=== PATIENT | female | born 1960 | race Caucasian/White ===

== ENCOUNTER 2023-01-29 18:32 | Inpatient (IN) ==
--- NOTE | 2023-01-29 18:50 | Emergency Department Note ---
Impression & Plan Diabetes mellitus type 1 with complications, Elevated troponin, Nausea & vomiting ED Provider Note Provider: Zeferino Gonsalez MD DATE OF SERVICE: 01/29/2023 CHIEF COMPLAINT: Elevated blood sugar, nausea and vomiting HISTORY OF PRESENT ILLNESS: Patient is a 62-year-old history of diabetes by her report type I as well as hypothyroidism presenting here reporting elevated blood sugars and episodes of nausea and vomiting earlier. States her Dexcom has been functioning high for at least the last day. Blood sugars in the 400s at home and utilize extra insulin. Has been following with the diabetes clinic care and testing was concerning for type I component. Did have some changes of her medi cations the last several months. Denies significant illness. Denies nausea now. Denies abdominal pain now or earlier. Does report some thirst but denies any diarrhea or sick contacts. No trauma reported. PAST MEDICAL HISTORY: As noted above MEDICATIONS: Reviewed home medication list including insulin she did take extra units of insulin today. SOCIAL HISTORY: Lives with sister PHYSICAL EXAM: GENERAL: alert and oriented in no acute distress on stretcher Head: normocephalic and atraumatic EYES: No injection, discharge or icterus. NECK: Trachea midline. Supple. ENT: Mucous membranes pink and moist. LUNGS: Airway patent. No retractions. Breath sounds clear with good air entry bilaterally. HEART: Regular rate and rhythm. No chest wall tenderness ABDOMEN: Soft and non-tender, without guarding or rebound. SKIN: Acyanotic, warm, dry, without rashes EXTREMITIES: Without swelling, tenderness or deformity NEUROLOGICAL: No focal deficits. No aphasia. No facial droop or slurred speech. Ambulatory. EK bpm normal sinus rhythm. No PVC or PAC. No acute ST segment elevation or depression with a QTc of 457. CONTINUOUS CARDIAC MONITORING: was ordered and showed a heart rate of 80s-90s bpm in normal sinus rhythm Patient's laboratory studies and imaging reviewed. Differential includes Gastroenteritis, food borne illness, infections, appendicitis, diverticulitis, inflammatory bowel disease, obstruction, GI bleed, biliary pathology, volvulus, DKA/HHS as well as other pathologies. IMPRESSION/MEDICAL DECISION MAKING: Patient with history of diabetes from the reviewed records from the diabetes visits appears to be a type I. Blood sugar significantly elevated. Evidently has been almost running out of her insulin at home. [id number] testing completed with some anion gap. Formal labs sent. VBG however reassuring without significant acidosis and thus doubt true DKA at this time. Given some IV fluid here. Does have a leukocytosis of 16 of unclear etiology. Could represent a viral gastroenteritis but symptoms have improved now and she is has a benign abdomen. Doubt acute intra-abdominal pathology such as perforation, obstruction, cholecystitis, appendicitis, or diverticulitis given her well exam of the abdomen. Negative COVID testing. Formal CMP with some slight pseudohyponatremia. Bicarb of 20 with an anion gap of 15. Creatinine 1.22. Normal blood sugar 424. No signs of hepatitis or pancreatitis. Question if she may be teetering on the edge of transitioning to more of a ketotic state or DKA. In addition IV fluid and given some insulin. Discussed with her staying for further blood sugar optimization and care given her GI symptoms and these findings. Troponin does return elevated 108. Unclear of baseline. No severe renal dysfunction. EKG without acute STEMI findings. Will need trended. Given a dose of aspirin with some Zofran here to prevent vomiting this. Discussed further observation. She was in agreement the hospitalist contacted. DIAGNOSIS: Hyperglycemia due to type 1 diabetes, elevated troponin, nausea and vomiting DISPOSITION: Hospitalist will evaluate Patient was agreeable with this plan. Past Med/Surg History Social History Smoking Status: Never smoker Second Hand Exposure: No; Do You Dip or Chew Tobacco: No; Tobacco Cessation Education Requested by Patient: No Hx Alcohol Use: No Hx Substance Use: No Communication Ability: Effective Beliefs That Will Affect Care: None Current Living Situation: Family Other Information That Helps Us Care for You: No Feels Safe at Home: Yes Safety Concerns: Feels Safe At This Time Assistive Devices: None Allergies Allergies Allergy/AdvReac Type Severity Reaction Status Date / Time tetanus toxoid, adsorbed AdvReac Intermediate SWELLING Verified 01/29/23 19:26 AT [facility] Home Meds Home Medications Medication Instructions Recorded Confirmed aspirin 81 mg tablet,delayed 81 mg PO DAILY 09/04/22 01/29/23 release (Adult Low Dose Aspirin) blood sugar diagnostic (OneTouch 09/04/22 11/14/22 Ultra Test strips) blood-glucose meter (OneTouch 09/04/22 11/14/22 Ultra2 Meter) blood-glucose meter,continuous 09/04/22 11/14/22 (Dexcom G6 Braiding Operator) blood-glucose sensor (Dexcom G6 09/04/22 11/14/22 Sensor device) blood-glucose transmitter (Dexcom 09/04/22 11/14/22 G6 Transmitter device) cholecalciferol (vitamin D3) 25 25 mcg PO DAILY 09/04/22 01/29/23 mcg (1,000 unit) chewable tablet furosemide 40 mg tablet 40 mg PO DAILY 09/04/22 01/29/23 liver detox 1 dose PO DAILY 09/04/22 01/29/23 insulin detemir U-100 100 unit/mL 11 unit subcut TID 01/29/23 01/29/23 (3 mL) subcutaneous pen (Levemir FlexPen) Previous Rx's Medication Instructions Recorded rosuvastatin 10 mg tablet (Crestor) 10 mg PO DAILY #30 tabs 09/05/22 levothyroxine 112 mcg tablet 112 mcg PO DAILY #30 tabs 09/06/22 insulin aspart U-100 100 unit/mL 8 unit (0.08 mL) subcut TID #7.2 mL 12/26/22 subcutaneous solution (Novolog U-100 Insulin aspart) Results & Data (ED) Vital Signs Vital Signs - 24 hr 01/29/23 18:35 01/29/23 18:51 01/29/23 18:51 Temperature 36.7 C 36.7 C Temperature Source Oral Oral Pulse Rate 98 H 94 H Pulse Rate [Right Finger] 93 H Pulse Rate from SpO2 Sensor Pulse Rhythm Regular Regular Pulse Rhythm [Right Finger] Regular Pulse Strength Normal Pulse Strength [Right Finger] Normal Respiratory Rate 22 23 13 Respiratory Effort / Characteristics Non-Labored Spontaneous Non-Labored Spontaneous Respiratory Depth Normal Normal Respiratory Pattern Regular Regular Blood Pressure 106/58 L Blood Pressure [Right Arm] 106/58 L Blood Pressure Mean 74 Blood Pressure Mean [Right Arm] 74 Blood Pressure Position Sitting Blood Pressure Position [Right Arm] Lying Pulse Oximetry 100 99 99 Oxygen Delivery Method Room Air Room Air Sepsis Recent Fever Within 48 Hours No Sepsis New/Unexplained Change in Mental Status No Sepsis Action Taken by Nursing No Action Required 01/29/23 18:50 01/29/23 18:48 01/29/23 18:50 Temperature Temperature Source Pulse Rate 94 H 94 H 94 H Pulse Rate [Right Finger] Pulse Rate from SpO2 Sensor 94 H 93 H Pulse Rhythm Pulse Rhythm [Right Finger] Pulse Strength Pulse Strength [Right Finger] Respiratory Rate 22 31 H Respiratory Effort / Characteristics Respiratory Depth Respiratory Pattern Blood Pressure Blood Pressure [Right Arm] Blood Pressure Mean Blood Pressure Mean [Right Arm] Blood Pressure Position Blood Pressure Position [Right Arm] Pulse Oximetry 99 99 Oxygen Delivery Method Sepsis Recent Fever Within 48 Hours Sepsis New/Unexplained Change in Mental Status Sepsis Action Taken by Nursing 01/29/23 19:00 01/29/23 19:00 01/29/23 19:10 Temperature Temperature Source Pulse Rate 93 H 93 H Pulse Rate [Right Finger] Pulse Rate from SpO2 Sensor 93 H 93 H Pulse Rhythm Pulse Rhythm [Right Finger] Pulse Strength Pulse Strength [Right Finger] Respiratory Rate 34 H 27 H Respiratory Effort / Characteristics Respiratory Depth Respiratory Pattern Blood Pressure 112/53 L Blood Pressure [Right Arm] Blood Pressure Mean 77 Blood Pressure Mean [Right Arm] Blood Pressure Position Blood Pressure Position [Right Arm] Pulse Oximetry 99 100 Oxygen Delivery Method Sepsis Recent Fever Within 48 Hours Sepsis New/Unexplained Change in Mental Status Sepsis Action Taken by Nursing 01/29/23 19:20 01/29/23 19:30 01/29/23 19:30 Temperature Temperature Source Pulse Rate 93 H 94 H Pulse Rate [Right Finger] Pulse Rate from SpO2 Sensor 93 H 94 H Pulse Rhythm Pulse Rhythm [Right Finger] Pulse Strength Pulse Strength [Right Finger] Respiratory Rate 20 0 L Respiratory Effort / Characteristics Respiratory Depth Respiratory Pattern Blood Pressure 116/60 Blood Pressure [Right Arm] Blood Pressure Mean 90 Blood Pressure Mean [Right Arm] Blood Pressure Position Blood Pressure Position [Right Arm] Pulse Oximetry 99 98 Oxygen Delivery Method Sepsis Recent Fever Within 48 Hours Sepsis New/Unexplained Change in Mental Status Sepsis Action Taken by Nursing 01/29/23 19:40 01/29/23 19:50 01/29/23 20:00 Temperature Temperature Source Pulse Rate 95 H 98 H Pulse Rate [Right Finger] Pulse Rate from SpO2 Sensor 95 H 98 H Pulse Rhythm Pulse Rhythm [Right Finger] Pulse Strength Pulse Strength [Right Finger] Respiratory Rate 21 15 Respiratory Effort / Characteristics Respiratory Depth Respiratory Pattern Blood Pressure 111/58 L Blood Pressure [Right Arm] Blood Pressure Mean 62 Blood Pressure Mean [Right Arm] Blood Pressure Position Blood Pressure Position [Right Arm] Pulse Oximetry 98 99 Oxygen Delivery Method Sepsis Recent Fever Within 48 Hours Sepsis New/Unexplained Change in Mental Status Sepsis Action Taken by Nursing 01/29/23 20:00 01/29/23 20:10 01/29/23 20:20 Temperature Temperature Source Pulse Rate 94 H 93 H 93 H Pulse Rate [Right Finger] Pulse Rate from SpO2 Sensor 94 H 93 H 93 H Pulse Rhythm Pulse Rhythm [Right Finger] Pulse Strength Pulse Strength [Right Finger] Respiratory Rate 6 L 22 17 Respiratory Effort / Characteristics Respiratory Depth Respiratory Pattern Blood Pressure Blood Pressure [Right Arm] Blood Pressure Mean Blood Pressure Mean [Right Arm] Blood Pressure Position Blood Pressure Position [Right Arm] Pulse Oximetry 98 98 98 Oxygen Delivery Method Sepsis Recent Fever Within 48 Hours Sepsis New/Unexplained Change in Mental Status Sepsis Action Taken by Nursing 01/29/23 20:30 01/29/23 20:30 01/29/23 20:40 Temperature Temperature Source Pulse Rate 94 H 94 H Pulse Rate [Right Finger] Pulse Rate from SpO2 Sensor 94 H 94 H Pulse Rhythm Pulse Rhythm [Right Finger] Pulse Strength Pulse Strength [Right Finger] Respiratory Rate 15 24 Respiratory Effort / Characteristics Respiratory Depth Respiratory Pattern Blood Pressure 114/59 L Blood Pressure [Right Arm] Blood Pressure Mean 87 Blood Pressure Mean [Right Arm] Blood Pressure Position Blood Pressure Position [Right Arm] Pulse Oximetry 98 97 Oxygen Delivery Method Sepsis Recent Fever Within 48 Hours Sepsis New/Unexplained Change in Mental Status Sepsis Action Taken by Nursing 01/29/23 20:50 01/29/23 21:00 01/29/23 21:01 Temperature Temperature Source Pulse Rate 95 H 95 H 94 H Pulse Rate [Right Finger] Pulse Rate from SpO2 Sensor 97 H 95 H 94 H Pulse Rhythm Pulse Rhythm [Right Finger] Pulse Strength Pulse Strength [Right Finger] Respiratory Rate 22 16 19 Respiratory Effort / Characteristics Respiratory Depth Respiratory Pattern Blood Pressure Blood Pressure [Right Arm] Blood Pressure Mean Blood Pressure Mean [Right Arm] Blood Pressure Position Blood Pressure Position [Right Arm] Pulse Oximetry 88 L 97 97 Oxygen Delivery Method Sepsis Recent Fever Within 48 Hours Sepsis New/Unexplained Change in Mental Status Sepsis Action Taken by Nursing 01/29/23 21:01 01/29/23 21:10 01/29/23 21:20 Temperature Temperature Source Pulse Rate 94 H 93 H Pulse Rate [Right Finger] Pulse Rate from SpO2 Sensor 94 H 94 H Pulse Rhythm Pulse Rhythm [Right Finger] Pulse Strength Pulse Strength [Right Finger] Respiratory Rate 22 19 Respiratory Effort / Characteristics Respiratory Depth Respiratory Pattern Blood Pressure 98/51 L Blood Pressure [Right Arm] Blood Pressure Mean 67 Blood Pressure Mean [Right Arm] Blood Pressure Position Blood Pressure Position [Right Arm] Pulse Oximetry 98 98 Oxygen Delivery Method Sepsis Recent Fever Within 48 Hours Sepsis New/Unexplained Change in Mental Status Sepsis Action Taken by Nursing Laboratory Data 01/29/23 18:52 01/29/23 18:52 Lab Results 01/29/23 01/29/23 01/29/23 Range/Units 18:48 18:52 18:52 WBC 16.40 H (4.8-10.8) K/ul RBC 4.41 (4.20-5.40) M/uL Hgb 13.9 (12.0-16.0) g/dl POC Hgb 12.9 (12.0-16.0) g/dl Hct 38.2 (37.0-47.0) % POC Hct 38 (37-47) % MCV 86.6 (80.0-100.0) fL MCH 31.5 (25.0-34.0) pg MCHC 36.4 H (32.0-36.0) g/dL RDW Std Deviation 39.6 (36.4-46.3) fL RDW Coeff of Tressa 12.5 (11.5-14.5) % Plt Count 230 (130-400) K/uL MPV 9.7 (9.4-12.4) fL Immature Gran % (Auto) 0.5 % Neut % (Auto) 77.0 % Lymph % (Auto) 11.1 % Wright % (Auto) 11.1 % Eos % (Auto) 0.0 % Baso % (Auto) 0.3 % Neut # (Auto) 12.62 H (1.40-6.50) K/uL Lymph # (Auto) 1.82 (1.2-3.4) K/uL Wright # (Auto) 1.82 H (0.11-0.59) K/uL Eos # (Auto) 0.00 (0-0.50) K/uL Baso # (Auto) 0.05 (0-0.2) K/uL Immature Gran # (Auto) 0.09 (0.01-0.20) K/uL VBG pH (7.36-7.41) VBG pCO2 (38-50) mmHg VBG pO2 mmHg VBG HCO3 mmol/L VBG O2 Saturation % VBG Base Excess mEq/L POC Sodium 136 (135-144) mmol/L Sodium 134 L (136-145) mmol/L POC Potassium 3.8 (3.3-5.0) mmol/L Potassium 3.8 (3.5-5.1) mmol/L POC Chloride 100 L (101-112) mmol/L Chloride 99 (98-107) mmol/L Carbon Dioxide 20 L (21-32) mmol/L POC Total CO2 19 L (24-31) mmol/L Anion Gap 15 H (3-11) POC Anion Gap 22.0 (16-25) mmol/L POC BUN 38 H (7-18) mg/dl BUN 42 H (6-23) mg/dl Creatinine 1.22 H (0.6-1.2) mg/dl POC Creatinine 1.1 (0.6-1.3) mg/dl Est Cr Clr Drug Dosing 47.6 ml/min Est GFR ( Amer) 55.0 ml/min Est GFR (Non-Af Amer) 47.4 ml/min BUN/Creatinine Ratio 34.4 H (10-20) Glucose 424 H* (70-99(Fasting)) mg/dl POC Glucose (other) 419 H* (70-99) mg/dl Calcium 9.5 (8.6-10.3) mg/dl POC Ioniz Calcium Aliya 1.18 (1.12-1.32) mmol/l Magnesium 1.9 (1.7-2.4) mg/dl Total Bilirubin 0.9 (0.2-1.0) mg/dl AST 14 (13-39) U/L ALT 7 (7-52) U/L Alkaline Phosphatase 72 (34-104) U/L Troponin I High Sens 108.6 H* (0-14) pg/ml Total Protein 7.0 (6.0-8.3) gm/dl Albumin 4.0 (3.4-5.0) gm/dl Globulin 3.0 (2.5-4.0) gm/dl Albumin/Globulin Ratio 1.3 (0.9-2) Lipase 8 L (11-82) U/L SARS-CoV-2, RNA, NAAT (NEGATIVE) 01/29/23 01/29/23 Range/Units 18:55 18:55 WBC (4.8-10.8) K/ul RBC (4.20-5.40) M/uL Hgb (12.0-16.0) g/dl POC Hgb (12.0-16.0) g/dl Hct (37.0-47.0) % POC Hct (37-47) % MCV (80.0-100.0) fL MCH (25.0-34.0) pg MCHC (32.0-36.0) g/dL RDW Std Deviation (36.4-46.3) fL RDW Coeff of Tressa (11.5-14.5) % Plt Count (130-400) K/uL MPV (9.4-12.4) fL Immature Gran % (Auto) % Neut % (Auto) % Lymph % (Auto) % Wright % (Auto) % Eos % (Auto) % Baso % (Auto) % Neut # (Auto) (1.40-6.50) K/uL Lymph # (Auto) (1.2-3.4) K/uL Wright # (Auto) (0.11-0.59) K/uL Eos # (Auto) (0-0.50) K/uL Baso # (Auto) (0-0.2) K/uL Immature Gran # (Auto) (0.01-0.20) K/uL VBG pH 7.37 (7.36-7.41) VBG pCO2 35 L (38-50) mmHg VBG pO2 34 mmHg VBG HCO3 20 mmol/L VBG O2 Saturation 65.4 % VBG Base Excess -4.4 mEq/L POC Sodium (135-144) mmol/L Sodium (136-145) mmol/L POC Potassium (3.3-5.0) mmol/L Potassium (3.5-5.1) mmol/L POC Chloride (101-112) mmol/L Chloride (98-107) mmol/L Carbon Dioxide (21-32) mmol/L POC Total CO2 (24-31) mmol/L Anion Gap (3-11) POC Anion Gap (16-25) mmol/L POC BUN (7-18) mg/dl BUN (6-23) mg/dl Creatinine (0.6-1.2) mg/dl POC Creatinine (0.6-1.3) mg/dl Est Cr Clr Drug Dosing ml/min Est GFR ( Amer) ml/min Est GFR (Non-Af Amer) ml/min BUN/Creatinine Ratio (10-20) Glucose (70-99(Fasting)) mg/dl POC Glucose (other) (70-99) mg/dl Calcium (8.6-10.3) mg/dl POC Ioniz Calcium Aliya (1.12-1.32) mmol/l Magnesium (1.7-2.4) mg/dl Total Bilirubin (0.2-1.0) mg/dl AST (13-39) U/L ALT (7-52) U/L Alkaline Phosphatase (34-104) U/L Troponin I High Sens (0-14) pg/ml Total Protein (6.0-8.3) gm/dl Albumin (3.4-5.0) gm/dl Globulin (2.5-4.0) gm/dl Albumin/Globulin Ratio (0.9-2) Lipase (11-82) U/L SARS-CoV-2, RNA, NAAT NEGATIVE (NEGATIVE) Administered Medications Discontinued Medications Aspirin (Aspirin 81 Mg Chew) 324 mg PO NOW STA Stop: 01/29/23 19:41 Last Admin: 01/29/23 20:13 Dose: 324 mg Documented By: HUMBERTO Sodium Chloride (Nss) 500 mls @ 999 mls/hr IV .Q31M KELLY Stop: 01/29/23 19:30 Last Infusion: 01/29/23 19:39 Dose: 0 mls/hr Documented By: Admin: 01/29/23 19:08 Dose: 999 mls/hr Documented By: GM Insulin Aspart (Insulin Aspart Per Unit Charge) 10 units SC NOW STA Stop: 01/29/23 23:30 Last Admin: 01/29/23 23:39 Dose: 10 units Documented By: BECKI Co-signed By: MYLENE Insulin Glargine (Lantus Per Unit Charge) 10 units SQ ONCE ONE Stop: 01/29/23 23:31 Last Admin: 01/29/23 23:39 Dose: 10 units Documented By: BECKI Co-signed By: MYLENE Insulin Human Regular (Novolin-R Insulin Per Unit Charge) 7 units IV NOW STA Stop: 01/29/23 19:41 Last Admin: 01/29/23 20:13 Dose: 7 units Documented By: HUMBERTO Co-signed By: GROUP PRESIDENT Ondansetron HCl (Ondansetron Inj 2 Mg/Ml 2 Ml Vial) 4 mg IV NOW STA Stop: 01/29/23 19:41 Last Admin: 01/29/23 20:13 Dose: 4 mg Documented By: ML Discharge Plan Visit Data Chief Complaint: Hyperglycemia Stated Complaint: HYPERGLYCEMIA ED Provider: Zeferino Gonsalez Discharge Problem: Diabetes mellitus type 1 with complications, Elevated troponin, Nausea & vomiting Patient Disposition: Admitted As Inpatient Discharge Instructions Interventions: ED Discharge Assessment Last Done: 01/29/23 21:52
[2023-01-29 19:00] LABS: iSTAT Creatinine 1.1 mg/dl (0.6-1.3); iSTAT Hemoglobin 12.9 g/dl (12.0-16.0); iSTAT Ionized Calcium 1.18 mmol/l (1.12-1.32); iSTAT Potassium 3.8 mmol/L (3.3-5.0)
[2023-01-29] MEDS ORDERED: SODIUM CHLORIDE 0.9% 500 ML IV SCH (19:00)
[2023-01-29 19:02] LABS: Base Excess VBG -4.4 mEq/L; HCO3 VBG 20 mmol/L; Oxygen Saturation VBG 65.4 %; PCO2 VBG 35 mmHg (38-50); PO2 VBG 34 mmHg; pH VBG 7.37 (7.36-7.41)
[2023-01-29 19:02] LABS: Basophils # (auto) 0.05 K/uL (0-0.2); Basophils % (auto) 0.3 %; Hematocrit (blood only) 38.2 % (37.0-47.0); Hemoglobin 13.9 g/dl (12.0-16.0); Immature Granulocytes # (auto) 0.09 K/uL (0.01-0.20); Immature Granulocytes % (auto) 0.5 %; Lymphocytes # (auto) 1.82 K/uL (1.2-3.4); Lymphocytes % (auto) 11.1 %; Mean Corpuscular Hemoglobin 31.5 pg (25.0-34.0); Mean Corpuscular Hgb Conc 36.4 g/dL (32.0-36.0); Mean Corpuscular Volume 86.6 fL (80.0-100.0); Mean Platelet Volume 9.7 fL (9.4-12.4); Monocytes # (auto) 1.82 K/uL (0.11-0.59); Monocytes % (auto) 11.1 %; Neutrophils # (auto) 12.62 K/uL (1.40-6.50); Platelet Count 230 K/uL (130-400); RDW Coefficient of Variation 12.5 % (11.5-14.5); RDW Standard Deviation 39.6 fL (36.4-46.3); Red Blood Count 4.41 M/uL (4.20-5.40)
[2023-01-29 19:27] LABS: Albumin Globulin Ratio 1.3 (0.9-2); BUN Creatinine Ratio 34.4 (10-20); Bilirubin,Total 0.9 mg/dl (0.2-1.0); Calcium 9.5 mg/dl (8.6-10.3); Creatinine Clr Calc Pharmacy 47.6 ml/min; Est GFR (Non-African American) 47.4 ml/min; Magnesium 1.9 mg/dl (1.7-2.4); Potassium 3.8 mmol/L (3.5-5.1)
[2023-01-29 19:39] LABS: Troponin I High Sensitivity 108.6 pg/ml (0-14)
[2023-01-29] MEDS ORDERED: NovoLIN-R INSULIN PER UNIT CHARGE IV STA (19:40)
[2023-01-29] MEDS ORDERED: ONDANSETRON INJ 2 MG/ML 2 ML VIAL IV STA (19:40)
[2023-01-29] MEDS ORDERED: ASPIRIN 81 MG CHEW PO STA (19:40)
--- NOTE | 2023-01-29 21:21 | History & Physical Report ---
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 Glucose was 424 in the ED, received 7 units of regular insulin IV from the ED, with improvement in glucose to 332. Patient reports that she usually takes Levemir 11 units 3 times daily and NovoLog 8 units 3 times daily together. However, patient does report recent change in October from Levemir 25 units in the morning to 11 units subcu twice daily. Patient will get formulary interchange to glargine 10 units subcu this evening, along with 10 units NovoLog, will continue with coverage overnight, and dosing will need to be verified in the morning with her commercial reporter. No signs of infection. Patient had received normal saline 500 mL from the ED We will place on NSS + KCl 20 mEq at 125 MLS per hour, and follow serial BMP and magnesium levels Elevated troponin/hypertension/history lower extremity edema- The patient will be admitted to telemetry for serial cardiac enzymes, serial EKG's, cardiac rhythm monitoring and a 2-D echocardiogram with Dopplers. Troponin 108.6 on admission, likely supply demand mismatch She was given aspirin 324 mg from the ED Continue aspirin 81 mg daily Hold furosemide Hypothyroidism- Continue levothyroxine at 112 mcg daily Hyperlipidemia- Continue rosuvastatin 10 mg daily History of Present Illness Chief Complaint: The patient is referred to the emergency department by her commercial reporter due to elevated blood sugars Primary Care Provider: Rito Berrios PA-C The patient is a 62-year-old female with a past medical history including diabetes mellitus type 1, diabetic peripheral neuropathy, dyslipidemia and hypothyroidism. She ran out of her NovoLog after her last dose yesterday morning, and missed 3 successive doses since that time. She developed nausea and vomiting this morning, tried to take a dose early this afternoon, along with her Levemir, blood sugars continue to remain in the 400s, so patient was advised to come to the ED by her commercial reporter. Blood sugar was 424 in the ED, and improved to 300 7:20 units of regular insulin IV from the ED Patient was also found to have elevated troponin to 108.6, but had no symptoms of chest pain, shortness of breath or any other cardiac symptoms. Allergies Allergy/AdvReac Type Severity Reaction Status Date / Time tetanus toxoid, adsorbed AdvReac Intermediate SWELLING Verified 01/29/23 19:26 AT SITE AND REDNESS Home Medications Medication Instructions Recorded Confirmed Type aspirin 81 mg tablet,delayed 81 mg PO DAILY 09/04/22 01/29/23 History release (Adult Low Dose Aspirin) blood sugar diagnostic (OneTouch 09/04/22 11/14/22 History Ultra Test strips) blood-glucose meter (OneTouch 09/04/22 11/14/22 History Ultra2 Meter) blood-glucose meter,continuous 09/04/22 11/14/22 History (Dexcom G6 Anatomy Professor) blood-glucose sensor (Dexcom G6 09/04/22 11/14/22 History Sensor device) blood-glucose transmitter (Dexcom 09/04/22 11/14/22 History G6 Transmitter device) cholecalciferol (vitamin D3) 25 25 mcg PO DAILY 09/04/22 01/29/23 History mcg (1,000 unit) chewable tablet furosemide 40 mg tablet 40 mg PO DAILY 09/04/22 01/29/23 History liver detox 1 dose PO DAILY 09/04/22 01/29/23 History rosuvastatin 10 mg tablet (Crestor) 10 mg PO DAILY #30 tabs 09/05/22 01/29/23 Rx levothyroxine 112 mcg tablet 112 mcg PO DAILY #30 tabs 09/06/22 01/29/23 Rx insulin aspart U-100 100 unit/mL 8 unit (0.08 mL) subcut TID #7.2 mL 12/26/22 01/29/23 Rx subcutaneous solution (Novolog U-100 Insulin aspart) insulin detemir U-100 100 unit/mL 11 unit subcut TID 01/29/23 01/29/23 History (3 mL) subcutaneous pen (Levemir FlexPen) Past Med/Surg History Social History Smoking Status: Never smoker Second Hand Exposure: No; Do You Dip or Chew Tobacco: No; Tobacco Cessation Education Requested by Patient: No Hx Alcohol Use: No Hx Substance Use: No Communication Ability: Effective Beliefs That Will Affect Care: None Current Living Situation: Family Other Information That Helps Us Care for You: No Feels Safe at Home: Yes Safety Concerns: Feels Safe At This Time Assistive Devices: None Review of Systems Review of Systems: The patient denies chest pain, palpitations, shortness of breath, dyspnea on exertion, cough, lower extremity swelling, sore throat, fevers, chills, sweats, weight change, fatigue, diarrhea , constipation, abdominal pain, pelvic pain, blood in urine or stool, dysuria, urinary frequency or urgency, lightheadedness, dizziness, headache, memory loss, loss of consciousness, rash, abnormal bruising or bleeding, imbalance, focal or generalized weakness, numbness or tingling in arms or legs, generalized arthralgias or myalgias, back or neck pain, or night sweats. The review of systems is otherwise negative other than for that already noted above, and at least 10 systems have been reviewed. Physical Exam Physical Exam: The patient is awake, alert and oriented 3, well developed and well nourished, normocephalic and atraumatic, lying in bed and in no acute distress. HEENT--PERRL, EOMI, mucous membranes and oropharynx mildly dry. Neck--supple. No JVD. No bruits. Thyroid normal, trachea midline, no adenopathy. Heart--normal S1 and S2. No murmurs, rubs or gallops. Lungs--clear bilaterally, no respiratory distress, no accessory muscle use. Abdomen--normal bowel sounds and soft. Nontender. Nondistended, no hernias or masses, no organomegaly. Extremities--no cyanosis or clubbing. No edema. Dermatologic--normal skin turgor, normal color, no abnormal lymph nodes, no rash. Neurologic--cranial nerves II through XII grossly intact. Rheumatologic--normal range of motion. Psychiatric--normal affect. Results & Data Results & Data Vital Signs (Past 12 Hours) Vital Signs Temp Pulse Pulse Resp BP BP Pulse Ox 01/29/23 18:50 94 H 31 H 99 01/29/23 18:48 94 H 22 99 01/29/23 18:50 94 H 01/29/23 18:51 36.7 C 93 H 13 106/58 L 99 01/29/23 18:51 94 H 23 99 01/29/23 18:35 36.7 C 98 H 22 106/58 L 100 O2 Del Method 01/29/23 18:50 01/29/23 18:48 01/29/23 18:50 01/29/23 18:51 Room Air 01/29/23 18:51 01/29/23 18:35 Room Air Laboratory Results Laboratory Results WBC 16.40 K/ul (4.8-10.8) H 01/29/23 18:52 RBC 4.41 M/uL (4.20-5.40) 01/29/23 18:52 Hgb 13.9 g/dl (12.0-16.0) 01/29/23 18:52 POC Hgb 12.9 g/dl (12.0-16.0) 01/29/23 18:48 Hct 38.2 % (37.0-47.0) 01/29/23 18:52 POC Hct 38 % (37-47) 01/29/23 18:48 MCV 86.6 fL (80.0-100.0) 01/29/23 18:52 MCH 31.5 pg (25.0-34.0) 01/29/23 18:52 MCHC 36.4 g/dL (32.0-36.0) H 01/29/23 18:52 RDW Std Deviation 39.6 fL (36.4-46.3) 01/29/23 18:52 RDW Coeff of Tressa 12.5 % (11.5-14.5) 01/29/23 18:52 Plt Count 230 K/uL (130-400) 01/29/23 18:52 MPV 9.7 fL (9.4-12.4) 01/29/23 18:52 Immature Gran % (Auto) 0.5 % 01/29/23 18:52 Neut % (Auto) 77.0 % 01/29/23 18:52 Lymph % (Auto) 11.1 % 01/29/23 18:52 Barren % (Auto) 11.1 % 01/29/23 18:52 Eos % (Auto) 0.0 % 01/29/23 18:52 Baso % (Auto) 0.3 % 01/29/23 18:52 Neut # (Auto) 12.62 K/uL (1.40-6.50) H 01/29/23 18:52 Lymph # (Auto) 1.82 K/uL (1.2-3.4) 01/29/23 18:52 Barren # (Auto) 1.82 K/uL (0.11-0.59) H 01/29/23 18:52 Eos # (Auto) 0.00 K/uL (0-0.50) 01/29/23 18:52 Baso # (Auto) 0.05 K/uL (0-0.2) 01/29/23 18:52 Immature Gran # (Auto) 0.09 K/uL (0.01-0.20) 01/29/23 18:52 VBG pH 7.37 (7.36-7.41) 01/29/23 18:55 VBG pCO2 35 mmHg (38-50) L 01/29/23 18:55 VBG pO2 34 mmHg 01/29/23 18:55 VBG HCO3 20 mmol/L 01/29/23 18:55 VBG O2 Saturation 65.4 % 01/29/23 18:55 VBG Base Excess -4.4 mEq/L 01/29/23 18:55 POC Sodium 136 mmol/L (135-144) 01/29/23 18:48 Sodium 134 mmol/L (136-145) L 01/29/23 18:52 POC Potassium 3.8 mmol/L (3.3-5.0) 01/29/23 18:48 Potassium 3.8 mmol/L (3.5-5.1) 01/29/23 18:52 POC Chloride 100 mmol/L (101-112) L 01/29/23 18:48 Chloride 99 mmol/L (98-107) 01/29/23 18:52 Carbon Dioxide 20 mmol/L (21-32) L 01/29/23 18:52 POC Total CO2 19 mmol/L (24-31) L 01/29/23 18:48 Anion Gap 15 (3-11) H 01/29/23 18:52 POC Anion Gap 22.0 mmol/L (16-25) 01/29/23 18:48 POC BUN 38 mg/dl (7-18) H 01/29/23 18:48 BUN 42 mg/dl (6-23) H 01/29/23 18:52 Creatinine 1.22 mg/dl (0.6-1.2) H 01/29/23 18:52 POC Creatinine 1.1 mg/dl (0.6-1.3) 01/29/23 18:48 Est Cr Clr Drug Dosing 47.6 ml/min 01/29/23 18:52 Est GFR ( Amer) 55.0 ml/min 01/29/23 18:52 Est GFR (Non-Af Amer) 47.4 ml/min 01/29/23 18:52 BUN/Creatinine Ratio 34.4 (10-20) H 01/29/23 18:52 Glucose 424 mg/dl (70-99(Fasting)) H* 01/29/23 18:52 POC Glucose 332 mg/dl (70-99) H* 01/29/23 22:51 POC Glucose (other) 419 mg/dl (70-99) H* 01/29/23 18:48 Calcium 9.5 mg/dl (8.6-10.3) 01/29/23 18:52 POC Ioniz Calcium Aliya 1.18 mmol/l (1.12-1.32) 01/29/23 18:48 Magnesium 1.9 mg/dl (1.7-2.4) 01/29/23 18:52 Total Bilirubin 0.9 mg/dl (0.2-1.0) 01/29/23 18:52 AST 14 U/L (13-39) 01/29/23 18:52 ALT 7 U/L (7-52) 01/29/23 18:52 Alkaline Phosphatase 72 U/L (34-104) 01/29/23 18:52 Troponin I High Sens 144.9 pg/ml (0-14) H* D 01/29/23 22:54 Total Protein 7.0 gm/dl (6.0-8.3) 01/29/23 18:52 Albumin 4.0 gm/dl (3.4-5.0) 01/29/23 18:52 Globulin 3.0 gm/dl (2.5-4.0) 01/29/23 18:52 Albumin/Globulin Ratio 1.3 (0.9-2) 01/29/23 18:52 Lipase 8 U/L (11-82) L 01/29/23 18:52 SARS-CoV-2, RNA, NAAT NEGATIVE (NEGATIVE) 01/29/23 18:55 Code Status & VTE Plan Code Status Full code VTE Prophylaxis Plan VTE Prophylaxis will be ordered: Yes PG Care Time/CCT Total # of Minutes Spent Total Time Spent with Patient: Total time spent is greater than 50% in coordination of care (as documented) at patient's floor/unit and/or counseling patient: Coding Level of Care Code 67786 INT INP/OBS CARE 3/75MIN Diagnoses Elevated troponin R77.8 Nausea & vomiting R11.2 Dyslipidemia E78.5 Hyperglycemia due to type 1 diabetes mellitus E10.65 Hypothyroidism E03.9 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
[2023-01-29] MEDS ORDERED: CARBOHYDRATES FOR HYPOGLYCEMIA PO PRN (22:54)
[2023-01-29] MEDS ORDERED: ACETAMINOPHEN 325 MG TAB PO PRN (22:54)
[2023-01-29] MEDS ORDERED: GLUCOSE 10 TAB/TUBE PO PRN (22:54)
[2023-01-29] MEDS ORDERED: DEXTROSE 50% 50 ML SYRINGE IV PRN (22:54)
[2023-01-29] MEDS ORDERED: GLUCAGON FOR INJ 1 MG VIAL SQ PRN (22:54)
[2023-01-29] MEDS ORDERED: GLUCOSE 40% GEL 15 GM TUBE PO PRN (22:54)
[2023-01-29] MEDS ORDERED: NSS + 20MEQ KCL 20 MEQ/1,000 ML BAG IV SCH (22:54)
[2023-01-29] MEDS ORDERED: ONDANSETRON INJ 2 MG/ML 2 ML VIAL IV PRN (22:54)
[2023-01-29] MEDS ORDERED: INSULIN ASPART PER UNIT CHARGE SC STA (23:29)
[2023-01-29] MEDS ORDERED: LANTUS PER UNIT CHARGE SQ ONE (23:30)
[2023-01-29] MEDS: NSS + 20MEQ KCL 20 MEQ/1,000 ML BAG IV SCH (23:57)
[2023-01-30] MEDS: LEVOTHYROXINE SODIUM 112 MCG TABLET PO SCH (06:00)
[2023-01-30 06:36] LABS: Albumin Globulin Ratio 1.4 (0.9-2); Albumin Level 3.8 gm/dl (3.4-5.0); BUN Creatinine Ratio 34.3 (10-20); Calcium 9.6 mg/dl (8.6-10.3); Creatinine Clr Calc Pharmacy 59.2 ml/min; Est GFR (African American) 70.8 ml/min; Est GFR (Non-African American) 61.1 ml/min; Globulin 2.7 gm/dl (2.5-4.0); Magnesium 1.9 mg/dl (1.7-2.4); Total Protein 6.5 gm/dl (6.0-8.3)
[2023-01-30 06:37] LABS: Basophils # (auto) 0.05 K/uL (0-0.2); Basophils % (auto) 0.3 %; Eosinophils # (auto) 0.03 K/uL (0-0.50); Eosinophils % (auto) 0.2 %; Hematocrit (blood only) 38.1 % (37.0-47.0); Hemoglobin 13.5 g/dl (12.0-16.0); Immature Granulocytes # (auto) 0.07 K/uL (0.01-0.20); Immature Granulocytes % (auto) 0.5 %; Lymphocytes # (auto) 3.38 K/uL (1.2-3.4); Lymphocytes % (auto) 23.1 %; Mean Corpuscular Hemoglobin 30.8 pg (25.0-34.0); Mean Corpuscular Hgb Conc 35.4 g/dL (32.0-36.0); Mean Platelet Volume 9.6 fL (9.4-12.4); Monocytes # (auto) 1.56 K/uL (0.11-0.59); Monocytes % (auto) 10.7 %; Neutrophils # (auto) 9.54 K/uL (1.40-6.50); Neutrophils % (auto) 65.2 %; Platelet Count 231 K/uL (130-400); RDW Coefficient of Variation 12.6 % (11.5-14.5); RDW Standard Deviation 40.3 fL (36.4-46.3); Red Blood Count 4.38 M/uL (4.20-5.40); White Blood Count 14.63 K/ul (4.8-10.8)
[2023-01-30] MEDS: INSULIN ASPART PER UNIT CHARGE SC SCH ×4 (08:32→20:13)
[2023-01-30] MEDS: CHOLECALCIFEROL 1,000 UNITS 25 MCG TAB PO SCH (08:33)
[2023-01-30] MEDS: ROSUVASTATIN CALCIUM 10 MG TAB PO SCH (08:33)
[2023-01-30] MEDS: HEPARIN SOD 5,000 UNIT/0.5 ML VIAL SQ SCH ×2 (08:33→20:11)
[2023-01-30] MEDS: ASPIRIN 81 MG ECTAB PO SCH (08:33)
[2023-01-30] MEDS: NSS + 20MEQ KCL 20 MEQ/1,000 ML BAG IV SCH ×2 (08:36→17:04)
[2023-01-30 09:01] LABS: Estimated Average Glucose 140 mg/dl; Hemoglobin A1C 6.5 % (4.5-5.6)
[2023-01-30] MEDS ORDERED: PHARMACY GLYCEMIC MGMT CONSULT PRN (11:17)
[2023-01-30] MEDS ORDERED: LANTUS PER UNIT CHARGE SC ONE (11:30)
--- NOTE | 2023-01-30 11:35 | Pharmacy Report ---
Pharmacy Glycemic Short Note 2 - Date of Service January 30, 2023 - Glycemic Short BSG Results (Last 24 hours): 01/29/23 01/29/23 01/29/23 18:48 18:52 21:26 Glucose 424 H* POC Glucose 344 H* POC Glucose (other) 419 H* 01/29/23 01/30/23 01/30/23 22:51 06:03 07:15 Glucose 126 H POC Glucose 332 H* 113 H POC Glucose (other) 01/30/23 11:03 Glucose POC Glucose 182 H POC Glucose (other) OUTPATIENT ANTIDIABETIC REGIMEN: * Levemir 11 units SQ BID * Novolog 8 units TIDM HbA1C: 6.5% ASSESSMENT: * Patient is a 62 year old female with a history of DM1 admitted with hy perglycemia after running out of Novolog. Pharmacy consulted to assist with glycemic management inpatient. * Received 10 units of Lantus last night, 7 unit IV bolus, and 10 units of SQ Novolog. BSG 344 upon presentation, 113mg/dL fasting BSG this AM. * Will begin Lantus 8 units BID (~70% of home basal) based upon total daily outpatient insulin dose (outpatient dosing obtained from October endocrine o ffice note). Novolog moderate stress scale for now- may need to loosen pending BSG trend. PLAN FOR INPATIENT GLYCEMIC CONTROL: * Hold outpatient oral diabetes medications * Basal insulin * Lantus 8 units SQ BID * Bolus insulin * NovoLog per scale ACHS or Q6hrs while NPO * Goal Range: Low 110 mg/dL - High 140 mg/dL * Correction Factor: 30 mg/dL/unit * Nutritional / Prandial insulin per carb ratio of 1 unit per 10 grams CHO consumed
[2023-01-30 12:23] LABS: Appearance Urine Clear (Clear); Bacteria Urine Automated Negative (Negative); Bilirubin Urine Negative (Negative); Blood Urine Negative (Negative); Cast Urine Automated 0 /lpf (0-5); Color Urine Yellow; Glucose Urine UA 3+ (Negative); Ketones Urine 1+ (Negative); Leukocyte Esterase Urine 1+ (Negative); Nitrite Urine Negative (Negative); Protein Urine Negative (Negative); RBC Urine Automated 0-4 /hpf (0-4); Specific Gravity Urine 1.019 (1.000-1.030); Urobilinogen Urine Negative (Negative); pH Urine 5.5 (4.5-7.5)
--- NOTE | 2023-01-30 16:55 | XCELERA ---
[id number] \\[id number]
[2023-01-30 18:15] LABS: C Reactive Protein 0.75 mg/dl (0-0.5)
[2023-01-30 18:23] LABS: Troponin I High Sensitivity 59.5 pg/ml (0-14)
[2023-01-30 18:32] LABS: Thyroid Stimulating Hormone 0.525 uIu/ml (0.300-4.500)
[2023-01-30 18:34] LABS: T4 Free Thyroxine 1.09 ng/dl (0.61-1.60)
[2023-01-30] MEDS ORDERED: LANTUS PER UNIT CHARGE SC SCH (21:00)
--- NOTE | 2023-01-30 22:13 | Hospitalist Progress Note ---
Date of Service January 30, 2023 Assessment & Plan (1) Hyperglycemia due to type 1 diabetes mellitus: Plan: Type 1 diabetes mellituswith HHS 62-year-old female with a known history of type 1 diabetes who presents with hyperglycemia, nausea, and vomiting after missing doses of Humalog As above. Sodium 134, anion gap 15, BUN 42, creatinine 1.22, [id number] presenting serum glucose 119, high-sensitivity troponins 108.6, 144.9, Risk Factor(s): Age, type 1 diabetes, missed doses of Humalog Treatment: IV NS bolus, then primary 20 of K, IV push insulin, Lantus, sliding scale insulin coverage Hyperglycemia due to diabetes mellitus type 1- Patient ran out of her Humalog yesterday morning, missed 3 successive doses, developed nausea and vomiting, with glucose in the 400s, and was referred to the ED by endocrinology. Glucose was 424 in the ED, received 7 units of regular insulin IV from the ED, with improvement in glucose to 332. Patient reports that she usually takes Levemir 11 units 3 times daily and NovoLog 8 units 3 times daily together. However, patient does report recent change in October from Levemir 25 units in the morning to 11 units subcu twice daily. Patient will get formulary interchange to glargine 10 units subcu this evening, along with 10 units NovoLog, will continue with coverage overnight, and dosing will need to be verified in the morning with her web press operator. No signs of infection. Patient had received normal saline 500 mL from the ED We will place on NSS + KCl 20 mEq at 125 MLS per hour, and follow serial BMP and magnesium levels Blood sugars appear better controlled until now. Elevated troponin/hypertension/history lower extremity edema- The patient will be admitted to telemetry for serial cardiac enzymes, serial EKG's, cardiac rhythm monitoring and a 2-D echocardiogram with Dopplers. 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 Review of Systems Review of Systems: All systems reviewed & are unremarkable except as noted in HPI & below Physical Exam Physical Exam: The patient is awake, alert and oriented 3, well developed and well nourished, normocephalic and atraumatic, lying in bed and in no acute distress. HEENT--PERRL, EOMI, mucous membranes and oropharynx mildly dry. Neck--supple. No JVD. No bruits. Thyroid normal, trachea midline, no adenopathy. Heart--normal S1 and S2. No murmurs, rubs or gallops. Lungs--clear bilaterally, no respiratory distress, no accessory muscle use. Abdomen--normal bowel sounds and soft. Nontender. Nondistended, no hernias or masses, no organomegaly. Extremities--no cyanosis or clubbing. No edema. Dermatologic--normal skin turgor, normal color, no abnormal lymph nodes, no laura h. Neurologic--cranial nerves II through XII grossly intact. Rheumatologic--normal range of motion. Psychiatric--normal affect. Results & Data Results & Data Vital Signs (Past 12 Hours) Vital Signs Temp Pulse Pulse Resp BP Pulse Ox O2 Del Method 01/30/23 19:14 36.8 C 82 19 95/71 L 99 Room Air 01/30/23 15:53 36.4 C L 75 18 97/61 L 97 Room Air 01/30/23 15:24 78 01/30/23 11:06 36.7 C 82 18 91/55 L 97 Room Air PG Care Time/CCT Total # of Minutes Spent Total Time Spent with Patient: Total time spent is greater than 50% in coordination of care (as documented) at patient's floor/unit and/or counseling patient: Coding Level of Care Code 09962 SUB INP/OBS CARE 2/35MIN Diagnoses Hyperglycemia due to type 1 diabetes mellitus E10.65 Elevated troponin R77.8 Nausea & vomiting R11.2 Dyslipidemia E78.5 Hypothyroidism E03.9 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
[2023-01-31] MEDS: NSS + 20MEQ KCL 20 MEQ/1,000 ML BAG IV SCH ×2 (00:37→08:19)
--- NOTE | 2023-01-31 06:08 | Electrocardiogram Report ---
Test Reason : Blood Pressure : / mmHG Vent. Rate : 093 BPM Atrial Rate : 093 BPM P-R Int : 168 ms QRS Dur : 094 ms QT Int : 368 ms P-R-T Axes : 049 -04 066 degrees QTc Int : 457 ms Normal sinus rhythm Normal ECG When compared with ECG of 14-SEP-2004 16:21, No significant change was found Confirmed by Calos Stephen ([id number]) on 01/31/2023 6:08:31 AM Referred By: REFERRED SELF Confirmed By:Calos Stephen
[2023-01-31] MEDS: LEVOTHYROXINE SODIUM 112 MCG TABLET PO SCH (06:22)
[2023-01-31 06:54] LABS: Albumin Globulin Ratio 1.4 (0.9-2); Albumin Level 3.1 gm/dl (3.4-5.0); BUN Creatinine Ratio 25.7 (10-20); Bilirubin,Total 0.5 mg/dl (0.2-1.0); Calcium 8.5 mg/dl (8.6-10.3); Creatinine Clr Calc Pharmacy 85.9 ml/min; Est GFR (African American) 107.6 ml/min; Est GFR (Non-African American) 92.9 ml/min; Globulin 2.2 gm/dl (2.5-4.0); Magnesium 1.8 mg/dl (1.7-2.4); Potassium 4.1 mmol/L (3.5-5.1); Total Protein 5.3 gm/dl (6.0-8.3)
[2023-01-31 07:33] LABS: Basophils # (auto) 0.05 K/uL (0-0.2); Basophils % (auto) 0.7 %; Eosinophils # (auto) 0.05 K/uL (0-0.50); Eosinophils % (auto) 0.7 %; Hematocrit (blood only) 32.7 % (37.0-47.0); Hemoglobin 11.7 g/dl (12.0-16.0); Immature Granulocytes # (auto) 0.02 K/uL (0.01-0.20); Immature Granulocytes % (auto) 0.3 %; Lymphocytes # (auto) 2.72 K/uL (1.2-3.4); Lymphocytes % (auto) 38.7 %; Mean Corpuscular Hemoglobin 31.6 pg (25.0-34.0); Mean Corpuscular Hgb Conc 35.8 g/dL (32.0-36.0); Mean Corpuscular Volume 88.4 fL (80.0-100.0); Mean Platelet Volume 9.8 fL (9.4-12.4); Monocytes # (auto) 0.67 K/uL (0.11-0.59); Monocytes % (auto) 9.5 %; Neutrophils # (auto) 3.52 K/uL (1.40-6.50); Neutrophils % (auto) 50.1 %; Platelet Count 162 K/uL (130-400); RDW Coefficient of Variation 13.1 % (11.5-14.5); RDW Standard Deviation 42.6 fL (36.4-46.3); White Blood Count 7.03 K/ul (4.8-10.8)
[2023-01-31] MEDS: ASPIRIN 81 MG ECTAB PO SCH (08:16)
[2023-01-31] MEDS: ROSUVASTATIN CALCIUM 10 MG TAB PO SCH (08:17)
[2023-01-31] MEDS: HEPARIN SOD 5,000 UNIT/0.5 ML VIAL SQ SCH (08:17)
[2023-01-31] MEDS: CHOLECALCIFEROL 1,000 UNITS 25 MCG TAB PO SCH (08:17)
[2023-01-31] MEDS: INSULIN ASPART PER UNIT CHARGE SC SCH ×3 (08:26→16:35)
[2023-01-31] MEDS ORDERED: LANTUS PER UNIT CHARGE SC SCH (09:00)
--- NOTE | 2023-01-31 11:55 | Pharmacy Report ---
Pharmacy Glycemic Short Note 2 - Date of Service January 31, 2023 - Glycemic Short BSG Results (Last 24 hours): 01/30/23 01/30/23 01/31/23 16:13 19:56 05:50 Glucose 179 H POC Glucose 172 H 181 H 01/31/23 01/31/23 07:28 11:32 Glucose POC Glucose 197 H 210 H OUTPATIENT ANTIDIABETIC REGIMEN: * Levemir 11 units SQ BID * Novolog 8 units TIDM HbA1C: 6.5% ASSESSMENT: 02/01: * BSGs above goal- [phone]/dL the last 24h. Pt received 16 units of basal and 20 units of bolus insulin yesterday. * Other stressors stable * Basal increased by ~ 15% today given elevated fasting. Novolog parameters tightened to 25/8 at lunch given elevated prandial BSGs. 01/31: * Patient is a 62 year old female with a history of DM1 admitted with hyperglycemia after running out of Novolog. Pharmacy consulted to assist with glycemic management inpatient. * Received 10 units of Lantus last night, 7 unit IV bolus, and 10 units of SQ Novolog. BSG 344 upon presentation, 113mg/dL fasting BSG this AM. * Will begin Lantus 8 units BID (~70% of home basal) based upon total daily outpatient insulin dose (outpatient dosing obtained from October endocrine office note). Novolog moderate stress scale for now- may need to loosen pending BSG trend. PLAN FOR INPATIENT GLYCEMIC CONTROL: * Hold outpatient oral diabetes medications * Basal insulin * Lantus 10 units SQ BID * Bolus insulin * NovoLog per scale ACHS or Q6hrs while NPO * Goal Range: Low 110 mg/dL - High 140 mg/dL * Correction Factor: 25 mg/dL/unit * Nutritional / Prandial insulin per carb ratio of 1 unit per 8 grams CHO consumed
--- NOTE | 2023-01-31 23:09 | Electrocardiogram Report ---
Test Reason : Blood Pressure : / mmHG Vent. Rate : 083 BPM Atrial Rate : 083 BPM P-R Int : 168 ms QRS Dur : 098 ms QT Int : 406 ms P-R-T Axes : 054 -14 041 degrees QTc Int : 477 ms Normal sinus rhythm Normal ECG When compared with ECG of 29-JAN-2023 18:59, No significant change was found Confirmed by Calos Stephen ([id number]) on 01/31/2023 11:09:12 PM Referred By: REFERRED SELF Confirmed By:Calos Stephen
--- NOTE | 2023-02-02 05:25 | Electrocardiogram Report ---
Test Reason : Blood Pressure : / mmHG Vent. Rate : 075 BPM Atrial Rate : 075 BPM P-R Int : 174 ms QRS Dur : 090 ms QT Int : 404 ms P-R-T Axes : 063 -32 057 degrees QTc Int : 451 ms Normal sinus rhythm Left axis deviation Abnormal ECG When compared with ECG of 30-JAN-2023 06:47, No significant change was found Confirmed by Calos Stephen ([id number]) on 02/02/2023 5:25:33 AM Referred By: REFERRED SELF Confirmed By:Calos Stephen
--- NOTE | 2023-02-06 14:36 | Discharge Summary ---
Date of Service January 31, 2023 Admission HPI Per Admitting Provider The patient is a 62-year-old female with a past medical history including diabetes mellitus type 1, diabetic peripheral neuropathy, dyslipidemia and hypothyroidism. She ran out of her NovoLog after her last dose yesterday morning, and missed 3 successive doses since that time. She developed nausea and vomiting this morning, tried to take a dose early this afternoon, along with her Levemir, blood sugars continue to remain in the 400s, so patient was advised to come to the ED by her conveyor feeder. Blood sugar was 424 in the ED, and improved to 300 7:20 units of regular insulin IV from the ED Patient was also found to have elevated troponin to 108.6, but had no symptoms of chest pain, shortness of breath or any other cardiac symptoms. Principal Diagnosis Type 1 DM due to hyperglycemia Discharge Exam The patient is awake, alert and oriented 3, well developed and well nourished, normocephalic and atraumatic, lying in bed and in no acute distress. HEENT--PERRL, EOMI, mucous membranes and oropharynx mildly dry. Neck--supple. No JVD. No bruits. Thyroid normal, trachea midline, no adenopathy. Heart--normal S1 and S2. No murmurs, rubs or gallops. Lungs--clear bilaterally, no respiratory distress, no accessory muscle use. Abdomen--normal bowel sounds and soft. Nontender. Nondistended, no hernias or ma sses, no organomegaly. Extremities--no cyanosis or clubbing. No edema. Dermatologic--normal skin turgor, normal color, no abnormal lymph nodes, no rash. Neurologic--cranial nerves II through XII grossly intact. Rheumatologic--normal range of motion. Psychiatric--normal affect. Discharge Data Allergies Allergy/AdvReac Type Severity Reaction Status Date / Time tetanus toxoid, adsorbed AdvReac Intermediate SWELLING Verified 02/02/23 16:18 AT SITE AND REDNESS Consultations 01/29/23 20:04 ED Decision to Admit Stat Hospital Course (1) Hyperglycemia due to type 1 diabetes mellitus: Type 1 diabetes mellituswith [facility] 62-year-old female with a known history of type 1 diabetes who presents with hyperglycemia, nausea, and vomiting after missing doses of Humalog As above. Sodium 134, anion gap 15, BUN 42, creatinine 1.22, djtaf-ko-ople presenting serum glucose 119, high-sensitivity troponins 108.6, 144.9, Risk Factor(s): Age, type 1 diabetes, missed doses of Humalog Treatment: IV NS bolus, then primary 20 of K, IV push insulin, Lantus, sliding scale insulin coverage Hyperglycemia due to diabetes mellitus type 1- Patient ran out of her Humalog yesterday morning, missed 3 successive doses, developed nausea and vomiting, with glucose in the 400s, and was referred to the ED by endocrinology. Glucose was 424 in the ED, received 7 units of regular insulin IV from the ED, with improvement in glucose to 332. Patient reports that she usually takes Levemir 11 units 3 times daily and NovoLog 8 units 3 times daily together. However, patient does report recent change in October from Levemir 25 units in the morning to 11 units subcu twice daily. Patient will get formulary interchange to glargine 10 units subcu this evening, along with 10 units NovoLog, will continue with coverage overnight No signs of infection. Blood sugars appear better controlled. Endocrinilogy recommends to resume home dose. Elevated troponin/hypertension/history lower extremity edema- The patient will be admitted to telemetry for serial cardiac enzymes, serial EKG's, cardiac rhythm monitoring and a 2-D echocardiogram with Dopplers. 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 WIll recommend holding your lasix for now given your dehydration. WIll defer resuming to your PCP. Will also recommend followup with Cardiology. May benefit from lisinopril. Pending Studies at Discharge: No Stand-Alone Forms: My [facility], Smoking Cessation Medications and DC Order Prescriptions: Continued levothyroxine 112 mcg tablet 112 mcg PO DAILY Qty: 30 5RF insulin aspart U-100 [Novolog U-100 Insulin aspart] 100 unit/mL solution 8 unit subcut TID Qty: 7.2 3RF rosuvastatin [Crestor] 10 mg tablet 10 mg PO DAILY Qty: 30 3RF Rx Instructions: Take one tablet by mouth once daily. (DME) blood-glucose meter [OneTouch Ultra2 Meter] Misc See Rx Instructions .Route Rx Instructions: As directed (DME) OneTouch Ultra Test Strip See Rx Instructions .Route Rx Instructions: As directed (DME) Dexcom G6 [place] Chopper Misc See Rx Instructions .Route Rx Instructions: As directed (DME) Dexcom G6 Transmitter Device See Rx Instructions .Route Rx Instructions: As directed (DME) Dexcom G6 Sensor Device See Rx Instructions .Route Rx Instructions: As directed aspirin [Adult Low Dose Aspirin] 81 mg tablet,delayed release (DR/EC) 81 mg PO DAILY Rx Instructions: PER PT "NOT ON A REGULAR BASIS" liver detox 1 dose PO DAILY Rx Instructions: PER PT "NOT ON A REGULAR BASIS" cholecalciferol (vitamin D3) 25 mcg (1,000 unit) tablet,chewable 25 mcg PO DAILY Rx Instructions: PER PT "NOT ON A REGULAR BASIS" Levemir FlexPen 100 unit/mL (3 mL) insulin pen 11 unit SUBCUT BID Discontinued furosemide 40 mg tablet 40 mg PO DAILY Discharge Orders: Discharge Order (Routine); Ordered 01/31/23 Ordered By: Albert Rob Admission Data Admit Date/Time: 01/29/23 21:21 Attending Provider: Albert Rob Admit Provider: Huber Gayle Primary Care Provider: Rito Berrios Other Providers: Huber Gayle Other Interventions: Discharge Summary Assessment (RN) Last Done: 01/31/23 16:57 Coding Level of Care Code 80865 INP/OBS DISCH >30 MIN Diagnoses Hyperglycemia due to type 1 diabetes mellitus E10.65 Elevated troponin R77.8 Nausea & vomiting R11.2 Dyslipidemia E78.5 Hypothyroidism E03.9 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
== END 2023-01-31 18:00 | disposition home or self-care (01) | DRG 638 ==
LOC: ED 18:32 → SUATTDRO 21:21 → 2E 21:21

== ENCOUNTER 2023-04-25 14:24 | Inpatient (IN) ==
[2023-04-25 16:11] LABS: Basophils # (auto) 0.07 K/uL (0.00-0.20); Basophils % (auto) 0.6 %; Eosinophils # (auto) 0.13 K/uL (0.00-0.50); Eosinophils % (auto) 1.2 %; Hematocrit (blood only) 37.6 % (37.0-47.0); Hemoglobin 12.9 g/dl (12.0-16.0); Immature Granulocytes # (auto) 0.04 K/uL (0.01-0.20); Immature Granulocytes % (auto) 0.4 %; Lymphocytes # (auto) 1.96 K/uL (1.20-3.40); Lymphocytes % (auto) 17.4 %; Mean Corpuscular Hgb Conc 34.3 g/dL (32.0-36.0); Mean Corpuscular Volume 90.4 fL (80.0-100.0); Mean Platelet Volume 9.7 fL (9.4-12.4); Monocytes # (auto) 1.14 K/uL (0.11-0.59); Monocytes % (auto) 10.1 %; Neutrophils # (auto) 7.92 K/uL (1.40-6.50); Neutrophils % (auto) 70.3 %; Platelet Count 220 K/uL (130-400); RDW Coefficient of Variation 11.9 % (11.5-14.5); RDW Standard Deviation 39.2 fL (36.4-46.3); Red Blood Count 4.16 M/uL (4.20-5.40); White Blood Count 11.26 K/ul (4.8-10.8)
[2023-04-25 16:32] LABS: Alanine Aminotransferase 6 U/L (7-52); Albumin Globulin Ratio 1.2 (0.9-2); Alkaline Phosphatase 69 U/L (34-104); Anion Gap 7 (3-11); BUN Creatinine Ratio 17.6 (10-20); Bilirubin,Total 0.5 mg/dl (0.2-1.0); Blood Urea Nitrogen 15 mg/dl (6-23); Calcium 9.6 mg/dl (8.6-10.3); Carbon Dioxide 30 mmol/L (21-32); Chloride 99 mmol/L (98-107); Creatinine Clr Calc Pharmacy 68.9 ml/min; Est GFR (African American) 85.1 ml/min; Est GFR (Non-African American) 73.4 ml/min; Globulin 3.4 gm/dl (2.5-4.0); Glucose 268 mg/dl (70-99(Fasting)); Sodium 136 mmol/L (136-145); Total Protein 7.4 gm/dl (6.0-8.3)
--- NOTE | 2023-04-25 16:33 | Ultrasound Report ---
ULTRASOUND RIGHT LOWER EXTREMITY VENOUS CLINICAL HISTORY: Right calf pain. COMPARISON STUDY: No priors. TECHNIQUE: Real-time, grayscale, and color Doppler sonography of the deep veins of the right lower ex tremity was performed from the inguinal crease to the calf. Compression and augmentation were utilize d. FINDINGS: There is no sonographic evidence of deep venous thrombosis identified in the right lower ex tremity. The common femoral, superficial femoral, and popliteal veins are patent and normally fabiana sible. The greater saphenous vein and the profunda femoris vein at the junction with the common femor al vein are clear. The visualized calf veins are patent. Prominent right inguinal lymph nodes are not ed. IMPRESSION: 1. There is no sonographic evidence of deep venous thrombosis identified in the right lower extremity . 2. Prominent right inguinal lymph nodes are likely reactive. Correlate clinically. ACT 112: Negative or not required by law. Electronically signed by: Andrey Loaiza M.D. 04/25/2023 4:31 PM
[2023-04-25] MEDS ORDERED: VANCOMYCIN CONSULT ACTIVE PRN ×2 (18:53→23:23)
[2023-04-25] MEDS ORDERED: VANCOMYCIN HCL 1,500 MG in SODIUM CHLORIDE 0.9% 500 ML IV ONE (18:53)
[2023-04-25] MEDS ORDERED: PIPERACILLIN/TAZOBACTAM 4.5 GM/120 ML BAG IV ONE (18:53)
--- NOTE | 2023-04-25 18:56 | Emergency Department Note ---
History of Present Illness General Chief complaint: Leg Injury/Pain Stated complaint: R LEG SWOLLEN Time Seen by Provider: 04/25/23 18:45 History of Present Illness 62-year-old female with a history of diabetes presents with a 2-week history of right leg swelling specifically in the right great toe and now into the right calf with tenderness with a prior history of DVTs. Patient states that she was trying to clip her toenail and may have cut herself and now it the right great toe has increased in size with area of discharge present and redness. Patient was concerned due to history of DVTs and history of infection. Patient denies fever chills rigors denies cough cold congestion. There are no other mitigating or alleviating factors Home Medications Medication Instructions Recorded Confirmed Type [facility] 04[facility]/23 History Ultra Test strips) [facility] 04/25/23 History Ultra2 Meter) blood-glucose transmitter ([employer] 09/04/22 04/25/23 History G6 Transmitter device) blood-glucose meter,continuous #1 ea 02/26/23 04/25/23 Rx (Dexcom G7 Station Supervisor) insulin detemir U-100 100 unit/mL 11 unit (0.11 mL) subcut BID #30 mL 02/26/23 04/25/23 Rx (3 mL) subcutaneous pen (Levemir FlexPen) pen needle, diabetic 32 gauge x #100 ea 02/26/23 04/25/23 Rx 5/16" (Comfort EZ Pen [place]) blood-glucose sensor (Dexcom G7 #9 ea 02/28/23 04/25/23 Rx Sensor device) levothyroxine 112 mcg tablet 112 mcg PO DAILY #30 tabs 03/19/23 04/25/23 Rx rosuvastatin 10 mg tablet (Crestor) 10 mg PO DAILY #30 tabs 04/17/23 04/25/23 Rx furosemide 40 mg tablet (Lasix) 40 mg PO DAILY #60 tabs 04/19/23 04/25/23 Rx potassium chloride 10 mEq 10 meq PO DAILY #30 tabs 04/19/23 04/25/23 Rx tablet,extended release insulin aspart U-100 100 unit/mL 8 unit subcut TIDM 04/25/23 04/25/23 History subcutaneous solution (Novolog U-100 Insulin aspart) Allergies Allergy/AdvReac Type Severity Reaction Status Date / Time tetanus toxoid, adsorbed AdvReac Intermediate SWELLING Verified 02/26/23 15:42 AT SITE AND REDNESS Past Med/Surg History Medical History Diabetes Uterine cancer Surgical History H/O: hysterectomy Family History Mother Myocardial infarction Denies family history of Ovarian cancer Prostate cancer Breast cancer Colorectal cancer Social History Smoking Status: Never smoker Second Hand Exposure: No; Do You Dip or Chew Tobacco: No; Hx Alcohol Use: Yes Alcohol type: beer Alcohol Intake Frequency: Monthly or Less Hx Substance Use: No Preferred Language: Luxembourgish Communication Ability: Effective Visual Impairment: No Limitations Hearing Ability: Normal 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 Required: No Beliefs That Will Affect Care: None marital status: Single Current Living Situation: Family current occupational status: retired Feels Safe at Home: Yes Childhood Exposure to Second-Hand Smoke: Yes Diet: low carbohydrate caffeine: Yes during the past year weight has: remained stable Dental Care, Regularly: No Physical Activity Frequency: Daily Seatbelt Use: always Sunscreen Use: No Assistive Devices: Glasses Review of Systems A total of 10 systems reviewed and were otherwise negative Constitutional: no fever and no body aches Integumentary: + non-healing lesions and + skin ulcer Physical Exam Vital Signs Vital Signs - 24 hr 04/25/23 14:24 04/25/23 19:00 Temperature 36.6 C Temperature Source Temporal Artery Scan Pulse Rate 94 H Pulse Rate [Apical] 86 Respiratory Rate 16 16 Respiratory Effort / Characteristics Non-Labored Respiratory Depth Normal Respiratory Pattern Regular Blood Pressure 130/81 Blood Pressure [Left Arm] 99/62 L Blood Pressure Mean 97 Blood Pressure Mean [Left Arm] 74 Pulse Oximetry 95 99 Sepsis Recent Fever Within 48 Hours No Sepsis New/Unexplained Change in Mental Status No Sepsis Action Taken by Nursing No Action Required GENERAL: Patient is awake alert in no acute distress patient is resting comfo rtably and showing no signs of anxiety EYES: The conjunctivae are clear. The pupils are round and reactive. EARS, NOSE, MOUTH AND THROAT: The nose is without any evidence of any deformity. Mucous membranes are moist. Tongue is midline. NECK: The neck is nontender and supple. RESPIRATORY: Normal respiratory effort is noted there is no evidence of wheezing rhonchi or rales CARDIOVASCULAR: Regular rate and rhythm noted there no murmurs rubs or gallops normal S1 normal S2. GASTROINTESTINAL: The abdomen is soft. Abdomen is nontender. BACK: No midline tenderness or or step-off noted range of motion in flexion extension as well as rotation no signs of muscle spasm noted MUSCULOSKELETAL/EXTREMITIES: There is no evidence of gross deformity full range of motion is noted in the hips and shoulders. SKIN: Right lower extremity with erythema and edema as well as an obvious ulcerative lesion that is purulent to the right great toe with redness surrounding it there is no crepitance NEUROLOGIC: Patient is awake alert and oriented x3 strength is symmetric Course Reevaluation(s) Reevaluation #1: Patient was started on IV Zosyn and vancomycin. Patient will be admitted to the hospital for further evaluation and treatment Time: 19:39 Consultations Consultation #1: Case was discussed with the [facility] hospitalist for admission Time: 19:39 Administered Medications Discontinued Medications Piperacillin Sod/Tazobactam Sod (Zosyn) 4.5 gm in 120 mls @ 240 mls/hr IV NOW ONE Stop: 04/25/23 19:22 Last Admin: 04/25/23 19:21 Dose: 240 mls/hr Documented By: CLIFFORD Medical Decision Making Medical Records Attestation: I reviewed the patient's medical records. Home Medications Current Medication List: was personally reviewed by me Laboratory Data Attestation: I reviewed the patient's lab results. Lab work interpreted by me mild elevation in white blood cell count, mild hyperglycemia 04/25/23 15:50 04/25/23 15:50 Lab Results 04/25/23 04/25/23 04/25/23 Range/Units 15:50 15:50 19:13 WBC 11.26 H (4.8-10.8) K/ul RBC 4.16 L (4.20-5.40) M/uL Hgb 12.9 (12.0-16.0) g/dl Hct 37.6 (37.0-47.0) % MCV 90.4 (80.0-100.0) fL MCH 31.0 (25.0-34.0) pg MCHC 34.3 (32.0-36.0) g/dL RDW Std Deviation 39.2 (36.4-46.3) fL RDW Coeff of Tressa 11.9 (11.5-14.5) % Plt Count 220 (130-400) K/uL MPV 9.7 (9.4-12.4) fL Immature Gran % (Auto) 0.4 % Neut % (Auto) 70.3 % Lymph % (Auto) 17.4 % [place] % (Auto) 10.1 % Eos % (Auto) 1.2 % Baso % (Auto) 0.6 % Neut # (Auto) 7.92 H (1.40-6.50) K/uL Lymph # (Auto) 1.96 (1.20-3.40) K/uL [place] # (Auto) 1.14 H (0.11-0.59) K/uL Eos # (Auto) 0.13 (0.00-0.50) K/uL Baso # (Auto) 0.07 (0.00-0.20) K/uL Immature Gran # (Auto) 0.04 (0.01-0.20) K/uL Sodium 136 (136-145) mmol/L Potassium TNP Chloride 99 (98-107) mmol/L Carbon Dioxide 30 (21-32) mmol/L Anion Gap 7 (3-11) BUN 15 (6-23) mg/dl Creatinine 0.85 (0.6-1.2) mg/dl Est Cr Clr Drug Dosing 68.9 ml/min Est GFR ( Amer) 85.1 ml/min Est GFR (Non-Af Amer) 73.4 ml/min BUN/Creatinine Ratio 17.6 (10-20) Glucose 268 H (70-99(Fasting)) mg/dl Lactate 1.0 (0.4-2.0) mmol/L Calcium 9.6 (8.6-10.3) mg/dl Total Bilirubin 0.5 (0.2-1.0) mg/dl AST TNP ALT 6 L (7-52) U/L Alkaline Phosphatase 69 (34-104) U/L Total Protein 7.4 (6.0-8.3) gm/dl Albumin 4.0 (3.4-5.0) gm/dl Globulin 3.4 (2.5-4.0) gm/dl Albumin/Globulin Ratio 1.2 (0.9-2) Imaging Data Attestation: I personally reviewed and interpreted this imaging study as follows: My Impression: X-ray of the right foot the distal tuft area is irregular there is no significant soft tissue swelling questionable osteo changes as interpreted by me Radiologist's Impression: Venous Doppler Study 04/25/23 14:33 ULTRASOUND RIGHT LOWER EXTREMITY VENOUS CLINICAL HISTORY: Right calf pain. COMPARISON STUDY: No priors. TECHNIQUE: Real-time, grayscale, and color Doppler sonography of the deep veins of the right lower extremity was performed from the inguinal crease to the calf. Compression and augmentation were utilized. FINDINGS: There is no sonographic evidence of deep venous thrombosis identified in the right lower extremity. The common femoral, superficial femoral, and popliteal veins are patent and normally compressible. The greater saphenous vein and the profunda femoris vein at the junction with the common femoral vein are clear. The visualized calf veins are patent. Prominent right inguinal lymph nodes are noted. IMPRESSION: 1. There is no sonographic evidence of deep venous thrombosis identified in the right lower extremity. 2. Prominent right inguinal lymph nodes are likely reactive. Correlate clinically. ACT 112: Negative or not required by law. Electronically signed by: Andrey Loaiza M.D. 04/25/2023 4:31 PM Foot X-Ray 04/25/23 18:52 XR foot RT min 3V routine CLINICAL HISTORY: Right first toe wound and swelling. COMPARISON: None FINDINGS: Alignment of the right foot is anatomic. Tarsometatarsal joints are intact. Note is made of right first toe soft tissue swelling. Irregularity of the distal right first toe suggests a wound. Note is made of osteolysis of the lateral aspect of the distal tuft of the distal phalanx of the right first toe. No additional sites of bony erosion are identified within the right foot. Flattening of the right second metatarsal head is chronic. Plantar calcaneal spur is noted. IMPRESSION: Findings highly suggestive of acute osteomyelitis of the distal tuft of the distal phalanx of the right first toe. ACT 112: Negative or not required by law. Electronically signed by: Navjot Live M.D. 04/25/2023 7:16 PM MDM Narrative Medical decision making differential diagnosis includes diabetic foot ulcer, cellulitis, foot infection, osteomyelitis, DVT, hyperglycemia Plan is to check labs, ultrasound which was ordered in the provider in triage process and I have added foot x-ray as well as blood cultures and lactic acid. Patient was also ordered IV Zosyn and vancomycin at 1900 hrs. Prior medical records were reviewed by me Patient will be admitted for further treatment of a diabetic foot infection Impression & Plan Diabetic infection of right foot Discharge Plan Visit Data Chief Complaint: Leg Injury/Pain Stated Complaint: R LEG SWOLLEN ED Provider: Shade Alcaraz Discharge Problem: Diabetic infection of right foot Patient Disposition: Admitted As Inpatient Forms Stand Alone Forms: My [facility] Prescriptions Prescriptions: No Action (DME) pen needle, diabetic [Comfort EZ Pen [place]] 32 gauge x 5/16" needle See Rx Instructions .Route Qty: 100 5RF Rx Instructions: Use 2 per day (DME) Dexcom G7 Sensor Device See Rx Instructions .ROUTE .MEDSUPPLY Qty: 9 3RF Rx Instructions: change every 10 days levothyroxine 112 mcg tablet 112 mcg PO DAILY Qty: 30 5RF rosuvastatin [Crestor] 10 mg tablet 10 mg PO DAILY Qty: 30 3RF Rx Instructions: Take one tablet by mouth once daily. potassium chloride 10 mEq tablet extended release 10 meq PO DAILY Qty: 30 2RF furosemide [Lasix] 40 mg tablet 40 mg PO DAILY Qty: 60 5RF Rx Instructions: Take one tablet by mouth once daily may take an additional 40mg if edema persists after 8-12 hours. (DME) blood-glucose meter [OneTouch Ultra2 Meter] Misc See Rx Instructions .Route Rx Instructions: As directed (DME) OneTouch Ultra Test Strip See Rx Instructions .Route Rx Instructions: As directed (DME) Dexcom G6 Transmitter Device See Rx Instructions .Route Rx Instructions: As directed Levemir FlexPen 100 unit/mL (3 mL) insulin pen 11 unit SUBCUT BID Qty: 30 3RF Rx Instructions: Inject 11 units into the abdomen twice daily. (DME) Dexcom G7 Station Supervisor Misc See Rx Instructions .ROUTE .MEDSUPPLY Qty: 1 5RF Rx Instructions: As directed insulin aspart U-100 [Novolog U-100 Insulin aspart] 100 unit/mL solution 8 unit subcut TIDM Rx Instructions: Use 8 units with meals. Referrals Referrals: Radha Briseno CRNP [Primary Care Provider] -
--- NOTE | 2023-04-25 19:17 | XRay Report ---
XR foot RT min 3V routine CLINICAL HISTORY: Right first toe wound and swelling. COMPARISON: None FINDINGS: Alignment of the right foot is anatomic. Tarsometatarsal joints are intact. Note is made o f right first toe soft tissue swelling. Irregularity of the distal right first toe suggests a wound. Note is made of osteolysis of the lateral aspect of the distal tuft of the distal phalanx of the righ t first toe. No additional sites of bony erosion are identified within the right foot. Flattening of the right second metatarsal head is chronic. Plantar calcaneal spur is noted. IMPRESSION: Findings highly suggestive of acute osteomyelitis of the distal tuft of the distal phalan x of the right first toe. ACT 112: Negative or not required by law. Electronically signed by: Navjot Live M.D. 04/25/2023 7:16 PM
[2023-04-25 19:51] LABS: Potassium 3.3 mmol/L (3.5-5.1)
[2023-04-25 20:17] LABS: Prothrombin Time 10.6 Seconds (9.0-12.0)
--- NOTE | 2023-04-25 20:21 | History & Physical Report ---
Date of Service April 25, 2023 Assessment & Plan (1) Diabetic foot ulcer with osteomyelitis: Plan: -Diabetic patient with toe wound and progressive LE pain, associated leukocytosis + XR findings suggestive of osteomyelitis -Lactate negative, currently hemodynamically stable, not meeting SIRS criteria on admission -Continue vancomycin, Zosyn -BCx, wound Cx pending -MRI R foot and ankle ordered -Podiatry consulted -Trend CBC, ordered ESR and CRP for AM -MRSA nares pending (2) Hypokalemia: Plan: -K 3.3 on admission -Repleting with oral K -Trend BMP (3) Lower extremity edema: Plan: -Suspect chronic venous stasis with some exacerbation from acute soft tissue infection of R foot -Holding home furosemide given borderline-low BP 100/60 (4) Hyperglycemia due to type 1 diabetes mellitus: Plan: -02/2023 A1C 6.5% -Patient with very labile BSG over last 12 hours, have asked glycemic management to assist given NPO, infection, labile sugars (5) Dyslipidemia: Plan: -Continue rosuvastatin (6) Hypothyroidism: Plan: -Continue levothyroxine Plan FENGI: DM1 Code status: Full DVT prophylaxis: Lovenox 40 mg daily Isolation: None Disposition: Medical/surgical History of Present Illness Chief Complaint: Foot pain Primary Care Provider: KWAKU Garcia Pt is 62 yo F with PMH T1DM with peripheral neuropathy, HLD, hypothyroidism, questionable history of DVTs presenting with foot pain. Pt reports 2 weeks prior she cut her R first toenail and entire nail was accidentally removed. She did have bleeding immediately afterward but cleaned the wound with peroxide and applied triple antibiotic cream. She has had progressive RLE pain spanning from R great toe to dorsum to medial aspect of leg up to mid-cheek, with associated erythema + warmth + swelling of R great toe and up to posterior R calf. Toe wound has had purulent discharge as well. She denies fever, chills, fatigue. Able to ambulate albeit with moderate-severe pain. Symptoms progressed until she came to ER today. Pt arrived to ER hemodynamically stable. Initial evaluation significant for WBC 11.3, K 3.3, glucose 268. CBC, CMP, lactate otherwise negative. Negative venous Doppler. XR R foot suggestive of acute osteomyelitis of the distal tuft of the distal phalanx of R great toe. ER interventions include vancomycin and Zosyn. At present, pt reports no foot pain at rest but moderate 7/10 pain when moving the extremity or pressing on it. She denies any new complaints. Allergies Allergy/AdvReac Type Severity Reaction Status Date / Time tetanus toxoid, adsorbed AdvReac Intermediate SWELLING Verified 02/26/23 15:42 AT SITE AND REDNESS Home Medications Medication Instructions Recorded Confirmed Type blood sugar diagnostic (OneTouch 09/04/22 04/25/23 History Ultra Test strips) blood-glucose meter (OneTouch 09/04/22 04/25/23 History Ultra2 Meter) blood-glucose transmitter (Dexcom 09/04/22 04/25/23 History G6 Transmitter device) blood-glucose meter,continuous #1 ea 02/26/23 04/25/23 Rx (Dexcom G7 Orchestra Conductor) insulin detemir U-100 100 unit/mL 11 unit (0.11 mL) subcut BID #30 mL 02/26/23 04/25/23 Rx (3 mL) subcutaneous pen (Levemir FlexPen) pen needle, diabetic 32 gauge x #100 ea 02/26/23 04/25/23 Rx 5/16" (Comfort EZ Pen [place]) blood-glucose sensor (Dexcom G7 #9 ea 02/28/23 04/25/23 Rx Sensor device) levothyroxine 112 mcg tablet 112 mcg PO DAILY #30 tabs 03/19/23 04/25/23 Rx rosuvastatin 10 mg tablet (Crestor) 10 mg PO DAILY #30 tabs 04/17/23 04/25/23 Rx furosemide 40 mg tablet (Lasix) 40 mg PO DAILY #60 tabs 04/19/23 04/25/23 Rx potassium chloride 10 mEq 10 meq PO DAILY #30 tabs 04/19/23 04/25/23 Rx tablet,extended release insulin aspart U-100 100 unit/mL 8 unit subcut TIDM 04/25/23 04/25/23 History subcutaneous solution (Novolog U-100 Insulin aspart) Past Med/Surg History Medical History Diabetes Diabetic foot ulcer with osteomyelitis Sensory neuropathy due to type 1 diabetes mellitus Uterine cancer Surgical History H/O: hysterectomy Family History Mother Myocardial infarction Denies family history of Ovarian cancer Prostate cancer Breast cancer Colorectal cancer Social History Smoking Status: Never smoker Second Hand Exposure: No; Do You Dip or Chew Tobacco: No; Hx Alcohol Use: Yes Alcohol type: beer Alcohol Intake Frequency: Monthly or Less Hx Substance Use: No Preferred Language: German Communication Ability: Effective Visual Impairment: No Limitations Hearing Ability: Normal Optometry Assistant Required: No Beliefs That Will Affect Care: None marital status: Single Current Living Situation: Family Current Living Situation Comment: With sisters family. current occupational status: retired Other Information That Helps Us Care for You: No Feels Safe at Home: Yes Safety Concerns: Feels Safe At This Time Childhood Exposure to Second-Hand Smoke: Yes Diet: low carbohydrate caffeine: Yes during the past year weight has: remained stable Dental Care, Regularly: No Physical Activity Frequency: Daily Seatbelt Use: always Sunscreen Use: No Assistive Devices: None Review of Systems Review of Systems: Per HPI Physical Exam Physical Exam: General: well-appearing, no acute distress HEENT: PERRL, EOMI, conjunctivae clear without injection, anicteric sclerae, moist mucous membranes, clear oropharynx without exudate or erythema Neck: supple, trachea midline, no thyromegaly, no JVD, no cervical lymphadenopathy CV: RRR, normal S1 and S2, no murmurs Resp: CTAB, no increased work of breathing, no crackles or wheezes Abd: Soft, nontender, nondistended, no guarding or rebound, no hepatosplen omegaly MSK: Normal bulk of all four extremities Neuro: AOx3, no focal motor or sensory deficits. Intact b/l LE plantar and dorsiflexion, intact sensorium to light touch Skin: +erythema of R great toe with mild spread to dorsum. Tender to minimal palpation from toe to dorsum up to medial cheek. Necrotic debris with black discoloration and expressible blood + purulent drainage from wound. Ext: 1+ b/l LE peripheral edema greater on R > L up to knees, capillary refill <2s in all four extremities, 2+ LE peripheral pulses b/l Results & Data Results & Data Vital Signs (Past 12 Hours) Vital Signs Temp Pulse Pulse Resp BP BP Pulse Ox 04/25/23 19:00 86 16 99/62 L 99 04/25/23 14:24 36.6 C 94 H 16 130/81 95 Code Status & VTE Plan VTE Prophylaxis Plan VTE Prophylaxis will be ordered: Yes Supervising Physician Co-Signing Physician Notes Attending addendum: I have physically seen this patient, have supervised the medical residents activities, and agree with the H&P unless as otherwise noted. Assessment and Plan: Diabetic foot infection/osteomyelitis- Continue vancomycin IV per pharmacokinetic monitoring Zosyn 4.5 g IV every 8 hours Follow blood cultures and wound cultures MRI right foot and ankle Consult podiatry Dr. George Lower extremity edema- Likely contributing to infection, however, hold furosemide due to relatively low blood pressure Diabetes mellitus- Recent A1c 6.5 on 03/18 Placed on Accu-Cheks with NovoLog SSI Hypokalemia- Potassium 3.3 noted admission Replace with oral potassium, repeat laboratories in a.m. Remaining orders and notations as noted Resident Activity Tracking Resident Involvement: Resident Care Provided Care Provided: Adult Hospital Medicine
[2023-04-25] MEDS ORDERED: POTASSIUM CHLORIDE CRTAB 20 MEQ TABCR PO STA (20:48)
[2023-04-25] MEDS ORDERED: GADOBUTROL 65ML VIAL IV ONE (22:24)
--- NOTE | 2023-04-25 22:59 | Magnetic Resonance Report ---
Exam(s): MRI RIGHT FOOT W/WO Contrast IV Amt: 7.7 gadavist EXAM: MR Right Lower Extremity Without and With Intravenous Contrast, Foot CLINICAL HISTORY: Reason for exam: evaluate osteomyelitis. TECHNIQUE: Multiplanar magnetic resonance images of the right foot without and with intravenous contrast. CONTRAST: Patient received 7.7 gadavist of IV contrast COMPARISON: No relevant prior studies available. FINDINGS: Ulcer along the great toe, which is limited in evaluation on MRI due to suboptimal field of view. Edema in the great toe distal phalanx and distal aspect of the proximal phalanx, concerning for osteomyelitis. Mild great toe interphalangeal joint fusion, which may indicate septic arthritis. Second and third toes demonstrate incomplete fat suppression which limits evaluation for osteomyelitis. No definite fluid collection or abscess. Mild degenerative midfoot arthropathy. No metatarsal fracture. No Lisfranc malalignment. Moderate dorsal subcutaneous edema. IMPRESSION: Ulcer along the great toe, which is limited in evaluation on MRI due to suboptimal field of view. Edema in the great toe distal phalanx and distal aspect of the proximal phalanx, concerning for osteomyelitis. Mild great toe interphalangeal joint fusion, which may indicate septic arthritis. Electronically signed by: Abhishek Ruiz MD 04/25/23 22:58 PM
--- NOTE | 2023-04-25 23:06 | Magnetic Resonance Report ---
Exam(s): MRI RIGHT ANKLE W/WO Contrast IV Amt: 7.7 gadavist EXAM: MR Right Lower Extremity Without and With Intravenous Contrast, Ankle CLINICAL HISTORY: Reason for exam: evaluate osteomyelitis. TECHNIQUE: Multiplanar magnetic resonance images of the right ankle without and with intravenous contrast. CONTRAST: Patient received 7.7 gadavist of IV contrast COMPARISON: No relevant prior studies available. FINDINGS: No wound or ulcer identified of the ankle or heel. Correlate with physical exam. Intact tibiotalar, subtalar, calcaneocuboid, and talonavicular joints. Intact distal Achilles tendon. Mild edema in Kager's fat pad. Mild thickening of the medial cord of the plantar fascia, with a 6 mm heel spur. Normal sinus Tarsi. Circumferential subcutaneous edema. Intact medial flexor tendons. Intact lateral peroneal tendons. Intact anterior extensor tendons. Normal syndesmotic ligaments. Mild scarring of the anterior talofibular and calcaneofibular ligaments. Intact deltoid ligament. Stage I osteochondral lesion of the medial talar dome, with edema measuring approximately 8 x 5 mm. IMPRESSION: No wound or ulcer identified of the ankle or heel. Correlate with physical exam. No fluid collection or abscess. No ankle osteomyelitis. Circumferential subcutaneous edema. Stage I osteochondral lesion of the medial talar dome, with edema measuring approximately 8 x 5 mm. Electronically signed by: Abhishek Ruiz MD 04/25/23 23:05 PM
[2023-04-25] MEDS ORDERED: ONDANSETRON INJ 2 MG/ML 2 ML VIAL IV PRN (23:23)
[2023-04-25] MEDS ORDERED: DEXTROSE 50% 50 ML SYRINGE IV PRN (23:23)
[2023-04-25] MEDS ORDERED: GLUCOSE 40% GEL 15 GM TUBE PO PRN (23:23)
[2023-04-25] MEDS ORDERED: CARBOHYDRATES FOR HYPOGLYCEMIA PO PRN (23:23)
[2023-04-25] MEDS ORDERED: GLUCAGON FOR INJ 1 MG VIAL SQ PRN (23:23)
[2023-04-25] MEDS ORDERED: GLUCOSE 10 TAB/TUBE PO PRN (23:23)
[2023-04-26] MEDS: LACTATED RINGER'S 1,000 ML IV SCH ×3 (00:06→16:26)
[2023-04-26] MEDS: ACETAMINOPHEN 500 MG TAB PO SCH ×4 (00:24→23:55)
[2023-04-26] MEDS: PIPERACILLIN/TAZOBACTAM 4.5 GM in DEXTROSE 5% 100 ML IV SCH ×3 (01:01→21:44)
[2023-04-26] MEDS: VANCOMYCIN HCL 1,000 MG in SODIUM CHLORIDE 0.9% 250 ML IV SCH ×2 (05:35→21:44)
[2023-04-26] MEDS: LEVOTHYROXINE SODIUM 112 MCG TABLET PO SCH (05:36)
[2023-04-26 07:57] LABS: Hematocrit (blood only) 34.9 % (37.0-47.0); Hemoglobin 12.2 g/dl (12.0-16.0); Mean Corpuscular Hemoglobin 31.1 pg (25.0-34.0); Mean Platelet Volume 9.8 fL (9.4-12.4); Platelet Count 201 K/uL (130-400); RDW Coefficient of Variation 11.9 % (11.5-14.5); RDW Standard Deviation 38.5 fL (36.4-46.3); Red Blood Count 3.92 M/uL (4.20-5.40); White Blood Count 7.47 K/ul (4.8-10.8)
--- NOTE | 2023-04-26 08:08 | Hospitalist Progress Note ---
Date of Service April 26, 2023 Assessment & Plan (1) Diabetic foot ulcer with osteomyelitis: Plan: -Diabetic patient with toe wound and progressive LE pain, associated leukocytosis + XR findings suggestive of osteomyelitis -MRI R foot and ankle with evidence of R great toe osteomyelitis -Lactate negative, currently hemodynamically stable, not meeting SIRS criteria on admission -Continue vancomycin/ Zosyn, BCx and wound Cx pending -Podiatry consulted, NPO for R great toe amputation 04/26, pot op care to follow (2) Hypokalemia: Plan: -K 3.3 on admission -Repleted with oral K with level 3.9 today (3) Lower extremity edema: Plan: -Suspect chronic venous stasis with some exacerbation from acute soft tissue infection of R foot -Holding home furosemide given borderline low BP 100/60 (4) Hyperglycemia due to type 1 diabetes mellitus: Plan: -02/2023 A1C 6.5% -Patient with very labile BSG over last 12 hours, have asked glycemic management to assist given NPO, infection, labile sugars (5) Dyslipidemia: Plan: -Continue rosuvastatin (6) Hypothyroidism: Plan: -Continue levothyroxine Plan FENGI: NPO for now Code status: Full DVT prophylaxis: holding chemoprophylaxis Isolation: None Disposition: Medical/surgical Admission and Anticipated Discharge Date Admission Date: April 25, 2023 Subjective No acute overnight events. No pain at time of my interview, no other stated complaints. Physical Exam Constitutional: WD/WN, vitals as above Respiratory: normal respiratory effort, lungs clear to auscultation Cardiovascular: RRR, no murmur, no edema Gastrointestinal (Abdomen): normal bowel sounds, soft, nontender, no hepatosplenomegaly Skin: Skin: erythema to R great toe, with gangrenous black tip of toe Psychiatric: A+Ox3, euthymic affect Results & Data Results & Data Vital Signs (Past 12 Hours) Vital Signs Temp Pulse Pulse Resp BP Pulse Ox O2 Del Method 04/26/23 07:48 36.5 C 74 16 101/64 98 Room Air 04/25/23 23:05 36.4 C L 85 14 96/61 L 97 Room Air 04/25/23 22:52 78 16 108/53 L 96 PG Care Time/CCT Total # of Minutes Spent Total Time Spent with Patient: Total time spent is greater than 50% in coordination of care (as documented) at patient's floor/unit and/or counseling patient: Coding Level of Care Code 42743 SUB INP/OBS CARE MIN Diagnoses Diabetic foot ulcer with osteomyelitis E11.621; E11.69; L97.509; M86.9 Hypokalemia E87.6 Lower extremity edema R60.0 Hyperglycemia due to type 1 diabetes mellitus E10.65 Dyslipidemia E78.5 Hypothyroidism E03.9
[2023-04-26] MEDS: POTASSIUM CHLORIDE 10 MEQ TABCR PO SCH (08:15)
[2023-04-26] MEDS: ROSUVASTATIN CALCIUM 10 MG TAB PO SCH (08:15)
[2023-04-26 08:23] LABS: C Reactive Protein 2.6 mg/dl (0-0.5); Calcium 9.1 mg/dl (8.6-10.3); Creatinine Clr Calc Pharmacy 76.6 ml/min; Est GFR (Non-African American) 80.2 ml/min; Potassium 3.9 mmol/L (3.5-5.1)
--- NOTE | 2023-04-26 08:38 | Pharmacy Report ---
Pharmacy PK ABX Note - Date of Service April 26, 2023 - Assessment and Plan Assessment 62 year old F receiving IV Vancomycin + Zosyn for treatment of diabetic foot ulcer with osteomyelitis. Lactate negative, currently hemodynamically stable. MRI R foot and ankle with evidence of R great toe osteomyelitis. Pertinent microbiologic data includes: Negative MRSA Nasal Swab, Blood cultures pending. Plan Vancomycin * Loading dose: 1500 mg IV x 1 * Maintenance dose: 1000 mg IV every 12 hours * Regimen is predicted to achieve target AUC/WILFRED of 400-600 mg/L.hr * Random level ordered for: 04/27/23 Zosyn 4.5g IV x1 load then q8h extended interval infusion for CrCl > 20ml/min Pharmacy will continue to follow and will adjust dose/frequency as necessary. Thank you. Pharmacy has transitioned to AUC monitoring for vancomycin. AUC/WILFRED is the preferred PK/PD target and is associated with decreased risk of nephrotoxicity compared to traditional trough targets.
[2023-04-26] MEDS ORDERED: ENOXAPARIN INJ 40 MG/0.4 ML SYR SQ SCH (09:00)
[2023-04-26] MEDS: INSULIN ASPART PER UNIT CHARGE SC SCH ×4 (09:14→21:17)
[2023-04-26] MEDS: LANTUS PER UNIT CHARGE SQ SCH ×3 (09:21→21:17)
[2023-04-26] MEDS ORDERED: PHARMACY GLYCEMIC MGMT CONSULT PRN (13:00)
--- NOTE | 2023-04-26 13:28 | Pharmacy Report ---
Pharmacy Glycemic Short Note 2 - Date of Service April 26, 2023 - Glycemic Short BSG Results (Last 24 hours): 04/25/23 04/25/23 04/25/23 15:50 23:13 23:17 Glucose 268 H POC Glucose 51 L* 49 L* 04/25/23 04/25/23 04/25/23 23:31 23:33 23:50 Glucose POC Glucose 47 L* 60 L* 55 L* 04/26/23 04/26/23 04/26/23 00:22 07:03 07:51 Glucose 225 H POC Glucose 110 H 214 H 04/26/23 04/26/23 11:53 11:55 Glucose POC Glucose 379 H* 408 H* OUTPATIENT ANTIDIABETIC REGIMEN: * Levemir 11 units SQ BID * NovoLog 8 units TIDm ASSESSMENT: * 62 yo female, type 1 DM, admitted for DM foot ulcer w/ osteomyelitis, on IV antibiotics, with hypoglycemia last night around 2300, unknown why, then had breakfast this morning, and then NPO orders were placed by surgeon - patient did have carbs that were covered, but only received half of her morning basal dose (6 units). * Patient received 8 units SQ correctional insulin for hyperglycemia, 408mg/dl - will see how patient responds to this with next accucheck and make further changes at that time if necessary, for now will tighten CF/CR, and continue basal insulin. * Surgery to be after 4pm today d/t having breakfast, resume home basal tonight post-op when diet resumed. PLAN FOR INPATIENT GLYCEMIC CONTROL: * Hold outpatient diabetes medications * Basal insulin * Lantus 11 units SQ BID * Bolus insulin * NovoLog per scale ACHS or Q6hrs while NPO * Goal Range: Low 120 mg/dL - High 150 mg/dL - higher goal range for patient with hypoglycemia yesterday * Correction Factor: 25 mg/dL/unit * Nutritional / Prandial insulin per carb ratio of 1 unit per 8 grams CHO consumed
--- NOTE | 2023-04-26 14:34 | Anesthesiology Consultation ---
Date of Service April 26, 2023 Assessment & Plan (1) Encounter for pre-operative examination: Chart Review Chart Review: Acceptable Risk for Surgery History Surgery Operation Date: 04/26/23 07:00 Proposed Procedures p Right Amputation 1st Toe - Jacky George DPM, MS Height/Weight Height: 5 ft 4 in Weight: 82.191 kg Allergies Allergy/AdvReac Type Severity Reaction Status Date / Time tetanus toxoid, adsorbed AdvReac Intermediate SWELLING Verified 02/26/23 15:42 AT SITE AND REDNESS Medications Home Medications Medication Instructions Recorded Confirmed Last Taken blood sugar diagnostic (OneTouch 09/04/22 04/25/23 Unknown Ultra Test strips) blood-glucose meter (OneTouch 09/04/22 04/25/23 Unknown Ultra2 Meter) blood-glucose transmitter (Dexcom 09/04/22 04/25/23 Unknown G6 Transmitter device) blood-glucose meter,continuous #1 ea 02/26/23 04/25/23 Unknown (Dexcom G7 Substance Abuse Clinician) insulin detemir U-100 100 unit/mL 11 unit (0.11 mL) subcut BID #30 mL 02/26/23 04/25/23 Unknown (3 mL) subcutaneous pen (Levemir FlexPen) pen needle, diabetic 32 gauge x #100 ea 02/26/23 04/25/23 Unknown 5/16" (Comfort EZ Pen [place]) blood-glucose sensor (Dexcom G7 #9 ea 02/28/23 04/25/23 Unknown Sensor device) levothyroxine 112 mcg tablet 112 mcg PO DAILY #30 tabs 03/19/23 04/25/23 Unknown rosuvastatin 10 mg tablet (Crestor) 10 mg PO DAILY #30 tabs 04/17/23 04/25/23 Unknown furosemide 40 mg tablet (Lasix) 40 mg PO DAILY #60 tabs 04/19/23 04/25/23 Unknown potassium chloride 10 mEq 10 meq PO DAILY #30 tabs 04/19/23 04/25/23 Unknown tablet,extended release insulin aspart U-100 100 unit/mL 8 unit subcut TIDM 04/25/23 04/25/23 Unknown subcutaneous solution (Novolog U-100 Insulin aspart) Active Medications Generic Name Dose Route Start Last Admin Trade Name Freq PRN Reason Stop Dose Admin Acetaminophen 1,000 mg 04/26/23 00:00 04/26/23 08:14 Acetaminophen 500 Mg Tab PO 05/26/23 00:00 1,000 mg Q8H KELLY Administration Glucose 4 - 8 tab 04/25/23 23:23 04/25/23 23:55 Glucose 10 Tab/Tube PO 05/25/23 23:22 4 tab UD PRN Administration Hypoglycemia Treatment Protocol Piperacillin Sod/Tazobactam 120 mls @ 30 mls/hr 04/26/23 00:00 04/26/23 13:58 Sod 4.5 gm/ Dextrose IV 06/07/23 00:00 Infused Q8H KELLY Infusion Protocol Vancomycin HCl 1,000 mg/ 270 mls @ 200 mls/hr 04/26/23 06:00 04/26/23 10:37 Sodium Chloride IV 06/07/23 05:59 Infused Q12H KELLY Infusion Lactated Ringer's 1,000 mls @ 125 mls/hr 04/25/23 23:45 04/26/23 08:23 Lr IV 04/26/23 23:44 125 mls/hr .Q8H KELLY Administration Insulin Aspart 0 units 04/26/23 07:30 04/26/23 12:14 Insulin Aspart Per Unit Charge SC 05/26/23 07:29 8 units ACHS KELLY Administration Protocol Insulin Glargine 11 units 04/26/23 09:00 04/26/23 09:22 Lantus Per Unit Charge SQ 05/26/23 08:59 6 units BID KELLY Administration Levothyroxine Sodium 112 mcg 04/26/23 06:30 04/26/23 05:36 Levothyroxine Sodium 112 Mcg Tablet PO 05/26/23 06:29 112 mcg DAILYBB KELLY Administration Miscellaneous 15 - 30 gm 04/25/23 23:23 04/25/23 23:13 Carbohydrates For Hypoglycemia PO 05/25/23 23:22 30 gm UD PRN Administration Hypoglycemia Protocol Potassium Chloride 10 meq 04/26/23 09:00 04/26/23 08:15 Potassium Chloride 10 Meq Tabcr PO 05/26/23 08:59 10 meq DAILY KELLY Administration Rosuvastatin Calcium 10 mg 04/26/23 09:00 04/26/23 08:15 Rosuvastatin Calcium 10 Mg Tab PO 05/26/23 08:59 10 mg DAILY KELLY Administration Past Medical History Medical History (Updated 04/26/23 @ 14:34 by Tae Redd MD) Diabetes Diabetic foot ulcer with osteomyelitis Sensory neuropathy due to type 1 diabetes mellitus Uterine cancer Past Family History Family History Mother Myocardial infarction Denies family history of Ovarian cancer Prostate cancer Breast cancer Colorectal cancer Past Surgical History Surgical History H/O: hysterectomy Social History Smoking Status: Never smoker Do You Dip or Chew Tobacco: No Hx Alcohol Use: Yes Alcohol type: beer alcohol intake frequency: holidays/special occasions only Hx Substance Use: No substance use type: does not use Physical Exam Vital Signs Last Vital Signs Temp 36.5 C 04/26/23 07:48 Pulse 74 04/26/23 07:48 Resp 16 04/26/23 07:48 BP 101/64 04/26/23 07:48 Pulse Ox 98 04/26/23 07:48 O2 Del Method Room Air 04/26/23 07:48 Testing Laboratory Results 04/26/23 07:03 04/26/23 07:03 PT 10.6 Seconds (9.0-12.0) 04/25/23 19:13 INR 1.0 (0.9-1.1) 04/25/23 19:13 04/26/23 04/26/23 04/26/23 11:55 11:53 07:51 POC Glucose 408 H* 379 H* 214 H Electrocardiogram Date: 01/31/23 Findings: + NSR @ (75) Echocardiogram Date: 01/30/23 EF: 60-65% LV Function: normal Valvular Disease: + AI (mild)
--- NOTE | 2023-04-26 16:54 | Orthopedic Consultation ---
Date of Consultation April 26, 2023 Assessment & Plan (1) Diabetic foot ulcer with osteomyelitis: Patient seen, evaluated, and treated. Reviewed MRI and x-ray images as well as findings with Patient. Discussed diabetic foot ulcer and finding of osteomyelitis. Patient reports family history of diabetes, diabetic foot ulcers, osteomyelitis, and ultimately amputations. She elects for Right great toe amputation. We reviewed procedure and possible complications. Consent for surgery obtained. (2) Diabetic infection of right foot: (3) Foot pain: History of Present Illness Attending Physician: Margarita Cantor DO History of Present Illness Patient is a 62 year old female seen at bedside for Right great to ulcer. History obtained from Patient and previous documentation. Patient has a past medical history significant for type I diabetes with peripheral neuropathy, HLD, hypothyroidism, and questionable history of DVTs. Patient reports wound present for over 2 weeks after cutting her toenail. She notes toe wound has had purulent discharge. She is receiving IV Zosyn q4hrs. Recent diagnostic imaging x-ray and MRI show positive osteomyelitis of the right distal phalanx. Allergies Allergy/AdvReac Type Severity Reaction Status Date / Time tetanus toxoid, adsorbed AdvReac Intermediate SWELLING Verified 02/26/23 15:42 AT SITE AND REDNESS Home Medications Medication Instructions Recorded Confirmed Type blood sugar diagnostic (OneTouch 09/04/22 04/25/23 History Ultra Test strips) blood-glucose meter (OneTouch 09/04/22 04/25/23 History Ultra2 Meter) blood-glucose transmitter (Dexcom 09/04/22 04/25/23 History G6 Transmitter device) blood-glucose meter,continuous #1 ea 02/26/23 04/25/23 Rx (Dexcom G7 Boat Painter) insulin detemir U-100 100 unit/mL 11 unit (0.11 mL) subcut BID #30 mL 02/26/23 04/25/23 Rx (3 mL) subcutaneous pen (Levemir FlexPen) pen needle, diabetic 32 gauge x #100 ea 02/26/23 04/25/23 Rx 5/16" (Comfort EZ Pen Friend) blood-glucose sensor (Dexcom G7 #9 ea 02/28/23 04/25/23 Rx Sensor device) levothyroxine 112 mcg tablet 112 mcg PO DAILY #30 tabs 03/19/23 04/25/23 Rx rosuvastatin 10 mg tablet (Crestor) 10 mg PO DAILY #30 tabs 04/17/23 04/25/23 Rx furosemide 40 mg tablet (Lasix) 40 mg PO DAILY #60 tabs 04/19/23 04/25/23 Rx potassium chloride 10 mEq 10 meq PO DAILY #30 tabs 04/19/23 04/25/23 Rx tablet,extended release insulin aspart U-100 100 unit/mL 8 unit subcut TIDM 04/25/23 04/25/23 History subcutaneous solution (Novolog U-100 Insulin aspart) Patient History Medical History Diabetes Diabetic foot ulcer with osteomyelitis Sensory neuropathy due to type 1 diabetes mellitus Uterine cancer Surgical History H/O: hysterectomy Family History Mother Myocardial infarction Denies family history of Ovarian cancer Prostate cancer Breast cancer Colorectal cancer Social History Smoking Status: Never smoker Second Hand Exposure: No; Do You Dip or Chew Tobacco: No; Hx Alcohol Use: Yes Alcohol type: beer Alcohol Intake Frequency: Monthly or Less Hx Substance Use: No Preferred Language: Kinyarwanda Communication Ability: Effective Visual Impairment: No Limitations Hearing Ability: Normal Leather Case Finisher Required: No Beliefs That Will Affect Care: None marital status: Single Current Living Situation: Family Current Living Situation Comment: With sisters family. current occupational status: retired Other Information That Helps Us Care for You: No Feels Safe at Home: Yes Safety Concerns: Feels Safe At This Time Childhood Exposure to Second-Hand Smoke: Yes Diet: low carbohydrate caffeine: Yes during the past year weight has: remained stable Dental Care, Regularly: No Physical Activity Frequency: Daily Seatbelt Use: always Sunscreen Use: No Assistive Devices: None Physical Exam Constitutional: cooperative and comfortable Eyes: normal visual de la torre by confrontation Neck: trachea midline Respiratory: normal respiratory effort Cardiovascular: Rate/Rhythm: regular rate and regular rhythm Vessels: posterior tibial pulses present and dorsalis pedis pulses present Musculoskeletal: Extremities: extremities normal to inspection Skin: + ulcer (Right hallux distal full thickness diabetic ulcer) Neurologic: moves all extremities (Absent epicritic sensation) Psychiatric: Orientation: alert and oriented x 3 Results & Data Vital Signs (Past 12 Hours) Vital Signs Temp Pulse Resp BP Pulse Ox O2 Del Method 04/26/23 15:39 36.4 C L 75 16 126/72 97 Room Air 04/26/23 07:48 36.5 C 74 16 101/64 98 Room Air Diagnostic Findings XR foot RT min 3V routine CLINICAL HISTORY: Right first toe wound and swelling. COMPARISON: None FINDINGS: Alignment of the right foot is anatomic. Tarsometatarsal joints are intact. Note is made of right first toe soft tissue swelling. Irregularity of the distal right first toe suggests a wound. Note is made of osteolysis of the lateral aspect of the distal tuft of the distal phalanx of the right first toe. No additional sites of bony erosion are identified within the right foot. Flattening of the right second metatarsal head is chronic. Plantar calcaneal spur is noted. IMPRESSION: Findings highly suggestive of acute osteomyelitis of the distal tuft of the distal phalanx of the right first toe. ACT 112: Negative or not required by law. Electronically signed by: Navjot Live M.D. 04/25/2023 7:16 PM EXAM: MR Right Lower Extremity Without and With Intravenous Contrast, Foot CLINICAL HISTORY: Reason for exam: evaluate osteomyelitis. TECHNIQUE: Multiplanar magnetic resonance images of the right foot without and with intravenous contrast. CONTRAST: Patient received 7.7 gadavist of IV contrast COMPARISON: No relevant prior studies available. FINDINGS: Ulcer along the great toe, which is limited in evaluation on MRI due to suboptimal field of view. Edema in the great toe distal phalanx and distal aspect of the proximal phalanx, concerning for osteomyelitis. Mild great toe interphalangeal joint fusion, which may indicate septic arthritis. Second and third toes demonstrate incomplete fat suppression which limits evaluation for osteomyelitis. No definite fluid collection or abscess. Mild degenerative midfoot arthropathy. No metatarsal fracture. No Lisfranc malalignment. Moderate dorsal subcutaneous edema. IMPRESSION: Ulcer along the great toe, which is limited in evaluation on MRI due to suboptimal field of view. Edema in the great toe distal phalanx and distal aspect of the proximal phalanx, concerning for osteomyelitis. Mild great toe interphalangeal joint fusion, which may indicate septic arthritis. Electronically signed by: Abhishek Ruiz MD 04/25/23 22:58 PM
[2023-04-26] MEDS ORDERED: BUPIVACAINE 0.5 % 5 MG/1 ML MPF 30ML VIAL ONE (18:18)
[2023-04-26] MEDS ORDERED: fentaNYL citrate PF 100 MCG/2 ML VIAL ONE (18:49)
[2023-04-26] MEDS ORDERED: PROPOFOL IV EMULSION 10 MG/ML 20 ML VIAL IV ONE (18:49)
[2023-04-26] MEDS ORDERED: MIDAZOLAM HCL 1 MG/ML 2ML VIAL ONE (18:50)
[2023-04-26] MEDS ORDERED: ePHEDrine sulfate 50 MG/ML AMP IV PRN (18:55)
[2023-04-26] MEDS ORDERED: fentaNYL citrate PF 100 MCG/2 ML VIAL IV PRN (18:55)
[2023-04-26] MEDS ORDERED: ATROPINE SULFATE 0.1 MG/ML 10ML SYR IV PRN (18:55)
--- NOTE | 2023-04-26 19:05 | History & Physical Bridge Note ---
Date of Service April 26, 2023 History & Physical Bridge Note I have examined the patient, reviewed the History & Physical and in the interval since the performance of the History & Physical I have noted the following changes of clinical significance: no changes noted
--- NOTE | 2023-04-26 19:43 | Post Operative Brief Note ---
Immediate Post Op Note v1 Date of Surgery April 26, 2023 Pre & Post Diagnosis Operation Date: 04/26/23 07:00 Pre-Op Diagnosis: Diabetic foot ulcer with osteomyelitis Post-Op Diagnosis: Diabetic foot ulcer with osteomyelitis I identified the patient and participated in the time-out.: Yes Procedure Operation Date: 04/26/23 07:00 Actual Procedures p Right Hallux Amputation (Right) - Jacky George DPM, MS Surgeon Jacky George DPM, MS Cooker Operator None Estimated Blood Loss 0 Findings Consistent with Post-Op Diagnosis consistent with pre operative diagnosis Specimens Right distal phalanx hallux - Microbiology Right distal phalanx hallux - Pathology
--- NOTE | 2023-04-26 20:30 | Anesthesiology Progress Note ---
Date of Service April 26, 2023 Anesthesia Post Procedure Vital Signs Vital Signs: Temp Pulse Pulse Resp BP Pulse Ox O2 Del Method 04/26/23 20:20 66 16 124/72 98 Room Air 04/26/23 20:10 36.2 C L 68 12 111/61 97 Room Air 04/26/23 20:00 65 12 112/65 99 Oxymask 04/26/23 19:50 36.4 C L 66 14 96/54 L 98 Oxymask 04/26/23 18:24 36.6 C 71 18 103/71 98 Room Air 04/26/23 15:39 36.4 C L 75 16 126/72 97 Room Air 04/26/23 07:48 36.5 C 74 16 101/64 98 Room Air 04/25/23 23:05 36.4 C L 85 14 96/61 L 97 Room Air 04/25/23 22:52 78 16 108/53 L 96 O2 Flow Rate 04/26/23 20:20 04/26/23 20:10 04/26/23 20:00 3 04/26/23 19:50 3 04/26/23 18:24 04/26/23 15:39 04/26/23 07:48 04/25/23 23:05 04/25/23 22:52 Pain Intensity Right Foot: Pain Intensity: 3 Transfer of Care Handoff Completed per policy Notes Mental Status: alert / awake / arousable Patient Amnestic to Procedure: Yes Nausea / Vomiting: adequately controlled Pain: adequately controlled Airway Patency, RR, SpO2: stable & adequate BP & HR: stable & adequate Hydration State: stable & adequate Anesthetic Complications: no major complications apparent and Pt Satisfied with anesthetic care
--- NOTE | 2023-04-26 21:01 | Operative Report ---
Post Operative Report Pre & Post Diagnosis Operation Date: 04/26/23 07:00 Pre-Op Diagnosis: Diabetic foot ulcer with osteomyelitis Post-Op Diagnosis: Diabetic foot ulcer with osteomyelitis I identified the patient and participated in the time-out.: Yes Procedure Operation Date: 04/26/23 07:00 Actual Procedures p Right Hallux Amputation (Right) - Jacky George DPM, MS Surgeon Jacky George DPM, MS Cordwainer None Estimated Blood Loss 0 Findings Consistent with Post-Op Diagnosis none Specimens Right hallux distal phalanx Pathology and Microbiology Description of Procedure History of present illness: Patient is a 62 year old female who is seen for treatment of osteomyelitic Right great toe. Patient notes a diabetic foot ulcer open for 2 weeks. Patient relates minimal discomfort. All questions answered. Discussed procedure in detail and postoperative recovery. All potential risks, benefits, complications, alternatives, rehab, potential for incomplete relief of symptoms, need for further surgery, DVT, PE, , persistent pain, swelling, scarring, weakness, neurovascular, wound complicat ions, and potential for amputations were discussed with patient. Unwanted outcomes such as, but not limited to were reviewed including under correction, overcorrection, return of deformity, infection. All questions were answered. Patient has decided to proceed with procedure as indicated. Preoperative diagnosis: Diabetic ulcer right hallux, osteomyelitis right great toe. Postoperative diagnosis: same Name of operation: Amputation right great toe Surgeon Dr. George Cordwainer: None Anesthesia: local with monitored anesthesia care Hemostasis: None Estimated blood loss: minimal Procedure in detail: Under mild sedation the patient was brought in the operating room placed on the operating table in supine position. A pneumatic ankle tourniquet was then placed about the patient's right ankle. Following IV sedation local anesthesia was obtained about the right utilizing 15 cc of a one-to-one mixture of 1% lidocaine plain and 0.5% Marcaine plain. The foot was then prepped scrubbed and draped in usual aseptic manner. Attention was then directed to a nonhealing diabetic ulcer on the right great toe. A fishmouth incision was created utilizing a sharp, sterile, #15 blade. The incision which was deepened through subcutaneous tissue using sharp blunt dissection. Care was taken to identify and retract all vital neurovascular structures. All bleeders were ligated and cauterized necessary. At this time the right hallux was removed at the interphalangeal joint. The distal portion of the right hallux was sent to pathology. A small fragment of the right hallux distal phalanx was sent to microbiology. Copious amounts of sterile normal saline were utilized to flush the incision site. The skin was then primarily closed utilizing 3-0 nylon in horizontal suture mattress techniques as well as simple suture closure. Upon completion of the procedure the incision was dressed with Betadine soaked Adaptic followed by sterile compressive dressing consisting of 4 x 4's Maria Teresa Kerlix ABD. A post operative shoe was then applied. The Patient tolerated the procedure and anesthesia well. She was transferred to recovery room vital signs stable. After a period of postoperative monitoring the patient will be readmitted to the floor. Please contact Dr. George for all postoperative care if any problems arise . I attest to the content of the Intraoperative Record and any orders documented therein. Any exceptions are noted below.
[2023-04-27] MEDS ORDERED: LACTATED RINGER'S 1,000 ML IV SCH (00:15)
[2023-04-27] MEDS: traMADol HCL 50 MG TABLET PO PRN ×2 (01:38→16:49)
--- NOTE | 2023-04-27 03:14 | Billing Data ---
Date of Service April 27, 2023 Coding Level of Care Code 63851 INT INP/OBS CARE
[2023-04-27] MEDS: PIPERACILLIN/TAZOBACTAM 4.5 GM in DEXTROSE 5% 100 ML IV SCH ×3 (05:38→20:21)
[2023-04-27] MEDS: LEVOTHYROXINE SODIUM 112 MCG TABLET PO SCH (05:38)
[2023-04-27 06:38] LABS: Hematocrit (blood only) 33.6 % (37.0-47.0); Hemoglobin 11.6 g/dl (12.0-16.0); Mean Corpuscular Hemoglobin 31.2 pg (25.0-34.0); Mean Corpuscular Hgb Conc 34.5 g/dL (32.0-36.0); Mean Corpuscular Volume 90.3 fL (80.0-100.0); Mean Platelet Volume 9.4 fL (9.4-12.4); Platelet Count 204 K/uL (130-400); RDW Coefficient of Variation 11.9 % (11.5-14.5); RDW Standard Deviation 38.9 fL (36.4-46.3); Red Blood Count 3.72 M/uL (4.20-5.40); White Blood Count 5.98 K/ul (4.8-10.8)
[2023-04-27 06:47] LABS: BUN Creatinine Ratio 16.2 (10-20); Calcium 8.8 mg/dl (8.6-10.3); Est GFR (African American) 108.7 ml/min; Est GFR (Non-African American) 93.7 ml/min
[2023-04-27] MEDS ORDERED: VANCOMYCIN LEVEL ONE (08:00)
[2023-04-27] MEDS: ROSUVASTATIN CALCIUM 10 MG TAB PO SCH (08:04)
[2023-04-27] MEDS: POTASSIUM CHLORIDE 10 MEQ TABCR PO SCH (08:05)
[2023-04-27] MEDS: ACETAMINOPHEN 500 MG TAB PO SCH ×3 (08:05→23:39)
[2023-04-27] MEDS: INSULIN ASPART PER UNIT CHARGE SC SCH ×4 (08:06→21:21)
[2023-04-27] MEDS: LANTUS PER UNIT CHARGE SQ SCH ×2 (08:09→21:21)
--- NOTE | 2023-04-27 08:47 | Pharmacy Report ---
Pharmacy PK ABX Note - Date of Service April 27, 2023 - Assessment and Plan Assessment 04/27 * Random vancomycin level came back at ~12 mcg/ml - this current vancomycin dosing is estimated to achieve an AUC/WILFRED of 400-600 therefore will continue current regimen * Awaiting further OR culture results 04/26 * 62 year old F receiving IV Vancomycin + Zosyn for treatment of diabetic foot ulcer with osteomyelitis. Lactate negative, currently hemodynamically stable. * MRI R foot and ankle with evidence of R great toe osteomyelitis. * Pertinent microbiologic data includes: Negative MRSA Nasal Swab, Blood cultures pending. Plan Vancomycin * Continue vancomycin 1000 mg iv q 12 hours * Will recheck level in next 2-3 days or sooner if renal function changes Zosyn 4.5g IV x1 load then q8h extended interval infusion for CrCl > 20ml/min Pharmacy will continue to follow and will adjust dose/frequency as necessary. Thank you. Pharmacy has transitioned to AUC monitoring for vancomycin. AUC/WILFRED is the preferred PK/PD target and is associated with decreased risk of nephrotoxicity compared to traditional trough targets.
[2023-04-27] MEDS: VANCOMYCIN HCL 1,000 MG in SODIUM CHLORIDE 0.9% 250 ML IV SCH (09:02)
--- NOTE | 2023-04-27 11:39 | Ultrasound Report ---
BILATERAL LOWER EXTREMITY ARTERIAL DOPPLER ULTRASOUND CLINICAL HISTORY: Right toe amputation. COMPARISON STUDY: No previous studies for comparison. TECHNIQUE: Sonography of the arterial systems of both lower extremities was performed. Ankle to brach ial indices could not be obtained due to vessel noncompressibility. FINDINGS: Extensive atherosclerotic plaque was noted within the lower extremities, greater on the rig ht. Elevated peak systolic velocity of 509 cm/s within the right common femoral artery suggest a hemo dynamically significant stenosis. There is monophasic flow within the remainder of the right lower ex tremity. The right lower extremity vessels were patent. There is triphasic flow within left common femoral artery. Portions of the left superficial femoral a rtery are obscured by plaque. There is biphasic flow within the remainder of the left superficial fem oral artery. There is biphasic flow within the left popliteal, anterior tibial, posterior tibial and peroneal vessels. There is monophasic flow within the left dorsalis pedis. IMPRESSION: 1. Extensive atherosclerotic plaque within the lower extremities, greater on the right. 2. Findings suggestive of a hemodynamically significant stenosis within the right common femoral patric ry. Monophasic flow within the remainder of the right lower extremity. 3. Calcified plaque within the left superficial femoral artery which compromised visualization of thi s portion of the vessel. However, no significantly elevated velocities and biphasic flow distal to th e site. 4. Monophasic flow within the left dorsalis pedis. ACT 112: Negative or not required by law. Electronically signed by: Navjot Live M.D. 04/27/2023 11:38 AM
--- NOTE | 2023-04-27 12:07 | Pharmacy Report ---
Pharmacy Glycemic Short Note 2 - Date of Service April 27, 2023 - Glycemic Short BSG Results (Last 24 hours): 04/26/23 04/26/23 04/27/23 19:54 20:51 06:08 Glucose 197 H POC Glucose 161 H 152 H 04/27/23 04/27/23 07:43 11:41 Glucose POC Glucose 202 H 226 H OUTPATIENT ANTIDIABETIC REGIMEN: * Levemir 11 units SQ BID * NovoLog 8 units TIDm ASSESSMENT: 04/27 * Patient received total of 30 units of insulin yesterday, of which 17 units were basal insulin * Fasting BSG elevated at 202 mg/dL - patient NPO for procedure yesterday and reduced home basal dose given. Reasonable to continue home basal insulin today as now diet is ordered. Home insulin regimen is pretty evenly split basal/bolus * Lunch BSG 226 mg/dL - will loosen CF/CR slightly as with previous CF yesterday's lunch BSGs trended down significantly. 04/26 * 62 yo female, type 1 DM, admitted for DM foot ulcer w/ osteomyelitis, on IV antibiotics, with hypoglycemia last night around 2300, unknown why, then had breakfast this morning, and then NPO orders were placed by surgeon - patient did have carbs that were covered, but only received half of her morning basal dose (6 units). * Patient received 8 units SQ correctional insulin for hyperglycemia, 408mg/dl - will see how patient responds to this with next accucheck and make further changes at that time if necessary, for now will tighten CF/CR, and continue basal insulin. * Surgery to be after 4pm today d/t having breakfast, resume home basal tonight post-op when diet resumed. PLAN FOR INPATIENT GLYCEMIC CONTROL: * Hold outpatient diabetes medications * Basal insulin * Lantus 11 units SQ BID * Bolus insulin * NovoLog per scale ACHS or Q6hrs while NPO * Goal Range: Low 120 mg/dL - High 150 mg/dL - higher goal range for patient with hypoglycemia yesterday * Correction Factor: 35 mg/dL/unit * Nutritional / Prandial insulin per carb ratio of 1 unit per 12 grams CHO consumed
--- NOTE | 2023-04-27 15:31 | Hospitalist Progress Note ---
Date of Service April 27, 2023 Assessment & Plan (1) Diabetic foot ulcer with osteomyelitis: Plan: -Diabetic patient with toe wound and progressive LE pain, associated leukocytosis + XR and MRI findings suggestive of osteomyelitis -she is now s/p foot amputation -Per Podiatry, clean margins were obtained -Will await wound cultures -Patient may need a few days of PO antibiotics on discharge (2) Hypokalemia: Plan: -K 3.3 on admission -Repleting with oral K -Trend BMP (3) Lower extremity edema: Plan: -Suspect chronic venous stasis with some exacerbation from acute soft tissue infection of R foot -Holding home furosemide given borderline-low BP 103/67 (4) Hyperglycemia due to type 1 diabetes mellitus: Plan: -02/2023 A1C 6.5% -Patient with very labile BSG over last 12 hours, have asked glycemic management to assist given NPO, infection, labile sugars (5) Dyslipidemia: Plan: -Continue rosuvastatin (6) Hypothyroidism: Plan: -Continue levothyroxine Plan FENGI: DM1 Code status: Full DVT prophylaxis: Lovenox 40 mg daily Isolation: None Disposition: Medical/surgical, hopefully d/c in the next 24 hrs Admission and Anticipated Discharge Date Admission Date: April 25, 2023 Subjective patient seen and examined, no new complaints Review of Systems Review of Systems: All systems reviewed are negative, apart from the ones contained in the history. Physical Exam Physical Exam: The patient is awake, alert and oriented 3, well developed and well nourished, normocephalic and atraumatic, lying in bed and in no acute distress. HEENT--PERRL, EOMI, mucous membranes and oropharynx mildly dry Neck--supple. No JVD. No bruits. Thyroid normal, trachea midline, no adenopathy. Heart--normal S1 and S2. No murmurs, rubs or gallops. Lungs--clear bilaterally, no respiratory distress, no accessory muscle use. Abdomen--normal bowel sounds and soft. Mild epigastric and left sided abdominal pain Extremities--no cyanosis or clubbing. right foot in bandage Dermatologic--normal skin turgor, normal color, no abnormal lymph nodes, no rash. Neurologic--cranial nerves II through XII grossly intact. Rheumatologic--normal range of motion. Psychiatric--normal affect. Results & Data Results & Data Vital Signs (Past 12 Hours) Vital Signs Temp Pulse Resp BP Pulse Ox O2 Del Method 04/27/23 14:57 97.7 F 71 16 103/67 95 Room Air 04/27/23 08:22 97.7 F 79 16 102/67 95 Room Air 04/27/23 03:34 98.2 F 70 18 113/70 96 Room Air PG Care Time/CCT Total # of Minutes Spent Total Time Spent with Patient: Total time spent is greater than 50% in coordination of care (as documented) at patient's floor/unit and/or counseling patient: Coding Level of Care Code 78977 SUB INP/OBS CARE 2/35MIN Diagnoses Diabetic foot ulcer with osteomyelitis E11.621; E11.69; L97.509; M86.9 Hypokalemia E87.6 Lower extremity edema R60.0 Hyperglycemia due to type 1 diabetes mellitus E10.65 Dyslipidemia E78.5 Hypothyroidism E03.9 Time Spent (min) 35
[2023-04-27] MEDS: VANCOMYCIN HCL 1,250 MG in SODIUM CHLORIDE 0.9% 250 ML IV SCH (16:47)
[2023-04-28] MEDS: PIPERACILLIN/TAZOBACTAM 4.5 GM in DEXTROSE 5% 100 ML IV SCH ×3 (04:56→21:49)
[2023-04-28] MEDS: VANCOMYCIN HCL 1,250 MG in SODIUM CHLORIDE 0.9% 250 ML IV SCH (04:56)
[2023-04-28] MEDS: LEVOTHYROXINE SODIUM 112 MCG TABLET PO SCH (06:16)
[2023-04-28 06:27] LABS: Hematocrit (blood only) 34.5 % (37.0-47.0); Hemoglobin 11.8 g/dl (12.0-16.0); Mean Corpuscular Hemoglobin 31.2 pg (25.0-34.0); Mean Corpuscular Hgb Conc 34.2 g/dL (32.0-36.0); Mean Corpuscular Volume 91.3 fL (80.0-100.0); Mean Platelet Volume 9.6 fL (9.4-12.4); Platelet Count 216 K/uL (130-400); RDW Coefficient of Variation 11.9 % (11.5-14.5); RDW Standard Deviation 39.6 fL (36.4-46.3); Red Blood Count 3.78 M/uL (4.20-5.40); White Blood Count 7.11 K/ul (4.8-10.8)
[2023-04-28 06:54] LABS: BUN Creatinine Ratio 17.2 (10-20); Calcium 9.1 mg/dl (8.6-10.3); Creatinine Clr Calc Pharmacy 61.1 ml/min; Est GFR (African American) 70.8 ml/min; Est GFR (Non-African American) 61.1 ml/min; Potassium 4.3 mmol/L (3.5-5.1)
[2023-04-28] MEDS: ACETAMINOPHEN 500 MG TAB PO SCH ×3 (07:58→23:13)
[2023-04-28] MEDS: ROSUVASTATIN CALCIUM 10 MG TAB PO SCH (07:58)
[2023-04-28] MEDS: POTASSIUM CHLORIDE 10 MEQ TABCR PO SCH (07:58)
[2023-04-28] MEDS: INSULIN ASPART PER UNIT CHARGE SC SCH ×4 (08:02→21:50)
[2023-04-28] MEDS: LANTUS PER UNIT CHARGE SQ SCH (08:02)
--- NOTE | 2023-04-28 12:51 | Pharmacy Report ---
Pharmacy PK ABX Note - Date of Service April 28, 2023 - Assessment and Plan Assessment 04/28: * SCr bumped up to 0.99 this AM, obtained random level and current dose is now predicting above target AUC/WILFRED * Toe culture growing Staph sp. awaiting further identification/sensitivities * Will adjust dose back to 1000 mg q12H as dose had been bumped slightly yesterday afternoon 04/27 * Random vancomycin level came back at ~12 mcg/ml - this current vancomycin do sing is estimated to achieve an AUC/WILFRED of 400-600 therefore will continue current regimen * Awaiting further OR culture results 04/26 * 62 year old F receiving IV Vancomycin + Zosyn for treatment of diabetic foot ulcer with osteomyelitis. Lactate negative, currently hemodynamically stable. * MRI R foot and ankle with evidence of R great toe osteomyelitis. * Pertinent microbiologic data includes: Negative MRSA Nasal Swab, Blood cultures pending. Plan Vancomycin * Change vancomycin to 1000 mg iv q 12 hours * Monitor renal function, next level dependent on SCr trend Zosyn 4.5g IV x1 load then q8h extended interval infusion for CrCl > 20ml/min Pharmacy will continue to follow and will adjust dose/frequency as necessary. Thank you. Pharmacy has transitioned to AUC monitoring for vancomycin. AUC/WILFRED is the preferred PK/PD target and is associated with decreased risk of nephrotoxicity compared to traditional trough targets.
--- NOTE | 2023-04-28 13:10 | Hospitalist Progress Note ---
Date of Service April 28, 2023 Assessment & Plan (1) Diabetic foot ulcer with osteomyelitis: Plan: -Diabetic patient with toe wound and progressive LE pain, associated leukocytosis + XR and MRI findings suggestive of osteomyelitis -she is now s/p foot amputation -Per Podiatry, clean margins were obtained -Wound cultures growing Staph, full characterization pending -Patient may need a few days of PO antibiotics on discharge (2) Hypokalemia: Plan: -K 3.3 on admission -Repleting with oral K -Trend BMP (3) Lower extremity edema: Plan: -Suspect chronic venous stasis with some exacerbation from acute soft tissue infection of R foot -Holding home furosemide given borderline-low BP 103/67 (4) Hyperglycemia due to type 1 diabetes mellitus: Plan: -02/2023 A1C 6.5% -continue insulin home regimen. Glargine 15units BID, sliding scale (5) Dyslipidemia: Plan: -Continue rosuvastatin (6) Hypothyroidism: Plan: -Continue levothyroxine Plan FENGI: DM1 Code status: Full DVT prophylaxis: Lovenox 40 mg daily Isolation: None Disposition: Medical/surgical, hopefully d/c in the next 24 hrs Admission and Anticipated Discharge Date Admission Date: April 25, 2023 Subjective patient seen and examined, no new complaints Review of Systems Review of Systems: All systems reviewed are negative, apart from the ones contained in the history. Physical Exam Physical Exam: The patient is awake, alert and oriented 3, well developed and well nourished, normocephalic and atraumatic, lying in bed and in no acute distress. HEENT--PERRL, EOMI, mucous membranes and oropharynx mildly dry Neck--supple. No JVD. No bruits. Thyroid normal, trachea midline, no adenopathy. Heart--normal S1 and S2. No murmurs, rubs or gallops. Lungs--clear bilaterally, no respiratory distress, no accessory muscle use. Abdomen--normal bowel sounds and soft. Mild epigastric and left sided abdominal pain Extremities--no cyanosis or clubbing. right foot in bandage Dermatologic--normal skin turgor, normal color, no abnormal lymph nodes, no rash. Neurologic--cranial nerves II through XII grossly intact. Rheumatologic--normal range of motion. Psychiatric--normal affect. Results & Data Results & Data Vital Signs (Past 12 Hours) Vital Signs Temp Pulse Resp BP Pulse Ox O2 Del Method 04/28/23 08:00 Room Air 04/28/23 07:45 97.5 F L 66 16 132/74 94 Room Air 04/28/23 04:45 Room Air PG Care Time/CCT Total # of Minutes Spent Total Time Spent with Patient: Total time spent is greater than 50% in coordination of care (as documented) at patient's floor/unit and/or counseling patient: Coding Level of Care Code 36056 SUB INP/OBS CARE 2/35MIN Diagnoses Diabetic foot ulcer with osteomyelitis E11.621; E11.69; L97.509; M86.9 Hypokalemia E87.6 Lower extremity edema R60.0 Hyperglycemia due to type 1 diabetes mellitus E10.65 Dyslipidemia E78.5 Hypothyroidism E03.9 Time Spent (min) 35
[2023-04-28] MEDS: VANCOMYCIN HCL 1,000 MG in SODIUM CHLORIDE 0.9% 250 ML IV SCH (16:14)
[2023-04-28] MEDS ORDERED: LANTUS PER UNIT CHARGE SQ SCH (21:00)
--- NOTE | 2023-04-28 21:55 | Orthopedic Progress Note ---
Date of Service April 28, 2023 Assessment & Plan (1) Diabetic foot ulcer with osteomyelitis: Plan: Patient seen, evaluated, and treated. Patient status post day #2 right hallux amputation. Dressing changed with out incident. Skin well co-apted. Positive signs of healing Reviewed Duplex arterial ultra sign. (+) Right femoral stenosis Consider Vascular consult if available. If not available Patient may be seen as out Patient. Awaiting final culture and sensitivities. Currently growing Staph. (2) Diabetic infection of right foot: (3) Foot pain: Admission and Anticipated Discharge Date Admission Date: April 25, 2023 Subjective Patient seen at bedside resting comfortably. Patient status post day #2 right hallux amputation. Pain is well managed. No complaints. Review of Systems Review of Systems: All systems reviewed & are unremarkable except as noted in Subjective Physical Exam Constitutional: cooperative and comfortable Eyes: normal visual de la torre by confrontation Neck: trachea midline Respiratory: normal respiratory effort Cardiovascular: Rate/Rhythm: regular rate and regular rhythm Vessels: posterior tibial pulses present and dorsalis pedis pulses present Musculoskeletal: Extremities: extremities normal to inspection Skin: normal turgor (No signs of infection) and + wound (Right hallux amputation, sutures intact. Skin well co-apted. ) Neurologic: moves all extremities (Absent epicritic sensation) Psychiatric: Orientation: alert and oriented x 3 Results & Data Vital Signs (Past 12 Hours) Vital Signs Temp Pulse Resp BP Pulse Ox O2 Del Method 04/28/23 21:40 36.6 C 74 18 127/76 95 Room Air 04/28/23 14:59 36.5 C 71 16 121/72 94 Room Air Diagnostic Findings BILATERAL LOWER EXTREMITY ARTERIAL DOPPLER ULTRASOUND CLINICAL HISTORY: Right toe amputation. COMPARISON STUDY: No previous studies for comparison. TECHNIQUE: Sonography of the arterial systems of both lower extremities was performed. Ankle to brachial indices could not be obtained due to vessel noncompressibility. FINDINGS: Extensive atherosclerotic plaque was noted within the lower extremities, greater on the right. Elevated peak systolic velocity of 509 cm/s within the right common femoral artery suggest a hemodynamically significant stenosis. There is monophasic flow within the remainder of the right lower extremity. The right lower extremity vessels were patent. There is triphasic flow within left common femoral artery. Portions of the left superficial femoral artery are obscured by plaque. There is biphasic flow within the remainder of the left superficial femoral artery. There is biphasic flow within the left popliteal, anterior tibial, posterior tibial and peroneal vessels. There is monophasic flow within the left dorsalis pedis. IMPRESSION: 1. Extensive atherosclerotic plaque within the lower extremities, greater on the right. 2. Findings suggestive of a hemodynamically significant stenosis within the right common femoral artery. Monophasic flow within the remainder of the right lower extremity. 3. Calcified plaque within the left superficial femoral artery which compromised visualization of this portion of the vessel. However, no significantly elevated velocities and biphasic flow distal to the site. 4. Monophasic flow within the left dorsalis pedis. ACT 112: Negative or not required by law.
[2023-04-29] MEDS: VANCOMYCIN HCL 1,000 MG in SODIUM CHLORIDE 0.9% 250 ML IV SCH ×2 (03:18→15:56)
[2023-04-29] MEDS: PIPERACILLIN/TAZOBACTAM 4.5 GM in DEXTROSE 5% 100 ML IV SCH ×2 (05:25→12:39)
[2023-04-29] MEDS: LEVOTHYROXINE SODIUM 112 MCG TABLET PO SCH (05:26)
[2023-04-29 07:15] LABS: Hematocrit (blood only) 36.5 % (37.0-47.0); Hemoglobin 12.9 g/dl (12.0-16.0); Mean Corpuscular Hemoglobin 31.3 pg (25.0-34.0); Mean Corpuscular Hgb Conc 35.3 g/dL (32.0-36.0); Mean Corpuscular Volume 88.6 fL (80.0-100.0); Mean Platelet Volume 9.4 fL (9.4-12.4); Platelet Count 242 K/uL (130-400); RDW Coefficient of Variation 11.8 % (11.5-14.5); Red Blood Count 4.12 M/uL (4.20-5.40); White Blood Count 6.92 K/ul (4.8-10.8)
[2023-04-29] MEDS: ACETAMINOPHEN 500 MG TAB PO SCH ×2 (08:04→16:49)
[2023-04-29] MEDS: INSULIN ASPART PER UNIT CHARGE SC SCH ×3 (08:04→17:03)
[2023-04-29] MEDS: ROSUVASTATIN CALCIUM 10 MG TAB PO SCH (08:04)
[2023-04-29] MEDS: POTASSIUM CHLORIDE 10 MEQ TABCR PO SCH (08:04)
[2023-04-29 08:41] LABS: BUN Creatinine Ratio 18.1 (10-20); Calcium 9.5 mg/dl (8.6-10.3); Creatinine Clr Calc Pharmacy 72.9 ml/min; Est GFR (African American) 87.6 ml/min; Est GFR (Non-African American) 75.6 ml/min; Potassium 3.8 mmol/L (3.5-5.1)
[2023-04-29] MEDS ORDERED: LANTUS PER UNIT CHARGE SQ SCH (09:00)
--- NOTE | 2023-04-29 12:06 | Discharge Summary ---
Date of Service April 29, 2023 Admission HPI Per Admitting Provider Pt is 62 yo F with PMH T1DM with peripheral neuropathy, HLD, hypothyroidism, questionable history of DVTs presenting with foot pain. Pt reports 2 weeks prior she cut her R first toenail and entire nail was accidentally removed. She did have bleeding immediately afterward but cleaned the wound with peroxide and applied triple antibiotic cream. She has had progressive RLE pain spanning from R great toe to dorsum to medial aspect of leg up to mid-cheek, with associated erythema + warmth + swelling of R great toe and up to posterior R calf. Toe wound has had purulent discharge as well. She denies fever, chills, fatigue. Able to ambulate albeit with moderate-severe pain. Symptoms progressed until she came to ER today. Pt arrived to ER hemodynamically stable. Initial evaluation significant for WBC 11.3, K 3.3, glucose 268. CBC, CMP, lactate otherwise negative. Negative venous Doppler. XR R foot suggestive of acute osteomyelitis of the distal tuft of the distal phalanx of R great toe. ER interventions include vancomycin and Zosyn. At present, pt reports no foot pain at rest but moderate 7/10 pain when moving the extremity or pressing on it. She denies any new complaints. Principal Diagnosis diabetic foot Discharge Exam The patient is awake, alert and oriented 3, well developed and well nourished, normocephalic and atraumatic, lying in bed and in no acute distress. HEENT--PERRL, EOMI, mucous membranes and oropharynx mildly dry Neck--supple. No JVD. No bruits. Thyroid normal, trachea midline, no adenopathy. Heart--normal S1 and S2. No murmurs, rubs or gallops. Lungs--clear bilaterally, no respiratory distress, no accessory muscle use. Abdomen--normal bowel sounds and soft. Mild epigastric and left sided abdominal pain Extremities--no cyanosis or clubbing. right foot in bandage Dermatologic--normal skin turgor, normal color, no abnormal lymph nodes, no rash. Neurologic--cranial nerves II through XII grossly intact. Rheumatologic--normal range of motion. Psychiatric--normal affect. Discharge Data Allergies Allergy/AdvReac Type Severity Reaction Status Date / Time tetanus toxoid, adsorbed AdvReac Intermediate SWELLING Verified 02/26/23 15:42 AT SITE AND REDNESS Consultations 04/25/23 19:37 ED Decision to Admit Stat 04/25/23 20:18 Consult Podiatry Routine Procedures Performed Operation Date: 04/26/23 07:00 Actual Procedures p Right Hallux Amputation (Right) - Jacky George DPM, MS Ordered Studies 04/25/23 14:33 US venous doppler LE RT Urgent 04/25/23 20:18 MRI Foot [MR foot RT wo/w con] Routine 04/25/23 20:19 MR ankle RT wo/w con Routine 04/27/23 06:56 US arterial duplex LE BI Routine Hospital Course (1) Diabetic foot ulcer with osteomyelitis: -Diabetic patient with toe wound and progressive LE pain, associated leukocytosis + XR and MRI findings suggestive of osteomyelitis -she is now s/p foot amputation -Per Podiatry, clean margins were obtained -Wound cultures growing Staph, lobato sensitive -Blood cultures negative -Will discharge her on PO Clindamycin 300mg BID for 7 days -Follow up with Podiatry outpatient (2) Hypokalemia: -K 3.3 on admission -Repleting with oral K -Trend BMP (3) Lower extremity edema: -Suspect chronic venous stasis with some exacerbation from acute soft tissue infection of R foot -Holding home furosemide given borderline-low BP 103/67 (4) Hyperglycemia due to type 1 diabetes mellitus: -02/2023 A1C 6.5% -continue insulin home regimen. Glargine 15units BID, sliding scale (5) Dyslipidemia: -Continue rosuvastatin (6) Hypothyroidism: -Continue levothyroxine Plan FENGI: DM1 Code status: Full DVT prophylaxis: Lovenox 40 mg daily Isolation: None Disposition: d/c home Total Time Total Time Spent Total Time Spent (In Minutes): 35 Discharge Plan Discharge Items Patient Disposition: Home - Self-Care Reason For Visit: FOOT PAIN, SUSPECTED OSTEOMYELITIS Discharge Diagnosis: diabetic foot Activity: Resume your previous activity Non-emergency contact: Primary Care Provider Call non-emergency contact if: you have any medication questions Follow-up/Referrals: Radha Briseno CRNP [Primary Care Provider] - Jacky George DPM, MS [Physician] - (Please call to make a follow up appointment with Dr. George) Diet: Carb Consistent or DM2 Addtl Attending Provider Instructions: please make appointment to follow up with Dr Geogre for your wound care Pending Studies at Discharge: No Stand-Alone Forms: My [facility], Smoking Cessation Medications and DC Order Prescriptions: New clindamycin HCl 300 mg capsule 300 mg PO BID 7 Days Qty: 14 0RF Continued (DME) pen needle, diabetic [Comfort EZ Pen Decker] 32 gauge x 5/16" needle See Rx Instructions .Route Qty: 100 5RF Rx Instructions: Use 2 per day (DME) Dexcom G7 Sensor Device See Rx Instructions .ROUTE .MEDSUPPLY Qty: 9 3RF Rx Instructions: change every 10 days levothyroxine 112 mcg tablet 112 mcg PO DAILY Qty: 30 5RF rosuvastatin [Crestor] 10 mg tablet 10 mg PO DAILY Qty: 30 3RF Rx Instructions: Take one tablet by mouth once daily. potassium chloride 10 mEq tablet extended release 10 meq PO DAILY Qty: 30 2RF furosemide [Lasix] 40 mg tablet 40 mg PO DAILY Qty: 60 5RF Rx Instructions: Take one tablet by mouth once daily may take an additional 40mg if edema persists after 8-12 hours. insulin aspart U-100 [Novolog U-100 Insulin aspart] 100 unit/mL solution 8 unit subcut .COMPLEX Qty: 12 0RF Rx Instructions: 8 units subcutaneously with each meal and sliding scale dosing up to 40 units daily dose. (DME) blood-glucose meter [OneTouch Ultra2 Meter] Misc See Rx Instructions .Route Rx Instructions: As directed (DME) OneTouch Ultra Test Strip See Rx Instructions .Route Rx Instructions: As directed (DME) Dexcom G6 Transmitter Device See Rx Instructions .Route Rx Instructions: As directed Levemir FlexPen 100 unit/mL (3 mL) insulin pen 11 unit SUBCUT BID Qty: 30 3RF Rx Instructions: Inject 11 units into the abdomen twice daily. (DME) Dexcom G7 Foreign Service Teacher Misc See Rx Instructions .ROUTE .MEDSUPPLY Qty: 1 5RF Rx Instructions: As directed Discharge Orders: Discharge Order (Routine); Ordered 04/29/23 Ordered By: Augusto Altamirano/Other Patient Handouts: Diabetes Foot Infections Tx, Diabetes: Keeping Feet Healthy, Diabetes: Inspecting Your Feet, Your Diabetes Foot Care Program Admission Data Admit Date/Time: 04/25/23 20:18 Attending Provider: Augusto Nowak Admit Provider: Farhana Nicholson Primary Care Provider: Radha Briseno Other Providers: Rito Berrios ; Huber Gayle ; Jacky George Coding Level of Care Code 16166 INP/OBS DISCH >30 MIN Diagnoses Diabetic foot ulcer with osteomyelitis E11.621; E11.69; L97.509; M86.9 Hypokalemia E87.6 Lower extremity edema R60.0 Hyperglycemia due to type 1 diabetes mellitus E10.65 Dyslipidemia E78.5 Hypothyroidism E03.9 Time Spent (min) 35
--- OUTSIDE RECORDS SUMMARY | 2023-04-30 20:50 | External Medical Summary ---
Author Name Unknown Address Unknown Organization [id number][facility] [address] [place] [address] Laboratory Report Ordering Provider Test Date Status HY,DEPAMPHILIS 07/05/2022 06:15:00 Final Observation Date Value Abnormality Reference (Units ) Status WBC, Total 07/05/2022 06:15:00 5.23 4.00-10.8 0 (K/uL) Final RBC 07/05/2022 06:15:00 4.37 3.85-5.15 (M/uL) Final Hemoglobin 07/05/2022 06:15:00 13.9 12.0-15.3 (g/dL) Final HCT 07/05/2022 06:15:00 41.9 36.0-45.2 (%) Final MCV 07/05/2022 06:15:00 95.9 81.5-97.5 (fL) Final MCH 07/05/2022 06:15:00 31.8 27.0-34.0 (pg) Final MCHC 07/05/2022 06:15:00 33.2 32.0-36.0 (g/dL) Final RDW 07/05/2022 06:15:00 14.1 11.5-15.5 (%) Final Platelets 07/05/2022 06:15:00 197 140-400 (K /uL) Final MPV 07/05/2022 06:15:00 11.0 6.6-11.1 ( fL) Final Performing Location [facility] [address] [place] [address]
--- OUTSIDE RECORDS SUMMARY | 2023-04-30 20:50 | External Medical Summary | Continuity of Care Document ---
Author Name Unknown Organization [facility] [address] [facility] [place] [address] Address [address] [id number] Care Team Providers Care Professor Of Musicology Name Role Phone Rosa Isela Saba Primary Care Physician [phone] [id number] Date(s): 02/28/23 - 02/28/23 [facility] [address] [facility] [address] [facility] Practice Site [address] [facility], [address] [place], [place] [address]Einvy [phone] Encounter Diagnosis Thenar muscle atrophy of left hand(Discharge Diagnosis) - 02/28/23 Discharge Disposition: Home or Self Care Attending Physician: MD Johnny, Thanh B Allergies, Adverse Reactions, Alerts No Known Medication Allergies Assessment and Plan Extracted from: Title:L thump weakness Author:DO Starr Gary Date :02/28/23 1.Thenar muscle atrophy of left hand Undiagnosed problem Goal:Resolution Data:unique tests ordered:EMG Plan: Atrophy of the left thenar eminence is conducive of aentrapment of the recurrent branch of themedian nerve. She has no sensory deficitsnoted on exam. This is indicative of an entrapment of therecurrent branch in the carpal tunnel. We will order an EMG for further evaluation. If test returns positive, likely referral to Ortho forcarpal tunnel releaseof the left hand. In meantime, instructed the patient to utilizea tennis ball and exercise her thumb as to not lose any more muscle toneif able. We will put an urgent studyas this should be done sooner rather than later to reduce loss of muscle tone. Medications furosemide 40 mg oral tablet Start: 09/21/22 15:32:00 EST Start Date: 09/21/22 Status: Ordered insulin aspart 100 units/mL injectable solution Start: 09/21/22 15:32:00 EST Start Date: 09/21/22 Status: Ordered Jardiance 25 mg oral tablet Start: 09/21/22 15:32:00 EST Start Date: 09/21/22 Status: Ordered Lantus Solostar Pen 100 units/mL subcutaneous solution Start: 09/21/22 15:33:00 EST, 10 unit =, subQ, Daily Start Date: 09/21/22 Status: Ordered Levemir FlexTouch 100 units/mL subcutaneous solution Start: 09/21/22 15:32:00 EST Start Date: 09/21/22 Status: Ordered levothyroxine 112 mcg (0.112 mg) oral tablet Start: 09/21/22 15:32:00 EST Start Date: 09/21/22 Status: Ordered multivitamin Start: 02/28/23 9:40:00 EDT, 1 tab, PO, Daily Start Date: 02/28/23 Status: Ordered Mental Status 02/28/23 Barriers to Learning one year None evide nt Mandatory Health Literacy Documentation Yes Health Literacy Communication Barriers N ever Primary Language Armenian Problem List Condition Confirmation Course Effective Dates Status Health St atus Informant Left patella fracture Confirmed Active Diagnosis Diagnosis Type Effective Dates Health Status Cl inical Service Informant Thenar muscle atrophy of left hand Discharge Diagnosis 02/28/23 Social History Social History Type Response Smoking Status Never smoked cigaret albina Sex FCM Outpt Note * MD Turner Mark B: MODIFY MD Turner Mark B: MODIFY Event Display: FCM Outpt Note Authored Date: [id number] Chief Complaint pt stated about 2wks ago she began having difficulty with her left thumb. Unable to use it completely. denies injury and pain. History of Present Illness Patient is a 62-year-old female presents the clinic for chief complaint ofthumb stiffness. Reports that has been going on for the past 2 weeks. She is right-handed. She has not been dropping any objects. She has noticed weakness in opposition of her left thumb. No sensory deficits that she is aware of. No pain anywhere. Has not debilitated her much as she utilizes her right hand for the majority of activitiessuch as ADLs and IADLs. Otherwise no other complaints at this time. Review of Systems Per HPI Physical Exam Vitals & Measurements Pulse: 86 BPM PHQ2 Data(Data Documented on:02/28/2023 09:40) Emotional health assessment NEGATIVE General: Well-developed, well-nourished patient, in no acute distress, pleasant and normal affect, intact memory. HEENT: No scleral injection or discharge. Moist mucous membranes. Clear oropharynx. Lungs: Clear to auscultation bilaterally with good effort. Cardiac: Regular rate and rhythm. No murmurs. No extremity edema. MSK:atrophy of the left thenar eminence. Weakness in opposition of the left thumb. No sensory deficits noted. Assessment/Plan 1.Thenar muscle atrophy of left hand Undiagnosed problem Goal:Resolution Data:unique tests ordered:EMG Plan: Atrophy of the left thenar eminence is conducive of aentrapment of the recurrent branch of themedian nerve. She has no sensory deficitsnoted on exam. This is indicative of an entrapment of therecurrent branch in the carpal tunnel. We will order an EMG for further evaluation. If test returns positive, likely referral to Ortho forcarpal tunnel releaseof the left hand. Inmeantime, instructed the patient to utilizea tennis ball and exercise her thumb as to not lose any more muscle toneif able. We will put an urgent studyas this should be done sooner rather than later to reduce loss of muscle tone. Attestation I saw the patient and confirmed the snow portions of the history and physical exam and agree with the above impression and plan. Problem List/Past Medical History Ongoing Left patella fracture Medications empagliflozin(Jardiance 25 mg oral tablet) furosemide(furosemide 40 mg oral tablet) insulin aspart(insulin aspart 100 units/mL injectable solution) insulin detemir(Levemir FlexTouch 100 units/mL subcutaneous solution) insulin glargine(Lantus Solostar Pen 100 units/mL subcutaneous solution), 10 unit, subQ, Daily levothyroxine(levothyroxine 112 mcg (0.112 mg) oral tablet) multivitamin, 1 tab, PO, Daily Allergies No Known Medication Allergies Social History Smoking Status Never smoked cigarettes Recommendations Health Maintenance Pending(in the next year) Due Adult Influenza Vaccine due02/24/23and every 1year Adult COVID-19 Vaccination due02/28/23Unknown Frequency Adult Tdap/Td Vaccine due02/28/23Unknown Frequency Breast Cancer Screening due02/28/23Unknown Frequency Cervical Cancer Screening due02/28/23Unknown Frequency Colorectal Cancer Screening due02/28/23Unknown Frequency Hepatitis C Screening due02/28/23One-time only Lipid Screening due02/28/23Unknown Frequency Shingles Vaccine due02/28/23One-time only Due In Future Body Mass Index not due until09/21/23and every 1year Satisfied(in the past 1 year) Satisfied Body Mass Index on09/21/22.Satisfied by JAIME Soriano Kelley Electronic Signature on File Electronically Reviewed/Signed by: David Starr DO Author Signature Dt/Tm:02/28/2023 10:01 AM Resident Department of Family Medicine Electronically Reviewed/Signed by: Thanh Turner MD Cosigner Signature Dt/Tm: 02/28/2023 10:05 AM Department of Family Medicine GF Patient Care team information Care Team Personnel Name: DO Saba Elizabeth Marie Position: Referring Member Role: Primary Care Provider Address: Address: [address] [address] [place]
--- OUTSIDE RECORDS SUMMARY | 2023-04-30 20:50 | External Medical Summary | Continuity of Care Document ---
Author Name Unknown Organization [facility] [address] [place], [place] [address] Address [address] [place] [id number] Care Team Providers Care Board Filler Name Role Phone Rosa Isela Saba Primary Care Physician [phone] [id number] Date[facility]s): 11/06/22 - 11/06/22 [facility] [address] [place], [place] [address]A [facility] [address] [address] Encounter Diagnosis Left patella fracture(Discharge Diagnosis) - 11/06/22 Discharge Disposition: Home or Self Care Attending Physician: MD Niki, Erik Ogden Allergies, Adverse Reactions, Alerts No Known Medication Allergies Medications furosemide 40 mg oral tablet Start: [...] 15:32:00 EST Start Date: 09/21/22 Status: Ordered Mental Status 11/06/22 Barriers to Learning one year None evide nt Mandatory Health Literacy Documentation Yes Health Literacy Communication Barriers N ever Primary Language Nauruan Problem List Condition Confirmation Course Effective Dates Status Health St atus Informant Left patella fracture Confirmed Active Diagnosis Diagnosis Type Effective Dates Health Status Cl inical Service Informant Left patella fracture Discharge Diagnosis 11/06/22 Social History Social History Type Response Smoking Status Never smoked cigaret albina Sex Patient Care team information Personnel Name: DO Saba Elizabeth Marie Address: Address: [address]
--- OUTSIDE RECORDS SUMMARY | 2023-04-30 20:50 | External Medical Summary | Summary of Care ---
Author Name Unknown Organization [place] [address] Care Team Providers Care Sales Development Coordinator Name Role Phone Boby Bowie MD Primary Care Provider Reason for Visit * Reason Onset Date Comments Education 08/01/2022 Encounter Details Date Type Department Care Team Description 08/01/2022 Telephone [facility] Gayle Calderon, Health Tool Procurement Coordinator Education Allergies No known active allergiesdocumented as of this encounter (statuses as of 08/01/2022) Medications Medication Sig Dispensed Refills Start Date End Date Status TEST STRIPS FOR GLUCOMETER-3 STRPIndications:DM type 2, not at goal (HCC) as directed 50 0 08/04/2002 Active LANTUS 100 U/ML SC SOLNIndications:DM type 2, not at goal (HCC) 30 units SQ at bedtime 1 vial 5 09/29/2002 Active KLOR-CON 20 MEQ PO PACK two tablets by mouth daily 0 Active LISINOPRIL 20 MG PO TABS one by mouth daily 0 Active ZANTAC 300 MG PO TABS one by mouht daily 0 Active LEVOTHYROXINE SODIUM 137 MCG OR TABS one by mouth daily 0 Active METFORMIN HCL 1000 MG PO TABS one by mouth twice a day 0 Active ASPIRIN 81 MG PO TABS one by mouth daily 0 Active LASIX 40 MG PO TABS one by mouth daily 0 Active HUMALOG 100 UNIT/ML SUBQ SOLN 15 units subcutaneously three times a day 0 Active documented as of this encounter (statuses as of 08/01/2022) Active Problems Problem Noted Date Dyslipidemia, goal to be determined 10/2002 Hypothyroidism 04/22/2001 DM type 2, not at goal 04/22/2001 UTERINE ENDOMETRIOSIS, history of uterine cancer, history of documented as of this encounter (statuses as of 08/01/2022) Social History Tobacco Use Types Packs/Day Years Used Date Smoking Tobacco: Never Smokeless Tobacco: Never Alcohol Use Standard Drinks/Week Comments Yes 0 (1 standard drink = 0.6 oz pur e alcohol) rare Sex Assigned at Date Recorded Not on file documented as of this encounter Miscellaneous Notes * Telephone Encounter - Gayle Calderon Health Tool Procurement Coordinator - 08/01/2022 9:44 AM EST Reviewed what health coaching can offer in terms of diabetes Pt states that she is seeing an stitch bonding machine tender helper on Sep 05 for diabetes Declined health coaching services at this time Says that she would like to wait to see what they stitch bonding machine tender helper has to say about diabetes interventions Discussed opportunities for referral to outpatient dietitian Encouraged pt to ask about possible referral for outpatient dietitian at appointment No f/u needed at this time. Will close documented in this encounter Plan of Treatment Health Maintenance Due Date Last Done Comments DXA Scan 1960 Hepatitis B (1 of 3 - 3-dose series) 1960 COVID-19 Vaccine (#1) 04/21/1961 Pneumococcal Vaccine: Pediatrics (0 to 5 Years) and At-Risk Patients (6 to 64 Years) (1 - PCV) 1966 Depression Screening, Annual for Pts 12 and Over 1972 HIV Screening 1975 DIABETES-FOOT EXAM 1978 Hepatitis C Screening 1978 PAP SMEAR-EVERY 3 YRS,AGES 21-65 04/22/2004 04/22/2001 Cologuard: Ages 45-75 2005 Colonoscopy: Ages 45-75 2005 Colorectal Cancer Screening (Colonoscopy 10 Years; Sigmoidoscopy 5 Years; Cologuard 3 Years; FOBT 1 Year): Ages 45-75 2005 FOBT: Ages 45-75 2005 Sigmoidoscopy: Ages 45-75 2005 Mammogram 2010 Zoster Vaccines (1 of 2) 2010 DIABETES-EYE EXAM 11/23/2011 11/22/2010 Alb / Creat Ratio 10/24/2017 10/24/2016 TSH FOR THYROID MEDICATION MONITORING YEARLY 04/17/2018 04/17/2017, 10/24/2016, 03/05/2001, Additional history exists Lipid Panel 04/17/2022 04/17/2017, 01/2017, 10/24/2016 Influenza Vaccine (FLU shot) (#1) 2022 DIABETES-HGBA1C EVERY 6 MONTHS 12/22/2022 06/23/2022, 04/17/2017, 01/30/2017, Additional history exists GFR - Renal Function 07/05/2023 07/05/2022, 06/28/2022, 05/15/2017, Additional history exists GARDASIL-HPV IMMUNIZATION SERIES Aged Out No longer eligible based on patient's age to complete this topic MENINGOCOCCAL (MENACTRA/MENVEO) Aged Out No longer eligible based on patient's age to complete this topic documented as of this encounter Medical Devices Not on filedocumented as of this encounter Care Teams Sales Development Coordinator Relationship Specialty Start Date End Date Boby Bowie MD PCP - General 11/22/10 documented as of this encounter
--- OUTSIDE RECORDS SUMMARY | 2023-04-30 20:50 | External Medical Summary ---
Author Name Unknown Address [facility] [place] [address] Phone Organization [id number]:[facility] [address] [id number] Laboratory Report Ordering Provider Test Date Status RENNY SPEAR 05/15/2017 09:45:00 Final Observation Date Value Abnormality Reference Status BUN 05/16/2017 00:11 13 6-20 Fin al Creatinine 05/16/2017 00:11 0.8 0.5-1.0 Fi nal Performing Location [facility] [address] [id number]
--- OUTSIDE RECORDS SUMMARY | 2023-04-30 20:50 | External Medical Summary ---
Author Name Unknown Address [address] [facility] [place] [address] Phone Organization [id number]:[facility] [address] [facility] [address] Laboratory Report Ordering Provider Test Date Status RENNY SPEAR 04/17/2017 10:00:00 Final Observation Date Value Abnormality Reference Status WBC, Total 04/18/2017 00:13 7.35 4.00-10.80 F inal RBC 04/18/2017 00:13 4.17 3.85-5.15 Fin al Hemoglobin 04/18/2017 00:13 13.4 12.0-15.3 Fi nal HCT 04/18/2017 00:13 39.2 36.0-45.2 Fin al MCV 04/18/2017 00:13 94.0 81.5-97.5 Fin al MCH 04/18/2017 00:13 32.1 27.0-34.0 Fin al MCHC 04/18/2017 00:13 34.2 32.0-36.0 Fin al RDW 04/18/2017 00:13 13.2 11.5-15.5 Fin al Platelets 04/18/2017 00:13 229 140-400 Fin al MPV 04/18/2017 00:13 9.9 6.6-11.1 Fin al Segs 04/18/2017 00:13 50.5 40-75 Fin al Lymphs % 04/18/2017 00:13 32.4 18-42 Fin al Monos 04/18/2017 00:13 10.5 1-11 Fin al Eosinophils 04/18/2017 00:13 4.4 0-6 F inal Basos 04/18/2017 00:13 1.1 0-2 Fin al Immature Granulocyte, Percent 04/18/2017 00:13 1.1 0-2 Final Absolute Segs 04/18/2017 00:13 3.72 1.8-7.7 Final Lymphs, absolute 04/18/2017 00:13 2.38 1.0-4. 8 Final Monos, Abs 04/18/2017 00:13 0.77 0.0-1.1 Fi nal Eos, Abs 04/18/2017 00:13 0.32 0.0-0.7 Fin al Nainaos, Abs 04/18/2017 00:13 0.08 0.0-0.2 Fi nal Immature Granulocytes, Number 04/18/2017 00:13 0.08 0.0-0.2 Final Performing Location [facility] [address] [facility] [place] [place] [address]
--- OUTSIDE RECORDS SUMMARY | 2023-04-30 20:50 | External Medical Summary ---
Author Name Unknown Address [address] [id number] Phone Organization [id number]:[facility] [address] [id number] Laboratory Report Ordering Provider Test Date Status MAJ BEATRISGLADIS 04/17/2017 10:00:00 Final Observation Date Value Abnormality Reference Status GGT 04/18/2017 02:25 7 0-40 Fin al Performing Location [facility] [address] [facility] [address]
--- OUTSIDE RECORDS SUMMARY | 2023-04-30 20:50 | External Medical Summary ---
Author Name Unknown Address [facility] [address] [place] [address]122 Phone Organization K01:[place] [address] [address] [place] [address] [id number] Laboratory Report Ordering Provider Test Date Status RENNY SPEAR 04/17/2017 10:00:00 Final Observation Date Value Abnormality Reference Status TSH 04/18/2017 06:02 3.71 0.27-4.2 Gibson al Performing Location [address] [address]
--- OUTSIDE RECORDS SUMMARY | 2023-04-30 20:50 | External Medical Summary | Continuity of Care Document ---
Author Name Unknown Organization [facility] [address] [id number] Address [address] [place] [place] [phone] Care Team Providers Care Ticket Writer Name Role Phone Rosa Isela Saba Primary Care Physician [phone] [id number]14[facility]23 - 03/14/23 [facility] [address] [id number] [facility] [address] [address] Encounter Diagnosis Left carpal tunnel syndrome(Discharge Diagnosis) - 03/14/23 Cubital tunnel syndrome on left(Discharge Diagnosis) - 03/14/23 Discharge Disposition: Home or Self Care Attending Physician: MD Bharathi, Rasta Casey Referring Physician: MD Johnny, Thanh Arguello Allergies, Adverse Reactions, Alerts No Known Medication [...] Start Date: 02/28/23 Status: Ordered Mental Status 03/14/23 Barriers to Learning one year None evide nt Mandatory Health Literacy Documentation Yes Health Literacy Communication Barriers N ever Primary Language Danish Problem List Condition Confirmation Course Effective Dates Status Health St atus Informant Left carpal tunnel syndrome Confirmed Active Cubital tunnel syndrome on left Confirmed Active Left patella fracture Confirmed Active Diagnosis Diagnosis Type Effective Dates Health Status Cl inical Service Informant Left carpal tunnel syndrome Discharge Diagnosis 03/14/23 Cubital tunnel syndrome on left Discharge Diagnosis 03/14/23 Social History Social History Type Response Smoking Status Never smoked cigaret albina Sex Patient Care team information Care Team Personnel Name: DO Saba Elizabeth Marie Position: Referring Member Role: Primary Care Provider Address: Address: [address] [address]
--- OUTSIDE RECORDS SUMMARY | 2023-04-30 20:50 | External Medical Summary ---
Author Name Unknown Address [facility] [address] Phone Organization K01:[place] [address] [id number] Laboratory Report Ordering Provider Test Date Status RENNY SPEAR 04/17/2017 10:00:00 Final Observation Date Value Abnormality Reference Status T4, Free 04/18/2017 06:02 1.52 0.9-1.7 Gibson de leon Performing Location [place] [address] [address] [facility] [address]
--- OUTSIDE RECORDS SUMMARY | 2023-04-30 20:50 | External Medical Summary ---
Author Name Unknown Address Unknown Organization [id number]:[facility] [address] [place] [address] Laboratory Report Ordering Provider Test Date Status HY,DEPAMPHILIS 07/05/2022 06:15:00 Final Observation Date Value Abnormality Reference (Units ) Status BUN 07/05/2022 06:15:00 18 6-20 (mg/dL) Final Creatinine 07/05/2022 06:15:00 0.8 0.5-1.0 (mg/dL) Final Glomerular filtration rate/1.73 sq M.predicted [Volume Rate/Area] in Serum, Plasma or Blood by Creatinine-based formula (CKD-EPI) 07/05/2022 06:15:00 84 >=60 (mL/min) Final Performing Location [facility] [address] [place] [address]
--- OUTSIDE RECORDS SUMMARY | 2023-04-30 20:50 | External Medical Summary ---
Author Name Unknown Address [facility] [address] [place] [phone] Phone Organization K01:[facility] [address] [id number] Laboratory Report Ordering Provider Test Date Status JUAREZ SPEARMIKIE 04/17/2017 10:00:00 Final Observation Date Value Abnormality Reference Status Fasting status - Reported 04/17/2017 23:49 NOT PROVIDED Final Triglyceride 04/18/2017 02:25 109 <200 Final Performing Location [address] [address]
--- OUTSIDE RECORDS SUMMARY | 2023-04-30 20:50 | External Medical Summary | Continuity of Care Document ---
Author Name Unknown Organization [place] [address] Address [address] [place] [phone] Care Team Providers Care Manager Access Name Role Phone Rosa Isela Saba Primary Care Physician [phone] [id number] Date(s): 09/21/22 - 09/21/22 [facility] [address] [place] [address] [address] [facility] [address] [address] Encounter Diagnosis Left patella fracture(Discharge Diagnosis) - 09/21/22 Discharge Disposition: Home or Self Care Attending Physician: MD Prince Paul S Allergies, Adverse Reactions, Alerts No Known Medication Allergies Assessment and Plan Extracted from: Title:Orthopaedics Office Visit Note Author:Jesse us MD, Paul S Date:09/21/22 1.Left patella fracture I discussed my findings with the patient. She will not be able to work. I recommended that she weight-bear as tolerated in a knee immobilizer which we provide with her today. Use crutches as necessary. Remove the brace only for bathing as instructed. She is not to be doing any kind of forceful knee extensiongetting up out of a chairat [employer]. She can bend the knee few degrees but we do notwant her doing any kind of significant bending at this time. Tylenol NSAID ice elevation. I discussed the risk offurther damaging the fracture and thepatella coming apart and needing surgery. Follow-up with me in 3 weeks for recheck. X-rays AP lateralsunrise. She is on aspirinand will continue that for DVT prophylaxis. She can do quad sets leg raisesgluteal squeezes and ankle pumps. Instructed. Medications furosemide 40 mg oral tablet Start: [...] Start Date: 09/21/22 Status: Ordered Mental Status 09/21/22 Barriers to Learning one year None evide nt Mandatory Health Literacy Documentation Yes Health Literacy Communication Barriers N ever Primary Language [place] Citizen Problem List Condition Confirmation Course Effective Dates Status Health St atus Informant Left patella fracture Confirmed Active Diagnosis Diagnosis Type Effective Dates Health Status Cl inical Service Informant Left patella fracture Discharge Diagnosis 09/21/22 Vital Signs Most recent to oldest [Reference Range]: 1 Height 161.5 cm (09/21/22 3:30 PM) Patient Weight 72 kg (09/21/22 3:30 PM) Body Mass Index 27.6 kg/m2 (09/21/22 3:30 PM) Social History Social History Type Response Smoking Status Never smoked cigaret albina Sex Patient Care team information Personnel Name: DO Saba Elizabeth Marie Address: Address: [address] [address]
--- OUTSIDE RECORDS SUMMARY | 2023-04-30 20:50 | External Medical Summary | Continuity of Care Document ---
Author Name Unknown Organization [facility] [address] [place], [place] [address]A Address [address] [place] [id number] Care Team Providers Care Civil Drafter Name Role Phone Rosa Isela Saba Primary Care Physician [phone] [facility] [id number] Date(s): 10/09/22 - 10/09/22 [facility] [address] [id number] [facility] [address] [address] Encounter Diagnosis Left patella fracture(Discharge Diagnosis) - 10/09/22 Discharge Disposition: Home or Self Care Attending [...] Start Date: 09/21/22 Status: Ordered Mental Status 10/09/22 Barriers to Learning one year None evide nt Mandatory Health Literacy Documentation Yes Health Literacy Communication Barriers N ever Primary Language Cape Verdean Problem List Condition Confirmation Course Effective Dates Status Health St atus Informant Left patella fracture Confirmed Active Diagnosis Diagnosis Type Effective Dates Health Status Cl inical Service Informant Left patella fracture Discharge Diagnosis 10/09/22 Social History Social History Type Response Smoking Status Never smoked cigaret albina Sex Patient Care team information Personnel Name: DO Saba Elizabeth Marie Address: Address: [address]
--- OUTSIDE RECORDS SUMMARY | 2023-04-30 20:50 | External Medical Summary ---
Author Name Unknown Address Unknown Organization K09:[facility] [place] [address] Laboratory Report Ordering Provider Test Date Status HY,DEPAMPHILIS 06/28/2022 05:40:00 Final Observation Date Value Abnormality Reference (Units ) Status BUN 06/28/2022 05:40:00 14 6-20 (mg/dL) Final Creatinine 06/28/2022 05:40:00 0.9 0.5-1.0 (mg/dL) Final Glomerular filtration rate/1.73 sq M.predicted [Volume Rate/Area] in Serum, Plasma or Blood by Creatinine-based formula (CKD-EPI) 06/28/2022 05:40:00 77 >=60 (mL/min) Final Performing Location [facility] [place] [address]
--- OUTSIDE RECORDS SUMMARY | 2023-04-30 20:50 | External Medical Summary | Summary of Care ---
Author Name Unknown Organization [facility] Address [address] [place] [address] Phone [phone] Care Team Providers Care Commercial Title Examiner Name Role Phone Rosa Isela Saba Primary Care Provider + Reason for Visit * Reason Onset Date Comments case management 11/06/2022 Encounter Details Date Type Department Care Team Description 11/06/2022 Community Living Specialist Telephone Care Coordination [address] [place] [address] Mahi Gaona, biosolids management technician Allergies No known active allergiesdocumented as of this encounter (statuses as of 11/06/2022) Medications Medication Sig Dispensed Refills Start Date [...] as of this encounter (statuses as of 11/06/2022) Active Problems Problem Noted Date Dyslipidemia, goal to be determined 10/2002 Hypothyroidism 04/22/2001 DM type 2, not at goal 04/22/2001 UTERINE ENDOMETRIOSIS, history of uterine cancer, history of documented as of this encounter (statuses as of 11/06/2022) Social History Tobacco Use Types Packs/Day Years Used Date Smoking Tobacco: Never Smokeless Tobacco: Never Alcohol Use Standard Drinks/Week Comments Yes 0 (1 standard drink = 0.6 oz pur e alcohol) rare Sex Assigned at Date Recorded Not on file documented as of this encounter Miscellaneous Notes * Telephone Encounter - Mahi Gaona RN - 11/06/2022 5:11 PM EDT 1. Follow-up Routine 2. Attempted Phone Call First Attempt 3. Call Unanswered Left Voicemail 4. Plan To attempt Follow-up documented in this encounter Plan of Treatment Health Maintenance Due Date Last Done Comments DXA Scan 1960 COVID-19 Vaccine (#1) 04/21/1961 Pneumococcal Vaccine: Pediatrics (0 to 5 Years) and At-Risk Patients (6 to 64 Years) (1 - PCV) 1966 Depression Screening, Annual for Pts 12 and Over 1972 HIV Screening 1975 DIABETES-FOOT EXAM 1978 Hepatitis C Screening 1978 Mammogram 2000 Cologuard: Ages 45-75 2005 Colonoscopy: Ages 45-75 2005 Colorectal Cancer Screening (Colonoscopy 10 Years; Sigmoidoscopy 5 Years; Cologuard 3 Years; FOBT 1 Year): Ages 45-75 2005 FOBT: Ages 45-75 2005 Sigmoidoscopy: Ages 45-75 2005 Zoster Vaccines (1 of 2) 2010 DIABETES-EYE EXAM 11/23/2011 11/22/2010 Albumin/Creatinine Ratio 10/24/2017 10/24/2016 TSH FOR THYROID MEDICATION MONITORING YEARLY 04/17/2018 04/17/2017, 10/24/2016, 03/05/2001, Additional history exists Lipid Panel 04/17/2022 04/17/2017, 01/2017, 10/24/2016 Influenza Vaccine (FLU shot) (#1) 2022 HgA1C 12/22/2022 06/23/2022, 03/28, 01/30/2017, Additional history exists GFR - Renal Function 07/05/2023 07/05/2022, 06/28/2022, 05/15/2017, Additional history exists GARDASIL-HPV IMMUNIZATION SERIES Aged Out No longer eligible based on patient's age to complete this topic Hepatitis B Aged Out No longer eligi ble based on patient's age to complete this topic MENINGOCOCCAL (MENACTRA/MENVEO) Aged Out No longer eligible based on patient's age to complete this topic documented as of this encounter Medical Devices Not on filedocumented as of this encounter Care Teams Commercial Title Examiner Relationship Specialty Start Date End Date Rosa Isela Saba, [address] [facility] [place] [id number] PCP - General Family Medicine 07/25/22 documented as of this encounter
--- OUTSIDE RECORDS SUMMARY | 2023-04-30 20:50 | External Medical Summary ---
Author Name Unknown Address [address] [place] [address] Phone Organization K01:[facility] [address] [id number] Laboratory Report Ordering Provider Test Date Status RENNY SPEAR 04/17/2017 10:00:00 Final Observation Date Value Abnormality Reference Status BUN 04/18/2017 02:25 10 6-20 Fin al Creatinine 04/18/2017 02:25 0.9 0.5-1.0 Fi nal Performing Location [facility] [address] [facility] [address]
--- OUTSIDE RECORDS SUMMARY | 2023-04-30 20:50 | External Medical Summary ---
Author Name Unknown Address Unknown Organization K09:[facility] [place] [address] Laboratory Report Ordering Provider Test Date Status HY,DEPAMPHILIS 06/28/2022 05:40:00 Final Observation Date Value Abnormality Reference (Units ) Status WBC, Total 06/28/2022 05:40:00 4.81 4.00-10.8 0 (K/uL) Final RBC 06/28/2022 05:40:00 4.08 3.85-5.15 (M/uL) Final Hemoglobin 06/28/2022 05:40:00 13.3 12.0-15.3 (g/dL) Final HCT 06/28/2022 05:40:00 39.2 36.0-45.2 (%) Final MCV 06/28/2022 05:40:00 96.1 81.5-97.5 (fL) Final MCH 06/28/2022 05:40:00 32.6 27.0-34.0 (pg) Final MCHC 06/28/2022 05:40:00 33.9 32.0-36.0 (g/dL) Final RDW 06/28/2022 05:40:00 14.4 11.5-15.5 (%) Final Platelets 06/28/2022 05:40:00 140 140-400 (K /uL) Final MPV 06/28/2022 05:40:00 10.3 6.6-11.1 ( fL) Final Performing Location [facility] [place] [address]
--- OUTSIDE RECORDS SUMMARY | 2023-04-30 20:51 | External Medical Summary ---
Author Name Unknown Address [facility] [address] [place] [phone] Phone Organization K01:[place] [address] [address] [facility] [address] Laboratory Report Ordering Provider Test Date Status JACQUES LAURA MD 10/24/2016 09:15:00 Final Obs # Observation Date Value Abnormality Reference Status Performing Location 0 HbA1C 10/24/2016 23:43 7.7 Above high normal 4.0-6.4 Final [place] [address] [address] [facility] [address]
--- OUTSIDE RECORDS SUMMARY | 2023-04-30 20:51 | External Medical Summary ---
Author Name Unknown Address [address] [place] [address] Phone Organization K01:[facility] [address] [facility] [address] Laboratory Report Ordering Provider Test Date Status JACQUES LAURA MD 10/24/2016 09:15:00 Final Obs # Observation Date Value Abnormality Reference Status Performing Location 0 Fasting status - Reported 10/24/2016 22:17 12 Final [facility] [address] [facility] [address] 1 Triglyceride 10/24/2016 23:40 151 <200 Final
--- OUTSIDE RECORDS SUMMARY | 2023-04-30 20:51 | External Medical Summary ---
Author Name Unknown Address [facility] [place] [address] Phone Organization K01:[place] [address] [address] [id number] Laboratory Report Ordering Provider Test Date Status JACQUES LAURA 01/30/2017 08:30:00 Final Observation Date Value Abnormality Reference Status HbA1C 01/31/2017 00:31 7.7 Above high normal 4.0-6 .4 Final Performing Location [place] [address] [address] [facility] [address]
--- OUTSIDE RECORDS SUMMARY | 2023-04-30 20:51 | External Medical Summary ---
Author Name Unknown Address [facility] [place] [address] Phone Organization K01:[place] [address] [address] [place] [address] [id number] Laboratory Report Ordering Provider Test Date Status RENNY SPEAR 04/17/2017 10:00:00 Final Observation Date Value Abnormality Reference Status HbA1C 04/18/2017 06:01 7.7 Above high normal 4.0-6 .4 Final Performing Location [place] [address] [address] [facility] [address]
--- OUTSIDE RECORDS SUMMARY | 2023-04-30 20:51 | External Medical Summary ---
Author Name Unknown Address [facility] [place] [address] Phone Organization K01:[facility] [address] [id number] Laboratory Report Ordering Provider Test Date Status JACQUES LAURA 01/30/2017 08:30:00 Final Observation Date Value Abnormality Reference Status BUN 01/31/2017 00:03 11 6-20 Fin al Creatinine 01/31/2017 00:03 0.7 0.5-1.0 Fi nal Performing Location [facility] 100 [facility] [address]
--- OUTSIDE RECORDS SUMMARY | 2023-04-30 20:51 | External Medical Summary ---
Author Name Unknown Address [facility]note 3[facility] [address] [place] [address] [phone] Phone Organization K01:[facility] [address] [id number] Laboratory Report Ordering Provider Test Date Status JACQUES LAURA MD 10/24/2016 09:15:00 Final Obs # Observation Date Value Abnormality Reference Status Performing Location 0 BUN 10/24/2016 23:40 14 6-20 Final [facility] [address] [facility] [address] 1 Creatinine 10/24/2016 23:40 0.8 0.5-1.0 Final
--- OUTSIDE RECORDS SUMMARY | 2023-04-30 20:51 | External Medical Summary ---
Author Name Unknown Address [facility] [address] [id number] Phone Organization K01:[place] [address] [address] [id number] Laboratory Report Ordering Provider Test Date Status JACQUES LAURA 01/30/2017 08:30:00 Final Observation Date Value Abnormality Reference Status Fasting status - Reported 01/30/2017 23:04 12 Final Triglyceride 01/31/2017 00:03 123 <200 Final Performing Location [address] [address]
--- OUTSIDE RECORDS SUMMARY | 2023-04-30 20:51 | External Medical Summary ---
Author Name Unknown Address [address] [id number] Phone Organization K01:[facility] [address] [facility] [address] Laboratory Report Ordering Provider Test Date Status JACQUES LAURA MD 10/24/2016 09:15:00 Final Obs # Observation Date Value Abnormality Reference Status Performing Location 0 Albumin, Urine 10/24/2016 23:54 <1.20 Final [facility] [address] [facility] [address] 1 Creatinine [Moles/volume] in Urine 10/24/2016 23:54 101 Final 2 Microalbumin / Creatinine Ratio 10/24/2016 23:54 <12 <30 Final
--- OUTSIDE RECORDS SUMMARY | 2023-04-30 20:51 | External Medical Summary ---
Author Name Unknown Address [address] [id number] Phone Organization K01:[facility] [address] [facility] [address] Laboratory Report Ordering Provider Test Date Status JACQUES LAURA MD 10/24/2016 09:15:00 Final Obs # Observation Date Value Abnormality Reference Status Performing Location 0 TSH 10/25/2016 00:07 2.37 0.27-4.2 Final [facility] [address] [facility] [address]
== END 2023-04-29 17:28 | disposition home or self-care (01) | DRG 617 ==
LOC: ED 14:24 → SUATTDRO 20:18 → 3E 20:18

== ENCOUNTER 2024-02-03 19:40 | Inpatient (IN) ==
--- OUTSIDE RECORDS SUMMARY | 2024-02-03 19:43 | External Medical Summary | Continuity of Care Document ---
Author Name Unknown Organization [facility] [address] [address] Address [address] [place] [phone] Care Team Providers Care Vascular Technologist Name Role Phone Rosa Isela Saba Primary Care Physician [phone] Encounter [facility] [id number] Date(s): 10/16/23 - 10/16/23 [facility] [address] [id number] [facility] [address] [address] Encounter Diagnosis Cubital tunnel syndrome on left(Discharge Diagnosis) - 10/16/23 Left carpal tunnel syndrome(Discharge Diagnosis) - 10/16/23 Discharge Disposition: Home or Self Care Attending Physician: MD Niki, Erik Ogden Allergies, Adverse Reactions, Alerts No Known Medication Allergies Medications furosemide 40 mg oral tablet Start: 09/21/22 15:32:00 EST Start Date: 09/21/22 Status: Ordered insulin aspart 100 units/mL injectable solution Start: 09/21/22 15:32:00 EST Start Date: 09/21/22 Status: Ordered Levemir FlexTouch 100 units/mL subcutaneous solution Start: 09/21/22 15:32:00 EST Start Date: 09/21/22 Status: Ordered levothyroxine 112 mcg (0.112 mg) oral tablet Start: 09/21/22 15:32:00 EST Start Date: 09/21/22 Status: Ordered multivitamin Start: 02/28/23 9:40:00 EDT, 1 tab, PO, Daily Start Date: 02/28/23 Status: Ordered [place] 5 mg-325 mg oral tablet Start: 09/05/23 11:22:00 EST, 1 tab, PO, q6h, Disp# 12 tab, Refills: 0, PRN: as needed for pain, Pharmacy: [facility] Start Date: 09/05/23 Status: Ordered Mental Status 10/16/23 Barriers to Learning one year None evide nt Mandatory Health Literacy Documentation Yes Health Literacy Communication Barriers N ever Primary Language Slovak Problem List Condition Confirmation Course Effective Dates Status Health St atus Informant Left carpal tunnel syndrome Confirmed Active Cubital tunnel syndrome on left Confirmed Active Left patella fracture Confirmed Active Diagnosis Diagnosis Type Effective Dates Health Status Cl inical Service Informant Left carpal tunnel syndrome Discharge Diagnosis 10/16/23 Cubital tunnel syndrome on left Discharge Diagnosis 10/16/23 Procedures Procedure Date Related Diagnosis Body Site Status Carpal tunnel release 1 08/30/23 C ompleted Transposition of ulnar nerve at elbow 2 08/30/23 Completed 1Left 2Left Social History Social History Type Response Smoking Status Never smoked cigaret albina Sex Ortho Outpt Note * Duyen Rodriguez: PERFORM MD Niki, Erik Ogden: MODIFY Event Display: Ortho Outpt Note Authored Date: [id number] Name:JUDY SAWYER Patient Number:[id number] :1960 Date of Service:10/16/2023 CHIEF COMPLAINT: Follow-up s/p left ulnar nerve transposition and left carpal tunnel release; DOS: 08/30/2023 HPI: [id number] Jeet presents today forfollow-up s/p left ulnar nerve transposition and left carpal tunnel release. She said she is feeling good, and her hand is healing slowly but surely. She is almost able to touch pinky to thumb. She is actively working on finger flexion and extension. She still has numbness in her fingers, which is slightly improved from her last visit. She is able to grasp things, but is not able to pick things up. PHYSICAL EXAM: Focus on the left upper extremity (hand and elbow): Numbness on left finger tips Intact sensation in thumb 1+ radial pulse Capillary refill less than 2 seconds Radial nerve sensation intact. 4-/5 finger abduction strength of index and long finger 5/5 thumb extension strength 3/5 palmar abduction of thumb 5/5 elbow flexion and extension strength 5/5 wrist flexion and extension strength Full supination and pronation Elbow ROM: 0 /0 /140 Trace loss finger extension at PIP joints 4-/5 acetone recovery worker strength Thenar and hypothenar eminenceswith atrophy No swelling Mild interossei atrophy Left little finger 1 cm from composite digit flexion Left index finger3 cm from composite digit flexion Other fingersat about 2cm Incisionsall well healed. Atrophy flexor pronator muscles of forearm IMPRESSION: 1) s/p left ulnar nerve transposition and left carpal tunnel release 2) Diabetic neuropathy PLAN: Continue to work on hand movement and PT May use ALAN wrap or golf glove as needed for swelling Follow-up in 6 weeks. Recovery could be of very prolonged or incomplete. May be 9 months or year until we know what kind of function she gets back. Diabetic neuropathymay play a role. ATTESTATION: IDuyen, scribing for and in the presence of, Erik Prince, on this date,10/16/2023 09:31:45. Electronic Signature on File Electronically Reviewed/Signed by: Duyen Rodriguez Author Signature Dt/Tm:10/16/2023 09:47 AM Electronically Reviewed/Signed by: Erik Prince MD Cosigner Signature Dt/Tm: 10/17/2023 02:43 PM Division of Sports Medicine MR Patient Care team information Care Team Personnel Name: DO Saba Elizabeth Marie Position: Referring Member Role: Primary Care Provider Address: Address: [address] [address]
--- OUTSIDE RECORDS SUMMARY | 2024-02-03 19:43 | External Medical Summary | Summary of Care ---
Author Name Unknown Organization [facility] Address [address] [place] [address] Phone [phone] Care Team Providers Care Liquefaction Plant Operator Name Role Phone SabaRosa Isela Primary Care Provider + Reason for Visit * Reason Onset Date Comments Diabetes Management 01/16/2024 Non-ce dm TRIAGE 01/16/2024 Encounter Details Date Type Department Care Team (Late st Contact Info) Description 01/16/2024 Telephone Pharmacy Call Center [phone] [place] [phone] Haja Lomax, [facility] [address] [place] [address] Diabetes Management (Non-ce dm ); TRIAGE Allergies No known active allergiesdocumented as of this encounter (statuses as of 01/17/2024) Medications Medication Sig Dispensed Refills Start Date End Date Status TEST STRIPS FOR GLUCOMETER-3 STRPIndications:DM type 2, not at goal (HCC) as directed 50 0 08/04/2002 Active LANTUS 100 U/ML SC SOLNIndications:DM type 2, not at goal (HCC) 30 units SQ at bedtime 1 vial 5 09/29/2002 Active KLOR-CON 20 MEQ PO PACK two tablets by mouth daily Active LISINOPRIL 20 MG PO TABS one by mouth daily Active ZANTAC 300 MG PO TABS one by mouht daily Active LEVOTHYROXINE SODIUM 137 MCG OR TABS one by mouth daily Active METFORMIN HCL 1000 MG PO TABS one by mouth twice a day Active ASPIRIN 81 MG PO TABS one by mouth daily Active LASIX 40 MG PO TABS one by mouth daily Active HUMALOG 100 UNIT/ML SUBQ SOLN 15 units subcutaneously three times a day Active documented as of this encounter (statuses as of 01/17/2024) Active Problems Problem Noted Date Diagnosed Date Dyslipidemia, goal to be determined 09/29/2002 Hypothyroidism 04/22/2001 DM type 2, not at goal 04/22/2001 UTERINE ENDOMETRIOSIS, history of uterine cancer, history of documented as of this encounter (statuses as of 01/17/2024) Social History Tobacco Use Types Packs/Day Years Used Date Smoking Tobacco: Never Smokeless Tobacco: Never Alcohol Use Standard Drinks/Week Comments Yes 0 (1 standard drink = 0.6 oz pur e alcohol) rare Sex and Gender Information Value Date Recorded Sex Assigned at Not on file Gender Identity Not on file Sexual Orientation Not on file documented as of this encounter Miscellaneous Notes * Telephone Encounter - Haja Lomax, [facility] - 01/16/2024 2:33 PM EDT [facility] Non-Clinical [place] [facility] THIS NOTE SERVES FOR TRIAGING PURPOSES ONLY AND IS NOT A PATIENT CONTACT. PATIENT MAY BE CONTACTED FOLLOWING MY ASSESSMENT. Patient was identified to be a candidate for the Non-CE telephonic program based on the following criteria: Pharmacy AND/OR Medical High Cost / A1c >=9.0 / PDC >= 80% Patient managed by [facility] provider? No; Is Pertinent Diabetes Info in Care Everywhere? Yes Last A1C: 9.3 (Result Date: 06/23/2022) Diabetes Diagnosis: Type 1 After chart review the following opportunities were identified: Mail Order Invite and Obtain Updated A1c Action to be taken by nuclear reactor technician: This is a follow up call. Patient last spoke with [facility] on 05/24/2023 , schedule an appointment. Needs Language Line: No Medication Claims Data (To verify during call): Med: INSULIN ASPART 100 Fill date: 11/13/2023 Day Supply: 100 Quantity: 40 || Med: INSULIN ASPART FLEXPEN 100 UNIT/ML Fill date: 05/30/2023 Day Supply:30 Quantity: 12 || Med: LEVEMIR FLEXPEN 100 Fill date: 11/13/2023 Day Supply: 95 Quantity: 21 Haja Lomax [facility] Clinical Pharmacist 01/16/2024, 2:33 PM documented in this encounter Plan of Treatment Health Maintenance Due Date Last Done Comments DXA Scan 1960 Pneumococcal Vaccine: Pediatrics (0 to 5 Years) and At-Risk Patients (6 to 64 Years) (1 of 2 - PCV) 1966 Depression Screening 1972 HIV Screening 1975 Diabetic Foot Exam 1978 Hepatitis C Screening 1978 Mammogram 2000 Cologuard 2005 Colonoscopy 2005 Colorectal Cancer Screening 2005 Fecal Occult Blood Test 2005 Sigmoidoscopy 2005 Zoster Vaccines (1 of 2) 2010 Diabetic Eye Exam 11/23/2011 11/22/2010 Albumin/Creatinine Ratio 10/24/2017 10/24/2016 TSH 04/17/2018 04/17/2017, 09/28, 09/22/1998 Lipid Panel 04/17/2022 04/17/2017, 01/2017, 10/24/2016 HbA1c 12/22/2022 06/23/2022, 03/28, 01/30/2017, Additional history exists COVID-19 Vaccine ( season) 2023 GFR 07/05/2023 07/05/2022, 09/2021, 06/27/2022, Additional history exists Influenza Vaccine (FLU shot) (Season Ended) 2024 Pap Smear Discontinued 04/22/2001 GARDASIL-HPV IMMUNIZATION SERIES Aged Out No longer eligible based on patient's age to complete this topic Hepatitis B Aged Out No longer eligi ble based on patient's age to complete this topic MENINGOCOCCAL (MENACTRA/MENVEO) Aged Out No longer eligible based on patient's age to complete this topic documented as of this encounter Medical Devices Not on filedocumented as of this encounter Care Teams Liquefaction Plant Operator Relationship Specialty Start Date End Date Rosa Isela Saba DO [address] [place] [address] [address] [address] PCP - General Family Medicine 07/25/22 documented as of this encounter"
--- OUTSIDE RECORDS SUMMARY | 2024-02-03 19:43 | External Medical Summary | Continuity of Care Document ---
Author Name Unknown Organization [place] [address] JUANA Aguirre Address [address] [place] [phone] Care Team Providers Care Group Insurance Specialist Name Role Phone Rosa Isela Saba Primary Care Physician [phone] [facility] [id number] Date(s): 01/18/24 - 01/18/[address], [address] [place] [address] [phone] Discharge Disposition: Home or Self Care Attending Physician: RADHA Padilla Lynn Referring Physician: RADHA Padilla Lynn Allergies, Adverse Reactions, Alerts No Known Medication Allergies Medications furosemide 40 mg oral tablet Start: 09/21/22 3:32:00 PM EST Start Date: 09/21/22 Status: Ordered insulin aspart 100 units/mL injectable solution Start: 09/21/22 3:32:00 PM EST Start Date: 09/21/22 Status: Ordered Levemir FlexTouch 100 units/mL subcutaneous solution Start: 09/21/22 3:32:00 PM EST Start Date: 09/21/22 Status: Ordered levothyroxine 112 mcg (0.112 mg) oral tablet Start: 09/21/22 3:32:00 PM EST Start Date: 09/21/22 Status: Ordered multivitamin Start: 02/28/23 9:40:00 AM EDT, 1 tab, PO, Daily Start Date: 02/28/23 Status: Ordered [place] 5 mg-325 mg oral tablet Start: 09/05/23 11:22:00 AM EST, 1 tab, PO, q6h, Disp# 12 tab, Refills: 0, PRN: as needed for pain, Pharmacy: [facility] Start Date: 09/05/23 Status: Ordered Problem List Condition Confirmation Course Effective Dates Status Health St atus Informant Left carpal tunnel syndrome Confirmed Active Cubital tunnel syndrome on left Confirmed Active Left patella fracture Confirmed Active Procedures Procedure Date Related Diagnosis Body Site Status Carpal tunnel release 1 08/30/23 C ompleted Transposition of ulnar nerve at elbow 2 08/30/23 Completed 1Left 2Left Results Radiology Reports * Exam Date Time Procedure Performing Provider Status 01/18/24 1:44 PM VL Lower Ext Arterial Duplex Limited Camelia Kimball; Final Notes: (VL Lower Ext Arterial Duplex Limited) Reason For Exam: pad VL Lower Ext Arterial Duplex Limited [facility] FINAL REPORT Name: JUDY SAWYER : 1960 Visit: [id number] Date: 18 Jan 2024 TYPE OF TEST: Extremity Arterial Duplex REASON FOR TEST PAD INTERPRETATION/FINDINGS Arterial duplex imaging performed of the RIGHT lower extremity: 1. 75-99% stenosis of the common femoral artery with monophasic flow insonated distally. 2. Patent distal external iliac, proximal profunda femoris, superficial femoral, popliteal, anterior tibial, posterior tibial and peroneal arteries without hemodynamically significant stenosis identified. 3. The right ankle/brachial index is 0.69 (moderately reduced). 4. The left ankle/brachial index is 1.00 (normal). No previous studies available for comparison. IMPRESSION/COMMENTS I have personally reviewed the data relevant to the interpretation of this study. TECHNOLOGIST: Camelia Cruz, PEGGY, RVT PHYSICIAN: Jameel Bennett M.D. Signed: 01/19/2024 07:18 PM Final Dictated by:MD Bennett Faisal Dictated DT/TM:01/19/2024 7:18 Signed by:MD Bennett Faisal Signed (Electronic Signature):01/19/2024 7:18 p Transcribed by:KOLBY Social History Social History Type Response Smoking Status Never smoked cigaret albina Sex Patient Care team information Care Team Personnel Name: DO Saba Elizabeth Marie Position: Referring Member Role: Primary Care Provider Address: Address: [place] [id number] Name: RADHA Padilla Lynn Position: Physician Lamps Tester And Inspector Exempt - Vasc Surg Member Role: Lifetime Relationship Address: Address: [address] [place] [address] [address] [place] [address] [place]
--- OUTSIDE RECORDS SUMMARY | 2024-02-03 19:43 | External Medical Summary | Continuity of Care Document ---
Author Name Unknown Organization [facility] [address] [address] Address [address] [id number] Care Team Providers Care Medical Voucher Clerk Name Role Phone Rosa Isela Saba Primary Care Physician [phone] [id number] Date(s): 10/31/23 - 11/21/23 [facility] [address] [id number] [address] [place] [phone] Discharge Disposition: Home or Self Care Attending Physician: MAURICIO Valencia Benjamin Referring Physician: MD Niki, Erik Ogden Allergies, Adverse [...] PO, Daily Start Date: 02/28/23 Status: Ordered [place] 5 mg-325 mg oral tablet Start: 09/05/23 11:22:00 EST, 1 tab, PO, q6h, Disp# 12 tab, Refills: 0, PRN: as needed for pain, Pharmacy: [facility] Start Date: 09/05/23 Status: Ordered Problem List Condition Confirmation Course Effective Dates Status [facility] atus Informant Left carpal tunnel syndrome Confirmed [...] Member Role: Primary Care Provider Address: Address: [address]
--- OUTSIDE RECORDS SUMMARY | 2024-02-03 19:43 | External Medical Summary | Continuity of Care Document ---
Author Name Unknown Organization [facility] [address] [address] Address [address] [place] [phone] Care Team Providers Care Inspector Watch Parts Name Role Phone Rosa Isela Saba Primary Care Physician [phone] [facility] [id number] Date(s): 09/14/23 - 09/14/23 [facility] [address] [address] [facility] [address] [address] Encounter Diagnosis Cubital tunnel syndrome on left(Discharge Diagnosis) - 09/14/23 Left carpal tunnel syndrome(Discharge Diagnosis) - 09/14/23 Discharge Disposition: Home or Self Care Attending [...] PO, Daily Start Date: 02/28/23 Status: Ordered [place] 5 mg-325 mg oral tablet Start: 09/05/23 11:22:00 EST, 1 tab, PO, q6h, Disp# 12 tab, Refills: 0, PRN: as needed for pain, Pharmacy: [facility] Start Date: 09/05/23 Status: Ordered Mental Status 09/14/23 Barriers to Learning one year None evide nt Mandatory Health Literacy Documentation Yes Health Literacy Communication Barriers N ever Primary Language Latvian Problem List Condition Confirmation Course Effective Dates Status Health St atus Informant Left carpal tunnel syndrome Confirmed Active Cubital tunnel syndrome on left Confirmed Active Left patella fracture Confirmed Active Diagnosis Diagnosis Type Effective Dates Health Status Cl inical Service Informant Left carpal tunnel syndrome Discharge Diagnosis 09/14/23 Cubital tunnel syndrome on left Discharge Diagnosis 09/14/23 Procedures Procedure Date Related Diagnosis Body Site Status Carpal tunnel release 1 08/30/23 C ompleted Transposition of ulnar nerve at elbow 2 08/30/23 Completed 1Left 2Left Social History Social History Type Response Smoking Status Never smoked cigaret albina Sex Ortho Outpt Note * Saniya Grewal: PERFORM MD Niki, Erik Ogden: MODIFY Event Display: Ortho Outpt Note Authored Date: [id number] Name:JUDY SAWYER Patient Number:[id number] :1960 Date of Service:09/14/2023 CHIEF COMPLAINT: Follow-up s/p left ulnar nerve transposition and left carpal tunnel release; DOS: 08/30/2023 HPI: [id number] Jeet presents today forfollow-up s/p left ulnar nerve transposition and left carpal tunnel release. She states no significant improvement following surgery yet. She still notes her thumb and forefinger are still a bit sore. She is actively working on finger flexion and extension. She still has numbness in her left little and index finger. PHYSICAL EXAM: Focus on the left upper extremity (hand and elbow): Numbness on left little and index finger 1+ radial pulse Capillary refill less than 2 seconds Radial nerve sensation intact. 4-/5 finger abduction strength of index and long finger 5-/5 thumb extension strength 3/5 palmar abduction of thumb 5/5 elbow flexion and extension strength Significant firstinterossei atrophy Missing 10 terminal extension Left little finger 1 cm from distal palmar crease Left index finger 2 cm from distal palmar crease Weak tip to tip pinch strength Elbow ROM: 0 /0 /130 Full forearm rotation No fluctuance, swelling or redness over elbow or palm incision Incision benign. IMPRESSION: 1) 2 weeks s/p left ulnar nerve transposition and left carpal tunnel release 2) Diabetic neuropathy PLAN: Sutures removed and steri strips placed to remove in 3-5 days. Do not submerge until healed with normal skin Continue to work on hand movement and PT will begin nerve glides May use ice wrap or golf glove as needed for swelling Follow-up in 1 month. May use hand for light activities of daily living. ATTESTATION: ISaniya, scribing for and in the presence of, Erik Prince, on this date,408:54:50. Electronic Signature on File Electronically Reviewed/Signed by: Saniya Grewal Author Signature Dt/Tm:09/14/2023 09:06 AM Electronically Reviewed/Signed by: Erik Prince MD Cosigner Signature Dt/Tm: 09/14/2023 09:14 AM Division of Sports Medicine [place] Patient Care team information Care Team Personnel Name: DO Saba Elizabeth Marie Position: Referring Member Role: Primary Care Provider Address: Address: [address] [address] [place]
--- OUTSIDE RECORDS SUMMARY | 2024-02-03 19:43 | External Medical Summary | Continuity of Care Document ---
Author Name Unknown Organization [facility] [address] Address [address] [id number] Care Team Providers Care Grain Elevator Man Name Role Phone Rosa Isela Saba Primary Care Physician [phone] [id number] Date(s): 09/05/23 - 11/21/23 [facility] [address] [id number] [address] [id number] Encounter Diagnosis Left wrist pain(Discharge Diagnosis) - 09/07/23 Discharge Disposition: Home or Self Care Attending Physician: KRISTA Faria Angela M Referring Physician: MD Niki, Erik Ogden Allergies, Adverse Reactions, Alerts No Known Medication Allergies Assessment and Plan Extracted from: Title:Clinical Document Author:RADHA Clifton, Aman Smith Date:09/05/23 ORTHOPAEDICS OUTPATIENT NOTE Name: TANIA SAWYER Patient Number: [id number] : 1960 Date of Service: 09/05/2023 Chief Complaint: Status Post left ulnar nerve transposition and left carpal tunnel release with Dr. Prince on August 30, 2023 HPI: Tania is here today for her first postoperative physical therapy appointment. She is doing well. No complaints of significant pain. She is using her sling for comfort. She did leave the dressings in place. She states she did have a little pain in her left wrist today which she took [place] for. She is requesting another refill of that. She continues to have some mild numbness and tingling in her left hand. Mild swelling. She states she has been working on gentle range of motion exercises. No fevers or chills. Current Home Meds: (Last Updated 08/14 09:35) acetaminophen-hydrocodone ([place] 5 mg-325 mg oral tablet) 1 tab PO q6h PRN: as needed for pain furosemide (furosemide 40 mg oral tablet) insulin aspart (insulin aspart 100 units/mL injectable solution) insulin detemir (Levemir FlexTouch 100 units/mL subcutaneous solution) levothyroxine (levothyroxine 112 mcg (0.112 mg) oral tablet) multivitamin 1 tab PO Daily Allergies and Sensitivities: No Known Medication Allergies Past Medical History: Problems: Cubital tunnel syndrome on left Left carpal tunnel syndrome Physical Exam Exam of her left upper extremity: No significant swelling about her elbow. She does have some mild edema into the dorsum of her hand. Incisions are clean, dry and intact with retained sutures. Mild erythema at the base of the carpal tunnel incision but no active drainage. No purulence or fluctuance. Skin edges are well-approximated. Tolerates gentle finger extension and flexion as well as wrist flexion extension. She tolerates gentle pronation supination of the forearm. Is able to gently do some extension and flexion of the left elbow. Has some mild decreased range of motion of the left shoulder today. Distal pulses are 1+. Capillary fill is brisk. ASSESSMENT: Status post left ulnar nerve transposition, left carpal tunnel release with Dr. Prince on August 30, 2023 PLAN: Continuation of physical therapy as an outpatient. Avoid any heavy pushing, pulling or lifting type activities. We will apply a light dressing with Tubigrip on the left upper extremity today. Encourage range of motion exercises and nerve glides as instructed by the physical therapist. Keep the incisions covered. Okay to shower. Pat the incisions dry and redress with a light dressing. Follow-up next week as scheduled. Call with any increased pain, swelling, drainage from the incisionsAnother prescription for [place] was sent to her pharmacy. The [place] PD[place] was checked with no issues identified. Sling for comfort. She understands and agrees with the plan. All questions were answered. This chart was completed utilizing [employer] voice recognition software. Grammatical errors, random word insertions, pronoun errors, and in complete sentences are an occasional consequence of the system. Any questions or concerns about the content, text, or information contained within the body of this dictation should be addressed directly to the provider for clarification. Medications furosemide 40 mg oral tablet Start: [...] PO, Daily Start Date: 02/28/23 Status: Ordered [place] 5 mg-325 mg oral tablet Start: 09/05/23 11:22:00 EST, 1 tab, PO, q6h, Disp# 12 tab, Refills: 0, PRN: as needed for pain, Pharmacy: [id number] Start Date: 09/05/23 Status: Ordered Problem List Condition Confirmation Course Effective Dates Status Health St atus Informant Left carpal tunnel syndrome Confirmed Active Cubital tunnel syndrome on left Confirmed Active Left patella fracture Confirmed Active Diagnosis Diagnosis Type Effective Dates Health Status Cl inical Service Informant Left wrist pain Discharge Diagnosis 09/07/23 Non-Specified Procedures Procedure Date Related Diagnosis Body Site Status Carpal tunnel release 1 08/30/23 C ompleted Transposition of ulnar nerve at elbow 2 08/30/23 Completed 1Left 2Left Social History Social History Type Response Smoking Status Never smoked cigaret albina Sex Ortho Outpt Note * RADHA Clifton, Orquidea R: PERFORM Event Display: Ortho Outpt Note Authored Date: ORTHOPAEDICS OUTPATIENT NOTE Name: TANIA SAWYER Patient Number: [id number] : 1960 Date of Service: 09/05/2023 Chief Complaint: Status Post left ulnar nerve transposition and left carpal tunnel release with on August 30, 2023 HPI: Tania is here today for her first postoperative physical therapy appointment. She is doing well. No complaints of significant pain. She is using her sling for comfort. She did leave the dressings in place. She states she did have a little pain in her left wrist today which she took [place] for. She is requesting another refill of that. She continues to have some mild numbness and tingling inher left hand. Mild swelling. She states she has been working on gentle range of motion exercises. No fevers or chills. Current Home Meds: (Last Updated 08/14 09:35) acetaminophen-hydrocodone ([place] 5 mg-325 mg oral tablet) 1 tab PO q6h PRN: as needed for pain furosemide (furosemide 40 mg oral tablet) insulin aspart (insulin aspart 100 units/mL injectable solution) insulin detemir (Levemir FlexTouch 100 units/mL subcutaneous solution) levothyroxine (levothyroxine 112 mcg (0.112 mg) oral tablet) multivitamin 1 tab PO Daily Allergies and Sensitivities: No Known Medication Allergies Past Medical History: Problems: Cubital tunnel syndrome on left Left carpal tunnel syndrome Physical Exam Exam of her left upper extremity: No significant swelling about her elbow. She does have some mild edema into the dorsum of her hand. Incisions are clean, dry and intact with retained sutures. Mild erythema at the base of the carpal tunnel incision but no active drainage. No purulence or fluctuance. Skin edges are well-approximated. Tolerates gentle finger extension and flexion as well as wrist flexion extension. She tolerates gentle pronation supination of the forearm. Is able to gently do some extension and flexion of the left elbow. Has some mild decreased range of motion of the left shoulder today. Distal pulses are 1+. Capillary fill is brisk. ASSESSMENT: Status post left ulnar nerve transposition, left carpal tunnel release with Dr. Prince on August 30, 2023 PLAN: Continuation of physical therapy as an outpatient. Avoid any heavy pushing, pulling or lifting type activities. We will apply a light dressing with Tubigrip on the left upper extremity today. Encourage range of motion exercises and nerve glides as instructed by the physical therapist. Keep the incisions covered. Okay to shower. Pat the incisions dry and redress with a light dressing. Follow-up next week as scheduled. Call with any increased pain, swelling, drainage from the incisionsAnother prescription for [place] was sent to her pharmacy. [place] was [place] with no issues identified. Sling for comfort. She understands and agrees with the plan. All questions were answered. This chart was completed utilizing [employer] voice recognition software. Grammatical errors,random word insertions, pronoun errors, and in complete sentences are an occasional consequence of the system. Any questions or concerns about the content, text, or information contained within the body of this dictation should be addressed directly to the provider for clarification. Electronic Signature on File Electronically Reviewed/Signed by: Orquidea Clifton PA-C Author Signature Dt/Tm:09/05/2023 11:21AM Division of Sports Medicine Electronically Reviewed/Signed by: Erik Prince MD Cosigner Signature Dt/Tm: 09/05/2023 11:50 AM Division of Sports Medicine [facility] Patient Care team information Care Team Personnel Name: DO Saba Elizabeth Marie Position: Referring Member Role: Primary Care Provider Address: Address: [address] [address]
--- OUTSIDE RECORDS SUMMARY | 2024-02-03 19:43 | External Medical Summary | Continuity of Care Document ---
Author Name Unknown Organization [facility] [address] [id number] Address [address] [place] [id number] Care Team Providers Care Oncology Nurse Navigator Name Role Phone Rosa Isela Saba Primary Care Physician [phone] [facility] [id number] Date(s): 09/05/23 - 09/05/23 [facility] [address] [id number] [facility] [address] [address] Discharge Disposition: Home or Self Care Attending Physician: RADHA Clifton, Orquidea Smith Referring Physician: MD Niki, Erik Ogden Allergies, [...] PO, Daily Start Date: 02/28/23 Status: Ordered [place] 5 mg-325 mg oral tablet Start: 09/05/23 11:22:00 EST, 1 tab, PO, q6h, Disp# 12 tab, Refills: 0, PRN: as needed for pain, Pharmacy[id number] Start Date: 09/05/23 Status: Ordered [...] Member Role: Primary Care Provider Address: Address: [address] [address]
--- OUTSIDE RECORDS SUMMARY | 2024-02-03 19:43 | External Medical Summary | Summary of Care ---
Author Name Unknown Organization [facility] Address [address] [place] [address] Phone [phone] Care Team Providers Care Cell Builder Name Role Phone SabaRosa Isela Primary Care Provider + Reason for Visit * Reason Onset Date Comments Diabetes Management 01/16/2024 Non-ce dm TRIAGE 01/16/2024 Encounter Details Date Type Department Care Team (Late st Contact Info) Description 01/16/2024 Telephone Pharmacy Call Center [phone] [place] [phone] Haja Lomax, [facility] [address] [place] [address] Diabetes Management (Non-ce dm ); TRIAGE Allergies No known active allergiesdocumented as of this encounter (statuses as of 01/16/2024) Medications Medication Sig Dispensed Refills Start Date [...] as of this encounter (statuses as of 01/16/2024) Active Problems Problem Noted Date Diagnosed Date Dyslipidemia, goal to be determined 09/29/2002 Hypothyroidism 04/22/2001 DM type 2, not at goal 04/22/2001 UTERINE ENDOMETRIOSIS, history of uterine cancer, history of documented as of this encounter (statuses as of 01/16/2024) Social History Tobacco Use Types Packs/Day Years [...] Notes * Telephone Encounter - Haja Lomax, [facility] - 01/16/2024 2:33 PM EDT [facility] Non-Clinical [facility] THIS NOTE SERVES FOR TRIAGING PURPOSES ONLY AND IS NOT A PATIENT CONTACT. PATIENT MAY BE CONTACTED FOLLOWING MY ASSESSMENT. Patient was identified to be a candidate for the Non-CE telephonic program based on the following criteria: Pharmacy AND/OR Medical High Cost / A1c >=9.0 / PDC >= 80% Patient managed by [facility] provider? No; Is Pertinent Diabetes Info in Care Everywhere? Yes Last A1C: 9.3 (Result Date: 06/23/2022) Diabetes Diagnosis: Type 1 After chart review the following opportunities were identified: Mail Order Invite and Obtain Updated A1c Action to be taken by physics technician: This is a follow up call. Patient last spoke with [facility] on 05/24/2023 , schedule an appointment. Needs Language Line: No Medication Claims Data (To verify during call): Med: INSULIN ASPART 100 Fill date: 11/13/2023 Day Supply: 100 Quantity: 40 || Med: INSULIN ASPART FLEXPEN 100 UNIT/ML Fill date: 05/30/2023 Day Supply:30 Quantity: 12 || Med: LEVEMIR FLEXPEN 100 Fill date: 11/13/2023 Day Supply: 95 Quantity: 21 Haja Lomax [facility] Clinical Pharmacist 01/16/2024, 2:33 PM documented in [...] filedocumented as of this encounter Care Teams Cell Builder Relationship Specialty Start Date End Date Rosa Isela Saba DO [address] [place] [address] [address] [address] PCP - General Family Medicine 07/25/22 documented as of this encounter"
[2024-02-03] MEDS: SODIUM CHLORIDE 0.9% 500 ML IV SCH (20:08)
--- NOTE | 2024-02-03 20:43 | XRay Report ---
SINGLE VIEW CHEST CLINICAL HISTORY: Falls. Dizziness FINDINGS: An AP, portable, upright chest radiograph is obtained. No prior studies are available for c omparison at the time of dictation. The cardiomediastinal silhouette is unremarkable. Nonspecific int erstitial thickening is likely chronic. There is mild bibasilar scarring/atelectasis. No airspace con solidation or large pleural effusion is identified. No pneumothorax is seen. The skeletal structures are osteopenic. The bony thorax is grossly intact. Arthritic change is noted in the shoulders. IMPRESSION: No acute cardiopulmonary abnormality. ACT 112: Negative or not required by law. Electronically signed by: Andrey Loaiza M.D. 02/03/2024 8:42 PM
[2024-02-03 20:45] LABS: Basophils # (auto) 0.07 K/uL (0.00-0.20); Basophils % (auto) 0.5 %; Eosinophils % (auto) 0.8 %; Hematocrit (blood only) 43.2 % (37.0-47.0); Hemoglobin 15.5 g/dl (12.0-16.0); Immature Granulocytes # (auto) 0.07 K/uL (0.01-0.20); Immature Granulocytes % (auto) 0.5 %; Lymphocytes # (auto) 2.45 K/uL (1.20-3.40); Lymphocytes % (auto) 18.8 %; Mean Corpuscular Hemoglobin 31.1 pg (25.0-34.0); Mean Corpuscular Hgb Conc 35.9 g/dL (32.0-36.0); Mean Corpuscular Volume 86.6 fL (80.0-100.0); Mean Platelet Volume 10.2 fL (9.4-12.4); Monocytes # (auto) 1.44 K/uL (0.11-0.59); Monocytes % (auto) 11.1 %; Neutrophils # (auto) 8.87 K/uL (1.40-6.50); Neutrophils % (auto) 68.3 %; Platelet Count 223 K/uL (130-400); RDW Standard Deviation 40.8 fL (36.4-46.3); Red Blood Count 4.99 M/uL (4.20-5.40)
--- NOTE | 2024-02-03 20:49 | CT Scan Report ---
CT SCAN OF THE BRAIN WITHOUT IV CONTRAST CLINICAL HISTORY: Head injury. Dizziness. COMPARISON STUDY: No priors. TECHNIQUE: Unenhanced axial CT scan of the brain is performed from the vertex to the skull base. A do se lowering technique was utilized adhering to the principles of ALARA. CT DOSE: 657.02 mGy.cm FINDINGS: Brain parenchyma: There is age-related involutional change noting mild microangiopathic disease. Ther e is no hemorrhage, mass effect, or evidence of acute territorial ischemia by CT criteria. Montano-white matter differentiation is preserved. No extra-axial fluid collection is seen. Ventricles, sulci, cisterns: Prominent secondary to involutional change. Intracranial vasculature: There is atherosclerotic calcification of the cavernous carotid and vertebr al arteries. Calvarium: Unremarkable. Sinuses and mastoids: The visualized paranasal sinuses are clear. There is a small left mastoid effus ion. The right mastoid air cells are well pneumatized. Cerumen is noted in the right environmental auditor y canal. Orbits: The bony orbits are grossly intact. IMPRESSION: There is no hemorrhage, mass effect, or evidence of acute territorial ischemia by CT rona ritchie. ACT 112: Negative or not required by law. Electronically signed by: Andrey Loaiza M.D. 02/03/2024 8:46 PM
[2024-02-03 21:01] LABS: Albumin Globulin Ratio 1.3 (0.9-2); Albumin Level 4.2 gm/dl (3.4-5.0); BUN Creatinine Ratio 11.7 (10-20); Bilirubin,Total 0.8 mg/dl (0.2-1.0); Calcium 9.9 mg/dl (8.6-10.3); Creatinine Clr Calc Pharmacy 27.8 ml/min; Est GFR (African American) 26.5 ml/min; Est GFR (Non-African American) 22.8 ml/min; Globulin 3.2 gm/dl (2.5-4.0); Total Protein 7.4 gm/dl (6.0-8.3)
[2024-02-03 21:08] LABS: Troponin I High Sensitivity 6.3 pg/ml (0-14)
[2024-02-03 21:45] LABS: Appearance Urine Cloudy (Clear); Bacteria Urine Automated None Seen (None Seen); Bilirubin Urine Negative (Negative); Blood Urine 3+ (Negative); Cast Urine Automated >20 /lpf (0-2); Color Urine Yellow; Glucose Urine UA Negative (Negative); Hyaline Casts Urine Present /lpf (None Presnt); Ketones Urine Negative (Negative); Leukocyte Esterase Urine Negative (Negative); Nitrite Urine Negative (Negative); Protein Urine 2+ (Negative); RBC Urine Automated 0-2 /hpf (0-2); Specific Gravity Urine 1.014 (1.000-1.030); Urobilinogen Urine Negative (Negative); WBC Urine Automated 0-5 /hpf (0-5); pH Urine 5.5 (4.5-7.5)
[2024-02-03] MEDS: SODIUM CHLORIDE 0.9% 1,000 ML IV SCH (22:02)
[2024-02-03] MEDS: POTASSIUM CHLORIDE CRTAB 20 MEQ TABCR PO STA (22:17)
[2024-02-03] MEDS: LACTATED RINGER'S 1,000 ML IV SCH (22:17)
--- NOTE | 2024-02-03 22:29 | History & Physical Report ---
Date of Service February 03, 2024 Assessment & Plan (1) Hypotension: Plan: Patient with borderline hypotension. Suspect mostly due to volume contraction - she has elevation of BUN and Cr from baseline - last value from June 2023 (17 --> 26 and 0.89 --> 2.22, respectively) , UA with >20 casts, HCO3 = 35. Patient reports decreased oral intake over the last several weeks and remains on Lasix 40mg po daily. Question of infection as well - unclear source. She does have an elevated WBC count but procalcitonin is unremarkable, UA and CXR do not suggest infection. -Continue IVF -Follow cultures -Check random cortisol in AM (2) LIDIA (acute kidney injury): Plan: Elevation of BUN and Cr from baseline. Patient reports decreased intake over the last several weeks. She is on Lasix 40mg po daily. Suspect volume contraction in part. Also with elevation of CK although mild. Reports she hasn't been taking the Ibuprofen -IVF with LR at 125mL/hr x 2L -Repeat BMP in AM -Avoid nephrotoxic agents -Renal dosing where needed (3) Weakness: Plan: Patient with generalized weakness, fall. Likely secondary to dehydration, LIDIA and hypokalemia. -IVF and electrolyte repletion -Fall precautions -PT/OT evaluation (4) Elevated creatine kinase: Plan: Elevation of CK to 758. UA with +Blood and no RBCs. -Continue IVF LR at 125mL/hr x 2L ordered -Repeat CK in AM -Hold Crestor Plan DM -Lantus 5u daily with ISS -Check HgbA1C Hyperlipidemia: chronic. stable -Hold Crestor for now in setting of elevated CK F/E/N - LR at 125mL/hr x 2L, KCl 40mEq given, repeat labs in AM, CC diet as tolerated Ppx - heparin 5000u BID Code - Full Dispo - Admit to medical with telemetry History of Present Illness Chief Complaint: lightheadedness Primary Care Provider: KWAKU Garcia Tania Sorenson is a 63yo female with history of DM, HLP, Hypothyroidism and remote history of uterine cancer s/p surgical cure presenting with 2-3 weeks of lightheadedness, generalized weakness and near syncope. She reports she becomes quite dizzy with standing up. She reports that she is unable to ambulate very far in her home due to generalized weakness and fatigue. Additionally she reports fatigue as well as poor appetite and decreased oral intake for the last several weeks. She states that "food doesn't appeal to me". She has intermittent nausea and felt very tired today. Also with constipation - had a normal BM last night. She denies chest pain, palpitations, cough, abdominal pain, vomiting, fevers or chills This evening she fell from the commode. She had a riser on the commode which was removed then replaced but it wasn't stable. Patient sat down on the commode and the riser slid off causing the patient to fall. She did strike the left side of her head on a small wood heel flap inserter the bathroom but did not lose consciousness. She was down several moments before her helped her up. In the ER she is afebrile, hypotensive with BP 80/50's initial which has improved slightly with IVF. Allergies Allergy/AdvReac Type Severity Reaction Status Date / Time tetanus toxoid, adsorbed AdvReac Intermediate SWELLING Verified 02/03/24 21:24 AT SITE AND REDNESS Home Medications Medication Instructions Recorded Confirmed Type blood sugar diagnostic (OneTouch 09/04/22 08/30/23 History Ultra Test strips) blood-glucose meter (OneTouch 09/04/22 08/30/23 History Ultra2 Meter) blood-glucose transmitter (Dexcom 09/04/22 08/30/23 History G6 Transmitter device) blood-glucose meter,continuous #1 ea 02/26/23 08/30/23 Rx (Dexcom G7 Exercise Planner) pen needle, diabetic 32 gauge x #100 ea 02/26/23 08/30/23 Rx 5/16" (Comfort EZ Pen [place]) blood-glucose sensor (Dexcom G7 #9 ea 02/28/23 08/30/23 Rx Sensor device) insulin detemir U-100 100 unit/mL 11 unit (0.11 mL) subcut BID 90 08/07/23 02/03/24 Rx (3 mL) subcutaneous pen (Levemir days #21 mL FlexPen) insulin aspart U-100 100 unit/mL 0 sliding scale dose subcut TIDM 08/14/23 02/03/24 History subcutaneous solution (Novolog U-100 Insulin aspart) rosuvastatin 40 mg tablet 40 mg PO DAILY #90 tabs 08/24/23 02/03/24 Rx ibuprofen 200 mg tablet (Advil) 600 mg (3 x 200 mg) PO QID PRN 08/30/23 02/03/24 Rx fever or pain #30 tabs furosemide 40 mg tablet (Lasix) 40 mg PO DAILY 02/03/24 02/03/24 History Past Med/Surg History Problem List (Updated 02/04/24 @ 02:32 by Rosa Isela Burrell DO) LIDIA (acute kidney injury) Elevated creatine kinase Fall Weakness Hypotension (Acute) Cubital tunnel syndrome Carpal tunnel syndrome History of partial amputation of toe of right foot Elevated blood pressure reading Peripheral arterial disease (Acute) Stenosis of right femoral artery Encounter for pre-operative examination Hypokalemia (Acute) Diabetic foot ulcer with osteomyelitis hx-surgery to remove Foot pain Diabetic infection of right foot (Acute) Loss of protective sensation of skin of foot Lower extremity edema Hyperglycemia due to type 1 diabetes mellitus Nausea & vomiting (Acute) Elevated troponin (Acute) Dyslipidemia 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 Diabetes Surgical History History of partial amputation of toe of right foot (07/2023) History of carpal tunnel release (08/2023) Hx of colonoscopy History of tonsillectomy and adenoidectomy initial sx age 2, revision age 12 Hx of total hysterectomy with removal of both tubes and ovaries also removed gallbladder and appendix at same time Family History Mother Myocardial infarction Denies family history of Ovarian cancer Prostate cancer Breast cancer Colorectal cancer Social History Smoking Status: Never smoker Second Hand Exposure: Yes (sister smokes, lives w/pt.); Do You Dip or Chew Tobacco: No; Hx Alcohol Use: Yes Alcohol type: beer Alcohol Intake Frequency: Monthly or Less Hx Substance Use: No Preferred Language: Yoruba Communication Ability: Effective Visual Impairment: No Limitations Hearing Ability: Normal 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 Beliefs That Will Affect Care: None marital status: Single Current Living Situation: Family Current Living Situation Comment: lives w/ sister current occupational status: retired Other Information That Helps Us Care for You: No Feels Safe at Home: Yes Safety Concerns: Feels Safe At This Time Childhood Exposure to Second-Hand Smoke: Yes Diet: low carbohydrate caffeine: Yes during the past year weight has: remained stable Dental Care, Regularly: No Physical Activity Frequency: Daily Seatbelt Use: always Sunscreen Use: No Assistive Devices: None Review of Systems Review of Systems: All systems reviewed & are unremarkable except as noted in HPI & below Physical Exam Physical Exam: General: patient resting comfortably, NAD, non-toxic in appearance, AA&O x 4 Skin: warm, dry, intact, no rashes or lesions HEENT: NC/AT, PERRL, EOMI, anicteric sclera, conjunctiva without injection, ex ternal ear normal to inspection and nontender, nares patent, dry mucus membranes, dentition intact, no oropharyngeal lesions, neck supple, trachea midline, no LAD, no thyromegaly, no JVD Heart: +S1/S2, regular, no m/r/g Lungs: equal air entry bilaterally, no rales/rhonchi/wheezes Abd: +BS, soft, NT/ND, no masses/organomegaly/ascites Ext: warm, 2+ pulses in UE/LE bilaterally, no clubbing/cyanosis or edema Neuro: nonfocal, patient AA&O x 4, speech intact, no facial droop, moving all extremities on command with equal strength 5/5 Results & Data Results & Data Vital Signs (Past 12 Hours) Vital Signs Temp Pulse Resp BP BP Pulse Ox O2 Del Method 02/03/24 21:24 75 14 02/03/24 21:18 79 15 02/03/24 21:00 103/49 L 02/03/24 20:51 74 11 L 94 02/03/24 20:48 73 16 95 02/03/24 20:30 104/58 L 02/03/24 20:27 72 20 92 02/03/24 20:12 76 19 02/03/24 20:00 78 19 95 02/03/24 19:57 76 22 97 02/03/24 19:51 96 Room Air 02/03/24 19:49 74 02/03/24 19:48 72 17 95 02/03/24 19:44 36.8 C 74 18 114/72 96 Room Air Laboratory Results Laboratory Results WBC 13.00 K/ul (4.8-10.8) H 02/03/24 20:17 RBC 4.99 M/uL (4.20-5.40) 02/03/24 20:17 Hgb 15.5 g/dl (12.0-16.0) 02/03/24 20:17 Hct 43.2 % (37.0-47.0) 02/03/24 20:17 MCV 86.6 fL (80.0-100.0) 02/03/24 20:17 MCH 31.1 pg (25.0-34.0) 02/03/24 20:17 MCHC 35.9 g/dL (32.0-36.0) 02/03/24 20:17 RDW Std Deviation 40.8 fL (36.4-46.3) 02/03/24 20:17 RDW Coeff of [place] 13.0 % (11.5-14.5) 02/03/24 20:17 Plt Count 223 K/uL (130-400) 02/03/24 20:17 MPV 10.2 fL (9.4-12.4) 02/03/24 20:17 Immature Gran % (Auto) 0.5 % 02/03/24 20:17 Neut % (Auto) 68.3 % 02/03/24 20:17 Lymph % (Auto) 18.8 % 02/03/24 20:17 [place] % (Auto) 11.1 % 02/03/24 20:17 Eos % (Auto) 0.8 % 02/03/24 20:17 Baso % (Auto) 0.5 % 02/03/24 20:17 Neut # (Auto) 8.87 K/uL (1.40-6.50) H 02/03/24 20:17 Lymph # (Auto) 2.45 K/uL (1.20-3.40) 02/03/24 20:17 [place] # (Auto) 1.44 K/uL (0.11-0.59) H 02/03/24 20:17 Eos # (Auto) 0.10 K/uL (0.00-0.50) 02/03/24 20:17 Baso # (Auto) 0.07 K/uL (0.00-0.20) 02/03/24 20:17 Immature Gran # (Auto) 0.07 K/uL (0.01-0.20) 02/03/24 20:17 Sodium 136 mmol/L (136-145) 02/03/24 20:17 Potassium 3.0 mmol/L (3.5-5.1) L 02/03/24 20:17 Chloride 92 mmol/L (98-107) L 02/03/24 20:17 Carbon Dioxide 35 mmol/L (21-32) H 02/03/24 20:17 Anion Gap 9 (3-11) 02/03/24 20:17 BUN 26 mg/dl (6-23) H 02/03/24 20:17 Creatinine 2.22 mg/dl (0.6-1.2) H 02/03/24 20:17 Est Cr Clr Drug Dosing 27.8 ml/min 02/03/24 20:17 Est GFR ( Amer) 26.5 ml/min 02/03/24 20:17 Est GFR (Non-Af Amer) 22.8 ml/min 02/03/24 20:17 BUN/Creatinine Ratio 11.7 (10-20) 02/03/24 20:17 Glucose 193 mg/dl (70-99(Fasting)) H 02/03/24 20:17 Calcium 9.9 mg/dl (8.6-10.3) 02/03/24 20:17 Phosphorus 3.3 mg/dl (2.5-4.9) 02/03/24 20:17 Magnesium 2.9 mg/dl (1.7-2.4) H 02/03/24 20:17 Total Bilirubin 0.8 mg/dl (0.2-1.0) 02/03/24 20:17 AST 33 U/L (13-39) 02/03/24 20:17 ALT 13 U/L (7-52) 02/03/24 20:17 Alkaline Phosphatase 66 U/L (34-104) 02/03/24 20:17 Total Creatine Kinase 758 U/L (26-192) H 02/03/24 20:17 Troponin I High Sens 6.3 pg/ml (0-14) 02/03/24 20:17 Total Protein 7.4 gm/dl (6.0-8.3) 02/03/24 20:17 Albumin 4.2 gm/dl (3.4-5.0) 02/03/24 20:17 Globulin 3.2 gm/dl (2.5-4.0) 02/03/24 20:17 Albumin/Globulin Ratio 1.3 (0.9-2) 02/03/24 20:17 Procalcitonin 0.06 ng/ml (0-0.5) 02/03/24 20:18 TSH Cancelled 02/03/24 20:18 Urine Color Yellow 02/03/24 21:20 Urine Appearance Cloudy (Clear) A 02/03/24 21:20 Urine pH 5.5 (4.5-7.5) 02/03/24 21:20 Ur Specific [place] 1.014 (1.000-1.030) 02/03/24 21:20 Urine Protein 2+ (Negative) H 02/03/24 21:20 Urine Glucose (UA) Negative (Negative) 02/03/24 21:20 Urine Ketones Negative (Negative) 02/03/24 21:20 Urine Blood 3+ (Negative) H 02/03/24 21:20 Urine Nitrite Negative (Negative) 02/03/24 21:20 Urine Bilirubin Negative (Negative) 02/03/24 21:20 Urine Urobilinogen Negative (Negative) 02/03/24 21:20 Ur Leukocyte Esterase Negative (Negative) 02/03/24 21:20 Urine WBC (Auto) 0-5 /hpf (0-5) 02/03/24 21:20 Urine RBC (Auto) 0-2 /hpf (0-2) 02/03/24 21:20 U Hyaline Cast (Auto) >20 /lpf (0-2) H 02/03/24 21:20 U Epithel Cells (Auto) 3-5 /hpf (0-2) H 02/03/24 21:20 Urine Bacteria (Auto) None Seen (None Seen) 02/03/24 21:20 Hyaline Casts Present /lpf (None Presnt) A 02/03/24 21:[address] 02/03/24 19:53 CT SCAN OF THE BRAIN WITHOUT IV CONTRAST CLINICAL HISTORY: Head injury. Dizziness. COMPARISON STUDY: No priors. TECHNIQUE: Unenhanced axial CT scan of the brain is performed from the vertex to the skull base. A dose lowering technique was utilized adhering to the principles of ALARA. CT DOSE: 657.02 mGy.cm FINDINGS: Brain parenchyma: There is age-related involutional change noting mild microangiopathic disease. There is no hemorrhage, mass effect, or evidence of acute territorial ischemia by CT criteria. [place]-white matter differentiation is preserved. No extra-axial fluid collection is seen. Ventricles, sulci, cisterns: Prominent secondary to involutional change. Intracranial vasculature: There is atherosclerotic calcification of the cavernous carotid and vertebral arteries. Calvarium: Unremarkable. Sinuses and mastoids: The visualized paranasal sinuses are clear. There is a small left mastoid effusion. The right mastoid air cells are well pneumatized. Cerumen is noted in the right external auditory canal. Orbits: The bony orbits are grossly intact. IMPRESSION: There is no hemorrhage, mass effect, or evidence of acute territorial ischemia by CT criteria. ACT 112: Negative or not required by law. Electronically signed by: Andrey Loaiza M.D. 02/03/2024 8:46 PM Chest X-Ray 02/03/24 19:57 SINGLE VIEW CHEST CLINICAL HISTORY: Falls. Dizziness FINDINGS: An AP, portable, upright chest radiograph is obtained. No prior studies are available for comparison at the time of dictation. The cardiomediastinal silhouette is unremarkable. Nonspecific interstitial thickening is likely chronic. There is mild bibasilar scarring/atelectasis. No airspace consolidation or large pleural effusion is identified. No pneumothorax is seen. The skeletal structures are osteopenic. The bony thorax is grossly intact. Arthritic change is noted in the shoulders. IMPRESSION: No acute cardiopulmonary abnormality. ACT 112: Negative or not required by law. Electronically signed by: Andrey Loaiza M.D. 02/03/2024 8:42 PM Code Status & VTE Plan VTE Prophylaxis Plan VTE Prophylaxis will be ordered: Yes PG Care Time/CCT Total # of Minutes Spent Total Time Spent with Patient: Total time spent is greater than 50% in coordination of care (as documented) at patient's floor/unit and/or counseling patient: Coding Level of Care Code 33917 INT INP/OBS CARE 3/75MIN Diagnoses Hypotension I95.1 Hypotension type: orthostatic hypotension LIDIA (acute kidney injury) N17.9 Weakness R53.1 Elevated creatine kinase R74.8 (1) Hypotension Hypotension type: orthostatic hypotension Qualified Code(s): I95.1 - Orthostatic hypotension
[2024-02-03 22:43] LABS: Magnesium 2.9 mg/dl (1.7-2.4); Phosphorus 3.3 mg/dl (2.5-4.9)
--- NOTE | 2024-02-03 22:56 | Emergency Department Note ---
Impression & Plan Hypokalemia, Peripheral arterial disease, Hypotension ED Provider Note CHIEF COMPLAINT: Dizziness, fall with head injury HISTORY OF PRESENT ILLNESS: This 63-year-old female patient past medical history of peripheral arterial disease, hypokalemia, diabetic foot wound with osteomyelitis with complaints of presents to the emergency department a fall yesterday. She states her elevated seat on the toilet was not secured properly. She leaned on 1 side and it slipped to the ground. She fell and hit her head on the bathroom cabinet. She has been dizzy for most of the day today. She denies any vomiting but has had some nausea. She denies any loss of consciousness at the time of the fall. Patient mentions that she was told by the tech performing her lower extremity ultrasound with ABIs that her blood pressure was low. She states she has never been told that in the past. REVIEW OF SYSTEMS: A review of systems was performed with positives and pertinent negatives listed in the history of present illness. 10 systems were reviewed and are otherwise negative. ALLERGIES: see below MEDICATIONS: see below PMH: see below SOCIAL HISTORY: see below DDx: Dehydration, medication effect, renal failure, infectious etiology such as UTI, pneumonia, viral illness, concussion, intracranial hemorrhage among others. PHYSICAL EXAM: Vital signs reviewed. SBP noted to be low. General: Chronically ill-appearing 63-year-old female, in no significant distress. HEENT: No scleral icterus, PERRLA, neck supple. Moist mucous membranes. Cardiovascular: Regular rate and rhythm, no extra sounds. Pulmonary: Clear to auscultation bilaterally, normal work of breathing. Abdomen: Soft, nontender, nondistended, positive bowel sounds. Musculoskeletal: Atraumatic, no peripheral edema. Neurologic: Patient awake alert and oriented x 3, speech is clear Skin: Warm, dry, no rash EMERGENCY DEPARTMENT COURSE/MDM: This patient was evaluated and appeared to be in no significant distress. Patient's blood pressure was noted to be low in the 80s to 90 systolic. IV access was obtained and the patient was hydrated with 500 cc bolus of normal saline solution. She was then given a maintenance rate of 125/h. Laboratory work reveals an acute kidney injury with a creatinine of 2.2. Orthostatic VS are positive, SBP 126-> 66 up standing. UA is negative for infection. Patient does appear to be slightly dry with a BUN of 26 this is unlikely to explain the LIDIA altogether. Head CT was performed and reveals no evidence of acute traumatic findings from the patient's fall. She is noted to be hypokalemic at 3.0 and was given 40 M EQ of p.o. potassium. Patient's case was discussed with the hospitalist, Dr. Burrell who will evaluate the patient for admission and further management. Patient is aware of the plan and agrees. MONITORING: An order for cardiac monitoring was placed and the patient is noted to be in a NSR at 71 beats per minute. RADIOLOGY: Chest x-ray to my interpretation reveals no evidence of focal lung consolidation or failure. Head CT per radiology reveals no evidence of acute intracranial abnormality. EKG: To my interpretation reveals normal sinus rhythm at 71 bpm. Left axis deviation. QTc of 478. No PVC, no PAC. DISPOSITION: Admission Past Med/Surg History Problem List (Updated 02/04/24 @ 00:35 by Katrin Dial MD) Hypotension (Acute) Cubital tunnel syndrome Carpal tunnel syndrome History of partial amputation of toe of right foot Elevated blood pressure reading Peripheral arterial disease (Acute) Stenosis of right femoral artery Encounter for pre-operative examination Hypokalemia (Acute) Diabetic foot ulcer with osteomyelitis hx-surgery to remove Foot pain Diabetic infection of right foot (Acute) Loss of protective sensation of skin of foot Lower extremity edema Hyperglycemia due to type 1 diabetes mellitus Nausea & vomiting (Acute) Elevated troponin (Acute) Dyslipidemia 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 Diabetes Surgical History History of partial amputation of toe of right foot (07/2023) History of carpal tunnel release (08/2023) Hx of colonoscopy History of tonsillectomy and adenoidectomy initial sx age 2, revision age 12 Hx of total hysterectomy with removal of both tubes and ovaries also removed gallbladder and appendix at same time Family History Mother Myocardial infarction Denies family history of Ovarian cancer Prostate cancer Breast cancer Colorectal cancer Social History Smoking Status: Never smoker Second Hand Exposure: Yes (sister smokes, lives w/pt.); Do You Dip or Chew Tobacco: No; Hx Alcohol Use: Yes Alcohol type: beer Alcohol Intake Frequency: Monthly or Less Hx Substance Use: No Preferred Language: [place] Communication Ability: Effective Visual Impairment: No Limitations Hearing Ability: Normal Wood Scrap Handler Required: No Beliefs That Will Affect Care: None marital status: Single Current Living Situation: Family Current Living Situation Comment: lives w/ sister current occupational status: retired Other Information That Helps Us Care for You: No Feels Safe at Home: Yes Safety Concerns: Feels Safe At This Time Childhood Exposure to Second-Hand Smoke: Yes Diet: low carbohydrate caffeine: Yes during the past year weight has: remained stable Dental Care, Regularly: No Physical Activity Frequency: Daily Seatbelt Use: always Sunscreen Use: No Assistive Devices: None Allergies Allergies Allergy/AdvReac Type Severity Reaction Status Date / Time tetanus toxoid, adsorbed AdvReac Intermediate SWELLING Verified 02/03/24 21:24 AT SITE AND REDNESS Home Meds Home Medications Medication Instructions Recorded Confirmed blood sugar diagnostic (OneTouch 09/04/22 08/30/23 Ultra Test strips) blood-glucose meter (OneTouch 09/04/22 08/30/23 Ultra2 Meter) blood-glucose transmitter (Dexcom 09/04/22 08/30/23 G6 Transmitter device) insulin aspart U-100 100 unit/mL 0 sliding scale dose subcut TIDM 08/14/23 02/03/24 subcutaneous solution (Novolog U-100 Insulin aspart) furosemide 40 mg tablet (Lasix) 40 mg PO DAILY 02/03/24 02/03/24 Previous Rx's Medication Instructions Recorded blood-glucose meter,continuous #1 ea 02/26/23 (Dexcom G7 Courtroom Deputy Or Calendar Clerk) pen needle, diabetic 32 gauge x #100 ea 02/26/23 5/16" (Comfort EZ Pen [place]) blood-glucose sensor (Dexcom G7 #9 ea 02/28/23 Sensor device) insulin detemir U-100 100 unit/mL 11 unit (0.11 mL) subcut BID 90 08/07/23 (3 mL) subcutaneous pen (Levemir days #21 mL FlexPen) rosuvastatin 40 mg tablet 40 mg PO DAILY #90 tabs 08/24/23 ibuprofen 200 mg tablet (Advil) 600 mg (3 x 200 mg) PO QID PRN 08/30/23 fever or pain #30 tabs Results & Data (ED) Vital Signs Vital Signs - 24 hr 02/03/24 19:44 02/03/24 19:48 02/03/24 19:49 Temperature 36.8 C Temperature Source Oral Pulse Rate - Lying Pulse Rate - Sitting Pulse Rate - Standing Pulse Rate 74 72 74 Pulse Rate from SpO2 Sensor 72 Pulse Rhythm Regular Pulse Strength Normal Respiratory Rate 18 17 Respiratory Effort / Characteristics Non-Labored Respiratory Depth Normal Respiratory Pattern Regular Blood Pressure - Lying Blood Pressure - Sitting Blood Pressure- Standing Blood Pressure 114/72 Blood Pressure [Right Arm] Blood Pressure Mean 86 Blood Pressure Mean [Right Arm] Pulse Oximetry 96 95 Oxygen Delivery Method Room Air Sepsis Recent Fever Within 48 Hours No Sepsis New/Unexplained Change in Mental Status No Sepsis Action Taken by Nursing No Action Required 02/03/24 19:51 02/03/24 19:57 02/03/24 20:00 Temperature Temperature Source Pulse Rate - Lying Pulse Rate - Sitting Pulse Rate - Standing Pulse Rate 76 78 Pulse Rate from SpO2 Sensor 76 78 Pulse Rhythm Pulse Strength Respiratory Rate 22 19 Respiratory Effort / Characteristics Respiratory Depth Respiratory Pattern Blood Pressure - Lying Blood Pressure - Sitting Blood Pressure- Standing Blood Pressure Blood Pressure [Right Arm] Blood Pressure Mean Blood Pressure Mean [Right Arm] Pulse Oximetry 96 97 95 Oxygen Delivery Method Room Air Sepsis Recent Fever Within 48 Hours Sepsis New/Unexplained Change in Mental Status Sepsis Action Taken by Nursing 02/03/24 20:04 02/03/24 20:12 02/03/24 20:27 Temperature Temperature Source Pulse Rate - Lying 74 Pulse Rate - Sitting 70 Pulse Rate - Standing 72 Pulse Rate 76 72 Pulse Rate from SpO2 Sensor 72 Pulse Rhythm Pulse Strength Respiratory Rate 19 20 Respiratory Effort / Characteristics Respiratory Depth Respiratory Pattern Blood Pressure - Lying 124/52 L Blood Pressure - Sitting 99/63 L Blood Pressure- Standing 66/48 L Blood Pressure Blood Pressure [Right Arm] Blood Pressure Mean Blood Pressure Mean [Right Arm] Pulse Oximetry 92 Oxygen Delivery Method Sepsis Recent Fever Within 48 Hours Sepsis New/Unexplained Change in Mental Status Sepsis Action Taken by Nursing 02/03/24 20:30 02/03/24 20:48 02/03/24 20:51 Temperature Temperature Source Pulse Rate - Lying Pulse Rate - Sitting Pulse Rate - Standing Pulse Rate 73 74 Pulse Rate from SpO2 Sensor 73 74 Pulse Rhythm Pulse Strength Respiratory Rate 16 11 L Respiratory Effort / Characteristics Respiratory Depth Respiratory Pattern Blood Pressure - Lying Blood Pressure - Sitting Blood Pressure- Standing Blood Pressure Blood Pressure [Right Arm] 104/58 L Blood Pressure Mean Blood Pressure Mean [Right Arm] 73 Pulse Oximetry 95 94 Oxygen Delivery Method Sepsis Recent Fever Within 48 Hours Sepsis New/Unexplained Change in Mental Status Sepsis Action Taken by Nursing 02/03/24 21:00 02/03/24 21:18 02/03/24 21:24 Temperature Temperature Source Pulse Rate - Lying Pulse Rate - Sitting Pulse Rate - Standing Pulse Rate 79 75 Pulse Rate from SpO2 Sensor Pulse Rhythm Pulse Strength Respiratory Rate 15 14 Respiratory Effort / Characteristics Respiratory Depth Respiratory Pattern Blood Pressure - Lying Blood Pressure - Sitting Blood Pressure- Standing Blood Pressure Blood Pressure [Right Arm] 103/49 L Blood Pressure Mean Blood Pressure Mean [Right Arm] 67 Pulse Oximetry Oxygen Delivery Method Sepsis Recent Fever Within 48 Hours Sepsis New/Unexplained Change in Mental Status Sepsis Action Taken by Nursing 02/03/24 21:30 02/03/24 21:45 02/03/24 21:51 Temperature Temperature Source Pulse Rate - Lying Pulse Rate - Sitting Pulse Rate - Standing Pulse Rate 79 73 Pulse Rate from SpO2 Sensor Pulse Rhythm Pulse Strength Respiratory Rate 18 15 Respiratory Effort / Characteristics Respiratory Depth Respiratory Pattern Blood Pressure - Lying Blood Pressure - Sitting Blood Pressure- Standing Blood Pressure 89/54 L Blood Pressure [Right Arm] Blood Pressure Mean 62 Blood Pressure Mean [Right Arm] Pulse Oximetry Oxygen Delivery Method Sepsis Recent Fever Within 48 Hours Sepsis New/Unexplained Change in Mental Status Sepsis Action Taken by Nursing 02/03/24 21:55 02/03/24 22:00 02/03/24 22:00 Temperature Temperature Source Pulse Rate - Lying Pulse Rate - Sitting Pulse Rate - Standing Pulse Rate 74 Pulse Rate from SpO2 Sensor Pulse Rhythm Pulse Strength Respiratory Rate 10 L Respiratory Effort / Characteristics Respiratory Depth Respiratory Pattern Blood Pressure - Lying Blood Pressure - Sitting Blood Pressure- Standing Blood Pressure 97/64 L 87/60 L Blood Pressure [Right Arm] Blood Pressure Mean 71 67 Blood Pressure Mean [Right Arm] Pulse Oximetry Oxygen Delivery Method Sepsis Recent Fever Within 48 Hours Sepsis New/Unexplained Change in Mental Status Sepsis Action Taken by Nursing 02/03/24 22:21 Temperature Temperature Source Pulse Rate - Lying Pulse Rate - Sitting Pulse Rate - Standing Pulse Rate 76 Pulse Rate from SpO2 Sensor Pulse Rhythm Pulse Strength Respiratory Rate 13 Respiratory Effort / Characteristics Respiratory Depth Respiratory Pattern Blood Pressure - Lying Blood Pressure - Sitting Blood Pressure- Standing Blood Pressure Blood Pressure [Right Arm] Blood Pressure Mean Blood Pressure Mean [Right Arm] Pulse Oximetry Oxygen Delivery Method Sepsis Recent Fever Within 48 Hours Sepsis New/Unexplained Change in Mental Status Sepsis Action Taken by Jail Medications Current Medication List: was personally reviewed by me Laboratory Data Attestation: I reviewed the patient's lab results. 02/03/24 20:17 02/03/24 20:17 Lab Results 02/03/24 02/03/24 02/03/24 Range/Units 20:17 20:18 21:20 WBC 13.00 H (4.8-10.8) K/ul RBC 4.99 (4.20-5.40) M/uL Hgb 15.5 (12.0-16.0) g/dl Hct 43.2 (37.0-47.0) % MCV 86.6 (80.0-100.0) fL MCH 31.1 (25.0-34.0) pg MCHC 35.9 (32.0-36.0) g/dL RDW Std Deviation 40.8 (36.4-46.3) fL RDW Coeff of [place] 13.0 (11.5-14.5) % Plt Count 223 (130-400) K/uL MPV 10.2 (9.4-12.4) fL Immature Gran % (Auto) 0.5 % Neut % (Auto) 68.3 % Lymph % (Auto) 18.8 % [place] % (Auto) 11.1 % Eos % (Auto) 0.8 % Baso % (Auto) 0.5 % Neut # (Auto) 8.87 H (1.40-6.50) K/uL Lymph # (Auto) 2.45 (1.20-3.40) K/uL [place] # (Auto) 1.44 H (0.11-0.59) K/uL Eos # (Auto) 0.10 (0.00-0.50) K/uL Baso # (Auto) 0.07 (0.00-0.20) K/uL Immature Gran # (Auto) 0.07 (0.01-0.20) K/uL Sodium 136 (136-145) mmol/L Potassium 3.0 L (3.5-5.1) mmol/L Chloride 92 L (98-107) mmol/L Carbon Dioxide 35 H (21-32) mmol/L Anion Gap 9 (3-11) BUN 26 H (6-23) mg/dl Creatinine 2.22 H (0.6-1.2) mg/dl Est Cr Clr Drug Dosing 27.8 ml/min Est GFR ( Amer) 26.5 ml/min Est GFR (Non-Af Amer) 22.8 ml/min BUN/Creatinine Ratio 11.7 (10-20) Glucose 193 H (70-99(Fasting)) mg/dl Calcium 9.9 (8.6-10.3) mg/dl Phosphorus 3.3 (2.5-4.9) mg/dl Magnesium 2.9 H (1.7-2.4) mg/dl Total Bilirubin 0.8 (0.2-1.0) mg/dl AST 33 (13-39) U/L ALT 13 (7-52) U/L Alkaline Phosphatase 66 (34-104) U/L Total Creatine Kinase 758 H (26-192) U/L Troponin I High Sens 6.3 (0-14) pg/ml Total Protein 7.4 (6.0-8.3) gm/dl Albumin 4.2 (3.4-5.0) gm/dl Globulin 3.2 (2.5-4.0) gm/dl Albumin/Globulin Ratio 1.3 (0.9-2) Procalcitonin 0.06 (0-0.5) ng/ml TSH Cancelled Urine Color Yellow Urine Appearance Cloudy A (Clear) Urine pH 5.5 (4.5-7.5) Ur Specific [place] 1.014 (1.000-1.030) Urine Protein 2+ H (Negative) Urine Glucose (UA) Negative (Negative) Urine Ketones Negative (Negative) Urine Blood 3+ H (Negative) Urine Nitrite Negative (Negative) Urine Bilirubin Negative (Negative) Urine Urobilinogen Negative (Negative) Ur Leukocyte Esterase Negative (Negative) Urine WBC (Auto) 0-5 (0-5) /hpf Urine RBC (Auto) 0-2 (0-2) /hpf U Hyaline Cast (Auto) >20 H (0-2) /lpf U Epithel Cells (Auto) 3-5 H (0-2) /hpf Urine Bacteria (Auto) None Seen (None Seen) Hyaline Casts Present A (None Presnt) /lpf Administered Medications Lactated Ringer's (Lr) 1,000 mls @ 125 mls/hr IV .Q8H KELLY Stop: 02/04/24 13:59 Last Admin: 02/03/24 22:17 Dose: 125 mls/hr Documented By: CHANTEL Discontinued Medications Sodium Chloride (Nss) 500 mls @ 999 mls/hr IV .Q31M KELLY Stop: 02/03/24 20:30 Last Infusion: 02/03/24 20:51 Dose: Infused Documented By: Admin: 02/03/24 20:08 Dose: 999 mls/hr Documented By: CHANTEL Sodium Chloride (Nss) 1,000 mls @ 125 mls/hr IV .Q8H KELLY Stop: 03/04/24 21:14 Last Admin: 02/03/24 22:02 Dose: Not Given Documented By: CHANTEL Lactated Ringer's (Lr) 1,000 mls @ 999 mls/hr IV .Q1H1M ONE Stop: 02/04/24 00:06 Last Infusion: 02/04/24 00:36 Dose: Infused Documented By: Admin: 02/03/24 23:31 Dose: 999 mls/hr Documented By: CHANTEL Potassium Chloride (Potassium Chloride Crtab 20 Meq Tabcr) 40 meq PO NOW STA Stop: 02/03/24 21:45 Last Admin: 02/03/24 22:17 Dose: 40 meq Documented By: CHANTEL Imaging Data Radiologist's Impression: Head CT 02/03/24 19:53 CT SCAN OF THE BRAIN WITHOUT IV CONTRAST CLINICAL HISTORY: Head injury. Dizziness. COMPARISON STUDY: No priors. TECHNIQUE: Unenhanced axial CT scan of the brain is performed from the vertex to the skull base. A dose lowering technique was utilized adhering to the principles of ALARA. CT DOSE: 657.02 mGy.cm FINDINGS: Brain parenchyma: There is age-related involutional change noting mild microangiopathic disease. There is no hemorrhage, mass effect, or evidence of acute territorial ischemia by CT criteria. [place]-white matter differentiation is preserved. No extra-axial fluid collection is seen. Ventricles, sulci, cisterns: Prominent secondary to involutional change. Intracranial vasculature: There is atherosclerotic calcification of the cavernous carotid and vertebral arteries. Calvarium: Unremarkable. Sinuses and mastoids: The visualized paranasal sinuses are clear. There is a small left mastoid effusion. The right mastoid air cells are well pneumatized. Cerumen is noted in the right external auditory canal. Orbits: The bony orbits are grossly intact. IMPRESSION: There is no hemorrhage, mass effect, or evidence of acute territorial ischemia by CT criteria. ACT 112: Negative or not required by law. Electronically signed by: Andrey Loaiza M.D. 02/03/2024 8:46 PM Chest X-Ray 02/03/24 19:57 SINGLE VIEW CHEST CLINICAL HISTORY: Falls. Dizziness FINDINGS: An AP, portable, upright chest radiograph is obtained. No prior studies are available for comparison at the time of dictation. The cardiomediastinal silhouette is unremarkable. Nonspecific interstitial thickening is likely chronic. There is mild bibasilar scarring/atelectasis. No airspace consolidation or large pleural effusion is identified. No pneumothorax is seen. The skeletal structures are osteopenic. The bony thorax is grossly intact. Arthritic change is noted in the shoulders. IMPRESSION: No acute cardiopulmonary abnormality. ACT 112: Negative or not required by law. Electronically signed by: Andrey Loaiza M.D. 02/03/2024 8:42 PM Discharge Plan Visit Data Chief Complaint: Hypotension Stated Complaint: Fall Last Night, Hypotension, Dizziness ED Provider: Katrin Dial Discharge Problem: Hypokalemia, Peripheral arterial disease, Hypotension Discharge Instructions Interventions: ED Discharge Assessment Last Done: 02/03/24 23:39 Discharge Problem: Hypotension Qualifiers: Hypotension type: orthostatic hypotension Qualified Code(s): I95.1 - Orthostatic hypotension
[2024-02-03] MEDS: LACTATED RINGER'S 1,000 ML IV ONE (23:31)
[2024-02-03] MEDS ORDERED: GLUCAGON FOR INJ 1 MG VIAL SQ PRN (23:38)
[2024-02-03] MEDS ORDERED: CARBOHYDRATES FOR HYPOGLYCEMIA PO PRN (23:38)
[2024-02-03] MEDS ORDERED: DEXTROSE 50% 50 ML SYRINGE IV PRN (23:38)
[2024-02-03] MEDS ORDERED: GLUCOSE 40% GEL 15 GM TUBE PO PRN (23:38)
[2024-02-03] MEDS ORDERED: GLUCOSE 10 TAB/TUBE PO PRN (23:38)
[2024-02-03] MEDS ORDERED: POLYETHYLENE (MIRALAX) 17 GM PACK PO PRN (23:38)
[2024-02-03] MEDS ORDERED: ONDANSETRON INJ 2 MG/ML 2 ML VIAL IV PRN (23:38)
[2024-02-04 01:10] LABS: Thyroid Stimulating Hormone 163.018 uIu/ml (0.300-4.500)
[2024-02-04 03:56] LABS: T4 Free Thyroxine 0.31 ng/dl (0.61-1.60)
[2024-02-04 04:35] LABS: Hematocrit (blood only) 37.9 % (37.0-47.0); Hemoglobin 13.5 g/dl (12.0-16.0); Mean Corpuscular Hgb Conc 35.6 g/dL (32.0-36.0); Mean Corpuscular Volume 87.1 fL (80.0-100.0); Mean Platelet Volume 10.1 fL (9.4-12.4); Platelet Count 200 K/uL (130-400); Red Blood Count 4.35 M/uL (4.20-5.40); White Blood Count 12.57 K/ul (4.8-10.8)
[2024-02-04 05:12] LABS: BUN Creatinine Ratio 12.9 (10-20); Calcium 9.2 mg/dl (8.6-10.3); Creatinine Clr Calc Pharmacy 31.8 ml/min; Est GFR (African American) 31.2 ml/min; Est GFR (Non-African American) 26.9 ml/min; Potassium 2.8 mmol/L (3.5-5.1)
[2024-02-04] MEDS: INSULIN ASPART PER UNIT CHARGE SC STA (06:10)
[2024-02-04] MEDS: INSULIN HUMAN REGULAR PER UNIT 7 UNITS in SYRINGE 6.93 ML IV STA (06:14)
[2024-02-04] MEDS: LEVOTHYROXINE SODIUM 112 MCG TABLET PO SCH (06:18)
[2024-02-04] MEDS: ACETAMINOPHEN 325 MG TAB PO PRN (07:15)
[2024-02-04] MEDS: POTASSIUM CHLORIDE CRTAB 20 MEQ TABCR PO STA (08:24)
[2024-02-04] MEDS: HEPARIN SOD 5,000 UNIT/0.5 ML VIAL SQ SCH (08:24)
[2024-02-04 08:36] LABS: Estimated Average Glucose 209 mg/dl; Hemoglobin A1C 8.9 % (4.5-5.6)
[2024-02-04] MEDS ORDERED: ROSUVASTATIN CALCIUM 10 MG TAB PO SCH (09:00)
[2024-02-04] MEDS: LANTUS PER UNIT CHARGE SQ SCH (09:07)
[2024-02-04] MEDS: INSULIN ASPART PER UNIT CHARGE SC SCH (09:08)
[2024-02-04] MEDS: POTASSIUM CHLORIDE / WTR 10 MEQ/100 ML PLCT IV SCH (09:30)
--- NOTE | 2024-02-04 11:28 | Electrocardiogram Report ---
Test Reason : Blood Pressure : / mmHG Vent. Rate : 071 BPM Atrial Rate : 071 BPM P-R Int : 182 ms QRS Dur : 116 ms QT Int : 440 ms P-R-T Axes : 030 -45 046 degrees QTc Int : 478 ms Normal sinus rhythm Left axis deviation Minimal voltage criteria for LVH, may be normal variant Abnormal ECG When compared with ECG of 31-JAN-2023 04:42, QRS duration has increased Confirmed by Haja Pulliam ([id number]) on 02/04/2024 11:28:36 AM Referred By: REFERRED SELF Confirmed By:Gerardo Pulliam
--- NOTE | 2024-02-04 12:52 | Hospitalist Progress Note ---
Date of Service February 04, 2024 Assessment & Plan (1) Hypotension: Plan: -suspect mostly due to volume contraction. -patient reported 80mg lasix daily at home. - currently on hold -Reviewed labs from 02/04/2024: BUN 25 and Creatinine 1.94 which appear to be downtrending. Random cortisol WNL at 8.05. -02/03/2024 procalcitonin 0.6. CXR and head CT negative. UA with >20 casts. -Continue IVF (2) LIDIA (acute kidney injury): Plan: -Elevation of BUN and Cr from baseline. -IVF with LR at 125mL/hr x 2L -Repeat BMP and CK in AM -Avoid nephrotoxic agents -Renal dosing where needed (3) Weakness: Plan: -Patient with generalized weakness, fall. Likely secondary to dehydration, LIDIA and hypokalemia. -IVF and electrolyte repletion -potassium low 02/04/2024 at 2.8. Ordered 4- 10meq bags with plans to recheck potassium in AM. -reviewed Head CT from 02/03/2024 which was negative. -Fall precautions -PT/OT evaluation (4) Elevated creatine kinase: Plan: -Elevation of CK at 632. -UA with +Blood and no RBCs. -Continue IVF LR at 125mL/hr x 2L ordered -Repeat CK in AM -Hold Crestor (5) Hypothyroidism: Plan: -TSH 02/03/2024 significantly elevated at 163.018 with low free T4 of 0.31. -Placed back on Levothyroxine 112mcg PO daily. -Per patient was told she no longer needed this a few months ago. She has follow up established with endocrinology at end of month. Plan DM -Lantus 5u daily with ISS -Reviewed Hgb A1c 8.9 and glucose level 321. -consulted pharmacy for glycemic management. Hyperlipidemia: chronic. stable -Hold Crestor for now in setting of elevated CK F/E/N - LR at 125mL/hr x 2L, KCl 40mEq given, repeat labs in AM, CC diet as tolerated Ppx - heparin 5000u BID Code - Full Dispo - Admit to medical with telemetry Admission and Anticipated Discharge Date Admission Date: February 03, 2024 Subjective Patient seen and examined this afternoon at bedside. Patient reports that she is feeling better today. She reports she needed assistance to use the restroom but notices improvement in dizziness. She reports no chest pain or shortness of breath. She states that she has been off her levothyroxine for a few months now. It was discontinued by endocrinology. She also reports she uses Lasix 80mg once daily at home for management of leg edema. She states she does not like to wear compression stockings at home. She also does not elevate her feet often. She did note she drinks about 4 large cups of water daily. Physical Exam 2 Constitutional: WD/WN, vitals as above Eyes: PERRL, conjunctivae normal, anicteric sclerae ENMT: external ear and nose normal, oropharynx normal Neck: trachea midline, no thyromegaly Respiratory: normal respiratory effort, lungs clear to auscultation Cardiovascular: RRR, no murmur, no edema Psychiatric: A+Ox3, euthymic affect Results & Data Results & Data Vital Signs (Past 12 Hours) Vital Signs Pulse Pulse Resp BP BP Pulse Ox O2 Del Method 02/04/24 07:20 71 18 101/60 94 Room Air 02/04/24 07:15 69 02/04/24 06:41 73 14 97 02/04/24 06:33 73 24 97 02/04/24 06:29 73 15 96 02/04/24 06:15 72 19 97 02/04/24 06:00 117/61 02/04/24 06:00 69 14 92 02/04/24 05:44 65 11 L 91 02/04/24 05:38 68 6 L 92 02/04/24 05:23 68 10 L 92 02/04/24 04:21 67 12 94 02/04/24 04:15 69 17 97 02/04/24 03:54 69 18 95 02/04/24 03:48 70 19 96 02/04/24 03:33 70 18 95 02/04/24 03:27 70 16 94 02/04/24 03:26 70 19 92/63 L 95 Room Air 02/04/24 03:15 73 16 94 02/04/24 02:54 71 16 92 02/04/24 02:24 71 16 94 02/04/24 02:15 72 15 94 02/04/24 02:00 74 20 95 02/04/24 01:42 77 22 95 02/04/24 01:36 74 20 95 02/04/24 01:27 73 19 96 02/04/24 01:00 77 16 93 02/04/24 00:51 70 14 95 Laboratory Results 02/04/24 04:19 02/04/24 04:[address] 02/03/24 19:53 CT SCAN OF THE BRAIN WITHOUT IV CONTRAST CLINICAL HISTORY: Head injury. Dizziness. COMPARISON STUDY: No priors. TECHNIQUE: Unenhanced axial CT scan of the brain is performed from the vertex to the skull base. A dose lowering technique was utilized adhering to the principles of ALARA. CT DOSE: 657.02 mGy.cm FINDINGS: Brain parenchyma: There is age-related involutional change noting mild microangiopathic disease. There is no hemorrhage, mass effect, or evidence of acute territorial ischemia by CT criteria. Montano-white matter differentiation is preserved. No extra-axial fluid collection is seen. Ventricles, sulci, cisterns: Prominent secondary to involutional change. Intracranial vasculature: There is atherosclerotic calcification of the cavernous carotid and vertebral arteries. Calvarium: Unremarkable. Sinuses and mastoids: The visualized paranasal sinuses are clear. There is a small left mastoid effusion. The right mastoid air cells are well pneumatized. Cerumen is noted in the right external auditory canal. Orbits: The bony orbits are grossly intact. IMPRESSION: There is no hemorrhage, mass effect, or evidence of acute territorial ischemia by CT criteria. ACT 112: Negative or not required by law. Electronically signed by: Andrey Loaiza M.D. 02/03/2024 8:46 PM Chest X-Ray 02/03/24 19:57 SINGLE VIEW CHEST CLINICAL HISTORY: Falls. Dizziness FINDINGS: An AP, portable, upright chest radiograph is obtained. No prior studies are available for comparison at the time of dictation. The cardiomediastinal silhouette is unremarkable. Nonspecific interstitial thickening is likely chronic. There is mild bibasilar scarring/atelectasis. No airspace consolidation or large pleural effusion is identified. No pneumothorax is seen. The skeletal structures are osteopenic. The bony thorax is grossly intact. Arthritic change is noted in the shoulders. IMPRESSION: No acute cardiopulmonary abnormality. ACT 112: Negative or not required by law. Electronically signed by: Andrey Loaiza M.D. 02/03/2024 8:42 PM PG Care Time/CCT Total # of Minutes Spent Total Time Spent with Patient: Total time spent is greater than 50% in coordination of care (as documented) at patient's floor/unit and/or counseling patient: Coding Level of Care Code 82281 SUB INP/OBS CARE 3/50MIN Diagnoses Hypotension I95.1 Hypotension type: orthostatic hypotension LIDIA (acute kidney injury) N17.9 Weakness R53.1 Elevated creatine kinase R74.8 Hypothyroidism, unspecified type E03.9 Hypothyroidism type: unspecified (1) Hypotension Hypotension type: orthostatic hypotension Qualified Code(s): I95.1 - Orthostatic hypotension (5) Hypothyroidism Hypothyroidism type: unspecified Qualified Code(s): E03.9 - Hypothyroidism, unspecified
[2024-02-04] MEDS ORDERED: PHARMACY GLYCEMIC MGMT CONSULT PRN (12:54)
--- NOTE | 2024-02-04 14:41 | Pharmacy Report ---
Pharmacy Glycemic Short Note 2 - Date of Service February 04, 2024 - Glycemic Short BSG Results (Last 24 hours): 02/03/24 02/04/24 02/04/24 20:17 04:19 08:31 Glucose 193 H 323 H* POC Glucose 283 H 02/04/24 12:13 Glucose POC Glucose 321 H* OUTPATIENT ANTIDIABETIC REGIMEN: * Levemir 11 units bid, novolog 10 units tidm + SSI ASSESSMENT: * 63 year old admitted with LIDIA/hypotension. Previous notes from outpatient Endo 07/2023 - verified current insulin dosing. Type 1 diabetic per notes. 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 Will give full outpatient basal dose now ~20 units (did get 5 units basal this AM). K is low this morning, awaiting repeat check - will hold on IV insulin until K results, but will give an additional 4 units SQ insulin x 1 now as well. Will tighten novolog with dinner and add on overnight checks. PLAN FOR INPATIENT GLYCEMIC CONTROL: * Hold outpatient oral diabetes medications * Basal insulin * Lantus 20 units x 1 now (in addition to 5 units this AM) * Will reassess dosing tomorrow AM * Bolus insulin * NovoLog per scale ACHS or Q6hrs while NPO * Goal Range: Low 110 mg/dL - High 140 mg/dL * Correction Factor: 30 mg/dL/unit * Nutritional / Prandial insulin per carb ratio of 1 unit per 10 grams CHO consumed
[2024-02-04] MEDS: LANTUS PER UNIT CHARGE SQ ONE (14:42)
[2024-02-04] MEDS: INSULIN ASPART PER UNIT CHARGE SC ONE (14:42)
[2024-02-04 15:20] LABS: BUN Creatinine Ratio 11.9 (10-20); Calcium 9.1 mg/dl (8.6-10.3); Creatinine Clr Calc Pharmacy 31.9 ml/min; Est GFR (African American) 31.4 ml/min; Est GFR (Non-African American) 27.1 ml/min; Potassium 3.7 mmol/L (3.5-5.1)
[2024-02-04] MEDS: ALUMINUM/MAGNESIUM SUSP 30 ML UDC PO PRN (22:32)
[2024-02-05] MEDS: INSULIN ASPART PER UNIT CHARGE SC SCH (00:25)
[2024-02-05 06:22] LABS: Basophils # (auto) 0.07 K/uL (0.00-0.20); Basophils % (auto) 0.8 %; Eosinophils # (auto) 0.18 K/uL (0.00-0.50); Hematocrit (blood only) 38.5 % (37.0-47.0); Hemoglobin 13.2 g/dl (12.0-16.0); Immature Granulocytes # (auto) 0.06 K/uL (0.01-0.20); Immature Granulocytes % (auto) 0.7 %; Lymphocytes # (auto) 2.98 K/uL (1.20-3.40); Lymphocytes % (auto) 32.6 %; Mean Corpuscular Hemoglobin 30.8 pg (25.0-34.0); Mean Corpuscular Hgb Conc 34.3 g/dL (32.0-36.0); Mean Platelet Volume 10.2 fL (9.4-12.4); Monocytes # (auto) 0.93 K/uL (0.11-0.59); Monocytes % (auto) 10.2 %; Neutrophils # (auto) 4.91 K/uL (1.40-6.50); Neutrophils % (auto) 53.7 %; Platelet Count 187 K/uL (130-400); RDW Coefficient of Variation 13.4 % (11.5-14.5); RDW Standard Deviation 43.9 fL (36.4-46.3); Red Blood Count 4.28 M/uL (4.20-5.40); White Blood Count 9.13 K/ul (4.8-10.8)
[2024-02-05 06:38] LABS: Blood Urea Nitrogen 24 mg/dl (6-23); Calcium 9.2 mg/dl (8.6-10.3); Carbon Dioxide 29 mmol/L (21-32); Chloride 104 mmol/L (98-107); Creatine Kinase 473 U/L (26-192); Creatinine Clr Calc Pharmacy 33.3 ml/min; Est GFR (African American) 32.6 ml/min; Est GFR (Non-African American) 28.1 ml/min; Glucose Fasting 115 mg/dl (70-99)
[2024-02-05] MEDS ORDERED: ROSUVASTATIN CALCIUM 20 MG TAB PO SCH ×2 (09:00)
[2024-02-05] MEDS: LACTATED RINGER'S 1,000 ML IV ONE (09:05)
[2024-02-05 09:11] LABS: Potassium 3.5 mmol/L (3.5-5.1)
[2024-02-05 09:12] LABS: BUN Creatinine Ratio 12.9 (10-20); Calcium 8.8 mg/dl (8.6-10.3); Creatinine Clr Calc Pharmacy 36.6 ml/min; Est GFR (African American) 36.6 ml/min; Est GFR (Non-African American) 31.5 ml/min; Potassium 3.5 mmol/L (3.5-5.1)
[2024-02-05] MEDS: LANTUS PER UNIT CHARGE SQ SCH (12:59)
--- NOTE | 2024-02-05 13:43 | Pharmacy Report ---
Pharmacy Glycemic Short Note 2 - Date of Service February 05, 2024 - Glycemic Short BSG Results (Last 24 hours): 02/04/24 02/04/24 02/04/24 14:35 16:59 17:00 Glucose 356 H* POC Glucose 312 H* 272 H Fasting Glucose 02/04/24 02/04/24 02/05/24 17:01 20:33 00:09 Glucose POC Glucose 308 H* 257 H 179 H Fasting Glucose 02/05/24 02/05/24 02/05/24 04:38 04:40 05:04 Glucose POC Glucose 44 L* 44 L* 78 Fasting Glucose 02/05/24 02/05/24 02/05/24 05:57 08:20 08:28 Glucose 160 H POC Glucose 162 H Fasting Glucose 115 H 02/05/24 02/05/24 12:25 12:27 Glucose POC Glucose 270 H 264 H Fasting Glucose OUTPATIENT ANTIDIABETIC REGIMEN: * Levemir 11 units bid, novolog 10 units tidm + SSI, TDD~51units ASSESSMENT: 02/05 * Tania received 74 units of insulin yesterday (25 were basal) * Fasting BSG this AM acceptable, hypoglycemic overnight, treated with orange juice, hypoglycemia likely due to overcorrection from pharmacy tightening Novolog with dinner and then the provider also tightening as well. Basal insulin reduced by 20% today held until lunch to assure BSG improvement, slightly lower than home dose. * Novolog parameters loosened this AM, slowly titrate due to hypoglycemia risk. BSGs elevated at lunchtime again, slightly tightened carbohydrate coverage. 02/04 * 63 year old admitted with LIDIA/hypotension. Previous notes from outpatient Endo 07/2023 - verified current insulin dosing. Type 1 diabetic per notes. 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 Will give full outpatient basal dose now ~20 units (did get 5 units basal this AM). K is low this morning, awaiting repeat check - will hold on IV insulin until K results, but will give an additional 4 units SQ insulin x 1 now as well. Will tighten novolog with dinner and add on overnight checks. PLAN FOR INPATIENT GLYCEMIC CONTROL: * Hold outpatient oral diabetes medications * Basal insulin * Lantus 20 units SQ daily * Bolus insulin * NovoLog per scale ACHS or Q6hrs while NPO * Goal Range: Low 110 mg/dL - High 140 mg/dL * Correction Factor: 30 mg/dL/unit * Nutritional / Prandial insulin per carb ratio of 1 unit per 9 grams CHO consumed
--- NOTE | 2024-02-05 14:23 | Hospitalist Progress Note ---
Date of Service February 05, 2024 Assessment & Plan (1) Hypotension: Plan: -suspect mostly due to volume contraction. -patient remains hypotensive today. standing BP in L arm 82/56 and R arm 86/50. -will plan to repeat orthostatic BP tomorrow. -patient reported 80mg Lasix daily at home. - currently on hold -did discuss this with patients PCP today. Upon discharge, will plan to decrease her Lasix to avoid episodes of dehydration in future. -02/03/2024 procalcitonin 0.6. CXR and head CT negative. UA with >20 casts. -Continue IVF (2) LIDIA (acute kidney injury): Plan: -Elevation of BUN and Cr from baseline. -Reviewed labs from 02/05/2024: BUN 22 and creatinine 1.70 -IVF with LR at 80ml/hr x 1 -Repeat BMP and CK in AM -Avoid nephrotoxic agents -Renal dosing where needed (3) Weakness: Plan: -Patient with generalized weakness, fall. Likely secondary to dehydration, LIDIA and hypokalemia. -IVF and electrolyte repletion -reviewed potassium from 02/04 - normalized to 3.5. will continue to monitor and replete as necessary. -reviewed Head CT from 02/03/2024 which was negative. -Fall precautions -reviewed PT/OT documentations - recommending she be discharged to home. (4) Elevated creatine kinase: Plan: -Elevation of CK at 632. reviewed CK from 02/04 - downtrending at 473. -UA with +Blood and no RBCs. -Continue IVF LR at 80ml/hr x 1 -Repeat CK in AM -Hold Crestor (5) Hypothyroidism: Plan: -TSH 02/03/2024 significantly elevated at 163.018 with low free T4 of 0.31. -Placed back on Levothyroxine 112mcg PO daily. -Per patient was told she no longer needed this a few months ago. She has follow up established with endocrinology at end of month on 02/19/2024 per patient. Plan DM -Lantus 20u daily with Novolog sliding scale. -Reviewed Hgb A1c 8.9 and glucose level downtrending to 264 today. -episodes of hypoglycemia overnight. will continue to monitor closely. -consulted pharmacy for glycemic management. Hyperlipidemia: chronic. stable -Hold Crestor for now in setting of elevated CK Diet: carb consistent. Ppx - heparin 5000u BID Code - Full Dispo - Admit to medical with telemetry Admission and Anticipated Discharge Date Admission Date: February 03, 2024 Subjective Patient seen and examined this morning. Patient reports that she feels her dizziness has resolved. She states that she was able to ambulate to the restroom by herself prior to my examination. She reports that she is also feeling better overall. She states her appetite has also returned. Orthostatic hypotension was observed today. Blood pressure was manually taken in the standing position. Right arm was 86/58 and left arm was 82/56. Last vitals taken around noon revealed a BP of 105/64. She was given fluids again today. Physical Exam 2 Constitutional: WD/WN, vitals as above Eyes: PERRL, conjunctivae normal, anicteric sclerae ENMT: external ear and nose normal, oropharynx normal Respiratory: normal respiratory effort, lungs clear to auscultation Cardiovascular: RRR, no murmur, no edema Neurologic: PERRL, EOMI, accommodation nl, no face palsy, no dysarthria Psychiatric: A+Ox3, euthymic affect Results & Data Results & Data Vital Signs (Past 12 Hours) Vital Signs Temp Pulse Pulse Resp BP Pulse Ox O2 Del Method 02/05/24 12:01 36.5 C 70 16 105/64 94 Room Air 02/05/24 09:52 73 Laboratory Results 02/05/24 05:57 02/05/24 08:28 PG Care Time/CCT Total # of Minutes Spent Total Time Spent with Patient: Total time spent is greater than 50% in coordination of care (as documented) at patient's floor/unit and/or counseling patient: Coding Level of Care Code 80332 SUB INP/OBS CARE 2/35MIN Diagnoses Hypotension I95.1 Hypotension type: orthostatic hypotension LIDIA (acute kidney injury) N17.9 Weakness R53.1 Elevated creatine kinase R74.8 Hypothyroidism, unspecified type E03.9 Hypothyroidism type: unspecified (1) Hypotension Hypotension type: orthostatic hypotension Qualified Code(s): I95.1 - Orthostatic hypotension (5) Hypothyroidism Hypothyroidism type: unspecified Qualified Code(s): E03.9 - Hypothyroidism, unspecified
[2024-02-06 06:53] LABS: Basophils # (auto) 0.07 K/uL (0.00-0.20); Basophils % (auto) 0.8 %; Eosinophils # (auto) 0.24 K/uL (0.00-0.50); Eosinophils % (auto) 2.7 %; Hematocrit (blood only) 36.2 % (37.0-47.0); Hemoglobin 12.6 g/dl (12.0-16.0); Immature Granulocytes # (auto) 0.06 K/uL (0.01-0.20); Immature Granulocytes % (auto) 0.7 %; Lymphocytes % (auto) 38.9 %; Mean Corpuscular Hgb Conc 34.8 g/dL (32.0-36.0); Mean Corpuscular Volume 88.9 fL (80.0-100.0); Mean Platelet Volume 10.2 fL (9.4-12.4); Monocytes # (auto) 0.76 K/uL (0.11-0.59); Monocytes % (auto) 8.7 %; Neutrophils # (auto) 4.21 K/uL (1.40-6.50); Neutrophils % (auto) 48.2 %; Platelet Count 186 K/uL (130-400); RDW Coefficient of Variation 13.3 % (11.5-14.5); RDW Standard Deviation 43.4 fL (36.4-46.3); Red Blood Count 4.07 M/uL (4.20-5.40); White Blood Count 8.74 K/ul (4.8-10.8)
[2024-02-06 07:16] LABS: BUN Creatinine Ratio 12.5 (10-20); Calcium 8.9 mg/dl (8.6-10.3); Est GFR (African American) 41.9 ml/min; Est GFR (Non-African American) 36.1 ml/min; Potassium 3.5 mmol/L (3.5-5.1)
[2024-02-06] MEDS: LANTUS PER UNIT CHARGE SQ SCH (09:35)
--- NOTE | 2024-02-06 09:58 | Discharge Summary ---
Date of Service February 06, 2024 Admission HPI Per Admitting Provider Tania Sorenson is a 63yo female with history of DM, HLP, Hypothyroidism and remote history of uterine cancer s/p surgical cure presenting with 2-3 weeks of lightheadedness, generalized weakness and near syncope. She reports she becomes quite dizzy with standing up. She reports that she is unable to ambulate very far in her home due to generalized weakness and fatigue. Additionally she reports fatigue as well as poor appetite and decreased oral intake for the last several weeks. She states that "food doesn't appeal to me". She has intermittent nausea and felt very tired today. Also with constipation - had a normal BM last night. She denies chest pain, palpitations, cough, abdominal pain, vomiting, fevers or chills This evening she fell from the commode. She had a riser on the commode which was removed then replaced but it wasn't stable. Patient sat down on the commode and the riser slid off causing the patient to fall. She did strike the left side of her head on a small parallel computing software engineer the bathroom but did not lose consciousness. She was down several moments before her helped her up. In the ER she is afebrile, hypotensive with BP 80/50's initial which has improved slightly with IVF. Principal Diagnosis Hypotension, hypokalemia, hypothyroidsm Discharge Exam Constitutional WD/WN, vitals as above Eyes PERRL, conjunctivae normal, anicteric sclerae ENMT external ear and nose normal, oropharynx normal Neck trachea midline, no thyromegaly Respiratory normal respiratory effort, lungs clear to auscultation Cardiovascular RRR, no murmur, no edema Neurologic PERRL, EOMI, accommodation nl, no face palsy, no dysarthria Psychiatric A+Ox3, euthymic affect Discharge Data Allergies Allergy/AdvReac Type Severity Reaction Status Date / Time tetanus toxoid, adsorbed AdvReac Intermediate SWELLING Verified 02/03/24 21:24 AT SITE AND REDNESS Consultations 02/03/24 21:52 ED Decision to Admit Stat Ordered Studies 02/06/24 06:10 02/06/24 06:10 Vital Signs Temp 36.5 C 02/06/24 10:10 Pulse 64 02/06/24 10:10 Resp 16 02/06/24 10:10 BP 113/69 02/06/24 10:10 Pulse Ox 94 02/06/24 10:10 O2 Del Method Room Air 02/06/24 07:[address] 02/03/24 19:53 CT SCAN OF THE BRAIN WITHOUT IV CONTRAST CLINICAL HISTORY: Head injury. Dizziness IMPRESSION: There is no hemorrhage, mass effect, or evidence of acute territorial ischemia by CT criteria. Electronically signed by: Andrey Loaiza M.D. 02/03/2024 8:46 PM Chest X-Ray 02/03/24 19:57 SINGLE VIEW CHEST CLINICAL HISTORY: Falls. Dizziness IMPRESSION: No acute cardiopulmonary abnormality. Electronically signed by: Andrey Loaiza M.D. 02/03/2024 8:42 PM Hospital Course (1) Hypotension: -suspect mostly due to volume contraction. Patient was hypotensive during earlier parts of her hospital stay Appears this was iatrogenic secondary to lasix. Patient responded to IVF. -patient reported 80mg Lasix daily at home. - currently on hold. Patient instructed to hold this medication until seen by PCP for outpatient follow up. -Patient on lasix for b/l leg edema. She was instructed to elevated legs and use compression stockings. No edema visualized during hospitalization. -02/03/2024 procalcitonin 0.6. CXR and head CT negative. UA with >20 casts. (2) LIDIA (acute kidney injury): -Elevation of BUN and Cr from baseline. -Reviewed labs from 02/06/2024: BUN 19 and creatinine 1.52 -IVF with LR at 80ml/hr x 1 completed. -Avoid nephrotoxic agents -patient instructed to avoid NSAIDs upon discharge until seen by PCP. -Renal dosing where needed -Patient instructed to complete BMP in 1 week after discharge. (3) Weakness: -Patient with generalized weakness, fall. Likely secondary to dehydration, LIDIA and hypokalemia. -IVF and electrolyte repletion -reviewed potassium from 02/05 - 3.5 -reviewed Head CT from 02/03/2024 which was negative. -Fall precautions -reviewed PT/OT documentations - recommending she be discharged to home. (4) Elevated creatine kinase: -Elevation of CK at 632. reviewed CK from 02/05 - downtrending at 315. -UA with +Blood and no RBCs. -IVF LR at 80ml/hr x 1 - completed -Hold Crestor x 1 week after discharge then can resume at previous dosage. (5) Hypothyroidism: -TSH 02/03/2024 significantly elevated at 163.018 with low free T4 of 0.31. -Placed back on Levothyroxine 112mcg PO daily. -Per patient was told she no longer needed this a few months ago. She has follow up established with endocrinology at end of month on 02/19/2024 per patient. Plan DM -Lantus 20u daily with Novolog sliding scale. -Reviewed Hgb A1c 8.9 -consulted pharmacy for glycemic management. -patient instructed to resume previous diabetic medications upon discharge. Hyperlipidemia: chronic. stable -Hold Crestor for now in setting of elevated CK x 1 week while in the hospital Diet: carb consistent. Ppx - heparin 5000u BID Code - Full Dispo - discharge to home Total Time Total Time Spent Total Time Spent (In Minutes): 45 Discharge Plan Discharge Items Patient Disposition: Home - Self-Care Reason For Visit: WEAKNESS, FALL Discharge Diagnosis: Hypotension Activity: As commented below Activity Comment: gradually resume previous activity Non-emergency contact: Primary Care Provider Call non-emergency contact if: you have any medication questions and your symptoms worsen Follow-up/Referrals: Radha Briseno CRNP [Primary Care Provider] - 02/15/24 9:20 am Diet: Carb Consistent or DM2 Ambulatory Orders: Basic Metabolic Panel (Routine) Timeframe: 20240213 Location: Determined by Patient Ordered By: Rhiannon Bob Attending Provider Instructions: Ms. Sorenson, You were hospitalized for low blood pressure likely caused by using Lasix. This was causing your dizziness and weakness. Your kidney function and potassium levels were affected due to dehydration. We have corrected the potassium in the hospital and your kidneys are slowly healing. We have also checked your thyroid levels which were abnormal. Please see the recommendations below. -Please hold use of Lasix until seen by your PCP. -For leg swelling, please try to elevate legs and trial compression stockings. -NSAIDs (ibuprofen) can affect kidney function. Please avoid these medications until seen by your PCP. -We have resumed your Levothyroxine 112mcg following your abnormal TSH value of 163. Please continue on this medication until seen by the defence force member other ranks on 02/19/2024. -Please resume your diabetic medications. -We have held your Rosuvastatin in the event of an elevated creatinine kinase which is a side effect of this medication. Please continue to hold this medication for an additional week and then you may resume at previous dosage. -Upon discharge, if you experience any worsening dizziness or weakness, please report back to the ED. -Please obtain labs in about 1 week to reassess your kidney function and potassium levels. -Please follow up with PCP within 1-2 weeks of discharge. -Please follow up with your defence force member other ranks on previously established visit - 02/19/2024. Sincerely, Rhiannon Carpenter PA-C Pending Studies at Discharge: No Stand-Alone Forms: My [facility] Outline, Smoking Cessation Medications and DC Order Prescriptions: New levothyroxine [Synthroid] 112 mcg Tablet 112 mcg PO DAILYBB 30 Days Qty: 30 0RF Continued Levemir FlexPen 100 unit/mL (3 mL) insulin pen 11 unit SUBCUT BID 90 Days Qty: 21 3RF Rx Instructions: Inject 11 units into the abdomen twice daily. insulin aspart U-100 [Novolog U-100 Insulin aspart] 100 unit/mL solution 0 sliding scale dose subcut TIDM Rx Instructions: 10 units subcutaneously with each meal and sliding scale dosing up to 40 units daily dose. Held rosuvastatin 40 mg tablet 40 mg PO DAILY Qty: 90 3RF Hold Instructions: Resume on 02/13/24. ibuprofen [Advil] 200 mg tablet 600 mg PO QID PRN (Reason: fever or pain) Qty: 30 0RF Hold Instructions: Resume on 02/20/24. Discontinued furosemide [Lasix] 40 mg tablet 40 mg PO DAILY Rx Instructions: 40 mg orally; Take one tablet by mouth once daily may take an additional 40mg if edema persists after 8-12 hours. No Action (DME) pen needle, diabetic [Comfort EZ Pen [place]] 32 gauge x 5/16" needle See Rx Instructions .Route Qty: 100 5RF Rx Instructions: Use 2 per day (DME) Dexcom G7 Sensor Device See Rx Instructions .ROUTE .MEDSUPPLY Qty: 9 3RF Rx Instructions: change every 10 days (DME) blood-glucose meter [OneTouch Ultra2 Meter] Misc See Rx Instructions .Route Rx Instructions: As directed (DME) OneTouch Ultra Test Strip See Rx Instructions .Route Rx Instructions: As directed (DME) Dexcom G6 Transmitter Device See Rx Instructions .Route Rx Instructions: As directed (DME) Dexcom G7 Floating Labor Gang Supervisor Misc See Rx Instructions .ROUTE .MEDSUPPLY Qty: 1 5RF Rx Instructions: As directed Discharge Orders: Discharge Order (Routine); Ordered 02/06/24 Ordered By: Rhiannon Altamirano/Other Patient Handouts: High Blood Sugar (Hyperglycemia), Hypoglycemia (Low Blood Sugar), Managing Type 2 Diabetes Admission Data Admit Date/Time: 02/03/24 22:28 Attending Provider: Albert Rob Admit Provider: Rosa Isela Burrell Primary Care Provider: Radha Briseno Other Providers: Rosa Isela Burrell Other Interventions: Discharge Summary Assessment (RN) Last Done: 02/06/24 10:10 Supervising Physician Co-Signing Physician Notes During face to face encounter, I obtained a brief physical examination, discussed hospital stay with patient and discharge instructions with patient. I discussed discharge plan of care with FRANCIE Carpenter. I reviewed above note and agree with it except for the following: Patient improved with IVF. Was net positive about 6 liters during hopsital stay. No significant pedal edema on exam.. D/W patient that some pedal edema is ok. Patient was taking 80 mg of lasix daily, though order was for 40 mg. Main concern of pedal edema is if its affecting her mobility, or if it weeps. Of course if she develops pulmonary edema that would be another indication for lasix. Currently will hold off lasix for now and will defer to PCP if and when lasix should be resumed. Coding Level of Care Code 29137 INP/OBS DISCH >30 MIN Diagnoses Hypotension I95.1 Hypotension type: orthostatic hypotension LIDIA (acute kidney injury) N17.9 Weakness R53.1 Elevated creatine kinase R74.8 Hypothyroidism, unspecified type E03.9 Hypothyroidism type: unspecified
[2024-02-07] MEDS ORDERED: ROSUVASTATIN CALCIUM 20 MG TAB PO SCH (16:15)
== END 2024-02-06 12:13 | disposition home or self-care (01) | DRG 312 ==
LOC: ED 19:40 → EDINP 22:28 → SUATTDRO 22:28 → 2N 23:39

== ENCOUNTER 2024-06-04 11:27 | Inpatient (IN) ==
--- NOTE | 2024-03-31 09:54 | PAT Medication Instructions ---
Medication Instructions Date of Service March 31, 2024 Home Medications Medication Instructions Recorded blood-glucose meter,continuous #1 ea 02/26/23 (Dexcom G7 Land Management Forester) pen needle, diabetic 32 gauge x #100 ea 02/26/23 5/16" (Comfort EZ Pen [place]) insulin detemir U-100 100 unit/mL 11 unit (0.11 mL) subcut BID 90 08/07/23 (3 mL) subcutaneous pen (Levemir days #21 mL FlexPen) ibuprofen 200 mg tablet (Advil) 600 mg (3 x 200 mg) PO QID PRN 08/30/23 fever or pain #30 tabs insulin syringe-needle U-100 0.3 #300 ea 02/08/24 mL 31 gauge x 5/16" (BD Insulin Syringe Ultra-Fine) blood-glucose sensor (Dexcom G7 #9 ea 02/14/24 Sensor device) insulin aspart U-100 100 unit/mL See Rx Instructions .Route 02/15/24 subcutaneous solution (Novolog .COMPLEX #40 mL U-100 Insulin aspart) glucagon 3 mg/actuation nasal spray 3 mg intranasal ONCE #2 ea 02/19/24 levothyroxine 112 mcg tablet 112 mcg PO DAILYBB #90 tabs 02/19/24 (Synthroid) insulin detemir U-100 100 unit/mL (3 mL) subcutaneous pen (Levemir FlexPen) 11 unit (0.11 mL) subcut BID ibuprofen 200 mg tablet (Advil) 600 mg (3 x 200 mg) PO QID PRN fever or pain insulin aspart U-100 100 unit/mL subcutaneous solution (Novolog U-100 Insulin aspart) See Rx Instructions .Route .COMPLEX glucagon 3 mg/actuation nasal spray 3 mg intranasal ONCE levothyroxine 112 mcg tablet (Synthroid) 112 mcg PO DAILYBB Continue as directed glucagon 3 mg/actuation nasal spray 3 mg intranasal ONCE ASK your surgeon for instructions ibuprofen 200 mg tablet (Advil) 600 mg (3 x 200 mg) PO QID PRN fever or pain DO NOT take the morning of surgery insulin aspart U-100 100 unit/mL subcutaneous solution (Novolog U-100 Insulin aspart) See Rx Instructions .Route .COMPLEX Take morning of surgery With a small sip of water, OTHERWISE NOTHING TO EAT OR DRINK AFTER MIDNIGHT: levothyroxine 112 mcg tablet (Synthroid) 112 mcg PO DAILYBB Take evening before surgery insulin detemir U-100 100 unit/mL (3 mL) subcutaneous pen (Levemir FlexPen) 11 unit (0.11 mL) subcut BID insulin aspart U-100 100 unit/mL subcutaneous solution (Novolog U-100 Insulin aspart) See Rx Instructions .Route .COMPLEX Insulin Dependent Diabetic Patients * Test your blood sugar the morning of surgery * If Blood Sugar is GREATER THAN 150, take HALF of your regular dose of: insulin detemir U-100 100 unit/mL (3 mL) subcutaneous pen (Levemir FlexPen) > Take 5 units * If Blood Sugar is LESS THAN 150, DO NOT TAKE ANY: insulin detemir U-100 100 unit/mL (3 mL) subcutaneous pen (Levemir FlexPen) Other Notes If you have any questions please call us at [phone] or [phone] or [phone] or [phone]
--- NOTE | 2024-03-31 11:50 | Anesthesiology Consultation ---
Date of Service March 31, 2024 Assessment & Plan (1) Encounter for pre-operative examination: Plan - check BSG am DOS. - awaiting echocardiogram. - echocardiogram scheduled 05/2024. Case discussed in detail with Dr. Bravo who advised attempting to have echocardiogram done prior to 04/08/24. Richard with [facility] advised there are earlier openings for 04/08/24 and that ordering provider's office (CT endocrinology) can change scheduling location. Patient made aware and is agreeable, she states will need 2 days notice to arrange transportation. Patient was instructed to contact central scheduling (number was provided). Chart Review Chart Review: Pending: Refer to Additional Notes / Consult section and Patient seen in Pre Admission Testing Teaching & Discussion Pre-Anesthesia Teaching/Discussion Notes: Instructed NPO after midnight before surgery, except medications with 15 cc of water. Medication instructions provided according to the PAT guidelines. History Surgery Operation Date: 04/08/24 11:20 Proposed Procedures p Right Common Femoral Endartectomy - Gavino Fitzgerald MD Height/Weight Height: 5 ft 4 in Weight: 87.3 kg Allergies Allergy/AdvReac Type Severity Reaction Status Date / Time tetanus toxoid, adsorbed AdvReac Intermediate SWELLING Verified 03/31/24 08:18 AT SITE AND REDNESS Medications Home Medications Medication Instructions Recorded Confirmed Last Taken blood sugar diagnostic (OneTouch 09/04/22 02/22/24 08/29/23 Ultra Test strips) blood-glucose meter (OneTouch 09/04/22 02/22/24 08/29/23 Ultra2 Meter) blood-glucose meter,continuous #1 ea 02/26/23 02/22/24 08/29/23 (Dexcom G7 Ammonia Print Operator) pen needle, diabetic 32 gauge x #100 ea 02/26/23 02/22/24 08/29/23 5/16" (Comfort EZ Pen [place]) insulin detemir U-100 100 unit/mL 11 unit (0.11 mL) subcut BID 90 08/07/2303/3102/26/24 07:30 (3 mL) subcutaneous pen (Levemir days #21 mL FlexPen) ibuprofen 200 mg tablet (Advil) 600 mg (3 x 200 mg) PO QID PRN 08/30/23 03/31/24 Unknown fever or pain #30 tabs insulin syringe-needle U-100 0.3 #300 ea 02/08/24 02/22/24 Unknown mL 31 gauge x 5/16" (BD Insulin Syringe Ultra-Fine) blood-glucose sensor (Dexcom G7 #9 ea 02/14/24 02/22/24 Unknown Sensor device) insulin aspart U-100 100 unit/mL See Rx Instructions .Route 02/15/24 03/31/24 02/25/24 subcutaneous solution (Novolog .COMPLEX #40 mL U-100 Insulin aspart) glucagon 3 mg/actuation nasal spray 3 mg intranasal ONCE #2 ea 02/19/24 03/31/24 03/10/24 levothyroxine 112 mcg tablet 112 mcg PO DAILYBB #90 tabs 02/19/24 03/31/24 03/11/24 05:30 (Synthroid) Past Medical History Medical History (Updated 03/31/24 @ 15:43 by Fawn Miller PA-C) Acid reflux controlled, stable per pt Arthritis Diabetes mellitus type 1 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) hx-right foot Heart murmur (02/19/24) recent dx, waiting to follow up w/ cardio 07/2024 at [facility] History of blood transfusion karlene-op hysterectomy Hx of angiography 06/2023, [facility], bilateral and abdominal aortogram Hx of cancer of uterus surgery and radiation> at age 28 Hyperlipidemia Hypothyroidism Lower extremity edema bilat-denies change or worsening Peripheral arterial disease Sensory neuropathy feet Shoulder pain left, r/t arthritis Sleep-disordered breathing denies sleep study Stenosis of right femoral artery Patient denies h/o stroke, seizures, heart attack, heart failure, HTN, blood clots/DVTs or blood transfusions. Exercise / Class Metabolic Activity III < 4 Walking/Shop/Light housework (denies chest discomfort or shortness of breath with usual activities) Past Family History Family History Mother Myocardial infarction Other No family history of adverse response to anesthesia Denies family history of Ovarian cancer Prostate cancer Breast cancer Colorectal cancer Past Surgical History Surgical History History of appendectomy History of carpal tunnel release (08/2023) left History of cataract surgery rt/left History of cholecystectomy History of partial amputation of toe of right foot (07/2023) History of tonsillectomy and adenoidectomy initial sx age 2, revision age 12 History of tooth extraction Hx of colonoscopy Hx of total hysterectomy with removal of both tubes and ovaries also removed gallbladder and appendix at same time Past Anesthesia History No Hx of Anesthesia Complications and No Family Hx of Anesthesia Complications History of PONV No Hx of PONV and Hx of Motion Sickness Social History Smoking Status: Never smoker Do You Dip or Chew Tobacco: No Hx Alcohol Use: Yes Alcohol type: beer alcohol intake frequency: a few times a month Hx Substance Use: No substance use type: does not use Review of Systems Patient denies chest pain, shortness of breath, dyspnea on exertion, fever, chills, cough, wheezing, or palpitations. Physical Exam Vital Signs Vitals BP 103/68 P 89 TEMP 98.3 SP02 95% on RA RESP 18 Physical Patient resting comfortably in chair in no acute distress, alert and oriented, responding appropriately throughout visit Full cervical extension range of motion without pain TMD 3.5 finger breadths Mallampati Score 3 Dentition: intact, denies chipped or loose teeth, caps/crowns, implants or bridges Lungs: normal respiratory effort. Good air movement, clear throughout to auscultation, no adventitious breath sounds Cardiac: regular rate and rhythm, 2/6 systolic murmur, no gallops or rubs Carotid arteries: negative bruit bilat Lab Results Anesthesia Preop Results Results Anesthesia Widget: WBC 8.30 K/ul (4.8-10.8) 03/31/24 Hgb 12.5 g/dl (12.0-16.0) 03/31/24 Hct 37.6 % (37.0-47.0) 03/31/24 Plt 190 K/uL (130-400) 03/31/24 Na 140 mmol/L (136-145) 03/31/24 K 3.8 mmol/L (3.5-5.1) 03/31/24 Cl 108 mmol/L (98-107) H 03/31/24 CO2 26 mmol/L (21-32) 03/31/24 BUN 14 mg/dl (6-23) 03/31/24 Creat 0.87 mg/dl (0.6-1.2) 03/31/24 Glucose Level 131 mg/dl (70-99(Fasting)) H 03/31/24 Fasting Glucose 115 mg/dl (70-99) H 02/05/24 POC Glucose 82 mg/dl (70-99) 03/11/24 PT 10.6 Seconds (9.0-12.0) 03/31/24 PTT 21 Seconds (21-31) 03/31/24 INR 1.0 (0.9-1.1) 03/31/24 TSH 163.018 uIu/ml (0.300-4.500) H 02/03/24 Free T4 0.31 ng/dl (0.61-1.60) L 02/03/24 HA1c 7.3 % (4.5-5.6) H 03/31/24 Urine Color Yellow 02/03/24 Urine Appearance Cloudy (Clear) A 02/03/24 Urine pH 5.5 (4.5-7.5) 02/03/24 Urine Specific [place] 1.014 (1.000-1.030) 02/03/24 Urine Protein 2+ (Negative) H 02/03/24 Urine Glucose (UA) Negative (Negative) 02/03/24 Urine Ketones Negative (Negative) 02/03/24 Urine Blood 3+ (Negative) H 02/03/24 Urine Nitrite Negative (Negative) 02/03/24 Urine Bilirubin Negative (Negative) 02/03/24 Urine Urobilinogen Negative (Negative) 02/03/24 Urine Leukocyte Esterase Negative (Negative) 02/03/24 Urine WBC (Auto) 0-5 /hpf (0-5) 02/03/24 Urine RBC (Auto) 0-2 /hpf (0-2) 02/03/24 Urine Hyaline Casts (Auto) >20 /lpf (0-2) H 02/03/24 Urine Epithelial Cells (Auto) 3-5 /hpf (0-2) H 02/03/24 Urine Bacteria (Auto) None Seen (None Seen) 02/03/24 Blood Type O Positive 03/31/24 Antibody Screen NEGATIVE 03/31/24 Testing Electrocardiogram Date: 02/03/24 NSR, rate 71 bpm Left axis deviation Minimal voltage criteria for LVH, may be normal variant Chest X-Ray Date: 03/31/24 No active disease in the chest. Other Testing Head CT 02/03/24 There is no hemorrhage, mass effect, or evidence of acute territorial ischemia by CT criteria.
--- NOTE | 2024-06-04 07:29 | History & Physical Report ---
Date of Service June 04, 2024 Assessment & Plan (1) Stenosis of right femoral artery: Plan: Patient is admitted for a right common femoral endarterectomy. I have discussed the risks options and benefits of the procedure with the patient. The patient understands the risks options and benefits and agrees to the procedure. History of Present Illness Chief Complaint: Right common femoral artery stenosis Primary Care Provider: KWAKU Garcia Tania is a 63-year-old female who was having claudication right lower extremity. It was causing her to stop walking and rest. When she does that she can walk further. It continues to occur after walking short distances. She denies any tissue loss of the lower extremity. She did have an arteriogram done in June of last year which showed a severe stenosis of right common femoral artery. She had an ultrasound done at the end of December which showed again a severe stenos on her right common femoral artery. She denies any rest pain of her right lower extremity. Her left lower extremity gives her no discomfort. Allergies Allergy/AdvReac Type Severity Reaction Status Date / Time tetanus toxoid, adsorbed AdvReac Intermediate SWELLING Verified 06/03/24 07:51 AT SITE AND REDNESS Home Medications Medication Instructions Recorded Confirmed Type blood sugar diagnostic (OneTouch 09/04/22 05/15/24 History Ultra Test strips) blood-glucose meter (OneTouch 09/04/22 05/15/24 History Ultra2 Meter) blood-glucose meter,continuous #1 ea 02/26/23 05/15/24 Rx (Dexcom G7 [place]ber Robber) pen needle, diabetic 32 gauge x #100 ea 02/26/23 05/15/24 Rx 5/16" (Comfort EZ Pen [place]) ibuprofen 200 mg tablet (Advil) 600 mg (3 x 200 mg) PO QID PRN 08/30/23 06/03/24 Rx fever or pain #30 tabs insulin syringe-needle U-100 0.3 #300 ea 02/08/24 05/15/24 Rx mL 31 gauge x 5/16" (BD Insulin Syringe Ultra-Fine) blood-glucose sensor (Dexcom G7 #9 ea 02/14/24 05/15/24 Rx Sensor device) insulin detemir U-100 100 unit/mL 11 unit (0.11 mL) subcut BID 90 05/14/24 06/03/24 Rx (3 mL) subcutaneous pen (Levemir days #21 mL FlexPen) furosemide 40 mg tablet (Lasix) 40 mg PO QAM 06/03/24 06/03/24 History glucagon 3 mg/actuation nasal spray 3 mg intranasal ONCE PRN 06/03/24 06/03/24 History Hypoglycemia insulin aspart U-100 100 unit/mL 0 unit continuous subcutaneous 06/03/24 06/03/24 History subcutaneous solution (Novolog infusion DAILY U-100 Insulin aspart) levothyroxine 100 mcg tablet 100 mcg PO QAM 06/03/24 06/03/24 History Past Med/Surg History Problem List Heart murmur Swelling of lower extremity LIDIA (acute kidney injury) 02/04/24 Elevated creatine kinase 02/04/24 Fall 02/04/24 Weakness 02/04/24 Hypotension (Acute) 02/04/24 Cubital tunnel syndrome Carpal tunnel syndrome History of partial amputation of toe of right foot Elevated blood pressure reading 08/21/23 Peripheral arterial disease (Acute) Stenosis of right femoral artery Hypokalemia (Acute) 04/25/23 Diabetic foot ulcer with osteomyelitis hx-surgery to remove Foot pain 04/25/23 Diabetic infection of right foot (Acute) 04/25/23 Loss of protective sensation of skin of foot Lower extremity edema 02/26/23 Hyperglycemia due to type 1 diabetes mellitus 01/30/23 Nausea & vomiting (Acute) 01/30/23 Elevated troponin (Acute) 01/30/23 Dyslipidemia 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 reports decayed teeth, needs dentures, not loose Sleep-disordered breathing denies sleep study- sister told pt. 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 dickerson - states his PA did not hear a cardiac murmur (05/14/24) Sensory neuropathy feet 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) hx-right foot Stenosis of right femoral artery Lower extremity edema hx - swelling has been much better sinc starting lasix Shoulder pain left, r/t arthritis Peripheral arterial disease Hx of angiography 06/2023, [facility], bilateral and abdominal aortogram Hyperlipidemia Hypothyroidism Surgical History History of cholecystectomy (1988) during hyster History of appendectomy (1988) during hyster History of tooth extraction History of cataract surgery (02/2024) rt/left History of partial amputation of toe of right foot (07/2023) pt. reports clipping toe nails and accidentally removing entire toe nail, which lead to infection History of carpal tunnel release (08/2023) left Hx of colonoscopy History of tonsillectomy and adenoidectomy (1972) initial sx age 2, revision age 12 Hx of total hysterectomy with removal of both tubes and ovaries at age 28, also removed gallbladder and appendix at same time Family History Mother Myocardial infarction Other No family history of adverse response to anesthesia Denies family history of Ovarian cancer Prostate cancer Breast cancer Colorectal cancer Social History Smoking Status: Never smoker Second Hand Exposure: Yes (parents smoked, sister smokes currently); Do You Dip or Chew Tobacco: No; Tobacco Cessation Education Requested by Patient: No Hx Alcohol Use: Yes Alcohol type: beer Alcohol Intake Frequency: Monthly or Less Hx Substance Use: No Preferred Language: Nepali Communication Ability: Effective Visual Impairment: No Limitations Hearing Ability: Normal Sharepoint Solutions Architect Required: No Beliefs That Will Affect Care: None marital status: Single Current Living Situation: Family Current Living Situation Comment: lives with sister current occupational status: retired Other Information That Helps Us Care for You: No Feels Safe at Home: Yes Safety Concerns: Feels Safe At This Time Childhood Exposure to Second-Hand Smoke: Yes Diet: low carbohydrate caffeine: Yes during the past year weight has: remained stable Dental Care, Regularly: No Physical Activity Frequency: 5-6 Times per Week Seatbelt Use: always Sunscreen Use: No Assistive Devices: Glasses and Other Assistive Devices Comment: insulin pump Review of Systems All systems reviewed & are unremarkable except as noted in HPI & below Physical Exam Physical Exam: On physical exam she is awake alert oriented x 3. She is in no apparent distress. Her blood pressure is 130/80 on the left and 138/70 on the right. Her radials carotids are +2 bilaterally. Abdominal exam is benign. I cannot appreciate a pulsatile mass but she does have a fairly large body habitus. Her femorals are +2 bilaterally. Pedal pulses are +1 on the right and +2 on the left. There is good capillary refill both feet. No tissue loss is noted in either lower extremity. Neurological exam is intact motor and sensory functions. Her lungs are clear the heart is regular rate and rhythm.
--- NOTE | 2024-06-04 11:49 | Anesthesiology Consultation ---
Date of Service June 04, 2024 Assessment & Plan Chart Review Chart Review: Acceptable Risk for Surgery and Patient NOT seen in Pre Admission Testing Consults Requested none ASA ASA4 Proposed Anesthesia Anesthesia Type: General Anesthesia Line Insertion: Arterial line History Surgery Operation Date: 04/08/24 10:50 Proposed Procedures p Right Common Femoral Endartectomy - Gavino Fitzgerald MD Operation Date: 06/04/24 13:00 Proposed Procedures p Right Common Femoral Endarterectomy - Gavino Fitzgerald MD Height/Weight Height: 5 ft 4 in Weight: 85.275 kg Allergies Allergy/AdvReac Type Severity Reaction Status Date / Time tetanus toxoid, adsorbed AdvReac Intermediate SWELLING Verified 06/03/24 07:51 AT SITE AND REDNESS Medications Home Medications Medication Instructions Recorded Confirmed Last Taken blood sugar diagnostic (OneTouch 09/04/22 05/15/24 08/29/23 Ultra Test strips) blood-glucose meter (OneTouch 09/04/22 05/15/24 08/29/23 Ultra2 Meter) blood-glucose meter,continuous #1 ea 02/26/23 05/15/24 08/29/23 (Dexcom G7 Barrel Loader) pen needle, diabetic 32 gauge x #100 ea 02/26/23 05/15/24 08/29/23 5/16" (Comfort EZ Pen [place]) ibuprofen 200 mg tablet (Advil) 600 mg (3 x 200 mg) PO QID PRN 08/30/23 06/03/24 Unknown fever or pain #30 tabs insulin syringe-needle U-100 0.3 #300 ea 02/08/24 05/15/24 Unknown mL 31 gauge x 5/16" (BD Insulin Syringe Ultra-Fine) blood-glucose sensor (Dexcom G7 #9 ea 02/14/24 05/15/24 Unknown Sensor device) insulin detemir U-100 100 unit/mL 11 unit (0.11 mL) subcut BID 90 05/14/24 06/03/24 Unknown (3 mL) subcutaneous pen (Levemir days #21 mL FlexPen) furosemide 40 mg tablet (Lasix) 40 mg PO QAM 06/03/24 06/03/24 Unknown glucagon 3 mg/actuation nasal spray 3 mg intranasal ONCE PRN 06/03/24 06/03/24 Unknown Hypoglycemia insulin aspart U-100 100 unit/mL 0 unit continuous subcutaneous 06/03/24 06/03/24 Unknown subcutaneous solution (Novolog infusion DAILY U-100 Insulin aspart) levothyroxine 100 mcg tablet 100 mcg PO QAM 06/03/24 06/03/24 Unknown Past Medical History Medical History Hx of hypotension (01/2024) Hx of fall (02/04/24) no major injuries Dental caries pt. reports decayed teeth, needs dentures, not loose Sleep-disordered breathing denies sleep study- sister told pt. 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 dickerson - states his PA did not hear a cardiac murmur (05/14/24) Sensory neuropathy feet 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) hx-right foot Stenosis of right femoral artery Lower extremity edema hx - swelling has been much better sinc starting lasix Shoulder pain left, r/t arthritis Peripheral arterial disease Hx of angiography 06/2023, [facility], bilateral and abdominal aortogram Hyperlipidemia Hypothyroidism Exercise / Class Metabolic Activity III < 4 Walking/Shop/Light housework Past Family History Family History Mother Myocardial infarction Other No family history of adverse response to anesthesia Denies family history of Ovarian cancer Prostate cancer Breast cancer Colorectal cancer Past Surgical History Surgical History History of cholecystectomy (1988) during hyster History of appendectomy (1988) during hyster History of tooth extraction History of cataract surgery (02/2024) rt/left History of partial amputation of toe of right foot (07/2023) pt. reports clipping toe nails and accidentally removing entire toe nail, which lead to infection History of carpal tunnel release (08/2023) left Hx of colonoscopy History of tonsillectomy and adenoidectomy (1972) initial sx age 2, revision age 12 Hx of total hysterectomy with removal of both tubes and ovaries at age 28, also removed gallbladder and appendix at same time Past Anesthesia History No Hx of Anesthesia Complications and No Family Hx of Anesthesia Complications History of PONV No Hx of PONV and No Hx of Motion Sickness Social History Smoking Status: Never smoker Do You Dip or Chew Tobacco: No Hx Alcohol Use: Yes Alcohol type: beer alcohol intake frequency: a few times a month Hx Substance Use: No substance use type: does not use Testing Electrocardiogram Date: 02/03/24 Findings: + NSR @ (@ 71;LAD;LVH) Chest X-Ray Date: 03/31/24 Findings: + NAD Echocardiogram Date: 04/04/24 EF: 55% LV Function: normal RWMA: + none Other Findings: + LVH (moderate asymmetric LVH) and + diastolic dysfunction (grade 1) Valvular Disease: + no significant valvular disease
[2024-06-04] MEDS: DEXTROSE 50% 50 ML SYRINGE IV ONE ×2 (12:00→15:30)
[2024-06-04] MEDS ORDERED: FLUMAZENIL 0.1 MG/1 ML 10 ML VIAL IV PRN (12:34)
[2024-06-04] MEDS ORDERED: HYDROmorphone INJ 1 MG/ML SYRINGE IV PRN (12:34)
[2024-06-04] MEDS ORDERED: PROMETHAZINE HCL 6.25 MG in SODIUM CHLORIDE 0.9% 50 ML IV PRN (12:34)
[2024-06-04] MEDS ORDERED: LABETALOL HCL IV 5 MG/ML 20ML IV PRN (12:34)
[2024-06-04] MEDS ORDERED: ATROPINE SULFATE 0.1 MG/ML 10ML SYR IV PRN (12:34)
[2024-06-04] MEDS ORDERED: ONDANSETRON INJ 2 MG/ML 2 ML VIAL IV PRN (12:34)
[2024-06-04] MEDS ORDERED: NALOXONE HCL 0.4 MG/1 ML VIAL/CARP IV PRN (12:34)
[2024-06-04] MEDS ORDERED: ePHEDrine sulfate 50 MG/ML AMP IV PRN (12:34)
[2024-06-04] MEDS: SODIUM CHLORIDE 0.9% 1,000 ML IV SCH (12:39)
--- NOTE | 2024-06-04 12:52 | History & Physical Bridge Note ---
Date of Service June 04, 2024 History & Physical Bridge Note I have examined the patient, reviewed the History & Physical and in the interval since the performance of the History & Physical I have noted the following changes of clinical significance: no changes noted
[2024-06-04] MEDS ORDERED: fentaNYL citrate PF 100 MCG/2 ML VIAL ONE ×2 (13:05→13:45)
[2024-06-04] MEDS: ceFAZolin 2000MG 2,000 MG/15 ML SYR IV SCH ×2 (13:12→20:25)
[2024-06-04] MEDS ORDERED: ONDANSETRON INJ 2 MG/ML 2 ML VIAL ONE (13:45)
[2024-06-04] MEDS ORDERED: PROPOFOL IV EMULSION 10 MG/ML 20 ML VIAL IV ONE (13:45)
[2024-06-04] MEDS ORDERED: LIDOCAINE 2% 2 ML VIAL/AMP(20MG/ML) INFIL ONE (13:45)
[2024-06-04] MEDS ORDERED: ROCURONIUM BROMIDE 10 MG/ML 5 ML VIAL IV ONE (13:45)
[2024-06-04] MEDS ORDERED: DexMEDEtomidine HCL IV 100 MCG/ML VIAL IV ONE (14:01)
[2024-06-04] MEDS: BUPIVACAINE/EPINEPHRINE 0.5% MPF 1:200,000 30 ML VIAL ONE (14:36)
[2024-06-04] MEDS: GELATIN SPONGE SZ 100 ONE (14:36)
[2024-06-04] MEDS: LIDOCAINE 1% LOCAL 20 ML VIAL ONE (14:37)
[2024-06-04] MEDS ORDERED: SUGAMMADEX SODIUM 200 MG/2 ML VIAL IV ONE (14:42)
[2024-06-04] MEDS: ceFAZolin 330 MG/ML 1 GM VIAL ONE (14:52)
[2024-06-04] MEDS: THROMBIN FOR SOLN 20000 UNIT KIT ONE (14:52)
[2024-06-04] MEDS: HEPARIN (PORCINE) 1000 UNIT/ML 10 ML (CATH LAB USE ONLY) ONE (14:56)
--- NOTE | 2024-06-04 15:14 | Post Operative Brief Note ---
Immediate Post Op Note Date of Surgery June 04, 2024 Pre & Post Diagnosis Operation Date: 06/04/24 13:00 Pre-Op Diagnosis: Stenosis of right femoral artery Post-Op Diagnosis: Stenosis of right femoral artery I identified the patient and participated in the time-out.: Yes Procedure Operation Date: 06/04/24 13:00 Actual Procedures p Right Common Femoral Endarterectomy with bovine patch(Right) - Gavino Fitzgerald MD Surgeon Gavino Fitzgerald MD Film And Video Graphics Designer MD Amrit Estimated Blood Loss 20 Findings Consistent with Post-Op Diagnosis Drains Stacy Catheter Anesthesia Type General Complications none Disposition Accompanied Patient To Recovery: No Disposition: Recovery Room
--- NOTE | 2024-06-04 15:22 | Operative Report ---
Post Operative Report Pre & Post Diagnosis Operation Date: 06/04/24 13:00 Pre-Op Diagnosis: Stenosis of right femoral artery Post-Op Diagnosis: Stenosis of right femoral artery I identified the patient and participated in the time-out.: Yes Procedure Operation Date: 06/04/24 13:00 Actual Procedures p Right Common Femoral Endarterectomy(Right) - Gavino Fitzgerald MD Surgeon Gavino Fitzgerald MD Supervisor Silvering Department Иван Mehta MD Estimated Blood Loss 20 Findings Consistent with Post-Op Diagnosis Severe stenosis of the right MANAGER [employer] DEVELOPMENT. Following endarterectomy and patch angioplasty the MANAGER [employer]ELOPMENT, SFA and profunda with good Doppler signal. Specimens Right common femoral artery plaque Anesthesia Type General Complications None Disposition Accompanied Patient To Recovery: No Indications Ms. Tania Sorenson is a very pleasant 63 year old female with PMH of PAD and severe lifestyle limiting claudication. She underwent a prior angiogram that demonstrated severe stenosis if the right MANAGER [employer]ELOPMENT as well as proximal profunda femoris and SFA. After discussion of conservative management vs surgical repair, the patient elected for the above repair Description of Procedure The patient was taken to the operating room and placed in the supine position. General endotracheal anesthesia was induced. The right groin and right leg were prepped and draped circumferentially in the usual sterile fashion. A longitudinal incision was made at the location of the right MANA[employer]ELOPMENT using a #15 blade scalpel. Dissection was carried down through subcutaneous tissue using electrocautery followed by Metzenbaum scissions and the MANAGER [employer]ELOPMENT was identified. The MANA[employer]ELOPMENT was mobilized proximally to the level of the right external iliac artery underneath the inguinal ligament. The right common femoral artery, right profunda femoris, and right SFA were controlled with vessel loops. Patient was systemically heparinized with a goal ACT of > 200, 7000U IV heparin. Following heparin administration the aforementioned arteries were clamped in order A #11 blade was then used to make an arteriotomy on the anterior surface of the MANAGER [employer]ELOPMENT. There was severe almost 90% stenosis. Plaque of the right common femoral artery, proximal profunda and SFA was endarterectomized. Patch angioplasty was then performed of the right MANA[employer]ELOPMENT defect with a bovine pericardial patch using 5-0 Prolene suture. Good backbleeding was seen from all vessels. The artery was flushed with heparinized saline. The patch was then completed and all vessels unclamped. The patch was hemostatic. There were excellent Doppler signals in the MANAGER [employer]ELOPMENT, profunda and SFA. The wound was closed with running 2-0 Vicryl sutures followed by 3-0 interrupted and then running subcutaneous Vicryl sutures. The skin was closed with jennifer. A Prevena vac dressing was applied. The patient was extubated without the complication and left the OR without complication. I attest to the content of the Intraoperative Record and any orders documented therein. Any exceptions are noted below. Supervising Physician Co-Signing Physician Notes Gavino Fitzgerald MD
[2024-06-04] MEDS: fentaNYL citrate PF 100 MCG/2 ML VIAL IV PRN (16:00)
--- NOTE | 2024-06-04 16:22 | Anesthesiology Progress Note ---
Date of Service June 04, 2024 Anesthesia Post Procedure Vital Signs Vital Signs: Temp Pulse Pulse Resp BP BP BP 06/04/24 16:20 78 14 134/63 06/04/24 16:10 36.4 C L 78 14 125/60 06/04/24 16:00 78 16 128/58 L 06/04/24 15:50 77 16 123/56 L 06/04/24 15:40 77 15 128/58 L 06/04/24 15:30 72 16 135/74 06/04/24 15:22 36.3 C L 77 12 127/60 06/04/24 12:19 36.6 C 87 20 100/70 120/55 L Pulse Ox O2 Del Method O2 Flow Rate 06/04/24 16:20 100 Nasal Cannula 2 06/04/24 16:10 94 Nasal Cannula 2 06/04/24 16:00 99 Oxymask 2 06/04/24 15:50 100 Oxymask 4 06/04/24 15:40 97 Oxymask 4 06/04/24 15:30 95 Oxymask 6 06/04/24 15:22 96 Oxymask 6 06/04/24 12:19 94 Room Air Pain Intensity Right Groin: Pain Intensity: 2 Transfer of Care Handoff Completed per policy Notes Mental Status: alert / awake / arousable Patient Amnestic to Procedure: Yes Nausea / Vomiting: adequately controlled Pain: adequately controlled Airway Patency, RR, SpO2: stable & adequate BP & HR: stable & adequate Hydration State: stable & adequate Anesthetic Complications: no major complications apparent
[2024-06-04] MEDS ORDERED: PHARMACY GLYCEMIC MGMT CONSULT PRN (17:19)
[2024-06-04] MEDS ORDERED: IBUPROFEN 600 MG TAB PO PRN (17:19)
[2024-06-04] MEDS: MoRPHine SULFATE 4 MG/ML 1 ML CARP\\VIAL IV PRN (17:57)
--- NOTE | 2024-06-04 17:57 | Critical Care Consultation ---
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 Fitzgerald Monitor pulses Watch for any signs of bleeding -- Diabetes type 1 On insulin pump at home ICU hypoglycemia protocol Will get ICU glycemic consult -- Hypothyroidism Continue with levothyroxine -- Obesity Advised to lose weight diet and exercise --Prophylaxis VTE: None GI: None Lines: Left radial, peripheral Diet: Diabetic Plan: Continue to monitor pulses Monitor for signs of ischemia Monitor H&H Please note the above document was generated using voice recognition software. It may contain grammatical, syntax or spelling errors.Any formal questions or concerns about the content, text or information contained within the body of this dictation should be directly addressed to the provider for clarification. History of Present Illness Attending Physician: Gavino Fitzgerald MD History of Present Illness 63-year-old female presented to the hospital for right common femoral endarterectomy Past medical history: Diabetes type 1, hypothyroidism Patient was sent to the ICU for further care post 2-hour Time of examination patient was resting comfortably She denied any chest pain, no nausea, no vomiting No shortness of breath Her saturation was 97% on room air, systolic blood pressure was in the 130s with heart rate in the mid 80s She complained of right groin plain which was bearable. She was asking if she can have something to eat. She did complains of sore throat. No difficulty swallowing Social history: Lifetime non-smoker Allergies Allergy/AdvReac Type Severity Reaction Status Date / Time tetanus toxoid, adsorbed AdvReac Intermediate SWELLING Verified 06/04/24 12:12 AT SITE AND REDNESS Home Medications Medication Instructions Recorded Confirmed Type blood sugar diagnostic (OneTouch 09/04/22 05/15/24 History Ultra Test strips) blood-glucose meter (OneTouch 09/04/22 05/15/24 History Ultra2 Meter) blood-glucose meter,continuous #1 ea 02/26/23 05/15/24 Rx (Dexcom G7 Log Chain Worker) pen needle, diabetic 32 gauge x #100 ea 02/26/23 05/15/24 Rx 5/16" (Comfort EZ Pen [place]) ibuprofen 200 mg tablet (Advil) 600 mg (3 x 200 mg) PO QID PRN 08/30/23 06/04/24 Rx fever or pain #30 tabs insulin syringe-needle U-100 0.3 #300 ea 02/08/24 05/15/24 Rx mL 31 gauge x 5/16" (BD Insulin Syringe Ultra-Fine) blood-glucose sensor (Dexcom G7 #9 ea 02/14/24 05/15/24 Rx Sensor device) furosemide 40 mg tablet (Lasix) 40 mg PO QAM 06/03/24 06/04/24 History glucagon 3 mg/actuation nasal spray 3 mg intranasal ONCE PRN 06/03/24 History Hypoglycemia insulin aspart U-100 100 unit/mL 0 unit continuous subcutaneous 06/03/24 06/04/24 History subcutaneous solution (Novolog infusion DAILY U-100 Insulin aspart) levothyroxine 100 mcg tablet 100 mcg PO QAM 06/03/24 06/04/24 History Patient History Medical History Hx of hypotension (01/2024) Hx of fall (02/04/24) no major injuries Dental caries pt. reports decayed teeth, needs dentures, not loose Sleep-disordered breathing denies sleep study- sister told pt. 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 dickerson - states his PA did not hear a cardiac murmur (05/14/24) Sensory neuropathy feet 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) hx-right foot Stenosis of right femoral artery Lower extremity edema hx - swelling has been much better sinc starting lasix Shoulder pain left, r/t arthritis Peripheral arterial disease Hx of angiography 06/2023, [facility], bilateral and abdominal aortogram Hyperlipidemia Hypothyroidism Surgical History History of cholecystectomy (1988) during hyster History of appendectomy (1988) during hyster History of tooth extraction History of cataract surgery (02/2024) rt/left History of partial amputation of toe of right foot (07/2023) pt. reports clipping toe nails and accidentally removing entire toe nail, which lead to infection History of carpal tunnel release (08/2023) left Hx of colonoscopy History of tonsillectomy and adenoidectomy (1972) initial sx age 2, revision age 12 Hx of total hysterectomy with removal of both tubes and ovaries at age 28, also removed gallbladder and appendix at same time Family History Mother Myocardial infarction Other No family history of adverse response to anesthesia Denies family history of Ovarian cancer Prostate cancer Breast cancer Colorectal cancer Social History Smoking Status: Never smoker Second Hand Exposure: Yes (parents smoked, sister smokes currently); Do You Dip or Chew Tobacco: No; Tobacco Cessation Education Requested by Patient: No Hx Alcohol Use: Yes Alcohol type: beer Alcohol Intake Frequency: Monthly or Less Hx Substance Use: No Preferred Language: Thai Communication Ability: Effective Visual Impairment: No Limitations Hearing Ability: Normal Teller Supervisor Required: No Beliefs That Will Affect Care: None marital status: Single Current Living Situation: Family Current Living Situation Comment: lives with sister current occupational status: retired Other Information That Helps Us Care for You: No Feels Safe at Home: Yes Safety Concerns: Feels Safe At This Time Childhood Exposure to Second-Hand Smoke: Yes Diet: low carbohydrate caffeine: Yes during the past year weight has: remained stable Dental Care, Regularly: No Physical Activity Frequency: 5-6 Times per Week Seatbelt Use: always Sunscreen Use: No Assistive Devices: Glasses Assistive Devices Comment: insulin pump Review of Systems Review of Systems: All systems reviewed & are unremarkable except as noted in HPI & below Physical Exam Physical Exam: Constitutional: No acute distress HEENT: EOMI, PERRLA Respiratory system: Good air entry bilaterally, no wheeze, no rhonchi, minimal crackles bilateral lower lobes CVS: S1-S2 positive, positive 2 out of 6 systolic murmur appreciated best at aorta Abdomen: Soft, nontender, nondistended, positive bowel sounds x4 Extremities: +2 pulses bilaterally radialis/ dorsalis pedis, no cyanosis, no edema Neuro: Awake alert oriented x3 Psych: Normal mood and affect G/U: Positive Stacy Right sided wound VAC in place Skin: no rashes, warm and dry Lymphatic: no cervical or axillary lymphadenopathy Results & Data Results & Data Vital Signs (Past 12 Hours) Vital Signs Temp Pulse Pulse Resp BP BP BP 06/04/24 17:07 36.5 C 06/04/24 16:20 78 14 134/63 06/04/24 16:10 36.4 C L 78 14 125/60 06/04/24 16:00 78 16 128/58 L 06/04/24 15:50 77 16 123/56 L 06/04/24 15:40 77 15 128/58 L 06/04/24 15:30 72 16 135/74 06/04/24 15:22 36.3 C L 77 12 127/60 06/04/24 12:19 36.6 C 87 20 100/70 120/55 L Pulse Ox O2 Del Method O2 Flow Rate 06/04/24 17:07 06/04/24 16:20 100 Nasal Cannula 2 06/04/24 16:10 94 Nasal Cannula 2 06/04/24 16:00 99 Oxymask 2 06/04/24 15:50 100 Oxymask 4 06/04/24 15:40 97 Oxymask 4 06/04/24 15:30 95 Oxymask 6 06/04/24 15:22 96 Oxymask 6 06/04/24 12:19 94 Room Air Coding Level of Care Code 60678 IN/OBS CONSULT LVL 3,45M Diagnoses Peripheral arterial disease I73.9 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
[2024-06-04] MEDS: INSULIN ASPART PER UNIT CHARGE SC SCH (18:54)
[2024-06-04] MEDS: LACTATED RINGER'S 1,000 ML IV SCH ×2 (18:54→21:05)
[2024-06-04] MEDS ORDERED: GLUCOSE 10 TAB/TUBE PO PRN (21:30)
[2024-06-04] MEDS ORDERED: CARBOHYDRATES FOR HYPOGLYCEMIA PO PRN (21:30)
[2024-06-04] MEDS ORDERED: GLUCOSE 40% GEL 15 GM TUBE PO PRN (21:30)
[2024-06-04] MEDS ORDERED: DEXTROSE 50% 50 ML SYRINGE IV PRN (21:30)
[2024-06-04] MEDS ORDERED: GLUCAGON FOR INJ 1 MG VIAL SQ PRN (21:30)
[2024-06-04] MEDS: LANTUS PER UNIT CHARGE SC ONE (21:42)
[2024-06-05 04:11] LABS: Basophils # (auto) 0.05 K/uL (0.00-0.20); Basophils % (auto) 0.5 %; Eosinophils # (auto) 0.06 K/uL (0.00-0.50); Eosinophils % (auto) 0.6 %; Hematocrit (blood only) 37.7 % (37.0-47.0); Hemoglobin 12.6 g/dl (12.0-16.0); Immature Granulocytes # (auto) 0.05 K/uL (0.01-0.20); Immature Granulocytes % (auto) 0.5 %; Lymphocytes # (auto) 1.86 K/uL (1.20-3.40); Lymphocytes % (auto) 17.6 %; Mean Corpuscular Hemoglobin 30.1 pg (25.0-34.0); Mean Corpuscular Hgb Conc 33.4 g/dL (32.0-36.0); Mean Platelet Volume 9.8 fL (9.4-12.4); Monocytes # (auto) 1.11 K/uL (0.11-0.59); Monocytes % (auto) 10.5 %; Neutrophils # (auto) 7.41 K/uL (1.40-6.50); Neutrophils % (auto) 70.3 %; Platelet Count 173 K/uL (130-400); RDW Coefficient of Variation 12.1 % (11.5-14.5); RDW Standard Deviation 39.8 fL (36.4-46.3); Red Blood Count 4.19 M/uL (4.20-5.40); White Blood Count 10.54 K/ul (4.8-10.8)
[2024-06-05 04:35] LABS: BUN Creatinine Ratio 13.1 (10-20); Calcium 8.7 mg/dl (8.6-10.3); Creatinine Clr Calc Pharmacy 73.2 ml/min
[2024-06-05] MEDS: INSULIN ASPART PER UNIT CHARGE SC SCH (04:40)
[2024-06-05] MEDS: LEVOTHYROXINE SODIUM 100 MCG TABLET PO SCH (05:20)
--- NOTE | 2024-06-05 07:35 | Critical Care Progress Note ---
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 Fitzgerald Monitor pulses Watch for any signs of bleeding -- Diabetes type 1 On insulin pump at home ICU hypoglycemia protocol Will get ICU glycemic consult -- Hypothyroidism Continue with levothyroxine -- Obesity Advised to lose weight diet and exercise --Prophylaxis VTE: None GI: None Lines: Left radial, peripheral Diet: Diabetic Plan: In/out: +120, urine output 780 DC A-line Disposition as per vascular surgery Please note the above document was generated using voice recognition software. It may contain grammatical, syntax or spelling errors.Any formal questions or concerns about the content, text or information contained within the body of this dictation should be directly addressed to the provider for clarification. Admission and Anticipated Discharge Date Admission Date: June 04, 2024 Subjective Patient seen and examined at bedside. No acute distress, no adverse events overnight Denies any chest pain, no shortness of breath, no headache, no nausea or vomiting No abdominal pain Right groin pain is still there but significantly improved from before No leg pain Fair appetite, mild sore throat but no difficulty swallowing Review of Systems 2 Review of Systems: All systems reviewed & are unremarkable except as noted in Subjective Physical Exam 2 Physical Exam: Constitutional: No acute distress HEENT: EOMI, PERRLA Respiratory system: Good air entry bilaterally, no wheeze, no rhonchi, minimal crackles bilateral lower lobes CVS: S1-S2 positive, positive 3 out of 6 systolic murmur appreciated best at aorta Abdomen: Soft, nontender, nondistended, positive bowel sounds x4 Extremities: +2 pulses bilaterally radialis/ dorsalis pedis, no cyanosis, no edema Neuro: Awake alert oriented x3 Psych: Normal mood and affect G/U: Positive Stacy Right sided wound VAC in place Skin: no rashes, warm and dry Lymphatic: no cervical or axillary lymphadenopathy Results & Data Results & Data Vital Signs (Past 12 Hours) Vital Signs Temp Pulse Resp BP Pulse Ox O2 Del Method 06/05/24 07:12 36.7 C 06/05/24 05:09 97 H 20 131/75 94 06/05/24 04:57 94 H 19 95 06/05/24 04:00 97 H 17 141/67 H 98 06/05/24 03:03 95 H 6 L 158/81 H 97 06/05/24 02:57 105 H 16 90 06/05/24 02:00 98 H 16 150/79 H 95 06/05/24 01:00 161/84 H 06/05/24 01:00 95 H 0 L 161/84 H 92 06/05/24 00:06 93 H 12 154/81 H 95 06/04/24 23:59 Room Air 06/04/24 23:57 94 H 16 94 06/04/24 23:40 36.4 C L 06/04/24 23:30 97 H 06/04/24 23:00 96 H 15 137/73 90 06/04/24 22:09 96 H 17 96 06/04/24 22:00 166/77 H 06/04/24 21:57 98 H 17 95 06/04/24 21:42 99 H 18 95 06/04/24 21:01 153/78 H 06/04/24 20:51 95 H 17 94 06/04/24 20:09 94 H 15 133/70 88 L 06/04/24 19:57 101 H 15 94 06/04/24 19:37 156/82 H Laboratory Results 06/05/24 03:53 06/05/24 03:53 Coding Level of Care Code 08606 SUB INP/OBS CARE 09/20MIN Diagnoses Peripheral arterial disease I73.9 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
[2024-06-05] MEDS: FUROSEMIDE 40 MG TAB PO SCH (07:39)
[2024-06-05] MEDS: LANTUS PER UNIT CHARGE SC ONE (08:23)
--- NOTE | 2024-06-05 13:14 | Surgery Progress Note ---
Date of Service June 05, 2024 Assessment & Plan (1) Peripheral arterial disease: Plan: Patient POD #1 from right femoral endart. Doing well. Good distal flow. Will transfer to flow. Will need rehab for short period of time. She should be ready to be discharged possibly tomorrow. Admission and Anticipated Discharge Date Admission Date: June 04, 2024 Subjective Patient complaining of right groin incisional pain. No complaints of foot pain. Physical Exam Constitutional: WD/WN, vitals as above Respiratory: normal respiratory effort; no respiratory distress Cardiovascular: Rate/Rhythm: regular rate and regular rhythm Vessels: dorsalis pedis pulses present Extremities: normal capillary refill Skin: + incision (prevena in place) Neurologic: CN's II-XI intact bilaterally and moves all extremities Psychiatric: A+Ox3, euthymic affect Results & Data Vital Signs (Past 12 Hours) Vital Signs Temp Pulse Resp BP Pulse Ox Pulse Ox O2 Del Method 06/05/24 10:54 36.8 C 06/05/24 09:28 111/61 06/05/24 09:28 111/61 06/05/24 09:28 111/61 06/05/24 09:27 104 H 22 95 06/05/24 09:15 109 H 19 94 06/05/24 09:14 104/63 06/05/24 09:12 101 H 18 96 06/05/24 09:00 95 H 20 93 06/05/24 09:00 120/57 L 06/05/24 09:00 120/57 L 06/05/24 08:00 103 H 24 87 L 06/05/24 08:00 126/80 06/05/24 08:00 126/80 06/05/24 08:00 95 06/05/24 08:00 Room Air 06/05/24 08:00 99 H 06/05/24 07:12 36.7 C 06/05/24 07:03 91 H 21 94 06/05/24 07:01 116/66 06/05/24 07:01 116/66 06/05/24 07:01 11666 06/05/24 06:39 94 H 20 95 06/05/24 06:12 90 19 94 06/05/24 05:09 97 H 20 131/75 94 06/05/24 04:57 94 H 19 95 06/05/24 04:00 97 H 17 141/67 H 98 06/05/24 03:03 95 H 6 L 158/81 H 97 06/05/24 02:57 105 H 16 90 06/05/24 02:00 98 H 16 150/79 H 95 O2 Del Method 06/05/24 10:54 06/05/24 09:28 06/05/24 09:28 06/05/24 09:28 06/05/24 09:27 06/05/24 09:15 06/05/24 09:14 06/05/24 09:12 06/05/24 09:00 06/05/24 09:00 06/05/24 09:00 06/05/24 08:00 06/05/24 08:00 06/05/24 08:00 06/05/24 08:00 Room Air 06/05/24 08:00 06/05/24 08:00 06/05/24 07:12 06/05/24 07:03 06/05/24 07:01 06/05/24 07:01 06/05/24 07:01 06/05/24 06:39 06/05/24 06:12 06/05/24 05:09 06/05/24 04:57 06/05/24 04:00 06/05/24 03:03 06/05/24 02:57 06/05/24 02:00
--- NOTE | 2024-06-05 13:56 | Pharmacy Report ---
Pharmacy Glycemic Short Note 2 - Date of Service June 05, 2024 - Glycemic Short BSG Results (Last 24 hours): 06/04/24 06/04/24 06/04/24 15:26 15:45 16:18 Glucose POC Glucose 69 L* 145 H 101 H 06/04/24 06/04/24 06/05/24 16:47 20:21 03:53 Glucose 309 H* POC Glucose 109 H 268 H 06/05/24 06/05/24 07:09 11:07 Glucose POC Glucose 266 H 286 H OUTPATIENT ANTIDIABETIC REGIMEN: * Novolog insulin pump at 0.7 units/hr (16.8 units/day) + SSI per meal prn * HbA1c: 7.5% (03/31/24) ASSESSMENT: * 63 yo F admitted on 06/04/24 postoperatively following an endarterectomy with Dr. Fitzgerald. Pharmacy has been consulted to assist with inpatient glycemic management. Patient is a Type 1 diabetic as an outpatient. Please refer to outpatient regimen and most recent HbA1c above. * Postoperatively patient was hypoglycemic twice yesterday. Around lunchtime at 47 mg/dL requiring a full amp of D50, and again at dinner time at 63 mg/dL requiring a half amp of D50. Appears patient was asymptomatic with each event. Unclear if patient was still wearing insulin pump upon arrival or throughout surgery. * Given 8 units of basal last night and started on Novolog based on weight stress of 2. BSG was 268 mg/dL at bedtime. * Fasting BSG was elevated at 266 mg/dL this AM. Gave another 8 units of basal with plan to start it BID to match home dosing. Also tightened Novolog to reflect weight/stress of 3. * Lunchtime BSG returned at 286 mg/dL despite patient receiving bolus doses of 6 and 12 units this morning. This is surprising as most type I diabetics are very sensitive to bolus insulin. Patient is behaving more in a type II manner. Checked previous admission data from January of this year and patient was receiving up to 25 units of basal per day in addition to bolus insulin based on weight/stress of 3. * Therefore, plan to give another 8 units of basal stat. Hesitant to adjust Novolog at this time to prevent stacking. Will have MARKETING/SALES PERSON recheck BSG at 1500 an depending on that, may add an addition HS basal scale for tonight. No plans to go back on pump at this time. PLAN FOR INPATIENT GLYCEMIC CONTROL: * Basal insulin * Lantus 8 units SC x 1 this AM * Lantus 8 units SC x 1 around 1400 * Lantus 0-10 units SC HS per scale (0 units for BSG < 140 mg/dL; 5 units for BSG 140-200 mg/dL; 10 units for BSG > 200 mg/dL) * Bolus insulin * NovoLog per scale ACHS or Q6hrs while NPO * Goal Range: Low 110 mg/dL - High 140 mg/dL * Correction Factor: 25 mg/dL/unit * Nutritional / Prandial insulin per carb ratio of 1 unit per 8 grams CHO consumed
[2024-06-05] MEDS: LANTUS PER UNIT CHARGE SC STA (13:58)
[2024-06-05] MEDS: INSULIN HUMAN REGULAR PER UNIT 8 UNITS in SYRINGE 7.92 ML IV ONE (20:26)
[2024-06-05 20:49] VITALS: RESP 18
[2024-06-05] MEDS: LANTUS PER UNIT CHARGE SC SCH (22:15)
[2024-06-05] MEDS: oxyCODONE/ACETAMINOPHEN 5mg/325mg TAB PO PRN (22:20)
[2024-06-06 07:10] VITALS: TEMP 98.2
[2024-06-06 08:06] VITALS: BP 101/69; PULSE 88; O2SAT 95
[2024-06-06] MEDS: LANTUS PER UNIT CHARGE SC ONE (08:57)
--- NOTE | 2024-06-06 11:37 | Surgery Progress Note ---
Date of Service June 06, 2024 Assessment & Plan (1) Peripheral arterial disease: Plan: Patient POD #2 from right femoral endart. Doing well. Good distal flow. D/C home today. Pt does not wish to go to rehab. Admission and Anticipated Discharge Date Admission Date: June 04, 2024 Subjective 63 yo f POD #2 after R MANAGER SHIPPING endarterectomy with bovine patch. Doing well post op. Patient complaining of right groin incisional pain, improved compared to yesterday. No complaints of foot pain. Review of Systems Review of Systems: All systems reviewed & are unremarkable except as noted in HPI & below Physical Exam Constitutional: WD/WN, vitals as above Respiratory: normal respiratory effort; no respiratory distress Cardiovascular: Rate/Rhythm: regular rate and regular rhythm Vessels: dorsalis pedis pulses present Extremities: normal capillary refill Skin: + incision (prevena in place) Neurologic: CN's II-XI intact bilaterally and moves all extremities Psychiatric: A+Ox3, euthymic affect Results & Data Vital Signs (Past 12 Hours) Vital Signs Temp Pulse Resp BP Pulse Ox O2 Del Method 06/06/24 08:05 88 101/69 95 Room Air 06/06/24 07:08 36.8 C 84 18 93/62 L 94 Room Air
== END 2024-06-06 13:17 | disposition home or self-care (01) | DRG 254 ==
LOC: ASU 11:27 → 1E 12:52 → 3N 06-05 16:59
DX: E10.51 Type 1 diabetes mellitus with diabetic peripheral angiopathy without gangrene; Z68.32 Body mass index [BMI] 32.0-32.9, adult; I70.211 Atherosclerosis of native arteries of extremities with intermittent claudication, right leg; E78.5 Hyperlipidemia, unspecified; E66.9 Obesity, unspecified; E10.40 Type 1 diabetes mellitus with diabetic neuropathy, unspecified; E03.9 Hypothyroidism, unspecified; Z79.890 Hormone replacement therapy; Z88.7 Allergy status to serum and vaccine

== ENCOUNTER 2024-08-28 18:16 | Inpatient (IN) ==
[2024-08-28] MEDS: ONDANSETRON INJ 2 MG/ML 2 ML VIAL ONE (18:30)
[2024-08-28] MEDS: fentaNYL citrate 2,500 MCG/250 ML BAG IV SCH (18:58)
--- NOTE | 2024-08-28 19:13 | XRay Report ---
EXAM: X-ray chest one-view portable CLINICAL HISTORY: Stroke alert PRIORS: 03/31/2024 TECHNIQUE: Frontal view chest FINDINGS: An endotracheal tube is present, terminating approximately 1.5 cm above the muna. Lung volumes are diminished. Heart size is normal. No pneumothorax. Osseous structures demonstrate no acute abnormality. No radiopaque foreign body. IMPRESSION: Endotracheal tube terminating 1.5 cm superior to the muna. Tube could be withdrawn approximately 3 cm or as appropriate. Electronically signed by Talisha Colvin 08-28-2024 7:13 PM
[2024-08-28] MEDS: RAPID SEQUENCE INDUCTION BAG ONE (19:33)
[2024-08-28] MEDS: STAT IV Infusion **Titration per Protocol STA (19:33)
[2024-08-28] MEDS: PROPOFOL IV EMULSION 10 MG/ML 100 ML VIAL IV ONE (19:33)
[2024-08-28] MEDS: SODIUM CHLORIDE 0.9% 1,000 ML IV SCH (19:42)
[2024-08-28] MEDS ORDERED: STAT IV Infusion **Titration per Protocol STA ×2 (19:43→20:44)
[2024-08-28] MEDS ORDERED: PROPOFOL BOLUS FROM BAG IV PRN (19:43)
[2024-08-28 19:44] LABS: iSTAT Arterial Blood Gas HCO3 4 meg/L (19-24); iSTAT Arterial Blood Gas pCO2 21 mmHg (35-46); iSTAT Arterial Blood Gas pH 6.92 (7.35-7.45); iSTAT Arterial Blood Gas pO2 85 mmHg (80-95); iSTAT Carbon Dioxide < 5 mmol/L (24-31); iSTAT Hematocrit 32 % (37-47); iSTAT Hemoglobin 10.9 g/dl (12.0-16.0); iSTAT Potassium 5.5 mmol/L (3.3-5.0); iSTAT Sodium 130 mmol/L (135-144)
[2024-08-28 19:44] LABS: iSTAT Arterial Blood Gas HCO3 5 meg/L (19-24); iSTAT Arterial Blood Gas pCO2 23 mmHg (35-46); iSTAT Arterial Blood Gas pH 6.93 (7.35-7.45); iSTAT Arterial Blood Gas pO2 467 mmHg (80-95); iSTAT Carbon Dioxide 5 mmol/L (24-31); iSTAT Hematocrit 36 % (37-47); iSTAT Hemoglobin 12.2 g/dl (12.0-16.0); iSTAT Potassium 5.8 mmol/L (3.3-5.0); iSTAT Sodium 128 mmol/L (135-144)
[2024-08-28 19:44] LABS: iSTAT Blood Urea Nitrogen 90 mg/dl (7-18); iSTAT Carbon Dioxide 6 mmol/L (24-31); iSTAT Chloride 101 mmol/L (101-112); iSTAT Creatinine 3.1 mg/dl (0.6-1.3); iSTAT Glucose > 700 mg/dl (70-99); iSTAT Hematocrit 36 % (37-47); iSTAT Hemoglobin 12.2 g/dl (12.0-16.0); iSTAT Ionized Calcium 0.93 mmol/l (1.12-1.32); iSTAT Potassium 6.4 mmol/L (3.3-5.0); iSTAT Sodium 126 mmol/L (135-144)
[2024-08-28 19:56] LABS: iSTAT Blood Urea Nitrogen 93 mg/dl (7-18); iSTAT Carbon Dioxide 6 mmol/L (24-31); iSTAT Chloride 103 mmol/L (101-112); iSTAT Creatinine 2.8 mg/dl (0.6-1.3); iSTAT Glucose > 700 mg/dl (70-99); iSTAT Hematocrit 34 % (37-47); iSTAT Hemoglobin 11.6 g/dl (12.0-16.0); iSTAT Ionized Calcium 1.01 mmol/l (1.12-1.32); iSTAT Potassium 5.4 mmol/L (3.3-5.0); iSTAT Sodium 131 mmol/L (135-144)
[2024-08-28 19:57] LABS: Hematocrit (blood only) 37.3 % (37.0-47.0); Hemoglobin 11.2 g/dl (12.0-16.0); Mean Platelet Volume 10.9 fL (9.4-12.4); Platelet Count 245 K/uL (130-400); RDW Coefficient of Variation 13.2 % (11.5-14.5); RDW Standard Deviation 48.3 fL (36.4-46.3); Red Blood Count 3.73 M/uL (4.20-5.40); White Blood Count 15.23 K/ul (4.8-10.8)
[2024-08-28] MEDS: fentaNYL citrate PF 100 MCG/2 ML VIAL IV STA (20:03)
[2024-08-28] MEDS: fentaNYL citrate PF 100 MCG/2 ML VIAL ONE (20:14)
[2024-08-28] MEDS ORDERED: DEXTROSE 50% 50 ML SYRINGE IV PRN (20:16)
[2024-08-28] MEDS ORDERED: GLUCOSE 40% GEL 15 GM TUBE PO PRN (20:16)
[2024-08-28] MEDS ORDERED: CARBOHYDRATES FOR HYPOGLYCEMIA PO PRN (20:16)
[2024-08-28] MEDS ORDERED: GLUCOSE 10 TAB/TUBE PO PRN (20:16)
[2024-08-28] MEDS ORDERED: GLUCAGON FOR INJ 1 MG VIAL SQ PRN (20:16)
[2024-08-28 20:23] LABS: Basophils # (auto) 0.11 K/uL (0.00-0.20); Basophils % (auto) 0.7 %; Echinocytes 1+; Eosinophils # (auto) 0.01 K/uL (0.00-0.50); Eosinophils % (auto) 0.1 %; Immature Granulocytes # (auto) 1.44 K/uL (0.01-0.20); Immature Granulocytes % (auto) 9.5 %; Lymphocytes # (auto) 1.29 K/uL (1.20-3.40); Lymphocytes % (auto) 8.5 %; Monocytes # (auto) 2.58 K/uL (0.11-0.59); Monocytes % (auto) 16.9 %; Neutrophils % (auto) 64.3 %; Polychromasia 1+; Toxic Vacuolation 1+
--- NOTE | 2024-08-28 20:25 | XRay Report ---
Exam(s): XR CXR 1 VIEW EXAM: XR Chest, 1 View CLINICAL HISTORY: Reason for exam: line placement. TECHNIQUE: Frontal view of the chest. COMPARISON: No relevant prior studies available. FINDINGS: Lungs: Mild consolidative atelectasis in the left lung base. Reduced lung volumes. Pleural space: No pneumothorax. Mediastinum: Unremarkable. Bones/joints: Instrumentation related to the left humerus. Tubes, lines and devices: Endotracheal tube just above the orifice of the right mainstem bronchus. Right IJ central line near the junction of the right atrium and IVC. Upper abdomen: Cholecystectomy clips. IMPRESSION: 1. Endotracheal tube just above the orifice of the right mainstem bronchus. Reposition. 2. Right IJ central line near the junction of the right atrium and IVC. Electronically signed by: Agustin Waggoner M.D. 08/28/24 20:24 PM
[2024-08-28 20:33] LABS: Albumin Level 2.8 gm/dl (3.4-5.0); BUN Creatinine Ratio 24.8 (10-20); Bilirubin Direct 0.2 mg/dl (0-0.2); Bilirubin,Total 0.5 mg/dl (0.2-1.0); Creatinine Clr Calc Pharmacy 21.4 ml/min; Magnesium 2.4 mg/dl (1.7-2.4); Potassium 5.5 mmol/L (3.5-5.1); Total Protein 4.9 gm/dl (6.0-8.3)
--- NOTE | 2024-08-28 20:34 | CT Scan Report ---
Exam(s): CT HEAD Without Contrast EXAM: CT Head Without Intravenous Contrast CLINICAL HISTORY: Reason for exam: ams. TECHNIQUE: Axial computed tomography images of the head/brain without intravenous contrast. CTDI is 63.9 mGy and DLP is mGy-cm. Automated exposure control was utilized for the study. A dose lowering technique was utilized adhering to the principles of ALARA. COMPARISON: 02/23/24 FINDINGS: Brain: No intracranial hemorrhage. Senescent changes. No apparent acute cortical infarct. No midline shift. Ventricles: No hydrocephalus. Bones/joints: No acute fracture. Soft tissues: Unremarkable. Sinuses: Minimal sinus mucosal thickening. Mastoid air cells: No mastoid effusion. Orbits: Exophthalmos and bilateral cataract surgery. Endotracheal tube. IMPRESSION: No intracranial hemorrhage. Senescent changes. Electronically signed by: Agustin Waggoner M.D. 08/28/24 20:33 PM
[2024-08-28] MEDS ORDERED: SODIUM BICARB 8.4% INJ 50 MEQ/50 ML SYR IV STA (20:40)
[2024-08-28 20:44] LABS: INR 1.1 (0.9-1.1); Partial Thromboplastin Ratio 1.2; Partial Thromboplastin Time 31 Seconds (21-31); Prothrombin Time 11.9 Seconds (9.0-12.0)
[2024-08-28 20:47] LABS: Oxygen Saturation VBG 72.4 %; PCO2 VBG 24 mmHg (38-50); PO2 VBG 43 mmHg; pH VBG < 7.00 (7.36-7.41)
[2024-08-28] MEDS: SODIUM BICARB 8.4% INJ 50 MEQ/50 ML SYR IV ONE (20:48)
--- NOTE | 2024-08-28 20:54 | History & Physical Report ---
Date of Service August 28, 2024 Assessment & Plan (1) Admitted to intensive care unit: (2) Shock: (3) DKA (diabetic ketoacidosis): (4) ARF (acute renal failure): (5) Encephalopathy: (6) Metabolic acidosis: Plan The patient is a 63-year-old female with a past medical history including rectal mass, peripheral arterial disease, diabetic foot ulcer with osteomyelitis, lipidemia, peripheral neuropathy, hypothyroidism, and lower extremity edema. She presents to the emergency department via EMS, after family check on her for not having significant previous 3 days. They found her unresponsive lying in bed, and she reportedly had a glucose ordered by by EMS. The patient was ass essed by emergency department personnel, patient was intubated for airway protection, and was presented to the hospitalist service and ICU for admission. 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 She had last been seen by her family about 3 days ago, and when they checked on her, they found her lying in her bed in her house unresponsive. Primary Care Provider: KWAKU Garcia The patient is a 63-year-old female with a past medical history including rectal mass, peripheral arterial disease, diabetic foot ulcer with osteomyelitis, lipidemia, peripheral neuropathy, hypothyroidism, and lower extremity edema. She presents to the emergency department via EMS, after family check on her for not having significant previous 3 days. They found her unresponsive lying in bed, and she reportedly had a glucose ordered by by EMS. The patient was assessed by emergency department personnel, patient was intubated for airway protection, and was presented to the hospitalist service and ICU for admission. Allergies Allergy/AdvReac Type Severity Reaction Status Date / Time tetanus toxoid, adsorbed AdvReac Intermediate SWELLING Verified 08/15/24 13:04 AT SITE AND REDNESS Home Medications Medication Instructions Recorded Confirmed Type blood sugar diagnostic (OneTouch 09/04/22 08/28/24 History Ultra Test strips) blood-glucose meter (OneTouch 09/04/22 08/28/24 History Ultra2 Meter) blood-glucose meter,continuous #1 ea 02/26/23 08/28/24 Rx (Dexcom G7 Radar Engineer) pen needle, diabetic 32 gauge x #100 ea 02/26/23 08/28/24 Rx 5/16" (Comfort EZ Pen [place]) ibuprofen 200 mg tablet (Advil) 600 mg (3 x 200 mg) PO QID PRN 08/30/23 08/28/24 Rx fever or pain #30 tabs insulin syringe-needle U-100 0.3 #300 ea 02/08/24 08/28/24 Rx mL 31 gauge x 5/16" (BD Insulin Syringe Ultra-Fine) blood-glucose sensor (Dexcom G7 #9 ea 02/14/24 08/28/24 Rx Sensor device) furosemide 40 mg tablet (Lasix) 40 mg PO QAM 06/03/24 08/28/24 History glucagon 3 mg/actuation nasal spray 3 mg intranasal ONCE PRN 06/03/24 08/28/24 History Hypoglycemia oxycodone-acetaminophen 5 mg-325 1 - 2 tab PO Q6H PRN pain #20 tabs 06/06/24 08/28/24 Rx mg tablet (Percocet) insulin glargine 100 unit/mL (3 15 unit (0.15 mL) subcut BID #30 mL 07/23/24 08/28/24 Rx mL) subcutaneous pen (Lantus Solostar U-100 Insulin) levothyroxine 100 mcg tablet 100 mcg PO QAM #90 tabs 07/23/24 08/28/24 Rx rosuvastatin 40 mg tablet 40 mg PO QAM 07/31/24 08/28/24 History insulin aspart U-100 100 unit/mL See Rx Instructions .Route .COMPLEX 08/28/24 08/28/24 History subcutaneous solution Past Med/Surg History Problem List (Updated 08/29/24 @ 04:27 by Huber Gayle MD) Admitted to intensive care unit DKA (diabetic ketoacidosis) (Acute) ARF (acute renal failure) Encephalopathy Shock Metabolic acidosis DKA (diabetic ketoacidosis) Mass in rectum S/P vascular surgery Heart murmur Swelling of lower extremity LIDIA (acute kidney injury) 02/04/24 Elevated creatine kinase 02/04/24 Fall 02/04/24 Weakness 02/04/24 Hypotension (Acute) 02/04/24 Cubital tunnel syndrome Carpal tunnel syndrome History of partial amputation of toe of right foot Elevated blood pressure reading 08/21/23 Peripheral arterial disease (Acute) Stenosis of right femoral artery Hypokalemia (Acute) 04/25/23 Diabetic foot ulcer with osteomyelitis hx-surgery to remove Foot pain 04/25/23 Diabetic infection of right foot (Acute) 04/25/23 Loss of protective sensation of skin of foot Lower extremity edema 02/26/23 Hyperglycemia due to type 1 diabetes mellitus 01/30/23 Nausea & vomiting (Acute) 01/30/23 Elevated troponin (Acute) 01/30/23 Dyslipidemia 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 following with Dr. Fitzgerald's office. Rectal mass found in CT end of June 2024 - reason for upcoming procedure Hx of hypotension (01/2024) Hx of fall (02/04/24) no major injuries Dental caries pt. reports decayed teeth, needs dentures, not loose Sleep-disordered breathing denies sleep study- sister told pt. 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 dickerson - states his PA did not hear a cardiac murmur (05/14/24) Sensory neuropathy feet 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) hx-right foot Lower extremity edema hx - swelling has been much better since starting lasix Shoulder pain left, r/t arthritis Peripheral arterial disease Hx of angiography 06/2023, [facility], bilateral and abdominal aortogram Hyperlipidemia Hypothyroidism Surgical History History of endarterectomy (05/2024) right femoral endarterectomy History of cholecystectomy (1988) during hyster History of appendectomy (1988) during hyster History of tooth extraction History of cataract surgery (02/2024) rt/left History of partial amputation of toe of right foot (07/2023) pt. reports clipping toe nails and accidentally removing entire toe nail, which lead to infection History of carpal tunnel release (08/2023) left Hx of colonoscopy History of tonsillectomy and adenoidectomy (1972) initial sx age 2, revision age 12 Hx of total hysterectomy with removal of both tubes and ovaries at age 28, also removed gallbladder and appendix at same time Family History Mother Myocardial infarction Other No family history of adverse response to anesthesia Denies family history of Ovarian cancer Prostate cancer Breast cancer Colorectal cancer Social History Smoking Status: Never smoker Second Hand Exposure: Yes; Do You Dip or Chew Tobacco: No; Hx Alcohol Use: Yes Alcohol type: beer Alcohol Intake Frequency: Monthly or Less Hx Substance Use: No Preferred Language: Setswana Communication Ability: intubated Visual Impairment: No Limitations Hearing Ability: Normal Milk Wagon Driver Required: No Beliefs That Will Affect Care: None marital status: Single Current Living Situation: Family Current Living Situation Comment: lives with sister's family current occupational status: retired Other Information That Helps Us Care for You: No Feels Safe at Home: Yes Childhood Exposure to Second-Hand Smoke: Yes Diet: low carbohydrate caffeine: Yes during the past year weight has: remained stable Dental Care, Regularly: No Physical Activity Frequency: 5-6 Times per Week Seatbelt Use: always Sunscreen Use: No Assistive Devices: Glasses Review of Systems Review of Systems: The patient is unable to contribute HPI or review of systems due to unresponsive state. Information was gathered from EMS, and when emergency department. The patient had already been triaged and intubated by the time seen by hospital medicine Physical Exam Physical Exam: The patient is intubated, unresponsive on the ventilator HEENT--PERRL, EOMI, mucous membranes and oropharynx dry. Neck--supple. No JVD. No bruits. Thyroid normal, trachea midline, no adenopathy. Heart--normal S1 and S2. No murmurs, rubs or gallops. Lungs--few coarse breath sounds bilaterally. Abdomen--normal bowel sounds and soft. Mildly tympanitic and mildly distended Extremities--no cyanosis or clubbing. No edema. Dermatologic--normal skin turgor, normal color, no abnormal lymph nodes, no rash. Neurologic--limited exam Rheumatologic--limited exam Psychiatric--intubated and sedated Results & Data Results & Data Vital Signs (Past 12 Hours) Vital Signs Temp Pulse Resp BP Pulse Ox O2 Del Method O2 Flow Rate 08/28/24 20:27 93 H 16 96 Mechanical Vent 08/28/24 19:00 84/52 L 08/28/24 19:00 84/52 L 08/28/24 18:59 101 H 29 H 100 08/28/24 18:57 35.6 C L 08/28/24 18:56 100 H 30 H 99 08/28/24 18:55 89/58 L 08/28/24 18:55 89/58 L 08/28/24 18:55 89/58 L 08/28/24 18:53 100 H 27 H 99 08/28/24 18:51 97/57 L 08/28/24 18:51 97/57 L 08/28/24 18:50 101 H 24 100 08/28/24 18:43 89/71 L 08/28/24 18:36 60/40 L 08/28/24 18:36 60/40 L 08/28/24 18:36 60/40 L 08/28/24 18:29 106 H 34 H 99 08/28/24 18:26 108 H 35 H 100 08/28/24 18:26 152/122 H 08/28/24 18:26 152/122 H 08/28/24 18:26 152/122 H 08/28/24 18:26 152/122 H 08/28/24 18:26 108 H 08/28/24 18:24 72/39 L 08/28/24 18:23 109 H 35 H 08/28/24 18:20 65/54 L 08/28/24 18:20 65/54 L 08/28/24 17:54 100 Ambu-Bag 15 08/28/24 17:54 35.6 C L 99 H 26 H 100 Ambu-Bag 15 Laboratory Results Laboratory Results WBC 15.68 K/ul (4.8-10.8) H 08/28/24 20:39 RBC 3.85 M/uL (4.20-5.40) L 08/28/24 20:39 Hgb 11.7 g/dl (12.0-16.0) L 08/28/24 20:39 POC Hgb 11.2 g/dl (12.0-16.0) L 08/29/24 00:52 Hct 38.2 % (37.0-47.0) 08/28/24 20:39 POC Hct 33 % (37-47) L 08/29/24 00:52 MCV 99.2 fL (80.0-100.0) 08/28/24 20:39 MCH 30.4 pg (25.0-34.0) 08/28/24 20:39 MCHC 30.6 g/dL (32.0-36.0) L 08/28/24 20:39 RDW Std Deviation 48.3 fL (36.4-46.3) H 08/28/24 20:39 RDW Coeff of Tressa 13.2 % (11.5-14.5) 08/28/24 20:39 Plt Count 256 K/uL (130-400) 08/28/24 20:39 MPV 11.1 fL (9.4-12.4) 08/28/24 20:39 Immature Gran % (Auto) 9.4 % 08/28/24 20:39 Neut % (Auto) 62.1 % 08/28/24 20:39 Lymph % (Auto) 9.2 % 08/28/24 20:39 [place] % (Auto) 18.6 % 08/28/24 20:39 Eos % (Auto) 0.1 % 08/28/24 20:39 Baso % (Auto) 0.6 % 08/28/24 20:39 Neut # (Auto) 9.72 K/uL (1.40-6.50) H 08/28/24 20:39 Lymph # (Auto) 1.45 K/uL (1.20-3.40) 08/28/24 20:39 [place] # (Auto) 2.92 K/uL (0.11-0.59) H 08/28/24 20:39 Eos # (Auto) 0.01 K/uL (0.00-0.50) 08/28/24 20:39 Baso # (Auto) 0.10 K/uL (0.00-0.20) 08/28/24 20:39 Immature Gran # (Auto) 1.48 K/uL (0.01-0.20) H 08/28/24 20:39 Toxic Vacuolation 1+ 08/28/24 20:39 Polychromasia 1+ 08/28/24 20:39 Echinocytes 1+ 08/28/24 20:39 PT 11.9 Seconds (9.0-12.0) 08/28/24 19:40 INR 1.1 (0.9-1.1) 08/28/24 19:40 APTT 31 Seconds (21-31) 08/28/24 19:40 PTT Ratio 1.2 08/28/24 19:40 Specimen Type Arterial 08/29/24 00:52 Sample Site Art Line 08/29/24 00:52 POC pH 7.05 (7.35-7.45) L* 08/29/24 00:52 POC pCO2 15 mmHg (35-46) L 08/29/24 00:52 POC pO2 156 mmHg (80-95) H 08/29/24 00:52 POC HCO3 4 opal/L (19-24) L 08/29/24 00:52 POC Total CO2 < 5 mmol/L (24-31) L* 08/29/24 00:52 POC Base Excess -26.0 opal/L (-9-1.8) L 08/29/24 00:52 O2 Sat Pulse Oximetry 99 08/29/24 00:52 ABG pH (Temp Correct) 7.080 (7.35-7.45) L* 08/29/24 00:52 ABG pCO2 (Temp Corrct 13 mmHg (35-46) L 08/29/24 00:52 POC ABG pO2 at Pt Temp 143 08/29/24 00:52 POC ABG O2 Sat 98.0 % (90-95) H 08/29/24 00:52 Morgan Test NA 08/29/24 00:52 VBG pH 7.09 (7.36-7.41) L 08/29/24 00:28 VBG pCO2 24 mmHg (38-50) L 08/28/24 20:39 VBG pO2 43 mmHg 08/28/24 20:39 VBG HCO3 TNP 08/28/24 20:39 VBG O2 Saturation 72.4 % 08/28/24 20:39 VBG Base Excess TNP 08/28/24 20:39 O2 Delivery Device Ventilator 08/29/24 00:52 Vent Mode AC 08/29/24 00:52 POC FiO2 30 % 08/29/24 00:52 End Tidal CO2 13 08/29/24 00:52 POC Sodium 134 mmol/L (135-144) L 08/29/24 00:52 Sodium 135 mmol/L (136-145) L 08/29/24 00:28 POC Potassium 3.6 mmol/L (3.3-5.0) 08/29/24 00:52 Potassium 3.5 mmol/L (3.5-5.1) D 08/29/24 00:28 POC Chloride 103 mmol/L (101-112) 08/28/24 19:44 Chloride 100 mmol/L (98-107) 08/29/24 00:28 Carbon Dioxide 5 mmol/L (21-32) L* 08/29/24 00:28 POC Total CO2 6 mmol/L (24-31) L* 08/28/24 19:44 Anion Gap 30 (3-11) H 08/29/24 00:28 POC Anion Gap 28.0 mmol/L (16-25) H 08/28/24 19:44 POC BUN 93 mg/dl (7-18) H 08/28/24 19:44 BUN 81 mg/dl (6-23) H 08/29/24 00:28 Creatinine 2.96 mg/dl (0.6-1.2) H 08/29/24 00:28 POC Creatinine 2.8 mg/dl (0.6-1.3) H 08/28/24 19:44 Est Cr Clr Drug Dosing 22.4 ml/min 08/29/24 00:28 eGFR 17.21 08/29/24 00:28 BUN/Creatinine Ratio 27.4 (10-20) H 08/29/24 00:28 Glucose 961 mg/dl (70-99(Fasting)) H* 08/29/24 03:22 POC Glucose > 600 mg/dl (70-99) H* 08/28/24 21:21 POC Glucose (other) > 700 mg/dl (70-99) H* 08/29/24 00:49 Estimat Average Glucose 203 mg/dl 08/28/24 20:39 Hemoglobin A1c 8.7 % (4.5-5.6) H 08/28/24 20:39 Osmolality 390 mOsm/kg (280-300) H* 08/28/24 20:39 Lactate 5.1 mmol/L (0.4-2.0) H* 08/28/24 22:47 Calcium 6.6 mg/dl (8.6-10.3) L 08/29/24 00:28 POC Ioniz Calcium Aliya 1.01 mmol/l (1.12-1.32) L 08/28/24 19:44 Phosphorus 5.5 mg/dl (2.5-4.9) H 08/29/24 00:28 Magnesium 2.1 mg/dl (1.7-2.4) 08/29/24 00:28 Total Bilirubin 0.5 mg/dl (0.2-1.0) 08/28/24 20:39 Direct Bilirubin 0.2 mg/dl (0-0.2) 08/28/24 19:40 AST 21 U/L (13-39) 08/28/24 20:39 ALT 8 U/L (7-52) 08/28/24 20:39 Alkaline Phosphatase 63 U/L (34-104) 08/28/24 20:39 Troponin I High Sens 98.7 pg/ml (0-14) H* 08/28/24 22:47 Total Protein 4.9 gm/dl (6.0-8.3) L 08/28/24 20:39 Albumin 2.8 gm/dl (3.4-5.0) L 08/28/24 20:39 Globulin 2.1 gm/dl (2.5-4.0) L 08/28/24 20:39 Albumin/Globulin Ratio 1.3 (0.9-2) 08/28/24 20:39 Lipase 9 U/L (11-82) L 08/28/24 19:40 Procalcitonin 5.50 ng/ml (0-0.5) H 08/28/24 19:41 TSH 0.853 uIu/ml (0.300-4.500) 08/28/24 20:39 Urine Color Yellow 08/28/24 20:35 Urine Appearance Cloudy (Clear) A 08/28/24 20:35 Urine pH 5.0 (4.5-7.5) 08/28/24 20:35 Ur Specific [place] 1.026 (1.000-1.030) 08/28/24 20:35 Urine Protein 1+ (Negative) H 08/28/24 20:35 Urine Glucose (UA) 3+ (Negative) H 08/28/24 20:35 Urine Ketones 2+ (Negative) H 08/28/24 20:35 Urine Blood 1+ (Negative) H 08/28/24 20:35 Urine Nitrite Negative (Negative) 08/28/24 20:35 Urine Bilirubin Negative (Negative) 08/28/24 20:35 Urine Urobilinogen Negative (Negative) 08/28/24 20:35 Ur Leukocyte Esterase Negative (Negative) 08/28/24 20:35 Urine WBC (Auto) 0-5 /hpf (0-5) 08/28/24 20:35 Urine RBC (Auto) 0-2 /hpf (0-2) 08/28/24 20:35 U Hyaline Cast (Auto) 11-20 /lpf (0-2) H 08/28/24 20:35 U Epithel Cells (Auto) 3-5 /hpf (0-2) H 08/28/24 20:35 Urine Bacteria (Auto) None Seen (None Seen) 08/28/24 20:35 Amorphous Sediment Present (None Prsent) A 08/28/24 20:35 Granular Casts Present /lpf (None Prsent) A 08/28/24 20:35 Nasal Screen MRSA (PCR) Negative (Negative) 08/28/24 23:30 Urine Opiates Screen Neg (Neg) 08/28/24 20:35 Ur Methadone, Qual Neg (Neg) 08/28/24 20:35 Urine Fentanyl Screen Neg (Neg) 08/28/24 20:35 Urine Barbiturates Neg (Neg) 08/28/24 20:35 Ur Phencyclidine (PCP) Neg (Neg) 08/28/24 20:35 U Amphetamin/Meth Scrn Neg (Neg) 08/28/24 20:35 MDMA (Ecstasy) Screen Neg (Neg) 08/28/24 20:35 U Benzodiazepines Scrn Neg (Neg) 08/28/24 20:35 Ur Cocaine Metabolite Neg (Neg) 08/28/24 20:35 U Marijuana (THC) Screen Neg (Neg) 08/28/24 20:[address] 08/28/24 18:31 Exam(s): CT HEAD Without Contrast EXAM: CT Head Without Intravenous Contrast CLINICAL HISTORY: Reason for exam: ams. TECHNIQUE: Axial computed tomography images of the head/brain without intravenous contrast. CTDI is 63.9 mGy and DLP is mGy-cm. Automated exposure control was utilized for the study. A dose lowering technique was utilized adhering to the principles of ALARA. COMPARISON: 02/23/24 FINDINGS: Brain: No intracranial hemorrhage. Senescent changes. No apparent acute cortical infarct. No midline shift. Ventricles: No hydrocephalus. Bones/joints: No acute fracture. Soft tissues: Unremarkable. Sinuses: Minimal sinus mucosal thickening. Mastoid air cells: No mastoid effusion. Orbits: Exophthalmos and bilateral cataract surgery. Endotracheal tube. IMPRESSION: No intracranial hemorrhage. Senescent changes. Electronically signed by: Agustin Waggoner M.D. 08/28/24 20:33 PM Chest X-Ray 08/28/24 19:29 Exam(s): XR CXR 1 VIEW EXAM: XR Chest, 1 View CLINICAL HISTORY: Reason for exam: line placement. TECHNIQUE: Frontal view of the chest. COMPARISON: No relevant prior studies available. FINDINGS: Lungs: Mild consolidative atelectasis in the left lung base. Reduced lung volumes. Pleural space: No pneumothorax. Mediastinum: Unremarkable. Bones/joints: Instrumentation related to the left humerus. Tubes, lines and devices: Endotracheal tube just above the orifice of the right mainstem bronchus. Right IJ central line near the junction of the right atrium and IVC. Upper abdomen: Cholecystectomy clips. IMPRESSION: 1. Endotracheal tube just above the orifice of the right mainstem bronchus. Reposition. 2. Right IJ central line near the junction of the right atrium and IVC. Electronically signed by: Agustin Waggoner M.D. 08/28/24 20:24 PM Code Status & VTE Plan Code Status Conditional code VTE Prophylaxis Plan VTE Prophylaxis will be ordered: Yes PG Care Time/CCT Total # of Minutes Spent Total Time Spent with Patient: Total time spent is greater than 50% in coordination of care (as documented) at patient's floor/unit and/or counseling patient: 55 minutes Coding Level of Care Code 59723 INT INP/OBS CARE 3/75MIN Diagnoses Admitted to intensive care unit Z78.9 Shock R57.9 DKA (diabetic ketoacidosis) E13.11 Diabetes mellitus complication detail: with coma Diabetes mellitus type: other specified (including SHILPA) ARF (acute renal failure) N17.9 Encephalopathy G93.40 Metabolic acidosis E87.20 (3) DKA (diabetic ketoacidosis) Diabetes mellitus complication detail: with coma Diabetes mellitus type: other specified (including SHILPA) Qualified Code(s): E13.11 - Other specified diabetes mellitus with ketoacidosis with coma
[2024-08-28] MEDS: NOREPINEPHRINE/D5W 4 MG/250 ML PLCT IV SCH (20:58)
[2024-08-28 21:04] LABS: Amorphous Sediment Urine Present (None Prsent); Appearance Urine Cloudy (Clear); Bacteria Urine Automated None Seen (None Seen); Bilirubin Urine Negative (Negative); Blood Urine 1+ (Negative); Color Urine Yellow; Glucose Urine UA 3+ (Negative); Granular Casts Urine Present /lpf (None Prsent); Ketones Urine 2+ (Negative); Leukocyte Esterase Urine Negative (Negative); Nitrite Urine Negative (Negative); Protein Urine 1+ (Negative); RBC Urine Automated 0-2 /hpf (0-2); Specific Gravity Urine 1.026 (1.000-1.030); Urobilinogen Urine Negative (Negative); WBC Urine Automated 0-5 /hpf (0-5)
[2024-08-28] MEDS: SODIUM CHLORIDE 0.9% 1,000 ML IV ONE (21:04)
[2024-08-28 21:09] LABS: Estimated Average Glucose 203 mg/dl; Hemoglobin A1C 8.7 % (4.5-5.6)
[2024-08-28] MEDS: SODIUM BICARBONATE 8.4% 150 MEQ in WATER, STERILE 1,000 ML IV SCH (21:11)
[2024-08-28] MEDS: INSULIN REGULAR 250 UNITS in SODIUM CHLORIDE 0.9% 247.5 ML IV SCH (21:14)
--- NOTE | 2024-08-28 21:15 | Critical Care Consultation ---
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 Currently requiring escalating dose of vasopressors and acid base support as well as insulin infusion. Neuro - Encephalopathy, Sedation for mechanical ventilation CAM ICU: LATRELL - Metabolic encephalopathy- at this time multifactorial to include severely elevated glucose, severe acidemia, and with hypotension - concerning for cerebral injury with unknown time of unresponsiveness/coma in setting of above - Continue with resuscitation efforts - Head CT negative for bleed or mass effect - Follow pupillometer exams - Sedation with Fentanyl at this time - Consider advanced imaging and/or EEG if no improvement with correction of glucose and/or PH Cardiac - Shock, PAD, elevated HsCTNI - Shock multifactorial- sepsis and hypovolemia combination is likely in setting of severe DKA - She has been resuscitated at this time with ~ 5 L of crystalloid - Vasopressors have been increasing despite volume- appreciate central line placed by EMD - Sepsis can't be excluded at this time noting- WBC and elevated PCT however all in setting of hypovolemia with DKA and ARF- will initiate broad spectrum abx prophy - sources- intraabdominal vs. skin from previous endarterectomy site vs other - PAD- stable chronic - Elevated HScTNI- likely demand in setting of shock- no ST elevations on ECG- bedside POCUS with adequate contractility of RV and LV Respiratory - Intubated and mechanically ventilated secondary to encephalopathy - Will be challenging to match her MV needs with her severe respiratory acidosis- minimal sedation and VT at 8ml/kg or higher if needed - She is without hypoxia GI - GERD, ? Gi illness, colon mass - nausea and vomiting with abd pain prior to hospitalization- this may be just related to her DKA however she is with elevated PCT - PPI IV BID - Patient was being worked up for colon mass and reportedly had colonoscopy scheduled for 08/29/24- this will likely need to be rescheduled until she is more stable at this time- should warrant discussion with GI on follow on care RENAL/LYTES - ARF, AGAP Metabolic Acidosis, electrolyte disturbances - Patient with non-oliguric ARF with baseline BODY ARTIST most recently of 0.86- currently 3.8- likely pre-renal secondary to hypovolemia and shock - I am hopeful that her refractory acidosis will improve with increase in insulin dose - continue with isotonic bicarb as maintenance - Serum osmo 390- GAP 28- osmolar gap 36- in setting of DKA and renal failure- no history of ETOH use - If patient remains with refractory acidosis and shock- may need CRRT vs. CLINICAL RESEARCH NURSE- not sure if patient would normally be interested in this - Follow K, MG, Ca - Tox screen negative - No acute needs - Stacy placed making adequate urine at this time ENDO - DKA, Hypothyroidism - Patient with PH <7, Glucose >1K, HCO3 4, ketones in urine- severe acidosis and elevated glucose - as she is remaining with PH <7.1 on bicarb infusion and insulin- will increase her insulin drip from 0.15units/kg/hr to 0.2units/kg/hour, until PH improves and glucose decreases. - She will be at high risk for cerebral edema with glucose levels and hypovolemic state - TSH 0.853- Consider levothyroxine IV at 30-50% of dose while intubated and on vasopressors HEME - No acute needs - follow leukocytosis and HGB levels with replacing volume ID - Septic Shock - At this time unable to rule out infection as cause- however source is not clearly identified - She is with WBC elevation - which may also be hemoconcentrated, HYPOthermia, and she is with elevated PCT in setting of GI symptoms reported at home and colon mass. - CXR without opacifications - LFTS not elevated, lipase <9 - urine does not appear infected - abd is soft and not distended- but will empirically cover for poss GI source, however may also be viral- - MRSA swab pending - Her surgical site has small open area however without surrounding erythema or drainage - Blood cultures x2 pending LINES/IV ACCESS - ETT, OGT, Radial Art Line, RT IJ CVL, Stacy, LEFT SHOULDER IO - remove IO, continue others DVT PROPHYLAXIS - SCDS, Heparin 5000 units subq TID DISPO: ICU while intubated/sedated, requiring vasopressor agents, and high insulin requirements with severe acidosis. CODE: DNR in event of cardiac arrest- patient is already intubated and mechanically ventilated- OK for vasopressor/inoptropic medications at this time. I have personally spent 70 minutes of critical care time in the direct management of this patient. This is a life/limb threatening event. This includes time spent evaluating patient, direct bedside care, chart review, placing orders, interpretation of diagnostic studies, discussion with consultants, patient, and family members, as well as other required patient management activities. This time is exclusive of all separately billable procedures, and separate from and in addition to any other critical care service time. Thank you for allowing us to participate in the care of this patient. Please refer to my attending physician's documentation for any further recommendations. History of Present Illness Reason for Consultation: Acidosis, hypotension Requesting Physician: Omar Garces Attending Physician: Huber Gayle MD History of Present Illness Patient arrives with no family present and is intubated and sedated- all information in this HPI/Note is from discussion with providers as well as chart review and may be limited 63 YOF with past medical history of: Hypothyroidism, DKA, PAD, noted rectal mass on CT imaging, that appears to be pending colonoscopy evaluation, S/p Right femoral endarterectomy with complication of wound. Reports that patient was last known well approximately 72 hours ago. She was brought in via EMS today with noted hyperglycemia, and severe acidosis, requiring BVM in the field, she was intubated in the ER on arrival for mentation, she was also with poor IV access and CVL was also placed by the ER. She has currently received 4.2 Liters of crystalloid, 1 amp HCO3, insulin infusion and HCO3 infusion is pending. Patient remained hypotensive with ongoing volume resuscitation and was initiated on vasopressors following my evaluation in the ER. Patient is warm, she is with adequate pulses, has moved extremities and coughed against the ventilator. Will bring to the ICU for continued resuscitation for DKA/HHNK, evaluate for any toxin exposure, as well as evaluate for any infectious causes. Discussed case with Sister- Malini Sorenson- She reports that the patient has been dealing with nausea/vomiting and diarrhea for the past 3 or so days, she last spoke to her about 3 days ago, she reports that the patient did not want to eat or drink, and because of this, she was not taking her insulin. She does also note that she was supposed to have a colonoscopy on 08/29/24. Overall we discussed what Tania would want done in an emergency- as if her heart would stop. Malini - reports that she Tania and her have talked about this before and she would not want to be resuscitated in the event of cardiac arrest. She understands that she is intubated at this time and requiring mechanical ventilation. She understands the severity of Tania's illness and this may include . Malini wants us to do full support with hemodynamics and vasopressor agents as we are able. CODE: DNR Allergies Allergy/AdvReac Type Severity Reaction Status Date / Time tetanus toxoid, adsorbed AdvReac Intermediate SWELLING Verified 08/15/24 13:04 AT [facility] Home Medications Medication Instructions Recorded Confirmed Type blood sugar diagnostic (OneTouch 09/04/22 08/28/24 History Ultra Test strips) blood-glucose meter (OneTouch 09/04/22 08/28/24 History Ultra2 Meter) blood-glucose meter,continuous #1 ea 02/26/23 08/28/24 Rx (Dexcom G7 Equipment Specialist) pen needle, diabetic 32 gauge x #100 ea 02/26/23 08/28/24 Rx 5/16" (Comfort EZ Pen Edmond) ibuprofen 200 mg tablet (Advil) 600 mg (3 x 200 mg) PO QID PRN 08/30/23 08/28/24 Rx fever or pain #30 tabs insulin syringe-needle U-100 0.3 #300 ea 02/08/24 08/28/24 Rx mL 31 gauge x 5/16" (BD Insulin Syringe Ultra-Fine) blood-glucose sensor (Dexcom G7 #9 ea 02/14/24 08/28/24 Rx Sensor device) furosemide 40 mg tablet (Lasix) 40 mg PO QAM 06/03/24 08/28/24 History glucagon 3 mg/actuation nasal spray 3 mg intranasal ONCE PRN 06/03/24 08/28/24 History Hypoglycemia oxycodone-acetaminophen 5 mg-325 1 - 2 tab PO Q6H PRN pain #20 tabs 06/06/24 08/28/24 Rx mg tablet (Percocet) insulin glargine 100 unit/mL (3 15 unit (0.15 mL) subcut BID #30 mL 07/23/24 08/28/24 Rx mL) subcutaneous pen (Lantus Solostar U-100 Insulin) levothyroxine 100 mcg tablet 100 mcg PO QAM #90 tabs 07/23/24 08/28/24 Rx rosuvastatin 40 mg tablet 40 mg PO QAM 07/31/24 08/28/24 History insulin aspart U-100 100 unit/mL See Rx Instructions .Route .COMPLEX 08/28/24 08/28/24 History subcutaneous solution Patient History Medical History Post op infection is using a silver coated strip for surgical site infection from the femoral endarterectomy. following with Dr. Fitzgerald's office. Rectal mass found in CT end of June 2024 - reason for upcoming procedure Hx of hypotension (01/2024) Hx of fall (02/04/24) no major injuries Dental caries pt. reports decayed teeth, needs dentures, not loose Sleep-disordered breathing denies sleep study- sister told pt. 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 dickerson - states his PA did not hear a cardiac murmur (05/14/24) Sensory neuropathy feet 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) hx-right foot Lower extremity edema hx - swelling has been much better since starting lasix Shoulder pain left, r/t arthritis Peripheral arterial disease Hx of angiography 06/2023, [facility], bilateral and abdominal aortogram Hyperlipidemia Hypothyroidism Surgical History History of endarterectomy (05/2024) right femoral endarterectomy History of cholecystectomy (1988) during hyster History of appendectomy (1988) during hyster History of tooth extraction History of cataract surgery (02/2024) rt/left History of partial amputation of toe of right foot (07/2023) pt. reports clipping toe nails and accidentally removing entire toe nail, which lead to infection History of carpal tunnel release (08/2023) left Hx of colonoscopy History of tonsillectomy and adenoidectomy (1972) initial sx age 2, revision age 12 Hx of total hysterectomy with removal of both tubes and ovaries at age 28, also removed gallbladder and appendix at same time Family History Mother Myocardial infarction Other No family history of adverse response to anesthesia Denies family history of Ovarian cancer Prostate cancer Breast cancer Colorectal cancer Social History Smoking Status: Never smoker Second Hand Exposure: Yes; Do You Dip or Chew Tobacco: No; Hx Alcohol Use: Yes Alcohol type: beer Alcohol Intake Frequency: Monthly or Less Hx Substance Use: No Preferred Language: Indonesian Communication Ability: intubated Visual Impairment: No Limitations Hearing Ability: Normal Sports Information Director Required: No Beliefs That Will Affect Care: None marital status: Single Current Living Situation: Family Current Living Situation Comment: lives with sister's family current occupational status: retired Other Information That Helps Us Care for You: No Feels Safe at Home: Yes Childhood Exposure to Second-Hand Smoke: Yes Diet: low carbohydrate caffeine: Yes during the past year weight has: remained stable Dental Care, Regularly: No Physical Activity Frequency: 5-6 Times per Week Seatbelt Use: always Sunscreen Use: No Assistive Devices: Glasses Review of Systems Review of Systems: unable to perform secondary to intubation and sedation as well as metabolic encephalopathy Physical Exam Physical Exam: PHYSICAL EXAM: General:intubated and sedated Head: Normocephalic, atraumatic ENT: PERRLA, mucous membranes dry Neuro: AAO x 0, normal babinski, + cough against ventilator, minimal withdrawl from pain Chest: equal rise and fall of the chest, no accessory muscle use, Clear to auscultation, Cardiac: Regular rate and rhythm, telemetry reviewed- NSR no ectopy, skin cool and dry, cap refill ~3 seconds, peripheral pusles +1, dusky juan c lbeds, no JVD, grade I systolic murmur, no edema GI: NABS x 4 quadrants, soft, : Stacy to gravity draining yellow malick urine Skin: no rash or erythema, no evidence of pressure injury from down time, right groin surgical site with small open area at top, no local erythema or drainage noted Results & Data Results & Data Vital Signs (Past 12 Hours) Vital Signs Temp Pulse Resp BP Pulse Ox O2 Del Method O2 Flow Rate 08/28/24 20:27 93 H 16 96 Mechanical Vent 08/28/24 19:00 84/52 L 08/28/24 19:00 84/52 L 08/28/24 18:59 101 H 29 H 100 08/28/24 18:57 35.6 C L 08/28/24 18:56 100 H 30 H 99 08/28/24 18:55 89/58 L 08/28/24 18:55 89/58 L 08/28/24 18:55 89/58 L 08/28/24 18:53 100 H 27 H 99 08/28/24 18:51 97/57 L 08/28/24 18:51 97/57 L 08/28/24 18:50 101 H 24 100 08/28/24 18:43 89/71 L 08/28/24 18:36 60/40 L 08/28/24 18:36 60/40 L 08/28/24 18:36 60/40 L 08/28/24 18:29 106 H 34 H 99 08/28/24 18:26 108 H 35 H 100 08/28/24 18:26 152/122 H 08/28/24 18:26 152/122 H 08/28/24 18:26 152/122 H 08/28/24 18:26 152/122 H 08/28/24 18:26 108 H 08/28/24 18:24 72/39 L 08/28/24 18:23 109 H 35 H 08/28/24 18:20 65/54 L 08/28/24 18:20 65/54 L 08/28/24 17:54 100 Ambu-Bag 15 08/28/24 17:54 35.6 C L 99 H 26 H 100 Ambu-Bag 15 Laboratory Results Abnormal lab results 08/28/24 08/28/24 08/28/24 Range/Units 18:37 18:49 19:32 WBC (4.8-10.8) K/ul RBC (4.20-5.40) M/uL Hgb (12.0-16.0) g/dl POC Hgb 10.9 L (12.0-16.0) g/dl POC Hct 36 L 36 L 32 L (37-47) % MCHC (32.0-36.0) g/dL RDW Std Deviation (36.4-46.3) fL Neut # (Auto) (1.40-6.50) K/uL [place] # (Auto) (0.11-0.59) K/uL Immature Gran # (Auto) (0.01-0.20) K/uL POC pH 6.93 L* 6.92 L* (7.35-7.45) POC pCO2 23 L 21 L (35-46) mmHg POC pO2 467 H (80-95) mmHg POC HCO3 5 L 4 L (19-24) opal/L POC Base Excess -28.0 L -28.0 L (-9-1.8) opal/L POC ABG O2 Sat 100.0 H 87.0 L (90-95) % VBG pH (7.36-7.41) VBG pCO2 (38-50) mmHg POC Sodium 126 L 128 L 130 L (135-144) mmol/L Sodium (136-145) mmol/L POC Potassium 6.4 H* 5.8 H 5.5 H (3.3-5.0) mmol/L Potassium (3.5-5.1) mmol/L Carbon Dioxide (21-32) mmol/L POC Total CO2 6 L* 5 L* < 5 L* (24-31) mmol/L Anion Gap (3-11) POC Anion Gap 27.0 H (16-25) mmol/L POC BUN 90 H (7-18) mg/dl BUN (6-23) mg/dl Creatinine (0.6-1.2) mg/dl POC Creatinine 3.1 H (0.6-1.3) mg/dl BUN/Creatinine Ratio (10-20) Glucose (70-99(Fasting)) mg/dl POC Glucose (other) > 700 H* (70-99) mg/dl Hemoglobin A1c (4.5-5.6) % Lactate (0.4-2.0) mmol/L Calcium (8.6-10.3) mg/dl POC Ioniz Calcium Aliya 0.93 L (1.12-1.32) mmol/l Total Protein (6.0-8.3) gm/dl Albumin (3.4-5.0) gm/dl Lipase (11-82) U/L Urine Appearance (Clear) Urine Protein (Negative) Urine Glucose (UA) (Negative) Urine Ketones (Negative) Urine Blood (Negative) U Hyaline Cast (Auto) (0-2) /lpf U Epithel Cells (Auto) (0-2) /hpf Amorphous Sediment (None Prsent) Granular Casts (None Prsent) /lpf 08/28/24 08/28/24 08/28/24 Range/Units 19:40 19:44 20:35 WBC 15.23 H (4.8-10.8) K/ul RBC 3.73 L (4.20-5.40) M/uL Hgb 11.2 L (12.0-16.0) g/dl POC Hgb 11.6 L (12.0-16.0) g/dl POC Hct 34 L (37-47) % MCHC 30.0 L (32.0-36.0) g/dL RDW Std Deviation 48.3 H (36.4-46.3) fL Neut # (Auto) 9.80 H (1.40-6.50) K/uL [place] # (Auto) 2.58 H (0.11-0.59) K/uL Immature Gran # (Auto) 1.44 H (0.01-0.20) K/uL POC pH (7.35-7.45) POC pCO2 (35-46) mmHg POC pO2 (80-95) mmHg POC HCO3 (19-24) opal/L POC Base Excess (-9-1.8) opal/L POC ABG O2 Sat (90-95) % VBG pH (7.36-7.41) VBG pCO2 (38-50) mmHg POC Sodium 131 L (135-144) mmol/L Sodium 133 L (136-145) mmol/L POC Potassium 5.4 H (3.3-5.0) mmol/L Potassium 5.5 H (3.5-5.1) mmol/L Carbon Dioxide 5 L* (21-32) mmol/L POC Total CO2 6 L* (24-31) mmol/L Anion Gap 30 H (3-11) POC Anion Gap 28.0 H (16-25) mmol/L POC BUN 93 H (7-18) mg/dl BUN 77 H (6-23) mg/dl Creatinine 3.11 H (0.6-1.2) mg/dl POC Creatinine 2.8 H (0.6-1.3) mg/dl BUN/Creatinine Ratio 24.8 H (10-20) Glucose 1262 H* (70-99(Fasting)) mg/dl POC Glucose (other) > 700 H* (70-99) mg/dl Hemoglobin A1c (4.5-5.6) % Lactate (0.4-2.0) mmol/L Calcium 7.0 L (8.6-10.3) mg/dl POC Ioniz Calcium Aliya 1.01 L (1.12-1.32) mmol/l Total Protein 4.9 L (6.0-8.3) gm/dl Albumin 2.8 L (3.4-5.0) gm/dl Lipase 9 L (11-82) U/L Urine Appearance Cloudy A (Clear) Urine Protein 1+ H (Negative) Urine Glucose (UA) 3+ H (Negative) Urine Ketones 2+ H (Negative) Urine Blood 1+ H (Negative) U Hyaline Cast (Auto) 11-20 H (0-2) /lpf U Epithel Cells (Auto) 3-5 H (0-2) /hpf Amorphous Sediment Present A (None Prsent) Granular Casts Present A (None Prsent) /lpf 08/28/24 Range/Units 20:39 WBC (4.8-10.8) K/ul RBC (4.20-5.40) M/uL Hgb (12.0-16.0) g/dl POC Hgb (12.0-16.0) g/dl POC Hct (37-47) % MCHC (32.0-36.0) g/dL RDW Std Deviation (36.4-46.3) fL Neut # (Auto) (1.40-6.50) K/uL [place] # (Auto) (0.11-0.59) K/uL Immature Gran # (Auto) (0.01-0.20) K/uL POC pH (7.35-7.45) POC pCO2 (35-46) mmHg POC pO2 (80-95) mmHg POC HCO3 (19-24) opal/L POC Base Excess (-9-1.8) opal/L POC ABG O2 Sat (90-95) % VBG pH < 7.00 L (7.36-7.41) VBG pCO2 24 L (38-50) mmHg POC Sodium (135-144) mmol/L Sodium (136-145) mmol/L POC Potassium (3.3-5.0) mmol/L Potassium (3.5-5.1) mmol/L Carbon Dioxide (21-32) mmol/L POC Total CO2 (24-31) mmol/L Anion Gap (3-11) POC Anion Gap (16-25) mmol/L POC BUN (7-18) mg/dl BUN (6-23) mg/dl Creatinine (0.6-1.2) mg/dl POC Creatinine (0.6-1.3) mg/dl BUN/Creatinine Ratio (10-20) Glucose (70-99(Fasting)) mg/dl POC Glucose (other) (70-99) mg/dl Hemoglobin A1c 8.7 H (4.5-5.6) % Lactate 4.4 H* (0.4-2.0) mmol/L Calcium (8.6-10.3) mg/dl POC Ioniz Calcium Aliya (1.12-1.32) mmol/l Total Protein (6.0-8.3) gm/dl Albumin (3.4-5.0) gm/dl Lipase (11-82) U/L Urine Appearance (Clear) Urine Protein (Negative) Urine Glucose (UA) (Negative) Urine Ketones (Negative) Urine Blood (Negative) U Hyaline Cast (Auto) (0-2) /lpf U Epithel Cells (Auto) (0-2) /hpf Amorphous Sediment (None Prsent) Granular Casts (None Prsent) /lpf Diagnostic Findings Chest X-Ray 08/28/24 18:31 EXAM: X-ray chest one-view portable CLINICAL HISTORY: Stroke alert PRIORS: 03/31/2024 TECHNIQUE: Frontal view chest FINDINGS: An endotracheal tube is present, terminating approximately 1.5 cm above the muna. Lung volumes are diminished. Heart size is normal. No pneumothorax. Osseous structures demonstrate no acute abnormality. No radiopaque foreign body. IMPRESSION: Endotracheal tube terminating 1.5 cm superior to the muna. Tube could be withdrawn approximately 3 cm or as appropriate. Electronically signed by Talisha Colvin 08-28-2024 7:[address] 08/28/24 18:31 Exam(s): CT HEAD Without Contrast EXAM: CT Head Without Intravenous Contrast CLINICAL HISTORY: Reason for exam: ams. TECHNIQUE: Axial computed tomography images of the head/brain without intravenous contrast. CTDI is 63.9 mGy and DLP is mGy-cm. Automated exposure control was utilized for the study. A dose lowering technique was utilized adhering to the principles of ALARA. COMPARISON: 02/23/24 FINDINGS: Brain: No intracranial hemorrhage. Senescent changes. No apparent acute cortical infarct. No midline shift. Ventricles: No hydrocephalus. Bones/joints: No acute fracture. Soft tissues: Unremarkable. Sinuses: Minimal sinus mucosal thickening. Mastoid air cells: No mastoid effusion. Orbits: Exophthalmos and bilateral cataract surgery. Endotracheal tube. IMPRESSION: No intracranial hemorrhage. Senescent changes. Electronically signed by: Agustin Waggoner M.D. 08/28/24 20:33 PM Chest X-Ray 08/28/24 19:29 Exam(s): XR CXR 1 VIEW EXAM: XR Chest, 1 View CLINICAL HISTORY: Reason for exam: line placement. TECHNIQUE: Frontal view of the chest. COMPARISON: No relevant prior studies available. FINDINGS: Lungs: Mild consolidative atelectasis in the left lung base. Reduced lung volumes. Pleural space: No pneumothorax. Mediastinum: Unremarkable. Bones/joints: Instrumentation related to the left humerus. Tubes, lines and devices: Endotracheal tube just above the orifice of the right mainstem bronchus. Right IJ central line near the junction of the right atrium and IVC. Upper abdomen: Cholecystectomy clips. IMPRESSION: 1. Endotracheal tube just above the orifice of the right mainstem bronchus. Reposition. 2. Right IJ central line near the junction of the right atrium and IVC. Electronically signed by: Agustin Waggoner M.D. 08/28/24 20:24 PM Medications Administered Fentanyl Citrate (Fentanyl Citrate) 2,500 mcg in 250 mls @ 2.5 mls/hr IV .Q96H KELLY; Protocol Stop: 09/11/24 18:44 Last Titration: 08/28/24 19:40 Dose: 50 mcg/hr, 5 mls/hr Documented By: Co-signed By: Admin: 08/28/24 18:58 Dose: 25 mcg/hr, 2.5 mls/hr Documented By: Co-signed By: AM Sodium Bicarbonate 150 meq/ (Sterile Water) 1,150 mls @ 200 mls/hr IV .Q5H45M KELLY Stop: 09/27/24 20:44 Last Admin: 08/28/24 21:11 Dose: 200 mls/hr Documented By: Sodium Chloride (Nss) 1,000 mls @ 999 mls/hr IV .Q1H1M ONE Stop: 08/28/24 21:36 Last Admin: 08/28/24 21:04 Dose: 999 mls/hr Documented By: Norepinephrine Bitartrate (Levophed/D5w) 4 mg in 250 mls @ 16.931 mls/hr IV .[id number] [facility]; Protocol Stop: 09/27/24 20:44 Last Admin: 08/28/24 20:58 Dose: 0.05 mcg/kg/min, 16.9 mls/hr Documented By: Co-signed By: RUBEN Discontinued Medications Fentanyl Citrate (Fentanyl Citrate Pf 100 Mcg/2 Ml Vial) Confirm Administered Dose 100 mcg .ROUTE .STK-MED ONE Stop: 08/28/24 19:49 Last Admin: 08/28/24 20:14 Dose: Not Given Documented By: Fentanyl Citrate (Fentanyl Citrate Pf 100 Mcg/2 Ml Vial) 100 mcg IV NOW STA Stop: 08/28/24 19:51 Last Admin: 08/28/24 20:03 Dose: 100 mcg Documented By: Sodium Chloride (Nss) 1,000 mls @ 999 mls/hr IV .Q1H1M KELLY Stop: 08/28/24 20:45 Last Infusion: 08/28/24 21:04 Dose: Infused Documented By: Admin: 08/28/24 19:45 Dose: 999 mls/hr Documented By: Infusion: 08/28/24 19:45 Dose: Infused Documented By: Admin: 08/28/24 19:42 Dose: 999 mls/hr Documented By: Miscellaneous (Rapid Sequence Induction Bag) Confirm Administered Dose 1 each N/A .STK-MED ONE Stop: 08/28/24 18:02 Last Admin: 08/28/24 19:33 Dose: 1 each Documented By: Miscellaneous (Stat Iv Infusion Titration Per Protocol) 1 each N/A NOW STA Stop: 08/28/24 18:43 Last Admin: 08/28/24 19:33 Dose: 1 each Documented By: Ondansetron HCl (Ondansetron Inj 2 Mg/Ml 2 Ml Vial) Confirm Administered Dose 4 mg .ROUTE .v2tel-Voxli ONE Stop: 08/28/24 18:29 Last Admin: 08/28/24 18:30 Dose: 4 mg Documented By: Propofol (Propofol Iv Emulsion 10 Mg/Ml 100 Ml Vial) Confirm Administered Dose 1,000 mg IV .Simple Admit ONE Stop: 08/28/24 18:40 Last Admin: 08/28/24 19:33 Dose: Not Given Documented By: Sodium Bicarbonate (Sodium Bicarb 8.4% Inj 50 Meq/50 Ml Syr) Confirm Administered Dose 50 meq IV .Simple Admit ONE Stop: 08/28/24 20:45 Last Admin: 08/28/24 20:48 Dose: 50 meq Documented By: ECG Additional Comments: Normal sinus rhythm Low voltage QRS Nonspecific ST abnormality Prolonged QT Abnormal ECG When compared with ECG 19:46, QRS axisShifted right Coding Level of Care Code 33806 CRITICAL CARE 1ST 30-74M Diagnoses DKA (diabetic ketoacidosis) E11.10 Metabolic acidosis E87.20 Shock R57.9 Encephalopathy G93.40 ARF (acute renal failure) N17.9 Peripheral arterial disease I73.9 Diabetes mellitus type 1 with complications E10.8 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
[2024-08-28 21:29] LABS: Albumin Globulin Ratio 1.3 (0.9-2); Albumin Level 2.8 gm/dl (3.4-5.0); BUN Creatinine Ratio 24.9 (10-20); Bilirubin,Total 0.5 mg/dl (0.2-1.0); Creatinine Clr Calc Pharmacy 21.5 ml/min; Globulin 2.1 gm/dl (2.5-4.0); Magnesium 2.5 mg/dl (1.7-2.4); Phosphorus 8.5 mg/dl (2.5-4.9); Potassium 5.7 mmol/L (3.5-5.1); Total Protein 4.9 gm/dl (6.0-8.3)
[2024-08-28 21:29] LABS: Amphetamines+Metham, Urine Neg (Neg); Barbiturates, Urine Neg (Neg); Benzodiazepine, Urine Neg (Neg); Cocaine, Urine Neg (Neg); Fentanyl, Urine Neg (Neg); MDMA (Ecstacy), Urine Neg (Neg); Marijuana, Urine Neg (Neg); Methadone, Urine Neg (Neg); Opiate, Urine Neg (Neg); Phencyclidine, Urine Neg (Neg)
[2024-08-28 21:31] LABS: Hematocrit (blood only) 38.2 % (37.0-47.0); Hemoglobin 11.7 g/dl (12.0-16.0); Mean Corpuscular Hemoglobin 30.4 pg (25.0-34.0); Mean Corpuscular Hgb Conc 30.6 g/dL (32.0-36.0); Mean Corpuscular Volume 99.2 fL (80.0-100.0); Mean Platelet Volume 11.1 fL (9.4-12.4); Platelet Count 256 K/uL (130-400); RDW Coefficient of Variation 13.2 % (11.5-14.5); RDW Standard Deviation 48.3 fL (36.4-46.3); Red Blood Count 3.85 M/uL (4.20-5.40); White Blood Count 15.68 K/ul (4.8-10.8)
[2024-08-28] MEDS: LACTATED RINGER'S 1,000 ML IV ONE (22:00)
[2024-08-28] MEDS ORDERED: ACETAMINOPHEN 1000 MG/100 ML IV IV PRN (22:10)
[2024-08-28] MEDS ORDERED: ONDANSETRON INJ 2 MG/ML 2 ML VIAL IV PRN (22:10)
[2024-08-28] MEDS ORDERED: ICU Protocol for HYPERglycemia SCH (22:10)
--- NOTE | 2024-08-28 22:27 | Emergency Department Note ---
History of Present Illness General Chief complaint: Unresponsive Time Seen by Provider: 08/28/24 18:30 Source: EMS History of Present Illness Provider complaint: Unresponsive high blood sugar 62-year-old female presents emergency department via EMS for unresponsiveness and high blood sugar. Per EMS the patient was last seen by her family 3 days ago. They stated they found the patient lying in her house in bed unresponsive. EMS reported that the patient's blood glucose was critical high. Home Medications Medication Instructions Recorded Confirmed Type blood sugar diagnostic (OneTouch 09/04/22 08/28/24 History Ultra Test strips) blood-glucose meter (OneTouch 09/04/22 08/28/24 History Ultra2 Meter) blood-glucose meter,continuous #1 ea 02/26/23 08/28/24 Rx (Dexcom G7 Program Manager) pen needle, diabetic 32 gauge x #100 ea 02/26/23 08/28/24 Rx 5/16" (Comfort EZ Pen [place]) ibuprofen 200 mg tablet (Advil) 600 mg (3 x 200 mg) PO QID PRN 08/30/23 08/28/24 Rx fever or pain #30 tabs insulin syringe-needle U-100 0.3 #300 ea 02/08/24 08/28/24 Rx mL 31 gauge x 5/16" (BD Insulin Syringe Ultra-Fine) blood-glucose sensor (Dexcom G7 #9 ea 02/14/24 08/28/24 Rx Sensor device) furosemide 40 mg tablet (Lasix) 40 mg PO QAM 06/03/24 08/28/24 History glucagon 3 mg/actuation nasal spray 3 mg intranasal ONCE PRN 06/03/24 08/28/24 History Hypoglycemia oxycodone-acetaminophen 5 mg-325 1 - 2 tab PO Q6H PRN pain #20 tabs 06/06/24 08/28/24 Rx mg tablet (Percocet) insulin glargine 100 unit/mL (3 15 unit (0.15 mL) subcut BID #30 mL 07/23/24 08/28/24 Rx mL) subcutaneous pen (Lantus Solostar U-100 Insulin) levothyroxine 100 mcg tablet 100 mcg PO QAM #90 tabs 07/23/24 08/28/24 Rx rosuvastatin 40 mg tablet 40 mg PO QAM 07/31/24 08/28/24 History insulin aspart U-100 100 unit/mL See Rx Instructions .Route .COMPLEX 08/28/24 08/28/24 History subcutaneous solution Allergies Allergy/AdvReac Type Severity Reaction Status Date / Time tetanus toxoid, adsorbed AdvReac Intermediate SWELLING Verified 08/15/24 13:04 AT SITE AND REDNESS Past Med/Surg History Problem List (Updated 08/28/24 @ 23:02 by Omar Garces MD) DKA (diabetic ketoacidosis) (Acute) ARF (acute renal failure) Encephalopathy Shock Metabolic acidosis DKA (diabetic ketoacidosis) Mass in rectum S/P vascular surgery Heart murmur Swelling of lower extremity LIDIA (acute kidney injury) 02/04/24 Elevated creatine kinase 02/04/24 Fall 02/04/24 Weakness 02/04/24 Hypotension (Acute) 02/04/24 Cubital tunnel syndrome Carpal tunnel syndrome History of partial amputation of toe of right foot Elevated blood pressure reading 08/21/23 Peripheral arterial disease (Acute) Stenosis of right femoral artery Hypokalemia (Acute) 04/25/23 Diabetic foot ulcer with osteomyelitis hx-surgery to remove Foot pain 04/25/23 Diabetic infection of right foot (Acute) 04/25/23 Loss of protective sensation of skin of foot Lower extremity edema 02/26/23 Hyperglycemia due to type 1 diabetes mellitus 01/30/23 Nausea & vomiting (Acute) 01/30/23 Elevated troponin (Acute) 01/30/23 Dyslipidemia 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 following with Dr. Fitzgerald's office. Rectal mass found in CT end of June 2024 - reason for upcoming procedure Hx of hypotension (01/2024) Hx of fall (02/04/24) no major injuries Dental caries pt. reports decayed teeth, needs dentures, not loose Sleep-disordered breathing denies sleep study- sister told pt. 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 dickerson - states his PA did not hear a cardiac murmur (05/14/24) Sensory neuropathy feet 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) hx-right foot Lower extremity edema hx - swelling has been much better since starting lasix Shoulder pain left, r/t arthritis Peripheral arterial disease Hx of angiography 06/2023, [facility], bilateral and abdominal aortogram Hyperlipidemia Hypothyroidism Surgical History History of endarterectomy (05/2024) right femoral endarterectomy History of cholecystectomy (1988) during hyster History of appendectomy (1988) during hyster History of tooth extraction History of cataract surgery (02/2024) rt/left History of partial amputation of toe of right foot (07/2023) pt. reports clipping toe nails and accidentally removing entire toe nail, which lead to infection History of carpal tunnel release (08/2023) left Hx of colonoscopy History of tonsillectomy and adenoidectomy (1972) initial sx age 2, revision age 12 Hx of total hysterectomy with removal of both tubes and ovaries at age 28, also removed gallbladder and appendix at same time Family History Mother Myocardial infarction Other No family history of adverse response to anesthesia Denies family history of Ovarian cancer Prostate cancer Breast cancer Colorectal cancer Social History Smoking Status: Unknown if ever smoked Second Hand Exposure: Yes (parents smoked, sister smokes currently); Do You Dip or Chew Tobacco: No; Hx Alcohol Use: Yes Alcohol type: beer Alcohol Intake Frequency: Monthly or Less Hx Substance Use: No Preferred Language: Czech Communication Ability: Effective Visual Impairment: No Limitations Hearing Ability: Normal Principal Statistical Programmer Required: No Beliefs That Will Affect Care: None marital status: Single Current Living Situation: Family Current Living Situation Comment: sister's family current occupational status: retired Feels Safe at Home: Yes Childhood Exposure to Second-Hand Smoke: Yes Diet: low carbohydrate caffeine: Yes during the past year weight has: remained stable Dental Care, Regularly: No Physical Activity Frequency: 5-6 Times per Week Seatbelt Use: always Sunscreen Use: No Assistive Devices: Glasses Physical Exam Vital Signs Vital Signs - 24 hr 08/28/24 17:54 08/28/24 17:54 08/28/24 18:20 Temperature 35.6 C L Temperature Source Rectal Pulse Rate 99 H Pulse Rate from SpO2 Sensor Respiratory Rate 26 H Respiratory Effort / Characteristics Labored Respiratory Depth Shallow Blood Pressure 65/54 L Blood Pressure Mean 57 Pulse Oximetry 100 100 Oxygen Delivery Method Ambu-Bag Ambu-Bag Oxygen Flow Rate 15 15 Fraction of Inspired Oxygen Sepsis New/Unexplained Change in Mental Status Yes Sepsis Action Taken by Nursing Physician Notified End-Tidal CO2 08/28/24 18:20 08/28/24 18:23 08/28/24 18:24 Temperature Temperature Source Pulse Rate 109 H Pulse Rate from SpO2 Sensor Respiratory Rate 35 H Respiratory Effort / Characteristics Respiratory Depth Blood Pressure 65/54 L 72/39 L Blood Pressure Mean 57 45 Pulse Oximetry Oxygen Delivery Method Oxygen Flow Rate Fraction of Inspired Oxygen Sepsis New/Unexplained Change in Mental Status Sepsis Action Taken by Nursing End-Tidal CO2 08/28/24 18:26 08/28/24 18:26 08/28/24 18:26 Temperature Temperature Source Pulse Rate 108 H Pulse Rate from SpO2 Sensor Respiratory Rate Respiratory Effort / Characteristics Respiratory Depth Blood Pressure 152/122 H 152/122 H Blood Pressure Mean 127 127 Pulse Oximetry Oxygen Delivery Method Oxygen Flow Rate Fraction of Inspired Oxygen Sepsis New/Unexplained Change in Mental Status Sepsis Action Taken by Nursing End-Tidal CO2 08/28/24 18:26 08/28/24 18:26 08/28/24 18:26 Temperature Temperature Source Pulse Rate 108 H Pulse Rate from SpO2 Sensor 107 H Respiratory Rate 35 H Respiratory Effort / Characteristics Respiratory Depth Blood Pressure 152/122 H 152/122 H Blood Pressure Mean 127 127 Pulse Oximetry 100 Oxygen Delivery Method Oxygen Flow Rate Fraction of Inspired Oxygen Sepsis New/Unexplained Change in Mental Status Sepsis Action Taken by Nursing End-Tidal CO2 08/28/24 18:29 08/28/24 18:36 08/28/24 18:36 Temperature Temperature Source Pulse Rate 106 H Pulse Rate from SpO2 Sensor 106 H Respiratory Rate 34 H Respiratory Effort / Characteristics Respiratory Depth Blood Pressure 60/40 L 60/40 L Blood Pressure Mean 41 41 Pulse Oximetry 99 Oxygen Delivery Method Oxygen Flow Rate Fraction of Inspired Oxygen Sepsis New/Unexplained Change in Mental Status Sepsis Action Taken by Nursing End-Tidal CO2 08/28/24 18:36 08/28/24 18:43 08/28/24 18:50 Temperature Temperature Source Pulse Rate 101 H Pulse Rate from SpO2 Sensor 98 H Respiratory Rate 24 Respiratory Effort / Characteristics Respiratory Depth Blood Pressure 60/40 L 89/71 L Blood Pressure Mean 41 75 Pulse Oximetry 100 Oxygen Delivery Method Oxygen Flow Rate Fraction of Inspired Oxygen Sepsis New/Unexplained Change in Mental Status Sepsis Action Taken by Nursing End-Tidal CO2 08/28/24 18:51 08/28/24 18:51 08/28/24 18:53 Temperature Temperature Source Pulse Rate 100 H Pulse Rate from SpO2 Sensor 100 H Respiratory Rate 27 H Respiratory Effort / Characteristics Respiratory Depth Blood Pressure 97/57 L 97/57 L Blood Pressure Mean 65 65 Pulse Oximetry 99 Oxygen Delivery Method Oxygen Flow Rate Fraction of Inspired Oxygen Sepsis New/Unexplained Change in Mental Status Sepsis Action Taken by [facility] End-Tidal CO2 08/28/24 18:55 08/28/24 18:55 08/28/24 18:55 Temperature Temperature Source Pulse Rate Pulse Rate from SpO2 Sensor Respiratory Rate Respiratory Effort / Characteristics Respiratory Depth Blood Pressure 89/58 L 89/58 L 89/58 L Blood Pressure Mean 62 62 62 Pulse Oximetry Oxygen Delivery Method Oxygen Flow Rate Fraction of Inspired Oxygen Sepsis New/Unexplained Change in Mental Status Sepsis Action Taken by [facility] End-Tidal CO2 08/28/24 18:56 08/28/24 18:57 08/28/24 18:59 Temperature 35.6 C L Temperature Source Rectal Pulse Rate 100 H 101 H Pulse Rate from SpO2 Sensor 101 H 101 H Respiratory Rate 30 H 29 H Respiratory Effort / Characteristics Respiratory Depth Blood Pressure Blood Pressure Mean Pulse Oximetry 99 100 Oxygen Delivery Method Oxygen Flow Rate Fraction of Inspired Oxygen Sepsis New/Unexplained Change in Mental Status Sepsis Action Taken by [facility] End-Tidal CO2 08/28/24 19:00 08/28/24 19:00 08/28/24 19:05 Temperature Temperature Source Pulse Rate Pulse Rate from SpO2 Sensor Respiratory Rate Respiratory Effort / Characteristics Respiratory Depth Blood Pressure 84/52 L 84/52 L 101/50 L Blood Pressure Mean 69 69 61 Pulse Oximetry Oxygen Delivery Method Oxygen Flow Rate Fraction of Inspired Oxygen Sepsis New/Unexplained Change in Mental Status Sepsis Action Taken by [facility] End-Tidal CO2 08/28/24 19:10 08/28/24 19:16 08/28/24 19:21 Temperature Temperature Source Pulse Rate Pulse Rate from SpO2 Sensor Respiratory Rate Respiratory Effort / Characteristics Respiratory Depth Blood Pressure 77/57 L 85/47 L 84/49 L Blood Pressure Mean 69 56 56 Pulse Oximetry Oxygen Delivery Method Oxygen Flow Rate Fraction of Inspired Oxygen Sepsis New/Unexplained Change in Mental Status Sepsis Action Taken by [facility] End-Tidal CO2 08/28/24 19:23 08/28/24 19:25 08/28/24 19:26 Temperature Temperature Source Pulse Rate 98 H 97 H Pulse Rate from SpO2 Sensor 99 H 98 H Respiratory Rate 27 H 28 H Respiratory Effort / Characteristics Respiratory Depth Blood Pressure 75/49 L Blood Pressure Mean 57 Pulse Oximetry 100 99 Oxygen Delivery Method Mechanical Vent Mechanical Vent Oxygen Flow Rate Fraction of Inspired Oxygen Sepsis New/Unexplained Change in Mental Status Sepsis Action Taken by [facility] End-Tidal CO2 08/28/24 19:29 08/28/24 19:31 08/28/24 19:32 Temperature Temperature Source Pulse Rate 97 H 97 H Pulse Rate from SpO2 Sensor 98 H 97 H Respiratory Rate 26 H 27 H Respiratory Effort / Characteristics Respiratory Depth Blood Pressure 91/40 L Blood Pressure Mean 68 Pulse Oximetry 98 98 Oxygen Delivery Method Mechanical Vent Mechanical Vent Oxygen Flow Rate Fraction of Inspired Oxygen Sepsis New/Unexplained Change in Mental Status Sepsis Action Taken by [facility] End-Tidal CO2 08/28/24 19:35 08/28/24 19:35 08/28/24 19:36 Temperature Temperature Source Pulse Rate 96 H 101 H Pulse Rate from SpO2 Sensor 97 H Respiratory Rate 25 H 22 Respiratory Effort / Characteristics Respiratory Depth Blood Pressure 82/71 L Blood Pressure Mean 79 Pulse Oximetry 99 100 Oxygen Delivery Method Oxygen Flow Rate Fraction of Inspired Oxygen 100 Sepsis New/Unexplained Change in Mental Status Sepsis Action Taken by [facility] End-Tidal CO2 08/28/24 19:40 08/28/24 19:44 08/28/24 19:45 Temperature Temperature Source Pulse Rate 95 H Pulse Rate from SpO2 Sensor 96 H Respiratory Rate 29 H Respiratory Effort / Characteristics Respiratory Depth Blood Pressure 84/48 L 80/47 L Blood Pressure Mean 65 61 Pulse Oximetry 97 Oxygen Delivery Method Mechanical Vent Oxygen Flow Rate Fraction of Inspired Oxygen Sepsis New/Unexplained Change in Mental Status Sepsis Action Taken by [facility] End-Tidal CO2 08/28/24 19:50 08/28/24 19:50 08/28/24 19:55 Temperature Temperature Source Pulse Rate 94 H Pulse Rate from SpO2 Sensor 95 H Respiratory Rate 29 H Respiratory Effort / Characteristics Respiratory Depth Blood Pressure 76/48 L 81/49 L Blood Pressure Mean 51 59 Pulse Oximetry 99 Oxygen Delivery Method Mechanical Vent Oxygen Flow Rate Fraction of Inspired Oxygen Sepsis New/Unexplained Change in Mental Status Sepsis Action Taken by Nursing End-Tidal CO2 08/28/24 20:15 08/28/24 20:20 08/28/24 20:20 Temperature Temperature Source Pulse Rate 93 H Pulse Rate from SpO2 Sensor 95 H Respiratory Rate 19 Respiratory Effort / Characteristics Respiratory Depth Blood Pressure 73/41 L 77/45 L Blood Pressure Mean 53 58 Pulse Oximetry 96 Oxygen Delivery Method Mechanical Vent Oxygen Flow Rate Fraction of Inspired Oxygen Sepsis New/Unexplained Change in Mental Status Sepsis Action Taken by Nursing End-Tidal CO2 08/28/24 20:23 08/28/24 20:25 08/28/24 20:26 Temperature Temperature Source Pulse Rate 93 H 93 H Pulse Rate from SpO2 Sensor 93 H 95 H Respiratory Rate 20 19 Respiratory Effort / Characteristics Respiratory Depth Blood Pressure 77/45 L Blood Pressure Mean 54 Pulse Oximetry 93 96 Oxygen Delivery Method Mechanical Vent Mechanical Vent Oxygen Flow Rate Fraction of Inspired Oxygen Sepsis New/Unexplained Change in Mental Status Sepsis Action Taken by Nursing End-Tidal CO2 15 14 08/28/24 20:27 08/28/24 20:30 08/28/24 20:35 Temperature Temperature Source Pulse Rate 93 H Pulse Rate from SpO2 Sensor Respiratory Rate 16 Respiratory Effort / Characteristics Respiratory Depth Blood Pressure 82/43 L 75/46 L Blood Pressure Mean 58 57 Pulse Oximetry 96 Oxygen Delivery Method Mechanical Vent Oxygen Flow Rate Fraction of Inspired Oxygen Sepsis New/Unexplained Change in Mental Status Sepsis Action Taken by Nursing End-Tidal CO2 08/28/24 20:38 08/28/24 20:40 Temperature Temperature Source Pulse Rate 93 H Pulse Rate from SpO2 Sensor 94 H Respiratory Rate 21 Respiratory Effort / Characteristics Respiratory Depth Blood Pressure 65/41 L Blood Pressure Mean 54 Pulse Oximetry 96 Oxygen Delivery Method Mechanical Vent Oxygen Flow Rate Fraction of Inspired Oxygen Sepsis New/Unexplained Change in Mental Status Sepsis Action Taken by Nursing End-Tidal CO2 14 Physical Exam GENERAL: Ill-appearing and smells of acetone. HENT: Exam performed. -Head: Normocephalic and atraumatic. -Mouth/Throat: Dry mucous membranes. EYES: Pupils are equal, round, and reactive to light. NECK: Normal range of motion. Neck supple. No JVD present. CV: Tachycardic rate, regular rhythm, normal heart sounds and intact distal pulses. There is no peripheral edema. Palpable radial pulses bue. PULM/CHEST: Diminished breath sounds bilaterally. ABD: The abdomen is soft and obese. NEURO: GCS eye subscore is 1. GCS verbal subscore is 2. GCS motor subscore is 4. MUSC: IO in the patient's left shoulder placed by EMS. SKIN: Scar over the patient's right groin Procedures Central Line Placement Right IJ: Time Out Performed: Yes Patient Placed on Monitor/Pulse Ox: Yes MD Prep: mask, gown and gloves Central Line Prep: Chlorhexidine scrub and sterile drapes applied Ultrasound Used for Placement: Yes Central Line Lumen Inserted: triple Post Procedure: sutured in place, good blood return, all ports aspirated, flushed, capped and sterile dressing applied Post Procedure X-Ray: tip of catheter in good position and no pneumothorax seen Patient Tolerated Procedure: well Complications: none Intubation Time out performed: Yes sedative: Etomidate Mg Given: 30 paralytic: Succinylcholine Mg Given: 135 Laryngoscope: other (glidescope) ET Tube Size: 7.5 ET Tube Uncuffed: Yes Tube Placement Confirmation: visualized tube passing through cords, equal breath sounds bilaterally, no breath sounds over epigastrium and confirmation by capnometry Patient Tolerated Procedure: well Intubation Complications: none Course Course 183: The patient was evaluated in room B1. A complete history and physical exam was performed Cardiac monitoring: An order was placed for continuous cardiac monitoring. The monitor shows a rate of 100 with sinus rhythm interpreted by me Patient has low GCS. Will intubate. 1200 cc of normal saline given by EMS. 1850: Patient intubated. See procedure note. POC ABG showed a pH of 6.93 CO2 23 pO2 467 bicarb of 5. Patient hypotensive. 2 L normal saline bolus was given through the patient's IO. Fentanyl drip will be started for sedation on the patient given the patient's hypotension. 1936: Patient was a very difficult IV stick and were unable to initially get labs. Central line was placed. Initially attempted to place a line in the patient's left femoral but was unable to sit placed on the right IJ. See procedure note. Labs were obtained from the central line and the [id number] VBG from central line showed a pH of 6.92 with a CO2 of 20.7 oxygen of 85 bicarb of 4.3 oxygen saturation 87%. I-STAT from that line showed a sodium 131 potassium 5.4 bicarb of 6 glucose greater than 700 creatinine of 2.8. Will take the patient to CT to rule out ICH. 2009: CT of the head viewed by me shows no ICH. Will contact ICU and get the patient admitted to the hospitalist team. 2030: Patient remains hypotensive. Fourth liter of IV fluids will be ordered for the patient. Discussed the case with ICU Brozovich QUALITY CONTROL OPERATOR for Dr. Perez. Will start insulin drip without bolus. After discussing with ICU team they recommended starting bicarb drip in sterile water which we will also start. 2100: Patient remains hypotensive. ICU team at bedside. Will start Levophed. Administered Medications Fentanyl Citrate (Fentanyl Citrate) 2,500 mcg in 250 mls @ 2.5 mls/hr IV .Q96H [facility]; Protocol Stop: 09/11/24 18:44 Last Titration: 08/28/24 19:40 Dose: 50 mcg/hr, 5 mls/hr Documented By: Co-signed By: Admin: 08/28/24 18:58 Dose: 25 mcg/hr, 2.5 mls/hr Documented By: Co-signed By: AM Insulin Human Regular 250 (units/ Sodium Chloride) 250 mls @ 9 mls/hr IV .Q24H [facility]; Protocol Stop: 09/27/24 20:29 Last Admin: 08/28/24 21:14 Dose: 9 units/hr, 9 mls/hr Documented By: Co-signed By: RUBEN Sodium Bicarbonate 150 meq/ (Sterile Water) 1,150 mls @ 200 mls/hr IV .Q5H45M [facility] Stop: 09/27/24 20:44 Last Admin: 08/28/24 21:11 Dose: 200 mls/hr Documented By: Norepinephrine Bitartrate (Levophed/D5w) 4 mg in 250 mls @ 16.931 mls/hr IV .[id number] [facility]; Protocol Stop: 09/27/24 20:44 Last Admin: 08/28/24 20:58 Dose: 0.05 mcg/kg/min, 16.9 mls/hr Documented By: Co-signed By: RUBEN Discontinued Medications Fentanyl Citrate (Fentanyl Citrate Pf 100 Mcg/2 Ml Vial) Confirm Administered Dose 100 mcg .ROUTE .STK-MED ONE Stop: 08/28/24 19:49 Last Admin: 08/28/24 20:14 Dose: Not Given Documented By: Fentanyl Citrate (Fentanyl Citrate Pf 100 Mcg/2 Ml Vial) 100 mcg IV NOW STA Stop: 08/28/24 19:51 Last Admin: 08/28/24 20:03 Dose: 100 mcg Documented By: Sodium Chloride (Nss) 1,000 mls @ 999 mls/hr IV .Q1H1M KELLY Stop: 08/28/24 20:45 Last Infusion: 08/28/24 21:04 Dose: Infused Documented By: Admin: 08/28/24 19:45 Dose: 999 mls/hr Documented By: Infusion: 08/28/24 19:45 Dose: Infused Documented By: Admin: 08/28/24 19:42 Dose: 999 mls/hr Documented By: Sodium Chloride (Nss) 1,000 mls @ 999 mls/hr IV .Q1H1M ONE Stop: 08/28/24 21:36 Last Infusion: 08/28/24 22:05 Dose: Infused Documented By: Admin: 08/28/24 21:04 Dose: 999 mls/hr Documented By: Miscellaneous (Rapid Sequence Induction Bag) Confirm Administered Dose 1 each N/A .STK-MED ONE Stop: 08/28/24 18:02 Last Admin: 08/28/24 19:33 Dose: 1 each Documented By: JR Drew (Stat Iv Infusion Titration Per Protocol) 1 each N/A NOW STA Stop: 08/28/24 18:43 Last Admin: 08/28/24 19:33 Dose: 1 each Documented By: Ondansetron HCl (Ondansetron Inj 2 Mg/Ml 2 Ml Vial) Confirm Administered Dose 4 mg .ROUTE .STK-MED ONE Stop: 08/28/24 18:29 Last Admin: 08/28/24 18:30 Dose: 4 mg Documented By: Propofol (Propofol Iv Emulsion 10 Mg/Ml 100 Ml Vial) Confirm Administered Dose 1,000 mg IV .STK-MED ONE Stop: 08/28/24 18:40 Last Admin: 08/28/24 19:33 Dose: Not Given Documented By: Sodium Bicarbonate (Sodium Bicarb 8.4% Inj 50 Meq/50 Ml Syr) Confirm Administered Dose 50 meq IV .STK-MED ONE Stop: 08/28/24 20:45 Last Admin: 08/28/24 20:48 Dose: 50 meq Documented By: Critical Care Time Critical Care Time: Yes Total Critical Care Time: 110 I have personally spent greater than 110 minutes of critical care time in the direct management of this patient. This includes bedside care, interpretation of diagnostic studies, and testing, discussion with consultants, patient, and family members, and other required patient management activities. This 110 minutes is in excess of all separately billable procedures. Medical Decision Making Laboratory Data Attestation: I reviewed the patient's lab results. 08/28/24 20:39 08/28/24 20:39 Lab Results 08/28/24 08/28/24 08/28/24 Range/Units 18:37 18:49 19:32 WBC (4.8-10.8) K/ul RBC (4.20-5.40) M/uL Hgb (12.0-16.0) g/dl POC Hgb 12.2 12.2 10.9 L (12.0-16.0) g/dl Hct (37.0-47.0) % POC Hct 36 L 36 L 32 L (37-47) % MCV (80.0-100.0) fL MCH (25.0-34.0) pg MCHC (32.0-36.0) g/dL RDW Std Deviation (36.4-46.3) fL RDW Coeff of Tressa (11.5-14.5) % Plt Count (130-400) K/uL MPV (9.4-12.4) fL Immature Gran % (Auto) % Neut % (Auto) % Lymph % (Auto) % Atkinson % (Auto) % Eos % (Auto) % Baso % (Auto) % Neut # (Auto) (1.40-6.50) K/uL Lymph # (Auto) (1.20-3.40) K/uL Atkinson # (Auto) (0.11-0.59) K/uL Eos # (Auto) (0.00-0.50) K/uL Baso # (Auto) (0.00-0.20) K/uL Immature Gran # (Auto) (0.01-0.20) K/uL Toxic Vacuolation Polychromasia Echinocytes PT (9.0-12.0) Seconds INR (0.9-1.1) APTT (21-31) Seconds PTT Ratio POC pH 6.93 L* 6.92 L* (7.35-7.45) POC pCO2 23 L 21 L (35-46) mmHg POC pO2 467 H 85 (80-95) mmHg POC HCO3 5 L 4 L (19-24) opal/L POC Base Excess -28.0 L -28.0 L (-9-1.8) opal/L POC ABG O2 Sat 100.0 H 87.0 L (90-95) % VBG pH (7.36-7.41) VBG pCO2 (38-50) mmHg VBG pO2 mmHg VBG HCO3 VBG O2 Saturation % VBG Base Excess POC Sodium 126 L 128 L 130 L (135-144) mmol/L Sodium (136-145) mmol/L POC Potassium 6.4 H* 5.8 H 5.5 H (3.3-5.0) mmol/L Potassium (3.5-5.1) mmol/L POC Chloride 101 (101-112) mmol/L Chloride (98-107) mmol/L Carbon Dioxide (21-32) mmol/L POC Total CO2 6 L* 5 L* < 5 L* (24-31) mmol/L Anion Gap (3-11) POC Anion Gap 27.0 H (16-25) mmol/L POC BUN 90 H (7-18) mg/dl BUN (6-23) mg/dl Creatinine (0.6-1.2) mg/dl POC Creatinine 3.1 H (0.6-1.3) mg/dl Est Cr Clr Drug Dosing ml/min eGFR BUN/Creatinine Ratio (10-20) Glucose (70-99(Fasting)) mg/dl POC Glucose (other) > 700 H* (70-99) mg/dl Estimat Average Glucose mg/dl Hemoglobin A1c (4.5-5.6) % Osmolality (280-300) mOsm/kg Lactate (0.4-2.0) mmol/L Calcium (8.6-10.3) mg/dl POC Ioniz Calcium Aliya 0.93 L (1.12-1.32) mmol/l Phosphorus (2.5-4.9) mg/dl Magnesium (1.7-2.4) mg/dl Total Bilirubin (0.2-1.0) mg/dl Direct Bilirubin (0-0.2) mg/dl AST (13-39) U/L ALT (7-52) U/L Alkaline Phosphatase (34-104) U/L Total Protein (6.0-8.3) gm/dl Albumin (3.4-5.0) gm/dl Globulin (2.5-4.0) gm/dl Albumin/Globulin Ratio (0.9-2) Lipase (11-82) U/L Urine Color Urine Appearance (Clear) Urine pH (4.5-7.5) Ur Specific [place] (1.000-1.030) Urine Protein (Negative) Urine Glucose (UA) (Negative) Urine Ketones (Negative) Urine Blood (Negative) Urine Nitrite (Negative) Urine Bilirubin (Negative) Urine Urobilinogen (Negative) Ur Leukocyte Esterase (Negative) Urine WBC (Auto) (0-5) /hpf Urine RBC (Auto) (0-2) /hpf U Hyaline Cast (Auto) (0-2) /lpf U Epithel Cells (Auto) (0-2) /hpf Urine Bacteria (Auto) (None Seen) Amorphous Sediment (None Prsent) Granular Casts (None Prsent) /lpf Urine Opiates Screen (Neg) Ur Methadone, Qual (Neg) Urine Fentanyl Screen (Neg) Urine Barbiturates (Neg) Ur Phencyclidine (PCP) (Neg) U Amphetamin/Meth Scrn (Neg) MDMA (Ecstasy) Screen (Neg) U Benzodiazepines Scrn (Neg) Ur Cocaine Metabolite (Neg) U Marijuana (THC) Screen (Neg) 08/28/24 08/28/24 08/28/24 Range/Units 19:40 19:44 20:35 WBC 15.23 H (4.8-10.8) K/ul RBC 3.73 L (4.20-5.40) M/uL Hgb 11.2 L (12.0-16.0) g/dl POC Hgb 11.6 L (12.0-16.0) g/dl Hct 37.3 (37.0-47.0) % POC Hct 34 L (37-47) % MCV 100.0 (80.0-100.0) fL MCH 30.0 (25.0-34.0) pg MCHC 30.0 L (32.0-36.0) g/dL RDW Std Deviation 48.3 H (36.4-46.3) fL RDW Coeff of Tressa 13.2 (11.5-14.5) % Plt Count 245 (130-400) K/uL MPV 10.9 (9.4-12.4) fL Immature Gran % (Auto) 9.5 % Neut % (Auto) 64.3 % Lymph % (Auto) 8.5 % Atkinson % (Auto) 16.9 % Eos % (Auto) 0.1 % Baso % (Auto) 0.7 % Neut # (Auto) 9.80 H (1.40-6.50) K/uL Lymph # (Auto) 1.29 (1.20-3.40) K/uL Atkinson # (Auto) 2.58 H (0.11-0.59) K/uL Eos # (Auto) 0.01 (0.00-0.50) K/uL Baso # (Auto) 0.11 (0.00-0.20) K/uL Immature Gran # (Auto) 1.44 H (0.01-0.20) K/uL Toxic Vacuolation 1+ Polychromasia 1+ Echinocytes 1+ PT 11.9 (9.0-12.0) Seconds INR 1.1 (0.9-1.1) APTT 31 (21-31) Seconds PTT Ratio 1.2 POC pH (7.35-7.45) POC pCO2 (35-46) mmHg POC pO2 (80-95) mmHg POC HCO3 (19-24) opal/L POC Base Excess (-9-1.8) opal/L POC ABG O2 Sat (90-95) % VBG pH (7.36-7.41) VBG pCO2 (38-50) mmHg VBG pO2 mmHg VBG HCO3 VBG O2 Saturation % VBG Base Excess POC Sodium 131 L (135-144) mmol/L Sodium 133 L (136-145) mmol/L POC Potassium 5.4 H (3.3-5.0) mmol/L Potassium 5.5 H (3.5-5.1) mmol/L POC Chloride 103 (101-112) mmol/L Chloride 98 (98-107) mmol/L Carbon Dioxide 5 L* (21-32) mmol/L POC Total CO2 6 L* (24-31) mmol/L Anion Gap 30 H (3-11) POC Anion Gap 28.0 H (16-25) mmol/L POC BUN 93 H (7-18) mg/dl BUN 77 H (6-23) mg/dl Creatinine 3.11 H (0.6-1.2) mg/dl POC Creatinine 2.8 H (0.6-1.3) mg/dl Est Cr Clr Drug Dosing 21.4 ml/min eGFR 16.22 BUN/Creatinine Ratio 24.8 H (10-20) Glucose 1262 H* (70-99(Fasting)) mg/dl POC Glucose (other) > 700 H* (70-99) mg/dl Estimat Average Glucose mg/dl Hemoglobin A1c (4.5-5.6) % Osmolality (280-300) mOsm/kg Lactate (0.4-2.0) mmol/L Calcium 7.0 L (8.6-10.3) mg/dl POC Ioniz Calcium Aliya 1.01 L (1.12-1.32) mmol/l Phosphorus (2.5-4.9) mg/dl Magnesium 2.4 (1.7-2.4) mg/dl Total Bilirubin 0.5 (0.2-1.0) mg/dl Direct Bilirubin 0.2 (0-0.2) mg/dl AST 17 (13-39) U/L ALT 7 (7-52) U/L Alkaline Phosphatase 61 (34-104) U/L Total Protein 4.9 L (6.0-8.3) gm/dl Albumin 2.8 L (3.4-5.0) gm/dl Globulin (2.5-4.0) gm/dl Albumin/Globulin Ratio (0.9-2) Lipase 9 L (11-82) U/L Urine Color Yellow Urine Appearance Cloudy A (Clear) Urine pH 5.0 (4.5-7.5) Ur Specific [place] 1.026 (1.000-1.030) Urine Protein 1+ H (Negative) Urine Glucose (UA) 3+ H (Negative) Urine Ketones 2+ H (Negative) Urine Blood 1+ H (Negative) Urine Nitrite Negative (Negative) Urine Bilirubin Negative (Negative) Urine Urobilinogen Negative (Negative) Ur Leukocyte Esterase Negative (Negative) Urine WBC (Auto) 0-5 (0-5) /hpf Urine RBC (Auto) 0-2 (0-2) /hpf U Hyaline Cast (Auto) 11-20 H (0-2) /lpf U Epithel Cells (Auto) 3-5 H (0-2) /hpf Urine Bacteria (Auto) None Seen (None Seen) Amorphous Sediment Present A (None Prsent) Granular Casts Present A (None Prsent) /lpf Urine Opiates Screen Neg (Neg) Ur Methadone, Qual Neg (Neg) Urine Fentanyl Screen Neg (Neg) Urine Barbiturates Neg (Neg) Ur Phencyclidine (PCP) Neg (Neg) U Amphetamin/Meth Scrn Neg (Neg) MDMA (Ecstasy) Screen Neg (Neg) U Benzodiazepines Scrn Neg (Neg) Ur Cocaine Metabolite Neg (Neg) U Marijuana (THC) Screen Neg (Neg) 08/28/24 Range/Units 20:39 WBC 15.68 H (4.8-10.8) K/ul RBC 3.85 L (4.20-5.40) M/uL Hgb 11.7 L (12.0-16.0) g/dl POC Hgb (12.0-16.0) g/dl Hct 38.2 (37.0-47.0) % POC Hct (37-47) % MCV 99.2 (80.0-100.0) fL MCH 30.4 (25.0-34.0) pg MCHC 30.6 L (32.0-36.0) g/dL RDW Std Deviation 48.3 H (36.4-46.3) fL RDW Coeff of Tressa 13.2 (11.5-14.5) % Plt Count 256 (130-400) K/uL MPV 11.1 (9.4-12.4) fL Immature Gran % (Auto) % Neut % (Auto) % Lymph % (Auto) % Atkinson % (Auto) % Eos % (Auto) % Baso % (Auto) % Neut # (Auto) (1.40-6.50) K/uL Lymph # (Auto) (1.20-3.40) K/uL Atkinson # (Auto) (0.11-0.59) K/uL Eos # (Auto) (0.00-0.50) K/uL Baso # (Auto) (0.00-0.20) K/uL Immature Gran # (Auto) (0.01-0.20) K/uL Toxic Vacuolation Polychromasia Echinocytes PT (9.0-12.0) Seconds INR (0.9-1.1) APTT (21-31) Seconds PTT Ratio POC pH (7.35-7.45) POC pCO2 (35-46) mmHg POC pO2 (80-95) mmHg POC HCO3 (19-24) opal/L POC Base Excess (-9-1.8) opal/L POC ABG O2 Sat (90-95) % VBG pH < 7.00 L (7.36-7.41) VBG pCO2 24 L (38-50) mmHg VBG pO2 43 mmHg VBG HCO3 TNP VBG O2 Saturation 72.4 % VBG Base Excess TNP POC Sodium (135-144) mmol/L Sodium 132 L (136-145) mmol/L POC Potassium (3.3-5.0) mmol/L Potassium 5.7 H (3.5-5.1) mmol/L POC Chloride (101-112) mmol/L Chloride 99 (98-107) mmol/L Carbon Dioxide 5 L* (21-32) mmol/L POC Total CO2 (24-31) mmol/L Anion Gap 28 H (3-11) POC Anion Gap (16-25) mmol/L POC BUN (7-18) mg/dl BUN 77 H (6-23) mg/dl Creatinine 3.09 H (0.6-1.2) mg/dl POC Creatinine (0.6-1.3) mg/dl Est Cr Clr Drug Dosing 21.5 ml/min eGFR 16.35 BUN/Creatinine Ratio 24.9 H (10-20) Glucose 1264 H* (70-99(Fasting)) mg/dl POC Glucose (other) (70-99) mg/dl Estimat Average Glucose 203 mg/dl Hemoglobin A1c 8.7 H (4.5-5.6) % Osmolality 390 H* (280-300) mOsm/kg Lactate 4.4 H* (0.4-2.0) mmol/L Calcium 7.0 L (8.6-10.3) mg/dl POC Ioniz Calcium Aliya (1.12-1.32) mmol/l Phosphorus 8.5 H (2.5-4.9) mg/dl Magnesium 2.5 H (1.7-2.4) mg/dl Total Bilirubin 0.5 (0.2-1.0) mg/dl Direct Bilirubin (0-0.2) mg/dl AST 21 (13-39) U/L ALT 8 (7-52) U/L Alkaline Phosphatase 63 (34-104) U/L Total Protein 4.9 L (6.0-8.3) gm/dl Albumin 2.8 L (3.4-5.0) gm/dl Globulin 2.1 L (2.5-4.0) gm/dl Albumin/Globulin Ratio 1.3 (0.9-2) Lipase (11-82) U/L Urine Color Urine Appearance (Clear) Urine pH (4.5-7.5) Ur Specific [place] (1.000-1.030) Urine Protein (Negative) Urine Glucose (UA) (Negative) Urine Ketones (Negative) Urine Blood (Negative) Urine Nitrite (Negative) Urine Bilirubin (Negative) Urine Urobilinogen (Negative) Ur Leukocyte Esterase (Negative) Urine WBC (Auto) (0-5) /hpf Urine RBC (Auto) (0-2) /hpf U Hyaline Cast (Auto) (0-2) /lpf U Epithel Cells (Auto) (0-2) /hpf Urine Bacteria (Auto) (None Seen) Amorphous Sediment (None Prsent) Granular Casts (None Prsent) /lpf Urine Opiates Screen (Neg) Ur Methadone, Qual (Neg) Urine Fentanyl Screen (Neg) Urine Barbiturates (Neg) Ur Phencyclidine (PCP) (Neg) U Amphetamin/Meth Scrn (Neg) MDMA (Ecstasy) Screen (Neg) U Benzodiazepines Scrn (Neg) Ur Cocaine Metabolite (Neg) U Marijuana (THC) Screen (Neg) Imaging Data Attestation: I personally reviewed and interpreted this imaging study as follows: My Impression: Chest x-ray #1: ET tube in place. No infiltrate no pneumothorax Chest x-ray #2: ET tube in place. Central line in place. No infiltrate no pneumothorax CT head: No ICH Radiologist's Impression: Chest X-Ray 08/28/24 18:31 EXAM: X-ray chest one-view portable CLINICAL HISTORY: Stroke alert PRIORS: 03/31/2024 TECHNIQUE: Frontal view chest FINDINGS: An endotracheal tube is present, terminating approximately 1.5 cm above the muna. Lung volumes are diminished. Heart size is normal. No pneumothorax. Osseous structures demonstrate no acute abnormality. No radiopaque foreign body. IMPRESSION: Endotracheal tube terminating 1.5 cm superior to the muna. Tube could be withdrawn approximately 3 cm or as appropriate. Electronically signed by Talisha Colvin 08-28-2024 7:[address] 08/28/24 18:31 Exam(s): CT HEAD Without Contrast EXAM: CT Head Without Intravenous Contrast CLINICAL HISTORY: Reason for exam: ams. TECHNIQUE: Axial computed tomography images of the head/brain without intravenous contrast. CTDI is 63.9 mGy and DLP is mGy-cm. Automated exposure control was utilized for the study. A dose lowering technique was utilized adhering to the principles of ALARA. COMPARISON: 02/23/24 FINDINGS: Brain: No intracranial hemorrhage. Senescent changes. No apparent acute cortical infarct. No midline shift. Ventricles: No hydrocephalus. Bones/joints: No acute fracture. Soft tissues: Unremarkable. Sinuses: Minimal sinus mucosal thickening. Mastoid air cells: No mastoid effusion. Orbits: Exophthalmos and bilateral cataract surgery. Endotracheal tube. IMPRESSION: No intracranial hemorrhage. Senescent changes. Electronically signed by: Agustin Waggoner M.D. 08/28/24 20:33 PM Chest X-Ray 08/28/24 19:29 Exam(s): XR CXR 1 VIEW EXAM: XR Chest, 1 View CLINICAL HISTORY: Reason for exam: line placement. TECHNIQUE: Frontal view of the chest. COMPARISON: No relevant prior studies available. FINDINGS: Lungs: Mild consolidative atelectasis in the left lung base. Reduced lung volumes. Pleural space: No pneumothorax. Mediastinum: Unremarkable. Bones/joints: Instrumentation related to the left humerus. Tubes, lines and devices: Endotracheal tube just above the orifice of the right mainstem bronchus. Right IJ central line near the junction of the right atrium and IVC. Upper abdomen: Cholecystectomy clips. IMPRESSION: 1. Endotracheal tube just above the orifice of the right mainstem bronchus. Reposition. 2. Right IJ central line near the junction of the right atrium and IVC. Electronically signed by: Agustin Waggoner M.D. 08/28/24 20:24 PM ECG Data Attestation: I personally reviewed and interpreted this ECG as follows: Rate (beats per minute): 95 Rhythm: + normal sinus ECG Intervals/blocks: + Normal QRS and + Normal NM ECG ST segments: + Normal ST segments Additional Comments: QTc 517. No peaked T waves. [facility] Narrative 1830: The patient was evaluated in room B1. A complete history and physical exam was performed Cardiac monitoring: An order was placed for continuous cardiac monitoring. The monitor shows a rate of 100 with sinus rhythm interpreted by me Patient has low GCS. Will intubate. 1200 cc of normal saline given by EMS. 1850: Patient intubated. See procedure note. POC ABG showed a pH of 6.93 CO2 23 pO2 467 bicarb of 5. Patient hypotensive. 2 L normal saline bolus was given through the patient's IO. Fentanyl drip will be started for sedation on the patient given the patient's hypotension. 1936: Patient was a very difficult IV stick and were unable to initially get labs. Central line was placed. Initially attempted to place a line in the patient's left femoral but was unable to sit placed on the right IJ. See procedure note. Labs were obtained from the central line and the [id number] VBG from central line showed a pH of 6.92 with a CO2 of 20.7 oxygen of 85 bicarb of 4.3 oxygen saturation 87%. I-STAT from that line showed a sodium 131 potassium 5.4 bicarb of 6 glucose greater than 700 creatinine of 2.8. Will take the patient to CT to rule out ICH. 2010: CT of the head viewed by me shows no ICH. Will contact ICU and get the patient admitted to the hospitalist team. 2030: Patient remains hypotensive. Fourth liter of IV fluids will be ordered for the patient. Discussed the case with ICU Brozovich [employer] O[employer]ATOR for Dr. Perez. Will start insulin drip without bolus. After discussing with ICU team they recommended starting bicarb drip in sterile water which we will also start. 2100: Patient remains hypotensive. ICU team at bedside. Will start Levophed. Impression & Plan DKA (diabetic ketoacidosis) Discharge Plan Visit Data Chief Complaint: Unresponsive ED Provider: Omar Garces Discharge Problem: DKA (diabetic ketoacidosis) Patient Disposition: Admitted As Inpatient Discharge Instructions Interventions: ED Discharge Assessment Last Done: 08/28/24 22:13 Discharge Problem: DKA (diabetic ketoacidosis) Qualifiers: Diabetes mellitus type: other specified (including SHILPA) Diabetes mellitus complication detail: with coma Qualified Code(s): E13.11 - Other specified diabetes mellitus with ketoacidosis with coma
[2024-08-28] MEDS ORDERED: SODIUM CHLORIDE 0.9% 1,000 ML IV SCH (22:30)
[2024-08-28 22:32] LABS: Basophils % (auto) 0.6 %; Echinocytes 1+; Eosinophils # (auto) 0.01 K/uL (0.00-0.50); Eosinophils % (auto) 0.1 %; Immature Granulocytes # (auto) 1.48 K/uL (0.01-0.20); Immature Granulocytes % (auto) 9.4 %; Lymphocytes # (auto) 1.45 K/uL (1.20-3.40); Lymphocytes % (auto) 9.2 %; Monocytes # (auto) 2.92 K/uL (0.11-0.59); Monocytes % (auto) 18.6 %; Neutrophils # (auto) 9.72 K/uL (1.40-6.50); Neutrophils % (auto) 62.1 %; Polychromasia 1+; Toxic Vacuolation 1+
[2024-08-28 22:57] LABS: Thyroid Stimulating Hormone 0.853 uIu/ml (0.300-4.500)
--- NOTE | 2024-08-28 23:03 | Procedure Note ---
Procedure Note Date of Service August 28, 2024 Procedure: Arterial Line Placement Proceduralist: Clinton AMES ([facility]) Attending: Dr. Perez Indication: Monitoring on Pressors, frequent blood draws Anesthesia: [x]Lidocaine 1% Emergent Consent was implied as patient is with vasopressor requirements, severe acidosis, on mechanical ventilation. No immediate family members available. A time-out was completed verifying correct patient, procedure, site, positioning. Allens test was performed to ensure adequate perfusion. Patients LEFT wrist was prepped and draped in the usual sterile fashion. Ultrasound guidance was used to aid needle placement. A 20g Arrow arterial line was introduced into the LEFT RADIAL artery, brisk blood flash was noted, the wire was advanced without resistance and the catheter was threaded. The needle was removed with appropriate blood return. Pressure tubing was attached noting adequate arterial waveform. The patient tolerated the procedure well. Blood Loss: Minimal Complications: None immediate- however after initial blood draw, the arterial line became dampened with poor blood return and inaccurate pressure reading when compared to NIBP. This was a small vessel noted on ultrasound, however was primarily placed for frequent blood draws, will re-attempt on right side or femoral. Artery Identified: YES- direct visualization under ultrasound guidance Patient tolerated procedure: WELL Procedure: Arterial Line Placement- same procedure alternate site Proceduralist: Clinton AMES ([facility]) Attending: Dr. Perez Indication: Monitoring on Pressors- frequent blood draws Anesthesia: [x]Lidocaine 1% Emergent Consent was implied as patient is with vasopressor requirements, severe acidosis, on mechanical ventilation. No immediate family members available. A time-out was completed verifying correct patient, procedure, site, positioning. Allens test was performed to ensure adequate perfusion. Patients RIGHT wrist was prepped and draped in the usual sterile fashion. Ultrasound guidance was used to aid needle placement. A 20g Arrow arterial line was introduced into the RIGHT RADIAL artery, brisk blood flash was noted, the wire was advanced without resistance and the catheter was threaded. The needle was removed with appropriate blood return. Pressure tubing was attached noting adequate arterial waveform. Line was secured with suture and sterile dressed. Blood Loss: Minimal Complications: None immediate [facility] [place] Procedure Codes (Charges) Tubes, Drains, and Vasc Access Procedure 1: Tubes, Drains, and Vasc Access: [id number] Arterial Cath/Cannulation Sampling/Monitoring/Transfusion Coding CPT Codes Tubes, Drains, and Vasc Access - Tubes, Drains, and Vasc Access: [id number] Arterial Cath/Cannulation Sampling/Monitoring/Transfusion ([id number]) Additional Codes Date of Service (PG.[email or web address])
[2024-08-28 23:54] LABS: Troponin I High Sensitivity 98.7 pg/ml (0-14)
[2024-08-28 23:55] LABS: iSTAT Allen Test Pass; iSTAT Art Bld Gas pCO2 Correct 15 mmHg (35-46); iSTAT Art Bld Gas pH Corrected 7.034 (7.35-7.45); iSTAT Arterial Blood Gas HCO3 4 meg/L (19-24); iSTAT Arterial Blood Gas pCO2 17 mmHg (35-46); iSTAT Arterial Blood Gas pO2 144 mmHg (80-95); iSTAT Arterial Blood Gas pO2 C 126; iSTAT Carbon Dioxide < 5 mmol/L (24-31); iSTAT FiO2 40 %; iSTAT Hematocrit 33 % (37-47); iSTAT Hemoglobin 11.2 g/dl (12.0-16.0); iSTAT Potassium 4.7 mmol/L (3.3-5.0); iSTAT Sample Type Arterial; iSTAT Site L Radial; iSTAT Sodium 135 mmol/L (135-144); iSTAT SpO2 97
[2024-08-29] MEDS: propofoL 1,000 MG/100 ML VIAL IV SCH
[2024-08-29] MEDS: STAT IV Infusion **Titration per Protocol STA (00:01)
[2024-08-29] MEDS: INSULIN ASPART PER UNIT CHARGE SC SCH (00:01)
[2024-08-29] MEDS: PANTOprazole 40 MG/10 ML SYR IV SCH (00:02)
[2024-08-29] MEDS: 4.5GM X1 IV STA (00:03)
[2024-08-29] MEDS: DAPTOmycin 300 MG in SYRINGE 0 ML IV SCH (00:04)
--- OUTSIDE RECORDS SUMMARY | 2024-08-29 00:26 | External Medical Summary | Continuity of Care Document ---
Author Name Unknown Organization [address] Address [address] [place], [place] [id number] Care Team Providers Care Sales Product Manager Name Role Phone Radha Briseno Primary Care Physician [id number] Encounter [facility] JULIANNEMARIVELSarah [phone] Date(s): 08/14/24 - 08/14/[address], [address] [place] [address] [phone] Encounter Diagnosis S/P vascular surgery, follow-up exam(Discharge Diagnosis) - 08/14/24 Peripheral arterial disease(Discharge Diagnosis) - 08/14/24 Discharge Disposition: Home or Self Care Attending Physician: RADHA Padilla Lynn Referring Physician: KWAKU Briseno Jenna Lynn Allergies, Adverse Reactions, Alerts No Known Medication Allergies Assessment and Plan Extracted from: Title:Clinical Document Author:RADHA Padilla Lynn Date:08/14/24 I OUTPATIENT NOTE Name: JUDY SORENSON Patient Number: [id number] : 1960 Date of Service: 08/14/2024 Chief Complaint: _ f/u for R groin wound HPI: _ Ms Sorenson is an elderly female who presents to Dr Fitzgerald's vascular surgery clinic today for a f/u visit regarding her R groin open wound an hx of R KITCHEN MECHANIC endarterectomy with bovine patch which occurred approx 2 months ago. Patient states that the drainage from her right groin wound has decreased significantly. She continues to deny any symptoms or problems related to her right lower leg. She states that her claudication symptoms have completely resolved since her surgery. She continues to deny any fevers chills or other concerns. She continues to place a dressing over this area daily. As you remember, patient did have a CT scan done of this area a few weeks ago to evaluate for possible fluid collection, which was negative for abscess, but did note a possible rectal mass. Patient states that she had to reschedule her colonoscopy due to an incomplete cleanout, and is scheduled for the first week of August. Current Home Meds: (Last Updated 07/17 13:58) acetaminophen-hydrocodone (Maxwell 5 mg-325 mg oral tablet) 1 tab PO q6h PRN: as needed for pain furosemide (furosemide 40 mg oral tablet) 40 mg PO Daily insulin aspart (insulin aspart 100 units/mL injectable solution) pump with basal rate and as needed dosing levothyroxine (levothyroxine 112 mcg (0.112 mg) oral tablet) 112 mcg PO Daily nystatin topical (nystatin 100,000 units/g topical powder) 1 appl topical bid Allergies and Sensitivities: No Known Medication Allergies Past Medical History: Problems: Peripheral arterial disease S/P vascular surgery, follow-up exam (atherosclerosis) Cubital tunnel syndrome on left Left carpal tunnel syndrome Left patella fracture OBJECTIVE Vitals: Last Updated 08/14/24 14:25 Date Temp BP Location Pulse RR SpO2 Pain 08/14/24 130/74 Left Arm 84 96 07/17/24 0 07/17/24 36.5 130/68 Right Arm 83 97 Vital Signs are the last 3 documented. No Orthostatic Data Available Height and Weight: Last Updated 07/30/23 13:50 Date BMI Wt(kg) Wt(lb) Method Ht(cm) (ft-in) Method 07/30/23 33.15 87 191 Standing Scale 162 5-4 09/21/22 27.6 72 158 Standing Scale 161.5 5-3 Heights and Weights are the last 3 documented. Physical Exam Constitutional: In general patient is an obese but healthy-appearing well- nourished well-developed elderly female no distress. Is alert and oriented without a focal deficits. Her right lower extremity distal pulses are +2 DP and PT. Her right groin surgical wound is well-healed aside from a small open area in the very center of the wound, which appears to be much more superficial, but is still open. I am unable to express anything from this wound. ASSESSMENT: _ PLAN: _ 1 ) _status post right KITCHEN MECHANIC endarterectomy with bovine patch, right groin open wound Patient continues to have a small open area in the center of this wound. She has had a significant decrease in the amount of drainage, as well as the depth of this open area. We recommend that she continue with daily dressing changes using Aquacel Ag and dry gauze, and return here in another 3 weeks or so for reevaluation. She is to call with any other concerning symptoms, and to go to the nearest emergency department if she should develop a fever. She is agreeable this plan. Thank you for letting us participate in the care of this patient. Medications furosemide 40 mg oral tablet Start: 09/21/22 3:32:00 PM EST, 1 tab, PO, Daily Start Date: 09/21/22 Status: Ordered insulin aspart 100 units/mL injectable solution Start: 09/21/22 3:32:00 PM EST, See Instructions, pump with basal rate and as needed dosing Start Date: 09/21/22 Status: Ordered levothyroxine 112 mcg (0.112 mg) oral tablet Start: 09/21/22 3:32:00 PM EST, 1 tab, PO, Daily Start Date: 09/21/22 Status: Ordered Maxwell 5 mg-325 mg oral tablet Start: 09/05/23 11:22:00 AM EST, 1 tab, PO, q6h, Disp# 12 tab, Refills: 0, PRN: as needed for pain, Pharmacy: [id number] Start Date: 09/05/23 Status: Ordered nystatin 100,000 units/g topical powder Start: 06/26/24 9:35:00 AM EDT, 1 appl, topical, bid, Disp# 30 g, Refills: 0, Pharmacy: [id number] Start Date: 06/26/24 Status: Ordered Problem List Condition Confirmation Course Effective Dates Status Health St atus Informant (atherosclerosis) Confirmed Active Left carpal tunnel syndrome Confirmed Active Cubital tunnel syndrome on left Confirmed Active Left patella fracture Confirmed Active Peripheral arterial disease Confirmed Active S/P vascular surgery, follow-up exam Confirmed Active Diagnosis Diagnosis Type Effective Dates Health Status Clinical Service Informant S/P vascular surgery, follow-up exam Discharge Diagnosis 08/14/24 Peripheral arterial disease Discharge Diagnosis 08/14/24 Procedures Procedure Date Related Diagnosis Body Site Status Right KITCHEN MECHANIC endarterectomy wit h bovine patch 06/04/24 Completed Carpal tunnel release 1 08/30/23 C ompleted Transposition of ulnar nerve at elbow 2 08/30/23 Completed 1Left 2Left Vital Signs Most recent to oldest [Reference Range]: 1 Heart Rate 84 bpm (08/14/24 2:25 PM) Blood Pressure 130/74mmHg (08/14/24 2:25 PM) Cuff Pulse Pressure 56 mmHg (08/14/24 2:25 PM) BP Location # 1 Left Arm (08/14/24 2:25 PM) Social History Social History Type Response Smoking Status Never smoked cigaret albina Sex Sex Representation Female (finding) [facility] Out[facility] Note * RADHA Padilla, Rach: PERFORM Event Display: [facility] Out[facility] Note Authored Date: [id number] [facility] OUTPATIENT NOTE Name: JUDY SORENSON Patient Number: [id number] : 1960 Date of Service: 08/14/2024 Chief Complaint: _ f/u for R groin wound HPI: _ Ms Sorenson is an elderly female who presents to Dr Fitzgerald's vascular surgery clinic today for af/u visit regarding her R groin open wound an hx of R KITCHEN MECHANIC endarterectomy with bovine patch which occurred approx 2 months ago. Patient states that the drainage from her right groin wound has decreased significantly. She continues to deny any symptoms or problems related to her right lower leg. She states that her claudication symptoms have completely resolved since her surgery. She continues to deny any fevers chills or other concerns. She continues to place a dressing over this area daily. As you remember, patient did have a CT scan done of this area a few weeks ago to evaluate for possible fluid collection, which was negative for abscess, but did note a possible rectal mass. Patient states that she had to reschedule her colonoscopy due to an incomplete cleanout, and is scheduled forthe first week of August. Current Home Meds: (Last Updated 07/17 13:58) acetaminophen-hydrocodone (Maxwell 5 mg-325 mg oral tablet) 1 tab PO q6h PRN: as needed for pain furosemide (furosemide 40 mg oral tablet) 40 mg PO Daily insulin aspart (insulin aspart 100 units/mL injectable solution) pump with basal rate and as neededdosing levothyroxine (levothyroxine 112 mcg (0.112 mg) oral tablet) 112 mcg PO Daily nystatin topical (nystatin 100,000 units/g topical powder) 1 appl topical bid Allergies and Sensitivities: No Known Medication Allergies Past Medical History: Problems: Peripheral arterial disease S/P vascular surgery, follow-up exam (atherosclerosis) Cubital tunnel syndrome on left Left carpal tunnel syndrome Left patella fracture OBJECTIVE Vitals: Last Updated 08/14/24 14:25 Date Temp BP Location Pulse RR SpO2 Pain 08/14/24 130/74 Left Arm 84 96 07/17/24 0 07/17/24 36.5 130/68 Right Arm 83 97 Vital Signs are the last 3 documented. No Orthostatic Data Available Height and Weight: Last Updated 07/30/23 13:50 Date BMI Wt(kg) Wt(lb) Method Ht(cm) (ft-in) Method 07/30/23 33.15 87 191 Standing Scale 162 5-4 09/21/22 27.6 72 158 Standing Scale 161.5 5-3 Heights and Weights are the last 3 documented. Physical Exam Constitutional: In general patient is an obese but healthy-appearing well- nourished well-developed elderly female no distress. Is alert and oriented without a focal deficits. Her right lower extremity distal pulses are +2 DP and PT. Her right groin surgical wound is well-healed aside from a small open area in the very center of the wound, which appears to be much more superficial, but is still open. I am unable to express anything from this wound. ASSESSMENT: _ PLAN: _ 1 ) _status post right KITCHEN MECHANIC endarterectomy with bovine patch, right groin open wound Patient continues to have a small open area in the center of this wound. She has had a significant decrease in the amount of drainage, as well as the depth of this open area. We recommend that she continue with daily dressing changes using Aquacel Ag and dry gauze, and return here in another 3 weeks or so for reevaluation. She is to call with any other concerning symptoms, and to go to the nearest emergency department if she should develop a fever. She is agreeable this plan. Thank you for letting us participate in the care of this patient. Electronic Signature on File CC: KWAKU [facility] [address] [place] [id number] * Electronically Reviewed/Signed by: Rach Padilla PA-C Author Signature Dt/Tm:08/14/2024 03:35 PM [facility] [place] [address], [address] [place] [address] Patient Care team information Care Team Personnel Name: KWAKU Briseno Jenna Lynn Position: Referring Member Role: Primary Care Provider Address: [facility] Archana Herrera [address] [place] [address] Name: RADHA Padilla Lynn Position: Physician Database Marketing Manager Exempt - Vasc Surg Member Role: Lifetime Relationship Address: [facility] [address] [place] [address]
[2024-08-29 00:48] LABS: iSTAT Art Bld Gas pCO2 Correct 13 mmHg (35-46); iSTAT Arterial Blood Gas HCO3 4 meg/L (19-24); iSTAT Arterial Blood Gas pCO2 15 mmHg (35-46); iSTAT Arterial Blood Gas pH 7.05 (7.35-7.45); iSTAT Arterial Blood Gas pO2 156 mmHg (80-95); iSTAT Arterial Blood Gas pO2 C 143; iSTAT Carbon Dioxide < 5 mmol/L (24-31); iSTAT FiO2 30 %; iSTAT Hematocrit 33 % (37-47); iSTAT Hemoglobin 11.2 g/dl (12.0-16.0); iSTAT Potassium 3.6 mmol/L (3.3-5.0); iSTAT Sample Type Arterial; iSTAT Site Art Line; iSTAT Sodium 134 mmol/L (135-144); iSTAT SpO2 99
[2024-08-29 01:17] LABS: BUN Creatinine Ratio 27.4 (10-20); Calcium 6.6 mg/dl (8.6-10.3); Creatinine Clr Calc Pharmacy 22.4 ml/min; Magnesium 2.1 mg/dl (1.7-2.4); Phosphorus 5.5 mg/dl (2.5-4.9); Potassium 3.5 mmol/L (3.5-5.1)
[2024-08-29] MEDS: POTASSIUM CHLORIDE / WTR 20 MEQ/100 ML PLCT IV SCH ×3 (01:38→17:53)
[2024-08-29] MEDS: POTASSIUM CHLORIDE 20 MEQ/15 ML UDC NG STA (01:38)
[2024-08-29] MEDS: ALBUMIN 5% 250 ML IV ONE (03:14)
--- NOTE | 2024-08-29 04:32 | Billing Data ---
Date of Service August 29, 2024 Coding Level of Care Code 76805 CRITICAL CARE
[2024-08-29 05:00] LABS: Albumin Globulin Ratio 1.6 (0.9-2); Albumin Level 2.9 gm/dl (3.4-5.0); Bilirubin,Total 0.6 mg/dl (0.2-1.0); Calcium 6.6 mg/dl (8.6-10.3); Creatinine Clr Calc Pharmacy 21.3 ml/min; Globulin 1.8 gm/dl (2.5-4.0); Phosphorus 2.4 mg/dl (2.5-4.9); Potassium 3.8 mmol/L (3.5-5.1); Total Protein 4.7 gm/dl (6.0-8.3)
[2024-08-29 05:06] LABS: iSTAT Art Bld Gas pCO2 Correct 18 mmHg (35-46); iSTAT Art Bld Gas pH Corrected 7.294 (7.35-7.45); iSTAT Arterial Blood Gas HCO3 9 meg/L (19-24); iSTAT Arterial Blood Gas pCO2 18 mmHg (35-46); iSTAT Arterial Blood Gas pH 7.29 (7.35-7.45); iSTAT Arterial Blood Gas pO2 97 mmHg (80-95); iSTAT Arterial Blood Gas pO2 C 96; iSTAT Carbon Dioxide 9 mmol/L (24-31); iSTAT FiO2 30 %; iSTAT Hematocrit 32 % (37-47); iSTAT Hemoglobin 10.9 g/dl (12.0-16.0); iSTAT Potassium 3.6 mmol/L (3.3-5.0); iSTAT Sample Type Arterial; iSTAT Site Art Line; iSTAT Sodium 135 mmol/L (135-144); iSTAT SpO2 100
[2024-08-29 05:10] LABS: INR 1.1 (0.9-1.1); Partial Thromboplastin Ratio 1.1; Partial Thromboplastin Time 29 Seconds (21-31); Prothrombin Time 12.1 Seconds (9.0-12.0)
[2024-08-29 05:36] LABS: Hematocrit (blood only) 32.6 % (37.0-47.0); Hemoglobin 11.4 g/dl (12.0-16.0); Mean Corpuscular Hemoglobin 30.3 pg (25.0-34.0); Mean Corpuscular Volume 86.7 fL (80.0-100.0); Mean Platelet Volume 10.3 fL (9.4-12.4); Platelet Count 182 K/uL (130-400); RDW Standard Deviation 41.2 fL (36.4-46.3); Red Blood Count 3.76 M/uL (4.20-5.40); White Blood Count 15.58 K/ul (4.8-10.8)
[2024-08-29 05:41] LABS: Basophils # (auto) 0.04 K/uL (0.00-0.20); Basophils % (auto) 0.3 %; Eosinophils # (auto) 0.02 K/uL (0.00-0.50); Eosinophils % (auto) 0.1 %; Immature Granulocytes # (auto) 0.66 K/uL (0.01-0.20); Immature Granulocytes % (auto) 4.2 %; Lymphocytes # (auto) 1.93 K/uL (1.20-3.40); Lymphocytes % (auto) 12.4 %; Monocytes # (auto) 2.06 K/uL (0.11-0.59); Monocytes % (auto) 13.2 %; Neutrophils # (auto) 10.87 K/uL (1.40-6.50); Neutrophils % (auto) 69.8 %
[2024-08-29] MEDS: CALCIUM CHLORIDE 10% 1,000 MG in DEXTROSE 5% 50 ML IV STA (05:44)
[2024-08-29] MEDS: HEPARIN SOD 5,000 UNIT/0.5 ML VIAL SQ SCH (05:44)
--- NOTE | 2024-08-29 07:37 | Hospitalist Progress Note ---
Date of Service August 29, 2024 Assessment & Plan (1) Admitted to intensive care unit: (2) Shock: (3) DKA (diabetic ketoacidosis): (4) ARF (acute renal failure): (5) Encephalopathy: (6) Metabolic acidosis: Plan The patient is a 63-year-old female with a PMHx of DM II c/b diabetic foot ulcer w/ OM, rectal mass pending colonoscopy (scheduled for 08/29/24), PAD s/p right fem endarterectomy, peripheral neuropathy, HLD, hypothyroidism, and lower extremity edema. Pt was last known well about 3 days prior to admission. Her sister reported that pt has been dealing with N/V during this period. She was reluctant to eat or drink and was not taking her insulin. They found her unresponsive lying in bed, and she reportedly had a glucose ordered by by EMS. The patient was assessed by emergency department personnel, patient was intubated for airway protection, and was presented to the hospitalist service and ICU for admission. #Shock - sepsis vs hypovolemia - admitted to ICU - systolic in the 60s on admission - s/p fluid resuscitation - bicarb drip, levophed drip - Dapto / Zosyn - BCx pending - CXR neg for pna #DKA with hyperglycemia #Severe metabolic acidosis - BG 1262, pH 6.92 on admission - A1c: 8.7 - cont bicarb drip - insulin drip #Acute renal failure - baseline Cr: 0.8, on admission: 3.11 - due to shock - trend at this time #Elevated troponin - suspect demand and poor clearance in the setting of ARF - EKG unremarkable - bedside ECHO with adequate contractility of RV and LV #Metabolic encephalopathy - CT head neg - likely due to shock and metabolic derangements #Rectal mass - colonoscopy when pt is medically stable #PAD s/p right fem endarterectomy #Peripheral neuropathy #Hypothyroidism: on levothyroxine 100mcg at home #HLD: rosuvastatin 40mg at home #Chronic lower extremity edema: lasix 40mg daily at home DVT ppx: hep subq , scds Admission and Anticipated Discharge Date Admission Date: August 28, 2024 Subjective Admitted to ICU overnight Vented and thus not able to communicate Review of Systems Review of Systems: Unable to perform ROS due to mentation Physical Exam Physical Exam: Gen: NAD HEENT: NC/AT, ET tube in place Lungs: CTAB anteriorly CVS: s1s2 nl Abd: protuberant, nl bowel sounds Ext: trace edema Neuro: sedated Results & Data Results & Data Vital Signs (Past 12 Hours) Vital Signs Temp Pulse Pulse Resp BP BP Pulse Ox 08/29/24 06:15 36.7 C 101 H 26 H 100 08/29/24 06:12 36.7 C 101 H 26 H 100 08/29/24 06:00 113/58 L 08/29/24 05:51 36.7 C 100 H 26 H 99 08/29/24 05:42 36.7 C 101 H 26 H 99 08/29/24 05:39 36.7 C 101 H 26 H 99 08/29/24 05:06 36.8 C 101 H 26 H 98 08/29/24 05:03 36.8 C 101 H 26 H 98 08/29/24 05:00 105/53 L 08/29/24 05:00 105/53 L 08/29/24 05:00 105/53 L 08/29/24 04:57 36.8 C 101 H 26 H 98 08/29/24 04:54 36.8 C 103 H 23 100 08/29/24 04:48 36.8 C 104 H 26 H 98 08/29/24 04:39 36.9 C 104 H 26 H 98 08/29/24 04:00 08/29/24 04:00 129/62 08/29/24 04:00 129/62 08/29/24 03:54 37.0 C 107 H 26 H 99 08/29/24 03:51 37.0 C 104 H 26 H 99 08/29/24 03:48 37.0 C 103 H 26 H 98 08/29/24 03:45 104 H 26 H 98 08/29/24 03:42 37.1 C 102 H 26 H 98 08/29/24 03:30 37.1 C 101 H 26 H 98 08/29/24 03:27 37.1 C 103 H 26 H 98 08/29/24 03:06 37.1 C 104 H 26 H 98 08/29/24 02:54 37.1 C 105 H 26 H 98 08/29/24 02:45 37.1 C 106 H 26 H 98 08/29/24 02:39 37.0 C 106 H 26 H 98 08/29/24 02:21 36.9 C 105 H 26 H 99 08/29/24 02:18 36.9 C 105 H 26 H 98 08/29/24 02:12 36.8 C 104 H 26 H 99 08/29/24 02:00 99/47 L 08/29/24 02:00 99/47 L 08/29/24 01:51 36.5 C 102 H 27 H 99 08/29/24 01:48 36.5 C 101 H 27 H 99 08/29/24 01:30 36.2 C L 102 H 26 H 99 08/29/24 01:27 36.1 C L 102 H 24 99 08/29/24 01:03 35.7 C L 101 H 24 100 08/29/24 01:00 97/49 L 08/29/24 00:54 35.6 C L 100 H 25 H 99 08/29/24 00:51 35.6 C L 99 H 20 100 08/29/24 00:45 35.5 C L 100 H 22 100 08/29/24 00:36 35.3 C L 101 H 23 99 08/29/24 00:30 35.2 C L 101 H 23 100 08/29/24 00:15 35.0 C L 103 H 22 99 08/29/24 00:12 34.9 C L 101 H 23 100 08/29/24 00:09 34.9 C L 103 H 20 99 08/29/24 00:03 34.8 C L 101 H 20 99 08/29/24 00:00 08/29/24 00:00 102 H 08/29/24 00:00 99/49 L 08/29/24 00:00 99/49 L 08/28/24 23:57 34.7 C L 100 H 20 99 08/28/24 23:30 34.4 C L 102 H 23 100 08/28/24 23:27 34.3 C L 104 H 21 100 08/28/24 23:24 34.3 C L 102 H 24 100 08/28/24 23:01 104/51 L 08/28/24 23:00 34.1 C L 102 H 20 99 08/28/24 22:57 34.1 C L 106 H 21 99 08/28/24 22:49 86 30 H 100 08/28/24 22:45 34.1 C L 103 H 20 99 08/28/24 22:39 34.1 C L 106 H 23 98 08/28/24 22:37 119/72 08/28/24 22:37 119/72 08/28/24 22:37 119/72 08/28/24 22:37 34.1 C L 95 H 26 H 85/47 L 97 08/28/24 22:33 34.1 C L 104 H 22 99 08/28/24 22:31 116/58 L 08/28/24 22:28 108/42 L 08/28/24 22:27 34.1 C L 103 H 25 H 98 08/28/24 22:21 34.1 C L 102 H 20 98 08/28/24 22:15 34.1 C L 100 H 22 99 08/28/24 22:13 08/28/24 22:10 85 08/28/24 22:00 08/28/24 21:40 79/44 L 08/28/24 21:38 95 H 22 97 08/28/24 21:35 75/49 L 08/28/24 21:32 94 H 22 97 08/28/24 21:30 84/43 L 08/28/24 21:27 34.3 C L 08/28/24 21:25 91/40 L 08/28/24 21:15 76/39 L 08/28/24 21:08 90 26 H 96 08/28/24 21:05 71/38 L 08/28/24 21:02 91 H 22 97 08/28/24 21:00 70/38 L 08/28/24 20:40 65/41 L 08/28/24 20:38 93 H 21 96 08/28/24 20:35 75/46 L 08/28/24 20:30 82/43 L 08/28/24 20:27 93 H 16 96 08/28/24 20:26 93 H 19 96 08/28/24 20:25 77/45 L 08/28/24 20:23 93 H 20 93 08/28/24 20:20 93 H 19 96 08/28/24 20:20 77/45 L 08/28/24 20:15 73/41 L 08/28/24 19:55 81/49 L 08/28/24 19:50 94 H 29 H 99 08/28/24 19:50 76/48 L 08/28/24 19:45 80/47 L 08/28/24 19:44 95 H 29 H 97 08/28/24 19:40 84/48 L 08/28/24 19:36 101 H 22 100 08/28/24 19:35 96 H 25 H 99 08/28/24 19:35 82/71 L 08/28/24 19:32 97 H 27 H 98 08/28/24 19:31 91/40 L 08/28/24 19:29 97 H 26 H 98 08/28/24 19:26 97 H 28 H 99 08/28/24 19:25 75/49 L 08/28/24 19:23 98 H 27 H 100 08/28/24 19:21 84/49 L O2 Del Method FiO2 08/29/24 06:15 08/29/24 06:12 08/29/24 06:00 08/29/24 05:51 08/29/24 05:42 08/29/24 05:39 08/29/24 05:06 08/29/24 05:03 08/29/24 05:00 08/29/24 05:00 08/29/24 05:00 08/29/24 04:57 08/29/24 04:54 08/29/24 04:48 08/29/24 04:39 08/29/24 04:00 30 08/29/24 04:00 08/29/24 04:00 08/29/24 03:54 08/29/24 03:51 08/29/24 03:48 08/29/24 03:45 30 08/29/24 03:42 08/29/24 03:30 08/29/24 03:27 08/29/24 03:06 08/29/24 02:54 08/29/24 02:45 08/29/24 02:39 08/29/24 02:21 08/29/24 02:18 08/29/24 02:12 08/29/24 02:00 08/29/24 02:00 08/29/24 01:51 08/29/24 01:48 08/29/24 01:30 08/29/24 01:27 08/29/24 01:03 08/29/24 01:00 08/29/24 00:54 Mechanical Vent 08/29/24 00:51 08/29/24 00:45 08/29/24 00:36 08/29/24 00:30 08/29/24 00:15 08/29/24 00:12 08/29/24 00:09 08/29/24 00:03 08/29/24 00:00 30 08/29/24 00:00 08/29/24 00:00 08/29/24 00:00 08/28/24 23:57 08/28/24 23:30 08/28/24 23:27 08/28/24 23:24 08/28/24 23:01 08/28/24 23:00 08/28/24 22:57 08/28/24 22:49 40 08/28/24 22:45 08/28/24 22:39 08/28/24 22:37 08/28/24 22:37 08/28/24 22:37 08/28/24 22:37 Mechanical Vent 08/28/24 22:33 08/28/24 22:31 08/28/24 22:28 08/28/24 22:27 08/28/24 22:21 Mechanical Vent 08/28/24 22:15 08/28/24 22:13 Mechanical Vent 08/28/24 22:10 08/28/24 22:00 Mechanical Vent 08/28/24 21:40 08/28/24 21:38 Mechanical Vent 08/28/24 21:35 08/28/24 21:32 Mechanical Vent 08/28/24 21:30 08/28/24 21:27 08/28/24 21:25 08/28/24 21:15 08/28/24 21:08 Mechanical Vent 08/28/24 21:05 Mechanical Vent 08/28/24 21:02 Mechanical Vent 08/28/24 21:00 08/28/24 20:40 08/28/24 20:38 Mechanical Vent 08/28/24 20:35 08/28/24 20:30 08/28/24 20:27 Mechanical Vent 08/28/24 20:26 Mechanical Vent 08/28/24 20:25 08/28/24 20:23 Mechanical Vent 08/28/24 20:20 Mechanical Vent 08/28/24 20:20 08/28/24 20:15 08/28/24 19:55 08/28/24 19:50 Mechanical Vent 08/28/24 19:50 08/28/24 19:45 08/28/24 19:44 Mechanical Vent 08/28/24 19:40 08/28/24 19:36 100 08/28/24 19:35 08/28/24 19:35 08/28/24 19:32 Mechanical Vent 08/28/24 19:31 08/28/24 19:29 Mechanical Vent 08/28/24 19:26 Mechanical Vent 08/28/24 19:25 08/28/24 19:23 Mechanical Vent 08/28/24 19:21 PG Care Time/CCT Total # of Minutes Spent Total Time Spent with Patient: Total time spent is greater than 50% in coordination of care (as documented) at patient's floor/unit and/or counseling patient: Coding Level of Care Code 82103 SUB INP/OBS CARE 235MIN Diagnoses Admitted to intensive care unit Z78.9 Shock R57.9 DKA (diabetic ketoacidosis) E13.11 Diabetes mellitus complication detail: with coma Diabetes mellitus type: other specified (including SHILPA) ARF (acute renal failure) N17.9 Encephalopathy G93.40 Metabolic acidosis E87.20 (3) DKA (diabetic ketoacidosis) Diabetes mellitus complication detail: with coma Diabetes mellitus type: other specified (including SHILPA) Qualified Code(s): E13.11 - Other specified diabetes mellitus with ketoacidosis with coma
--- NOTE | 2024-08-29 07:47 | Critical Care Progress Note ---
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 Currently requiring escalating dose of vasopressors and acid base support as well as insulin infusion. Neuro - Encephalopathy, Sedation for mechanical ventilation CAM ICU: Unable to assess - Metabolic encephalopathy- at this time multifactorial to include severely elevated glucose, severe acidemia, and with hypotension - concerning for cerebral injury with unknown time of unresponsiveness/coma in setting of above - Head CT negative for bleed or mass effect - Sedation with Fentanyl at this time Cardiac - Shock, PAD, elevated HsCTNI -- Shock Multifactorial- sepsis and hypovolemia combination is likely in setting of severe DKA - She has been resuscitated at this time with ~ 5 L of crystalloid - Vasopressors have been increasing despite volume- appreciate central line placed by EMD - Sepsis can't be excluded at this time noting- WBC and elevated PCT however all in setting of hypovolemia with DKA and ARF-on broad-spectrum antibiotics - sources- intraabdominal vs. skin from previous endarterectomy site vs other -- PAD- stable chronic -Elevated troponin- Likely demand in setting of shock- no ST elevations on ECG Continue to trend Respiratory - Intubated and mechanically ventilated secondary to encephalopathy -- VDRF Likely secondary to ABLA protection Continue with ventilatory support Keep RASS -1 Daily sedation holidays and SBT's GI - GERD, ? colon mass --Nausea and vomiting Likely related to DKA --GERD Continue with PPI --Questionable colonic mass Reportedly had colonoscopy scheduled for 08/29/24- this will likely need to be rescheduled until she is more stable at this time- should warrant discussion with GI on follow on care RENAL/LYTES - ARF, AGAP Metabolic Acidosis, electrolyte disturbances -- Acute renal failure Non-oliguric, baseline [employer] most recently of 0.86 Likely prerenal, cannot rule out ATN given the shock continue with isotonic bicarb as maintenance Monitor BUN/creatinine Avoid nephrotoxic medications Strict ins and outs -At the time of presentation, serum osmo 390- GAP 28- osmolar gap 36- in setting of DKA and renal failure- no history of ETOH use - Tox screen negative - No acute needs Continue with Stacy ENDO - DKA, Hypothyroidism --DKA -Initial presentation with PH <7, Glucose >1K, HCO3 4, ketones in urine- severe acidosis and elevated glucose - as she is remaining with PH <7.1 on bicarb infusion and insulin- will increase her insulin drip from 0.15units/kg/hr to 0.2units/kg/hour, until PH improves and glucose decreases. At high risk for cerebral edema with glucose levels and hypovolemic state Continue with insulin drip until anion gap closes Decreasing blood glucose no more than 100 in an hour Replace potassium IV when potassium level between 3.3-5.3 BMP every 4 hours Continue with IV fluids -- Hypothyroidism TSH 0.85 Will give IV levothyroxine while intubated HEME - No acute needs - f monitor H&H ID - Septic Shock - At this time unable to rule out infection as cause- Does have leukocytosis- which may also be hemoconcentrated Procalcitonin 5.5 - LFTS not elevated, lipase <9 - urine does not appear infected - MRSA swab negative - Surgical site has small open area however without surrounding erythema or drainage - Blood cultures x2 pending Continue with empiric antibiotics for the time being --DNR-- Okay for vasopressors --Prophylaxis VTE: Heparin GI: Pantoprazole Lines: Right radial, right IJ Diet: N.p.o. Plan: In/out: +5.7 L, urine output 885 Patient's VBG shows pH of 7.4, discontinue bicarb drip Half NS to be started at 100 mL an hour. Potassium and phosphorus being replaced 1 g of calcium will be given to the patient Wound care will be consulted to look at the right groin Continue with empiric antibiotics given elevated procalcitonin I have personally spent 48 minutes of critical care time in the direct management of this patient. This is a life/limb threatening event. This includes time spent evaluating patient, direct bedside care, chart review, placing orders, interpretation of diagnostic studies, discussion with consultants, patient, and family members, as well as other required patient management activities. This time is exclusive of all separately billable procedures, and separate from and in addition to any other critical care service time. Thank you for allowing us to participate in the care of this patient. Please refer to my attending physician's documentation for any further recommendations. Admission and Anticipated Discharge Date Admission Date: August 28, 2024 Subjective Patient seen and examined at bedside. No acute distress, no adverse events overnight She was breathing with the went MAP was in the low to mid 60s fluctuating. Has been having low-grade fever. Review of Systems 2 Review of Systems: Unobtainable due to endotracheal tube Physical Exam 2 Physical Exam: Constitutional: No acute distress HEENT: PERRLA Respiratory system: Decreased air entry bilaterally, no wheeze, no rhonchi, positive crackles bilateral lower lobe CVS: S1-S2 positive, no murmurs or gallops Abdomen: Soft, nontender, nondistended, positive bowel sounds x4 Extremities: +2 pulses bilaterally radialis/ dorsalis pedis, no cyanosis, no edema Neuro: Breathing with the vent, RASS -2 Psych: Unable to assess G/U: Positive Stacy Skin: Patient has small skin ulcer at the site of right endarterectomy incision. There is no fluctuance, no rubor, no calor, no dolor Skin: no rashes, warm and dry Lymphatic: no cervical or axillary lymphadenopathy Results & Data Results & Data Vital Signs (Past 12 Hours) Vital Signs Temp Pulse Pulse Resp BP BP Pulse Ox 08/29/24 06:15 36.7 C 101 H 26 H 100 08/29/24 06:12 36.7 C 101 H 26 H 100 08/29/24 06:00 113/58 L 08/29/24 05:51 36.7 C 100 H 26 H 99 08/29/24 05:42 36.7 C 101 H 26 H 99 08/29/24 05:39 36.7 C 101 H 26 H 99 08/29/24 05:06 36.8 C 101 H 26 H 98 08/29/24 05:03 36.8 C 101 H 26 H 98 08/29/24 05:00 105/53 L 08/29/24 05:00 105/53 L 08/29/24 05:00 105/53 L 08/29/24 04:57 36.8 C 101 H 26 H 98 08/29/24 04:54 36.8 C 103 H 23 100 08/29/24 04:48 36.8 C 104 H 26 H 98 08/29/24 04:39 36.9 C 104 H 26 H 98 08/29/24 04:00 08/29/24 04:00 129/62 08/29/24 04:00 129/62 08/29/24 03:54 37.0 C 107 H 26 H 99 08/29/24 03:51 37.0 C 104 H 26 H 99 08/29/24 03:48 37.0 C 103 H 26 H 98 08/29/24 03:45 104 H 26 H 98 08/29/24 03:42 37.1 C 102 H 26 H 98 08/29/24 03:30 37.1 C 101 H 26 H 98 08/29/24 03:27 37.1 C 103 H 26 H 98 08/29/24 03:06 37.1 C 104 H 26 H 98 08/29/24 02:54 37.1 C 105 H 26 H 98 08/29/24 02:45 37.1 C 106 H 26 H 98 08/29/24 02:39 37.0 C 106 H 26 H 98 08/29/24 02:21 36.9 C 105 H 26 H 99 08/29/24 02:18 36.9 C 105 H 26 H 98 08/29/24 02:12 36.8 C 104 H 26 H 99 08/29/24 02:00 99/47 L 08/29/24 02:00 99/47 L 08/29/24 01:51 36.5 C 102 H 27 H 99 08/29/24 01:48 36.5 C 101 H 27 H 99 08/29/24 01:30 36.2 C L 102 H 26 H 99 08/29/24 01:27 36.1 C L 102 H 24 99 08/29/24 01:03 35.7 C L 101 H 24 100 08/29/24 01:00 97/49 L 08/29/24 00:54 35.6 C L 100 H 25 H 99 08/29/24 00:51 35.6 C L 99 H 20 100 08/29/24 00:45 35.5 C L 100 H 22 100 08/29/24 00:36 35.3 C L 101 H 23 99 08/29/24 00:30 35.2 C L 101 H 23 100 08/29/24 00:15 35.0 C L 103 H 22 99 08/29/24 00:12 34.9 C L 101 H 23 100 08/29/24 00:09 34.9 C L 103 H 20 99 08/29/24 00:03 34.8 C L 101 H 20 99 08/29/24 00:00 08/29/24 00:00 102 H 08/29/24 00:00 99/49 L 08/29/24 00:00 99/49 L 08/28/24 23:57 34.7 C L 100 H 20 99 08/28/24 23:30 34.4 C L 102 H 23 100 08/28/24 23:27 34.3 C L 104 H 21 100 08/28/24 23:24 34.3 C L 102 H 24 100 08/28/24 23:01 104/51 L 08/28/24 23:00 34.1 C L 102 H 20 99 08/28/24 22:57 34.1 C L 106 H 21 99 08/28/24 22:49 86 30 H 100 08/28/24 22:45 34.1 C L 103 H 20 99 08/28/24 22:39 34.1 C L 106 H 23 98 08/28/24 22:37 119/72 08/28/24 22:37 119/72 08/28/24 22:37 119/72 08/28/24 22:37 34.1 C L 95 H 26 H 85/47 L 97 08/28/24 22:33 34.1 C L 104 H 22 99 08/28/24 22:31 116/58 L 08/28/24 22:28 108/42 L 08/28/24 22:27 34.1 C L 103 H 25 H 98 08/28/24 22:21 34.1 C L 102 H 20 98 08/28/24 22:15 34.1 C L 100 H 22 99 08/28/24 22:13 08/28/24 22:10 85 08/28/24 22:00 08/28/24 21:40 79/44 L 08/28/24 21:38 95 H 22 97 08/28/24 21:35 75/49 L 08/28/24 21:32 94 H 22 97 08/28/24 21:30 84/43 L 08/28/24 21:27 34.3 C L 08/28/24 21:25 91/40 L 08/28/24 21:15 76/39 L 08/28/24 21:08 90 26 H 96 08/28/24 21:05 71/38 L 08/28/24 21:02 91 H 22 97 08/28/24 21:00 70/38 L 08/28/24 20:40 65/41 L 08/28/24 20:38 93 H 21 96 08/28/24 20:35 75/46 L 08/28/24 20:30 82/43 L 08/28/24 20:27 93 H 16 96 08/28/24 20:26 93 H 19 96 08/28/24 20:25 77/45 L 08/28/24 20:23 93 H 20 93 08/28/24 20:20 93 H 19 96 08/28/24 20:20 77/45 L 08/28/24 20:15 73/41 L 08/28/24 19:55 81/49 L 08/28/24 19:50 94 H 29 H 99 08/28/24 19:50 76/48 L O2 Del Method FiO2 08/29/24 06:15 08/29/24 06:12 08/29/24 06:00 08/29/24 05:51 08/29/24 05:42 08/29/24 05:39 08/29/24 05:06 08/29/24 05:03 08/29/24 05:00 08/29/24 05:00 08/29/24 05:00 08/29/24 04:57 08/29/24 04:54 08/29/24 04:48 08/29/24 04:39 08/29/24 04:00 30 08/29/24 04:00 08/29/24 04:00 08/29/24 03:54 08/29/24 03:51 08/29/24 03:48 08/29/24 03:45 30 08/29/24 03:42 08/29/24 03:30 08/29/24 03:27 08/29/24 03:06 08/29/24 02:54 08/29/24 02:45 08/29/24 02:39 08/29/24 02:21 08/29/24 02:18 08/29/24 02:12 08/29/24 02:00 08/29/24 02:00 08/29/24 01:51 08/29/24 01:48 08/29/24 01:30 08/29/24 01:27 08/29/24 01:03 08/29/24 01:00 08/29/24 00:54 Mechanical Vent 08/29/24 00:51 08/29/24 00:45 08/29/24 00:36 08/29/24 00:30 08/29/24 00:15 08/29/24 00:12 08/29/24 00:09 08/29/24 00:03 08/29/24 00:00 08/29/24 00:00 08/29/24 00:00 08/29/24 00:00 08/28/24 23:57 08/28/24 23:30 08/28/24 23:27 08/28/24 23:24 08/28/24 23:01 08/28/24 23:00 08/28/24 22:57 08/28/24 22:49 40 08/28/24 22:45 08/28/24 22:39 08/28/24 22:37 08/28/24 22:37 08/28/24 22:37 08/28/24 22:37 Mechanical Vent 08/28/24 22:33 08/28/24 22:31 08/28/24 22:28 08/28/24 22:27 08/28/24 22:21 Mechanical Vent 08/28/24 22:15 08/28/24 22:13 Mechanical Vent 08/28/24 22:10 08/28/24 22:00 Mechanical Vent 08/28/24 21:40 08/28/24 21:38 Mechanical Vent 08/28/24 21:35 08/28/24 21:32 Mechanical Vent 08/28/24 21:30 08/28/24 21:27 08/28/24 21:25 08/28/24 21:15 08/28/24 21:08 Mechanical Vent 08/28/24 21:05 Mechanical Vent 08/28/24 21:02 Mechanical Vent 08/28/24 21:00 08/28/24 20:40 08/28/24 20:38 Mechanical Vent 08/28/24 20:35 08/28/24 20:30 08/28/24 20:27 Mechanical Vent 08/28/24 20:26 Mechanical Vent 08/28/24 20:25 08/28/24 20:23 Mechanical Vent 08/28/24 20:20 Mechanical Vent 08/28/24 20:20 08/28/24 20:15 08/28/24 19:55 08/28/24 19:50 Mechanical Vent 08/28/24 19:50 Laboratory Results 08/29/24 04:24 Coding Level of Care Code 96605 CRITICAL CARE 1ST 30-74M Diagnoses DKA (diabetic ketoacidosis) E13.11 Diabetes mellitus complication detail: with coma Diabetes mellitus type: other specified (including SHILPA) ARF (acute renal failure) N17.9 Encephalopathy G93.40 Shock R57.9 Metabolic acidosis E87.20 Mass in rectum K62.89 Peripheral arterial disease I73.9 Dyslipidemia E78.5 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
[2024-08-29] MEDS: PIPERACILLIN/TAZOBACTAM 4.5 GM/100 ML BAG IV SCH (07:57)
[2024-08-29 08:56] LABS: Appearance Urine Cloudy (Clear); Bilirubin Urine Negative (Negative); Blood Urine 3+ (Negative); Color Urine Orange; Glucose Urine UA 3+ (Negative); Ketones Urine 1+ (Negative); Leukocyte Esterase Urine Trace (Negative); Nitrite Urine Negative (Negative); Protein Urine 3+ (Negative); Urobilinogen Urine Negative (Negative); pH Urine 5.5 (4.5-7.5)
[2024-08-29 09:10] LABS: Bacteria Urine Automated 2+ (None Seen); Epithelial Cell Urine Auto 0-2 /hpf (0-2)
[2024-08-29 09:11] LABS: Granular Casts Urine Present /lpf (None Prsent)
[2024-08-29 09:18] LABS: Creatinine Urine Random 38.9 mg/dl; Potassium Random Urine 30.8 mmol/L
[2024-08-29 09:31] LABS: Anion Gap 18 (3-11); BUN Creatinine Ratio 25.9 (10-20); Blood Urea Nitrogen 82 mg/dl (6-23); Calcium 7.3 mg/dl (8.6-10.3); Carbon Dioxide 17 mmol/L (21-32); Chloride 101 mmol/L (98-107); Glucose 709 mg/dl (70-99(Fasting)); Magnesium 1.8 mg/dl (1.7-2.4); Phosphorus < 1.0 mg/dl (2.5-4.9); Potassium 3.6 mmol/L (3.5-5.1); Sodium 136 mmol/L (136-145)
[2024-08-29] MEDS: POTASSIUM PHOSPHATE 21 MMOL in SODIUM CHLORIDE 0.9% 500 ML IV ONE (10:34)
[2024-08-29] MEDS: CALCIUM GLUCONATE 10% 1,000 MG in NS X1 BAG IV ONE (10:34)
[2024-08-29] MEDS: MAGNESIUM SULFATE / D5W 1 GM/100 ML BAG IV SCH (10:34)
[2024-08-29] MEDS: SODIUM CHLORIDE 0.45 % 1,000 ML IV SCH (10:34)
[2024-08-29] MEDS ORDERED: ETOMIDATE 2 MG/ML 20 ML VIAL IV ONE (12:57)
[2024-08-29] MEDS ORDERED: SUCCINYLCHOLINE CHLORIDE 20 MG/ML 10 ML VIAL IV ONE (12:57)
--- NOTE | 2024-08-29 13:25 | Electrocardiogram Report ---
Test Reason : Blood Pressure : */* mmHG Vent. Rate : 95 BPM Atrial Rate : 95 BPM P-R Int : 184 ms QRS Dur : 106 ms QT Int : 412 ms P-R-T Axes : 49 2 83 degrees QTcB Int : 517 ms Normal sinus rhythm Low voltage QRS Nonspecific ST abnormality Prolonged QT Abnormal ECG When compared with ECG of 03-Feb-2024 19:46, QRS axis Shifted right Confirmed by Victor M Betts ([id number]) on 08/29/2024 1:25:16 PM Referred By: REFERRED SELF Confirmed By: Victor M Betts
[2024-08-29 13:53] LABS: BUN Creatinine Ratio 22.3 (10-20); Calcium 7.6 mg/dl (8.6-10.3); Creatinine Clr Calc Pharmacy 19.8 ml/min; Magnesium 2.1 mg/dl (1.7-2.4); Phosphorus 1.1 mg/dl (2.5-4.9); Potassium 3.5 mmol/L (3.5-5.1)
[2024-08-29 16:55] LABS: BUN Creatinine Ratio 23.3 (10-20); Calcium 7.4 mg/dl (8.6-10.3); Creatinine Clr Calc Pharmacy 19.2 ml/min; Magnesium 2.1 mg/dl (1.7-2.4); Phosphorus 1.5 mg/dl (2.5-4.9); Potassium 3.4 mmol/L (3.5-5.1)
[2024-08-29] MEDS ORDERED: POTASSIUM PHOS 3 MMOL/1 ML INFUSION IV STA (17:14)
[2024-08-29] MEDS: POTASSIUM PHOSPHATE 15 MMOL in SODIUM CHLORIDE 0.9% 250 ML IV ONE (17:57)
[2024-08-29] MEDS ORDERED: PENDING D5 1/2NS+20mEq KCL IVF SCH (19:15)
[2024-08-29] MEDS: D5W AND 1/2NSS + 20MEQ KCL 20 MEQ/1,000 ML BAG IV SCH (19:52)
[2024-08-29 20:57] LABS: BUN Creatinine Ratio 22.3 (10-20); Calcium 7.2 mg/dl (8.6-10.3); Creatinine Clr Calc Pharmacy 18.6 ml/min; Phosphorus 2.1 mg/dl (2.5-4.9); Potassium 4.1 mmol/L (3.5-5.1)
[2024-08-29 22:07] LABS: iSTAT Allen Test Pass; iSTAT Art Bld Gas pCO2 Correct 30 mmHg (35-46); iSTAT Art Bld Gas pH Corrected 7.462 (7.35-7.45); iSTAT Arterial Blood Gas HCO3 22 meg/L (19-24); iSTAT Arterial Blood Gas pCO2 30 mmHg (35-46); iSTAT Arterial Blood Gas pH 7.47 (7.35-7.45); iSTAT Arterial Blood Gas pO2 79 mmHg (80-95); iSTAT Arterial Blood Gas pO2 C 81; iSTAT Carbon Dioxide 23 mmol/L (24-31); iSTAT FiO2 30 %; iSTAT Hematocrit 35 % (37-47); iSTAT Hemoglobin 11.9 g/dl (12.0-16.0); iSTAT Potassium 3.9 mmol/L (3.3-5.0); iSTAT Sample Type Arterial; iSTAT Site Art Line; iSTAT Sodium 138 mmol/L (135-144); iSTAT SpO2 97
[2024-08-30 00:55] LABS: BUN Creatinine Ratio 21.2 (10-20); Calcium 7.1 mg/dl (8.6-10.3); Creatinine Clr Calc Pharmacy 17.5 ml/min; Phosphorus 2.2 mg/dl (2.5-4.9); Potassium 3.9 mmol/L (3.5-5.1)
[2024-08-30] MEDS: POTASSIUM CHLORIDE 20 MEQ/15 ML UDC PO STA (01:31)
[2024-08-30] MEDS: fentaNYL BOLUS from BAG IV PRN ×2 (03:00→19:30)
[2024-08-30 05:04] LABS: Basophils # (auto) 0.02 K/uL (0.00-0.20); Basophils % (auto) 0.1 %; Hematocrit (blood only) 36.1 % (37.0-47.0); Hemoglobin 13.2 g/dl (12.0-16.0); Immature Granulocytes # (auto) 0.21 K/uL (0.01-0.20); Immature Granulocytes % (auto) 1.2 %; Lymphocytes # (auto) 1.22 K/uL (1.20-3.40); Lymphocytes % (auto) 7.2 %; Mean Corpuscular Hemoglobin 30.2 pg (25.0-34.0); Mean Corpuscular Hgb Conc 36.6 g/dL (32.0-36.0); Mean Corpuscular Volume 82.6 fL (80.0-100.0); Mean Platelet Volume 10.5 fL (9.4-12.4); Monocytes # (auto) 1.57 K/uL (0.11-0.59); Monocytes % (auto) 9.2 %; Neutrophils # (auto) 13.97 K/uL (1.40-6.50); Neutrophils % (auto) 82.3 %; Platelet Count 111 K/uL (130-400); RDW Coefficient of Variation 13.3 % (11.5-14.5); RDW Standard Deviation 40.1 fL (36.4-46.3); Red Blood Count 4.37 M/uL (4.20-5.40); White Blood Count 16.99 K/ul (4.8-10.8)
[2024-08-30 05:24] LABS: Albumin Globulin Ratio 1.3 (0.9-2); Albumin Level 2.5 gm/dl (3.4-5.0); BUN Creatinine Ratio 21.3 (10-20); Bilirubin,Total 0.6 mg/dl (0.2-1.0); Calcium 7.1 mg/dl (8.6-10.3); Creatinine Clr Calc Pharmacy 17.3 ml/min; Globulin 1.9 gm/dl (2.5-4.0); Potassium 4.8 mmol/L (3.5-5.1); Total Protein 4.4 gm/dl (6.0-8.3)
[2024-08-30 05:32] LABS: INR 1.1 (0.9-1.1); Partial Thromboplastin Ratio 1.2; Partial Thromboplastin Time 31 Seconds (21-31); Prothrombin Time 11.7 Seconds (9.0-12.0)
[2024-08-30 08:17] LABS: Base Excess VBG -1.8 mEq/L; HCO3 VBG 22 mmol/L; Oxygen Saturation VBG 98.6 %; PCO2 VBG 35 mmHg (38-50); PO2 VBG 90 mmHg; pH VBG 7.41 (7.36-7.41)
--- NOTE | 2024-08-30 08:30 | XRay Report ---
XR chest 1V portable CLINICAL HISTORY: eval lines/tubes/lung de [place] COMPARISON STUDY: Chest radiograph August 28, 2024. FINDINGS: Tip of endotracheal tube is 2.2 cm above the muna. Tip of nasogastric tube is below the l ower aspect of this image but at least within the mid body of the stomach. Right internal jugular alcides tral line remains in place. There is no pneumothorax. Low lung volumes are unchanged. Interstitial th ickening has mildly progressed. There are small bilateral pleural effusions associated bibasilar opac ities. These have slightly progressed. IMPRESSION: 1. Satisfactory positioning of lines and tubes. 2. No pneumothorax. 3. Mild progression of pulmonary edema. 4. Small bilateral pleural effusions with associated bibasilar opacities which could reflect atelecta sis or pneumonia. These have progressed. ACT 112: Negative or not required by law. Electronically signed by: Navjot Live M.D. 08/30/2024 8:29 AM
[2024-08-30 08:35] LABS: BUN Creatinine Ratio 20.7 (10-20); Calcium 7.1 mg/dl (8.6-10.3); Creatinine Clr Calc Pharmacy 16.4 ml/min; Phosphorus 2.3 mg/dl (2.5-4.9); Potassium 4.7 mmol/L (3.5-5.1)
--- NOTE | 2024-08-30 08:38 | Critical Care Progress Note ---
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 Currently requiring escalating dose of vasopressors and acid base support as well as insulin infusion. Neuro - Encephalopathy, Sedation for mechanical ventilation CAM ICU: Unable to assess - Metabolic encephalopathy- at this time multifactorial to include severely elevated glucose, severe acidemia, and with hypotension - concerning for cerebral injury with unknown time of unresponsiveness/coma in setting of above - Head CT negative for bleed or mass effect - Sedation with Fentanyl at this time Cardiac - Shock, PAD, elevated HsCTNI -- S/p shock Multifactorial- sepsis and hypovolemia combination is likely in setting of severe DKA - sources- intraabdominal vs. skin from previous endarterectomy site vs other -- PAD- stable chronic -Elevated troponin- Likely demand in setting of shock- no ST elevations on ECG Continue to trend Respiratory - Intubated and mechanically ventilated secondary to encephalopathy -- VDRF Secondary to airway protection Continue with ventilatory support Keep RASS -1 Daily sedation holidays and SBT's GI - GERD, ? colon mass --GERD Continue with PPI --Questionable colonic mass Reportedly had colonoscopy scheduled for 08/29/24- this will likely need to be rescheduled until she is more stable at this time- should warrant discussion with GI on follow on care RENAL/LYTES - ARF, AGAP Metabolic Acidosis, electrolyte disturbances -- Acute renal failure Non-oliguric, baseline [employer] most recently of 0.86 Likely prerenal, cannot rule out ATN given the shock continue with isotonic bicarb as maintenance Monitor BUN/creatinine Avoid nephrotoxic medications Strict ins and outs -At the time of presentation, serum osmo 390- GAP 28- osmolar gap 36- in setting of DKA and renal failure- no history of ETOH use - Tox screen negative - No acute needs Continue with Stacy ENDO - DKA, Hypothyroidism --DKA -Initial presentation with PH <7, Glucose >1K, HCO3 4, ketones in urine- severe acidosis and elevated glucose At high risk for cerebral edema with glucose levels and hypovolemic state Continue with insulin drip until anion gap closes Decreasing blood glucose no more than 100 in an hour Replace potassium IV when potassium level between 3.3-5.3 BMP every 4 hours Continue with IV fluids -- Hypothyroidism TSH 0.85 Will give IV levothyroxine while intubated HEME - No acute needs -- New onset thrombocytopenia Could be sepsis Continue to monitor ID - Septic Shock - At this time unable to rule out infection as cause- Does have leukocytosis- which may also be hemoconcentrated Procalcitonin 5.5 - urine does not appear infected - MRSA swab negative - Surgical site has small open area however without surrounding erythema or drainage - Blood cultures x2 negative to date Continue with empiric antibiotics for the time being --DNR Okay for vasopressors --Prophylaxis VTE: Heparin GI: Pantoprazole Lines: Right radial, right IJ Diet: N.p.o. Plan: In/out: +4.7 L, urine output 380 mL, patient is +10 L since coming to the hospital Will do a bladder scan to make sure that the Stacy is working. Nephrology has been consulted I will decrease the IV fluid and hopefully discontinue it today. Try to transition insulin to subcu insulin if possible Chest x-ray shows pulmonary vascular congestion now. Wound care will be consulted to look at the right groin Continue with empiric antibiotics given elevated procalcitonin I have personally spent 48 minutes of critical care time in the direct management of this patient. This is a life/limb threatening event. This includes time spent evaluating patient, direct bedside care, chart review, placing orders, interpretation of diagnostic studies, discussion with consultants, patient, and family members, as well as other required patient management activities. This time is exclusive of all separately billable procedures, and separate from and in addition to any other critical care service time. Thank you for allowing us to participate in the care of this patient. Please refer to my attending physician's documentation for any further recommendations. Admission and Anticipated Discharge Date Admission Date: August 28, 2024 Subjective Patient seen and examined at bedside. No acute distress, no adverse events overnight She was on 25 of fentanyl at the time of examination She was following commands, nodding her head no and yes on asking questions Denied any headache, no chest pain She was breathing over the vent. Review of Systems 2 Review of Systems: Unobtainable due to endotracheal tube Physical Exam 2 Physical Exam: Constitutional: No acute distress HEENT: PERRLA Respiratory system: Decreased air entry bilaterally, no wheeze, no rhonchi, positive crackles bilateral lower lobe CVS: S1-S2 positive, no murmurs or gallops Abdomen: Soft, nontender, nondistended, positive bowel sounds x4 Extremities: +2 pulses bilaterally radialis/ dorsalis pedis, no cyanosis, no edema Neuro: Breathing with the vent, RASS -1, answering questions by nodding the head Psych: Unable to assess G/U: Positive Stacy Skin: Patient has small skin ulcer at the site of right endarterectomy incision. There is no fluctuance, no rubor, no calor, no dolor Skin: no rashes, warm and dry Lymphatic: no cervical or axillary lymphadenopathy Results & Data Results & Data Vital Signs (Past 12 Hours) Vital Signs Temp Pulse Resp BP Pulse Ox O2 Del Method FiO2 08/30/24 08:15 91 H 18 100 30 08/30/24 08:12 37.2 C 87 17 100 08/30/24 08:00 119/08/30/24 08:00 119/08/30/24 08:00 30 08/30/24 08:00 89 08/30/24 07:57 37.2 C 88 18 100 08/30/24 07:51 37.2 C 92 H 18 91 08/30/24 07:33 37.2 C 89 18 100 08/30/24 07:30 Mechanical Vent 40 08/30/24 07:21 37.2 C 89 17 100 08/30/24 07:15 37.2 C 90 20 100 08/30/24 07:00 12508/30/24 07:00 08/30/24 07:00 08/30/24 07:00 08/30/24 07:00 37.2 C 89 20 100 08/30/24 06:57 37.2 C 91 H 19 100 08/30/24 06:54 37.2 C 89 21 100 08/30/24 06:48 37.2 C 90 20 100 08/30/24 06:09 37.1 C 89 17 100 08/30/24 06:00 125/76 08/30/24 06:00 125/08/30/24 06:00 125/08/30/24 06:00 37.1 C 90 18 100 08/30/24 05:54 37.1 C 88 17 100 08/30/24 05:42 37.0 C 90 18 100 08/30/24 05:36 37.0 C 91 H 18 100 08/30/24 05:33 37.0 C 90 20 100 08/30/24 05:21 37.0 C 90 19 100 08/30/24 05:18 37.0 C 92 H 18 100 08/30/24 05:00 37.0 C 89 22 100 08/30/24 04:45 36.9 C 91 H 17 100 08/30/24 04:42 36.9 C 90 17 100 08/30/24 04:39 36.9 C 90 19 100 08/30/24 04:21 36.5 C 95 H 18 98 08/30/24 04:21 97 H 19 96 30 08/30/24 04:00 30 08/30/24 03:51 36.9 C 92 H 22 97 08/30/24 03:27 37.0 C 88 18 98 08/30/24 03:15 37.0 C 86 20 98 08/30/24 03:00 37.0 C 89 23 97 08/30/24 02:57 37.0 C 88 20 97 08/30/24 02:51 37.0 C 90 19 98 08/30/24 02:45 37.0 C 91 H 19 97 08/30/24 02:36 37.0 C 89 20 98 08/30/24 02:27 37.0 C 89 19 100 08/30/24 02:09 37.0 C 90 19 99 08/30/24 02:00 127/71 08/30/24 02:00 127/08/30/24 02:00 37.1 C 89 19 100 08/30/24 01:48 37.1 C 91 H 19 100 08/30/24 01:36 37.1 C 76 20 100 08/30/24 01:30 37.1 C 90 19 100 08/30/24 01:03 37.1 C 91 H 18 99 01/04/25 01:00 138/79 08/30/24 01:00 138/79 08/30/24 00:51 37.1 C 92 H 18 99 08/30/24 00:45 37.1 C 92 H 18 99 08/30/24 00:10 91 H 19 99 30 08/30/24 00:03 37.2 C 92 H 18 99 08/30/24 00:00 136/73 08/30/24 00:00 136/73 08/30/24 00:00 30 08/30/24 00:00 90 08/29/24 23:48 37.2 C 90 19 98 08/29/24 23:36 37.2 C 91 H 18 99 08/29/24 23:33 37.2 C 90 19 99 08/29/24 23:27 37.2 C 92 H 18 98 08/29/24 23:24 Mechanical Vent 08/29/24 23:18 37.2 C 90 19 99 08/29/24 23:00 37.2 C 91 H 19 99 08/29/24 23:00 129/72 08/29/24 23:00 129/72 08/29/24 22:51 37.2 C 92 H 19 98 08/29/24 22:48 37.2 C 91 H 18 98 08/29/24 22:42 37.2 C 94 H 19 98 08/29/24 22:33 37.3 C 94 H 18 98 08/29/24 22:15 37.3 C 97 H 19 100 08/29/24 22:09 37.4 C 95 H 18 98 08/29/24 22:00 132/72 08/29/24 22:00 132/72 08/29/24 22:00 132/72 08/29/24 22:00 37.4 C 95 H 18 98 08/29/24 21:39 37.5 C 98 H 20 98 08/29/24 21:09 37.6 C H 96 H 20 98 08/29/24 21:00 139/75 08/29/24 21:00 139/75 08/29/24 20:57 37.6 C H 96 H 20 97 08/29/24 20:45 97 H 20 98 30 Laboratory Results 08/30/24 04:33 08/30/24 07:53 Coding Level of Care Code 03811 CRITICAL CARE 1ST 30-74M Diagnoses DKA (diabetic ketoacidosis) E13.11 Diabetes mellitus complication detail: with coma Diabetes mellitus type: other specified (including SHILPA) ARF (acute renal failure) N17.9 Encephalopathy G93.40 Shock R57.9 Metabolic acidosis E87.20 Mass in rectum K62.89 Peripheral arterial disease I73.9 Dyslipidemia E78.5 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
--- NOTE | 2024-08-30 08:53 | Nephrology Consultation ---
Date of Consultation August 30, 2024 Assessment & Plan (1) ARF (acute renal failure): * LIDIA due to profound dehydration and hypotension related to DKA. Urine microscopy reveals granular casts consistent with ATN * Patient is net 11 L volume positive due to aggressive volume resuscitation needed for DKA * CXR shows mild pulmonary vascular congestion, however, SaO2 96% on 30% FiO2 * BP has stabilized off Levophed therapy * Will provide low-dose loop diuretic to promote diuresis * Electrolyte balance is acceptable. No acute indication for hemodialysis at this time * Monitor BMP, UO * Baseline creatinine 0.8 * Consider renal ultrasound only if kidney function fails to stabilize (2) Shock: * Resolved * Blood culturesNGTD x 24 hours * Urine culturepending * On empiric Zosyn, daptomycin therapy (3) DKA (diabetic ketoacidosis): * Resolved (4) Mass in rectum: * Endoscopy with biopsy once stable History of Present Illness Reason for Consultation: LIDIA Attending Physician: Amy Schneider MD History of Present Illness Ms. Sorenson is a 63-year-old white female who is seen at the request of the [facility] critical care team for evaluation of LIDIA. Patient is currently sedated, mechanically ventilated in the ICU. She is unable to provide medical history. Information for the HPI is obtained from review of the EMR. HPI summarized as follows: Ms. Sorenson has not undergone nephrology evaluation in the past. Her baseline creatinine had been 0.8. 07/01/2024 urinalysis revealed trace blood but no protein. UACR was within normal limits at 15.8. Ms. Sorenson's medical history is significant for IDDM w/ history of DKA, hypothyroidism, PAD s/p R femoral endarterectomy. CT of the pelvis 07/19/2024 revealed abnormal anorectal wall thickening forming a masslike lesion which may be inflammatory or possible malignancy. In addition there was a liquefaction and cystic changes involving the right inguinal lymph nodes and an associated subcutaneous fistulous tract/scar. This too is suggestive of an inflammatory process. Ms. Sorenson was found down at home unresponsive. Patient's family had reported that she suffered nausea vomiting and diarrhea x 3 days. She had discontinued her insulin because she was unable to keep down solids or liquids. Ms. Sorenson was last seen by her family 72 hours prior to her admission. EMS was called. Patient was poorly responsive and hypotensive. She required BVM in the field. Upon arrival in the EMD she required intubation for stabilization of her airway. Initial laboratory studies revealed a potassium of 6, bicarbonate 5, creatinine 3.1, BSG 1264, lactate 5.1. Patient received 5 L IV crystalloid, IV bicarbonate and was started on insulin drip. She has been admitted to the ICU for management of DKA. Blood cultures are no growth to date. Urine culture is pending. Admission blood pressure was 60/40. Patient initially required Levophed. This has been tapered off following volume resuscitation. Patient is now oliguric (380 cc last 24 hours). Urine microscopy reveals granular casts c/w ATN. Allergies Allergy/AdvReac Type Severity Reaction Status Date / Time tetanus toxoid, adsorbed AdvReac Intermediate SWELLING Verified 08/15/24 13:04 AT SITE AND REDNESS Home Medications Medication Instructions Recorded Confirmed Type [facility] History Ultra Test strips) blood-glucose meter (OneTouch 09/04/22 08/28/24 History Ultra2 Meter) blood-glucose meter,continuous #1 ea 02/26/23 08/28/24 Rx (Dexcom G7 Reproductive Surgeon) pen needle, diabetic 32 gauge x #100 ea 02/26/23 08/28/24 Rx 5/16" (Comfort EZ Pen [place]) ibuprofen 200 mg tablet (Advil) 600 mg (3 x 200 mg) PO QID PRN 08/30/23 08/28/24 Rx fever or pain #30 tabs insulin syringe-needle U-100 0.3 #300 ea 02/08/24 08/28/24 Rx mL 31 gauge x 5/16" (BD Insulin Syringe Ultra-Fine) blood-glucose sensor (Dexcom G7 #9 ea 02/14/24 08/28/24 Rx Sensor device) furosemide 40 mg tablet (Lasix) 40 mg PO QAM 06/03/24 08/28/24 History glucagon 3 mg/actuation nasal spray 3 mg intranasal ONCE PRN 06/03/24 08/28/24 History Hypoglycemia oxycodone-acetaminophen 5 mg-325 1 - 2 tab PO Q6H PRN pain #20 tabs 06/06/24 08/28/24 Rx mg tablet (Percocet) insulin glargine 100 unit/mL (3 15 unit (0.15 mL) subcut BID #30 mL 07/23/24 08/28/24 Rx mL) subcutaneous pen (Lantus Solostar U-100 Insulin) levothyroxine 100 mcg tablet 100 mcg PO QAM #90 tabs 07/23/24 08/28/24 Rx rosuvastatin 40 mg tablet 40 mg PO QAM 07/31/24 08/28/24 History insulin aspart U-100 100 unit/mL See Rx Instructions .Route .COMPLEX 08/28/24 08/28/24 History subcutaneous solution Patient History Medical History Post op infection is using a silver coated strip for surgical site infection from the femoral endarterectomy. following with Dr. Fitzgerald's office. Rectal mass found in CT end of June 2024 - reason for upcoming procedure Hx of hypotension (01/2024) Hx of fall (02/04/24) no major injuries Dental caries pt. reports decayed teeth, needs dentures, not loose Sleep-disordered breathing denies sleep study- sister told pt. 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 dickerson - states his PA did not hear a cardiac murmur (05/14/24) Sensory neuropathy feet 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) hx-right foot Lower extremity edema hx - swelling has been much better since starting lasix Shoulder pain left, r/t arthritis Peripheral arterial disease Hx of angiography 06/2023, [facility], bilateral and abdominal aortogram Hyperlipidemia Hypothyroidism Surgical History History of endarterectomy (05/2024) right femoral endarterectomy History of cholecystectomy (1988) during hyster History of appendectomy (1988) during hyster History of tooth extraction History of cataract surgery (02/2024) rt/left History of partial amputation of toe of right foot (07/2023) pt. reports clipping toe nails and accidentally removing entire toe nail, which lead to infection History of carpal tunnel release (08/2023) left Hx of colonoscopy History of tonsillectomy and adenoidectomy (1972) initial sx age 2, revision age 12 Hx of total hysterectomy with removal of both tubes and ovaries at age 28, also removed gallbladder and appendix at same time Family History Mother Myocardial infarction Other No family history of adverse response to anesthesia Denies family history of Ovarian cancer Prostate cancer Breast cancer Colorectal cancer Social History Smoking Status: Never smoker Second Hand Exposure: Yes; Do You Dip or Chew Tobacco: No; Hx Alcohol Use: Yes Alcohol type: beer Alcohol Intake Frequency: Monthly or Less Hx Substance Use: No Preferred Language: Bolivian Communication Ability: Impaired Visual Impairment: No Limitations Hearing Ability: Normal Huc Ob Required: No Beliefs That Will Affect Care: None marital status: Single Current Living Situation: Family Current Living Situation Comment: lives with sister's family current occupational status: retired Other Information That Helps Us Care for You: No Feels Safe at Home: Yes Childhood Exposure to Second-Hand Smoke: Yes Diet: low carbohydrate caffeine: Yes during the past year weight has: remained stable Dental Care, Regularly: No Physical Activity Frequency: 5-6 Times per Week Seatbelt Use: always Sunscreen Use: No Assistive Devices: None Review of Systems Review of Systems: Unobtainable due to endotracheal tube Physical Exam Constitutional: + ill appearing Eyes: PERRL, conjunctivae normal, anicteric sclerae ENMT: Orotracheal intubation Neck: trachea midline, no thyromegaly Respiratory: Coarse breath sounds bilaterally Cardiovascular: Rate/Rhythm: regular rate and regular rhythm Gastrointestinal (Abdomen): Inspection/Auscultation: + hypoactive bowel sounds Percussion/Palpation: abdomen soft Skin: Trace dependent edema Neurologic: Sedated Results & Data Vital Signs (Past 12 Hours) Vital Signs Temp Pulse Resp BP Pulse Ox O2 Del Method FiO2 08/30/24 08:15 91 H 18 100 30 08/30/24 08:12 37.2 C 87 17 100 08/30/24 08:00 119/77 08/30/24 08:00 119/77 08/30/24 08:00 30 08/30/24 08:00 89 08/30/24 07:57 37.2 C 88 18 100 08/30/24 07:51 37.2 C 92 H 18 91 08/30/24 07:33 37.2 C 89 18 100 08/30/24 07:30 Mechanical Vent 40 08/30/24 07:21 37.2 C 89 17 100 08/30/24 07:15 37.2 C 90 20 100 08/30/24 07:00 125/77 08/30/24 07:00 125/08/30/24 07:00 125/77 08/30/24 07:00 125/08/30/24 07:00 37.2 C 89 20 100 08/30/24 06:57 37.2 C 91 H 19 100 08/30/24 06:54 37.2 C 89 21 100 08/30/24 06:48 37.2 C 90 20 100 08/30/24 06:09 37.1 C 89 17 100 08/30/24 06:00 125/76 08/30/24 06:00 125/76 08/30/24 06:00 125/76 08/30/24 06:00 37.1 C 90 18 100 08/30/24 05:54 37.1 C 88 17 08/30/24 05:42 37.0 C 90 18 08/30/24 05:36 37.0 C 91 H 18 08/30/24 05:33 37.0 C 90 20 100 08/30/24 05:21 37.0 C 90 19 100 08/30/24 05:18 37.0 C 92 H 18 100 08/30/24 05:00 37.0 C 89 22 100 08/30/24 04:45 36.9 C 91 H 17 100 08/30/24 04:42 36.9 C 90 17 100 08/30/24 04:39 36.9 C 90 19 100 08/30/24 04:21 36.5 C 95 H 18 98 08/30/24 04:21 97 H 19 96 30 08/30/24 04:00 30 08/30/24 03:51 36.9 C 92 H 22 97 08/30/24 03:27 37.0 C 88 18 98 08/30/24 03:15 37.0 C 86 20 98 08/30/24 03:00 37.0 C 89 23 97 08/30/24 02:57 37.0 C 88 20 97 08/30/24 02:51 37.0 C 90 19 98 08/30/24 02:45 37.0 C 91 H 19 97 08/30/24 02:36 37.0 C 89 20 98 08/30/24 02:27 37.0 C 89 19 100 08/30/24 02:09 37.0 C 90 19 99 08/30/24 02:00 127/71 08/30/24 02:00 127/71 08/30/24 02:00 37.1 C 89 19 100 08/30/24 01:48 37.1 C 91 H 19 100 08/30/24 01:36 37.1 C 76 20 100 08/30/24 01:30 37.1 C 90 19 100 08/30/24 01:03 37.1 C 91 H 18 99 08/30/24 01:00 138/79 08/30/24 01:00 138/79 08/30/24 00:51 37.1 C 92 H 18 99 08/30/24 00:45 37.1 C 92 H 18 99 08/30/24 00:10 91 H 19 99 30 08/30/24 00:03 37.2 C 92 H 18 99 08/30/24 00:00 136/73 08/30/24 00:00 136/73 08/30/24 00:00 30 08/30/24 00:00 90 08/29/24 23:48 37.2 C 90 19 98 08/29/24 23:36 37.2 C 91 H 18 99 08/29/24 23:33 37.2 C 90 19 99 08/29/24 23:27 37.2 C 92 H 18 98 08/29/24 23:24 Mechanical Vent 08/29/24 23:18 37.2 C 90 19 99 08/29/24 23:00 37.2 C 91 H 19 99 08/29/24 23:00 129/72 08/29/24 23:00 129/72 08/29/24 22:51 37.2 C 92 H 19 98 08/29/24 22:48 37.2 C 91 H 18 98 08/29/24 22:42 37.2 C 94 H 19 98 08/29/24 22:33 37.3 C 94 H 18 98 08/29/24 22:15 37.3 C 97 H 19 100 08/29/24 22:09 37.4 C 95 H 18 98 08/29/24 22:00 132/72 08/29/24 22:00 132/72 08/29/24 22:00 132/72 08/29/24 22:00 37.4 C 95 H 18 98 08/29/24 21:39 37.5 C 98 H 20 98 08/29/24 21:09 37.6 C H 96 H 20 98 08/29/24 21:00 139/75 08/29/24 21:00 139/75 08/29/24 20:57 37.6 C H 96 H 20 97 Laboratory Results Laboratory Results WBC 16.99 K/ul (4.8-10.8) H 08/30/24 04:33 RBC 4.37 M/uL (4.20-5.40) 08/30/24 04:33 Hgb 13.2 g/dl (12.0-16.0) 08/30/24 04:33 POC Hgb 11.9 g/dl (12.0-16.0) L 08/29/24 21:53 Hct 36.1 % (37.0-47.0) L 08/30/24 04:33 POC Hct 35 % (37-47) L 08/29/24 21:53 MCV 82.6 fL (80.0-100.0) 08/30/24 04:33 MCH 30.2 pg (25.0-34.0) 08/30/24 04:33 MCHC 36.6 g/dL (32.0-36.0) H 08/30/24 04:33 RDW Std Deviation 40.1 fL (36.4-46.3) 08/30/24 04:33 RDW Coeff of Tressa 13.3 % (11.5-14.5) 08/30/24 04:33 Plt Count 111 K/uL (130-400) L 08/30/24 04:33 MPV 10.5 fL (9.4-12.4) 08/30/24 04:33 Immature Gran % (Auto) 1.2 % 08/30/24 04:33 Neut % (Auto) 82.3 % 08/30/24 04:33 Lymph % (Auto) 7.2 % 08/30/24 04:33 [place] % (Auto) 9.2 % 08/30/24 04:33 Eos % (Auto) 0.0 % 08/30/24 04:33 Baso % (Auto) 0.1 % 08/30/24 04:33 Neut # (Auto) 13.97 K/uL (1.40-6.50) H 08/30/24 04:33 Lymph # (Auto) 1.22 K/uL (1.20-3.40) 08/30/24 04:33 [place] # (Auto) 1.57 K/uL (0.11-0.59) H 08/30/24 04:33 Eos # (Auto) 0.00 K/uL (0.00-0.50) 08/30/24 04:33 Baso # (Auto) 0.02 K/uL (0.00-0.20) 08/30/24 04:33 Immature Gran # (Auto) 0.21 K/uL (0.01-0.20) H 08/30/24 04:33 Toxic Vacuolation 1+ 08/28/24 20:39 Polychromasia 1+ 08/28/24 20:39 Echinocytes 1+ 08/28/24 20:39 PT 11.7 Seconds (9.0-12.0) 08/30/24 04:33 INR 1.1 (0.9-1.1) 08/30/24 04:33 APTT 31 Seconds (21-31) 08/30/24 04:33 PTT Ratio 1.2 08/30/24 04:33 Specimen Type Arterial 08/29/24 21:53 Sample Site Art Line 08/29/24 21:53 POC pH 7.47 (7.35-7.45) H 08/29/24 21:53 POC pCO2 30 mmHg (35-46) L 08/29/24 21:53 POC pO2 79 mmHg (80-95) L 08/29/24 21:53 POC HCO3 22 opal/L (19-24) 08/29/24 21:53 POC Total CO2 23 mmol/L (24-31) L 08/29/24 21:53 POC Base Excess -2.0 opal/L (-9-1.8) 08/29/24 21:53 O2 Sat Pulse Oximetry 97 08/29/24 21:53 ABG pH (Temp Correct) 7.462 (7.35-7.45) H 08/29/24 21:53 ABG pCO2 (Temp Corrct 30 mmHg (35-46) L 08/29/24 21:53 POC ABG pO2 at Pt Temp 81 08/29/24 21:53 POC ABG O2 Sat 97.0 % (90-95) H 08/29/24 21:53 Morgan Test Pass 08/29/24 21:53 VBG pH 7.41 (7.36-7.41) 08/30/24 07:53 VBG pCO2 35 mmHg (38-50) L 08/30/24 07:53 VBG pO2 90 mmHg 08/30/24 07:53 VBG HCO3 22 mmol/L 08/30/24 07:53 VBG O2 Saturation 98.6 % 08/30/24 07:53 VBG Base Excess -1.8 mEq/L 08/30/24 07:53 O2 Delivery Device Ventilator 08/29/24 21:53 Vent Mode AC 08/29/24 21:53 POC FiO2 30 % 08/29/24 21:53 End Tidal CO2 28 08/29/24 21:53 POC Sodium 138 mmol/L (135-144) 08/29/24 21:53 Sodium 137 mmol/L (136-145) 08/30/24 07:53 POC Potassium 3.9 mmol/L (3.3-5.0) 08/29/24 21:53 Potassium 4.7 mmol/L (3.5-5.1) 08/30/24 07:53 POC Chloride 103 mmol/L (101-112) 08/28/24 19:44 Chloride 105 mmol/L (98-107) 08/30/24 07:53 Carbon Dioxide 23 mmol/L (21-32) 08/30/24 07:53 POC Total CO2 6 mmol/L (24-31) L* 08/28/24 19:44 Anion Gap 9 (3-11) 08/30/24 07:53 POC Anion Gap 28.0 mmol/L (16-25) H 08/28/24 19:44 POC BUN 93 mg/dl (7-18) H 08/28/24 19:44 BUN 86 mg/dl (6-23) H 08/30/24 07:53 Creatinine 4.15 mg/dl (0.6-1.2) H D 08/30/24 07:53 POC Creatinine 2.8 mg/dl (0.6-1.3) H 08/28/24 19:44 Est Cr Clr Drug Dosing 16.4 ml/min 08/30/24 07:53 eGFR 11.48 08/30/24 07:53 BUN/Creatinine Ratio 20.7 (10-20) H 08/30/24 07:53 Glucose 166 mg/dl (70-99(Fasting)) H 08/30/24 07:53 POC Glucose 188 mg/dl (70-99) H 08/30/24 08:30 POC Glucose (other) 167 mg/dl (70-99) H 08/29/24 21:43 Estimat Average Glucose 203 mg/dl 08/28/24 20:39 Hemoglobin A1c 8.7 % (4.5-5.6) H 08/28/24 20:39 Osmolality 390 mOsm/kg (280-300) H* 08/28/24 20:39 Lactate 4.8 mmol/L (0.4-2.0) H* 08/29/24 06:23 Calcium 7.1 mg/dl (8.6-10.3) L 08/30/24 07:53 POC Ioniz Calcium Aliya 1.01 mmol/l (1.12-1.32) L 08/28/24 19:44 Ionized Calcium 0.97 mmol/L (1.12-1.32) L 08/29/24 04:24 Phosphorus 2.3 mg/dl (2.5-4.9) L 08/30/24 07:53 Magnesium 2.0 mg/dl (1.7-2.4) 08/30/24 07:53 Total Bilirubin 0.6 mg/dl (0.2-1.0) 08/30/24 04:33 Direct Bilirubin 0.2 mg/dl (0-0.2) 08/28/24 19:40 AST 90 U/L (13-39) H 08/30/24 04:33 ALT 11 U/L (7-52) 08/30/24 04:33 Alkaline Phosphatase 60 U/L (34-104) 08/30/24 04:33 Troponin I High Sens 98.7 pg/ml (0-14) H* 08/28/24 22:47 Total Protein 4.4 gm/dl (6.0-8.3) L 08/30/24 04:33 Albumin 2.5 gm/dl (3.4-5.0) L 08/30/24 04:33 Globulin 1.9 gm/dl (2.5-4.0) L 08/30/24 04:33 Albumin/Globulin Ratio 1.3 (0.9-2) 08/30/24 04:33 Lipase 9 U/L (11-82) L 08/28/24 19:40 Procalcitonin 5.50 ng/ml (0-0.5) H 08/28/24 19:41 TSH 0.853 uIu/ml (0.300-4.500) 08/28/24 20:39 Urine Color [place] 08/29/24 Unknown Urine Appearance Cloudy (Clear) A 08/29/24 Unknown Urine pH 5.5 (4.5-7.5) 08/29/24 Unknown Ur Specific [place] 1.020 (1.000-1.030) 08/29/24 Unknown Urine Protein 3+ (Negative) H 08/29/24 Unknown Urine Glucose (UA) 3+ (Negative) H 08/29/24 Unknown Urine Ketones 1+ (Negative) H 08/29/24 Unknown Urine Blood 3+ (Negative) H 08/29/24 Unknown Urine Nitrite Negative (Negative) 08/29/24 Unknown Urine Bilirubin Negative (Negative) 08/29/24 Unknown Urine Urobilinogen Negative (Negative) 08/29/24 Unknown Ur Leukocyte Esterase Trace (Negative) H 08/29/24 Unknown Urine WBC (Auto) 11-20 /hpf (0-5) H 08/29/24 Unknown Urine RBC (Auto) 11-20 /hpf (0-2) H 08/29/24 Unknown U Hyaline Cast (Auto) 3-5 /lpf (0-2) H 08/29/24 Unknown U Epithel Cells (Auto) 0-2 /hpf (0-2) 08/29/24 Unknown Urine Bacteria (Auto) 2+ (None Seen) H 08/29/24 Unknown Amorphous Sediment Present (None Prsent) A 08/28/24 20:35 Granular Casts Present /lpf (None Prsent) A 08/29/24 Unknown Urine Osmolality 379 mOsm/kg (500-800) L 08/29/24 Unknown Ur Random Creatinine 38.9 mg/dl 08/29/24 Unknown Ur Random Sodium 57 mmol/L 08/29/24 Unknown Ur Random Potassium 30.8 mmol/L 08/29/24 Unknown Ur Random Chloride 45 mmol/L 08/29/24 Unknown Nasal Screen MRSA (PCR) Negative (Negative) 08/28/24 23:30 Urine Opiates Screen Neg (Neg) 08/28/24 20:35 Ur Methadone, Qual Neg (Neg) 08/28/24 20:35 Urine Fentanyl Screen Neg (Neg) 08/28/24 20:35 Urine Barbiturates Neg (Neg) 08/28/24 20:35 Ur Phencyclidine (PCP) Neg (Neg) 08/28/24 20:35 U Amphetamin/Meth Scrn Neg (Neg) 08/28/24 20:35 MDMA (Ecstasy) Screen Neg (Neg) 08/28/24 20:35 U Benzodiazepines Scrn Neg (Neg) 08/28/24 20:35 Ur Cocaine Metabolite Neg (Neg) 08/28/24 20:35 U Marijuana (THC) Screen Neg (Neg) 08/28/24 20:[address] 08/28/24 18:31 Exam(s): CT HEAD Without Contrast EXAM: CT Head Without Intravenous Contrast CLINICAL HISTORY: Reason for exam: ams. TECHNIQUE: Axial computed tomography images of the head/brain without intravenous contrast. CTDI is 63.9 mGy and DLP is mGy-cm. Automated exposure control was utilized for the study. A dose lowering technique was utilized adhering to the principles of ALARA. COMPARISON: 02/23/24 FINDINGS: Brain: No intracranial hemorrhage. Senescent changes. No apparent acute cortical infarct. No midline shift. Ventricles: No hydrocephalus. Bones/joints: No acute fracture. Soft tissues: Unremarkable. Sinuses: Minimal sinus mucosal thickening. Mastoid air cells: No mastoid effusion. Orbits: Exophthalmos and bilateral cataract surgery. Endotracheal tube. IMPRESSION: No intracranial hemorrhage. Senescent changes. Electronically signed by: Agustin Waggoner M.D. 08/28/24 20:33 PM Chest X-Ray 08/30/24 06:00 XR chest 1V portable CLINICAL HISTORY: eval lines/tubes/lung de [place] COMPARISON STUDY: Chest radiograph August 28, 2024. FINDINGS: Tip of endotracheal tube is 2.2 cm above the muna. Tip of nasogastric tube is below the lower aspect of this image but at least within the mid body of the stomach. Right internal jugular central line remains in place. There is no pneumothorax. Low lung volumes are unchanged. Interstitial thickening has mildly progressed. There are small bilateral pleural effusions associated bibasilar opacities. These have slightly progressed. IMPRESSION: 1. Satisfactory positioning of lines and tubes. 2. No pneumothorax. 3. Mild progression of pulmonary edema. 4. Small bilateral pleural effusions with associated bibasilar opacities which could reflect atelectasis or pneumonia. These have progressed. ACT 112: Negative or not required by law. Electronically signed by: Navjot Live M.D. 08/30/2024 8:29 AM PG Care Time/CCT Total # of Minutes Spent Total Time Spent with Patient: Total time spent is greater than 50% in coordination of care (as documented) at patient's floor/unit and/or counseling patient: Coding Level of Care Code 32256 IN/OBS CONSULT LVL 5,80M Diagnoses ARF (acute renal failure) N17.9 Shock R57.9 DKA (diabetic ketoacidosis) E13.11 Diabetes mellitus complication detail: with coma Diabetes mellitus type: other specified (including SHILPA) Mass in rectum K62.89 (3) DKA (diabetic ketoacidosis) Diabetes mellitus complication detail: with coma Diabetes mellitus type: other specified (including SHILPA) Qualified Code(s): E13.11 - Other specified diabetes mellitus with ketoacidosis with coma
[2024-08-30] MEDS ORDERED: LIDOCAINE 2% 20 MG/ML 5 ML SYR IV ONE (09:27)
[2024-08-30] MEDS ORDERED: ETOMIDATE 2 MG/ML 20 ML VIAL IV ONE (09:27)
[2024-08-30] MEDS ORDERED: ROCURONIUM BROMIDE 10 MG/ML 5 ML VIAL IV ONE (09:27)
[2024-08-30] MEDS: LANTUS PER UNIT CHARGE SC STA (11:12)
[2024-08-30] MEDS: INSULIN ASPART PER UNIT CHARGE SC SCH (12:25)
[2024-08-30] MEDS: FUROSEMIDE 40 MG/4 ML VIAL IV ONE (12:27)
[2024-08-30] MEDS ORDERED: STAT IV Infusion **Titration per Protocol STA ×2 (16:58→19:37)
[2024-08-30] MEDS: dexMEDEtomidine 200 MCG/50 ML BAG IV SCH (17:08)
--- NOTE | 2024-08-30 18:38 | Procedure Note ---
Procedure Note Date of Service August 30, 2024 INTUBATION PROCEDURE NOTE: Attending: Dr Issac Perez MD Patient was evaluated and plan to intubate was made for ventilatory failure. Sedative agent used: Etomidate 20 mg, lidocaine 100 mg Paralysis agent used: 160 mg of etomidate Emergent consent was implied given patients rapidly declining clinical status and need for airway protection. The patient was prepared in the appropriate fashion. The patient was easily pre-oxygenated by using [id number] ventilation. With help of CMAC grade 2 vocal cords were visualized and 7 [place] ETT was introduced on first attempt to 23 cm at the lip. The stylette was removed and balloon was inflated with 10mL of air. Appropriate Colorimetric change was appreciated for at least 10 breaths. Bilateral chest rise and breath sounds were appreciated without air sounds in the epigastrium. Patient tolerated the procedure well and there were no immediate complications. Chest Xray to follow for confirming placement. [facility] Procedure Codes (Charges) Resuscitation Resuscitation: 61121 Endotracheal Intubation, emergency Coding CPT Codes Resuscitation - Resuscitation: 84142 Endotracheal Intubation, emergency ([id number]) Additional Codes Date of Service (PG.SURGERY)
--- NOTE | 2024-08-30 18:51 | XRay Report ---
Chest radiograph, one view History: Intubated Comparison: 08/28/2024 Findings: Single AP view of the chest performed. The endotracheal tube tip is now 3.3 cm above the muna. Right IJ central venous catheter tip is at the low SVC. There is loss of distinction of the costophrenic angle bilaterally, as may be seen with pleural effusions. No pneumothorax. The cardiomediastinal silhouette is within normal limits. Normal pulmonary vascularity. No evidence for lymphadenopathy. No visualized bony or soft tissue abnormality. Impression: ET tube as above. Possible pleural effusions are now present. Electronically signed by Haja Palomo 08-30-2024 6:50 PM
[2024-08-30] MEDS: fentaNYL citrate 2,500 MCG/250 ML BAG IV SCH (19:30)
[2024-08-30 19:31] LABS: Albumin Globulin Ratio 1.2 (0.9-2); Albumin Level 2.6 gm/dl (3.4-5.0); BUN Creatinine Ratio 18.4 (10-20); Bilirubin,Total 0.6 mg/dl (0.2-1.0); Calcium 7.3 mg/dl (8.6-10.3); Creatinine Clr Calc Pharmacy 14.4 ml/min; Globulin 2.2 gm/dl (2.5-4.0); Potassium 5.1 mmol/L (3.5-5.1); Total Protein 4.8 gm/dl (6.0-8.3)
[2024-08-30 19:31] LABS: iSTAT Art Bld Gas pCO2 Correct 34 mmHg (35-46); iSTAT Art Bld Gas pH Corrected 7.346 (7.35-7.45); iSTAT Arterial Blood Gas HCO3 18 meg/L (19-24); iSTAT Arterial Blood Gas pCO2 33 mmHg (35-46); iSTAT Arterial Blood Gas pH 7.35 (7.35-7.45); iSTAT Arterial Blood Gas pO2 64 mmHg (80-95); iSTAT Arterial Blood Gas pO2 C 66; iSTAT Carbon Dioxide 19 mmol/L (24-31); iSTAT FiO2 50 %; iSTAT Hematocrit 39 % (37-47); iSTAT Hemoglobin 13.3 g/dl (12.0-16.0); iSTAT Potassium 5.3 mmol/L (3.3-5.0); iSTAT Sample Type Arterial; iSTAT Site Art Line; iSTAT Sodium 136 mmol/L (135-144); iSTAT SpO2 96
[2024-08-30] MEDS: RAPID SEQUENCE INDUCTION BAG ONE (19:50)
[2024-08-30] MEDS: PIPERACILLIN/TAZOBACTAM 4.5 GM/100 ML BAG IV SCH (20:07)
[2024-08-31 05:23] LABS: Albumin Globulin Ratio 1.1 (0.9-2); Albumin Level 2.6 gm/dl (3.4-5.0); BUN Creatinine Ratio 19.6 (10-20); Bilirubin,Total 0.6 mg/dl (0.2-1.0); Calcium 7.5 mg/dl (8.6-10.3); Creatinine Clr Calc Pharmacy 13.3 ml/min; Globulin 2.3 gm/dl (2.5-4.0); Magnesium 2.2 mg/dl (1.7-2.4); Potassium 4.7 mmol/L (3.5-5.1); Total Protein 4.9 gm/dl (6.0-8.3)
[2024-08-31 05:51] LABS: Hematocrit (blood only) 36.2 % (37.0-47.0); Hemoglobin 12.8 g/dl (12.0-16.0); Mean Corpuscular Hemoglobin 30.1 pg (25.0-34.0); Mean Corpuscular Hgb Conc 35.4 g/dL (32.0-36.0); Mean Corpuscular Volume 85.2 fL (80.0-100.0); Mean Platelet Volume 10.3 fL (9.4-12.4); Platelet Count 98 K/uL (130-400); RDW Coefficient of Variation 13.9 % (11.5-14.5); RDW Standard Deviation 43.3 fL (36.4-46.3); Red Blood Count 4.25 M/uL (4.20-5.40); White Blood Count 18.52 K/ul (4.8-10.8)
[2024-08-31 05:58] LABS: Basophils # (auto) 0.04 K/uL (0.00-0.20); Basophils % (auto) 0.2 %; Echinocytes 1+; Eosinophils # (auto) 0.37 K/uL (0.00-0.50); Immature Granulocytes # (auto) 0.17 K/uL (0.01-0.20); Immature Granulocytes % (auto) 0.9 %; Lymphocytes # (auto) 1.77 K/uL (1.20-3.40); Lymphocytes % (auto) 9.6 %; Monocytes # (auto) 1.23 K/uL (0.11-0.59); Monocytes % (auto) 6.6 %; Neutrophils # (auto) 14.94 K/uL (1.40-6.50); Neutrophils % (auto) 80.7 %; Platelet Estimate Decreased (Normal); Polychromasia 1+
[2024-08-31 06:41] LABS: INR 1.1 (0.9-1.1); Partial Thromboplastin Ratio 1.3; Partial Thromboplastin Time 36 Seconds (21-31)
--- NOTE | 2024-08-31 07:29 | XRay Report ---
EXAM: XR chest 1V portable CLINICAL HISTORY: EVALUATE LINES/TUBES/ LUNG FIELD WHILE INTUBATED. TECHNIQUE: An X-ray image of the chest is obtained in 1 view: AP projection. COMPARISON: Prior X-ray study dated 08/30/2024. FINDINGS: Endotracheal tube is seen with its tip 5 cm from the muna. Stationary position of right CVL and NG tube. Pulmonary Parenchyma: Stationary bilateral basal diffuse opacities, obliterated costophrenic angles, prominent broncho vascular markings, and hilar vascularity, suggesting pulmonary congestion with pleural effusion. Heart and Mediastinum: Heart size and shape are normal. No mediastinal widening or masses. No hilar or mediastinal lymphadenopathy. Bony Thorax: Bony thorax appears intact without fractures or deformities. Soft Tissues: Soft tissues overlying the chest wall are unremarkable. IMPRESSION: 1. Endotracheal tube seen with its tip 5cm from muna. 2. Stationary position of right CVL and NG tube. 3. Stationary bilateral basal diffuse opacities, obliterated costophrenic angles, prominent broncho vascular marking,s and hilar vascularity, suggesting pulmonary congestion with pleural effusion. Electronically signed by Annamaria Murcia 08-31-2024 07:29 AM
[2024-08-31] MEDS: PANTOprazole 40 MG/10 ML SYR IV SCH (07:58)
--- NOTE | 2024-08-31 08:34 | Critical Care Progress Note ---
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 Currently requiring escalating dose of vasopressors and acid base support as well as insulin infusion. Neuro - Encephalopathy, Sedation for mechanical ventilation CAM ICU: Unable to assess - Metabolic encephalopathy- at this time multifactorial to include severely elevated glucose, severe acidemia, and with hypotension - concerning for cerebral injury with unknown time of unresponsiveness/coma in setting of above - Head CT negative for bleed or mass effect - Sedation with Fentanyl at this time Cardiac - Shock, PAD, elevated HsCTNI -- S/p shock Multifactorial- sepsis and hypovolemia combination is likely in setting of severe DKA - sources- intraabdominal vs. skin from previous endarterectomy site vs other -- PAD- stable chronic --Elevated troponin- Likely demand in setting of shock- no ST elevations on ECG Continue to trend Respiratory - Intubated and mechanically ventilated secondary to encephalopathy -- VDRF Secondary to airway protection Was extubated on 08/30/2024 but needed to be reintubated because of increased respiratory rate and ventilatory failure on the same evening of 08/30/2024 GI - GERD, ? colon mass --GERD Continue with PPI --Questionable colonic mass Reportedly had colonoscopy scheduled for 08/29/24- this will likely need to be rescheduled until she is more stable at this time- should warrant discussion with GI on follow on care RENAL/LYTES - ARF, AGAP Metabolic Acidosis, electrolyte disturbances -- Acute renal failure Oliguric, baseline [employer]ER most recently of 0.86 Likely prerenal, cannot rule out ATN given the shock continue with isotonic bicarb as maintenance Monitor BUN/creatinine Avoid nephrotoxic medications Strict ins and outs -At the time of presentation, serum osmo 390- GAP 28- osmolar gap 36- in setting of DKA and renal failure- no history of ETOH use - Tox screen negative - No acute needs Continue with [facility] ENDO - DKA, Hypothyroidism -- S/p DKA -Initial presentation with PH <7, Glucose >1K, HCO3 4, ketones in urine- severe acidosis and elevated glucose At high risk for cerebral edema with glucose levels and hypovolemic state -- Hypothyroidism TSH 0.85 Will give IV levothyroxine while intubated HEME - No acute needs -- New onset thrombocytopenia Could be from sepsis 4T score is only 2 which puts her at low probability Continue to monitor ID - Septic Shock - At this time unable to rule out infection as cause- Does have leukocytosis- which may also be hemoconcentrated Procalcitonin 5.5 -Urine on 08/29/2024 was dirty, culture negative - MRSA swab negative - Surgical site has small open area however without surrounding erythema or drainage - Blood cultures x2 negative to date Continue with empiric antibiotics for the time being --DNR Okay for vasopressors --Prophylaxis VTE: Heparin hold GI: Pantoprazole Lines: Right radial, right IJ Diet: Tube feeds Plan: In/out: +378 mL, urine output 620 mL,patient is +10 L since coming to the hospital Unfortunately patient is not making urine. Her creatinine is going up to 5. There is still no acute indication for dialysis given the electrolytes are reasonable. But if she does not make any urine and then she will probably need dialysis catheter to be placed in the next day or 2. I will give her Bumex push today. Case was discussed with nephrology Thrombocytopenia is getting worse, platelets today are only 98,4T score is only 2 which gives low probability. Will hold heparin Start the patient on tube feeds Complete 5 days course of Zosyn given the elevated procalcitonin at the time of presentation I have personally spent 38 minutes of critical care time in the direct management of this patient. This is a life/limb threatening event. This includes time spent evaluating patient, direct bedside care, chart review, placing orders, interpretation of diagnostic studies, discussion with consultants, patient, and family members, as well as other required patient management activities. This time is exclusive of all separately billable procedures, and separate from and in addition to any other critical care service time. Thank you for allowing us to participate in the care of this patient. Please refer to my attending physician's documentation for any further recommendations. Admission and Anticipated Discharge Date Admission Date: August 28, 2024 Subjective Patient seen and examined at bedside. No acute distress, no adverse events overnight She was on fentanyl at 50 the time of examination Systolic blood pressure was in the 160s. She was RASS -1--2, denied any headache. She does move her extremities spontaneously and to command. She does seem to be weak Review of Systems 2 Review of Systems: All systems reviewed & are unremarkable except as noted in Subjective Physical Exam 2 Physical Exam: Constitutional: No acute distress HEENT: PERRLA Respiratory system: Decreased air entry bilaterally, no wheeze, no rhonchi, positive crackles bilateral lower lobe CVS: S1-S2 positive, no murmurs or gallops Abdomen: Soft, nontender, nondistended, positive bowel sounds x4 Extremities: +2 pulses bilaterally radialis/ dorsalis pedis, no cyanosis, no edema Neuro: Breathing with the vent, RASS -1, answering questions by nodding the head Psych: Unable to assess G/U: Positive Stacy Skin: Patient has small skin ulcer at the site of right endarterectomy incision. There is no fluctuance, no rubor, no calor, no dolor Skin: no rashes, warm and dry Lymphatic: no cervical or axillary lymphadenopathy Results & Data Results & Data Vital Signs (Past 12 Hours) Vital Signs Temp Pulse Pulse Resp BP Pulse Ox O2 Del Method 08/31/24 07:50 133/72 08/31/24 07:25 129/74 08/31/24 07:23 84 19 98 08/31/24 07:20 124/68 08/31/24 07:20 124/68 08/31/24 07:10 130/81 08/31/24 07:10 130/81 08/31/24 07:05 135/74 08/31/24 06:56 37.0 C 85 20 96 08/31/24 06:55 126/76 08/31/24 06:53 37.0 C 83 20 96 08/31/24 06:50 37.0 C 85 20 97 08/31/24 06:50 154/95 H 08/31/24 06:50 154/95 H 08/31/24 06:47 37.0 C 86 20 98 08/31/24 06:45 136/78 08/31/24 06:44 37.0 C 85 20 98 08/31/24 06:41 37.0 C 85 20 98 08/31/24 06:40 136/74 08/31/24 06:40 136/74 08/31/24 06:38 37.0 C 85 20 97 08/31/24 05:50 37.0 C 84 20 97 08/31/24 05:50 124/70 08/31/24 05:47 37.0 C 84 20 97 08/31/24 05:45 122/72 08/31/24 05:45 122/72 08/31/24 05:45 122/72 08/31/24 05:40 138/74 08/31/24 05:40 138/74 08/31/24 05:38 37.0 C 68 20 98 08/31/24 05:35 128/73 08/31/24 05:35 128/73 08/31/24 05:26 37.1 C 86 20 97 08/31/24 05:25 134/73 08/31/24 05:25 134/73 08/31/24 05:15 133/74 08/31/24 05:12 37.2 C 86 20 97 08/31/24 05:10 138/79 08/31/24 05:05 134/74 08/31/24 05:05 134/74 08/31/24 05:00 129/73 08/31/24 04:46 169/91 H 08/31/24 04:46 169/91 H 08/31/24 04:45 37.2 C 93 H 21 100 08/31/24 04:31 102/80 08/31/24 04:31 102/80 08/31/24 04:30 37.3 C 92 H 19 95 08/31/24 04:25 145/86 H 08/31/24 04:20 131/76 08/31/24 04:15 37.3 C 89 20 98 08/31/24 04:15 125/73 08/31/24 04:10 124/69 08/31/24 04:10 124/69 08/31/24 04:10 124/69 08/31/24 04:10 124/69 08/31/24 04:00 37.3 C 92 H 20 97 08/31/24 04:00 132/72 08/31/24 03:55 133/77 08/31/24 03:55 133/77 08/31/24 03:55 133/77 08/31/24 03:50 122/75 08/31/24 03:50 122/75 08/31/24 03:45 37.4 C 90 20 97 08/31/24 03:45 125/74 08/31/24 03:45 125/74 08/31/24 03:45 125/74 08/31/24 03:40 127/73 08/31/24 03:33 37.4 C 91 H 20 97 Mechanical Vent 08/31/24 03:30 126/71 08/31/24 03:30 126/71 08/31/24 03:27 37.4 C 91 H 20 96 08/31/24 03:25 110/69 08/31/24 03:25 110/69 08/31/24 03:25 110/69 08/31/24 03:20 122/72 08/31/24 03:20 122/72 08/31/24 03:12 37.4 C 91 H 20 97 08/31/24 03:10 118/72 08/31/24 03:09 37.4 C 91 H 20 97 08/31/24 03:05 118/73 08/31/24 03:05 118/73 08/31/24 02:55 128/72 08/31/24 02:55 128/72 08/31/24 02:50 123/78 08/31/24 02:49 91 H 21 96 08/31/24 02:45 133/76 08/31/24 02:40 132/80 08/31/24 02:40 132/80 08/31/24 02:39 37.4 C 95 H 20 96 08/31/24 02:38 08/31/24 02:35 134/68 08/31/24 02:35 134/68 08/31/24 02:30 125/78 08/31/24 01:25 134/76 08/31/24 01:20 138/81 08/31/24 01:12 37.4 C 86 20 98 08/31/24 01:10 133/76 08/31/24 01:10 133/76 08/31/24 01:10 133/76 08/31/24 01:10 133/76 08/31/24 01:00 135/86 08/31/24 00:55 128/77 08/31/24 00:51 37.5 C 87 20 99 08/31/24 00:50 128/77 08/31/24 00:50 128/77 08/31/24 00:50 128/77 08/31/24 00:50 128/77 08/31/24 00:48 37.5 C 87 20 98 08/31/24 00:45 37.5 C 89 20 98 08/31/24 00:45 115/72 08/31/24 00:45 115/72 08/31/24 00:45 115/72 08/31/24 00:40 115/68 08/31/24 00:39 37.5 C 88 20 96 08/31/24 00:35 150/84 H 08/31/24 00:35 150/84 H 08/31/24 00:33 37.5 C 93 H 20 96 08/31/24 00:30 37.5 C 87 20 97 08/31/24 00:30 141/79 H 08/31/24 00:30 141/79 H 08/31/24 00:30 141/79 H 08/31/24 00:20 126/75 08/31/24 00:20 126/75 08/31/24 00:18 37.6 C H 89 20 96 08/31/24 00:15 140/80 08/31/24 00:10 139/83 08/31/24 00:09 37.6 C H 86 20 97 08/31/24 00:05 133/77 08/31/24 00:05 133/77 08/31/24 00:00 131/79 08/30/24 23:57 37.6 C H 88 20 96 08/30/24 23:55 126/76 08/30/24 23:55 126/76 08/30/24 23:45 124/76 08/30/24 23:45 37.6 C H 90 20 96 08/30/24 23:40 141/81 H 08/30/24 23:39 37.6 C H 88 20 97 08/30/24 23:35 149/81 H 08/30/24 23:35 149/81 H 08/30/24 23:33 37.6 C H 89 20 97 08/30/24 23:30 139/82 08/30/24 23:30 139/82 08/30/24 23:30 37.6 C H 89 20 97 08/30/24 23:25 88 20 94 High Flow Nasal Cannula 08/30/24 23:24 91 H 08/30/24 23:04 91 H 20 96 08/30/24 22:59 Mechanical Vent 08/30/24 22:50 139/84 08/30/24 22:40 120/73 08/30/24 22:38 08/30/24 22:09 37.6 C H 90 20 100 08/30/24 22:05 109/69 08/30/24 22:05 109/69 08/30/24 22:05 109/69 08/30/24 22:00 37.6 C H 91 H 20 100 08/30/24 22:00 114/72 08/30/24 22:00 114/72 08/30/24 21:55 114/75 08/30/24 21:55 114/75 08/30/24 21:55 114/75 08/30/24 21:48 37.6 C H 93 H 20 99 08/30/24 21:45 112/65 Mechanical Vent 08/30/24 21:45 112/65 08/30/24 21:45 112/65 08/30/24 21:40 110/67 08/30/24 21:39 37.5 C 94 H 18 98 08/30/24 21:35 122/73 08/30/24 21:35 122/73 08/30/24 21:30 118/71 08/30/24 21:30 118/71 08/30/24 21:21 37.5 C 92 H 22 98 08/30/24 21:20 119/69 08/30/24 21:20 119/69 08/30/24 21:15 37.5 C 93 H 22 98 08/30/24 21:15 118/75 08/30/24 21:10 125/80 08/30/24 21:09 37.4 C 93 H 20 98 08/30/24 21:05 119/81 08/30/24 21:05 119/81 08/30/24 21:05 119/81 08/30/24 21:05 119/81 08/30/24 21:00 116/71 01/04/25 20:57 37.4 C 88 21 99 08/30/24 20:55 123/72 08/30/24 20:54 37.4 C 94 H 20 98 08/30/24 20:51 117/70 08/30/24 20:51 117/70 08/30/24 20:51 37.4 C 91 H 20 98 08/30/24 20:39 37.4 C 91 H 21 98 08/30/24 20:35 144/77 H 08/30/24 20:35 144/77 H 08/30/24 20:35 144/77 H O2 Flow Rate FiO2 08/31/24 07:50 08/31/24 07:25 08/31/24 07:23 45 08/31/24 07:20 08/31/24 07:20 08/31/24 07:10 08/31/24 07:10 08/31/24 07:05 08/31/24 06:56 08/31/24 06:55 08/31/24 06:53 08/31/24 06:50 08/31/24 06:50 08/31/24 06:50 08/31/24 06:47 08/31/24 06:45 08/31/24 06:44 08/31/24 06:41 08/31/24 06:40 08/31/24 06:40 08/31/24 06:38 08/31/24 05:50 08/31/24 05:50 08/31/24 05:47 08/31/24 05:45 08/31/24 05:45 08/31/24 05:45 08/31/24 05:40 08/31/24 05:40 08/31/24 05:38 08/31/24 05:35 08/31/24 05:35 08/31/24 05:26 08/31/24 05:25 08/31/24 05:25 08/31/24 05:15 08/31/24 05:12 08/31/24 05:10 08/31/24 05:05 08/31/24 05:05 08/31/24 05:00 08/31/24 04:46 08/31/24 04:46 08/31/24 04:45 08/31/24 04:31 08/31/24 04:31 08/31/24 04:30 08/31/24 04:25 08/31/24 04:20 08/31/24 04:15 08/31/24 04:15 08/31/24 04:10 08/31/24 04:10 08/31/24 04:10 08/31/24 04:10 08/31/24 04:00 08/31/24 04:00 08/31/24 03:55 08/31/24 03:55 08/31/24 03:55 08/31/24 03:50 08/31/24 03:50 08/31/24 03:45 08/31/24 03:45 08/31/24 03:45 08/31/24 03:45 08/31/24 03:40 08/31/24 03:33 50 08/31/24 03:30 08/31/24 03:30 08/31/24 03:27 08/31/24 03:25 08/31/24 03:25 08/31/24 03:25 08/31/24 03:20 08/31/24 03:20 08/31/24 03:12 08/31/24 03:10 08/31/24 03:09 08/31/24 03:05 08/31/24 03:05 08/31/24 02:55 08/31/24 02:55 08/31/24 02:50 08/31/24 02:49 50 08/31/24 02:45 08/31/24 02:40 08/31/24 02:40 08/31/24 02:39 08/31/24 02:38 50 08/31/24 02:35 08/31/24 02:35 08/31/24 02:30 08/31/24 01:25 08/31/24 01:20 08/31/24 01:12 08/31/24 01:10 08/31/24 01:10 08/31/24 01:10 08/31/24 01:10 08/31/24 01:00 08/31/24 00:55 08/31/24 00:51 08/31/24 00:50 08/31/24 00:50 08/31/24 00:50 08/31/24 00:50 08/31/24 00:48 08/31/24 00:45 08/31/24 00:45 08/31/24 00:45 08/31/24 00:45 08/31/24 00:40 08/31/24 00:39 08/31/24 00:35 08/31/24 00:35 08/31/24 00:33 08/31/24 00:30 08/31/24 00:30 08/31/24 00:30 08/31/24 00:30 08/31/24 00:20 08/31/24 00:20 08/31/24 00:18 08/31/24 00:15 08/31/24 00:10 08/31/24 00:09 08/31/24 00:05 08/31/24 00:05 08/31/24 00:00 08/30/24 23:57 08/30/24 23:55 08/30/24 23:55 08/30/24 23:45 08/30/24 23:45 08/30/24 23:40 08/30/24 23:39 08/30/24 23:35 08/30/24 23:35 08/30/24 23:33 08/30/24 23:30 08/30/24 23:30 08/30/24 23:30 08/30/24 23:25 30 40 08/30/24 23:24 08/30/24 23:04 50 08/30/24 22:59 50 08/30/24 22:50 08/30/24 22:40 08/30/24 22:38 50 08/30/24 22:09 08/30/24 22:05 08/30/24 22:05 08/30/24 22:05 08/30/24 22:00 08/30/24 22:00 08/30/24 22:00 08/30/24 21:55 08/30/24 21:55 08/30/24 21:55 08/30/24 21:48 08/30/24 21:45 50 08/30/24 21:45 08/30/24 21:45 08/30/24 21:40 08/30/24 21:39 08/30/24 21:35 08/30/24 21:35 08/30/24 21:30 08/30/24 21:30 08/30/24 21:21 08/30/24 21:20 08/30/24 21:20 08/30/24 21:15 08/30/24 21:15 08/30/24 21:10 08/30/24 21:09 08/30/24 21:05 08/30/24 21:05 08/30/24 21:05 08/30/24 21:05 08/30/24 21:00 08/30/24 20:57 08/30/24 20:55 08/30/24 20:54 08/30/24 20:51 08/30/24 20:51 08/30/24 20:51 08/30/24 20:39 08/30/24 20:35 08/30/24 20:35 08/30/24 20:35 Laboratory Results 08/31/24 04:04 08/31/24 04:04 Coding Level of Care Code 77259 CRITICAL CARE 1ST 30-74M Diagnoses DKA (diabetic ketoacidosis) E13.11 Diabetes mellitus complication detail: with coma Diabetes mellitus type: other specified (including SHILPA) ARF (acute renal failure) N17.9 Encephalopathy G93.40 Shock R57.9 Metabolic acidosis E87.20 Mass in rectum K62.89 Peripheral arterial disease I73.9 Dyslipidemia E78.5 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
--- NOTE | 2024-08-31 08:59 | Nephrology Progress Note ---
Date of Service August 31, 2024 Assessment & Plan (1) ARF (acute renal failure): Plan: * LIDIA due to profound dehydration and hypotension related to DKA. Urine microscopy reveals granular casts consistent with ATN * Patient is net 11 L volume positive due to aggressive volume resuscitation needed for DKA * CXR shows mild pulmonary vascular congestion, however, SaO2 99% on 45% FiO2 * BP has stabilized off Levophed therapy * POC discussed w/ ICU staff this am. Agree w/ trial of loop diuretic to promote diuresis * Electrolyte balance is acceptable. No acute indication for hemodialysis at this time * Monitor BMP, UO * Will likely require temporary dialysis catheter and initiation of HD within next 24-48 hours if kidney function fails to stabilize * Baseline creatinine 0.8. Cr today has risen to 5.0 * Will order renal US (2) Shock: Plan: * Resolved * Blood culturesNGTD x 24 hours * Urine cultureNGTD * On empiric Zosyn (3) DKA (diabetic ketoacidosis): Plan: * Resolved (4) Mass in rectum: Plan: * Endoscopy with biopsy once stable Admission and Anticipated Discharge Date Admission Date: August 28, 2024 Subjective Ms. Sorenson was evaluated in the ICU this morning. She remains sedated, mechanically ventilated. She was extubated for a brief period of time yesterday but required reintubation for airway protection last evening. Review of Systems Review of Systems: Unobtainable due to endotracheal tube Physical Exam Constitutional: + ill appearing Eyes: PERRL, conjunctivae normal, anicteric sclerae ENMT: orotracheal intubation Neck: trachea midline, no thyromegaly Respiratory: coarse BS bilaterally Cardiovascular: Rate/Rhythm: regular rate and regular rhythm Extremities: + edema (2+ dependent pitting edema) Gastrointestinal (Abdomen): Inspection/Auscultation: + hypoactive bowel sounds Percussion/Palpation: abdomen soft Results & Data Vital Signs (Past 12 Hours) Vital Signs Temp Pulse Pulse Resp BP Pulse Ox O2 Del Method 08/31/24 07:50 133/72 08/31/24 07:25 129/74 08/31/24 07:23 84 19 98 08/31/24 07:20 124/68 08/31/24 07:20 124/68 08/31/24 07:10 130/81 08/31/24 07:10 130/81 08/31/24 07:05 135/74 08/31/24 06:56 37.0 C 85 20 96 08/31/24 06:55 126/76 08/31/24 06:53 37.0 C 83 20 96 08/31/24 06:50 37.0 C 85 20 97 08/31/24 06:50 154/95 H 08/31/24 06:50 154/95 H 08/31/24 06:47 37.0 C 86 20 98 08/31/24 06:45 136/78 08/31/24 06:44 37.0 C 85 20 98 08/31/24 06:41 37.0 C 85 20 98 08/31/24 06:40 136/74 08/31/24 06:40 136/74 08/31/24 06:38 37.0 C 85 20 97 08/31/24 05:50 37.0 C 84 20 97 08/31/24 05:50 124/70 08/31/24 05:47 37.0 C 84 20 97 08/31/24 05:45 122/72 08/31/24 05:45 122/72 08/31/24 05:45 122/72 08/31/24 05:40 138/74 08/31/24 05:40 138/74 08/31/24 05:38 37.0 C 68 20 98 08/31/24 05:35 128/73 08/31/24 05:35 128/73 08/31/24 05:26 37.1 C 86 20 97 08/31/24 05:25 134/73 08/31/24 05:25 134/73 08/31/24 05:15 133/74 08/31/24 05:12 37.2 C 86 20 97 08/31/24 05:10 138/79 08/31/24 05:05 134/74 08/31/24 05:05 134/74 08/31/24 05:00 129/73 08/31/24 04:46 169/91 H 08/31/24 04:46 169/91 H 08/31/24 04:45 37.2 C 93 H 21 100 08/31/24 04:31 102/80 08/31/24 04:31 102/80 08/31/24 04:30 37.3 C 92 H 19 95 08/31/24 04:25 145/86 H 08/31/24 04:20 131/76 08/31/24 04:15 37.3 C 89 20 98 08/31/24 04:15 125/73 08/31/24 04:10 124/69 08/31/24 04:10 124/69 08/31/24 04:10 124/69 08/31/24 04:10 124/69 08/31/24 04:00 37.3 C 92 H 20 97 08/31/24 04:00 132/72 08/31/24 03:55 133/77 08/31/24 03:55 133/77 08/31/24 03:55 133/77 08/31/24 03:50 122/75 08/31/24 03:50 122/75 08/31/24 03:45 37.4 C 90 20 97 08/31/24 03:45 125/74 08/31/24 03:45 125/74 08/31/24 03:45 125/74 08/31/24 03:40 127/73 08/31/24 03:33 37.4 C 91 H 20 97 Mechanical Vent 08/31/24 03:30 126/71 08/31/24 03:30 126/71 08/31/24 03:27 37.4 C 91 H 20 96 08/31/24 03:25 110/69 08/31/24 03:25 110/69 08/31/24 03:25 110/69 08/31/24 03:20 122/72 08/31/24 03:20 122/72 08/31/24 03:12 37.4 C 91 H 20 97 08/31/24 03:10 118/72 08/31/24 03:09 37.4 C 91 H 20 97 08/31/24 03:05 118/73 08/31/24 03:05 118/73 08/31/24 02:55 128/72 08/31/24 02:55 128/72 08/31/24 02:50 123/78 08/31/24 02:49 91 H 21 96 08/31/24 02:45 133/76 08/31/24 02:40 132/80 08/31/24 02:40 132/80 08/31/24 02:39 37.4 C 95 H 20 96 08/31/24 02:38 08/31/24 02:35 134/68 08/31/24 02:35 134/68 08/31/24 02:30 125/78 08/31/24 01:25 134/76 08/31/24 01:20 138/81 08/31/24 01:12 37.4 C 86 20 98 08/31/24 01:10 133/76 08/31/24 01:10 133/76 08/31/24 01:10 133/76 08/31/24 01:10 133/76 08/31/24 01:00 135/86 08/31/24 00:55 128/77 08/31/24 00:51 37.5 C 87 20 99 08/31/24 00:50 128/77 08/31/24 00:50 128/77 08/31/24 00:50 128/77 08/31/24 00:50 128/77 08/31/24 00:48 37.5 C 87 20 98 08/31/24 00:45 37.5 C 89 20 98 08/31/24 00:45 115/72 08/31/24 00:45 115/72 08/31/24 00:45 115/72 08/31/24 00:40 115/68 08/31/24 00:39 37.5 C 88 20 96 08/31/24 00:35 150/84 H 08/31/24 00:35 150/84 H 08/31/24 00:33 37.5 C 93 H 20 96 08/31/24 00:30 37.5 C 87 20 97 08/31/24 00:30 141/79 H 08/31/24 00:30 141/79 H 08/31/24 00:30 141/79 H 08/31/24 00:20 126/75 08/31/24 00:20 126/75 08/31/24 00:18 37.6 C H 89 20 96 08/31/24 00:15 140/80 08/31/24 00:10 139/83 08/31/24 00:09 37.6 C H 86 20 97 08/31/24 00:05 133/77 08/31/24 00:05 133/77 08/31/24 00:00 131/79 08/30/24 23:57 37.6 C H 88 20 96 08/30/24 23:55 126/76 08/30/24 23:55 126/76 08/30/24 23:45 124/76 08/30/24 23:45 37.6 C H 90 20 96 08/30/24 23:40 141/81 H 08/30/24 23:39 37.6 C H 88 20 97 08/30/24 23:35 149/81 H 08/30/24 23:35 149/81 H 08/30/24 23:33 37.6 C H 89 20 97 08/30/24 23:30 139/82 08/30/24 23:30 139/82 08/30/24 23:30 37.6 C H 89 20 97 08/30/24 23:25 88 20 94 High Flow Nasal Cannula 08/30/24 23:24 91 H 08/30/24 23:04 91 H 20 96 08/30/24 22:59 Mechanical Vent 08/30/24 22:50 139/84 08/30/24 22:40 120/73 08/30/24 22:38 08/30/24 22:09 37.6 C H 90 20 100 08/30/24 22:05 109/69 08/30/24 22:05 109/69 08/30/24 22:05 109/69 08/30/24 22:00 37.6 C H 91 H 20 100 08/30/24 22:00 114/72 08/30/24 22:00 114/72 08/30/24 21:55 114/75 08/30/24 21:55 114/75 08/30/24 21:55 114/75 08/30/24 21:48 37.6 C H 93 H 20 99 08/30/24 21:45 112/65 Mechanical Vent 08/30/24 21:45 112/65 08/30/24 21:45 112/65 08/30/24 21:40 110/67 08/30/24 21:39 37.5 C 94 H 18 98 08/30/24 21:35 122/73 08/30/24 21:35 122/73 08/30/24 21:30 118/71 08/30/24 21:30 118/71 08/30/24 21:21 37.5 C 92 H 22 98 08/30/24 21:20 119/69 08/30/24 21:20 119/69 08/30/24 21:15 37.5 C 93 H 22 98 08/30/24 21:15 118/75 08/30/24 21:10 125/80 08/30/24 21:09 37.4 C 93 H 20 98 08/30/24 21:05 119/81 08/30/24 21:05 119/81 08/30/24 21:05 119/81 08/30/24 21:05 119/81 08/30/24 21:00 116/71 08/30/24 20:57 37.4 C 88 21 99 O2 Flow Rate FiO2 08/31/24 07:50 08/31/24 07:25 08/31/24 07:23 45 08/31/24 07:20 08/31/24 07:20 08/31/24 07:10 08/31/24 07:10 08/31/24 07:05 08/31/24 06:56 08/31/24 06:55 08/31/24 06:53 08/31/24 06:50 08/31/24 06:50 08/31/24 06:50 08/31/24 06:47 08/31/24 06:45 08/31/24 06:44 08/31/24 06:41 08/31/24 06:40 08/31/24 06:40 08/31/24 06:38 08/31/24 05:50 08/31/24 05:50 08/31/24 05:47 08/31/24 05:45 08/31/24 05:45 08/31/24 05:45 08/31/24 05:40 08/31/24 05:40 08/31/24 05:38 08/31/24 05:35 08/31/24 05:35 08/31/24 05:26 08/31/24 05:25 08/31/24 05:25 08/31/24 05:15 08/31/24 05:12 08/31/24 05:10 08/31/24 05:05 08/31/24 05:05 08/31/24 05:00 08/31/24 04:46 08/31/24 04:46 08/31/24 04:45 08/31/24 04:31 08/31/24 04:31 08/31/24 04:30 08/31/24 04:25 08/31/24 04:20 08/31/24 04:15 08/31/24 04:15 08/31/24 04:10 08/31/24 04:10 08/31/24 04:10 08/31/24 04:10 08/31/24 04:00 08/31/24 04:00 08/31/24 03:55 08/31/24 03:55 08/31/24 03:55 08/31/24 03:50 08/31/24 03:50 08/31/24 03:45 08/31/24 03:45 08/31/24 03:45 08/31/24 03:45 08/31/24 03:40 08/31/24 03:33 50 08/31/24 03:30 08/31/24 03:30 08/31/24 03:27 08/31/24 03:25 08/31/24 03:25 08/31/24 03:25 08/31/24 03:20 08/31/24 03:20 08/31/24 03:12 08/31/24 03:10 08/31/24 03:09 08/31/24 03:05 08/31/24 03:05 08/31/24 02:55 08/31/24 02:55 08/31/24 02:50 08/31/24 02:49 50 08/31/24 02:45 08/31/24 02:40 08/31/24 02:40 08/31/24 02:39 08/31/24 02:38 50 08/31/24 02:35 08/31/24 02:35 08/31/24 02:30 08/31/24 01:25 08/31/24 01:20 08/31/24 01:12 08/31/24 01:10 08/31/24 01:10 08/31/24 01:10 08/31/24 01:10 08/31/24 01:00 08/31/24 00:55 08/31/24 00:51 08/31/24 00:50 08/31/24 00:50 08/31/24 00:50 08/31/24 00:50 08/31/24 00:48 08/31/24 00:45 08/31/24 00:45 08/31/24 00:45 08/31/24 00:45 08/31/24 00:40 08/31/24 00:39 08/31/24 00:35 08/31/24 00:35 08/31/24 00:33 08/31/24 00:30 08/31/24 00:30 08/31/24 00:30 08/31/24 00:30 08/31/24 00:20 08/31/24 00:20 08/31/24 00:18 08/31/24 00:15 08/31/24 00:10 08/31/24 00:09 08/31/24 00:05 08/31/24 00:05 08/31/24 00:00 08/30/24 23:57 08/30/24 23:55 08/30/24 23:55 08/30/24 23:45 08/30/24 23:45 08/30/24 23:40 08/30/24 23:39 08/30/24 23:35 08/30/24 23:35 08/30/24 23:33 08/30/24 23:30 08/30/24 23:30 08/30/24 23:30 08/30/24 23:25 30 40 08/30/24 23:24 08/30/24 23:04 50 08/30/24 22:59 50 08/30/24 22:50 08/30/24 22:40 08/30/24 22:38 50 08/30/24 22:09 08/30/24 22:05 08/30/24 22:05 08/30/24 22:05 08/30/24 22:00 08/30/24 22:00 08/30/24 22:00 08/30/24 21:55 08/30/24 21:55 08/30/24 21:55 08/30/24 21:48 08/30/24 21:45 50 08/30/24 21:45 08/30/24 21:45 08/30/24 21:40 08/30/24 21:39 08/30/24 21:35 08/30/24 21:35 08/30/24 21:30 08/30/24 21:30 08/30/24 21:21 08/30/24 21:20 08/30/24 21:20 08/30/24 21:15 08/30/24 21:15 08/30/24 21:10 08/30/24 21:09 08/30/24 21:05 08/30/24 21:05 08/30/24 21:05 08/30/24 21:05 08/30/24 21:00 08/30/24 20:57 Laboratory Results Laboratory Results - last 24 hr 08/30/24 08/30/24 08/30/24 09:37 10:10 10:47 WBC RBC Hgb POC Hgb Hct POC Hct MCV MCH MCHC RDW Std Deviation RDW Coeff of Tressa Plt Count MPV Immature Gran % (Auto) Neut % (Auto) Lymph % (Auto) [place] % (Auto) Eos % (Auto) Baso % (Auto) Neut # (Auto) Lymph # (Auto) [place] # (Auto) Eos # (Auto) Baso # (Auto) Immature Gran # (Auto) Platelet Estimate Polychromasia Echinocytes PT INR APTT PTT Ratio Specimen Type Sample Site POC pH POC pCO2 POC pO2 POC HCO3 POC Total CO2 POC Base Excess O2 Sat Pulse Oximetry ABG pH (Temp Correct) ABG pCO2 (Temp Corrct POC ABG pO2 at Pt Temp POC ABG O2 Sat Morgan Test O2 Delivery Device Vent Mode POC FiO2 End Tidal CO2 POC Sodium Sodium POC Potassium Potassium Chloride Carbon Dioxide Anion Gap BUN Creatinine Est Cr Clr Drug Dosing eGFR BUN/Creatinine Ratio Glucose POC Glucose 147 H 135 H 142 H Lactate Calcium Magnesium Total Bilirubin AST ALT Alkaline Phosphatase Ammonia Total Protein Albumin Globulin Albumin/Globulin Ratio 08/30/24 08/30/24 08/30/24 11:33 15:57 16:01 WBC RBC Hgb POC Hgb Hct POC Hct MCV MCH MCHC RDW Std Deviation RDW Coeff of Tressa Plt Count MPV Immature Gran % (Auto) Neut % (Auto) Lymph % (Auto) [place] % (Auto) Eos % (Auto) Baso % (Auto) Neut # (Auto) Lymph # (Auto) [place] # (Auto) Eos # (Auto) Baso # (Auto) Immature Gran # (Auto) Platelet Estimate Polychromasia Echinocytes PT INR APTT PTT Ratio Specimen Type Sample Site POC pH POC pCO2 POC pO2 POC HCO3 POC Total CO2 POC Base Excess O2 Sat Pulse Oximetry ABG pH (Temp Correct) ABG pCO2 (Temp Corrct POC ABG pO2 at Pt Temp POC ABG O2 Sat Morgan Test O2 Delivery Device Vent Mode POC FiO2 End Tidal CO2 POC Sodium Sodium POC Potassium Potassium Chloride Carbon Dioxide Anion Gap BUN Creatinine Est Cr Clr Drug Dosing eGFR BUN/Creatinine Ratio Glucose POC Glucose 145 H 267 H 285 H Lactate Calcium Magnesium Total Bilirubin AST ALT Alkaline Phosphatase Ammonia Total Protein Albumin Globulin Albumin/Globulin Ratio 08/30/24 08/30/24 08/30/24 18:56 19:17 19:34 WBC RBC Hgb POC Hgb 13.3 Hct POC Hct 39 MCV MCH MCHC RDW Std Deviation RDW Coeff of Tressa Plt Count MPV Immature Gran % (Auto) Neut % (Auto) Lymph % (Auto) [place] % (Auto) Eos % (Auto) Baso % (Auto) Neut # (Auto) Lymph # (Auto) [place] # (Auto) Eos # (Auto) Baso # (Auto) Immature Gran # (Auto) Platelet Estimate Polychromasia Echinocytes PT INR APTT PTT Ratio Specimen Type Arterial Sample Site Art Line POC pH 7.35 POC pCO2 33 L POC pO2 64 L POC HCO3 18 L POC Total CO2 19 L POC Base Excess -7.0 O2 Sat Pulse Oximetry 96 ABG pH (Temp Correct) 7.346 L ABG pCO2 (Temp Corrct 34 L POC ABG pO2 at Pt Temp 66 POC ABG O2 Sat 91.0 Morgan Test NA O2 Delivery Device Ventilator Vent Mode AC POC FiO2 50 End Tidal CO2 28 POC Sodium 136 Sodium 134 L POC Potassium 5.3 H Potassium 5.1 Chloride 103 Carbon Dioxide 20 L Anion Gap 11 BUN 87 H Creatinine 4.73 H* D Est Cr Clr Drug Dosing 14.4 eGFR 9.81 BUN/Creatinine Ratio 18.4 Glucose 278 H POC Glucose 248 H Lactate 2.6 H* Calcium 7.3 L Magnesium Total Bilirubin 0.6 AST 92 H ALT 14 Alkaline Phosphatase 69 Ammonia Total Protein 4.8 L Albumin 2.6 L Globulin 2.2 L Albumin/Globulin Ratio 1.2 08/30/24 08/31/24 08/31/24 20:49 00:03 04:04 WBC 18.52 H RBC 4.25 Hgb 12.8 POC Hgb Hct 36.2 L POC Hct MCV 85.2 MCH 30.1 MCHC 35.4 RDW Std Deviation 43.3 RDW Coeff of Tressa 13.9 Plt Count 98 L MPV 10.3 Immature Gran % (Auto) 0.9 Neut % (Auto) 80.7 Lymph % (Auto) 9.6 [place] % (Auto) 6.6 Eos % (Auto) 2.0 Baso % (Auto) 0.2 Neut # (Auto) 14.94 H Lymph # (Auto) 1.77 [place] # (Auto) 1.23 H Eos # (Auto) 0.37 Baso # (Auto) 0.04 Immature Gran # (Auto) 0.17 Platelet Estimate Decreased L Polychromasia 1+ Echinocytes 1+ PT 12.0 INR 1.1 APTT 36 H PTT Ratio 1.3 Specimen Type Sample Site POC pH POC pCO2 POC pO2 POC HCO3 POC Total CO2 POC Base Excess O2 Sat Pulse Oximetry ABG pH (Temp Correct) ABG pCO2 (Temp Corrct POC ABG pO2 at Pt Temp POC ABG O2 Sat Morgan Test O2 Delivery Device Vent Mode POC FiO2 End Tidal CO2 POC Sodium Sodium 136 POC Potassium Potassium 4.7 Chloride 103 Carbon Dioxide 22 Anion Gap 11 BUN 101 H Creatinine 5.15 H* D Est Cr Clr Drug Dosing 13.3 eGFR 8.86 BUN/Creatinine Ratio 19.6 Glucose 175 H POC Glucose 234 H 177 H Lactate 2.2 H* Calcium 7.5 L Magnesium 2.2 Total Bilirubin 0.6 AST 78 H ALT 13 Alkaline Phosphatase 65 Ammonia 25.0 Total Protein 4.9 L Albumin 2.6 L Globulin 2.3 L Albumin/Globulin Ratio 1.1 08/31/24 07:15 WBC RBC Hgb POC Hgb Hct POC Hct MCV MCH MCHC RDW Std Deviation RDW Coeff of Tressa Plt Count MPV Immature Gran % (Auto) Neut % (Auto) Lymph % (Auto) [place] % (Auto) Eos % (Auto) Baso % (Auto) Neut # (Auto) Lymph # (Auto) [place] # (Auto) Eos # (Auto) Baso # (Auto) Immature Gran # (Auto) Platelet Estimate Polychromasia Echinocytes PT INR APTT PTT Ratio Specimen Type Sample Site POC pH POC pCO2 POC pO2 POC HCO3 POC Total CO2 POC Base Excess O2 Sat Pulse Oximetry ABG pH (Temp Correct) ABG pCO2 (Temp Corrct POC ABG pO2 at Pt Temp POC ABG O2 Sat Morgan Test O2 Delivery Device Vent Mode POC FiO2 End Tidal CO2 POC Sodium Sodium POC Potassium Potassium Chloride Carbon Dioxide Anion Gap BUN Creatinine Est Cr Clr Drug Dosing eGFR BUN/Creatinine Ratio Glucose POC Glucose 148 H Lactate Calcium Magnesium Total Bilirubin AST ALT Alkaline Phosphatase Ammonia Total Protein Albumin Globulin Albumin/Globulin Ratio 08/28/24 blood and urine cultures - NGTD 08/31/23 CXR: Endotracheal tube seen with its tip 5cm from muna. Stationary position of right CVL and NG tube. Stationary bilateral basal diffuse opacities, obliterated costophrenic angles, prominent broncho vascular marking,s and hilar vascularity, suggesting pulmonary congestion with pleural effusion. PG Care Time/CCT Total # of Minutes Spent Total Time Spent with Patient: Total time spent is greater than 50% in coordination of care (as documented) at patient's floor/unit and/or counseling patient: Coding Level of Care Code 38145 SUB INP/OBS CARE 3/50MIN Diagnoses ARF (acute renal failure) N17.9 Shock R57.9 DKA (diabetic ketoacidosis) E13.11 Diabetes mellitus complication detail: with coma Diabetes mellitus type: other specified (including SHILPA) Mass in rectum K62.89 (3) DKA (diabetic ketoacidosis) Diabetes mellitus complication detail: with coma Diabetes mellitus type: other specified (including SHILPA) Qualified Code(s): E13.11 - Other specified diabetes mellitus with ketoacidosis with coma
[2024-08-31] MEDS: LEVOTHYROXINE SODIUM 100 MCG TABLET NG SCH (10:04)
[2024-08-31] MEDS: TUBE FEEDING WATER FLUSH OG SCH (12:00)
[2024-08-31] MEDS: BUMETANIDE 4 MG in SYRINGE 0 ML IV ONE (14:05)
--- NOTE | 2024-08-31 14:52 | Ultrasound Report ---
RENAL ULTRASOUND CLINICAL HISTORY: Acute kidney injury. COMPARISON STUDY: None. TECHNIQUE: Sonography of the kidneys and the urinary bladder was performed. FINDINGS: This exam is compromised by suboptimal hydration. The right kidney measures 12.8 x 5.9 x 6. 2 cm and the left kidney measures 11.9 x 5.7 x 6.5 cm. There is mild right hydronephrosis. There is n o left hydronephrosis. Renal size and echogenicity are normal. There is a Stacy within the bladder. IMPRESSION: 1. Mild right hydronephrosis. No left hydronephrosis. 2. Exam mildly compromised by suboptimal penetration. ACT 112: Negative or not required by law. Electronically signed by: Navjot Live M.D. 08/31/2024 2:51 PM
--- NOTE | 2024-08-31 15:12 | Hospitalist Progress Note ---
Date of Service August 31, 2024 Assessment & Plan (1) Admitted to intensive care unit: (2) Shock: (3) DKA (diabetic ketoacidosis): (4) ARF (acute renal failure): (5) Encephalopathy: (6) Metabolic acidosis: Plan The patient is a 63-year-old female with a PMHx of DM II c/b diabetic foot ulcer w/ OM, rectal mass pending colonoscopy (scheduled for 08/29/24), PAD s/p right fem endarterectomy, peripheral neuropathy, HLD, hypothyroidism, and lower extremity edema. Pt was last known well about 3 days prior to admission. Her sister reported that pt has been dealing with N/V during this period. She was reluctant to eat or drink and was not taking her insulin. They found her unresponsive lying in bed, and she reportedly had a glucose ordered by by EMS. The patient was assessed by emergency department personnel, patient was intubated for airway protection, and was presented to the hospitalist service and ICU for admission. #Shock - sepsis vs hypovolemia - admitted to ICU - systolic in the 60s on admission - s/p fluid resuscitation - bicarb drip, levophed drip - Dapto / Zosyn - BCx NGTD - UCx no pathogenic growth - CXR neg for pna #DKA with hyperglycemia - resolved #Severe metabolic acidosis - BG 1262, pH 6.92 on admission - A1c: 8.7 - currently on lantus #Acute renal failure - worsening - baseline Cr: 0.8, on admission: 3.11 - due to shock - nephrology on board : possible HD if cr not improving #Elevated troponin - suspect demand and poor clearance in the setting of ARF - EKG unremarkable - bedside ECHO with adequate contractility of RV and LV #Metabolic encephalopathy - CT head neg - likely due to shock and metabolic derangements #Rectal mass - colonoscopy when pt is medically stable #PAD s/p right fem endarterectomy #Peripheral neuropathy #Hypothyroidism: on levothyroxine 100mcg at home #HLD: rosuvastatin 40mg at home #Chronic lower extremity edema: lasix 40mg daily at home DVT ppx: hep subq , scds Admission and Anticipated Discharge Date Admission Date: August 28, 2024 Subjective Pt was reintubated yesterday Currently not able to communicate Review of Systems Review of Systems: Unable to perform ROS due to mentation Physical Exam Physical Exam: Gen: NAD HEENT: NC/AT, ET tube in place Lungs: CTAB anteriorly CVS: s1s2 nl Abd: protuberant, nl bowel sounds Ext: pt is more edematous Neuro: sedated Results & Data Results & Data Vital Signs (Past 12 Hours) Vital Signs Temp Pulse Resp BP Pulse Ox O2 Del Method FiO2 08/31/24 14:18 37.4 C 86 18 100 08/31/24 14:10 121/68 08/31/24 14:05 118/66 08/31/24 14:00 37.4 C 84 19 99 08/31/24 14:00 128/76 08/31/24 14:00 128/76 08/31/24 14:00 128/76 08/31/24 14:00 128/76 08/31/24 14:00 45 08/31/24 13:55 124/64 08/31/24 13:55 124/64 08/31/24 13:55 124/64 08/31/24 13:54 37.3 C 85 16 99 08/31/24 13:50 120/66 08/31/24 13:45 128/72 08/31/24 13:45 128/72 08/31/24 13:42 37.3 C 84 16 98 08/31/24 13:40 125/68 08/31/24 13:39 37.4 C 84 16 97 08/31/24 13:36 37.4 C 85 16 97 08/31/24 13:35 127/66 08/31/24 13:35 127/66 08/31/24 13:25 114/64 08/31/24 13:20 113/62 08/31/24 13:20 113/62 08/31/24 13:15 128/68 08/31/24 13:15 128/68 08/31/24 13:10 131/68 08/31/24 13:10 131/68 08/31/24 13:09 37.3 C 87 23 97 08/31/24 13:05 124/63 08/31/24 13:00 120/65 08/31/24 13:00 120/65 08/31/24 12:54 37.4 C 82 16 99 08/31/24 12:51 37.4 C 82 16 99 08/31/24 12:50 119/61 08/31/24 12:50 119/61 08/31/24 12:45 128/66 08/31/24 12:45 128/66 08/31/24 12:42 37.4 C 84 16 100 08/31/24 12:40 129/66 08/31/24 12:39 37.4 C 83 16 99 08/31/24 12:36 37.4 C 83 17 100 08/31/24 12:35 129/69 08/31/24 12:35 129/69 08/31/24 12:35 129/69 08/31/24 12:35 129/69 08/31/24 12:33 37.4 C 85 17 100 08/31/24 12:30 135/72 08/31/24 12:30 37.4 C 84 17 100 08/31/24 12:25 135/70 08/31/24 12:00 82 08/31/24 11:11 82 18 99 45 08/31/24 11:10 115/64 08/31/24 11:00 131/72 08/31/24 11:00 37.3 C 86 17 99 08/31/24 10:55 128/66 08/31/24 10:55 128/66 08/31/24 10:54 37.3 C 85 17 99 08/31/24 10:50 132/69 08/31/24 10:50 132/69 08/31/24 10:45 131/74 08/31/24 10:45 37.3 C 87 17 99 08/31/24 10:40 131/72 08/31/24 10:36 37.3 C 87 19 99 08/31/24 10:36 122/68 08/31/24 10:20 138/77 08/31/24 10:15 132/68 08/31/24 10:15 132/68 08/31/24 10:10 130/68 08/31/24 10:09 37.2 C 88 17 99 08/31/24 10:05 135/70 08/31/24 10:05 135/70 08/31/24 10:00 120/67 08/31/24 10:00 37.2 C 86 16 98 08/31/24 10:00 50 08/31/24 09:55 126/68 08/31/24 09:55 126/68 08/31/24 09:55 126/68 08/31/24 09:51 37.2 C 88 20 99 08/31/24 09:50 138/71 08/31/24 09:45 125/70 08/31/24 09:45 37.2 C 85 20 99 08/31/24 09:40 127/67 08/31/24 09:40 127/67 08/31/24 09:36 131/67 08/31/24 09:30 122/65 08/31/24 09:25 128/72 08/31/24 09:25 128/72 08/31/24 09:20 130/73 08/31/24 09:10 128/69 08/31/24 09:09 37.1 C 84 20 97 08/31/24 08:50 131/72 08/31/24 08:45 137/74 08/31/24 08:36 37.1 C 82 20 99 08/31/24 08:35 127/69 08/31/24 08:33 37.1 C 82 20 99 08/31/24 08:30 37.1 C 82 20 99 08/31/24 08:30 129/68 08/31/24 08:25 129/70 08/31/24 08:25 129/70 08/31/24 08:20 123/73 08/31/24 08:15 146/74 H 08/31/24 08:15 146/74 H 08/31/24 08:12 37.1 C 83 20 98 08/31/24 08:10 132/73 08/31/24 08:00 132/71 08/31/24 08:00 133/72 08/31/24 07:55 144/75 H 08/31/24 07:55 144/75 H 08/31/24 07:50 Mechanical Vent 50 08/31/24 07:50 133/72 08/31/24 07:25 129/74 08/31/24 07:23 84 19 98 45 08/31/24 07:20 124/68 08/31/24 07:20 124/68 08/31/24 07:10 130/81 08/31/24 07:10 130/81 08/31/24 07:05 135/74 08/31/24 06:56 37.0 C 85 20 96 08/31/24 06:55 126/76 08/31/24 06:53 37.0 C 83 20 96 08/31/24 06:50 37.0 C 85 20 97 08/31/24 06:50 154/95 H 08/31/24 06:50 154/95 H 08/31/24 06:47 86 08/31/24 06:47 37.0 C 86 20 98 08/31/24 06:45 136/78 08/31/24 06:44 37.0 C 85 20 98 08/31/24 06:41 37.0 C 85 20 98 08/31/24 06:40 136/74 08/31/24 06:40 136/74 08/31/24 06:38 37.0 C 85 20 97 08/31/24 05:50 37.0 C 84 20 97 08/31/24 05:50 124/70 08/31/24 05:47 37.0 C 84 20 97 08/31/24 05:45 122/72 08/31/24 05:45 122/72 08/31/24 05:45 122/72 08/31/24 05:40 138/74 08/31/24 05:40 138/74 08/31/24 05:38 37.0 C 68 20 98 08/31/24 05:35 128/73 08/31/24 05:35 128/73 08/31/24 05:26 37.1 C 86 20 97 08/31/24 05:25 134/73 08/31/24 05:25 134/73 08/31/24 05:15 133/74 08/31/24 05:12 37.2 C 86 20 97 08/31/24 05:10 138/79 08/31/24 05:05 134/74 08/31/24 05:05 134/74 08/31/24 05:00 129/73 08/31/24 04:46 169/91 H 08/31/24 04:46 169/91 H 08/31/24 04:45 37.2 C 93 H 21 100 08/31/24 04:31 102/80 08/31/24 04:31 102/80 08/31/24 04:30 37.3 C 92 H 19 95 08/31/24 04:25 145/86 H 08/31/24 04:20 131/76 08/31/24 04:15 37.3 C 89 20 98 08/31/24 04:15 125/73 08/31/24 04:10 124/69 08/31/24 04:10 124/69 08/31/24 04:10 124/69 08/31/24 04:10 124/69 08/31/24 04:00 37.3 C 92 H 20 97 08/31/24 04:00 132/72 08/31/24 03:55 133/77 08/31/24 03:55 133/77 08/31/24 03:55 133/77 08/31/24 03:50 122/75 08/31/24 03:50 122/75 08/31/24 03:45 37.4 C 90 20 97 08/31/24 03:45 125/74 08/31/24 03:45 125/74 08/31/24 03:45 125/74 08/31/24 03:40 127/73 08/31/24 03:33 37.4 C 91 H 20 97 Mechanical Vent 50 08/31/24 03:30 126/71 08/31/24 03:30 126/71 08/31/24 03:27 37.4 C 91 H 20 96 08/31/24 03:25 110/69 08/31/24 03:25 110/69 08/31/24 03:25 110/69 08/31/24 03:20 122/72 08/31/24 03:20 122/72 PG Care Time/CCT Total # of Minutes Spent Total Time Spent with Patient: Total time spent is greater than 50% in coordination of care (as documented) at patient's floor/unit and/or counseling patient: Coding Level of Care Code 32228 SUB INP/OBS CARE 2/35MIN Diagnoses Admitted to intensive care unit Z78.9 Shock R57.9 DKA (diabetic ketoacidosis) E13.11 Diabetes mellitus complication detail: with coma Diabetes mellitus type: other specified (including SHILPA) ARF (acute renal failure) N17.9 Encephalopathy G93.40 Metabolic acidosis E87.20 (3) DKA (diabetic ketoacidosis) Diabetes mellitus complication detail: with coma Diabetes mellitus type: other specified (including SHILPA) Qualified Code(s): E13.11 - Other specified diabetes mellitus with ketoacidosis with coma
[2024-08-31] MEDS: LANTUS PER UNIT CHARGE SC ONE (16:56)
--- NOTE | 2024-08-31 18:17 | Hospitalist Progress Note ---
Date of Service August 30, 2024 Late addendum for Aug 30, 2024 Assessment & Plan (1) Admitted to intensive care unit: (2) Shock: (3) DKA (diabetic ketoacidosis): (4) ARF (acute renal failure): (5) Encephalopathy: (6) Metabolic acidosis: Plan The patient is a 63-year-old female with a PMHx of DM II c/b diabetic foot ulcer w/ OM, rectal mass pending colonoscopy (scheduled for 08/29/24), PAD s/p right fem endarterectomy, peripheral neuropathy, HLD, hypothyroidism, and lower extremity edema. Pt was last known well about 3 days prior to admission. Her sister reported that pt has been dealing with N/V during this period. She was reluctant to eat or drink and was not taking her insulin. They found her unresponsive lying in bed, and she reportedly had a glucose ordered by by EMS. The patient was assessed by emergency department personnel, patient was intubated for airway protection, and was presented to the hospitalist service and ICU for admission. #Shock - sepsis vs hypovolemia - remains in the ICU - systolic in the 60s on admission - s/p fluid resuscitation - bicarb drip, levophed drip - cont Zosyn - BCx NGTD - UCx no pathogenic growth - CXR neg for pna #DKA with hyperglycemia - resolved #Severe metabolic acidosis - BG 1262, pH 6.92 on admission - A1c: 8.7 - currently on lantus #Acute renal failure - worsening - baseline Cr: 0.8, on admission: 3.11 - due to shock - nephrology on board : possible HD if cr not improving #Elevated troponin - suspect demand and poor clearance in the setting of ARF - EKG unremarkable - bedside ECHO with adequate contractility of RV and LV #Metabolic encephalopathy - CT head neg - likely due to shock and metabolic derangements #Rectal mass - colonoscopy when pt is medically stable #PAD s/p right fem endarterectomy #Peripheral neuropathy #Hypothyroidism: on levothyroxine 100mcg at home #HLD: rosuvastatin 40mg at home #Chronic lower extremity edema: lasix 40mg daily at home DVT ppx: hep subq , scds Admission and Anticipated Discharge Date Admission Date: August 28, 2024 Subjective Pt extubated to BiPAP Pt still not able to communicate Review of Systems Review of Systems: Unable to perform ROS due to mentation Physical Exam Physical Exam: Gen: NAD HEENT: NC/AT, on BiPAP Lungs: CTAB anteriorly CVS: s1s2 nl Abd: protuberant, nl bowel sounds Ext: pt is more edematous Neuro: sedated Results & Data Results & Data Vital Signs (Past 12 Hours) Vital Signs Temp Pulse Resp BP Pulse Ox O2 Del Method FiO2 08/31/24 17:23 88 08/31/24 17:21 37.4 C 85 16 99 08/31/24 17:18 37.4 C 85 16 99 08/31/24 17:00 117/64 08/31/24 17:00 117/64 08/31/24 16:48 37.5 C 84 16 100 08/31/24 16:42 37.5 C 85 17 100 08/31/24 16:27 37.5 C 85 17 100 08/31/24 16:15 37.5 C 84 16 100 08/31/24 16:06 37.5 C 84 17 100 08/31/24 16:03 37.5 C 84 17 100 08/31/24 16:00 127/67 08/31/24 16:00 88 08/31/24 15:48 37.5 C 84 16 98 08/31/24 15:42 37.5 C 86 17 100 08/31/24 15:30 37.5 C 83 15 100 08/31/24 15:21 37.5 C 82 15 99 08/31/24 15:15 37.5 C 82 16 100 08/31/24 15:11 83 18 100 45 08/31/24 15:06 37.5 C 81 16 100 08/31/24 15:00 117/67 08/31/24 14:57 37.4 C 84 17 100 08/31/24 14:51 37.4 C 82 16 100 08/31/24 14:42 37.4 C 82 16 98 08/31/24 14:33 37.4 C 84 17 100 08/31/24 14:18 37.4 C 86 18 100 08/31/24 14:10 121/68 08/31/24 14:05 118/66 08/31/24 14:00 37.4 C 84 19 99 08/31/24 14:00 128/76 08/31/24 14:00 128/76 08/31/24 14:00 128/76 08/31/24 14:00 128/76 08/31/24 14:00 45 08/31/24 13:55 124/64 08/31/24 13:55 124/64 08/31/24 13:55 124/64 08/31/24 13:54 37.3 C 85 16 99 08/31/24 13:50 120/66 08/31/24 13:45 128/72 08/31/24 13:45 128/72 08/31/24 13:42 37.3 C 84 16 98 08/31/24 13:40 125/68 08/31/24 13:39 37.4 C 84 16 97 08/31/24 13:36 37.4 C 85 16 97 08/31/24 13:35 127/66 08/31/24 13:35 127/66 08/31/24 13:25 114/64 08/31/24 13:20 113/62 08/31/24 13:20 113/62 08/31/24 13:15 128/68 08/31/24 13:15 128/68 08/31/24 13:10 131/68 08/31/24 13:10 131/68 08/31/24 13:09 37.3 C 87 23 97 08/31/24 13:05 124/63 08/31/24 13:00 120/65 08/31/24 13:00 120/65 08/31/24 12:54 37.4 C 82 16 99 08/31/24 12:51 37.4 C 82 16 99 08/31/24 12:50 119/61 08/31/24 12:50 119/61 08/31/24 12:45 128/66 08/31/24 12:45 128/66 08/31/24 12:42 37.4 C 84 16 100 08/31/24 12:40 129/66 08/31/24 12:39 37.4 C 83 16 99 08/31/24 12:36 37.4 C 83 17 100 08/31/24 12:35 129/69 08/31/24 12:35 129/69 08/31/24 12:35 129/69 08/31/24 12:35 129/69 08/31/24 12:33 37.4 C 85 17 100 08/31/24 12:30 135/72 08/31/24 12:30 37.4 C 84 17 100 08/31/24 12:25 135/70 08/31/24 12:00 82 08/31/24 11:11 82 18 99 45 08/31/24 11:10 115/64 08/31/24 11:00 131/72 08/31/24 11:00 37.3 C 86 17 99 08/31/24 10:55 128/66 08/31/24 10:55 128/66 08/31/24 10:54 37.3 C 85 17 99 08/31/24 10:50 132/69 08/31/24 10:50 132/69 08/31/24 10:45 131/74 08/31/24 10:45 37.3 C 87 17 99 08/31/24 10:40 131/72 08/31/24 10:36 37.3 C 87 19 99 08/31/24 10:36 122/68 08/31/24 10:20 138/77 08/31/24 10:15 132/68 08/31/24 10:15 132/68 08/31/24 10:10 130/68 08/31/24 10:09 37.2 C 88 17 99 08/31/24 10:05 135/70 08/31/24 10:05 135/70 08/31/24 10:00 120/67 08/31/24 10:00 37.2 C 86 16 98 08/31/24 10:00 50 08/31/24 09:55 126/68 08/31/24 09:55 126/68 08/31/24 09:55 126/68 08/31/24 09:51 37.2 C 88 20 99 08/31/24 09:50 138/71 08/31/24 09:45 125/70 08/31/24 09:45 37.2 C 85 20 99 08/31/24 09:40 127/67 08/31/24 09:40 127/67 08/31/24 09:36 131/67 08/31/24 09:30 122/65 08/31/24 09:25 128/72 08/31/24 09:25 128/72 08/31/24 09:20 130/73 08/31/24 09:10 128/69 08/31/24 09:09 37.1 C 84 20 97 08/31/24 08:50 131/72 08/31/24 08:45 137/74 08/31/24 08:36 37.1 C 82 20 99 08/31/24 08:35 127/69 08/31/24 08:33 37.1 C 82 20 99 08/31/24 08:30 37.1 C 82 20 99 08/31/24 08:30 129/68 08/31/24 08:25 129/70 08/31/24 08:25 129/70 08/31/24 08:20 123/73 08/31/24 08:15 146/74 H 08/31/24 08:15 146/74 H 08/31/24 08:12 37.1 C 83 20 98 08/31/24 08:10 132/73 08/31/24 08:00 132/71 08/31/24 08:00 133/72 08/31/24 07:55 144/75 H 08/31/24 07:55 144/75 H 08/31/24 07:50 Mechanical Vent 50 08/31/24 07:50 133/72 08/31/24 07:25 129/74 08/31/24 07:23 84 19 98 45 08/31/24 07:20 124/68 08/31/24 07:20 124/68 08/31/24 07:10 130/81 08/31/24 07:10 130/81 08/31/24 07:05 135/74 08/31/24 06:56 37.0 C 85 20 96 08/31/24 06:55 126/76 08/31/24 06:53 37.0 C 83 20 96 08/31/24 06:50 37.0 C 85 20 97 08/31/24 06:50 154/95 H 08/31/24 06:50 154/95 H 08/31/24 06:47 86 08/31/24 06:47 37.0 C 86 20 98 08/31/24 06:45 136/78 08/31/24 06:44 37.0 C 85 20 98 08/31/24 06:41 37.0 C 85 20 98 08/31/24 06:40 136/74 08/31/24 06:40 136/74 08/31/24 06:38 37.0 C 85 20 97 PG Care Time/CCT Total # of Minutes Spent Total Time Spent with Patient: Total time spent is greater than 50% in coordination of care (as documented) at patient's floor/unit and/or counseling patient: Coding Level of Care Code 03977 SUB INP/OBS CARE 2/35MIN Diagnoses Admitted to intensive care unit Z78.9 Shock R57.9 DKA (diabetic ketoacidosis) E13.11 Diabetes mellitus complication detail: with coma Diabetes mellitus type: other specified (including SHILPA) ARF (acute renal failure) N17.9 Encephalopathy G93.40 Metabolic acidosis E87.20 (3) DKA (diabetic ketoacidosis) Diabetes mellitus complication detail: with coma Diabetes mellitus type: other specified (including SHILPA) Qualified Code(s): E13.11 - Other specified diabetes mellitus with ketoacidosis with coma
[2024-09-01 04:52] LABS: Basophils # (auto) 0.04 K/uL (0.00-0.20); Basophils % (auto) 0.2 %; Eosinophils # (auto) 0.01 K/uL (0.00-0.50); Eosinophils % (auto) 0.1 %; Hematocrit (blood only) 35.8 % (37.0-47.0); Hemoglobin 12.3 g/dl (12.0-16.0); Immature Granulocytes % (auto) 0.5 %; Lymphocytes # (auto) 1.63 K/uL (1.20-3.40); Lymphocytes % (auto) 8.8 %; Mean Corpuscular Hemoglobin 30.1 pg (25.0-34.0); Mean Corpuscular Hgb Conc 34.4 g/dL (32.0-36.0); Mean Corpuscular Volume 87.5 fL (80.0-100.0); Mean Platelet Volume 10.7 fL (9.4-12.4); Monocytes # (auto) 1.19 K/uL (0.11-0.59); Monocytes % (auto) 6.4 %; Neutrophils # (auto) 15.62 K/uL (1.40-6.50); Platelet Count 74 K/uL (130-400); RDW Coefficient of Variation 13.9 % (11.5-14.5); RDW Standard Deviation 44.5 fL (36.4-46.3); Red Blood Count 4.09 M/uL (4.20-5.40); White Blood Count 18.59 K/ul (4.8-10.8)
[2024-09-01 05:25] LABS: BUN Creatinine Ratio 17.6 (10-20); Calcium 8.1 mg/dl (8.6-10.3); Creatinine Clr Calc Pharmacy 10.8 ml/min; Magnesium 2.4 mg/dl (1.7-2.4); Phosphorus 3.8 mg/dl (2.5-4.9); Potassium 5.1 mmol/L (3.5-5.1)
--- NOTE | 2024-09-01 08:09 | XRay Report ---
EXAM: XR chest 1V portable CLINICAL HISTORY: EVAL LINES/TUBES/LUNG ESTEBAN WHILE INTUBATED. TECHNIQUE: X-ray image of the chest obtained in frontal projection. COMPARISON: Prior X-ray dated 08/31/2024 for comparison. FINDINGS: ETT with tip 5.3 cm above the muna. Right CVL and NG tube in situ. Pulmonary Parenchyma: Stable bilateral basal lung opacities and obscured costophrenic angles are likely pleural effusions. Prominent bilateral parahilar markings. Heart and Mediastinum: Heart size and shape are normal. No mediastinal widening or masses. No hilar or mediastinal lymphadenopathy. Bony Thorax: Bony thorax appears intact without fractures or deformities. Soft Tissues: Soft tissues overlying the chest wall are unremarkable. IMPRESSION: 1. ETT with tip 5.3 cm above the muna. 2. Right CVL and NG tube in situ. 3. Stable bilateral basal lung opacities and obscured costophrenic angles likely pleural effusion. Electronically signed by Annamaria Murcia 09-01-2024 08:08 AM
--- NOTE | 2024-09-01 08:35 | Critical Care Progress Note ---
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 Currently requiring escalating dose of vasopressors and acid base support as well as insulin infusion. 24-hour events: Patient is remained hemodynamically stable. Her vent settings are decreased but unfortunately urine output continues to decrease and the patient's creatinine and BUN continue to climb. Recommendations: Neuro -currently sedated. Suspect encephalopathy likely metabolic in etiology. Imaging showed no acute abnormalities. Currently sedated with fentanyl. Cardiac -patient presented with multifactorial shock. Pressors are now off. Troponin was mildly elevated likely secondary to supply/demand mismatch. Respiratory -patient was initially intubated due to hypoxemic respiratory failure and reintubated due to to encephalopathy. Her vent settings today are relatively minimal however her metabolic disarray may preclude vent liberation. Will coordinate with nephrology to see whether or not renal replacement therapy is going to be initiated and if so may give her 1 or 2 treatments to optimize her metabolic condition prior to consideration of vent liberation. GI - GERD, ? colon mass will place GI consultation to see whether or not colonoscopy can be accomplished during this hospitalization or not. Continue PPI. Continue tube feeding RENAL/LYTES -acute renal failure with minimal urine output and worsening renal indices. Nephrology consultation reviewed. - No acute needs Continue with Stacy ENDO - continue Synthroid. Glycemic control per ICU protocol. Presented with severe DKA. Gap closed. HEME -leukocytosis with thrombocytopenia which appears to be worsening. No evidence of hemolytic anemia. Afebrile. No purpura. Possibly related to Zosyn currently day #6. Discontinue antibiotics and follow. Check LDH ID: Day #6 empiric Zosyn. Cultures negative to date. Procalcitonin was e levated on presentation. --DNR Okay for vasopressors --Prophylaxis VTE: Heparin hold GI: Pantoprazole Lines: Right radial, right IJ Diet: Tube feeds Patient is critically ill at this point in time with multiorgan system dysfunction. A total of 45 minutes in critical care time was spent in evaluation management stabilization of this patient. No family immediately a vailable. Prognosis guarded Admission and Anticipated Discharge Date Admission Date: August 28, 2024 Subjective Patient seen and examined. She is intubated and sedated. Case discussed with off going bible teacher as well as critical care overnight CHRISTOPHER. Review of Systems Review of Systems: Unobtainable due to endotracheal tube Physical Exam Constitutional: + ill appearing and + mechanically venti lated Neck: trachea midline, no thyromegaly Respiratory: no labored breathing Auscultation: + rhonchi Cardiovascular: RRR, no murmur, no edema Gastrointestinal (Abdomen): normal bowel sounds, soft, nontender, no hepatosplenomegaly Musculoskeletal: Extremities: extremities normal to inspection Skin: no rashes, warm and dry Neurologic: Sedated Lymphatic: no cervical lymphadenopathy Results & Data Results & Data Vital Signs (Past 12 Hours) Vital Signs Temp Pulse Resp BP Pulse Ox O2 Del Method O2 Flow Rate 09/01/24 07:36 16 09/01/24 05:36 36.9 C 82 16 92 09/01/24 05:30 36.9 C 82 16 91 09/01/24 05:15 36.9 C 83 17 94 09/01/24 05:03 37.0 C 84 16 92 09/01/24 05:00 128/62 09/01/24 05:00 128/62 09/01/24 05:00 128/62 09/01/24 04:57 37.0 C 83 16 09/01/24 04:51 37.0 C 83 17 09/01/24 04:45 37.1 C 83 17 90 09/01/24 04:36 37.1 C 82 19 96 09/01/24 04:03 37.2 C 86 15 97 09/01/24 04:01 146/92 H 09/01/24 04:00 09/01/24 03:42 37.2 C 82 15 94 09/01/24 03:12 82 16 99 09/01/24 03:03 37.2 C 81 16 98 09/01/24 03:00 112/69 09/01/24 03:00 112/69 09/01/24 03:00 112/69 09/01/24 02:54 37.2 C 83 17 99 09/01/24 02:30 37.2 C 85 16 99 09/01/24 02:00 37.2 C 85 16 98 09/01/24 02:00 133/72 09/01/24 02:00 133/72 09/01/24 01:55 Mechanical Vent 09/01/24 01:33 37.3 C 83 16 98 09/01/24 01:15 37.3 C 85 15 99 09/01/24 01:00 127/71 09/01/24 01:00 127/71 09/01/24 00:57 37.4 C 84 16 98 Mechanical Vent 45 09/01/24 00:33 37.4 C 86 16 97 09/01/24 00:00 139/71 09/01/24 00:00 37.4 C 88 17 98 09/01/24 00:00 09/01/24 00:00 86 08/31/24 23:30 37.5 C 86 17 98 08/31/24 23:09 37.5 C 87 18 98 08/31/24 23:00 128/69 08/31/24 22:59 87 19 100 08/31/24 22:27 37.5 C 89 17 99 08/31/24 22:09 37.5 C 90 18 100 08/31/24 22:00 107/91 08/31/24 21:48 37.5 C 91 H 16 99 08/31/24 21:42 37.5 C 89 16 98 08/31/24 21:15 37.6 C H 89 16 98 08/31/24 21:00 149/87 H 08/31/24 21:00 149/87 H 08/31/24 20:57 37.5 C 87 16 99 FiO2 09/01/24 07:36 40 09/01/24 05:36 09/01/24 05:30 09/01/24 05:15 09/01/24 05:03 09/01/24 05:00 09/01/24 05:00 09/01/24 05:00 09/01/24 04:57 09/01/24 04:51 09/01/24 04:45 09/01/24 04:36 09/01/24 04:03 09/01/24 04:01 09/01/24 04:00 40 09/01/24 03:42 09/01/24 03:12 40 09/01/24 03:03 09/01/24 03:00 09/01/24 03:00 09/01/24 03:00 09/01/24 02:54 09/01/24 02:30 09/01/24 02:00 09/01/24 02:00 09/01/24 02:00 09/01/24 01:55 45 09/01/24 01:33 09/01/24 01:15 09/01/24 01:00 09/01/24 01:00 09/01/24 00:57 09/01/24 00:33 09/01/24 00:00 09/01/24 00:00 09/01/24 00:00 40 09/01/24 00:00 08/31/24 23:30 08/31/24 23:09 08/31/24 23:00 08/31/24 22:59 40 08/31/24 22:27 08/31/24 22:09 08/31/24 22:00 08/31/24 21:48 08/31/24 21:42 08/31/24 21:15 08/31/24 21:00 08/31/24 21:00 08/31/24 20:57 Critical Care Results & Data Vital Signs (Past 12 Hours) Vital Signs Temp Pulse Resp BP Pulse Ox O2 Del Method O2 Flow Rate 09/01/24 07:36 16 09/01/24 05:36 36.9 C 82 16 92 09/01/24 05:30 36.9 C 82 16 91 09/01/24 05:15 36.9 C 83 17 94 09/01/24 05:03 37.0 C 84 16 92 09/01/24 05:00 128/62 09/01/24 05:00 128/62 09/01/24 05:00 128/62 09/01/24 04:57 37.0 C 83 16 09/01/24 04:51 37.0 C 83 17 09/01/24 04:45 37.1 C 83 17 90 09/01/24 04:36 37.1 C 82 19 96 09/01/24 04:03 37.2 C 86 15 97 09/01/24 04:01 146/92 H 09/01/24 04:00 09/01/24 03:42 37.2 C 82 15 94 09/01/24 03:12 82 16 99 09/01/24 03:03 37.2 C 81 16 98 09/01/24 03:00 112/69 09/01/24 03:00 112/69 09/01/24 03:00 112/69 09/01/24 02:54 37.2 C 83 17 99 09/01/24 02:30 37.2 C 85 16 99 09/01/24 02:00 37.2 C 85 16 98 09/01/24 02:00 133/72 09/01/24 02:00 133/72 09/01/24 01:55 Mechanical Vent 09/01/24 01:33 37.3 C 83 16 98 09/01/24 01:15 37.3 C 85 15 99 09/01/24 01:00 127/71 09/01/24 01:00 127/71 09/01/24 00:57 37.4 C 84 16 98 Mechanical Vent 45 09/01/24 00:33 37.4 C 86 16 97 09/01/24 00:00 139/71 09/01/24 00:00 37.4 C 88 17 98 09/01/24 00:00 09/01/24 00:00 86 08/31/24 23:30 37.5 C 86 17 98 08/31/24 23:09 37.5 C 87 18 98 08/31/24 23:00 128/69 08/31/24 22:59 87 19 100 08/31/24 22:27 37.5 C 89 17 99 08/31/24 22:09 37.5 C 90 18 100 08/31/24 22:00 107/91 08/31/24 21:48 37.5 C 91 H 16 99 08/31/24 21:42 37.5 C 89 16 98 08/31/24 21:15 37.6 C H 89 16 98 08/31/24 21:00 149/87 H 08/31/24 21:00 149/87 H 08/31/24 20:57 37.5 C 87 16 99 FiO2 09/01/24 07:36 40 09/01/24 05:36 09/01/24 05:30 09/01/24 05:15 09/01/24 05:03 09/01/24 05:00 09/01/24 05:00 09/01/24 05:00 09/01/24 04:57 09/01/24 04:51 09/01/24 04:45 09/01/24 04:36 09/01/24 04:03 09/01/24 04:01 09/01/24 04:00 40 09/01/24 03:42 09/01/24 03:12 40 09/01/24 03:03 09/01/24 03:00 09/01/24 03:00 09/01/24 03:00 09/01/24 02:54 09/01/24 02:30 09/01/24 02:00 09/01/24 02:00 09/01/24 02:00 09/01/24 01:55 45 09/01/24 01:33 09/01/24 01:15 09/01/24 01:00 09/01/24 01:00 09/01/24 00:57 09/01/24 00:33 09/01/24 00:00 09/01/24 00:00 09/01/24 00:00 40 09/01/24 00:00 08/31/24 23:30 08/31/24 23:09 08/31/24 23:00 08/31/24 22:59 40 08/31/24 22:27 08/31/24 22:09 08/31/24 22:00 08/31/24 21:48 08/31/24 21:42 08/31/24 21:15 08/31/24 21:00 08/31/24 21:00 08/31/24 20:57 Lab & Micro Results (Past 24 Hours) RBC 4.09 M/uL (4.20-5.40) L 09/01/24 WBC 18.59 K/ul (4.8-10.8) H 09/01/24 Hgb 12.3 g/dl (12.0-16.0) 09/01/24 Hct 35.8 % (37.0-47.0) L 09/01/24 MCV 87.5 fL (80.0-100.0) 09/01/24 MCH 30.1 pg (25.0-34.0) 09/01/24 MCHC 34.4 g/dL (32.0-36.0) 09/01/24 RDW Standard Deviation 44.5 fL (36.4-46.3) 09/01/24 RDW Coefficient of Variation 13.9 % (11.5-14.5) 09/01/24 Plt Count 74 K/uL (130-400) L 09/01/24 MPV 10.7 fL (9.4-12.4) 09/01/24 Neutrophils (%) (Auto) 84.0 % 09/01/24 Lymphocytes (%) (Auto) 8.8 % 09/01/24 Monocytes # (Auto) 1.19 K/uL (0.11-0.59) H 09/01/24 Eosinophils # (Auto) 0.01 K/uL (0.00-0.50) 09/01/24 Immature Granulocyte % (Auto) 0.5 % 09/01/24 Neutrophils # (Auto) 15.62 K/uL (1.40-6.50) H 09/01/24 Lymphocytes # (Auto) 1.63 K/uL (1.20-3.40) 09/01/24 Monocytes # (Auto) 1.19 K/uL (0.11-0.59) H 09/01/24 Eosinophils # (Auto) 0.01 K/uL (0.00-0.50) 09/01/24 Basophils # (Auto) 0.04 K/uL (0.00-0.20) 09/01/24 Immature Granulocyte # (Auto) 0.10 K/uL (0.01-0.20) 5 Na 137 mmol/L (136-145) 09/01/24 K 5.1 mmol/L (3.5-5.1) 09/01/24 Cl 103 mmol/L (98-107) 09/01/24 CO2 23 mmol/L (21-32) 09/01/24 Anion Gap 11 (3-11) 09/01/24 BUN 112 mg/dl (6-23) H 09/01/24 Creatinine 6.36 mg/dl (0.6-1.2) H* 09/01/24 BUN/Creatinine Ratio 17.6 (10-20) 09/01/24 Glu 143 mg/dl (70-99(Fasting)) H 09/01/24 Ca 8.1 mg/dl (8.6-10.3) L 09/01/24 Phosphorus Level 3.8 mg/dl (2.5-4.9) 09/01/24 Mg 2.4 mg/dl (1.7-2.4) 09/01/24 04:06 Calcium Level 8.1 mg/dl (8.6-10.3) L 09/01/24 04:06 Microbiology 08/29/24 Unknown Urine Culture - Final Urine,Straight Cath No growth - less than 1,000 colonies/mL. Diagnostic Findings (Past 24 Hours) Renal Ultrasound 08/31/24 11:26 RENAL ULTRASOUND CLINICAL HISTORY: Acute kidney injury. COMPARISON STUDY: None. TECHNIQUE: Sonography of the kidneys and the urinary bladder was performed. FINDINGS: This exam is compromised by suboptimal hydration. The right kidney measures 12.8 x 5.9 x 6.2 cm and the left kidney measures 11.9 x 5.7 x 6.5 cm. There is mild right hydronephrosis. There is no left hydronephrosis. Renal size and echogenicity are normal. There is a Stacy within the bladder. IMPRESSION: 1. Mild right hydronephrosis. No left hydronephrosis. 2. Exam mildly compromised by suboptimal penetration. ACT 112: Negative or not required by law. Electronically signed by: Navjot Live M.D. 08/31/2024 2:51 PM Chest X-Ray 09/01/24 06:00 EXAM: XR chest 1V portable CLINICAL HISTORY: EVAL LINES/TUBES/LUNG ESTEBAN WHILE INTUBATED. TECHNIQUE: X-ray image of the chest obtained in frontal projection. COMPARISON: Prior X-ray dated 08/31/2024 for comparison. FINDINGS: ETT with tip 5.3 cm above the muna. Right CVL and NG tube in situ. Pulmonary Parenchyma: Stable bilateral basal lung opacities and obscured costophrenic angles are likely pleural effusions. Prominent bilateral parahilar markings. Heart and Mediastinum: Heart size and shape are normal. No mediastinal widening or masses. No hilar or mediastinal lymphadenopathy. Bony Thorax: Bony thorax appears intact without fractures or deformities. Soft Tissues: Soft tissues overlying the chest wall are unremarkable. IMPRESSION: 1. ETT with tip 5.3 cm above the muna. 2. Right CVL and NG tube in situ. 3. Stable bilateral basal lung opacities and obscured costophrenic angles likely pleural effusion. Electronically signed by Annamaria Murcia 09-01-2024 08:08 AM I & O Totals 24 Hours 08/31/24 09/01/24 09/02/24 06:59 06:59 06:59 Intake Total 981.267 / 981.267 774.584 / 774.584 93.333 / 93.333 Output Total 620 / 620 855 / 855 Balance 361.267 / 361.267 -80.416 / -80.416 93.333 / 93.333 Cumulative 08/28/24 17:53 thru 09/01/24 07:25 Intake Total 91103.059 Output Total 2740 Balance 70576.059 RT Ventilator Mngmt (Last Documented) Ventilator Ordered Settings Ventilator Support Mode Assist Control 09/01/24 07:36 Respiratory Rate 16 09/01/24 07:36 Ventilator Tidal Volume 380 09/01/24 07:36 Setting Minute Ventilation 6.1 09/01/24 07:36 Positive End Expiratory 8 09/01/24 07:36 Pressure Fraction of Inspired Oxygen 40 09/01/24 07:36 Machine Comment changed VT to 340 per MECHANICAL ESTIMATOR 08/29/24 20:45 Ventilator - PT Measurements Respiratory Rate 16 Exhaled Tidal Volume 380 Minute Ventilation 6.1 Peak Inspiratory Airway 19 Pressure Plateau Pressure 18 Respiratory Cycle Inspiratory: 1:4.4 Expiratory Ratio Inspiratory Phase Time 0.7 End-Tidal CO2 35 Static Lung Compliance 38.00 Dynamic Lung Compliance 34.55 Normal Static Lung Compliance 48.00 Patient Measurements Comment I time to 0.70 Coding Level of Care Code 14700 CRITICAL CARE 1ST 30-74M Diagnoses DKA (diabetic ketoacidosis) E13.11 Diabetes mellitus complication detail: with coma Diabetes mellitus type: other specified (including SHILPA) ARF (acute renal failure) N17.9 Encephalopathy G93.40 Shock R57.9 Metabolic acidosis E87.20 Mass in rectum K62.89 Peripheral arterial disease I73.9 Dyslipidemia E78.5 Diabetes mellitus type 1 with complications E10.8 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
[2024-09-01] MEDS: LANTUS PER UNIT CHARGE SC SCH (08:39)
--- NOTE | 2024-09-01 09:20 | Gastrointestinal Consultation ---
Date of Consultation September 01, 2024 Assessment & Plan (1) Mass in rectum: Patient critically ill, sedated, intubated/ventilated, with worsening kidney function. Would prioritize her acute illness and defer endoscopic evaluation regarding the CT scan abnormality from June 2024 until she is more stable. Supervising Physician Co-Signing Physician Notes I saw and examined this patient with our nurse practitioner and agree with her assessment and plan. Recent imaging suggested a rectal mass. Now with multiorgan system failure; renal and pulmonary. Not a candidate for further evaluation of this possible finding on CT scan. Will reassess if her clinical condition improves. History of Present Illness Reason for Consultation: rectal mass on CT Attending Physician: Augusto Nowak MD History of Present Illness Patient is a 63 yo female with a PMH of PAD, rectal mass on CT awaiting colonoscopy, DM1, diabetic foot ulcer complicated by osteomyelitis, HLD, peripheral neuropathy, hypothyroidism, & lower extremity edema who presented to [facility] on 08/28/24 after being found unresponsive by her family. She was brought to the ED where glucose was 1262 and she was noted to be in DKA with a pH of 6.92. Procalcitonin was elevated on admission. She was intubated for airway protection and initiated on Bicarb and Levophed. Broad spectrum antibiotics were initiated as infectious process could not be ruled out at the time of admission. A troponin was elevated >90 on admission and was attributed to supply/demand mismatch, however no further troponins were cycled. She has an LIDIA and is not making very much urine. Nephrology is involved and felt this was consistent with ATN but her function appears to be worsening with today's BUN 112 and Creatinine 6.36 without previous history of dialysis. From a pulmonary perspective, it appears that they have been decreasing her vent needs, but have not extubated to this point. Pressors have stopped. From a hematologic perspective she appears to have worsening leukocytosis & thrombocytopenia with a WBC today 18,590 and platelets at 74,000. H/H 12.3/35.8 without overt GI bleeding. GI has been involved in this situation due to a CT scan from June (without contrast) that suggested a possible anorectal mass. A colonoscopy had apparently been arranged as an outpatient, but I do not have any further details regarding this. I do not have any records of any of her previous colonoscopies (if any occurred) as she has not been cared for by our [facility] GI team in the past. OG tube feeds are ongoing at the current time. Allergies Allergy/AdvReac Type Severity Reaction Status Date / Time tetanus toxoid, adsorbed AdvReac Intermediate SWELLING Verified 08/15/24 13:04 AT [facility] Home Medications Medication Instructions Recorded Confirmed Type blood sugar diagnostic (OneTouch 09/04/22 08/28/24 History Ultra Test strips) blood-glucose meter (OneTouch 09/04/22 08/28/24 History Ultra2 Meter) blood-glucose meter,continuous #1 ea 02/26/23 08/28/24 Rx (Dexcom G7 Un[employer] Insurance Director) pen needle, diabetic 32 gauge x #100 ea 02/26/23 08/28/24 Rx 5/16" (Comfort EZ Pen Sweet) ibuprofen 200 mg tablet (Advil) 600 mg (3 x 200 mg) PO QID PRN 08/30/23 08/28/24 Rx fever or pain #30 tabs insulin syringe-needle U-100 0.3 #300 ea 02/08/24 08/28/24 Rx mL 31 gauge x 5/16" (BD Insulin Syringe Ultra-Fine) blood-glucose sensor (Dexcom G7 #9 ea 02/14/24 08/28/24 Rx Sensor device) furosemide 40 mg tablet (Lasix) 40 mg PO QAM 06/03/24 08/28/24 History glucagon 3 mg/actuation nasal spray 3 mg intranasal ONCE PRN 06/03/24 08/28/24 History Hypoglycemia oxycodone-acetaminophen 5 mg-325 1 - 2 tab PO Q6H PRN pain #20 tabs 06/06/24 08/28/24 Rx mg tablet (Percocet) insulin glargine 100 unit/mL (3 15 unit (0.15 mL) subcut BID #30 mL 07/23/24 08/28/24 Rx mL) subcutaneous pen (Lantus Solostar U-100 Insulin) levothyroxine 100 mcg tablet 100 mcg PO QAM #90 tabs 07/23/24 08/28/24 Rx rosuvastatin 40 mg tablet 40 mg PO QAM 07/31/24 08/28/24 History insulin aspart U-100 100 unit/mL See Rx Instructions .Route .COMPLEX 08/28/24 08/28/24 History subcutaneous solution Patient History Medical History Post op infection is using a silver coated strip for surgical site infection from the femoral endarterectomy. following with Dr. Fitzgearld's office. Rectal mass found in CT end of June 2024 - reason for upcoming procedure Hx of hypotension (01/2024) Hx of fall (02/04/24) no major injuries Dental caries pt. reports decayed teeth, needs dentures, not loose Sleep-disordered breathing denies sleep study- sister told pt. 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 dickerson - states his PA did not hear a cardiac murmur (05/14/24) Sensory neuropathy feet 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) hx-right foot Lower extremity edema hx - swelling has been much better since starting lasix Shoulder pain left, r/t arthritis Peripheral arterial disease Hx of angiography 06/2023, [facility], bilateral and abdominal aortogram Hyperlipidemia Hypothyroidism Surgical History History of endarterectomy (05/2024) right femoral endarterectomy History of cholecystectomy (1988) during hyster History of appendectomy (1988) during hyster History of tooth extraction History of cataract surgery (02/2024) rt/left History of partial amputation of toe of right foot (07/2023) pt. reports clipping toe nails and accidentally removing entire toe nail, which lead to infection History of carpal tunnel release (08/2023) left Hx of colonoscopy History of tonsillectomy and adenoidectomy (1972) initial sx age 2, revision age 12 Hx of total hysterectomy with removal of both tubes and ovaries at age 28, also removed gallbladder and appendix at same time Family History Mother Myocardial infarction Other No family history of adverse response to anesthesia Denies family history of Ovarian cancer Prostate cancer Breast cancer Colorectal cancer Social History Smoking Status: Never smoker Second Hand Exposure: Yes; Do You Dip or Chew Tobacco: No; Hx Alcohol Use: Yes Alcohol type: beer Alcohol Intake Frequency: Monthly or Less Hx Substance Use: No Preferred Language: Hungarian Communication Ability: Impaired Visual Impairment: No Limitations Hearing Ability: Normal Child Caregiver Required: No Beliefs That Will Affect Care: None marital status: Single Current Living Situation: Family Current Living Situation Comment: lives with sister's family current occupational status: retired Other Information That Helps Us Care for You: No Feels Safe at Home: Yes Childhood Exposure to Second-Hand Smoke: Yes Diet: low carbohydrate caffeine: Yes during the past year weight has: remained stable Dental Care, Regularly: No Physical Activity Frequency: 5-6 Times per Week Seatbelt Use: always Sunscreen Use: No Assistive Devices: None Review of Systems Review of Systems: Other (Unobtainable due to sedation, intubation with mechanical ventilation) Physical Exam Respiratory: mechanically ventilated Chest (Breasts): normal inspection/palpation of breasts (Disregard this ) Gastrointestinal (Abdomen): Abdominal exam unremarkable abdomen flat soft nontender bowel sounds positive no rebound or guarding. Rectal exam not done. Neurologic: sedated Results & Data Vital Signs (Past 12 Hours) Vital Signs Temp Pulse Resp BP Pulse Ox O2 Del Method O2 Flow Rate 09/01/24 07:36 16 09/01/24 05:36 36.9 C 82 16 92 09/01/24 05:30 36.9 C 82 16 91 09/01/24 05:15 36.9 C 83 17 94 09/01/24 05:03 37.0 C 84 16 92 09/01/24 05:00 128/62 09/01/24 05:00 128/62 09/01/24 05:00 128/62 09/01/24 04:57 37.0 C 83 16 09/01/24 04:51 37.0 C 83 17 09/01/24 04:45 37.1 C 83 17 90 09/01/24 04:36 37.1 C 82 19 96 09/01/24 04:03 37.2 C 86 15 97 09/01/24 04:01 146/92 H 09/01/24 04:00 09/01/24 03:42 37.2 C 82 15 94 09/01/24 03:12 82 16 99 09/01/24 03:03 37.2 C 81 16 98 09/01/24 03:00 112/69 09/01/24 03:00 112/69 09/01/24 03:00 112/69 09/01/24 02:54 37.2 C 83 17 99 09/01/24 02:30 37.2 C 85 16 99 09/01/24 02:00 37.2 C 85 16 98 09/01/24 02:00 133/72 09/01/24 02:00 133/72 09/01/24 01:55 Mechanical Vent 09/01/24 01:33 37.3 C 83 16 98 09/01/24 01:15 37.3 C 85 15 99 09/01/24 01:00 127/71 09/01/24 01:00 127/71 09/01/24 00:57 37.4 C 84 16 98 Mechanical Vent 45 09/01/24 00:33 37.4 C 86 16 97 09/01/24 00:00 139/71 09/01/24 00:00 37.4 C 88 17 98 09/01/24 00:00 09/01/24 00:00 86 08/31/24 23:30 37.5 C 86 17 98 08/31/24 23:09 37.5 C 87 18 98 08/31/24 23:00 128/69 08/31/24 22:59 87 19 100 08/31/24 22:27 37.5 C 89 17 99 08/31/24 22:09 37.5 C 90 18 100 08/31/24 22:00 107/91 08/31/24 21:48 37.5 C 91 H 16 99 08/31/24 21:42 37.5 C 89 16 98 FiO2 09/01/24 07:36 40 09/01/24 05:36 09/01/24 05:30 09/01/24 05:15 09/01/24 05:03 09/01/24 05:00 09/01/24 05:00 09/01/24 05:00 09/01/24 04:57 09/01/24 04:51 09/01/24 04:45 09/01/24 04:36 09/01/24 04:03 09/01/24 04:01 09/01/24 04:00 40 09/01/24 03:42 09/01/24 03:12 40 09/01/24 03:03 09/01/24 03:00 09/01/24 03:00 09/01/24 03:00 09/01/24 02:54 09/01/24 02:30 09/01/24 02:00 09/01/24 02:00 09/01/24 02:00 09/01/24 01:55 45 09/01/24 01:33 09/01/24 01:15 09/01/24 01:00 09/01/24 01:00 09/01/24 00:57 09/01/24 00:33 09/01/24 00:00 09/01/24 00:00 09/01/24 00:00 40 09/01/24 00:00 08/31/24 23:30 08/31/24 23:09 08/31/24 23:00 08/31/24 22:59 40 08/31/24 22:27 08/31/24 22:09 08/31/24 22:00 08/31/24 21:48 08/31/24 21:42 PG Care Time/CCT Total # of Minutes Spent Total Time Spent with Patient: Total time spent is greater than 50% in coordination of care (as documented) at patient's floor/unit and/or counseling patient: Coding Level of Care Code 96303 IN/OBS CONSULT LVL 4,60M Diagnoses Mass in rectum K62.89
[2024-09-01 09:24] LABS: Hep B Surface Ag with confirm Negative (Negative)
[2024-09-01] MEDS: CALCIUM GLUCONATE 1,000 MG/60 ML BAG IV STA (09:27)
[2024-09-01] MEDS: ALBUMIN 25% 25 GM/100 ML VIAL IV SCH (09:29)
[2024-09-01 09:33] LABS: Hepatitis B Surface Ab Quant < 3.00 mIU/mL (>or=10mIU/mL Immune); Hepatitis B Surface Antibody Non-Immune
--- NOTE | 2024-09-01 10:15 | Nephrology Progress Note ---
Date of Service September 01, 2024 Assessment & Plan (1) LIDIA (acute kidney injury): (2) DKA (diabetic ketoacidosis): (3) Oliguria: Plan 63-year-old F admitted after patient was found unresponsive at home with history of 1 week history of nausea, vomiting and diarrhea. On admission noted to be in DKA, intubated. Developed LIDIA with progressive worsening of kidney function most likely secondary to ATN in setting of hypotension, DKA, volume depletion, creatinine up to 6.4 this morning with baseline normal kidney function, baseline creatinine 0.8. Renal ultrasound with mild right-sided hydronephrosis but otherwise unremarkable. --plan for Temporary DC and 3 h HD today, try UF 1 L, will bring to the monitor urine output. Admission and Anticipated Discharge Date Admission Date: August 28, 2024 Janel Marin was seen and evaluated this morning. She remains intubated and sedated, blood pressure improved and stable remain oliguric and r noted to have rapid worsening of kidney function, creatinine above 6, BUN 112. Review of Systems Review of Systems: Unobtainable due to endotracheal tube and Unobtainable due to reduced consciousness Physical Exam Constitutional: WD/WN, vitals as above + ill appearing and + mechanically ventilated Respiratory: Auscultation: + diminished lung sounds Cardiovascular: Rate/Rhythm: regular rate and regular rhythm Heart Sounds: normal S1 and normal S2 Extremities: no edema Neurologic: could not be assessed. Results & Data Vital Signs (Past 12 Hours) Vital Signs Temp Pulse Resp BP Pulse Ox O2 Del Method O2 Flow Rate 09/01/24 07:36 16 09/01/24 05:36 36.9 C 82 16 92 09/01/24 05:30 36.9 C 82 16 91 09/01/24 05:15 36.9 C 83 17 94 09/01/24 05:03 37.0 C 84 16 92 09/01/24 05:00 128/62 09/01/24 05:00 128/62 09/01/24 05:00 128/62 09/01/24 04:57 37.0 C 83 16 09/01/24 04:51 37.0 C 83 17 09/01/24 04:45 37.1 C 83 17 90 09/01/24 04:36 37.1 C 82 19 96 09/01/24 04:03 37.2 C 86 15 97 09/01/24 04:01 146/92 H 09/01/24 04:00 09/01/24 03:42 37.2 C 82 15 94 09/01/24 03:12 82 16 99 09/01/24 03:03 37.2 C 81 16 98 09/01/24 03:00 112/69 09/01/24 03:00 112/69 09/01/24 03:00 112/69 09/01/24 02:54 37.2 C 83 17 99 09/01/24 02:30 37.2 C 85 16 99 09/01/24 02:00 37.2 C 85 16 98 09/01/24 02:00 133/72 09/01/24 02:00 133/72 09/01/24 01:55 Mechanical Vent 09/01/24 01:33 37.3 C 83 16 98 09/01/24 01:15 37.3 C 85 15 99 09/01/24 01:00 127/71 09/01/24 01:00 127/71 09/01/24 00:57 37.4 C 84 16 98 Mechanical Vent 45 09/01/24 00:33 37.4 C 86 16 97 09/01/24 00:00 139/71 09/01/24 00:00 37.4 C 88 17 98 09/01/24 00:00 09/01/24 00:00 86 08/31/24 23:30 37.5 C 86 17 98 08/31/24 23:09 37.5 C 87 18 98 08/31/24 23:00 128/69 08/31/24 22:59 87 19 100 08/31/24 22:27 37.5 C 89 17 99 08/31/24 22:09 37.5 C 90 18 100 FiO2 09/01/24 07:36 40 09/01/24 05:36 09/01/24 05:30 09/01/24 05:15 09/01/24 05:03 09/01/24 05:00 09/01/24 05:00 09/01/24 05:00 09/01/24 04:57 09/01/24 04:51 09/01/24 04:45 09/01/24 04:36 09/01/24 04:03 09/01/24 04:01 09/01/24 04:00 40 09/01/24 03:42 09/01/24 03:12 40 09/01/24 03:03 09/01/24 03:00 09/01/24 03:00 09/01/24 03:00 09/01/24 02:54 09/01/24 02:30 09/01/24 02:00 09/01/24 02:00 09/01/24 02:00 09/01/24 01:55 45 09/01/24 01:33 09/01/24 01:15 09/01/24 01:00 09/01/24 01:00 09/01/24 00:57 09/01/24 00:33 09/01/24 00:00 09/01/24 00:00 09/01/24 00:00 40 09/01/24 00:00 08/31/24 23:30 08/31/24 23:09 08/31/24 23:00 08/31/24 22:59 40 08/31/24 22:27 08/31/24 22:09 PG Care Time/CCT Total # of Minutes Spent Total Time Spent with Patient: Total time spent is greater than 50% in coordination of care (as documented) at patient's floor/unit and/or counseling patient: Coding Level of Care Code 58154 SUB INP/OBS CARE 2/35MIN Diagnoses LIDIA (acute kidney injury) N17.9 DKA (diabetic ketoacidosis) E11.10 Oliguria R34
--- NOTE | 2024-09-01 10:41 | Procedure Note ---
Procedure Note Date of Service September 01, 2024 CENTRAL LINE PROCEDURE NOTE: Procedure: Temporary hemodialysis central venous catheter Provider: Rasta Smith MD Indication: Provide temporary access for hemodialysis Anesthesia: 5 cc 1% lidocaine Site: Left femoral Procedure was urgent. Patient intubated and unable to provide verbal consent. Family did provide consent through the nurse for dialysis and central venous catheter A time-out was completed verifying correct patient, procedure, site, positio han, and implants(s) or special equipment if applicable. The patient had undergone instrumentation in the right inguinal area previously so decision was made to proceed with left femoral access. The area was ultrasounded and a compressible vein was identified. Skin and subcutaneous tissues were anesthetized with 5 cc 1% lidocaine. Under direct ultrasound visualization, the left femoral vein was accessed using an 18-gauge needle. Good venous blood return was maintained prior to removal of syringe from introducer needle. Using Seldinger Technique, a guide wire was advanced through the introducer needle without resistance. The introducer needle was removed and ultrasound images were obtained of the guide wire within the Internal Jugular Vein. A small incision was made in penetrating fashion at the guide wire insertion site utilizing an 11 blade scalpel. Serial dilators were then advanced to the vessel without resistance. The final dilator was exchanged for the 24 cm temporary HD catheter which was advanced into the vessel without resistance. The guide wire was removed intact from the catheter without issue. Each port was easily flushed with sterile saline. The catheter was placed at the hub and sutured in place. BioPatch was applied to the catheter and a sterile Tegaderm dressing was applied over the catheter with careful attention to sterility. Patient tolerated procedure well. No immediate complications were met. Post procedure x-ray was completed, placement was appropriate and no pneumothorax was noted. Estimated blood loss: 5 mL [facility] Procedure Codes (Charges) Tubes, Drains, and Vasc Access Procedure 1: Tubes, Drains, and Vasc Access: [id number] Insertion of cannula for hemodialysis Procedure 2: Tubes, Drains, and Vasc Access: [id number] Ultrasound Guidance For Vascular Coding CPT Codes Tubes, Drains, and Vasc Access - Tubes, Drains, and Vasc Access: [id number] Insertion of cannula for hemodialysis ([id number]) Tubes, Drains, and Vasc Access - Tubes, Drains, and Vasc Access: [id number] Ultrasound Guidance For Vascular ([id number]) Additional Codes Date of Service (PG.SURGERY)
[2024-09-01] MEDS: DOCUSATE SODIUM SYRUP 100 MG/10 ML UDC PO SCH (10:53)
--- NOTE | 2024-09-01 16:44 | Hospitalist Progress Note ---
Date of Service September 01, 2024 Assessment & Plan (1) Admitted to intensive care unit: (2) Shock: (3) DKA (diabetic ketoacidosis): (4) ARF (acute renal failure): (5) Encephalopathy: (6) Metabolic acidosis: Plan Patient is a 63 yo female with a PMH of PAD, rectal mass on CT awaiting colonoscopy, DM1, diabetic foot ulcer complicated by osteomyelitis, HLD, peripheral neuropathy, hypothyroidism, & lower extremity edema who presented to [facility] on 08/28/24 after being found unresponsive by her family. She was brought to the ED where glucose was 1262 and she was noted to be in DKA with a pH of 6.92. Procalcitonin was elevated on admission. She was intubated for airway protection and initiated on Bicarb and Levophed. Broad spectrum antibiotics were initiated as infectious process could not be ruled out at the time of admission. Now with worsening renal function and in need of HD #Shock - sepsis vs hypovolemia - remains in the ICU - s/p fluid resuscitation, no longer on pressors - Zosyn has been stopped - BCx NGTD - UCx no pathogenic growth - CXR neg for pna Hypoxic resp failure Patient was intubated to secure her airways currently on ventilator wean as tolerated #Acute renal failure - worsening - baseline Cr: 0.8, on admission: 3.11, today 5.88 - due to acute tubular necrosis - nephrology on board -Temprorary HD catheter inserted Plan is for HD #DKA with hyperglycemia - resolved #Severe metabolic acidosis - BG 1262, pH 6.92 on admission - A1c: 8.7 - currently on lantus -a lot of improvement in blood glucose control -continue to monitor #Elevated troponin - suspect demand and poor clearance in the setting of ARF - EKG unremarkable - bedside ECHO with adequate contractility of RV and LV #Metabolic encephalopathy - CT head neg - likely due to shock and metabolic derangements #Rectal mass - colonoscopy when pt is medically stable #PAD s/p right fem endarterectomy #Peripheral neuropathy #Hypothyroidism: on levothyroxine 100mcg at home #HLD: rosuvastatin 40mg at home #Chronic lower extremity edema: lasix 40mg daily at home DVT ppx: hep subq , scds Admission and Anticipated Discharge Date Admission Date: August 28, 2024 Subjective patient seen and examined, intuabted, sedated and ventilated Review of Systems Review of Systems: unable to obtain Physical Exam Physical Exam: The patient is intubated , ventilated and sedated HEENT--PERRL, EOMI, mucous membranes and oropharynx mildly dry Neck-- No JVD. No bruits. Thyroid normal, trachea midline, no adenopathy. Heart--normal S1 and S2. No murmurs, rubs or gallops. Lungs--clear bilaterally, no respiratory distress, no accessory muscle use. Abdomen--normal bowel sounds and soft. Extremities--mild edema Dermatologic--normal skin turgor, normal color, no abnormal lymph nodes, no rash. Neurologic--intubated Results & Data Results & Data Vital Signs (Past 12 Hours) Vital Signs Temp Pulse Pulse Resp BP Pulse Ox O2 Del Method 09/01/24 15:13 88 22 100 09/01/24 15:06 98.6 F 88 16 97 09/01/24 15:01 123/67 09/01/24 14:00 84 188/68 H 09/01/24 13:40 98.6 F 84 09/01/24 12:00 09/01/24 12:00 80 170/64 H 09/01/24 11:00 98.6 F 80 16 95 Mechanical Vent 09/01/24 10:52 82 19 97 09/01/24 10:06 98.4 F 85 23 91 09/01/24 10:00 142/90 H 09/01/24 08:00 Mechanical Vent 09/01/24 08:00 79 09/01/24 08:00 09/01/24 08:00 82 09/01/24 07:36 16 09/01/24 05:36 98.4 F 82 16 92 09/01/24 05:30 98.4 F 82 16 91 09/01/24 05:15 98.4 F 83 17 94 09/01/24 05:03 98.6 F 84 16 92 09/01/24 05:00 128/62 09/01/24 05:00 128/62 09/01/24 05:00 128/62 09/01/24 04:57 98.6 F 83 16 09/01/24 04:51 98.6 F 83 17 09/01/24 04:45 98.8 F 83 17 90 FiO2 09/01/24 15:13 40 09/01/24 15:06 09/01/24 15:01 09/01/24 14:00 09/01/24 13:40 09/01/24 12:00 40 09/01/24 12:00 09/01/24 11:00 40 09/01/24 10:52 60 09/01/24 10:06 09/01/24 10:00 09/01/24 08:00 40 09/01/24 08:00 09/01/24 08:00 40 09/01/24 08:00 09/01/24 07:36 40 09/01/24 05:36 09/01/24 05:30 09/01/24 05:15 09/01/24 05:03 09/01/24 05:00 09/01/24 05:00 09/01/24 05:00 09/01/24 04:57 09/01/24 04:51 09/01/24 04:45 PG Care Time/CCT Total # of Minutes Spent Total Time Spent with Patient: Total time spent is greater than 50% in coordination of care (as documented) at patient's floor/unit and/or counseling patient: Coding Level of Care Code 25412 SUB INP/OBS CARE 2/35MIN Diagnoses Admitted to intensive care unit Z78.9 Shock R57.9 DKA (diabetic ketoacidosis) E13.11 Diabetes mellitus complication detail: with coma Diabetes mellitus type: other specified (including SHILPA) ARF (acute renal failure) N17.9 Encephalopathy G93.40 Metabolic acidosis E87.20 Time Spent (min) 35 (3) DKA (diabetic ketoacidosis) Diabetes mellitus complication detail: with coma Diabetes mellitus type: other specified (including SHILPA) Qualified Code(s): E13.11 - Other specified diabetes mellitus with ketoacidosis with coma
[2024-09-01] MEDS: PEPTAMEN INTENSE VHP 1.0 CAL 1,000 ML BAG OG SCH (17:39)
[2024-09-01] MEDS: hydrALAZINE HCL 20 MG/ML VIAL IV PRN (20:07)
[2024-09-02 05:10] LABS: Basophils # (auto) 0.02 K/uL (0.00-0.20); Basophils % (auto) 0.1 %; Eosinophils # (auto) 0.02 K/uL (0.00-0.50); Eosinophils % (auto) 0.1 %; Hemoglobin 10.6 g/dl (12.0-16.0); Immature Granulocytes # (auto) 0.11 K/uL (0.01-0.20); Immature Granulocytes % (auto) 0.8 %; Lymphocytes # (auto) 1.16 K/uL (1.20-3.40); Lymphocytes % (auto) 8.4 %; Mean Corpuscular Hemoglobin 30.1 pg (25.0-34.0); Mean Corpuscular Hgb Conc 34.2 g/dL (32.0-36.0); Mean Corpuscular Volume 88.1 fL (80.0-100.0); Mean Platelet Volume 10.8 fL (9.4-12.4); Monocytes # (auto) 1.39 K/uL (0.11-0.59); Monocytes % (auto) 10.1 %; Neutrophils # (auto) 11.11 K/uL (1.40-6.50); Neutrophils % (auto) 80.5 %; Platelet Count 73 K/uL (130-400); RDW Coefficient of Variation 13.7 % (11.5-14.5); RDW Standard Deviation 44.3 fL (36.4-46.3); Red Blood Count 3.52 M/uL (4.20-5.40); White Blood Count 13.81 K/ul (4.8-10.8)
[2024-09-02 05:29] LABS: BUN Creatinine Ratio 13.5 (10-20); Calcium 8.2 mg/dl (8.6-10.3); Creatinine Clr Calc Pharmacy 12.4 ml/min; Magnesium 2.3 mg/dl (1.7-2.4); Potassium 4.6 mmol/L (3.5-5.1)
--- NOTE | 2024-09-02 09:39 | Critical Care Progress Note ---
Date of Service September 02, 2024 Assessment & Plan (1) DKA (diabetic ketoacidosis): (2) ARF (acute renal failure): (3) Encephalopathy: (4) Shock: (5) Metabolic acidosis: (6) Mass in rectum: (7) Peripheral arterial disease: (8) Dyslipidemia: (9) Diabetes mellitus type 1 with complications: (10) Hypothyroidism: Plan Reason Critically Ill: 63 YOF with reported ~ 3day history of abdominal pain, nausea/vomiting, no oral intake and not taking insulin- no in the ICU intubated and sedated with severe acidemia, elevated blood glucose, shock with end organ dysfunction. Currently requiring escalating dose of vasopressors and acid base support as well as insulin infusion. 24-hour events: No overnight events. Tolerated HD yesterday. Plan for HD today as well. Scant urine output. Recommendations: Neuro - Currently sedated. Suspect encephalopathy likely metabolic in etiology. Imaging showed no acute abnormalities. Currently sedated with fentanyl. Continue with Fentanyl PRN boluses for pain. Cardiac - Patient presented with multifactorial shock. Pressors are now off. Troponin was mildly elevated likely secondary to supply/demand mismatch. Respiratory - Patient was initially intubated due to hypoxemic respiratory failure and reintubated due to to encephalopathy. Her vent settings today are relatively minimal however her metabolic disarray may preclude vent liberation. Doing better today. Will hold off on extubation trail until tomorrow after she undergoes HD this afternoon to hope for maximization prior to consideration of vent liberation. GI - GERD, ? colon mass. Not an intervention candidate currently per GI. Continue PPI. Continue tube feeding. RENAL/LYTES - Acute renal failure with minimal urine output and worsening renal indices. Nephrology consultation reviewed. - No acute needs Continue with [facility] END[facility] - Continue Synthroid. Glycemic control per ICU protocol. Presented with severe DKA. Gap closed. HEME - Leukocytosis with thrombocytopenia which appears to be worsening. No evidence of hemolytic anemia. Afebrile. No purpura. Possibly related to Zosyn currently day #6. Discontinue antibiotics and follow. ID: Day #6 empiric Zosyn. Cultures negative to date. Procalcitonin was elevated on presentation. --DNR Okay for vasopressors --Prophylaxis VTE: Heparin hold GI: Pantoprazole Lines: Right radial, LEFT groin HD Cath. Diet: Tube feeds Patient is critically ill at this point in time with multiorgan system dysfunction. A total of 45 minutes in critical care time was spent in evaluation management stabilization of this patient. No family immediately available. Prognosis guarded Admission and Anticipated Discharge Date Admission Date: August 28, 2024 Supervising Physician Co-Signing Physician Notes Patient seen and examined. EMR reviewed. Discussed with critical care CHRISTOPHER and agree with assessment plan as noted. Patient continues to have waxing waning mental status. Will continue mechanical ventilation and intubation today in the hopes that additional dialysis this afternoon might improve her metabolic encephalopathy. Will assess for extubation in the a.m.. Continue current supportive care. No family immediately available. Subjective Patient seen and evaluated bedside. Overnight events noted. Discussion about patient at morning rounds. Review of Systems Review of Systems: Unable to obtain. Physical Exam Physical Exam: VITAL SIGNS - Vital signs and nursing notes were reviewed. GENERAL - 63-year-old female appearing her stated age who is intubated. SKIN - Without rashes. HEAD - NC/AT. EYES - PERRL with EOMI bilaterally. Sclera anicteric. NOSE - Midline and without cyanosis. No epistaxis or purulent drainage noted. MOUTH/OROPHARYNX - ETT in place. Without perioral cyanosis. LUNGS - Diminished breath sounds bilaterally. CARDIAC - RRR with S1/S2. No murmur, rubs, or gallops appreciated. ABDOMEN - Abdominal contour obese without pulsations or visible masses. BS normoactive all four quadrants. No tenderness, palpable masses, hepatosplenomegaly, or ascites noted. EXTREMITIES - No clubbing or peripheral cyanosis. NEUROLOGIC -no focal neurological deficits. Limited secondary to the state of sedation. Results & Data Results & Data Vital Signs (Past 12 Hours) Vital Signs Temp Pulse Resp BP Pulse Ox O2 Del Method FiO2 09/02/24 08:34 84 16 97 30 09/02/24 08:00 30 09/02/24 08:00 81 09/02/24 07:51 37.1 C 81 16 99 09/02/24 07:45 37.2 C 80 17 98 09/02/24 07:42 37.2 C 77 16 99 09/02/24 07:33 37.2 C 79 16 100 09/02/24 07:20 Mechanical Vent 30 09/02/24 07:15 37.2 C 79 16 99 09/02/24 07:06 37.2 C 79 16 98 09/02/24 07:03 37.2 C 78 16 98 09/02/24 07:00 97/53 L 09/02/24 06:48 78 09/02/24 04:57 37.2 C 79 16 98 09/02/24 04:51 37.3 C 78 16 98 09/02/24 04:45 37.3 C 78 16 97 09/02/24 04:36 37.3 C 78 16 97 09/02/24 04:33 37.4 C 79 16 97 09/02/24 04:24 37.4 C 77 16 98 09/02/24 04:00 127/65 09/02/24 04:00 127/65 09/02/24 04:00 30 09/02/24 03:51 37.3 C 79 16 99 09/02/24 03:27 37.3 C 79 16 99 09/02/24 03:15 37.3 C 78 16 98 09/02/24 03:06 37.3 C 77 16 97 09/02/24 03:00 37.3 C 79 16 96 09/02/24 03:00 86/53 L 09/02/24 02:59 77 16 97 30 09/02/24 02:42 37.4 C 79 16 98 09/02/24 02:36 37.4 C 77 16 98 09/02/24 02:21 37.3 C 82 16 97 09/02/24 02:15 37.3 C 85 16 97 09/02/24 02:12 37.3 C 85 16 97 09/02/24 02:00 37.3 C 81 16 98 09/02/24 01:57 37.3 C 82 16 99 09/02/24 01:54 37.3 C 81 16 98 09/02/24 01:45 37.3 C 83 16 98 09/02/24 01:42 37.3 C 83 16 98 09/02/24 01:36 37.3 C 84 16 98 09/02/24 01:30 37.4 C 84 16 98 09/02/24 01:24 37.4 C 84 16 97 09/02/24 01:15 37.4 C 91 H 16 99 09/02/24 01:12 37.4 C 89 17 98 09/02/24 01:00 123/60 09/02/24 01:00 123/60 09/02/24 00:45 37.5 C 92 H 15 97 09/02/24 00:30 37.5 C 92 H 17 96 09/02/24 00:06 37.6 C H 93 H 16 95 09/02/24 00:00 97/52 L 09/02/24 00:00 30 09/02/24 00:00 98 H 09/01/24 23:51 37.5 C 96 H 18 95 09/01/24 23:33 37.4 C 99 H 18 97 09/01/24 23:15 37.4 C 91 H 16 95 09/01/24 23:12 97 H 20 95 30 09/01/24 23:00 99/52 L 09/01/24 22:48 37.5 C 95 H 17 93 09/01/24 22:30 37.5 C 98 H 17 92 09/01/24 22:06 37.5 C 99 H 20 90 09/01/24 22:00 119/57 L 09/01/24 21:54 37.4 C 99 H 19 91 Coding Level of Care Code 30714 CRITICAL CARE 1ST 30-74M Diagnoses DKA (diabetic ketoacidosis) E13.11 Diabetes mellitus complication detail: with coma Diabetes mellitus type: other specified (including SHILPA) ARF (acute renal failure) N17.9 Encephalopathy G93.40 Shock R57.9 Metabolic acidosis E87.20 Mass in rectum K62.89 Peripheral arterial disease I73.9 Dyslipidemia E78.5 Diabetes mellitus type 1 with complications E10.8 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
--- NOTE | 2024-09-02 10:07 | Nephrology Progress Note ---
Date of Service September 02, 2024 Assessment & Plan (1) LIDAI (acute kidney injury): (2) DKA (diabetic ketoacidosis): (3) Oliguria: Plan 63-year-old F admitted after patient was found unresponsive at home with history of 1 week history of nausea, vomiting and diarrhea. On admission noted to be in DKA, intubated. Developed LIDIA with progressive worsening of kidney function most likely secondary to ATN in setting of hypotension, DKA, volume depletion, creatinine up to 6.4 this morning with baseline normal kidney function, baseline creatinine 0.8. Renal ultrasound with mild right-sided hydronephrosis but otherwise unremarkable. Had Temporary dialysis catheter and 3 h HD on 09/01/24. --will do second HD this afternoon for 3 h, try UF 2 L, continue to monitor intake and urine output. Will continue to monitor for renal recovery. Admission and Anticipated Discharge Date Admission Date: August 28, 2024 Subjective Tania was seen and evaluated, remains intubated but awake, blood pressure improved and stable, UO slightly improved, had first HD yesterday. Review of Systems Review of Systems: Unobtainable due to endotracheal tube Physical Exam Constitutional: WD/WN, vitals as above + ill appearing and + mechanically ventilated Respiratory: Auscultation: + diminished lung sounds Cardiovascular: Rate/Rhythm: regular rate and regular rhythm Heart Sounds: normal S1 and normal S2 Extremities: no edema Results & Data Vital Signs (Past 12 Hours) Vital Signs Temp Pulse Resp BP Pulse Ox O2 Del Method FiO2 09/02/24 08:34 84 16 97 30 09/02/24 08:00 30 09/02/24 08:00 81 09/02/24 07:51 37.1 C 81 16 99 09/02/24 07:45 37.2 C 80 17 98 09/02/24 07:42 37.2 C 77 16 99 09/02/24 07:33 37.2 C 79 16 100 09/02/24 07:20 Mechanical Vent 30 09/02/24 07:15 37.2 C 79 16 99 09/02/24 07:06 37.2 C 79 16 98 09/02/24 07:03 37.2 C 78 16 98 09/02/24 07:00 97/53 L 09/02/24 06:48 78 09/02/24 04:57 37.2 C 79 16 98 09/02/24 04:51 37.3 C 78 16 98 09/02/24 04:45 37.3 C 78 16 97 09/02/24 04:36 37.3 C 78 16 97 09/02/24 04:33 37.4 C 79 16 97 09/02/24 04:24 37.4 C 77 16 98 09/02/24 04:00 127/65 09/02/24 04:00 127/65 09/02/24 04:00 30 09/02/24 03:51 37.3 C 79 16 99 09/02/24 03:27 37.3 C 79 16 99 09/02/24 03:15 37.3 C 78 16 98 09/02/24 03:06 37.3 C 77 16 97 09/02/24 03:00 37.3 C 79 16 96 09/02/24 03:00 86/53 L 09/02/24 02:59 77 16 97 30 09/02/24 02:42 37.4 C 79 16 98 09/02/24 02:36 37.4 C 77 16 98 09/02/24 02:21 37.3 C 82 16 97 09/02/24 02:15 37.3 C 85 16 97 09/02/24 02:12 37.3 C 85 16 97 09/02/24 02:00 37.3 C 81 16 98 09/02/24 01:57 37.3 C 82 16 99 09/02/24 01:54 37.3 C 81 16 98 09/02/24 01:45 37.3 C 83 16 98 09/02/24 01:42 37.3 C 83 16 98 09/02/24 01:36 37.3 C 84 16 98 09/02/24 01:30 37.4 C 84 16 98 09/02/24 01:24 37.4 C 84 16 97 09/02/24 01:15 37.4 C 91 H 16 99 09/02/24 01:12 37.4 C 89 17 98 09/02/24 01:00 123/60 09/02/24 01:00 123/60 09/02/24 00:45 37.5 C 92 H 15 97 09/02/24 00:30 37.5 C 92 H 17 96 09/02/24 00:06 37.6 C H 93 H 16 95 09/02/24 00:00 97/52 L 09/02/24 00:00 30 09/02/24 00:00 98 H 09/01/24 23:51 37.5 C 96 H 18 95 09/01/24 23:33 37.4 C 99 H 18 97 09/01/24 23:15 37.4 C 91 H 16 95 09/01/24 23:12 97 H 20 95 30 09/01/24 23:00 99/52 L 09/01/24 22:48 37.5 C 95 H 17 93 09/01/24 22:30 37.5 C 98 H 17 92 09/01/24 22:06 37.5 C 99 H 20 90 PG Care Time/CCT Total # of Minutes Spent Total Time Spent with Patient: Total time spent is greater than 50% in coordination of care (as documented) at patient's floor/unit and/or counseling patient: Coding Level of Care Code 80851 SUB INP/OBS CARE 235MIN Diagnoses LIDIA (acute kidney injury) N17.9 DKA (diabetic ketoacidosis) E11.10 Oliguria R34
--- NOTE | 2024-09-02 14:14 | Hospitalist Progress Note ---
Date of Service September 02, 2024 Assessment & Plan (1) Admitted to intensive care unit: (2) Shock: (3) DKA (diabetic ketoacidosis): (4) ARF (acute renal failure): (5) Encephalopathy: (6) Metabolic acidosis: Plan Patient is a 63 yo female with a PMH of PAD, rectal mass on CT awaiting colonoscopy, DM1, diabetic foot ulcer complicated by osteomyelitis, HLD, peripheral neuropathy, hypothyroidism, & lower extremity edema who presented to [facility] on 08/28/24 after being found unresponsive by her family. She was brought to the ED where glucose was 1262 and she was noted to be in DKA with a pH of 6.92. Procalcitonin was elevated on admission. She was intubated for airway protection and initiated on Bicarb and Levophed. Broad spectrum antibiotics were initiated as infectious process could not be ruled out at the time of admission. Now with worsening renal function and in need of HD #Shock - sepsis vs hypovolemia - remains in the ICU - s/p fluid resuscitation, no longer on pressors - Zosyn has been stopped - BCx NGTD - UCx no pathogenic growth - CXR neg for pna Hypoxic resp failure Patient was intubated to secure her airways currently on ventilator wean as tolerated #Acute renal failure - baseline Cr: 0.8, on admission: 3.11, today 5.88 - due to acute tubular necrosis - nephrology on board -Temprorary HD catheter inserted -Slight improvement after HD yesterday -Continue Hd today per Nephrology #DKA with hyperglycemia - resolved - A1c: 8.7 - currently on lantus -a lot of improvement in blood glucose control -continue to monitor #Elevated troponin - suspect demand and poor clearance in the setting of ARF - EKG unremarkable - bedside ECHO with adequate contractility of RV and LV #Metabolic encephalopathy - CT head neg - likely due to shock and metabolic derangements #Rectal mass - colonoscopy when pt is medically stable #PAD s/p right fem endarterectomy #Peripheral neuropathy #Hypothyroidism: on levothyroxine 100mcg at home #HLD: rosuvastatin 40mg at home #Chronic lower extremity edema: lasix 40mg daily at home DVT ppx: hep subq , scds Admission and Anticipated Discharge Date Admission Date: August 28, 2024 Subjective patient seen and examined, still intubted Review of Systems Review of Systems: unable to obtain Physical Exam Physical Exam: The patient is intubated , ventilated and sedated HEENT--PERRL, EOMI, mucous membranes and oropharynx mildly dry Neck-- No JVD. No bruits. Thyroid normal, trachea midline, no adenopathy. Heart--normal S1 and S2. No murmurs, rubs or gallops. Lungs--clear bilaterally, no respiratory distress, no accessory muscle use. Abdomen--normal bowel sounds and soft. Extremities--mild edema Dermatologic--normal skin turgor, normal color, no abnormal lymph nodes, no rash. Neurologic--intubated Results & Data Results & Data Vital Signs (Past 12 Hours) Vital Signs Temp Pulse Resp BP Pulse Ox O2 Del Method FiO2 09/02/24 12:00 30 09/02/24 12:00 84 09/02/24 11:10 80 16 98 30 09/02/24 08:34 84 16 97 30 09/02/24 08:00 30 09/02/24 08:00 81 09/02/24 07:51 98.8 F 81 16 99 09/02/24 07:45 99.0 F 80 17 98 09/02/24 07:42 99.0 F 77 16 99 09/02/24 07:33 99.0 F 79 16 100 09/02/24 07:20 Mechanical Vent 30 09/02/24 07:15 99.0 F 79 16 99 09/02/24 07:06 99.0 F 79 16 98 09/02/24 07:03 99.0 F 78 16 98 09/02/24 07:00 97/53 L 09/02/24 06:48 78 09/02/24 04:57 99.0 F 79 16 98 09/02/24 04:51 99.1 F 78 16 98 09/02/24 04:45 99.1 F 78 16 97 09/02/24 04:36 99.1 F 78 16 97 09/02/24 04:33 99.3 F 79 16 97 09/02/24 04:24 99.3 F 77 16 98 09/02/24 04:00 127/65 09/02/24 04:00 127/65 09/02/24 04:00 30 09/02/24 03:51 99.1 F 79 16 99 09/02/24 03:27 99.1 F 79 16 99 09/02/24 03:15 99.1 F 78 16 98 09/02/24 03:06 99.1 F 77 16 97 09/02/24 03:00 99.1 F 79 16 96 09/02/24 03:00 86/53 L 09/02/24 02:59 77 16 97 30 09/02/24 02:42 99.3 F 79 16 98 09/02/24 02:36 99.3 F 77 16 98 09/02/24 02:21 99.1 F 82 16 97 09/02/24 02:15 99.1 F 85 16 97 09/02/24 02:12 99.1 F 85 16 97 PG Care Time/CCT Total # of Minutes Spent Total Time Spent with Patient: Total time spent is greater than 50% in coordination of care (as documented) at patient's floor/unit and/or counseling patient: Coding Level of Care Code 82098 SUB INP/OBS CARE 2/35MIN Diagnoses Admitted to intensive care unit Z78.9 Shock R57.9 DKA (diabetic ketoacidosis) E13.11 Diabetes mellitus complication detail: with coma Diabetes mellitus type: other specified (including SHILPA) ARF (acute renal failure) N17.9 Encephalopathy G93.40 Metabolic acidosis E87.20 Time Spent (min) 35 (3) DKA (diabetic ketoacidosis) Diabetes mellitus complication detail: with coma Diabetes mellitus type: other specified (including SHILPA) Qualified Code(s): E13.11 - Other specified diabetes mellitus with ketoacidosis with coma
[2024-09-03 04:44] LABS: Basophils # (auto) 0.03 K/uL (0.00-0.20); Basophils % (auto) 0.3 %; Eosinophils # (auto) 0.07 K/uL (0.00-0.50); Eosinophils % (auto) 0.6 %; Hematocrit (blood only) 30.9 % (37.0-47.0); Hemoglobin 10.3 g/dl (12.0-16.0); Immature Granulocytes # (auto) 0.17 K/uL (0.01-0.20); Immature Granulocytes % (auto) 1.5 %; Lymphocytes # (auto) 1.63 K/uL (1.20-3.40); Lymphocytes % (auto) 14.4 %; Mean Corpuscular Hemoglobin 29.4 pg (25.0-34.0); Mean Corpuscular Hgb Conc 33.3 g/dL (32.0-36.0); Mean Corpuscular Volume 88.3 fL (80.0-100.0); Mean Platelet Volume 10.6 fL (9.4-12.4); Monocytes # (auto) 1.69 K/uL (0.11-0.59); Neutrophils # (auto) 7.71 K/uL (1.40-6.50); Neutrophils % (auto) 68.2 %; Platelet Count 95 K/uL (130-400); RDW Coefficient of Variation 13.6 % (11.5-14.5); RDW Standard Deviation 44.2 fL (36.4-46.3)
[2024-09-03 04:58] LABS: BUN Creatinine Ratio 13.5 (10-20); Calcium 8.1 mg/dl (8.6-10.3); Creatinine Clr Calc Pharmacy 12.8 ml/min; Magnesium 2.3 mg/dl (1.7-2.4); Potassium 4.4 mmol/L (3.5-5.1)
[2024-09-03] MEDS: LANSOPRAZOLE 30 MG SOLTAB OG SCH (07:46)
--- NOTE | 2024-09-03 08:21 | Critical Care Progress Note ---
Date of Service September 03, 2024 Assessment & Plan (1) DKA (diabetic ketoacidosis): (2) ARF (acute renal failure): (3) Encephalopathy: (4) Shock: (5) Metabolic acidosis: (6) Mass in rectum: (7) Peripheral arterial disease: (8) Dyslipidemia: (9) Diabetes mellitus type 1 with complications: (10) Hypothyroidism: Plan Reason Critically Ill: 63 YOF with reported ~ 3day history of abdominal pain, nausea/vomiting, no oral intake and not taking insulin- no in the ICU intubated and sedated with severe acidemia, elevated blood glucose, shock with end organ dysfunction. Extubated but required reintubation due to encephalopathy and tachypnea. Now on hemodialysis 24-hour events: Additional session of HD yesterday. Hemodynamically stable off all vasopressor agents. Currently on sedation break to assess for vent liberation. Recommendations: Neuro -sedation break this morning suspect encephalopathy likely metabolic in etiology. Imaging showed no acute abnormalities. If continued sedation required, may consider alternative agent such as Precedex or propofol Cardiac - Patient presented with multifactorial shock. Pressors are now off. Troponin was mildly elevated likely secondary to supply/demand mismatch. Discontinue arterial line. Respiratory - Patient was initially intubated due to hypoxemic respiratory failure and reintubated due to to encephalopathy. Minimal vent settings this morning. Awaiting improvement in mental status to pursue additional trial of vent liberation. If fails repeatedly, consideration for PDT might be appropriate. Currently day #6 mechanical ventilation. GI - GERD, ? rectal mass. Not an intervention candidate currently per GI. Continue PPI. Hold tube feedings and hopeful vent liberation but restart if unable to liberate this morning. Continue bowel regiment RENAL/LYTES - Acute renal failure with minimal urine output and worsening renal indices. Nephrology consultation reviewed. Dialysis per nephrology. - No acute needs ENDO - Continue Synthroid. Glycemic control per ICU protocol. Presented with severe DKA. Gap closed. Insulin management per pharmacy HEME -platelets recovering. Mild anemia which is stable with no evidence of blood loss. ID: Completed course of empiric Zosyn. Cultures no growth to date. --DNR Okay for vasopressors --Prophylaxis VTE: Heparin hold GI: Pantoprazole Lines: Right radial, LEFT groin HD Cath. Diet: Tube feeds Patient is critically ill at this point in time with multiorgan system dysfunction. A total of 50 minutes in critical care time was spent in evaluation management stabilization of this patient. No family immediately available. Prognosis guarded Admission and Anticipated Discharge Date Admission Date: August 28, 2024 Subjective Patient seen and examined. EMR reviewed. Discussed with bedside critical care nurse and on multidisciplinary rounds as well as with overnight critical care CHRISTOPHER. Patient remains intubated and sedated this morning. She is hemodynamically stable and off vasopressor agents Review of Systems Review of Systems: Unobtainable due to endotracheal tube Physical Exam Constitutional: + ill appearing and + mechanically venti lated Neck: trachea midline, no thyromegaly Respiratory: no labored breathing Auscultation: + rhonchi Cardiovascular: RRR, no murmur, no edema Gastrointestinal (Abdomen): normal bowel sounds, soft, nontender, no hepatosplenomegaly Musculoskeletal: Extremities: extremities normal to inspection Skin: no rashes, warm and dry Neurologic: Sedated Lymphatic: no cervical lymphadenopathy Results & Data Results & Data Vital Signs (Past 12 Hours) Vital Signs Temp Pulse Resp BP Pulse Ox Pulse Ox O2 Del Method 09/03/24 06:00 37.6 C H 77 16 97 09/03/24 06:00 125/61 09/03/24 06:00 125/61 09/03/24 06:00 125/61 09/03/24 06:00 97 Mechanical Vent 09/03/24 05:03 37.5 C 75 16 98 09/03/24 05:00 113/56 L 09/03/24 05:00 113/56 L 09/03/24 04:45 37.5 C 75 16 98 09/03/24 04:06 37.5 C 74 16 98 09/03/24 04:00 09/03/24 03:45 74 17 97 09/03/24 03:00 37.5 C 73 16 98 09/03/24 03:00 108/55 L 09/03/24 03:00 108/55 L 09/03/24 02:30 37.5 C 75 16 98 09/03/24 02:00 37.4 C 74 16 98 09/03/24 02:00 124/60 09/03/24 02:00 124/60 09/03/24 02:00 124/60 09/03/24 02:00 124/60 09/03/24 01:36 37.4 C 75 16 98 09/03/24 01:15 37.5 C 79 16 98 09/03/24 00:48 37.5 C 70 16 98 09/03/24 00:09 37.5 C 71 16 99 09/03/24 00:00 72 09/03/24 00:00 138/71 09/03/24 00:00 09/02/24 23:25 72 16 99 09/02/24 23:18 37.5 C 70 16 99 09/02/24 23:00 106/55 L 09/02/24 22:57 37.5 C 71 16 99 09/02/24 22:06 37.5 C 73 16 97 09/02/24 22:00 107/57 L 09/02/24 22:00 107/57 L 09/02/24 21:48 37.5 C 75 16 97 09/02/24 21:33 37.4 C 77 16 97 09/02/24 21:01 74 16 97 09/02/24 21:00 103/55 L 09/02/24 21:00 37.4 C 75 16 97 09/02/24 20:48 37.4 C 75 16 98 FiO2 09/03/24 06:00 09/03/24 06:00 09/03/24 06:00 09/03/24 06:00 09/03/24 06:00 09/03/24 05:03 09/03/24 05:00 09/03/24 05:00 09/03/24 04:45 09/03/24 04:06 09/03/24 04:00 30 09/03/24 03:45 30 09/03/24 03:00 09/03/24 03:00 09/03/24 03:00 09/03/24 02:30 09/03/24 02:00 09/03/24 02:00 09/03/24 02:00 09/03/24 02:00 09/03/24 02:00 09/03/24 01:36 09/03/24 01:15 09/03/24 00:48 09/03/24 00:09 09/03/24 00:00 09/03/24 00:00 09/03/24 00:00 30 09/02/24 23:25 30 09/02/24 23:18 09/02/24 23:00 09/02/24 22:57 09/02/24 22:06 09/02/24 22:00 09/02/24 22:00 09/02/24 21:48 09/02/24 21:33 09/02/24 21:01 30 09/02/24 21:00 09/02/24 21:00 09/02/24 20:48 Critical Care Results & Data Vital Signs (Past 12 Hours) Vital Signs Temp Pulse Resp BP Pulse Ox Pulse Ox O2 Del Method 09/03/24 06:00 37.6 C H 77 16 97 09/03/24 06:00 125/61 09/03/24 06:00 125/61 09/03/24 06:00 125/61 09/03/24 06:00 97 Mechanical Vent 09/03/24 05:03 37.5 C 75 16 98 09/03/24 05:00 113/56 L 09/03/24 05:00 113/56 L 09/03/24 04:45 37.5 C 75 16 98 09/03/24 04:06 37.5 C 74 16 98 09/03/24 04:00 09/03/24 03:45 74 17 97 09/03/24 03:00 37.5 C 73 16 98 09/03/24 03:00 108/55 L 09/03/24 03:00 108/55 L 09/03/24 02:30 37.5 C 75 16 98 09/03/24 02:00 37.4 C 74 16 98 09/03/24 02:00 124/60 09/03/24 02:00 124/60 09/03/24 02:00 124/60 09/03/24 02:00 124/60 09/03/24 01:36 37.4 C 75 16 98 09/03/24 01:15 37.5 C 79 16 98 09/03/24 00:48 37.5 C 70 16 98 09/03/24 00:09 37.5 C 71 16 99 09/03/24 00:00 72 09/03/24 00:00 138/71 09/03/24 00:00 09/02/24 23:25 72 16 99 09/02/24 23:18 37.5 C 70 16 99 09/02/24 23:00 106/55 L 09/02/24 22:57 37.5 C 71 16 99 09/02/24 22:06 37.5 C 73 16 97 09/02/24 22:00 107/57 L 09/02/24 22:00 107/57 L 09/02/24 21:48 37.5 C 75 16 97 09/02/24 21:33 37.4 C 77 16 97 09/02/24 21:01 74 16 97 09/02/24 21:00 103/55 L 09/02/24 21:00 37.4 C 75 16 97 09/02/24 20:48 37.4 C 75 16 98 FiO2 09/03/24 06:00 09/03/24 06:00 09/03/24 06:00 09/03/24 06:00 09/03/24 06:00 09/03/24 05:03 09/03/24 05:00 09/03/24 05:00 09/03/24 04:45 09/03/24 04:06 09/03/24 04:00 30 09/03/24 03:45 30 09/03/24 03:00 09/03/24 03:00 09/03/24 03:00 09/03/24 02:30 09/03/24 02:00 09/03/24 02:00 09/03/24 02:00 09/03/24 02:00 09/03/24 02:00 09/03/24 01:36 09/03/24 01:15 09/03/24 00:48 09/03/24 00:09 09/03/24 00:00 09/03/24 00:00 09/03/24 00:00 30 09/02/24 23:25 30 09/02/24 23:18 09/02/24 23:00 09/02/24 22:57 09/02/24 22:06 09/02/24 22:00 09/02/24 22:00 09/02/24 21:48 09/02/24 21:33 09/02/24 21:01 30 09/02/24 21:00 09/02/24 21:00 09/02/24 20:48 Lab & Micro Results (Past 24 Hours) RBC 3.50 M/uL (4.20-5.40) L 09/03/24 WBC 11.30 K/ul (4.8-10.8) H 09/03/24 Hgb 10.3 g/dl (12.0-16.0) L 09/03/24 Hct 30.9 % (37.0-47.0) L 09/03/24 MCV 88.3 fL (80.0-100.0) 09/03/24 MCH 29.4 pg (25.0-34.0) 09/03/24 MCHC 33.3 g/dL (32.0-36.0) 09/03/24 RDW Standard Deviation 44.2 fL (36.4-46.3) 09/03/24 RDW Coefficient of Variation 13.6 % (11.5-14.5) 09/03/24 Plt Count 95 K/uL (130-400) L 09/03/24 MPV 10.6 fL (9.4-12.4) 09/03/24 Neutrophils (%) (Auto) 68.2 % 09/03/24 Lymphocytes (%) (Auto) 14.4 % 09/03/24 Monocytes # (Auto) 1.69 K/uL (0.11-0.59) H 09/03/24 Eosinophils # (Auto) 0.07 K/uL (0.00-0.50) 09/03/24 Immature Granulocyte % (Auto) 1.5 % 09/03/24 Neutrophils # (Auto) 7.71 K/uL (1.40-6.50) H 09/03/24 Lymphocytes # (Auto) 1.63 K/uL (1.20-3.40) 09/03/24 Monocytes # (Auto) 1.69 K/uL (0.11-0.59) H 09/03/24 Eosinophils # (Auto) 0.07 K/uL (0.00-0.50) 09/03/24 Basophils # (Auto) 0.03 K/uL (0.00-0.20) 09/03/24 Immature Granulocyte # (Auto) 0.17 K/uL (0.01-0.20) 5 Na 136 mmol/L (136-145) 09/03/24 K 4.4 mmol/L (3.5-5.1) 09/03/24 Cl 102 mmol/L (98-107) 09/03/24 CO2 27 mmol/L (21-32) 09/03/24 Anion Gap 7 (3-11) 09/03/24 BUN 72 mg/dl (6-23) H 09/03/24 Creatinine 5.34 mg/dl (0.6-1.2) H* 09/03/24 BUN/Creatinine Ratio 13.5 (10-20) 09/03/24 Glu 173 mg/dl (70-99(Fasting)) H 09/03/24 Ca 8.1 mg/dl (8.6-10.3) L 09/03/24 Mg 2.3 mg/dl (1.7-2.4) 09/03/24 04:24 Calcium Level 8.1 mg/dl (8.6-10.3) L 09/03/24 04:24 Microbiology 08/28/24 22:47 Aerobic Blood Culture - Final Blood No growth in Aerobic bottle after 5 days. Anaerobic Blood Culture - Final No growth in Anaerobic bottle after 5 days. 08/28/24 22:47 Aerobic Blood Culture - Final Blood No growth in Aerobic bottle after 5 days. Anaerobic Blood Culture - Final No growth in Anaerobic bottle after 5 days. I & O Totals 24 Hours 09/02/24 09/03/24 09/04/24 06:59 06:59 06:59 Intake Total 1454.083 / 1454.083 94.958 / 94.958 88.750 / 88.750 Output Total 615 / 615 395 / 395 Balance 839.083 / 839.083 -300.042 / -300.042 88.750 / 88.750 Cumulative 08/28/24 17:53 thru 09/03/24 07:45 Intake Total 11086.517 Output Total 3750 Balance 53219.517 RT Ventilator Mngmt (Last Documented) Ventilator Ordered Settings Ventilator Support Mode Assist Control 09/03/24 04:00 Respiratory Rate 16 09/03/24 06:00 Ventilator Tidal Volume 380 09/03/24 04:00 Setting Minute Ventilation 6.4 09/03/24 03:45 Positive End Expiratory 8 09/03/24 04:00 Pressure Fraction of Inspired Oxygen 30 09/03/24 04:00 Machine Comment found on 30% FIO2 09/01/24 19:41 Ventilator - PT Measurements Respiratory Rate 16 Exhaled Tidal Volume 380 Minute Ventilation 6.4 Peak Inspiratory Airway 19 Pressure Plateau Pressure 16 Respiratory Cycle Inspiratory: 1:4.4 Expiratory Ratio Inspiratory Phase Time 0.7 End-Tidal CO2 39 Static Lung Compliance 47.50 Dynamic Lung Compliance 34.55 Normal Static Lung Compliance 48.00 Patient Measurements Comment end tidal co2 monitor changed Coding Level of Care Code 87367 CRITICAL CARE 1ST 30-74M Diagnoses DKA (diabetic ketoacidosis) E13.11 Diabetes mellitus complication detail: with coma Diabetes mellitus type: other specified (including SHILPA) ARF (acute renal failure) N17.9 Encephalopathy G93.40 Shock R57.9 Metabolic acidosis E87.20 Mass in rectum K62.89 Peripheral arterial disease I73.9 Dyslipidemia E78.5 Diabetes mellitus type 1 with complications E10.8 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
--- NOTE | 2024-09-03 09:37 | Nephrology Progress Note ---
Date of Service September 03, 2024 Assessment & Plan (1) LIDIA (acute kidney injury): (2) DKA (diabetic ketoacidosis): (3) Oliguria: Plan 63-year-old F admitted after patient was found unresponsive at home with history of 1 week history of nausea, vomiting and diarrhea. On admission noted to be in DKA, intubated. Developed LIDIA with progressive worsening of kidney function most likely secondary to ATN in setting of hypotension, DKA, volume depletion, creatinine up to 6.4 this morning with baseline normal kidney function, baseline creatinine 0.8. Renal ultrasound with mild right-sided hydronephrosis but otherwise unremarkable. Had Temporary dialysis catheter on 09/01/24 and had dialysis on 09/01 and 09/02. Had 3 L UF yesterday. Volume status, blood pressure improved. Electrolyte acceptable. --Hold dialysis today,continue to monitor intake and urine output. Will continue to monitor for renal recovery. Admission and Anticipated Discharge Date Admission Date: August 28, 2024 Subjective Tania was seen and evaluated, remains intubated but awake, alert, has been on pressor support, breathing on her own, blood pressure improved and stable, UO somewhat low around less than 400 mL over last 24 hours, had second hemodialysis yesterday and had 3 L UF. Volume status improved, electrolyte acceptable. Review of Systems Review of Systems: All systems reviewed & are unremarkable except as noted in Subjective Physical Exam Constitutional: WD/WN, vitals as above + ill appearing Intubated, on CPAP trial Respiratory: Auscultation: + diminished lung sounds Cardiovascular: Rate/Rhythm: regular rate and regular rhythm Heart Sounds: normal S1 and normal S2 Extremities: no edema Skin: no rashes, warm and dry Neurologic: moves all extremities and awake Psychiatric: Orientation: alert Results & Data Vital Signs (Past 12 Hours) Vital Signs Temp Pulse Resp BP Pulse Ox Pulse Ox O2 Del Method 09/03/24 09:17 37.6 C H 84 24 125/61 99 09/03/24 08:37 84 24 99 09/03/24 08:00 09/03/24 08:00 84 09/03/24 06:53 85 09/03/24 06:00 37.6 C H 77 16 97 09/03/24 06:00 125/61 09/03/24 06:00 125/61 09/03/24 06:00 125/61 09/03/24 06:00 97 Mechanical Vent 09/03/24 05:03 37.5 C 75 16 98 09/03/24 05:00 113/56 L 09/03/24 05:00 113/56 L 09/03/24 04:45 37.5 C 75 16 98 09/03/24 04:06 37.5 C 74 16 98 09/03/24 04:00 09/03/24 03:45 74 17 97 09/03/24 03:00 37.5 C 73 16 98 09/03/24 03:00 108/55 L 09/03/24 03:00 108/55 L 09/03/24 02:30 37.5 C 75 16 98 09/03/24 02:00 37.4 C 74 16 98 09/03/24 02:00 124/60 09/03/24 02:00 124/60 09/03/24 02:00 124/60 09/03/24 02:00 124/60 09/03/24 01:36 37.4 C 75 16 98 09/03/24 01:15 37.5 C 79 16 98 09/03/24 00:48 37.5 C 70 16 98 09/03/24 00:09 37.5 C 71 16 99 09/03/24 00:00 72 09/03/24 00:00 138/71 09/03/24 00:00 09/02/24 23:25 72 16 99 09/02/24 23:18 37.5 C 70 16 99 09/02/24 23:00 106/55 L 09/02/24 22:57 37.5 C 71 16 99 09/02/24 22:06 37.5 C 73 16 97 09/02/24 22:00 107/57 L 09/02/24 22:00 107/57 L 09/02/24 21:48 37.5 C 75 16 97 09/02/24 21:33 37.4 C 77 16 97 FiO2 09/03/24 09:17 30 09/03/24 08:37 30 09/03/24 08:00 30 09/03/24 08:00 09/03/24 06:53 09/03/24 06:00 09/03/24 06:00 09/03/24 06:00 09/03/24 06:00 09/03/24 06:00 09/03/24 05:03 09/03/24 05:00 09/03/24 05:00 09/03/24 04:45 09/03/24 04:06 09/03/24 04:00 30 09/03/24 03:45 30 09/03/24 03:00 09/03/24 03:00 09/03/24 03:00 09/03/24 02:30 09/03/24 02:00 09/03/24 02:00 09/03/24 02:00 09/03/24 02:00 09/03/24 02:00 09/03/24 01:36 09/03/24 01:15 09/03/24 00:48 09/03/24 00:09 09/03/24 00:00 09/03/24 00:00 09/03/24 00:00 30 09/02/24 23:25 30 09/02/24 23:18 09/02/24 23:00 09/02/24 22:57 09/02/24 22:06 09/02/24 22:00 09/02/24 22:00 09/02/24 21:48 09/02/24 21:33 PG Care Time/CCT Total # of Minutes Spent Total Time Spent with Patient: Total time spent is greater than 50% in coordination of care (as documented) at patient's floor/unit and/or counseling patient: Coding Level of Care Code 27353 SUB INP/OBS CARE 2/35MIN Diagnoses LIDIA (acute kidney injury) N17.9 DKA (diabetic ketoacidosis) E11.10 Oliguria R34
[2024-09-03] MEDS ORDERED: PHARMACY GLYCEMIC MGMT CONSULT PRN (10:14)
--- NOTE | 2024-09-03 12:14 | Hospitalist Progress Note ---
Date of Service September 03, 2024 Assessment & Plan (1) Admitted to intensive care unit: (2) Shock: (3) DKA (diabetic ketoacidosis): (4) ARF (acute renal failure): (5) Encephalopathy: (6) Metabolic acidosis: Plan Patient is a 63 yo female with a PMH of PAD, rectal mass on CT awaiting colonoscopy, DM1, diabetic foot ulcer complicated by osteomyelitis, HLD, peripheral neuropathy, hypothyroidism, & lower extremity edema who presented to [facility] on 08/28/24 after being found unresponsive by her family. She was brought to the ED where glucose was 1262 and she was noted to be in DKA with a pH of 6.92. Procalcitonin was elevated on admission. She was intubated for airway protection and initiated on Bicarb and Levophed. Broad spectrum antibiotics were initiated as infectious process could not be ruled out at the time of admission. Now with worsening renal function and in need of HD #Shock - sepsis vs hypovolemia -Improving - remains in the ICU - s/p fluid resuscitation, no longer on pressors - Zosyn has been stopped - BCx NGTD - UCx no pathogenic growth - CXR neg for pna Hypoxic resp failure Patient was intubated to secure her airways currently on ventilator, but awake and alert today, on sedation break today wean as tolerated #Acute renal failure - due to acute tubular necrosis - nephrology on board -Temprorary HD catheter inserted -Some improvement after HD x 2 -Hold HD today per Nephrology to monitor for renal recovery #DKA with hyperglycemia - resolved - A1c: 8.7 - currently on lantus -a lot of improvement in blood glucose control -continue to monitor #Elevated troponin - suspect demand and poor clearance in the setting of ARF - EKG unremarkable - bedside ECHO with adequate contractility of RV and LV #Metabolic encephalopathy - CT head neg - likely due to shock and metabolic derangements #Rectal mass - colonoscopy when pt is medically stable #PAD s/p right fem endarterectomy #Peripheral neuropathy #Hypothyroidism: on levothyroxine 100mcg at home #HLD: rosuvastatin 40mg at home #Chronic lower extremity edema: lasix 40mg daily at home DVT ppx: hep subq , scds Admission and Anticipated Discharge Date Admission Date: August 28, 2024 Subjective patient seen and examined, still intubated, but awake and alert and follows instructions Review of Systems Review of Systems: unable to obtain Physical Exam Physical Exam: The patient is intubated ,awake and alert HEENT--PERRL, EOMI, mucous membranes and oropharynx mildly dry Neck-- No JVD. No bruits. Thyroid normal, trachea midline, no adenopathy. Heart--normal S1 and S2. No murmurs, rubs or gallops. Lungs--clear bilaterally, no respiratory distress, no accessory muscle use. Abdomen--normal bowel sounds and soft. Extremities--mild edema Dermatologic--normal skin turgor, normal color, no abnormal lymph nodes, no rash. Neurologic--intubated Results & Data Results & Data Vital Signs (Past 12 Hours) Vital Signs Temp Pulse Resp BP Pulse Ox Pulse Ox O2 Del Method 09/03/24 09:17 99.7 F H 84 24 125/61 99 09/03/24 08:37 84 24 99 09/03/24 08:00 09/03/24 08:00 84 09/03/24 06:53 85 09/03/24 06:00 99.7 F H 77 16 97 09/03/24 06:00 125/61 09/03/24 06:00 125/61 09/03/24 06:00 125/61 09/03/24 06:00 97 Mechanical Vent 09/03/24 05:03 99.5 F 75 16 98 09/03/24 05:00 113/56 L 09/03/24 05:00 113/56 L 09/03/24 04:45 99.5 F 75 16 98 09/03/24 04:06 99.5 F 74 16 98 09/03/24 04:00 09/03/24 03:45 74 17 97 09/03/24 03:00 99.5 F 73 16 98 09/03/24 03:00 108/55 L 09/03/24 03:00 108/55 L 09/03/24 02:30 99.5 F 75 16 98 09/03/24 02:00 99.3 F 74 16 98 09/03/24 02:00 124/60 09/03/24 02:00 124/60 09/03/24 02:00 124/60 09/03/24 02:00 124/60 09/03/24 01:36 99.3 F 75 16 98 09/03/24 01:15 99.5 F 79 16 98 09/03/24 00:48 99.5 F 70 16 98 FiO2 09/03/24 09:17 30 09/03/24 08:37 30 09/03/24 08:00 30 09/03/24 08:00 09/03/24 06:53 09/03/24 06:00 09/03/24 06:00 09/03/24 06:00 09/03/24 06:00 09/03/24 06:00 09/03/24 05:03 09/03/24 05:00 09/03/24 05:00 09/03/24 04:45 09/03/24 04:06 09/03/24 04:00 30 09/03/24 03:45 30 09/03/24 03:00 09/03/24 03:00 09/03/24 03:00 09/03/24 02:30 09/03/24 02:00 09/03/24 02:00 09/03/24 02:00 09/03/24 02:00 09/03/24 02:00 09/03/24 01:36 09/03/24 01:15 09/03/24 00:48 PG Care Time/CCT Total # of Minutes Spent Total Time Spent with Patient: Total time spent is greater than 50% in coordination of care (as documented) at patient's floor/unit and/or counseling patient: Coding Level of Care Code 85737 SUB INP/OBS CARE 2/35MIN Diagnoses Admitted to intensive care unit Z78.9 Shock R57.9 DKA (diabetic ketoacidosis) E13.11 Diabetes mellitus complication detail: with coma Diabetes mellitus type: other specified (including SHILPA) ARF (acute renal failure) N17.9 Encephalopathy G93.40 Metabolic acidosis E87.20 Time Spent (min) 35 (3) DKA (diabetic ketoacidosis) Diabetes mellitus complication detail: with coma Diabetes mellitus type: other specified (including SHILPA) Qualified Code(s): E13.11 - Other specified diabetes mellitus with ketoacidosis with coma
--- NOTE | 2024-09-03 12:55 | Pharmacy Report ---
Pharmacy Glycemic Short Note 2 - Date of Service September 03, 2024 - Glycemic Short BSG Results (Last 24 hours): 09/02/24 09/02/24 09/03/24 16:32 19:39 00:05 Glucose POC Glucose 131 H 158 H 148 H 09/03/24 09/03/24 09/03/24 03:53 04:24 07:28 Glucose 173 H POC Glucose 151 H 130 H 09/03/24 11:10 Glucose POC Glucose 142 H OUTPATIENT ANTIDIABETIC REGIMEN: * Lantus 15 units SQ BID * Novolog 8 units w/ each meal * A1c = 8.7% ASSESSMENT: * Type 1 diabetic admitted for severe DKA due to ~3 day h/o NV and abdominal pain with omission of insulin, hypotension requiring pressors, severe LIDIA and resp failure requiring intubation. * Severe LIDIA persists, now receiving RECORDS ANALYST in the form of intermittent HD (performed 09/01 and 09/02) * Patient was extubated this AM, tube feeds have been discontinued. * Patient will be at risk for hypoglycemia in setting of no IV or enteral carb provision. May need to consider addition of IV dextrose provision to permit ongoing basal insulin administration to type 1 diabetic. Will scale back basal insulin doses, continue to admin BID to allow for greater flexibility to hold a dose if needed. PLAN FOR INPATIENT GLYCEMIC CONTROL: * Hold outpatient oral diabetes medications * Basal insulin * Lantus SQ BID per scale: 0 units if BSG less than 110; 7 units if BSG 110- 180; 10 units if BSG above 180 * Bolus insulin * NovoLog per scale Q4hrs * Goal Range: Low 110 mg/dL - High 140 mg/dL * Correction Factor: 30 mg/dL/unit * Nutritional / Prandial insulin per carb ratio of 1 unit per 7 grams CHO consumed
[2024-09-03] MEDS: ALBUT/IPRATROP 3MG/0.5MG NEB 3 ML VIAL NEB PRN (19:49)
[2024-09-03] MEDS: ACETAMINOPHEN 1,000 MG/100 ML VIAL IV PRN (20:38)
[2024-09-04 04:43] LABS: Basophils # (auto) 0.06 K/uL (0.00-0.20); Basophils % (auto) 0.4 %; Eosinophils # (auto) 0.09 K/uL (0.00-0.50); Eosinophils % (auto) 0.7 %; Hematocrit (blood only) 35.4 % (37.0-47.0); Hemoglobin 12.1 g/dl (12.0-16.0); Immature Granulocytes # (auto) 0.61 K/uL (0.01-0.20); Immature Granulocytes % (auto) 4.5 %; Lymphocytes # (auto) 1.83 K/uL (1.20-3.40); Lymphocytes % (auto) 13.6 %; Mean Corpuscular Hemoglobin 29.5 pg (25.0-34.0); Mean Corpuscular Hgb Conc 34.2 g/dL (32.0-36.0); Mean Corpuscular Volume 86.3 fL (80.0-100.0); Mean Platelet Volume 10.1 fL (9.4-12.4); Monocytes # (auto) 1.94 K/uL (0.11-0.59); Monocytes % (auto) 14.5 %; Neutrophils # (auto) 8.88 K/uL (1.40-6.50); Neutrophils % (auto) 66.3 %; Platelet Count 166 K/uL (130-400); RDW Coefficient of Variation 13.2 % (11.5-14.5); RDW Standard Deviation 41.9 fL (36.4-46.3); White Blood Count 13.41 K/ul (4.8-10.8)
[2024-09-04 05:01] LABS: Albumin Level 2.8 gm/dl (3.4-5.0); Calcium 8.4 mg/dl (8.6-10.3); Creatinine Clr Calc Pharmacy 11.6 ml/min; Magnesium 2.4 mg/dl (1.7-2.4); Phosphorus 3.7 mg/dl (2.5-4.9); Potassium 4.5 mmol/L (3.5-5.1)
--- NOTE | 2024-09-04 08:47 | Critical Care Progress Note ---
Date of Service September 04, 2024 Assessment & Plan (1) DKA (diabetic ketoacidosis): (2) ARF (acute renal failure): (3) Encephalopathy: (4) Shock: (5) Metabolic acidosis: (6) Mass in rectum: (7) Peripheral arterial disease: (8) Dyslipidemia: (9) Diabetes mellitus type 1 with complications: (10) Hypothyroidism: Plan Reason Critically Ill: 63 YOF with reported ~ 3day history of abdominal pain, nausea/vomiting, no oral intake and not taking insulin- no in the ICU intubated and sedated with severe acidemia, elevated blood glucose, shock with end organ dysfunction. Extubated but required reintubation due to encephalopathy and tachypnea. Now on hemodialysis 24-hour events: Extubated. Remains off pressors. Oxygen requirement has resolved. Recommendations: Neuro -significantly deconditioned. Requires aggressive physical therapy and Occupational Therapy however her femoral HD line precludes getting her up out of bed currently. Cardiac - Patient presented with multifactorial shock. She is now he modynamically stable. Respiratory -liberated from mechanical ventilation 09/03/2024. She is doing well clinically. Continue incentive spirometry. Volume management per nephrology. GI - GERD, ? rectal mass. Not an intervention candidate currently per GI. Continue PPI. Speech therapy evaluation this morning. Hopefully can advance diet. If not may need to consider nasoenteric access. RENAL/LYTES - Acute renal failure with minimal urine output and worsening renal indices. Per nephrology. Plan for attempted dialysis today. Need to get the femoral HD catheter out to allow for the patient to get out of bed and participate in physical therapy and Occupational Therapy and also decrease risk of infection. Per conversation with the dialysis nurse, the catheter was poorly functional during her last HD run. If the catheter is not functioning today, it will be removed and will defer to nephrology long-term HD access plan - No acute needs ENDO - Continue Synthroid. Glycemic control per ICU protocol. Pharmacy managing insulin HEME -platelets covered. Mild anemia which is stable with no evidence of blood loss. Restart DVT prophy thousand ID: Completed course of empiric Zosyn. Cultures no growth to date. --DNR --Prophylaxis VTE: Subcu heparin GI: Pantoprazole Lines: Right radial, LEFT groin HD Cath. Diet: Pending speech evaluation Patient's critical care issues have resolved. She is responding appropriately to therapy. She is eligible to transfer out of the intensive care unit. Critical care services will sign off. Okay to contact us with questions or concerns Admission and Anticipated Discharge Date Admission Date: August 28, 2024 Subjective Patient seen and examined. EMR reviewed. Patient is awake alert and conversant. She has been extubated. She does not complain of shortness of breath. She has a rhonchorous cough. She is down to room air. They attempted dialysis a few days ago however the catheter may not have been functional as her numbers did not really respond. Plan is to attempt dialysis again today. Unclear what her plan is for long-term HD access Review of Systems Review of Systems: All systems reviewed & are unremarkable except as noted in Subjective Physical Exam Constitutional: + ill appearing Neck: trachea midline, no thyromegaly Respiratory: no labored breathing Auscultation: + rhonchi Cardiovascular: RRR, no murmur, no edema Gastrointestinal (Abdomen): normal bowel sounds, soft, nontender, no hepatosplenomegaly Musculoskeletal: Extremities: extremities normal to inspection Skin: no rashes, warm and dry Lymphatic: no cervical lymphadenopathy Results & Data Results & Data Vital Signs (Past 12 Hours) Vital Signs Temp Pulse Pulse Resp BP Pulse Ox Pulse Ox 09/04/24 08:28 82 17 96 09/04/24 08:00 09/04/24 08:00 83 09/04/24 07:00 36.8 C 85 20 110/60 92 09/04/24 06:37 77 18 96 09/04/24 06:00 154/73 H 09/04/24 06:00 154/73 H 09/04/24 06:00 94 09/04/24 05:54 36.7 C 79 24 96 09/04/24 05:30 134/82 09/04/24 05:18 36.8 C 81 23 97 09/04/24 05:03 36.8 C 77 24 97 09/04/24 05:00 133/75 09/04/24 05:00 133/75 09/04/24 05:00 133/75 09/04/24 04:57 36.8 C 79 21 97 09/04/24 04:39 36.8 C 83 24 95 09/04/24 04:00 152/78 H 09/04/24 04:00 152/78 H 09/04/24 03:57 36.8 C 84 24 94 09/04/24 03:03 36.8 C 77 17 94 09/04/24 03:00 143/74 H 09/04/24 03:00 143/74 H 09/04/24 03:00 143/74 H 09/04/24 03:00 143/74 H 09/04/24 02:42 36.8 C 79 22 93 09/04/24 02:36 36.8 C 83 17 94 09/04/24 02:30 135/72 09/04/24 02:30 135/72 09/04/24 01:59 36.9 C 81 23 97 09/04/24 01:30 127/59 L 09/04/24 01:30 127/59 L 09/04/24 01:30 127/59 L 09/04/24 01:08 36.8 C 79 14 95 09/04/24 01:00 135/69 09/04/24 01:00 135/69 09/04/24 01:00 135/69 09/04/24 00:59 36.8 C 86 18 94 09/04/24 00:30 132/70 09/04/24 00:30 132/70 09/04/24 00:23 36.9 C 84 93 09/04/24 00:05 36.9 C 88 95 09/04/24 00:00 83 09/04/24 00:00 111/59 L 09/03/24 23:31 134/72 09/03/24 23:11 37.1 C 93 H 16 95 09/03/24 23:00 146/76 H 09/03/24 23:00 146/76 H 09/03/24 22:54 36.9 C 91 H 25 H 98 09/03/24 22:30 37.2 C 92 H 19 98 09/03/24 22:30 149/85 H 09/03/24 22:30 149/85 H 09/03/24 22:30 149/85 H 09/03/24 22:24 37.2 C 90 15 98 09/03/24 22:00 121/84 09/03/24 22:00 121/84 09/03/24 21:51 37.2 C 83 22 100 O2 Del Method O2 Del Method 09/04/24 08:28 Room Air 09/04/24 08:00 Room Air 09/04/24 08:00 09/04/24 07:00 Room Air 09/04/24 06:37 Room Air 09/04/24 06:00 09/04/24 06:00 09/04/24 06:00 Room Air 09/04/24 05:54 09/04/24 05:30 09/04/24 05:18 09/04/24 05:03 09/04/24 05:00 09/04/24 05:00 09/04/24 05:00 09/04/24 04:57 09/04/24 04:39 09/04/24 04:00 09/04/24 04:00 09/04/24 03:57 09/04/24 03:03 09/04/24 03:00 09/04/24 03:00 09/04/24 03:00 09/04/24 03:00 09/04/24 02:42 09/04/24 02:36 09/04/24 02:30 09/04/24 02:30 09/04/24 01:59 09/04/24 01:30 09/04/24 01:30 09/04/24 01:30 09/04/24 01:08 09/04/24 01:00 09/04/24 01:00 09/04/24 01:00 09/04/24 00:59 09/04/24 00:30 09/04/24 00:30 09/04/24 00:23 09/04/24 00:05 09/04/24 00:00 09/04/24 00:00 09/03/24 23:31 09/03/24 23:11 09/03/24 23:00 09/03/24 23:00 09/03/24 22:54 09/03/24 22:30 09/03/24 22:30 09/03/24 22:30 09/03/24 22:30 09/03/24 22:24 09/03/24 22:00 09/03/24 22:00 09/03/24 21:51 Critical Care Results & Data Vital Signs (Past 12 Hours) Vital Signs Temp Pulse Pulse Resp BP Pulse Ox Pulse Ox 09/04/24 08:28 82 17 96 09/04/24 08:00 09/04/24 08:00 83 09/04/24 07:00 36.8 C 85 20 110/60 92 09/04/24 06:37 77 18 96 09/04/24 06:00 154/73 H 09/04/24 06:00 154/73 H 09/04/24 06:00 94 09/04/24 05:54 36.7 C 79 24 96 09/04/24 05:30 134/82 09/04/24 05:18 36.8 C 81 23 97 09/04/24 05:03 36.8 C 77 24 97 09/04/24 05:00 133/75 09/04/24 05:00 133/75 09/04/24 05:00 133/75 09/04/24 04:57 36.8 C 79 21 97 09/04/24 04:39 36.8 C 83 24 95 09/04/24 04:00 152/78 H 09/04/24 04:00 152/78 H 09/04/24 03:57 36.8 C 84 24 94 09/04/24 03:03 36.8 C 77 17 94 09/04/24 03:00 143/74 H 09/04/24 03:00 143/74 H 09/04/24 03:00 143/74 H 09/04/24 03:00 143/74 H 09/04/24 02:42 36.8 C 79 22 93 09/04/24 02:36 36.8 C 83 17 94 09/04/24 02:30 135/72 09/04/24 02:30 135/72 09/04/24 01:59 36.9 C 81 23 97 09/04/24 01:30 127/59 L 09/04/24 01:30 127/59 L 09/04/24 01:30 127/59 L 09/04/24 01:08 36.8 C 79 14 95 09/04/24 01:00 135/69 09/04/24 01:00 135/69 09/04/24 01:00 135/69 09/04/24 00:59 36.8 C 86 18 94 09/04/24 00:30 132/70 09/04/24 00:30 132/70 09/04/24 00:23 36.9 C 84 93 09/04/24 00:05 36.9 C 88 95 09/04/24 00:00 83 09/04/24 00:00 111/59 L 09/03/24 23:31 134/72 09/03/24 23:11 37.1 C 93 H 16 95 09/03/24 23:00 146/76 H 09/03/24 23:00 146/76 H 09/03/24 22:54 36.9 C 91 H 25 H 98 09/03/24 22:30 37.2 C 92 H 19 98 09/03/24 22:30 149/85 H 09/03/24 22:30 149/85 H 09/03/24 22:30 149/85 H 09/03/24 22:24 37.2 C 90 15 98 09/03/24 22:00 121/84 09/03/24 22:00 121/84 09/03/24 21:51 37.2 C 83 22 100 O2 Del Method O2 Del Method 09/04/24 08:28 Room Air 09/04/24 08:00 Room Air 09/04/24 08:00 09/04/24 07:00 Room Air 09/04/24 06:37 Room Air 09/04/24 06:00 09/04/24 06:00 09/04/24 06:00 Room Air 09/04/24 05:54 09/04/24 05:30 09/04/24 05:18 09/04/24 05:03 09/04/24 05:00 09/04/24 05:00 09/04/24 05:00 09/04/24 04:57 09/04/24 04:39 09/04/24 04:00 09/04/24 04:00 09/04/24 03:57 09/04/24 03:03 09/04/24 03:00 09/04/24 03:00 09/04/24 03:00 09/04/24 03:00 09/04/24 02:42 09/04/24 02:36 09/04/24 02:30 09/04/24 02:30 09/04/24 01:59 09/04/24 01:30 09/04/24 01:30 09/04/24 01:30 09/04/24 01:08 09/04/24 01:00 09/04/24 01:00 09/04/24 01:00 09/04/24 00:59 09/04/24 00:30 09/04/24 00:30 09/04/24 00:23 09/04/24 00:05 09/04/24 00:00 09/04/24 00:00 09/03/24 23:31 09/03/24 23:11 09/03/24 23:00 09/03/24 23:00 09/03/24 22:54 09/03/24 22:30 09/03/24 22:30 09/03/24 22:30 09/03/24 22:30 09/03/24 22:24 09/03/24 22:00 09/03/24 22:00 09/03/24 21:51 Lab & Micro Results (Past 24 Hours) RBC 4.10 M/uL (4.20-5.40) L 09/04/24 WBC 13.41 K/ul (4.8-10.8) H 09/04/24 Hgb 12.1 g/dl (12.0-16.0) 09/04/24 Hct 35.4 % (37.0-47.0) L 09/04/24 MCV 86.3 fL (80.0-100.0) 09/04/24 MCH 29.5 pg (25.0-34.0) 09/04/24 MCHC 34.2 g/dL (32.0-36.0) 09/04/24 RDW Standard Deviation 41.9 fL (36.4-46.3) 09/04/24 RDW Coefficient of Variation 13.2 % (11.5-14.5) 09/04/24 Plt Count 166 K/uL (130-400) 09/04/24 MPV 10.1 fL (9.4-12.4) 09/04/24 Neutrophils (%) (Auto) 66.3 % 09/04/24 Lymphocytes (%) (Auto) 13.6 % 09/04/24 Monocytes # (Auto) 1.94 K/uL (0.11-0.59) H 09/04/24 Eosinophils # (Auto) 0.09 K/uL (0.00-0.50) 09/04/24 Immature Granulocyte % (Auto) 4.5 % 09/04/24 Neutrophils # (Auto) 8.88 K/uL (1.40-6.50) H 09/04/24 Lymphocytes # (Auto) 1.83 K/uL (1.20-3.40) 09/04/24 Monocytes # (Auto) 1.94 K/uL (0.11-0.59) H 09/04/24 Eosinophils # (Auto) 0.09 K/uL (0.00-0.50) 09/04/24 Basophils # (Auto) 0.06 K/uL (0.00-0.20) 09/04/24 Immature Granulocyte # (Auto) 0.61 K/uL (0.01-0.20) H 09/04 Na 137 mmol/L (136-145) 09/04/24 K 4.5 mmol/L (3.5-5.1) 09/04/24 Cl 101 mmol/L (98-107) 09/04/24 CO2 22 mmol/L (21-32) 09/04/24 Anion Gap 14 (3-11) H 09/04/24 BUN 83 mg/dl (6-23) H 09/04/24 Creatinine 5.92 mg/dl (0.6-1.2) H* 09/04/24 BUN/Creatinine Ratio 14.0 (10-20) 09/04/24 Glu 129 mg/dl (70-99(Fasting)) H 09/04/24 Ca 8.4 mg/dl (8.6-10.3) L 09/04/24 Phosphorus Level 3.7 mg/dl (2.5-4.9) 09/04/24 Albumin 2.8 gm/dl (3.4-5.0) L 09/04/24 Mg 2.4 mg/dl (1.7-2.4) 09/04/24 03:53 Calcium Level 8.4 mg/dl (8.6-10.3) L 09/04/24 03:53 Microbiology 08/28/24 22:47 Aerobic Blood Culture - Final Blood No growth in Aerobic bottle after 5 days. Anaerobic Blood Culture - Final No growth in Anaerobic bottle after 5 days. 08/28/24 22:47 Aerobic Blood Culture - Final Blood No growth in Aerobic bottle after 5 days. Anaerobic Blood Culture - Final No growth in Anaerobic bottle after 5 days. I & O Totals 24 Hours 09/03/24 09/04/24 09/05/24 06:59 06:59 06:59 Intake Total 94.958 / 94.958 188.750 / 188.750 Output Total 395 / 395 513 / 513 Balance -300.042 / -300.042 -324.250 / -324.250 Cumulative 08/28/24 17:53 thru 09/04/24 06:41 Intake Total 54814.517 Output Total 4263 Balance 91526.517 RT Ventilator Mngmt (Last Documented) Ventilator Ordered Settings Ventilator Support Mode Assist Control 09/03/24 08:37 Respiratory Rate 17 09/04/24 08:28 Ventilator Tidal Volume 380 09/03/24 08:37 Setting Minute Ventilation 8.1 09/03/24 08:37 Positive End Expiratory 8 09/03/24 08:37 Pressure Fraction of Inspired Oxygen 30 09/03/24 09:17 Machine Comment found on 30% FIO2 09/01/24 19:41 Ventilator - PT Measurements Respiratory Rate 17 Exhaled Tidal Volume 378 Minute Ventilation 8.1 Peak Inspiratory Airway 23 Pressure Plateau Pressure 17.3 Respiratory Cycle Inspiratory: 1:4.1 Expiratory Ratio Inspiratory Phase Time 0.7 End-Tidal CO2 38 Static Lung Compliance 40.65 Dynamic Lung Compliance 25.20 Normal Static Lung Compliance 47.00 Patient Measurements Comment end tidal co2 monitor changed Coding Level of Care Code 55817 SUB INP/OBS CARE 3/50MIN Diagnoses DKA (diabetic ketoacidosis) E13.11 Diabetes mellitus complication detail: with coma Diabetes mellitus type: other specified (including SHILPA) ARF (acute renal failure) N17.9 Encephalopathy G93.40 Shock R57.9 Metabolic acidosis E87.20 Mass in rectum K62.89 Peripheral arterial disease I73.9 Dyslipidemia E78.5 Diabetes mellitus type 1 with complications E10.8 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
[2024-09-04] MEDS: HEPARIN SOD 5,000 UNIT/0.5 ML VIAL SQ SCH (09:03)
[2024-09-04] MEDS ORDERED: ACETAMINOPHEN 500 MG TAB PO PRN (09:52)
--- NOTE | 2024-09-04 10:38 | Nephrology Progress Note ---
Date of Service September 04, 2024 Assessment & Plan (1) LIDIA (acute kidney injury): (2) DKA (diabetic ketoacidosis): (3) Oliguria: Plan 63-year-old F admitted after patient was found unresponsive at home with history of 1 week history of nausea, vomiting and diarrhea. On admission noted to be in DKA, intubated. Developed LIDIA with progressive worsening of kidney function most likely secondary to ATN in setting of hypotension, DKA, volume depletion, creatinine up to 6.4 this morning with baseline normal kidney function, baseline creatinine 0.8. Renal ultrasound with mild right-sided hydronephrosis but otherwise unremarkable. Had Temporary dialysis catheter on 09/01/24 and had dialysis on 09/01 and 09/02. Creatinine continues to rise sharply off of dialysis yesterday but electrolyte acceptable. Extubated yesterday, breathing comfortably on room air although urine output has been low. Dialysis attempted this morning but temporary dialysis catheter was not working. --remove temporary dialysis catheter. Continue to monitor volume status, Kidney function and electrolyte. --Bumex 2 mg IV x 1 dose today. --Tentatively plan for tunneled dialysis catheter tomorrow however if over next 24 hours urine output improved and kidney functions stabilize, may be able to cancel plan for dialysis catheter and continue to monitor for renal recovery. Admission and Anticipated Discharge Date Admission Date: August 28, 2024 Janel Marin was seen and evaluated this morning. She was extubated yesterday, has been breathing comfortably, oxygen saturation normal on room air without requiring nasal cannula oxygen. Urine output remains slow around less than 4 mL mL over 24 hours. Rapid rise in creatinine noted without dialysis yesterday but electrolyte acceptable. Planned to have dialysis this morning but temporary dialysis catheter has not been working. Review of Systems Review of Systems: Detailed review of system was done and pertinent positives and negatives are mentioned above. Physical Exam Constitutional: WD/WN, vitals as above + ill appearing Respiratory: Auscultation: + diminished lung sounds Cardiovascular: Rate/Rhythm: regular rate and regular rhythm Heart Sounds: normal S1 and normal S2 Extremities: no edema Skin: no rashes, warm and dry Neurologic: moves all extremities and awake Psychiatric: Orientation: alert Results & Data Vital Signs (Past 12 Hours) Vital Signs Temp Pulse Pulse Resp BP Pulse Ox Pulse Ox 09/04/24 08:28 82 17 96 09/04/24 08:00 09/04/24 08:00 83 09/04/24 07:00 36.8 C 85 20 110/60 92 09/04/24 06:37 77 18 96 09/04/24 06:00 154/73 H 09/04/24 06:00 154/73 H 09/04/24 06:00 94 09/04/24 05:54 36.7 C 79 24 96 09/04/24 05:30 134/82 09/04/24 05:18 36.8 C 81 23 97 09/04/24 05:03 36.8 C 77 24 97 09/04/24 05:00 133/75 09/04/24 05:00 133/75 09/04/24 05:00 133/75 09/04/24 04:57 36.8 C 79 21 97 09/04/24 04:39 36.8 C 83 24 95 09/04/24 04:00 152/78 H 09/04/24 04:00 152/78 H 09/04/24 03:57 36.8 C 84 24 94 09/04/24 03:03 36.8 C 77 17 94 09/04/24 03:00 143/74 H 09/04/24 03:00 143/74 H 09/04/24 03:00 143/74 H 09/04/24 03:00 143/74 H 09/04/24 02:42 36.8 C 79 22 93 09/04/24 02:36 36.8 C 83 17 94 09/04/24 02:30 135/72 09/04/24 02:30 135/72 09/04/24 01:59 36.9 C 81 23 97 09/04/24 01:30 127/59 L 09/04/24 01:30 127/59 L 09/04/24 01:30 127/59 L 09/04/24 01:08 36.8 C 79 14 95 09/04/24 01:00 135/69 09/04/24 01:00 135/69 09/04/24 01:00 135/69 09/04/24 00:59 36.8 C 86 18 94 09/04/24 00:30 132/70 09/04/24 00:30 132/70 09/04/24 00:23 36.9 C 84 93 09/04/24 00:05 36.9 C 88 95 09/04/24 00:00 83 09/04/24 00:00 111/59 L 09/03/24 23:31 134/72 09/03/24 23:11 37.1 C 93 H 16 95 09/03/24 23:00 146/76 H 09/03/24 23:00 146/76 H 09/03/24 22:54 36.9 C 91 H 25 H 98 O2 Del Method O2 Del Method 09/04/24 08:28 Room Air 09/04/24 08:00 Room Air 09/04/24 08:00 09/04/24 07:00 Room Air 09/04/24 06:37 Room Air 09/04/24 06:00 09/04/24 06:00 09/04/24 06:00 Room Air 09/04/24 05:54 09/04/24 05:30 09/04/24 05:18 09/04/24 05:03 09/04/24 05:00 09/04/24 05:00 09/04/24 05:00 09/04/24 04:57 09/04/24 04:39 09/04/24 04:00 09/04/24 04:00 09/04/24 03:57 09/04/24 03:03 09/04/24 03:00 09/04/24 03:00 09/04/24 03:00 09/04/24 03:00 09/04/24 02:42 09/04/24 02:36 09/04/24 02:30 09/04/24 02:30 09/04/24 01:59 09/04/24 01:30 09/04/24 01:30 09/04/24 01:30 09/04/24 01:08 09/04/24 01:00 09/04/24 01:00 09/04/24 01:00 09/04/24 00:59 09/04/24 00:30 09/04/24 00:30 09/04/24 00:23 09/04/24 00:05 09/04/24 00:00 09/04/24 00:00 09/03/24 23:31 09/03/24 23:11 09/03/24 23:00 09/03/24 23:00 09/03/24 22:54 PG Care Time/CCT Total # of Minutes Spent Total Time Spent with Patient: Total time spent is greater than 50% in coordination of care (as documented) at patient's floor/unit and/or counseling patient: Coding Level of Care Code 61211 SUB INP/OBS CARE 2/35MIN Diagnoses LIDIA (acute kidney injury) N17.9 DKA (diabetic ketoacidosis) E11.10 Oliguria R34
[2024-09-04] MEDS: BUMETANIDE 2 MG in SYRINGE 0 ML IV ONE (11:35)
[2024-09-04] MEDS: INSULIN ASPART PER UNIT CHARGE SC SCH (11:42)
--- NOTE | 2024-09-04 11:46 | Hospitalist Progress Note ---
Date of Service September 04, 2024 Assessment & Plan (1) Admitted to intensive care unit: (2) Shock: (3) DKA (diabetic ketoacidosis): (4) ARF (acute renal failure): (5) Encephalopathy: (6) Metabolic acidosis: Plan Patient is a 63 yo female with a PMH of PAD, rectal mass on CT awaiting colonoscopy, DM1, diabetic foot ulcer complicated by osteomyelitis, HLD, peripheral neuropathy, hypothyroidism, & lower extremity edema who presented to [facility] on 08/28/24 after being found unresponsive by her family. She was brought to the ED where glucose was 1262 and she was noted to be in DKA with a pH of 6.92. Procalcitonin was elevated on admission. She was intubated for airway protection and initiated on Bicarb and Levophed. Broad spectrum antibiotics were initiated as infectious process could not be ruled out at the time of admission. Now with worsening renal function and in need of HD #Shock Resolved Hypoxic resp failure Resolved Now extubated Saturating well on room air completed a course of zosyn for suspected PNA. Now on Cefazolin. cultures negative so far #Acute renal failure - due to acute tubular necrosis - nephrology on board -Temprorary HD catheter inserted -Nephrology on board -Some worsening of cr after Hd was held for one day #DKA with hyperglycemia - resolved - A1c: 8.7 - currently on lantus -a lot of improvement in blood glucose control -continue to monitor #Elevated troponin - suspect demand and poor clearance in the setting of ARF - EKG unremarkable - bedside ECHO with adequate contractility of RV and LV #Metabolic encephalopathy - CT head neg - likely due to shock and metabolic derangements -Resolved Patient now awake and alert and oriented #Rectal mass - colonoscopy when pt is medically stable #PAD s/p right fem endarterectomy #Peripheral neuropathy #Hypothyroidism: on levothyroxine 100mcg at home #HLD: rosuvastatin 40mg at home #Chronic lower extremity edema: lasix 40mg daily at home Deconditioning PT/OT will need the femoral HD access relocated so to enable her participate fully in PT DVT ppx: hep subq , scds Transfererd out of ICU Admission and Anticipated Discharge Date Admission Date: August 28, 2024 Subjective patient is now extubated, awake and alert and oriented Review of Systems Review of Systems: All systems reviewed are negative, apart from the ones contained in the history. Physical Exam Physical Exam: The patient is awake, alert and oriented 3, well developed and well nourished, normocephalic and atraumatic, lying in bed and in no acute distress. HEENT--PERRL, EOMI, mucous membranes and oropharynx mildly dry Neck--supple. No JVD. No bruits. Thyroid normal, trachea midline, no adenopathy. Heart--normal S1 and S2. No murmurs, rubs or gallops. Lungs--clear bilaterally, no respiratory distress, no accessory muscle use. Abdomen--normal bowel sounds and soft. Extremities--no cyanosis or clubbing. No edema. Dermatologic--normal skin turgor, normal color, no abnormal lymph nodes, no rash. Neurologic--cranial nerves II through XII grossly intact. Rheumatologic--normal range of motion. Psychiatric--normal affect. Results & Data Results & Data Vital Signs (Past 12 Hours) Vital Signs Temp Pulse Pulse Resp BP Pulse Ox Pulse Ox 09/04/24 08:28 82 17 96 09/04/24 08:00 09/04/24 08:00 83 09/04/24 07:00 98.2 F 85 20 110/60 92 09/04/24 06:37 77 18 96 09/04/24 06:00 154/73 H 09/04/24 06:00 154/73 H 09/04/24 06:00 94 09/04/24 05:54 98.1 F 79 24 96 09/04/24 05:30 134/82 09/04/24 05:18 98.2 F 81 23 97 09/04/24 05:03 98.2 F 77 24 97 09/04/24 05:00 133/75 09/04/24 05:00 133/75 09/04/24 05:00 133/75 09/04/24 04:57 98.2 F 79 21 97 09/04/24 04:39 98.2 F 83 24 95 09/04/24 04:00 152/78 H 09/04/24 04:00 152/78 H 09/04/24 03:57 98.2 F 84 24 94 09/04/24 03:03 98.2 F 77 17 94 09/04/24 03:00 143/74 H 09/04/24 03:00 143/74 H 09/04/24 03:00 143/74 H 09/04/24 03:00 143/74 H 09/04/24 02:42 98.2 F 79 22 93 09/04/24 02:36 98.2 F 83 17 94 09/04/24 02:30 135/72 09/04/24 02:30 135/72 09/04/24 01:59 98.4 F 81 23 97 09/04/24 01:30 127/59 L 09/04/24 01:30 127/59 L 09/04/24 01:30 127/59 L 09/04/24 01:08 98.2 F 79 14 95 09/04/24 01:00 135/69 09/04/24 01:00 135/69 09/04/24 01:00 135/69 09/04/24 00:59 98.2 F 86 18 94 09/04/24 00:30 132/70 09/04/24 00:30 132/70 09/04/24 00:23 98.4 F 84 93 09/04/24 00:05 98.4 F 88 95 09/04/24 00:00 83 09/04/24 00:00 111/59 L O2 Del Method O2 Del Method 09/04/24 08:28 Room Air 09/04/24 08:00 Room Air 09/04/24 08:00 09/04/24 07:00 Room Air 09/04/24 06:37 Room Air 09/04/24 06:00 09/04/24 06:00 09/04/24 06:00 Room Air 09/04/24 05:54 09/04/24 05:30 09/04/24 05:18 09/04/24 05:03 09/04/24 05:00 09/04/24 05:00 09/04/24 05:00 09/04/24 04:57 09/04/24 04:39 09/04/24 04:00 09/04/24 04:00 09/04/24 03:57 09/04/24 03:03 09/04/24 03:00 09/04/24 03:00 09/04/24 03:00 09/04/24 03:00 09/04/24 02:42 09/04/24 02:36 09/04/24 02:30 09/04/24 02:30 09/04/24 01:59 09/04/24 01:30 09/04/24 01:30 09/04/24 01:30 09/04/24 01:08 09/04/24 01:00 09/04/24 01:00 09/04/24 01:00 09/04/24 00:59 09/04/24 00:30 09/04/24 00:30 09/04/24 00:23 09/04/24 00:05 09/04/24 00:00 09/04/24 00:00 PG Care Time/CCT Total # of Minutes Spent Total Time Spent with Patient: Total time spent is greater than 50% in coordination of care (as documented) at patient's floor/unit and/or counseling patient: Coding Level of Care Code 08663 SUB INP/OBS CARE 2/35MIN Diagnoses Admitted to intensive care unit Z78.9 Shock R57.9 DKA (diabetic ketoacidosis) E13.11 Diabetes mellitus complication detail: with coma Diabetes mellitus type: other specified (including SHILPA) ARF (acute renal failure) N17.9 Encephalopathy G93.40 Metabolic acidosis E87.20 Time Spent (min) 35 (3) DKA (diabetic ketoacidosis) Diabetes mellitus complication detail: with coma Diabetes mellitus type: other specified (including SHILPA) Qualified Code(s): E13.11 - Other specified diabetes mellitus with ketoacidosis with coma
[2024-09-05 07:01] LABS: Basophils # (auto) 0.08 K/uL (0.00-0.20); Basophils % (auto) 0.7 %; Eosinophils # (auto) 0.22 K/uL (0.00-0.50); Eosinophils % (auto) 1.8 %; Hematocrit (blood only) 33.5 % (37.0-47.0); Hemoglobin 11.5 g/dl (12.0-16.0); Immature Granulocytes % (auto) 4.9 %; Lymphocytes # (auto) 1.92 K/uL (1.20-3.40); Lymphocytes % (auto) 15.8 %; Mean Corpuscular Hemoglobin 29.6 pg (25.0-34.0); Mean Corpuscular Hgb Conc 34.3 g/dL (32.0-36.0); Mean Corpuscular Volume 86.3 fL (80.0-100.0); Mean Platelet Volume 9.6 fL (9.4-12.4); Monocytes # (auto) 2.08 K/uL (0.11-0.59); Monocytes % (auto) 17.1 %; Neutrophils # (auto) 7.29 K/uL (1.40-6.50); Neutrophils % (auto) 59.7 %; Platelet Count 206 K/uL (130-400); RDW Coefficient of Variation 13.2 % (11.5-14.5); RDW Standard Deviation 41.4 fL (36.4-46.3); Red Blood Count 3.88 M/uL (4.20-5.40); White Blood Count 12.19 K/ul (4.8-10.8)
[2024-09-05 07:17] LABS: Albumin Level 2.7 gm/dl (3.4-5.0); BUN Creatinine Ratio 12.8 (10-20); Calcium 8.4 mg/dl (8.6-10.3); Creatinine Clr Calc Pharmacy 9.2 ml/min; Magnesium 2.5 mg/dl (1.7-2.4); Phosphorus 4.5 mg/dl (2.5-4.9); Potassium 4.5 mmol/L (3.5-5.1)
--- NOTE | 2024-09-05 09:45 | Consultation ---
Date of Consultation September 05, 2024 Assessment & Plan (1) ARF (acute renal failure): Pt with LIDIA in setting of DKA. Planning on permcath insertion this AM. Procedure, risks, benefits, and alternatives discussed with pt by myself at Dr Fitzgerald's request, she expresses understanding and agreement to proceed. R groin open area nearly healed, no sign of infection. Patient was seen, examined, and chart reviewed. Agree with exam and treatment plan of the Vascular PA. History of Present Illness Reason for Consultation: LIDIA Attending Physician: Augusto Nowak MD History of Present Illness 63 yo f with hx of PAD, HTN, DMI, hypothyroidism, admitted with DKA and found to have LIDIA, seen in consultation today for permcath insertion for HD. 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 Pt admits fatigue/malaise, BURROWS. States the R groin small open area is nearly healed. Denies MOJ[place], fever, chest pain, SOB, abd pain, N/V, rest pain, claudication, other complaints. Allergies Allergy/AdvReac Type Severity Reaction Status Date / Time tetanus toxoid, adsorbed AdvReac Intermediate SWELLING Verified 08/15/24 13:04 AT SITE AND REDNESS Home Medications Medication Instructions Recorded Confirmed Type blood sugar diagnostic (OneTouch 09/04/22 08/28/24 History Ultra Test strips) blood-glucose meter (OneTouch 09/04/22 08/28/24 History Ultra2 Meter) blood-glucose meter,continuous #1 ea 02/26/23 08/28/24 Rx (Dexcom G7 Associate Professor Of Engineering) pen needle, diabetic 32 gauge x #100 ea 02/26/23 08/28/24 Rx 5/16" (Comfort EZ Pen [place]) ibuprofen 200 mg tablet (Advil) 600 mg (3 x 200 mg) PO QID PRN 08/30/23 08/28/24 Rx fever or pain #30 tabs insulin syringe-needle U-100 0.3 #300 ea 02/08/24 08/28/24 Rx mL 31 gauge x 5/16" (BD Insulin Syringe Ultra-Fine) blood-glucose sensor (Dexcom G7 #9 ea 02/14/24 08/28/24 Rx Sensor device) furosemide 40 mg tablet (Lasix) 40 mg PO QAM 06/03/24 08/28/24 History glucagon 3 mg/actuation nasal spray 3 mg intranasal ONCE PRN 06/03/24 08/28/24 History Hypoglycemia oxycodone-acetaminophen 5 mg-325 1 - 2 tab PO Q6H PRN pain #20 tabs 06/06/24 08/28/24 Rx mg tablet (Percocet) insulin glargine 100 unit/mL (3 15 unit (0.15 mL) subcut BID #30 mL 07/23/24 08/28/24 Rx mL) subcutaneous pen (Lantus Solostar U-100 Insulin) levothyroxine 100 mcg tablet 100 mcg PO QAM #90 tabs 07/23/24 08/28/24 Rx rosuvastatin 40 mg tablet 40 mg PO QAM 07/31/24 08/28/24 History insulin aspart U-100 100 unit/mL See Rx Instructions .Route .COMPLEX 08/28/24 08/28/24 History subcutaneous solution Patient History Medical History Post op infection is using a silver coated strip for surgical site infection from the femoral endarterectomy. following with Dr. Fiztgerald's office. Rectal mass found in CT end of June 2024 - reason for upcoming procedure Hx of hypotension (01/2024) Hx of fall (02/04/24) no major injuries Dental caries pt. reports decayed teeth, needs dentures, not loose Sleep-disordered breathing denies sleep study- sister told pt. 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 dickerson - states his PA did not hear a cardiac murmur (05/14/24) Sensory neuropathy feet 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) hx-right foot Lower extremity edema hx - swelling has been much better since starting lasix Shoulder pain left, r/t arthritis Peripheral arterial disease Hx of angiography 06/2023, [facility], bilateral and abdominal aortogram Hyperlipidemia Hypothyroidism Surgical History History of endarterectomy (05/2024) right femoral endarterectomy History of cholecystectomy (1988) during hyster History of appendectomy (1988) during hyster History of tooth extraction History of cataract surgery (02/2024) rt/left History of partial amputation of toe of right foot (07/2023) pt. reports clipping toe nails and accidentally removing entire toe nail, which lead to infection History of carpal tunnel release (08/2023) left Hx of colonoscopy History of tonsillectomy and adenoidectomy (1972) initial sx age 2, revision age 12 Hx of total hysterectomy with removal of both tubes and ovaries at age 28, also removed gallbladder and appendix at same time Family History Mother Myocardial infarction Other No family history of adverse response to anesthesia Denies family history of Ovarian cancer Prostate cancer Breast cancer Colorectal cancer Social History Smoking Status: Never smoker Second Hand Exposure: Yes; Do You Dip or Chew Tobacco: No; Hx Alcohol Use: Yes Alcohol type: beer Alcohol Intake Frequency: Monthly or Less Hx Substance Use: No Preferred Language: [place] Communication Ability: Impaired Visual Impairment: No Limitations Hearing Ability: Normal News Content Specialist Required: No Beliefs That Will Affect Care: None marital status: Single Current Living Situation: Family Current Living Situation Comment: lives with sister's family current occupational status: retired Feels Safe at Home: Yes Childhood Exposure to Second-Hand Smoke: Yes Diet: low carbohydrate caffeine: Yes during the past year weight has: remained stable Dental Care, Regularly: No Physical Activity Frequency: 5-6 Times per Week Seatbelt Use: always Sunscreen Use: No Assistive Devices: None Review of Systems 2 Review of Systems: All systems reviewed & are unremarkable except as noted in HPI & below Physical Exam Constitutional: WD/WN, vitals as above + ill appearing; not in distress Neck: trachea midline Respiratory: normal respiratory effort Auscultation: + diminished lung sounds and + crackles Cardiovascular: Rate/Rhythm: regular rate and regular rhythm Vessels: femoral pulses present, posterior tibial pulses present and dorsalis pedis pulses present; + abnormal peripheral pulses Extremities: normal capillary refill and + edema (generalized) Gastrointestinal (Abdomen): Inspection/Auscultation: abdomen normal to inspection and normal bowel sounds Percussion/Palpation: abdomen soft; abdomen nontender Musculoskeletal: no cyanosis or clubbing, extremities motor strength 5/5 Skin: no rashes, warm and dry Small, shallow open area center of R groin incision area, otherwise well healed. NO erythema, draiange or odor. Neurologic: moves all extremities, awake and + confused (mildly); no focal motor deficits Psychiatric: Orientation: alert and oriented x 3 Affect: + flat affect Results & Data Vital Signs (Past 12 Hours) Vital Signs Temp Pulse Pulse Pulse Resp BP Pulse Ox 09/05/24 09:30 36.7 C 80 20 180/94 H 93 09/05/24 07:50 36.5 C 81 17 170/90 H 94 09/05/24 07:31 79 09/05/24 02:42 36.5 C 87 17 167/73 H 96 09/05/24 00:09 86 09/04/24 22:51 37.0 C 72 20 142/70 H 96 O2 Del Method 09/05/24 09:30 Room Air 09/05/24 07:50 Room Air 09/05/24 07:31 09/05/24 02:42 Room Air 09/05/24 00:09 09/04/24 22:51 Room Air
--- NOTE | 2024-09-05 09:50 | Pre Anesthesia Assessment ---
Date of Service September 05, 2024 Pre Sedation Assessment Vital Signs Temp Pulse Pulse Pulse Resp BP BP 09/05/24 09:30 36.7 C 80 20 180/94 H 09/05/24 07:50 36.5 C 81 17 170/90 H 09/05/24 07:31 79 09/05/24 02:42 36.5 C 87 17 167/73 H 09/05/24 00:09 86 09/04/24 22:51 37.0 C 72 20 142/70 H 09/04/24 19:57 37.0 C 92 H 18 175/76 H 09/04/24 19:39 09/04/24 19:08 89 09/04/24 18:00 95 H 09/04/24 12:03 36.8 C 88 15 130/80 09/04/24 11:00 36.6 C 84 16 125/79 09/04/24 10:03 36.8 C 87 21 118/78 Pulse Ox O2 Del Method 09/05/24 09:30 93 Room Air 09/05/24 07:50 94 Room Air 09/05/24 07:31 09/05/24 02:42 96 Room Air 09/05/24 00:09 09/04/24 22:51 96 Room Air 09/04/24 19:57 96 Room Air 09/04/24 19:39 Room Air 09/04/24 19:08 09/04/24 18:00 09/04/24 12:03 95 09/04/24 11:00 94 09/04/24 10:03 95 Cardiovascular RRR, no murmur, no edema Respiratory normal respiratory effort, lungs clear to auscultation Pre-Sedation Airway Assessment Smoking Status: Never smoker Hx Sleep Apnea: No Hx Difficult Intubation: No Short, Thick Neck: Yes Thyromental Distance: > or= 3.5 Finger Breadths Oral Cavity: + WNL Mallampati Class: III ASA: ASA3 NPO Status Date of Last Intake of Fluids: 09/04/24 Time of Last Intake of Fluids: 21:00 Date of Last Intake of Solid Food: 09/04/24 Time of Last Intake of Solid Foods: 13:00 Procedure Planning Contraindications for Sedation: none Current Medications Reviewed: Yes Notes The planned sedation has been discussed with the patient. Informed Consent was obtained. I have identified the patient, determined the appropriateness of sedation and have assessed the patient immediately prior to the procedure. All medicine(s) and interventions are by my order.
[2024-09-05] MEDS: ceFAZolin 2000MG 2,000 MG/15 ML SYR IV SCH (09:53)
--- NOTE | 2024-09-05 09:56 | Nephrology Progress Note ---
Date of Service September 05, 2024 Assessment & Plan (1) LIDIA (acute kidney injury): (2) DKA (diabetic ketoacidosis): (3) Oliguria: Plan 63-year-old F admitted after patient was found unresponsive at home with 1 week history of nausea, vomiting and diarrhea. On admission noted to be in DKA, intubated. Developed LIDIA , cr 6.0 mg/dl with progressive worsening of kidney function most likely secondary to ATN in setting of hypotension, DKA, volume depletion, with baseline normal kidney function, baseline creatinine 0.8. Renal ultrasound with mild right-sided hydronephrosis but otherwise unremarkable. Had Temporary dialysis catheter on 09/01/24 and had dialysis on 09/01 and 09/02 for progressive worsening of kidney function, oliguria and volume overload. Off of dialysis for last few days as temporary femoral dialysis catheter was not working. Catheter was removed on 09/04/2024. Creatinine continues to rise sharply off of dialysis but electrolyte acceptable. Urine output remains low and clinically seems to be volume overloaded. --Dialysis this afternoon after tunneled dialysis catheter placement --dose meds for eGFR <10 Admission and Anticipated Discharge Date Admission Date: August 28, 2024 Subjective Tania was seen and evaluated this morning. She reports overall feeling poorly, denies significant shortness of breath. Blood pressure running high. Remain oliguric, urine output 400 mL over last 24 hours. Sharp rise in creatinine noted off of dialysis for 2 days, creatinine up to 7.5. Waiting for tunneled dialysis catheter this morning as temporary catheter was not working and removed yesterday. Review of Systems Review of Systems: Detailed review of system was done and pertinent positives and negatives are mentioned above. Physical Exam Constitutional: WD/WN, vitals as above + ill appearing Respiratory: Auscultation: + diminished lung sounds Cardiovascular: Rate/Rhythm: regular rate and regular rhythm Heart Sounds: normal S1 and normal S2 Extremities: no edema Skin: no rashes, warm and dry Neurologic: moves all extremities and awake Psychiatric: Orientation: alert Results & Data Vital Signs (Past 12 Hours) Vital Signs Temp Pulse Pulse Pulse Resp BP Pulse Ox 09/05/24 09:30 36.7 C 80 20 180/94 H 93 09/05/24 07:50 36.5 C 81 17 170/90 H 94 09/05/24 07:31 79 09/05/24 02:42 36.5 C 87 17 167/73 H 96 09/05/24 00:09 86 09/04/24 22:51 37.0 C 72 20 142/70 H 96 O2 Del Method 09/05/24 09:30 Room Air 09/05/24 07:50 Room Air 09/05/24 07:31 09/05/24 02:42 Room Air 09/05/24 00:09 09/04/24 22:51 Room Air PG Care Time/CCT Total # of Minutes Spent Total Time Spent with Patient: Total time spent is greater than 50% in coordination of care (as documented) at patient's floor/unit and/or counseling patient: Coding Level of Care Code 02114 SUB INP/OBS CARE 2/35MIN Diagnoses LIDIA (acute kidney injury) N17.9 DKA (diabetic ketoacidosis) E11.10 Oliguria R34
[2024-09-05] MEDS: fentaNYL citrate PF 100 MCG/2 ML VIAL ONE (10:20)
[2024-09-05] MEDS: LIDOCAINE 1% LOCAL 20 ML VIAL ONE (10:24)
--- NOTE | 2024-09-05 10:33 | Operative Report ---
Post Operative Report Pre & Post Diagnosis Operation Date: 09/05/24 09:55 Pre-Op Diagnosis: Acute Kidney Injury Post-Op Diagnosis: Acute Kidney Injury I identified the patient and participated in the time-out.: Yes Procedure Operation Date: 09/05/24 09:55 Actual Procedures p Insertion Perm Catheter,Right Internal Jugular Approach,Ultasound Localization of Right Internal Jugular Vein,Fluoroscopy for Positioning,(Right) - Gavino Fitzgerald MD Surgeon Gavino Fitzgerald MD Older Worker Specialist none Estimated Blood Loss 5 Findings Consistent with Post-Op Diagnosis Specimens none Anesthesia Type RN Sedation Complications none Disposition Accompanied Patient To Recovery: No Disposition: Recovery Room Indications This is a 63-year-old female with acute kidney injury in need of dialysis. She had been using a temporary line which is no longer functioning. PermCath was recommended. I have discussed the risks options and benefits of the procedure with the patient. The patient understands the risks options and benefits and agrees to the procedure. Description of Procedure Patient was taken to the angio suite and placed in the supine position. The right side of the neck and chest wall were prepped and draped in a sterile manner. The patient was identified and a timeout performed. Local anesthesia was then administered to the appropriate areas of the neck and chest wall. Ultrasound was then used to locate the right internal jugular vein. The vein compressed easily, had no filing defects, and was patent. The vein was then punctured under direct ultrasound imaging. A guidewire was then passed centrally under fluoroscopic imaging. A stab wound was then made in the anterior chest wall and a 19 cm permcath was passed from the stab wound on the chest wall to the puncture site on the neck. The puncture site was then dilated till the 14Fr peel away sheath was inserted. The permcath was then inserted through the sheath to a central position in the distal superior vena cava. The peel away sheath was then removed. The catheter was then sutured in place using nylon sutures. The puncture was then closed using a 4-0 Vicryl subcuticular suture. Dermabond was used for a dressing on the puncture site. Both ports aspirated and flushed easily and were then packed with heparin. A sterile dressing was applied to the catheter. The patient left the operation room in satisfactory condition and tolerated the procedure well. All needle and sponge counts were correct at the end of the procedure. I attest to the content of the Intraoperative Record and any orders documented therein. Any exceptions are noted below.
[2024-09-05] MEDS: LANSOPRAZOLE 30 MG SOLTAB PO SCH (10:55)
[2024-09-05] MEDS: HEPARIN SOD (PORCINE) 5,000 UNITS/ML VIAL ONE (11:01)
[2024-09-05] MEDS: MIDAZOLAM HCL 1 MG/ML 2ML VIAL ONE (11:01)
[2024-09-05] MEDS: LEVOTHYROXINE SODIUM 100 MCG TABLET PO SCH (11:02)
[2024-09-05] MEDS ORDERED: TPN/PPN CONSULT PHARMACY PRN (11:48)
--- NOTE | 2024-09-05 12:12 | Hospitalist Progress Note ---
Date of Service September 05, 2024 Assessment & Plan (1) Admitted to intensive care unit: (2) Shock: (3) DKA (diabetic ketoacidosis): (4) ARF (acute renal failure): (5) Encephalopathy: (6) Metabolic acidosis: Plan Patient is a 63 yo female with a PMH of PAD, rectal mass on CT awaiting colonoscopy, DM1, diabetic foot ulcer complicated by osteomyelitis, HLD, peripheral neuropathy, hypothyroidism, & lower extremity edema who presented to [facility] on 08/28/24 after being found unresponsive by her family. She was brought to the ED where glucose was 1262 and she was noted to be in DKA with a pH of 6.92. Procalcitonin was elevated on admission. She was intubated for airway protection and initiated on Bicarb and Levophed. Broad spectrum antibiotics were initiated as infectious process could not be ruled out at the time of admission. Now with worsening renal function and in need of HD #Shock Resolved Hypoxic resp failure Resolved Now extubated Saturating well on room air completed a course of zosyn for suspected PNA. Now on Cefazolin. cultures negative so far #Acute renal failure - due to acute tubular necrosis - nephrology on board -Temprorary HD catheter inserted -Nephrology on board -Some worsening of cr Now got a tunneled catheter, for HD #DKA with hyperglycemia - resolved - A1c: 8.7 - currently on lantus -a lot of improvement in blood glucose control -continue to monitor #Elevated troponin - suspect demand and poor clearance in the setting of ARF - EKG unremarkable - bedside ECHO with adequate contractility of RV and LV #Metabolic encephalopathy - CT head neg - likely due to shock and metabolic derangements -Resolved Patient now awake and alert and oriented Malnutrition Prolonged NPO status failed swallow eval a couple of times Nutritional services on board will need PPN Vocal cord malfunction/dysphonia likley from intubation patient unable to swallow will need fiberoptic eval will consult ENT #Rectal mass - colonoscopy when pt is medically stable #PAD s/p right fem endarterectomy #Peripheral neuropathy #Hypothyroidism: on levothyroxine 100mcg at home #HLD: rosuvastatin 40mg at home #Chronic lower extremity edema: lasix 40mg daily at home Deconditioning PT/OT DVT ppx: hep subq , scds Transfererd out of ICU Admission and Anticipated Discharge Date Admission Date: August 28, 2024 Subjective patient seen and examined, awake and alert, but feels very weak, with a lot of oral secretions Review of Systems Review of Systems: All systems reviewed are negative, apart from the ones contained in the history. Physical Exam Physical Exam: The patient is awake, alert and oriented 3, well developed and well nourished, normocephalic and atraumatic, lying in bed and in no acute distress. HEENT--PERRL, EOMI, mucous membranes and oropharynx mildly dry Neck--supple. No JVD. No bruits. Thyroid normal, trachea midline, no adenopathy. Heart--normal S1 and S2. No murmurs, rubs or gallops. Lungs--clear bilaterally, no respiratory distress, no accessory muscle use. Abdomen--normal bowel sounds and soft. Extremities--no cyanosis or clubbing. No edema. Dermatologic--normal skin turgor, normal color, no abnormal lymph nodes, no rash. Neurologic--cranial nerves II through XII grossly intact. Rheumatologic--normal range of motion. Psychiatric--normal affect. Results & Data Results & Data Vital Signs (Past 12 Hours) Vital Signs Temp Pulse Pulse Pulse Resp BP Pulse Ox 09/05/24 10:53 98.1 F 84 17 159/91 H 93 09/05/24 10:30 86 28 H 181/90 H 99 09/05/24 10:30 87 33 H 183/93 H 99 09/05/24 10:25 86 30 H 181/98 H 99 09/05/24 10:20 85 32 H 175/98 H 99 09/05/24 10:14 82 26 H 176/92 H 96 09/05/24 09:30 98.1 F 80 20 180/94 H 93 09/05/24 07:50 97.7 F 81 17 170/90 H 94 09/05/24 07:31 79 09/05/24 02:42 97.7 F 87 17 167/73 H 96 09/05/24 00:09 86 O2 Del Method O2 Flow Rate 09/05/24 10:53 Room Air 09/05/24 10:30 Oxymask 2 09/05/24 10:30 Oxymask 2 09/05/24 10:25 Oxymask 2 09/05/24 10:20 Oxymask 2 09/05/24 10:14 Oxymask 2 09/05/24 09:30 Room Air 09/05/24 07:50 Room Air 09/05/24 07:31 09/05/24 02:42 Room Air 09/05/24 00:09 PG Care Time/CCT Total # of Minutes Spent Total Time Spent with Patient: Total time spent is greater than 50% in coordination of care (as documented) at patient's floor/unit and/or counseling patient: Coding Level of Care Code 15923 SUB INP/OBS CARE 2/35MIN Diagnoses Admitted to intensive care unit Z78.9 Shock R57.9 DKA (diabetic ketoacidosis) E13.11 Diabetes mellitus complication detail: with coma Diabetes mellitus type: other specified (including SHILPA) ARF (acute renal failure) N17.9 Encephalopathy G93.40 Metabolic acidosis E87.20 Time Spent (min) 35 (3) DKA (diabetic ketoacidosis) Diabetes mellitus complication detail: with coma Diabetes mellitus type: other specified (including SHILPA) Qualified Code(s): E13.11 - Other specified diabetes mellitus with ketoacidosis with coma
[2024-09-05] MEDS: LANTUS PER UNIT CHARGE SC STA (13:22)
--- NOTE | 2024-09-05 14:01 | Pharmacy Report ---
Pharmacy Glycemic Short Note 2 - Date of Service September 05, 2024 - Glycemic Short BSG Results (Last 24 hours): 09/04/24 09/04/24 09/04/24 18:02 19:32 23:54 Glucose POC Glucose 136 H 162 H 131 H 09/05/24 09/05/24 09/05/24 05:29 06:23 11:49 Glucose 116 H POC Glucose 111 H 145 H OUTPATIENT ANTIDIABETIC REGIMEN: * Lantus 15 units SQ BID * Novolog 8 units w/ each meal * A1c = 8.7% ASSESSMENT: 09/05/24 * Pts BSGs have been mostly in goal since yesterday; 111 this morning and 145 at lunch * Pt continues to be in NPO status and was not given her Lantus dose this morning possibly because of going to the OR for cath placement * Pt also starting PPN today d/t NPO status/inability for using tube feeds. * Will keep NovoLog parameters unchanged and continue same Lantus dosing in addition to one time 5 unit dose at lunch to make up for the one she missed this morning. 09/03/24 * Type 1 diabetic admitted for severe DKA due to ~3 day h/o NV and abdominal pain with omission of insulin, hypotension requiring pressors, severe LIDIA and resp failure requiring intubation. * Severe LIDIA persists, now receiving [employer] in the form of intermittent HD (performed 09/01 and 09/02) * Patient was extubated this AM, tube feeds have been discontinued. * Patient will be at risk for hypoglycemia in setting of no IV or enteral carb provision. May need to consider addition of IV dextrose provision to permit ongoing basal insulin administration to type 1 diabetic. Will scale back basal insulin doses, continue to admin BID to allow for greater flexibility to hold a dose if needed. PLAN FOR INPATIENT GLYCEMIC CONTROL: * Hold outpatient oral diabetes medications * Basal insulin * Lantus SQ BID per scale: 0 units if BSG less than 110; 7 units if BSG 110- 180; 10 units if BSG above 180 * 5 units x1 for lunch today * Bolus insulin * NovoLog per scale Q4hrs * Goal Range: Low 110 mg/dL - High 140 mg/dL * Correction Factor: 30 mg/dL/unit * Nutritional / Prandial insulin per carb ratio of 1 unit per 7 grams CHO consumed
--- NOTE | 2024-09-05 14:18 | Pharmacy Report ---
Pharmacy Initial PN Consult Nt - Date of Service September 05, 2024 - Scope Pharmacy has been consulted on 09/05 to manage parenteral nutrition orders and order appropriate labs. As part of the Nutrition Support Team Guidelines, pharmacy will work in conjunction with dietary when determining the patients caloric needs. - Subjective * The patient is a 63 year old Female admitted on 08/28/24 for DKA,SHOCK,HYPOTENSION. * Patient is to receive parenteral nutrition for prolonged NPO status/unable to place NG tube - Objective Vascular Access: * Patient currently has a peripheral line * Peripheral line was confirmed by IV Team to be acceptable for PPN use on 09/05 Height & Weight (Last Documented) Height 5 ft 7 in Weight 98.8 kg Diet Order(s) 09/05/24 00:01 NPO Intake & Ouput (24hrs) 09/04/24 09/05/24 09/06/24 06:59 06:59 06:59 Intake Total 188.750 / 188.750 Output Total 513 / 513 500 / 500 150 / 150 Balance -324.250 / -324.250 -500 / -500 -150 / -150 Selected Laboratory Results 09/05/24 06:23 Sodium 137 Potassium 4.5 Chloride 102 Carbon Dioxide 22 Anion Gap 13 H BUN 97 H Creatinine 7.57 H* D BUN/Creatinine Ratio 12.8 Glucose 116 H Calcium 8.4 L Phosphorus 4.[address] - Follow Up Nutrition Assessment Start: 08/31/24 19:45 Freq: Status: Active Protocol: Document 09/04/24 15:08 WN (Rec: 09/04/24 15:20 WN [id number]) RD - Initial Nutrition Assessment Start: 08/31/24 19:03 Freq: Status: Active Protocol: Document 08/31/24 19:09 KK (Rec: 08/31/24 19:44 KK [id number]) - Assessment & Plan Assessment: * Appreciate dietitians recommendations for macronutrients. Discussed with provider and planning for PPN today. Concerns for some vocal cord issues, ENT consulted to evaluate but would like to avoid NGT for now. Provider would like volume for PPN to be <1.5 liters. Plan: * For Day #1 of PPN administration, the following will be ordered: * Macronutrients: * Amino Acids: 56 grams/day * Dextrose: 66 grams/day * Lipids: -- grams/day * Micronutrients: * Sodium chloride: 50 mEq/day * Sodium acetate: 50 mEq/day * Potassium chloride: 20 mEq/day * Calcium gluconate: 4.65 mEq/day * Multivitamins: 10 mL/day * Trace elements: 1 mL/day * Thiamine: 100 mg/day * Folic Acid: 1 mg/day * Total volume of 1397 mL will be infused over 24 hours and will provide 448 kcal/day * Patient is on PPN which has a maximum mOsm/L of 900. Final osmolarity of current solution is 816 mOsm/L. * Labs will be ordered per PN protocol. * Pharmacy will follow and adjust PN orders on a daily basis. Thank you!
[2024-09-05] MEDS ORDERED: DEXTROSE 10% 1,000 ML IV PRN (16:00)
[2024-09-05] MEDS: PERIPHERAL TPN IV SCH (17:14)
[2024-09-05] MEDS: [UNRECOGNIZED DRUG - OTHER] IV SCH (17:14)
[2024-09-06 07:55] LABS: Basophils # (auto) 0.07 K/uL (0.00-0.20); Basophils % (auto) 0.6 %; Eosinophils # (auto) 0.19 K/uL (0.00-0.50); Eosinophils % (auto) 1.7 %; Hematocrit (blood only) 35.1 % (37.0-47.0); Hemoglobin 11.8 g/dl (12.0-16.0); Immature Granulocytes # (auto) 0.53 K/uL (0.01-0.20); Immature Granulocytes % (auto) 4.7 %; Lymphocytes # (auto) 1.77 K/uL (1.20-3.40); Lymphocytes % (auto) 15.6 %; Mean Corpuscular Hemoglobin 29.4 pg (25.0-34.0); Mean Corpuscular Hgb Conc 33.6 g/dL (32.0-36.0); Mean Corpuscular Volume 87.3 fL (80.0-100.0); Mean Platelet Volume 9.5 fL (9.4-12.4); Monocytes # (auto) 1.84 K/uL (0.11-0.59); Monocytes % (auto) 16.2 %; Neutrophils # (auto) 6.97 K/uL (1.40-6.50); Neutrophils % (auto) 61.2 %; Platelet Count 199 K/uL (130-400); RDW Coefficient of Variation 13.2 % (11.5-14.5); RDW Standard Deviation 41.8 fL (36.4-46.3); Red Blood Count 4.02 M/uL (4.20-5.40); White Blood Count 11.37 K/ul (4.8-10.8)
[2024-09-06 08:16] LABS: Albumin Level 2.7 gm/dl (3.4-5.0); BUN Creatinine Ratio 11.3 (10-20); Calcium 8.1 mg/dl (8.6-10.3); Creatinine Clr Calc Pharmacy 11.9 ml/min; Magnesium 2.3 mg/dl (1.7-2.4); Phosphorus 4.4 mg/dl (2.5-4.9); Potassium 4.3 mmol/L (3.5-5.1)
--- NOTE | 2024-09-06 10:35 | Nephrology Progress Note ---
Date of Service September 06, 2024 Assessment & Plan (1) LIDIA (acute kidney injury): Plan: LIDIA attributed to ATN in setting of DKA, hypotension + volume depletion. Baseline creatinine <1 mg/dL. Renal ultrasound with mild right-sided hydronephrosis but otherwise unremarkable. Temporary dialysis catheter placed on 09/01/24 w/ HD on 09/01 and 09/02. HD was then held and catheter removed. Creatinine was rising off HD and TDC was placed 09/05/[address] Fitzgerald. HD was completed yesterday for additional clearance/UF. Tania tolerated treatment well. BP and volume status acceptable. Electrolytes normal. No plan for HD today. Will reevaluate tomorrow AM. Document I/O's. Repeat serum metabolic profile tomorrow AM. Medications are appropriately dosed for kidney function. (2) DKA (diabetic ketoacidosis): Plan: Resolved. Improved glucose control. Nutritional support is being provided. (3) Nutritional deficiency: Plan: Remains on PPN. Admission and Anticipated Discharge Date Admission Date: August 28, 2024 Subjective No acute events overnight. Tania was resting comfortably in bed this AM. She feels well. She tolerated HD yesterday without complications. She remains non- oliguric. Breathing comfortably. No fevers or chills. Review of Systems Review of Systems: All systems reviewed & are unremarkable except as noted in HPI & below Physical Exam Constitutional: well developed; no acute distress Eyes: + anicteric sclerae ENMT: Mouth: + oral mucosal abnormality; oral mucous membranes not dry Neck: normal visual inspection and trachea midline RIJ TDC Respiratory: normal respiratory effort Auscultation: lungs clear to auscu ltation bilaterally Cardiovascular: Rate/Rhythm: regular rate Heart Sounds: normal S1 and normal S2 Extremities: + edema (trace) Musculoskeletal: Extremities: no cyanosis and no clubbing Skin: normal turgor; no lesions Neurologic: Motor/Sensory: no tremor and no asterixis Psychiatric: Orientation: alert and oriented x 3 Genitourinary: Stacy Results & Data Vital Signs (Past 12 Hours) Vital Signs Temp Pulse Resp BP Pulse Ox O2 Del Method O2 Flow Rate 09/06/24 07:27 36.4 C L 89 21 177/99 H 94 Nasal Cannula 2 09/06/24 03:00 36.5 C 79 22 161/86 H 94 Nasal Cannula 2 09/05/24 23:00 36.5 C 90 22 170/76 H 97 Nasal Cannula 2 Laboratory Results Laboratory Results - last 24 hr 09/05/24 09/05/24 09/05/24 11:49 18:11 20:17 WBC RBC Hgb Hct MCV MCH MCHC RDW Std Deviation RDW Coeff of Tressa Plt Count MPV Immature Gran % (Auto) Neut % (Auto) Lymph % (Auto) [place] % (Auto) Eos % (Auto) Baso % (Auto) Neut # (Auto) Lymph # (Auto) [place] # (Auto) Eos # (Auto) Baso # (Auto) Immature Gran # (Auto) Sodium Potassium Chloride Carbon Dioxide Anion Gap BUN Creatinine Est Cr Clr Drug Dosing eGFR BUN/Creatinine Ratio Glucose POC Glucose 145 H 128 H 150 H Calcium Phosphorus Magnesium Albumin Triglycerides 09/06/24 09/06/24 09/06/24 00:00 05:50 07:43 WBC 11.37 H RBC 4.02 L Hgb 11.8 L Hct 35.1 L MCV 87.3 MCH 29.4 MCHC 33.6 RDW Std Deviation 41.8 RDW Coeff of Tressa 13.2 Plt Count 199 MPV 9.5 Immature Gran % (Auto) 4.7 Neut % (Auto) 61.2 Lymph % (Auto) 15.6 [place] % (Auto) 16.2 Eos % (Auto) 1.7 Baso % (Auto) 0.6 Neut # (Auto) 6.97 H Lymph # (Auto) 1.77 [place] # (Auto) 1.84 H Eos # (Auto) 0.19 Baso # (Auto) 0.07 Immature Gran # (Auto) 0.53 H Sodium 137 Potassium 4.3 Chloride 101 Carbon Dioxide 27 Anion Gap 9 BUN 66 H D Creatinine 5.84 H* D Est Cr Clr Drug Dosing 11.9 eGFR 7.62 BUN/Creatinine Ratio 11.3 Glucose 236 H POC Glucose 177 H 211 H Calcium 8.1 L Phosphorus 4.4 Magnesium 2.3 Albumin 2.7 L Triglycerides 237 H PG Care Time/CCT Total # of Minutes Spent Total Time Spent with Patient: Total time spent is greater than 50% in coordination of care (as documented) at patient's floor/unit and/or counseling patient: Coding Level of Care Code 21524 SUB INP/OBS CARE 3/50MIN Diagnoses LIDIA (acute kidney injury) N17.9 DKA (diabetic ketoacidosis) E11.10 Nutritional deficiency E63.9
--- NOTE | 2024-09-06 12:41 | Hospitalist Progress Note ---
Date of Service September 06, 2024 Assessment & Plan (1) Admitted to intensive care unit: (2) Shock: (3) DKA (diabetic ketoacidosis): (4) ARF (acute renal failure): (5) Encephalopathy: (6) Metabolic acidosis: Plan Patient is a 63 yo female with a PMH of PAD, rectal mass on CT awaiting colonoscopy, DM1, diabetic foot ulcer complicated by osteomyelitis, HLD, peripheral neuropathy, hypothyroidism, & lower extremity edema who presented to [facility] on 08/28/24 after being found unresponsive by her family. She was brought to the ED where glucose was 1262 and she was noted to be in DKA with a pH of 6.92. Procalcitonin was elevated on admission. She was intubated for airway protection and initiated on Bicarb and Levophed. Broad spectrum antibiotics were initiated as infectious process could not be ruled out at the time of admission. Now with worsening renal function and in need of HD Vocal cord malfunction/dysphonia likley from intubation patient unable to swallow and vocalize will need fiberoptic eval, possibly under anasthesia will consult ENT, await recs #Shock Resolved Hypoxic resp failure Resolved Now extubated Saturating well on room air completed a course of zosyn for suspected PNA. Now on Cefazolin. cultures negative so far #Acute renal failure - due to acute tubular necrosis - nephrology on board -Temprorary HD catheter inserted -Nephrology on board -Now got a tunneled catheter, for HD -appreciate nephrology #DKA with hyperglycemia - resolved - A1c: 8.7 - currently on lantus -a lot of improvement in blood glucose control -continue to monitor #Elevated troponin - suspect demand and poor clearance in the setting of ARF - EKG unremarkable - bedside ECHO with adequate contractility of RV and LV #Metabolic encephalopathy - CT head neg - likely due to shock and metabolic derangements -Resolved Patient now awake and alert and oriented Malnutrition Prolonged NPO status failed swallow eval a couple of times Nutritional services on board will continue PPN #Rectal mass - colonoscopy when pt is medically stable #PAD s/p right fem endarterectomy #Peripheral neuropathy #Hypothyroidism: on levothyroxine 100mcg at home #HLD: rosuvastatin 40mg at home #Chronic lower extremity edema: lasix 40mg daily at home Deconditioning PT/OT DVT ppx: hep subq , scds Transfererd out of ICU Admission and Anticipated Discharge Date Admission Date: August 28, 2024 Subjective patient seen and examined, still sounds very hoarse and bringing up a lot of secretions Review of Systems Review of Systems: All systems reviewed are negative, apart from the ones contained in the history. Physical Exam Physical Exam: The patient is awake, alert and oriented 3, well developed and well nourished, normocephalic and atraumatic, lying in bed and in no acute distress. HEENT--PERRL, EOMI, mucous membranes and oropharynx mildly dry Neck--supple. No JVD. No bruits. Thyroid normal, trachea midline, no adenopathy. Heart--normal S1 and S2. No murmurs, rubs or gallops. Lungs--clear bilaterally, no respiratory distress, no accessory muscle use. Abdomen--normal bowel sounds and soft. Extremities--no cyanosis or clubbing. No edema. Dermatologic--normal skin turgor, normal color, no abnormal lymph nodes, no rash. Neurologic--cranial nerves II through XII grossly intact. Rheumatologic--normal range of motion. Psychiatric--normal affect. Results & Data Results & Data Vital Signs (Past 12 Hours) Vital Signs Temp Pulse Resp BP Pulse Ox O2 Del Method O2 Flow Rate 09/06/24 10:59 97.7 F 87 20 172/91 H 98 Nasal Cannula 2 09/06/24 07:27 97.5 F L 89 21 177/99 H 94 Nasal Cannula 2 09/06/24 03:00 97.7 F 79 22 161/86 H 94 Nasal Cannula 2 PG Care Time/CCT Total # of Minutes Spent Total Time Spent with Patient: Total time spent is greater than 50% in coordination of care (as documented) at patient's floor/unit and/or counseling patient: Coding Level of Care Code 78609 SUB INP/OBS CARE 2/35MIN Diagnoses Admitted to intensive care unit Z78.9 Shock R57.9 DKA (diabetic ketoacidosis) E13.11 Diabetes mellitus complication detail: with coma Diabetes mellitus type: other specified (including SHILPA) ARF (acute renal failure) N17.9 Encephalopathy G93.40 Metabolic acidosis E87.20 Time Spent (min) 35 (3) DKA (diabetic ketoacidosis) Diabetes mellitus complication detail: with coma Diabetes mellitus type: other specified (including SHILPA) Qualified Code(s): E13.11 - Other specified diabetes mellitus with ketoacidosis with coma
[2024-09-06] MEDS: LANTUS PER UNIT CHARGE SC ONE (12:51)
[2024-09-06] MEDS: INSULIN ASPART PER UNIT CHARGE SC SCH (12:51)
[2024-09-06] MEDS: [UNRECOGNIZED DRUG - OTHER] IV SCH (16:29)
[2024-09-06] MEDS: PERIPHERAL TPN IV SCH (16:29)
[2024-09-06] MEDS: CLINOLIPID 20% IV FAT EMULSION 250 ML IV SCH (16:34)
[2024-09-07 06:31] LABS: BUN Creatinine Ratio 11.5 (10-20); Calcium 8.1 mg/dl (8.6-10.3); Creatinine Clr Calc Pharmacy 10.3 ml/min; Magnesium 2.3 mg/dl (1.7-2.4); Phosphorus 3.8 mg/dl (2.5-4.9); Potassium 3.9 mmol/L (3.5-5.1)
[2024-09-07] MEDS: ACETAMINOPHEN 1,000 MG/100 ML VIAL IV PRN ×2 (07:32→17:03)
--- NOTE | 2024-09-07 11:05 | Nephrology Progress Note ---
Date of Service September 07, 2024 Assessment & Plan (1) LIDIA (acute kidney injury): Plan: LIDIA attributed to ATN in setting of DKA, hypotension + volume depletion. Baseline creatinine <1 mg/dL. Renal ultrasound with mild right-sided hydronephrosis but otherwise unremarkable. Temporary dialysis catheter placed on 09/01/24 w/ HD on 09/01 and 09/02. HD was then held + catheter removed. Creatinine was rising off HD and TDC was placed 09/05/[address] Fitzgerald. HD was completed 09/05. Tania tolerated treatment well. Creatinine continues rising off HD. BP/volume status and electrolytes acceptable. Will plan next HD treatment for tomorrow AM. BP and volume status acceptable. Electrolytes normal. No plan for HD today. Will reevaluate tomorrow AM. Document I/O's. Repeat serum metabolic profile tomorrow AM. Medications are appropriately dosed for kidney function. (2) Nutritional deficiency: Plan: Remains on PPN. Admission and Anticipated Discharge Date Admission Date: August 28, 2024 Subjective No acute events overnight. No fevers or chills. Breathing comfortably. Tania reports feeling very tired. She continues to have notable secretions. She denies shortness of breath. Review of Systems Review of Systems: All systems reviewed & are unremarkable except as noted in HPI & below Physical Exam Constitutional: well developed; no acute distress Eyes: + anicteric sclerae ENMT: Mouth: oral mucous membranes not dry Neck: normal visual inspection and trachea midline Respiratory: normal respiratory effort Auscultation: lungs clear to auscultation bilaterally Cardiovascular: Rate/Rhythm: regular rate Heart Sounds: normal S1 and normal S2 Extremities: + edema (trace) Musculoskeletal: Extremities: no cyanosis and no clubbing Skin: normal turgor; no lesions Neurologic: Motor/Sensory: no tremor and no asterixis Psychiatric: Orientation: alert and oriented x 3 Results & Data Vital Signs (Past 12 Hours) Vital Signs Temp Pulse Resp BP Pulse Ox O2 Del Method O2 Flow Rate 09/07/24 07:21 36.5 C 83 19 159/83 H 96 Nasal Cannula 2 09/07/24 03:03 36.5 C 88 18 146/83 H 97 Nasal Cannula 09/06/24 23:16 36.5 C 89 18 148/84 H 98 Nasal Cannula 2 Laboratory Results Laboratory Results - last 24 hr 09/06/24 09/06/24 09/06/24 11:57 17:06 20:21 Sodium Potassium Chloride Carbon Dioxide Anion Gap BUN Creatinine Est Cr Clr Drug Dosing eGFR BUN/Creatinine Ratio Glucose POC Glucose 240 H 193 H 170 H Calcium Phosphorus Magnesium 09/07/24 09/07/24 09/07/24 00:24 04:37 05:26 Sodium 138 Potassium 3.9 Chloride 103 Carbon Dioxide 24 Anion Gap 11 BUN 78 H Creatinine 6.76 H* D Est Cr Clr Drug Dosing 10.3 eGFR 6.39 BUN/Creatinine Ratio 11.5 Glucose 150 H POC Glucose 165 H 135 H Calcium 8.1 L Phosphorus 3.8 Magnesium 2.3 09/07/24 07:20 Sodium Potassium Chloride Carbon Dioxide Anion Gap BUN Creatinine Est Cr Clr Drug Dosing eGFR BUN/Creatinine Ratio Glucose POC Glucose 141 H Calcium Phosphorus Magnesium PG Care Time/CCT Total # of Minutes Spent Total Time Spent with Patient: Total time spent is greater than 50% in coordination of care (as documented) at patient's floor/unit and/or counseling patient: Coding Level of Care Code 99581 SUB INP/OBS CARE 3/50MIN Diagnoses LIDIA (acute kidney injury) N17.9 Nutritional deficiency E63.9
--- NOTE | 2024-09-07 11:34 | Hospitalist Progress Note ---
Date of Service September 07, 2024 Assessment & Plan (1) Admitted to intensive care unit: (2) Shock: (3) DKA (diabetic ketoacidosis): (4) ARF (acute renal failure): (5) Encephalopathy: (6) Metabolic acidosis: Plan Patient is a 63 yo female with a PMH of PAD, rectal mass on CT awaiting colonoscopy, DM1, diabetic foot ulcer complicated by osteomyelitis, HLD, peripheral neuropathy, hypothyroidism, & lower extremity edema who presented to [facility] on 08/28/24 after being found unresponsive by her family. She was brought to the ED where glucose was 1262 and she was noted to be in DKA with a pH of 6.92. Procalcitonin was elevated on admission. She was intubated for airway protection and initiated on Bicarb and Levophed. Broad spectrum antibiotics were initiated as infectious process could not be ruled out at the time of admission. Now with worsening renal function and in need of HD Vocal cord malfunction/dysphonia likley from intubation patient unable to swallow and vocalize and clear her airwayss consequenlty, speech unable to carry out a proper barium swallow will need fiberoptic eval, possibly under anasthesia ENT has been consulted, await recs #Shock Resolved Hypoxic resp failure Resolved Now extubated Saturating well on room air completed a course of zosyn and cefazolin for suspected PNA. cultures negative so far #Acute renal failure - due to acute tubular necrosis - nephrology on board -Nephrology on board -Now got a tunneled catheter, for HD -appreciate nephrology #DKA with hyperglycemia - resolved - A1c: 8.7 - currently on lantus -a lot of improvement in blood glucose control -continue to monitor #Elevated troponin - suspect demand and poor clearance in the setting of ARF - EKG unremarkable - bedside ECHO with adequate contractility of RV and LV #Metabolic encephalopathy - CT head neg - likely due to shock and metabolic derangements -Resolved Patient now awake and alert and oriented Malnutrition Prolonged NPO status failed swallow eval a couple of times Nutritional services on board will continue PPN #Rectal mass - colonoscopy when pt is medically stable #PAD s/p right fem endarterectomy #Peripheral neuropathy #Hypothyroidism: on levothyroxine 100mcg at home #HLD: rosuvastatin 40mg at home #Chronic lower extremity edema: lasix 40mg daily at home Deconditioning PT/OT DVT ppx: hep subq , scds continue to monitor on the floor Admission and Anticipated Discharge Date Admission Date: August 28, 2024 Subjective patient seen and examined, still with a lot of secretions, voice still sounds hoarse Review of Systems Review of Systems: All systems reviewed are negative, apart from the ones contained in the history. Physical Exam Physical Exam: The patient is awake, alert and oriented 3, well developed and well nourished, normocephalic and atraumatic, lying in bed and in no acute distress. HEENT--PERRL, EOMI, mucous membranes and oropharynx mildly dry Neck--supple. No JVD. No bruits. Thyroid normal, trachea midline, no adenopathy. Heart--normal S1 and S2. No murmurs, rubs or gallops. Lungs--clear bilaterally, no respiratory distress, no accessory muscle use. Abdomen--normal bowel sounds and soft. Extremities--no cyanosis or clubbing. No edema. Dermatologic--normal skin turgor, normal color, no abnormal lymph nodes, no rash. Neurologic--cranial nerves II through XII grossly intact. Rheumatologic--normal range of motion. Psychiatric--normal affect. Results & Data Results & Data Vital Signs (Past 12 Hours) Vital Signs Temp Pulse Resp BP Pulse Ox O2 Del Method O2 Flow Rate 09/07/24 11:09 97.3 F L 78 19 159/76 H 96 Nasal Cannula 2 09/07/24 07:21 97.7 F 83 19 159/83 H 96 Nasal Cannula 2 09/07/24 03:03 97.7 F 88 18 146/83 H 97 Nasal Cannula PG Care Time/CCT Total # of Minutes Spent Total Time Spent with Patient: Total time spent is greater than 50% in coordination of care (as documented) at patient's floor/unit and/or counseling patient: Coding Level of Care Code 32864 SUB INP/OBS CARE 2/35MIN Diagnoses Admitted to intensive care unit Z78.9 Shock R57.9 DKA (diabetic ketoacidosis) E13.11 Diabetes mellitus complication detail: with coma Diabetes mellitus type: other specified (including SHILPA) ARF (acute renal failure) N17.9 Encephalopathy G93.40 Metabolic acidosis E87.20 Time Spent (min) 35 (3) DKA (diabetic ketoacidosis) Diabetes mellitus complication detail: with coma Diabetes mellitus type: other specified (including SHILPA) Qualified Code(s): E13.11 - Other specified diabetes mellitus with ketoacidosis with coma
--- NOTE | 2024-09-07 11:45 | XRay Report ---
XR chest 1V portable CLINICAL HISTORY: follow up TECHNIQUE: Single frontal radiograph of the chest was obtained. Comparison: Comparison is made to chest radiograph 09/01/2024 FINDINGS: Lines and tubes are stable. The cardiomediastinal silhouette is normal. Right mid and lower lung airs pace opacities are seen. No evidence of pleural effusion or pneumothorax. IMPRESSION: Right mid and lower lung airspace opacities are minimally more conspicuous than in the prior exam. Th is may represent atelectasis, pneumonia, and/or aspiration. ACT 112: Negative or not required by law. Electronically signed by: Иван Jeronimo M.D. 09/07/2024 11:44 AM
[2024-09-07] MEDS: PERIPHERAL TPN IV SCH (17:31)
[2024-09-07] MEDS: [UNRECOGNIZED DRUG - OTHER] IV SCH (17:31)
[2024-09-07] MEDS: CLINOLIPID 20% IV FAT EMULSION 250 ML IV SCH (17:32)
--- NOTE | 2024-09-07 20:11 | ENT Consultation ---
Date of Consultation September 05, 2024 Assessment & Plan (1) Dysphagia: (2) Difficulty swallowing liquids: History of Present Illness Reason for Consultation: Vocal cord malfunction/dysphonia likely from intubation Patient unable to swallow and vocalize and clear her airways often. Speech pathology unable to carry out a proper barium swallow due to strong gag reflex ENT has been consulted for possible fiberoptic evaluation , possibly under anaesthesia Attending Physician: Augusto Nowak MD History of Present Illness Vocal cord malfunction/dysphonia likely from intubation Patient unable to swallow and vocalize or clear her airways. Speech pathology unable to carry out a proper barium swallow due to strong gag reflex ENT has been consulted for possible fiberoptic evaluation , possibly under anaesthesia I evaluated Mrs. Sorenson on SundaySep 05 in her room and also discussed her case with the speech pathologist. I reviewed the chart and noted the need for at prolonged intubation and reintubation. Presently Tania is unable to swallow or take even small sips of water with out excessive coughing. Her gag reflex is very strong as I had difficulty even holding her tongue to do a bed side evaluation of the hard,soft and posterior pharyngeal wall. Speech pathology also had the same issues. I am concerned that doing a barium swallow or using sprays in her nose and airway may also cause the excessive coughing making the direct nasopharyngeal scope impossible at her bedside. Another option would be for sedation in the OR to do a direct laryngal scope . I am in the process of researching this further to come up with a safe and predicable plan for evaluation of the Vocal cord malfunction/dysphonia most likely from intubation. After discussion of this case with my colleagues we all agree that with her inability to tolerate clear liquids any attempt to use nasal spray and lubricants to localize the soft palate for a bedside nasopharyngeal scope is not advisable. Given the long intubation the Vocal cords are no doubt edematous. I know from my own evaluation that she can not tolerate clear liquids. Has she been tested for the ability to swallow pills or semi solid foods? The following suggestions in my opinion will be a much better alternative to consider. Can a Videofluoroscopic swallow study (barium study) be considered? Can Speech pathology consider--different food textures, jaw-chin position, swallowing exercise. Please let me know if I can be of any further help with Mrs. Sorenson. Allergies Allergy/AdvReac Type Severity Reaction Status Date / Time tetanus toxoid, adsorbed AdvReac Intermediate SWELLING Verified 08/15/24 13:04 AT SITE AND REDNESS Home Medications Medication Instructions Recorded Confirmed Type blood sugar diagnostic (OneTouch 09/04/22 08/28/24 History Ultra Test strips) blood-glucose meter (OneTouch 09/04/22 08/28/24 History Ultra2 Meter) blood-glucose meter,continuous #1 ea 02/26/23 08/28/24 Rx (Dexcom G7 [employer]) pen needle, diabetic 32 gauge x #100 ea 02/26/23 08/28/24 Rx 5/16" (Comfort EZ Pen [place]) ibuprofen 200 mg tablet (Advil) 600 mg (3 x 200 mg) PO QID PRN 08/30/23 08/28/24 Rx fever or pain #30 tabs insulin syringe-needle U-100 0.3 #300 ea 02/08/24 08/28/24 Rx mL 31 gauge x 5/16" (BD Insulin Syringe Ultra-Fine) blood-glucose sensor (Dexcom G7 #9 ea 02/14/24 08/28/24 Rx Sensor device) furosemide 40 mg tablet (Lasix) 40 mg PO QAM 06/03/24 08/28/24 History glucagon 3 mg/actuation nasal spray 3 mg intranasal ONCE PRN 06/03/24 08/28/24 History Hypoglycemia oxycodone-acetaminophen 5 mg-325 1 - 2 tab PO Q6H PRN pain #20 tabs 06/06/24 08/28/24 Rx mg tablet (Percocet) insulin glargine 100 unit/mL (3 15 unit (0.15 mL) subcut BID #30 mL 07/23/24 08/28/24 Rx mL) subcutaneous pen (Lantus Solostar U-100 Insulin) levothyroxine 100 mcg tablet 100 mcg PO QAM #90 tabs 07/23/24 08/28/24 Rx rosuvastatin 40 mg tablet 40 mg PO QAM 07/31/24 08/28/24 History insulin aspart U-100 100 unit/mL See Rx Instructions .Route .COMPLEX 08/28/24 08/28/24 History subcutaneous solution Patient History Medical History Post op infection is using a silver coated strip for surgical site infection from the femoral endarterectomy. following with Dr. Fitzgerald's office. Rectal mass found in CT end of June 2024 - reason for upcoming procedure Hx of hypotension (01/2024) Hx of fall (02/04/24) no major injuries Dental caries pt. reports decayed teeth, needs dentures, not loose Sleep-disordered breathing denies sleep study- sister told pt. 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 dickerson - states his PA did not hear a cardiac murmur (05/14/24) Sensory neuropathy feet 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) hx-right foot Lower extremity edema hx - swelling has been much better since starting lasix Shoulder pain left, r/t arthritis Peripheral arterial disease Hx of angiography 06/2023, [facility], bilateral and abdominal aortogram Hyperlipidemia Hypothyroidism Surgical History History of endarterectomy (05/2024) right femoral endarterectomy History of cholecystectomy (1988) during hyster History of appendectomy (1988) during hyster History of tooth extraction History of cataract surgery (02/2024) rt/left History of partial amputation of toe of right foot (07/2023) pt. reports clipping toe nails and accidentally removing entire toe nail, which lead to infection History of carpal tunnel release (08/2023) left Hx of colonoscopy History of tonsillectomy and adenoidectomy (1972) initial sx age 2, revision age 12 Hx of total hysterectomy with removal of both tubes and ovaries at age 28, also removed gallbladder and appendix at same time Family History Mother Myocardial infarction Other No family history of adverse response to anesthesia Denies family history of Ovarian cancer Prostate cancer Breast cancer Colorectal cancer Social History Smoking Status: Never smoker Second Hand Exposure: Yes; Do You Dip or Chew Tobacco: No; Hx Alcohol Use: Yes Alcohol type: beer Alcohol Intake Frequency: Monthly or Less Hx Substance Use: No Preferred Language: Kittitian Communication Ability: Impaired Visual Impairment: No Limitations Hearing Ability: Normal Medical Sales Consultant Required: No Beliefs That Will Affect Care: None marital status: Single Current Living Situation: Family Current Living Situation Comment: lives with sister's family current occupational status: retired Feels Safe at Home: Yes Childhood Exposure to Second-Hand Smoke: Yes Diet: low carbohydrate caffeine: Yes during the past year weight has: remained stable Dental Care, Regularly: No Physical Activity Frequency: 5-6 Times per Week Seatbelt Use: always Sunscreen Use: No Assistive Devices: None Results & Data Vital Signs (Past 12 Hours) Vital Signs Temp Pulse Pulse Pulse Resp BP Pulse Ox 09/07/24 19:31 36.4 C L 79 18 177/83 H 94 09/07/24 18:00 81 09/07/24 15:48 36.6 C 80 20 171/89 H 93 09/07/24 11:09 36.3 C L 78 19 159/76 H 96 O2 Del Method O2 Flow Rate 09/07/24 19:31 Room Air 09/07/24 18:00 09/07/24 15:48 Room Air 09/07/24 11:09 Nasal Cannula 2 PG Care Time/CCT Total # of Minutes Spent Total Time Spent with Patient: Total time spent is greater than 50% in coordination of care (as documented) at patient's floor/unit and/or counseling patient: Coding Level of Care Code 33785 IN/OBS CONSULT LVL 4,60M Diagnoses Oropharyngeal dysphagia R13.12 Dysphagia type: oropharyngeal phase Difficulty swallowing liquids R13.10 (1) Dysphagia Dysphagia type: oropharyngeal phase Qualified Code(s): R13.12 - Dysphagia, oropharyngeal phase
[2024-09-08 08:11] LABS: BUN Creatinine Ratio 11.7 (10-20); Calcium 8.1 mg/dl (8.6-10.3); Creatinine Clr Calc Pharmacy 8.9 ml/min; Magnesium 2.3 mg/dl (1.7-2.4); Phosphorus 4.3 mg/dl (2.5-4.9); Potassium 4.1 mmol/L (3.5-5.1)
--- NOTE | 2024-09-08 09:04 | Urology Consultation ---
Date of Consultation September 08, 2024 Assessment & Plan (1) Hematuria: (2) ARF (acute renal failure): 63 yo/F with past medical history of type 1 diabetes, peripheral artery disease, hypertension, hypothyroidism, and rectal mass on CT awaiting colonoscopy who presented to the emergency department via EMS on 08/28/2024 for unresponsiveness and hyperglycemia. She was admitted to the ICU for management of DKA, metabolic acidosis, shock, and acute renal failure. She was extubated on 09/03. Since admission, she had a temporary dialysis catheter placed for HD, then a tunneled catheter placed on 09/05. Urology consulted for hematuria Labs todaycreatinine 7.61, WBC 11.37, hemoglobin 11.8 Urine and blood cultures on arrival showed no growth CANDI 08/31 showed right hydronephrosis Recommend additional imaging with CTAP without contrast for further evaluation Stacy is patent and draining transparent light mensah red urine Okay to gently hand irrigate Stacy catheter as needed for catheter/clot obstruction No acute intervention at this time, pending CT Continue supportive care and medical management per primary team Patient will require outpatient cystoscopy for hematuria work-up will follow History of Present Illness Reason for Consultation: hematuria Requesting Physician: Dr. Nowak Attending Physician: Augusto Nowak MD History of Present Illness This is a 63-year-old female with past medical history of type 1 diabetes, peripheral artery disease, hypertension, hypothyroidism, and rectal mass on CT awaiting colonoscopy who presented to the emergency department via EMS on 08/28/2024 for unresponsiveness and hyperglycemia. On arrival, she was noted to be in DKA and hypotensive, intubated. She was admitted to the ICU for management of DKA, metabolic acidosis, shock, and acute renal failure. She was extubated on 09/03. Since admission, she had a temporary dialysis catheter placed for HD, then a tunneled catheter placed on 09/05. Urology is consulted for hematuria. Chart review: Labs today - creatinine 7.61, WBC 11.37, Hgb 11.8 UA on arrival (08/28/24) showed 1+ protein, 3+ glucose, 2+ ketones, 1+ blood, 0-5 WBC, 0-2 RBC, 3-5 epithelial cells, negative for for bacteria Urine culture 08/29/2024 showed no growth Blood cultures 08/28/2024 showed no growth after 5 days Renal ultrasound 08/31/2024 showed mild right hydronephrosis. No left hydronephrosis. Patient seen and examined at bedside this morning. She is sleeping. She arouses to her name and opens her eyes. She is not interactive and does not provide history. She answers "no" when asked if she has prior history of hematuria or stones. Denies pain at present. Stacy intact. Additional history/ROS is unobtainable. Allergies Allergy/AdvReac Type Severity Reaction Status Date / Time tetanus toxoid, adsorbed AdvReac Intermediate SWELLING Verified 08/15/24 13:04 AT SITE AND REDNESS Home Medications Medication Instructions Recorded Confirmed Type blood sugar diagnostic (OneTouch 09/04/22 08/28/24 History Ultra Test strips) blood-glucose meter ([facility] 09/04/22 08/28/24 History Ultra2 Meter) blood-glucose meter,continuous #1 ea 02/26/23 08/28/24 Rx (Dexcom G7 [employer]) pen needle, diabetic 32 gauge x #100 ea 02/26/23 08/28/24 Rx 5/16" (Comfort EZ Pen [place]) ibuprofen 200 mg tablet (Advil) 600 mg (3 x 200 mg) PO QID PRN 08/30/23 08/28/24 Rx fever or pain #30 tabs insulin syringe-needle U-100 0.3 #300 ea 02/08/24 08/28/24 Rx mL 31 gauge x 5/16" (BD Insulin Syringe Ultra-Fine) blood-glucose sensor (Dexcom G7 #9 ea 02/14/24 08/28/24 Rx Sensor device) furosemide 40 mg tablet (Lasix) 40 mg PO QAM 06/03/24 08/28/24 History glucagon 3 mg/actuation nasal spray 3 mg intranasal ONCE PRN 06/03/24 08/28/24 History Hypoglycemia oxycodone-acetaminophen 5 mg-325 1 - 2 tab PO Q6H PRN pain #20 tabs 06/06/24 08/28/24 Rx mg tablet (Percocet) insulin glargine 100 unit/mL (3 15 unit (0.15 mL) subcut BID #30 mL 07/23/24 08/28/24 Rx mL) subcutaneous pen (Lantus Solostar U-100 Insulin) levothyroxine 100 mcg tablet 100 mcg PO QAM #90 tabs 07/23/24 08/28/24 Rx rosuvastatin 40 mg tablet 40 mg PO QAM 07/31/24 08/28/24 History insulin aspart U-100 100 unit/mL See Rx Instructions .Route .COMPLEX 08/28/24 08/28/24 History subcutaneous solution Patient History Medical History Post op infection is using a silver coated strip for surgical site infection from the femoral endarterectomy. following with Dr. Fitzgerald's office. Rectal mass found in CT end of June 2024 - reason for upcoming procedure Hx of hypotension (01/2024) Hx of fall (02/04/24) no major injuries Dental caries pt. reports decayed teeth, needs dentures, not loose Sleep-disordered breathing denies sleep study- sister told pt. 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 dickerson - states his PA did not hear a cardiac murmur (05/14/24) Sensory neuropathy feet 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) hx-right foot Lower extremity edema hx - swelling has been much better since starting lasix Shoulder pain left, r/t arthritis Peripheral arterial disease Hx of angiography 06/2023, [facility], bilateral and abdominal aortogram Hyperlipidemia Hypothyroidism Surgical History History of endarterectomy (05/2024) right femoral endarterectomy History of cholecystectomy (1988) during hyster History of appendectomy (1988) during hyster History of tooth extraction History of cataract surgery (02/2024) rt/left History of partial amputation of toe of right foot (07/2023) pt. reports clipping toe nails and accidentally removing entire toe nail, which lead to infection History of carpal tunnel release (08/2023) left Hx of colonoscopy History of tonsillectomy and adenoidectomy (1972) initial sx age 2, revision age 12 Hx of total hysterectomy with removal of both tubes and ovaries at age 28, also removed gallbladder and appendix at same time Family History Mother Myocardial infarction Other No family history of adverse response to anesthesia Denies family history of Ovarian cancer Prostate cancer Breast cancer Colorectal cancer Social History Smoking Status: Never smoker Second Hand Exposure: Yes; Do You Dip or Chew Tobacco: No; Hx Alcohol Use: Yes Alcohol type: beer Alcohol Intake Frequency: Monthly or Less Hx Substance Use: No Preferred Language: Afghan Communication Ability: Impaired Visual Impairment: No Limitations Hearing Ability: Normal Hydraulic And Plumbing Installer Required: No Beliefs That Will Affect Care: None marital status: Single Current Living Situation: Family Current Living Situation Comment: lives with sister's family current occupational status: retired Feels Safe at Home: Yes Childhood Exposure to Second-Hand Smoke: Yes Diet: low carbohydrate caffeine: Yes during the past year weight has: remained stable Dental Care, Regularly: No Physical Activity Frequency: 5-6 Times per Week Seatbelt Use: always Sunscreen Use: No Assistive Devices: None Review of Systems Review of Systems: Unobtainable due to cognitive status Physical Exam Constitutional: + ill appearing and + obese; no acute di stress Respiratory: no respiratory distress and no labored breathing Cardiovascular: Rate/Rhythm: regular rate Gastrointestinal (Abdomen): Percussion/Palpation: abdomen soft; abdomen nontender Musculoskeletal: Head/Neck/Chest: normocephalic Neurologic: Somnolent, arouses to her name but not interactive Psychiatric: Orientation: oriented to person Genitourinary: Stacy patent and draining transparent, thin, light mensah red urine. Results & Data Vital Signs (Past 12 Hours) Vital Signs Temp Pulse Pulse Pulse Resp BP Pulse Ox 09/08/24 07:13 36.4 C L 80 18 175/89 H 92 09/08/24 03:10 36.6 C 88 18 180/89 H 92 09/07/24 22:27 36.5 C 83 18 176/92 H 90 09/07/24 22:10 09/07/24 22:00 82 O2 Del Method 09/08/24 07:13 Room Air 09/08/24 03:10 Room Air 09/07/24 22:27 Room Air 09/07/24 22:10 Room Air 09/07/24 22:00 PG Care Time/CCT Total # of Minutes Spent Total Time Spent with Patient: Total time spent is greater than 50% in coordination of care (as documented) at patient's floor/unit and/or counseling patient: Coding Level of Care Code 30906 IN/OBS CONSULT LVL 4,60M Diagnoses Hematuria R31.9 ARF (acute renal failure) N17.9
--- NOTE | 2024-09-08 10:48 | Nephrology Progress Note ---
Date of Service September 08, 2024 Assessment & Plan (1) LIDIA (acute kidney injury): Plan: LIDIA attributed to ATN in setting of DKA, hypotension + volume depletion. Baseline creatinine <1 mg/dL. Renal ultrasound with mild right-sided hydronephrosis but otherwise unremarkable. Temporary dialysis catheter placed on 09/01/24 w/ HD on 09/01 and 09/02. HD was then held + catheter removed. Creatinine was rising off HD and TDC was placed 09/05/[address] Fitzgerald. HD was completed 09/05. Tania tolerated treatment well. Creatinine continues rising off HD. Orders for HD today were entered into the EHR and reviewed with elevator operator service. Tania is tolerating HD well. BP and volume status acceptable. Electrolytes normal. No plan for HD today. Will reevaluate tomorrow AM. Document I/O's. Repeat serum metabolic profile tomorrow AM. Medications are appropriately dosed for kidney function. (2) Hematuria: Plan: Stacy draining mensah colored urine. Urology consultation pending. Admission and Anticipated Discharge Date Admission Date: August 28, 2024 Subjective No acute events overnight. No fevers or chills. Oral secretions persist. ENT consultation reviewed. Stacy draining mensah colored urine. Urology consultation pending. Tania otherwise feels well. She was seen and evaluated prior to and during HD this AM. Review of Systems Review of Systems: All systems reviewed & are unremarkable except as noted in HPI & below Physical Exam Constitutional: well developed; no acute distress Eyes: + anicteric sclerae ENMT: Mouth: + oral mucosal abnormality; oral mucous membranes not dry Neck: normal visual inspection and trachea midline Respiratory: normal respiratory effort Auscultation: lungs clear to auscultation bilaterally Cardiovascular: Rate/Rhythm: regular rate Heart Sounds: normal S1 and normal S2 Extremities: + edema (trace) Musculoskeletal: Extremities: no cyanosis and no clubbing Skin: normal turgor; no lesions Neurologic: Motor/Sensory: no tremor and no asterixis Psychiatric: Orientation: alert and oriented x 3 Results & Data Vital Signs (Past 12 Hours) Vital Signs Temp Pulse Pulse Pulse Resp BP Pulse Ox 09/08/24 10:32 81 09/08/24 08:00 09/08/24 07:13 36.4 C L 80 18 175/89 H 92 09/08/24 03:10 36.6 C 88 18 180/89 H 92 O2 Del Method 09/08/24 10:32 09/08/24 08:00 Room Air 09/08/24 07:13 Room Air 09/08/24 03:10 Room Air Laboratory Results Laboratory Results - last 24 hr 09/07/24 09/07/24 09/07/24 11:12 15:51 19:54 Sodium Potassium Chloride Carbon Dioxide Anion Gap BUN Creatinine Est Cr Clr Drug Dosing eGFR BUN/Creatinine Ratio Glucose POC Glucose 170 H 162 H 159 H Calcium Phosphorus Magnesium Triglycerides 09/08/24 09/08/24 09/08/24 00:16 04:36 06:47 Sodium 138 Potassium 4.1 Chloride 102 Carbon Dioxide 25 Anion Gap 11 BUN 89 H Creatinine 7.61 H* D Est Cr Clr Drug Dosing 8.9 eGFR 5.54 BUN/Creatinine Ratio 11.7 Glucose 181 H POC Glucose 176 H 179 H Calcium 8.1 L Phosphorus 4.3 Magnesium 2.3 Triglycerides 202 H 09/08/24 07:16 Sodium Potassium Chloride Carbon Dioxide Anion Gap BUN Creatinine Est Cr Clr Drug Dosing eGFR BUN/Creatinine Ratio Glucose POC Glucose 181 H Calcium Phosphorus Magnesium Triglycerides PG Care Time/CCT Total # of Minutes Spent Total Time Spent with Patient: Total time spent is greater than 50% in coordination of care (as documented) at patient's floor/unit and/or counseling patient: Coding Level of Care Code 82343 SUB INP/OBS CARE 3/50MIN Diagnoses LIDIA (acute kidney injury) N17.9 Hematuria R31.9
--- NOTE | 2024-09-08 11:37 | Hospitalist Progress Note ---
Date of Service September 08, 2024 Assessment & Plan (1) Admitted to intensive care unit: (2) Shock: (3) DKA (diabetic ketoacidosis): (4) ARF (acute renal failure): (5) Encephalopathy: (6) Metabolic acidosis: Plan Patient is a 63 yo female with a PMH of PAD, rectal mass on CT awaiting colonoscopy, DM1, diabetic foot ulcer complicated by osteomyelitis, HLD, peripheral neuropathy, hypothyroidism, & lower extremity edema who presented to [facility] on 08/28/24 after being found unresponsive by her family. She was brought to the ED where glucose was 1262 and she was noted to be in DKA with a pH of 6.92. Procalcitonin was elevated on admission. She was intubated for airway protection and initiated on Bicarb and Levophed. Broad spectrum antibiotics were initiated as infectious process could not be ruled out at the time of admission. Now with worsening renal function and in need of HD Vocal cord malfunction/dysphonia likley from intubation patient unable to swallow and vocalize and clear her airwayss consequenlty, speech unable to carry out a proper barium swallow will need fiberoptic eval, possibly under anasthesia ENT has been consulted, await recs #Shock Resolved Hypoxic resp failure Resolved Now extubated Saturating well on room air completed a course of zosyn and cefazolin for suspected PNA. cultures negative so far #Acute renal failure - due to acute tubular necrosis - nephrology on board -Nephrology on board -Now got a tunneled catheter, for HD Will get HD today -appreciate nephrology #DKA with hyperglycemia - resolved - A1c: 8.7 - currently on lantus -a lot of improvement in blood glucose control -continue to monitor #Elevated troponin - suspect demand and poor clearance in the setting of ARF - EKG unremarkable - bedside ECHO with adequate contractility of RV and LV #Metabolic encephalopathy - CT head neg - likely due to shock and metabolic derangements -Resolved Patient now awake and alert and oriented Malnutrition Prolonged NPO status failed swallow eval a couple of times Nutritional services on board will continue PPN Hematuria Stacy draining pink urine Hb stable urology on board Deconditioning PT/OT on board #Rectal mass - colonoscopy when pt is medically stable #PAD s/p right fem endarterectomy #Peripheral neuropathy #Hypothyroidism: on levothyroxine 100mcg at home #HLD: rosuvastatin 40mg at home #Chronic lower extremity edema: lasix 40mg daily at home Deconditioning PT/OT DVT ppx: hep subq , scds continue to monitor on the floor Admission and Anticipated Discharge Date Admission Date: August 28, 2024 Subjective patient seen and examined, she is getting more lethargic Review of Systems Review of Systems: All systems reviewed are negative, apart from the ones contained in the history. Physical Exam Physical Exam: The patient is awake, alert and oriented 3, well developed and well nourished, normocephalic and atraumatic, lying in bed and in no acute distress. HEENT--PERRL, EOMI, mucous membranes and oropharynx mildly dry Neck--supple. No JVD. No bruits. Thyroid normal, trachea midline, no adenopathy. Heart--normal S1 and S2. No murmurs, rubs or gallops. Lungs--clear bilaterally, no respiratory distress, no accessory muscle use. Abdomen--normal bowel sounds and soft. Extremities--no cyanosis or clubbing. No edema. Dermatologic--normal skin turgor, normal color, no abnormal lymph nodes, no rash. Neurologic--cranial nerves II through XII grossly intact. Rheumatologic--normal range of motion. Psychiatric--normal affect. Results & Data Results & Data Vital Signs (Past 12 Hours) Vital Signs Temp Pulse Pulse Pulse Resp BP BP 09/08/24 10:32 81 09/08/24 10:30 77 131/87 09/08/24 10:00 91 H 136/83 09/08/24 09:36 82 170/94 H 09/08/24 09:29 97.7 F 82 09/08/24 08:00 09/08/24 07:13 97.5 F L 80 18 175/89 H 09/08/24 03:10 97.9 F 88 18 180/89 H Pulse Ox O2 Del Method 09/08/24 10:32 09/08/24 10:30 09/08/24 10:00 09/08/24 09:36 09/08/24 09:29 09/08/24 08:00 Room Air 09/08/24 07:13 92 Room Air 09/08/24 03:10 92 Room Air PG Care Time/CCT Total # of Minutes Spent Total Time Spent with Patient: Total time spent is greater than 50% in coordination of care (as documented) at patient's floor/unit and/or counseling patient: Coding Level of Care Code 46434 SUB INP/OBS CARE 2/35MIN Diagnoses Admitted to intensive care unit Z78.9 Shock R57.9 DKA (diabetic ketoacidosis) E13.11 Diabetes mellitus complication detail: with coma Diabetes mellitus type: other specified (including SHILPA) ARF (acute renal failure) N17.9 Encephalopathy G93.40 Metabolic acidosis E87.20 Time Spent (min) 35 (3) DKA (diabetic ketoacidosis) Diabetes mellitus complication detail: with coma Diabetes mellitus type: other specified (including SHILPA) Qualified Code(s): E13.11 - Other specified diabetes mellitus with ketoacidosis with coma
[2024-09-08] MEDS: PERIPHERAL TPN IV SCH (18:10)
[2024-09-08] MEDS: [UNRECOGNIZED DRUG - OTHER] IV SCH (18:10)
[2024-09-08] MEDS: CLINOLIPID 20% IV FAT EMULSION 250 ML IV SCH (18:11)
[2024-09-08] MEDS: STOP CLINOLIPID ONE (23:58)
[2024-09-09 08:21] LABS: Hematocrit (blood only) 30.4 % (37.0-47.0); Hemoglobin 10.4 g/dl (12.0-16.0); Mean Corpuscular Hemoglobin 29.3 pg (25.0-34.0); Mean Corpuscular Hgb Conc 34.2 g/dL (32.0-36.0); Mean Corpuscular Volume 85.6 fL (80.0-100.0); Mean Platelet Volume 9.7 fL (9.4-12.4); Platelet Count 189 K/uL (130-400); RDW Coefficient of Variation 12.9 % (11.5-14.5); RDW Standard Deviation 39.8 fL (36.4-46.3); Red Blood Count 3.55 M/uL (4.20-5.40); White Blood Count 12.63 K/ul (4.8-10.8)
[2024-09-09 08:34] LABS: BUN Creatinine Ratio 9.7 (10-20); Calcium 8.2 mg/dl (8.6-10.3); Creatinine Clr Calc Pharmacy 11.8 ml/min; Phosphorus 3.8 mg/dl (2.5-4.9)
[2024-09-09] MEDS: bisacodyL 10 MG SUPP PR STA (08:45)
[2024-09-09] MEDS: LANTUS PER UNIT CHARGE SC SCH ×2 (09:34→22:00)
--- NOTE | 2024-09-09 09:39 | Urology Progress Note ---
Date of Service September 09, 2024 Assessment & Plan (1) Hematuria: Plan: 63 yo/F who presented to the emergency department via EMS on 08/28/2024 for unresponsiveness and hyperglycemia. She was admitted to the ICU for management of DKA, metabolic acidosis, shock, and acute renal failure. Patient has been undergoing hemodialysis. Urology consulted for hematuria. Follow-up of hematuria Labs today reviewedcreatinine 5.67 (HD yesterday), WBC 12.63, hemoglobin 10.4 Urine and blood cultures on arrival showed no growth CANDI 08/31 showed mild right hydronephrosis Denies flank or abdominal pain Stacy is patent and draining pink urine Continue conservative management and monitoring Okay to gently hand irrigate Stacy catheter as needed for catheter/clot obstruction No acute intervention at this time Will arrange follow-up with our service to pursue hematuria as an outpatient including imaging and cystoscopy Continue supportive care and medical management per primary team will follow peripherally Admission and Anticipated Discharge Date Admission Date: August 28, 2024 Subjective Patient seen and examined at bedside this morning. She is resting in bed, arouses to her name. More alert and interactive today. Denies flank or abdominal pain. Denies fever, chills, nausea or vomiting. Stacy intact. Review of Systems Constitutional: as per Subjective / HPI Gastrointestinal: as per Subjective / HPI Physical Exam Constitutional: + obese; no acute distress Respiratory: no respiratory distress and no labored breathing Cardiovascular: Rate/Rhythm: regular rate Musculoskeletal: Head/Neck/Chest: normocephalic Neurologic: awake Psychiatric: Orientation: oriented to person Genitourinary: Stacy patent and draining medium pink urine Results & Data Vital Signs (Past 12 Hours) Vital Signs Temp Pulse Pulse Pulse Resp BP BP 09/09/24 07:39 36.5 C 86 18 166/78 H 09/09/24 07:09 83 09/09/24 03:57 36.7 C 84 19 157/82 H 09/08/24 23:24 36.8 C 88 18 164/84 H 09/08/24 22:23 36.6 C 78 18 153/86 H 09/08/24 21:42 84 Pulse Ox O2 Del Method O2 Flow Rate 09/09/24 07:39 95 Nasal Cannula 2 09/09/24 07:09 09/09/24 03:57 97 Nasal Cannula 2 09/08/24 23:24 96 Nasal Cannula 2 09/08/24 22:23 94 Nasal Cannula 2 09/08/24 21:42 PG Care Time/CCT Total # of Minutes Spent Total Time Spent with Patient: Total time spent is greater than 50% in coordination of care (as documented) at patient's floor/unit and/or counseling patient: Coding Level of Care Code 66007 SUB INP/OBS CARE 09/20MIN Diagnoses Hematuria R31.9
--- NOTE | 2024-09-09 10:56 | Pharmacy Report ---
Pharmacy PN Follow-up Note - Date of Service September 09, 2024 - Subjective Patient is currently on day #5 of PPN for prolonged NPO status. - Objective Height & Weight (Last Documented) Height 5 ft 7 in Weight 91.2 kg Diet Order(s) 09/05/24 00:01 NPO Intake & Ouput (24hrs) 09/08/24 09/09/24 09/10/24 06:59 06:59 06:59 Intake Total 1827 / 1827 1520.4 / 1520.4 Output Total 725 / 725 675 / 675 Balance 1102 / 1102 845.4 / 845.4 Selected Laboratory Results 09/09/24 07:47 Sodium 138 Potassium 4.0 Chloride 105 Carbon Dioxide 25 Anion Gap 8 BUN 55 H D Creatinine 5.67 H* D BUN/Creatinine Ratio 9.7 L Glucose 160 H Calcium 8.2 L Phosphorus 3.8 Magnesium 2.0 - Assessment & Plan Assessment: * Day #5 of PPN. Unsure if ENT will be doing fiberoptic procedure in OR under anaesthesia or not. * Electrolytes have been fine. PPN is limited by both fluid restriction of 1500 mL/day (per provider) as well as osmolarity constraints. We are not close to meeting goal macronutrients with PPN. * Labs are ordered for next several days. Triglycerides mildly elevated at 237 mg/dL initially, improved to 202 mg/dL yesterday. Will one more level tomorrow to ensure trigs continue to trend down given degree of renal impairment. * No plans for HD today. Significant risk for volume overload given degree of renal impairment. Started on Zosyn today. * Will recommend that attending make plans to gain central access for TPN or consider a feeding tube for enteral nutrition as it appears patient will be NPO for several more days. ASPEN recommends a soft max of 7 days PPN with a hard max of 10-14 days total. Would prefer to get patient transitioned to TPN prior to the weekend to optimize nutritional intake. Plan: * For Day #5 of PPN administration, the following will be ordered: * Macronutrients: * Amino Acids: 51 grams/day * Dextrose: 60 grams/day * Lipids: 50 grams/day * Micronutrients: * Sodium chloride: 50 mEq/day * Sodium acetate: 50 mEq/day * Potassium chloride: 20 mEq/day * Magnesium sulfate: 4.06 mEq/day * Calcium gluconate: 4.65 mEq/day * Multivitamins: 10 mL/day * Trace elements: 1 mL/day * Thiamine: 100 mg/day * Folic Acid: 1 mg/day * Total volume of 1278.2 mL will be infused over 24 hours and will provide 908 kcal/day * Patient is on PPN which has a maximum mOsm/L of 900. Final osmolarity of current solution is 833 mOsm/L. * Labs will be ordered per PN protocol. * Pharmacy will follow and adjust PN orders on a daily basis. Thank you!
--- NOTE | 2024-09-09 11:03 | Nephrology Progress Note ---
Date of Service September 09, 2024 Assessment & Plan (1) LIDIA (acute kidney injury): Plan: LIDIA attributed to ATN in setting of DKA, hypotension + volume depletion. Baseline creatinine <1 mg/dL. Renal ultrasound with mild right-sided hydronephrosis but otherwise unremarkable. Temporary dialysis catheter placed on 09/01/24 w/ HD on 09/01 and 09/02. HD was then held + catheter removed. Creatinine was rising off HD and TDC was placed 09/05/[address] Fitzgerald. HD was completed 09/05. She completed a treatment yesterday with adequate UF and clearance. Tania tolerated treatment well. Creatinine continues rising off HD. Next HD planned for tomorrow. BP and volume status acceptable. Electrolytes normal. No plan for HD today. Will reevaluate tomorrow AM. Document I/O's. Repeat serum metabolic profile tomorrow AM. Medications are appropriately dosed for kidney function. (2) Hematuria: Plan: Stacy draining mensah colored urine. Urology consultation and CT reviewed. No clots. (3) Difficulty swallowing liquids: Plan: Remains NPO on PPN. ENT consultation. Admission and Anticipated Discharge Date Admission Date: August 28, 2024 Subjective No acute events overnight. Tania feels reasonably well this AM. Still NPO due to aspiration. Parental nutrition infusing. No fevers or chills. No fluid retention or edema. Stacy draining mensah colored urine. Tolerated HD well yesterday. No complications with treatment. Review of Systems Review of Systems: All systems reviewed & are unremarkable except as noted in HPI & below Physical Exam Constitutional: well developed; no acute distress Eyes: + anicteric sclerae ENMT: Mouth: + oral mucosal abnormality; oral mucous membranes not dry Neck: normal visual inspection and trachea midline Respiratory: normal respiratory effort Auscultation: lungs clear to auscultation bilaterally Cardiovascular: Rate/Rhythm: regular rate Heart Sounds: normal S1 and normal S2 Extremities: no edema Musculoskeletal: Extremities: no cyanosis and no clubbing Skin: normal turgor; no lesions Neurologic: Motor/Sensory: no tremor and no asterixis Psychiatric: Orientation: alert and oriented x 3 Results & Data Vital Signs (Past 12 Hours) Vital Signs Temp Pulse Pulse Pulse Resp BP Pulse Ox 09/09/24 09:36 09/09/24 07:39 36.5 C 86 18 166/78 H 95 09/09/24 07:09 83 09/09/24 03:57 36.7 C 84 19 157/82 H 97 09/08/24 23:24 36.8 C 88 18 164/84 H 96 O2 Del Method O2 Flow Rate 09/09/24 09:36 Room Air 09/09/24 07:39 Nasal Cannula 2 09/09/24 07:09 09/09/24 03:57 Nasal Cannula 2 09/08/24 23:24 Nasal Cannula 2 Laboratory Results Laboratory Results - last 24 hr 09/08/24 09/08/24 09/08/24 13:46 16:30 19:56 WBC RBC Hgb Hct MCV MCH MCHC RDW Std Deviation RDW Coeff of Tressa Plt Count MPV Sodium Potassium Chloride Carbon Dioxide Anion Gap BUN Creatinine Est Cr Clr Drug Dosing eGFR BUN/Creatinine Ratio Glucose POC Glucose 159 H 137 H 148 H Calcium Phosphorus Magnesium 09/09/24 09/09/24 09/09/24 00:34 03:57 07:43 WBC RBC Hgb Hct MCV MCH MCHC RDW Std Deviation RDW Coeff of Tressa Plt Count MPV Sodium Potassium Chloride Carbon Dioxide Anion Gap BUN Creatinine Est Cr Clr Drug Dosing eGFR BUN/Creatinine Ratio Glucose POC Glucose 198 H 161 H 158 H Calcium Phosphorus Magnesium 09/09/24 07:47 WBC 12.63 H RBC 3.55 L Hgb 10.4 L Hct 30.4 L MCV 85.6 MCH 29.3 MCHC 34.2 RDW Std Deviation 39.8 RDW Coeff of Tressa 12.9 Plt Count 189 MPV 9.7 Sodium 138 Potassium 4.0 Chloride 105 Carbon Dioxide 25 Anion Gap 8 BUN 55 H D Creatinine 5.67 H* D Est Cr Clr Drug Dosing 11.8 eGFR 7.89 BUN/Creatinine Ratio 9.7 L Glucose 160 H POC Glucose Calcium 8.2 L Phosphorus 3.8 Magnesium 2.0 PG Care Time/CCT Total # of Minutes Spent Total Time Spent with Patient: Total time spent is greater than 50% in coordination of care (as documented) at patient's floor/unit and/or counseling patient: Coding Level of Care Code 08670 SUB INP/OBS CARE 3/50MIN Diagnoses LIDIA (acute kidney injury) N17.9 Hematuria R31.9 Difficulty swallowing liquids R13.10
[2024-09-09] MEDS ORDERED: methylPREDNISolone 125 MG/2 ML VIAL IV SCH (11:15)
--- NOTE | 2024-09-09 11:26 | Hospitalist Progress Note ---
Date of Service September 09, 2024 Assessment & Plan (1) Admitted to intensive care unit: (2) Shock: (3) DKA (diabetic ketoacidosis): (4) ARF (acute renal failure): (5) Encephalopathy: (6) Metabolic acidosis: Plan Patient is a 63 yo female with a PMH of PAD, rectal mass on CT awaiting colonoscopy, DM1, diabetic foot ulcer complicated by osteomyelitis, HLD, peripheral neuropathy, hypothyroidism, & lower extremity edema who presented to [facility] on 08/28/24 after being found unresponsive by her family. She was brought to the ED where glucose was 1262 and she was noted to be in DKA with a pH of 6.92. Procalcitonin was elevated on admission. She was intubated for airway protection and initiated on Bicarb and Levophed. Broad spectrum antibiotics were initiated as infectious process could not be ruled out at the time of admission. Now with worsening renal function and in need of HD Vocal cord malfunction/dysphonia likley from intubation patient unable to swallow and vocalize and clear her airwayss consequenlty, speech unable to carry out a proper barium swallow will need fiberoptic eval, possibly under anasthesia ENT has been consulted, they suggest, steroid to help with inflammation I will also try racemic epinephrin to help with laryngeal edema and stridor #Shock Resolved Hypoxic resp failure Resolved Now extubated Saturating well on room air completed a course of cefazolin for suspected PNA. cultures negative so far However, x ray suggests some infiltrates, will start zosyn for suspected aspiration pna #Acute renal failure - due to acute tubular necrosis - nephrology on board -Nephrology on board -Now got a tunneled catheter, for HD has been having HD intermittently Renal function yet to recover -appreciate nephrology #DKA with hyperglycemia - resolved - A1c: 8.7 - currently on lantus -a lot of improvement in blood glucose control -continue to monitor #Elevated troponin - suspect demand and poor clearance in the setting of ARF - EKG unremarkable - bedside ECHO with adequate contractility of RV and LV #Metabolic encephalopathy - CT head neg - likely due to shock and metabolic derangements -Resolved Patient now awake and alert and oriented Malnutrition Prolonged NPO status failed swallow eval a couple of times Nutritional services on board will continue PPN Plans for PICC line, so she can get TPN Hematuria Stacy draining pink urine Hb stable urology on board Deconditioning PT/OT on board #Rectal mass - colonoscopy when pt is medically stable #PAD s/p right fem endarterectomy #Peripheral neuropathy #Hypothyroidism: on levothyroxine 100mcg at home #HLD: rosuvastatin 40mg at home #Chronic lower extremity edema: lasix 40mg daily at home Deconditioning PT/OT DVT ppx: hep subq , scds continue to monitor on the floor Admission and Anticipated Discharge Date Admission Date: August 28, 2024 Subjective patient seen and examined today, participating in PT, still weak Review of Systems Review of Systems: All systems reviewed are negative, apart from the ones contained in the history. Physical Exam Physical Exam: The patient is awake, alert and oriented 3, well developed and well nourished, normocephalic and atraumatic, lying in bed and in no acute distress. HEENT--PERRL, EOMI, mucous membranes and oropharynx mildly dry Neck--supple. No JVD. No bruits. Thyroid normal, trachea midline, no adenopathy. Heart--normal S1 and S2. No murmurs, rubs or gallops. Lungs--clear bilaterally, no respiratory distress, no accessory muscle use. Abdomen--normal bowel sounds and soft. Extremities--no cyanosis or clubbing. No edema. Dermatologic--normal skin turgor, normal color, no abnormal lymph nodes, no rash. Neurologic--cranial nerves II through XII grossly intact. Rheumatologic--normal range of motion. Psychiatric--normal affect. Results & Data Results & Data Vital Signs (Past 12 Hours) Vital Signs Temp Pulse Pulse Pulse Resp BP Pulse Ox 09/09/24 09:36 09/09/24 07:39 97.7 F 86 18 166/78 H 95 09/09/24 07:09 83 09/09/24 03:57 98.1 F 84 19 157/82 H 97 09/08/24 23:24 98.2 F 88 18 164/84 H 96 O2 Del Method O2 Flow Rate 09/09/24 09:36 Room Air 09/09/24 07:39 Nasal Cannula 2 09/09/24 07:09 09/09/24 03:57 Nasal Cannula 2 09/08/24 23:24 Nasal Cannula 2 PG Care Time/CCT Total # of Minutes Spent Total Time Spent with Patient: Total time spent is greater than 50% in coordination of care (as documented) at patient's floor/unit and/or counseling patient: Coding Level of Care Code 82690 SUB INP/OBS CARE 2/35MIN Diagnoses Admitted to intensive care unit Z78.9 Shock R57.9 DKA (diabetic ketoacidosis) E13.11 Diabetes mellitus complication detail: with coma Diabetes mellitus type: other specified (including SHILPA) ARF (acute renal failure) N17.9 Encephalopathy G93.40 Metabolic acidosis E87.20 Time Spent (min) 35 (3) DKA (diabetic ketoacidosis) Diabetes mellitus complication detail: with coma Diabetes mellitus type: other specified (including SHILPA) Qualified Code(s): E13.11 - Other specified diabetes mellitus with ketoacidosis with coma
[2024-09-09] MEDS ORDERED: LANTUS PER UNIT CHARGE SC ONE (11:30)
[2024-09-09] MEDS: RACEPINEPHRINE 2.25% NEBU SOLN 0.5 ML VIAL NEB SCH (11:42)
--- NOTE | 2024-09-09 14:34 | Pharmacy Report ---
Pharmacy Glycemic Short Note 2 - Date of Service September 09, 2024 - Glycemic Short BSG Results (Last 24 hours): 09/08/24 09/08/24 09/09/24 16:30 19:56 00:34 Glucose POC Glucose 137 H 148 H 198 H 09/09/24 09/09/24 09/09/24 03:57 07:43 07:47 Glucose 160 H POC Glucose 161 H 158 H 09/09/24 11:45 Glucose POC Glucose 158 H OUTPATIENT ANTIDIABETIC REGIMEN: * Lantus 15 units SC BID * Novolog 8 units SC AC * A1c = 8.7% (08/28/24) ASSESSMENT: 09/09: * Tania received 25 units of insulin yeserday, 17 of which were basal. BSGs were: [phone] mg/dL. This has been about average for the patient since starting on PPN. Did receive HD yesterday. * Fasting BSG improved to 158 mg/dL this AM. No plans for HD today. Remains on 24 hour PPN that contains 60 total g of Dextrose. * Patient also started on Zosyn for pulmonary source today as well as SoluMedrol 40 mg IV every 8 hours. Suspect this will increase her BSGs throughout the evening. * Received previous basal dose of 7 units this AM. Will add 8 units x 1 at lunch given addition of steroids. This matches the patients home dose of 15 units in the AM. Will start a scaled basal dose this evening to provide a max of 15 uni ts BID which is what the patient takes at home. Tightened CF this AM as well. Added a carb ratio of 5 when steroids were started. Instructed RN that PPN will provide 10 g of carbs/dextrose every 4 hours so patient should receive at minimum, 2 units of bolus insulin every 4 hours (does not include correctional dose for BSGs above goal). 09/05: * Pts BSGs have been mostly in goal since yesterday; 111 this morning and 145 at lunch * Pt continues to be in NPO status and was not given her Lantus dose this morning possibly because of going to the OR for cath placement * Pt also starting PPN today d/t NPO status/inability for using tube feeds. * Will keep NovoLog parameters unchanged and continue same Lantus dosing in addition to one time 5 unit dose at lunch to make up for the one she missed this morning. 09/03: * Type 1 diabetic admitted for severe DKA due to ~3 day h/o NV and abdominal pain with omission of insulin, hypotension requiring pressors, severe LIDIA and resp failure requiring intubation. * Severe LIDIA persists, now receiving DEVELOPMENT TEAM LEAD in the form of intermittent HD (performed 09/01 and 09/02) * Patient was extubated this AM, tube feeds have been discontinued. * Patient will be at risk for hypoglycemia in setting of no IV or enteral carb provision. May need to consider addition of IV dextrose provision to permit ongoing basal insulin administration to type 1 diabetic. Will scale back basal insulin doses, continue to admin BID to allow for greater flexibility to hold a dose if needed. PLAN FOR INPATIENT GLYCEMIC CONTROL: * Basal insulin * Lantus 7 units SC x 1 this AM + 8 units SC x 1 at lunchtime * Lantus 10-15 units SC BID starting this evening (see eMAR for more details) * Bolus insulin * NovoLog per scale Q4hrs * Goal Range: Low 110 mg/dL - High 150 mg/dL * Correction Factor: 15 mg/dL/unit * Nutritional / Prandial insulin per carb ratio of 1 unit per 5 grams CHO consumed
[2024-09-09] MEDS: PIPERACILLIN/TAZOBACTAM 4.5 GM/100 ML BAG IV STA (16:15)
[2024-09-09] MEDS: methylPREDNISolone 40 MG in SYRINGE 0 ML IV SCH (16:16)
[2024-09-09] MEDS: LANTUS PER UNIT CHARGE SC ONE (16:16)
[2024-09-09] MEDS: PIPERACILLIN/TAZOBACTAM 4.5 GM/100 ML BAG IV SCH (18:44)
[2024-09-09] MEDS ORDERED: LANTUS PER UNIT CHARGE SQ SCH (21:00)
[2024-09-09] MEDS ORDERED: LANTUS PER UNIT CHARGE SC SCH (21:00)
[2024-09-09] MEDS: [UNRECOGNIZED DRUG - OTHER] IV SCH (21:44)
[2024-09-09] MEDS: PERIPHERAL TPN IV SCH (21:44)
[2024-09-09] MEDS: CLINOLIPID 20% IV FAT EMULSION 250 ML IV SCH (21:47)
[2024-09-10] MEDS: STOP CLINOLIPID SCH (04:00)
[2024-09-10 09:23] LABS: Calcium 8.6 mg/dl (8.6-10.3); Creatinine Clr Calc Pharmacy 10.6 ml/min; Magnesium 2.1 mg/dl (1.7-2.4); Phosphorus 4.3 mg/dl (2.5-4.9); Potassium 4.4 mmol/L (3.5-5.1)
--- NOTE | 2024-09-10 10:27 | Nephrology Progress Note ---
Date of Service September 10, 2024 Assessment & Plan (1) LIDIA (acute kidney injury): Plan: LIDIA attributed to ATN in setting of DKA, hypotension + volume depletion. Baseline creatinine <1 mg/dL. Renal ultrasound with mild right-sided hydronephrosis but otherwise unremarkable. Temporary dialysis catheter placed on 09/01/24 w/ HD on 09/01 and 09/02. HD was then held + catheter removed. Creatinine was rising off HD and TDC was placed 09/05/[address] Fitzgerald. Tania has remains dialysis dependent. Orders for HD today were entered into the EHR and reviewed with the tomb maker helper. Tania is tolerating treatment well. Document I/O's. Repeat serum metabolic profile tomorrow AM. Medications are appropriately dosed for kidney function. (2) Hematuria: Plan: Stacy continues draining mensah colored urine. Urology following. Outpatient evaluation planned. (3) Difficulty swallowing liquids: Plan: Remains NPO on PPN. Admission and Anticipated Discharge Date Admission Date: August 28, 2024 Subjective No acute events overnight. Tania was seen and evaluated during hemodialysis this AM. She is tolerating treatment well. She remains NPO due to aspiration. She is breathing comfortable. She reports some mild heel discomfort. Otherwise, no complaints. Review of Systems Review of Systems: All systems reviewed & are unremarkable except as noted in HPI & below Physical Exam Constitutional: well developed; no acute distress Eyes: + anicteric sclerae ENMT: Mouth: + oral mucosal abnormality; oral mucous membranes not dry Neck: normal visual inspection and trachea midline Respiratory: normal respiratory effort Auscultation: lungs clear to auscultation bilaterally Cardiovascular: Rate/Rhythm: regular rate Heart Sounds: normal S1 and normal S2 Extremities: no edema Musculoskeletal: Extremities: no cyanosis and no clubbing Skin: normal turgor; no lesions Neurologic: Motor/Sensory: no tremor and no asterixis Psychiatric: Orientation: alert and oriented x 3 Results & Data Vital Signs (Past 12 Hours) Vital Signs Temp Pulse Pulse Pulse Pulse Resp BP 09/10/24 10:00 88 136/76 09/10/24 09:30 82 166/74 H 09/10/24 09:00 84 147/81 H 09/10/24 08:30 83 156/77 H 09/10/24 08:25 36.5 C 85 09/10/24 08:00 09/10/24 07:38 36.4 C L 84 18 09/10/24 07:11 81 18 09/10/24 07:00 82 09/10/24 02:40 36.7 C 85 18 09/09/24 23:00 87 09/09/24 22:43 36.6 C 91 H 18 09/09/24 22:33 89 18 BP Pulse Ox O2 Del Method 09/10/24 10:00 09/10/24 09:30 09/10/24 09:00 09/10/24 08:30 09/10/24 08:25 09/10/24 08:00 Room Air 09/10/24 07:38 149/90 H 92 Room Air 09/10/24 07:11 91 Room Air 09/10/24 07:00 09/10/24 02:40 135/79 94 Room Air 09/09/24 23:00 09/09/24 22:43 150/80 H 93 Room Air 09/09/24 22:33 94 Room Air Laboratory Results Laboratory Results - last 24 hr 09/09/24 09/09/24 09/09/24 11:45 16:45 20:07 Sodium Potassium Chloride Carbon Dioxide Anion Gap BUN Creatinine Est Cr Clr Drug Dosing eGFR BUN/Creatinine Ratio Glucose POC Glucose 158 H 156 H 178 H Calcium Phosphorus Magnesium 09/09/24 09/10/24 09/10/24 23:56 03:18 03:21 Sodium Potassium Chloride Carbon Dioxide Anion Gap BUN Creatinine Est Cr Clr Drug Dosing eGFR BUN/Creatinine Ratio Glucose POC Glucose 150 H 228 H 204 H Calcium Phosphorus Magnesium 09/10/24 09/10/24 04:44 07:41 Sodium 136 Potassium 4.4 Chloride 102 Carbon Dioxide 24 Anion Gap 10 BUN 69 H Creatinine 6.27 H* D Est Cr Clr Drug Dosing 10.6 eGFR 6.99 BUN/Creatinine Ratio 11.0 Glucose 205 H POC Glucose 207 H Calcium 8.6 Phosphorus 4.3 Magnesium 2.1 PG Care Time/CCT Total # of Minutes Spent Total Time Spent with Patient: Total time spent is greater than 50% in coordination of care (as documented) at patient's floor/unit and/or counseling patient: Coding Level of Care Code 94052 SUB INP/OBS CARE 3/50MIN Diagnoses LIDIA (acute kidney injury) N17.9 Hematuria R31.9 Difficulty swallowing liquids R13.10
--- NOTE | 2024-09-10 12:35 | Hospitalist Progress Note ---
Date of Service September 10, 2024 Assessment & Plan (1) Admitted to intensive care unit: (2) Shock: (3) DKA (diabetic ketoacidosis): (4) ARF (acute renal failure): (5) Encephalopathy: (6) Metabolic acidosis: Plan Patient is a 63 yo female with a PMH of PAD, rectal mass on CT awaiting colonoscopy, DM1, diabetic foot ulcer complicated by osteomyelitis, HLD, peripheral neuropathy, hypothyroidism, & lower extremity edema who presented to [facility] on 08/28/24 after being found unresponsive by her family. She was brought to the ED where glucose was 1262 and she was noted to be in DKA with a pH of 6.92. Procalcitonin was elevated on admission. She was intubated for airway protection and initiated on Bicarb and Levophed. Broad spectrum antibiotics were initiated as infectious process could not be ruled out at the time of admission. Now with worsening renal function and in need of HD Vocal cord malfunction/dysphonia likley from intubation patient unable to swallow and vocalize and clear her airwayss consequenlty, speech unable to carry out a proper barium swallow will need fiberoptic eval, possibly under anasthesia ENT has been consulted, they suggest, steroid to help with inflammation I will also try racemic epinephrin to help with laryngeal edema and stridor Seems the steroid and racemic epinephrine helped a bit, although still having a lot of secretions and difficulty swallowing saliva In the long run, if patient is still unable to swallow after steroids, she may d ecide wether to have a PEG tube #Shock Resolved Hypoxic resp failure Resolved Now extubated Saturating well on room air completed a course of cefazolin for suspected PNA. cultures negative so far However, x ray suggests some infiltrates, will start zosyn for suspected aspiration pna #Acute renal failure - due to acute tubular necrosis - nephrology on board -Nephrology on board -Now got a tunneled catheter, for HD has been having HD intermittently Renal function yet to recover -appreciate nephrology #DKA with hyperglycemia - resolved - A1c: 8.7 - currently on lantus and sliding scale -continue to monitor #Elevated troponin - suspect demand and poor clearance in the setting of ARF - EKG unremarkable - bedside ECHO with adequate contractility of RV and LV #Metabolic encephalopathy -Resolved - CT head neg Malnutrition Prolonged NPO status failed swallow eval a couple of times Nutritional services on board will continue PPN Plans for PICC line, so she can get TPN Hematuria Stacy draining pink urine Hb stable urology on board Deconditioning PT/OT on board #Rectal mass - colonoscopy when pt is medically stable #PAD s/p right fem endarterectomy #Peripheral neuropathy #Hypothyroidism: on levothyroxine 100mcg at home, change to IV #HLD: rosuvastatin 40mg at home #Chronic lower extremity edema: lasix 40mg daily at home Deconditioning PT/OT DVT ppx: hep subq , scds continue to monitor in the hospital Admission and Anticipated Discharge Date Admission Date: August 28, 2024 Subjective patient seen and examined, still having a lot of secretions and also difficulty swallowing Review of Systems Review of Systems: All systems reviewed are negative, apart from the ones contained in the history. Physical Exam Physical Exam: The patient is awake, alert and oriented 3, well developed and well nourished, normocephalic and atraumatic, lying in bed and in no acute distress. HEENT--PERRL, EOMI, mucous membranes and oropharynx mildly dry Neck--supple. No JVD. No bruits. Thyroid normal, trachea midline, no adenopathy. Heart--normal S1 and S2. No murmurs, rubs or gallops. Lungs--clear bilaterally, no respiratory distress, no accessory muscle use. Abdomen--normal bowel sounds and soft. Extremities--no cyanosis or clubbing. No edema. Dermatologic--normal skin turgor, normal color, no abnormal lymph nodes, no rash. Neurologic--cranial nerves II through XII grossly intact. Rheumatologic--normal range of motion. Psychiatric--normal affect. Results & Data Results & Data Vital Signs (Past 12 Hours) Vital Signs Temp Pulse Pulse Pulse Pulse Resp BP 09/10/24 12:10 97.7 F 89 20 09/10/24 11:30 97.9 F 81 09/10/24 11:00 84 127/71 09/10/24 10:30 84 122/77 09/10/24 10:00 88 136/76 09/10/24 09:30 82 166/74 H 09/10/24 09:00 84 147/81 H 09/10/24 08:30 83 156/77 H 09/10/24 08:25 97.7 F 85 09/10/24 08:00 09/10/24 07:38 97.5 F L 84 18 09/10/24 07:11 81 18 09/10/24 07:00 82 09/10/24 02:40 98.1 F 85 18 BP BP Pulse Ox O2 Del Method 09/10/24 12:10 136/83 92 Room Air 09/10/24 11:30 137/71 09/10/24 11:00 09/10/24 10:30 09/10/24 10:00 09/10/24 09:30 09/10/24 09:00 09/10/24 08:30 09/10/24 08:25 09/10/24 08:00 Room Air 09/10/24 07:38 149/90 H 92 Room Air 09/10/24 07:11 91 Room Air 09/10/24 07:00 09/10/24 02:40 135/79 94 Room Air PG Care Time/CCT Total # of Minutes Spent Total Time Spent with Patient: Total time spent is greater than 50% in coordination of care (as documented) at patient's floor/unit and/or counseling patient: Coding Level of Care Code 84756 SUB INP/OBS CARE 2/35MIN Diagnoses Admitted to intensive care unit Z78.9 Shock R57.9 DKA (diabetic ketoacidosis) E13.11 Diabetes mellitus complication detail: with coma Diabetes mellitus type: other specified (including SHLIPA) ARF (acute renal failure) N17.9 Encephalopathy G93.40 Metabolic acidosis E87.20 Time Spent (min) 35 (3) DKA (diabetic ketoacidosis) Diabetes mellitus complication detail: with coma Diabetes mellitus type: other specified (including SHILPA) Qualified Code(s): E13.11 - Other specified diabetes mellitus with ketoacidosis with coma
[2024-09-10] MEDS: LEVOTHYROXINE SODIUM 75 MCG in SYRINGE 0 ML IV SCH (12:44)
--- NOTE | 2024-09-10 14:12 | Pharmacy Report ---
Pharmacy Glycemic Short Note 2 - Date of Service September 10, 2024 - Glycemic Short BSG Results (Last 24 hours): 09/09/24 09/09/24 09/09/24 16:45 20:07 23:56 Glucose POC Glucose 156 H 178 H 150 H 09/10/24 09/10/24 09/10/24 03:18 03:21 04:44 Glucose 205 H POC Glucose 228 H 204 H 09/10/24 09/10/24 07:41 12:00 Glucose POC Glucose 207 H 144 H OUTPATIENT ANTIDIABETIC REGIMEN: * Lantus 15 units SC BID * Novolog 8 units SC AC * A1c = 8.7% (08/28/24) ASSESSMENT: 09/10: * Received 39 units of insulin yesterday, 27 of which were basal. BSGs were: [phone] mg/dL. * Fasting BSG increased to 207 mg/dL this AM. May be due to steroids. Remains on SoluMedrol 40 mg IV every 8 hours. Will increase basal scale by ~20% today. * Continues on Zosyn and PPN. To undergo another HD session today. Plan is to have PICC line placed this afternoon and possibly start TPN tomorrow. Currently covering for dextrose in PN bag with Novolog. 09/09: * Tania received 25 units of insulin yeserday, 17 of which were basal. BSGs were: [phone] mg/dL. This has been about average for the patient since starting on PPN. Did receive HD yesterday. * Fasting BSG improved to 158 mg/dL this AM. No plans for HD today. Remains on 24 hour PPN that contains 60 total g of Dextrose. * Patient also started on Zosyn for pulmonary source today as well as SoluMedrol 40 mg IV every 8 hours. Suspect this will increase her BSGs throughout the evening. * Received previous basal dose of 7 units this AM. Will add 8 units x 1 at lunch given addition of steroids. This matches the patients home dose of 15 units in the AM. Will start a scaled basal dose this evening to provide a max of 15 units BID which is what the patient takes at home. Tightened CF this AM as well. Added a carb ratio of 5 when steroids were started. Instructed RN that PPN will provide 10 g of carbs/dextrose every 4 hours so patient should receive at minimum, 2 units of bolus insulin every 4 hours (does not include correctional dose for BSGs above goal). 09/05: * Pts BSGs have been mostly in goal since yesterday; 111 this morning and 145 at lunch * Pt continues to be in NPO status and was not given her Lantus dose this morni ng possibly because of going to the OR for cath placement * Pt also starting PPN today d/t NPO status/inability for using tube feeds. * Will keep NovoLog parameters unchanged and continue same Lantus dosing in addition to one time 5 unit dose at lunch to make up for the one she missed this morning. 09/03: * Type 1 diabetic admitted for severe DKA due to ~3 day h/o NV and abdominal pain with omission of insulin, hypotension requiring pressors, severe LIDIA and resp failure requiring intubation. * Severe LIDIA persists, now receiving [employer] in the form of intermittent HD (performed 09/01 and 09/02) * Patient was extubated this AM, tube feeds have been discontinued. * Patient will be at risk for hypoglycemia in setting of no IV or enteral carb provision. May need to consider addition of IV dextrose provision to permit ongoing basal insulin administration to type 1 diabetic. Will scale back basal insulin doses, continue to admin BID to allow for greater flexibility to hold a dose if needed. PLAN FOR INPATIENT GLYCEMIC CONTROL: * Basal insulin * Lantus 10-20 units SC BID (see eMAR for more details) * Bolus insulin * NovoLog per scale Q4hrs * Goal Range: Low 110 mg/dL - High 150 mg/dL * Correction Factor: 15 mg/dL/unit * Nutritional / Prandial insulin per carb ratio of 1 unit per 5 grams CHO consumed
[2024-09-10] MEDS: PERIPHERAL TPN IV SCH (16:11)
[2024-09-10] MEDS: CLINOLIPID 20% IV FAT EMULSION 250 ML IV SCH (16:11)
[2024-09-10] MEDS: [UNRECOGNIZED DRUG - OTHER] IV SCH (16:11)
[2024-09-11 08:44] LABS: Hematocrit (blood only) 32.2 % (37.0-47.0); Hemoglobin 11.2 g/dl (12.0-16.0); Mean Corpuscular Hemoglobin 29.7 pg (25.0-34.0); Mean Corpuscular Hgb Conc 34.8 g/dL (32.0-36.0); Mean Corpuscular Volume 85.4 fL (80.0-100.0); Mean Platelet Volume 10.3 fL (9.4-12.4); Platelet Count 247 K/uL (130-400); RDW Coefficient of Variation 13.2 % (11.5-14.5); RDW Standard Deviation 40.8 fL (36.4-46.3); Red Blood Count 3.77 M/uL (4.20-5.40)
[2024-09-11 09:07] LABS: Anion Gap 8 (3-11); BUN Creatinine Ratio 11.2 (10-20); Blood Urea Nitrogen 52 mg/dl (6-23); Calcium 8.6 mg/dl (8.6-10.3); Carbon Dioxide 25 mmol/L (21-32); Chloride 103 mmol/L (98-107); Creatinine Clr Calc Pharmacy 14.5 ml/min; Glucose 197 mg/dl (70-99(Fasting)); Magnesium 2.1 mg/dl (1.7-2.4); Phosphorus 4.2 mg/dl (2.5-4.9); Sodium 136 mmol/L (136-145)
--- NOTE | 2024-09-11 09:50 | Nephrology Progress Note ---
Date of Service September 11, 2024 Assessment & Plan (1) LIDIA (acute kidney injury): Plan: LIDIA attributed to ATN in setting of DKA, hypotension + volume depletion. Baseline creatinine <1 mg/dL. Renal ultrasound with mild right-sided hydronephrosis but otherwise unremarkable. Temporary dialysis catheter placed on 09/01/24 has been removed. Started HD 09/01. TDC was placed 09/05/[address] Fitzgerald. Tania has remains dialysis dependent. Daily evaluation provided while inpatient while monitoring for renal recovery. Next anticipated HD will be tomorrow. Document I/O's. Repeat serum metabolic profile tomorrow AM. Medications are appropriately dosed for kidney function. (2) Hematuria: Plan: Stacy continues draining slightly pink urine. Urology outpatient evaluation planned. No concerning lesions on CT. (3) Difficulty swallowing liquids: Plan: Remains NPO on TPN. Follow up video swallow planned for today. Tania reports improved ability to handle secretions. She also talked about possible PEG placement. Admission and Anticipated Discharge Date Admission Date: August 28, 2024 Subjective No acute events overnight. Tania is resting comfortably in bed this AM. She remains NPO. She feels well overall. Tolerated HD yesterday without complications. Breathing comfortably this AM. Stacy draining slightly pink urine. No fevers or chills. Review of Systems Review of Systems: All systems reviewed & are unremarkable except as noted in HPI & below Physical Exam Constitutional: well developed; no acute distress Eyes: + anicteric sclerae ENMT: Mouth: oral mucous membranes not dry Neck: normal visual inspection and trachea midline Respiratory: normal respiratory effort Auscultation: lungs clear to auscultation bilaterally Cardiovascular: Rate/Rhythm: regular rate Heart Sounds: normal S1 and normal S2 Extremities: no edema Musculoskeletal: Extremities: no cyanosis and no clubbing Skin: normal turgor; no lesions Neurologic: Motor/Sensory: no tremor and no asterixis Psychiatric: Orientation: alert and oriented x 3 Results & Data Vital Signs (Past 12 Hours) Vital Signs Temp Pulse Pulse Pulse Resp BP Pulse Ox 09/11/24 08:00 09/11/24 07:13 36.8 C 79 18 156/92 H 92 09/11/24 07:00 81 09/11/24 03:50 36.5 C 81 18 153/85 H 93 09/10/24 23:24 86 01/15/25 22:53 36.5 C 90 18 126/84 92 O2 Del Method 09/11/24 08:00 Room Air 09/11/24 07:13 Room Air 09/11/24 07:00 09/11/24 03:50 Room Air 09/10/24 23:24 09/10/24 22:53 Room Air Laboratory Results Laboratory Results - last 24 hr 09/10/24 09/10/24 09/10/24 04:44 12:00 15:02 WBC RBC Hgb Hct MCV MCH MCHC RDW Std Deviation RDW Coeff of Tressa Plt Count MPV Sodium Potassium Chloride Carbon Dioxide Anion Gap BUN Creatinine Est Cr Clr Drug Dosing eGFR BUN/Creatinine Ratio Glucose POC Glucose 144 H 171 H Calcium Phosphorus Magnesium Triglycerides 107 09/10/24 09/10/24 09/11/24 19:31 23:27 03:14 WBC RBC Hgb Hct MCV MCH MCHC RDW Std Deviation RDW Coeff of Tressa Plt Count MPV Sodium Potassium Chloride Carbon Dioxide Anion Gap BUN Creatinine Est Cr Clr Drug Dosing eGFR BUN/Creatinine Ratio Glucose POC Glucose 186 H 180 H 169 H Calcium Phosphorus Magnesium Triglycerides 09/11/24 09/11/24 09/11/24 07:11 08:28 09:18 WBC 21.60 H RBC 3.77 L Hgb 11.2 L Hct 32.2 L MCV 85.4 MCH 29.7 MCHC 34.8 RDW Std Deviation 40.8 RDW Coeff of Tressa 13.2 Plt Count 247 MPV 10.3 Sodium 136 Potassium TNP Pending Chloride 103 Carbon Dioxide 25 Anion Gap 8 BUN 52 H Creatinine 4.66 H* D Est Cr Clr Drug Dosing 14.5 eGFR 9.98 BUN/Creatinine Ratio 11.2 Glucose 197 H POC Glucose 180 H Calcium 8.6 Phosphorus 4.2 Magnesium 2.1 Triglycerides PG Care Time/CCT Total # of Minutes Spent Total Time Spent with Patient: Total time spent is greater than 50% in coordination of care (as documented) at patient's floor/unit and/or counseling patient: Coding Level of Care Code 25011 SUB INP/OBS CARE 3/50MIN Diagnoses LIDIA (acute kidney injury) N17.9 Hematuria R31.9 Difficulty swallowing liquids R13.10
--- NOTE | 2024-09-11 11:23 | Hospitalist Progress Note ---
Date of Service September 11, 2024 Assessment & Plan (1) Admitted to intensive care unit: (2) Shock: (3) DKA (diabetic ketoacidosis): (4) ARF (acute renal failure): (5) Encephalopathy: (6) Metabolic acidosis: Plan Patient is a 63 yo female with a PMH of PAD, rectal mass on CT awaiting colonoscopy, DM1, diabetic foot ulcer complicated by osteomyelitis, HLD, peripheral neuropathy, hypothyroidism, & lower extremity edema who presented to [facility] on 08/28/24 after being found unresponsive by her family. She was brought to the ED where glucose was 1262 and she was noted to be in DKA with a pH of 6.92. Procalcitonin was elevated on admission. She was intubated for airway protection and initiated on Bicarb and Levophed. Broad spectrum antibiotics were initiated as infectious process could not be ruled out at the time of admission. Now with worsening renal function and in need of HD Vocal cord malfunction/dysphonia likley from intubation patient unable to swallow and vocalize and clear her airwayss consequenlty, speech unable to carry out a proper barium swallow will need fiberoptic eval, possibly under anasthesia ENT has been consulted, they suggest, steroid to help with inflammation I will also try racemic epinephrin to help with laryngeal edema and stridor Seems the steroid and racemic epinephrine helped a bit, although still having a lot of secretions and difficulty swallowing saliva In the long run, if patient is still unable to swallow after steroids, she may d ecide wether to have a PEG tube, she is agreeable to PEG tube However, will continue PPN for now (unable to insert PIIC for TPN) PPN has a window of about 7-14 days maximum, after that, and patient still unable to swallow, she is open to PEG tube repeat video today,09/11 will add glycopyrrolate to help with secretions Leucocytosis Most likely from steroids wbc was normal prior to starting steroids #Shock Resolved Hypoxic resp failure Resolved Now extubated Saturating well on room air completed a course of cefazolin for suspected PNA. cultures negative so far However, x ray suggests some infiltrates, will start zosyn for suspected aspiration pna, today is day 4 of zosyn Will shoot for 5 days of zosyn and discontinue #Acute renal failure - due to acute tubular necrosis - nephrology on board -Nephrology on board -Now got a tunneled catheter, for HD has been having HD intermittently Renal function yet to recover -appreciate nephrology #DKA with hyperglycemia - resolved - A1c: 8.7 - currently on lantus and sliding scale -continue to monitor #Elevated troponin - suspect demand and poor clearance in the setting of ARF - EKG unremarkable - bedside ECHO with adequate contractility of RV and LV #Metabolic encephalopathy -Resolved - CT head neg Malnutrition Prolonged NPO status failed swallow eval a couple of times (repeat video today,09/11) Nutritional services on board will continue PPN Unable to get PICC for TPN PPN has a window of about 7-14 days maximum, after that, and patient still unable to swallow, she is open to PEG tube Hematuria Stacy draining pink urine Hb stable urology on board Deconditioning PT/OT on board #Rectal mass - colonoscopy when pt is medically stable #PAD s/p right fem endarterectomy #Peripheral neuropathy #Hypothyroidism: on levothyroxine 100mcg at home, change to IV #HLD: rosuvastatin 40mg at home #Chronic lower extremity edema: lasix 40mg daily at home Deconditioning PT/OT DVT ppx: hep subq , scds continue to monitor in the hospital Admission and Anticipated Discharge Date Admission Date: August 28, 2024 Subjective patient seen and examined, participating in PT, still having a lot of secretions Review of Systems Review of Systems: All systems reviewed are negative, apart from the ones contained in the history. Physical Exam Physical Exam: The patient is awake, alert and oriented 3, well developed and well nourished, normocephalic and atraumatic, lying in bed and in no acute distress. HEENT--PERRL, EOMI, mucous membranes and oropharynx mildly dry Neck--supple. No JVD. No bruits. Thyroid normal, trachea midline, no adenopathy. Heart--normal S1 and S2. No murmurs, rubs or gallops. Lungs--clear bilaterally, no respiratory distress, no accessory muscle use. Abdomen--normal bowel sounds and soft. Extremities--no cyanosis or clubbing. No edema. Dermatologic--normal skin turgor, normal color, no abnormal lymph nodes, no rash. Neurologic--cranial nerves II through XII grossly intact. Rheumatologic--normal range of motion. Psychiatric--normal affect. Results & Data Results & Data Vital Signs (Past 12 Hours) Vital Signs Temp Pulse Pulse Pulse Resp BP Pulse Ox 09/11/24 11:12 97.2 F L 82 18 161/87 H 95 09/11/24 08:00 09/11/24 07:13 98.2 F 79 18 156/92 H 92 09/11/24 07:00 81 09/11/24 03:50 97.7 F 81 18 153/85 H 93 09/10/24 23:24 86 O2 Del Method 09/11/24 11:12 Room Air 09/11/24 08:00 Room Air 09/11/24 07:13 Room Air 09/11/24 07:00 09/11/24 03:50 Room Air 09/10/24 23:24 PG Care Time/CCT Total # of Minutes Spent Total Time Spent with Patient: Total time spent is greater than 50% in coordination of care (as documented) at patient's floor/unit and/or counseling patient: Coding Level of Care Code 75986 SUB INP/OBS CARE 2/35MIN Diagnoses Admitted to intensive care unit Z78.9 Shock R57.9 DKA (diabetic ketoacidosis) E13.11 Diabetes mellitus complication detail: with coma Diabetes mellitus type: other specified (including SHILPA) ARF (acute renal failure) N17.9 Encephalopathy G93.40 Metabolic acidosis E87.20 Time Spent (min) 35 (3) DKA (diabetic ketoacidosis) Diabetes mellitus complication detail: with coma Diabetes mellitus type: other specified (including SHILPA) Qualified Code(s): E13.11 - Other specified diabetes mellitus with ketoacidosis with coma
--- NOTE | 2024-09-11 12:16 | Fluoroscopy Report ---
FL video swallow CLINICAL HISTORY: 63 years-old Female with r/o aspiration. TECHNIQUE: Video fluoroscopic evaluation of swallowing was performed in the AP and lateral projection s by the speech pathology staff. The patient is fed varying consistencies of barium. FLUOROSCOPY TIME: 1.32 minutes. 2684 images. 4.51 mGy. COMPARISON STUDY: None. FINDINGS: There is abnormal hyoid excursion and epiglottic deflection. Disordered and delayed orophar yngeal transit. Aspiration with thin liquid barium. Retention noted within the valleculae and pirifor m sinuses with multiple consistencies. IMPRESSION: 1. Aspiration with thin liquid barium. 2. Please see the speech pathologist report for detailed findings and recommendations. ACT 112: Negative or not required by law. Electronically signed by: Wyatt Wolf M.D. 09/11/2024 12:13 PM
[2024-09-11] MEDS: GLYCOPYRROLATE 1 MG TAB PO SCH (13:21)
[2024-09-11] MEDS: CLINOLIPID 20% IV FAT EMULSION 250 ML IV SCH (15:31)
[2024-09-11] MEDS: [UNRECOGNIZED DRUG - OTHER] IV SCH (15:31)
[2024-09-11] MEDS: PERIPHERAL TPN IV SCH (15:31)
[2024-09-12 08:07] LABS: Hematocrit (blood only) 32.7 % (37.0-47.0); Hemoglobin 11.4 g/dl (12.0-16.0); Mean Corpuscular Hemoglobin 29.9 pg (25.0-34.0); Mean Corpuscular Hgb Conc 34.9 g/dL (32.0-36.0); Mean Corpuscular Volume 85.8 fL (80.0-100.0); Mean Platelet Volume 9.9 fL (9.4-12.4); Platelet Count 236 K/uL (130-400); RDW Coefficient of Variation 13.1 % (11.5-14.5); RDW Standard Deviation 40.7 fL (36.4-46.3); Red Blood Count 3.81 M/uL (4.20-5.40); White Blood Count 20.58 K/ul (4.8-10.8)
[2024-09-12 08:25] LABS: BUN Creatinine Ratio 13.3 (10-20); Bilirubin,Total 0.5 mg/dl (0.2-1.0); Calcium 8.6 mg/dl (8.6-10.3); Creatinine Clr Calc Pharmacy 12.5 ml/min; Magnesium 2.2 mg/dl (1.7-2.4); Phosphorus 4.7 mg/dl (2.5-4.9); Potassium 4.3 mmol/L (3.5-5.1)
[2024-09-12] MEDS: LANTUS PER UNIT CHARGE SC SCH ×2 (08:31→20:15)
--- NOTE | 2024-09-12 08:45 | Hospitalist Progress Note ---
Date of Service September 12, 2024 Assessment & Plan (1) Admitted to intensive care unit: (2) Shock: (3) DKA (diabetic ketoacidosis): (4) ARF (acute renal failure): (5) Encephalopathy: (6) Metabolic acidosis: Plan Patient is a 63 yo female with a PMH of PAD, rectal mass on CT awaiting colonoscopy, DM1, diabetic foot ulcer complicated by osteomyelitis, HLD, peripheral neuropathy, hypothyroidism, & lower extremity edema who presented to [facility] on 08/28/24 after being found unresponsive by her family. She was brought to the ED where glucose was 1262 and she was noted to be in DKA with a pH of 6.92. Procalcitonin was elevated on admission. She was intubated for airway protection and initiated on Bicarb and Levophed. Broad spectrum antibiotics were initiated as infectious process could not be ruled out at the time of admission. Now with worsening renal function and in need of HD #Vocal cord malfunction/dysphonia - likely from intubation - patient unable to swallow and vocalize and clear her airways, consequently, speech unable to carry out a proper barium swallow - will need fiberoptic eval, possibly under anasthesia - ENT has been consulted, they suggest, steroid to help with inflammation - Seems the steroid and racemic epinephrine helped a bit, although still having a lot of secretions and difficulty swallowing saliva - In the long run, if patient is still unable to swallow after steroids, she may decide whether to have a PEG tube, she is agreeable to PEG tube - However, will continue PPN for now (unable to insert PIIC for TPN) - PPN has a window of about 7-14 days maximum, after that, and patient still unable to swallow, she is open to PEG tube - pt failed repeat video swallow on 09/11, final [employer] recs appreciated , GI consulted for PEG - will add glycopyrrolate to help with secretions #Leucocytosis - Most likely from steroids - wbc was normal prior to starting steroids #Shock Resolved #Hypoxic resp failure - Resolved - Now extubated - Saturating well on room air - completed a course of cefazolin for suspected PNA. - cultures negative so far - However, x ray suggests some infiltrates, will start zosyn for suspected aspiration pna (09/09 - 09/16) #Acute renal failure - due to acute tubular necrosis - nephrology on board - Nephrology on board - Now got a tunneled catheter, for HD - has been having HD intermittently - Renal function yet to recover - appreciate nephrology #DKA with hyperglycemia - resolved - A1c: 8.7 - currently on lantus and sliding scale - continue to monitor #Elevated troponin - suspect demand and poor clearance in the setting of ARF - EKG unremarkable - bedside ECHO with adequate contractility of RV and LV #Metabolic encephalopathy - Resolved - CT head neg #Malnutrition - Prolonged NPO status - failed swallow eval a couple of times (repeat video today,09/11) - Nutritional services on board - will continue PPN - Unable to get PICC for TPN - PPN has a window of about 7-14 days maximum, after that, and patient still unable to swallow, she is open to PEG tube #Hematuria - Stacy draining pink urine - Hb stable - urology on board #Deconditioning - PT/OT on board #Rectal mass - colonoscopy when pt is medically stable #PAD s/p right fem endarterectomy #Peripheral neuropathy #Hypothyroidism: on levothyroxine 100mcg at home, change to IV #HLD: rosuvastatin 40mg at home #Chronic lower extremity edema: lasix 40mg daily at home DVT ppx: hep subq , scds Admission and Anticipated Discharge Date Admission Date: August 28, 2024 Subjective No acute events overnight Currently no new complaints Review of Systems Review of Systems: Comprehensive ROS unremarkable Physical Exam Physical Exam: Gen: NAD HEENT: NC/AT, MMM Lungs: CTAB anteriorly CVS: s1s2 nl Abd: protuberant, nl bowel sounds Ext: pt is more edematous Neuro: sedated Results & Data Results & Data Vital Signs (Past 12 Hours) Vital Signs Temp Pulse Pulse Pulse Resp BP BP 09/12/24 08:08 36.4 C L 76 19 175/85 H 09/12/24 03:39 36.4 C L 71 18 137/80 09/11/24 22:28 36.7 C 82 18 147/83 H 09/11/24 21:45 82 Pulse Ox O2 Del Method 09/12/24 08:08 92 Room Air 09/12/24 03:39 92 Room Air 09/11/24 22:28 94 Room Air 09/11/24 21:45 PG Care Time/CCT Total # of Minutes Spent Total Time Spent with Patient: Total time spent is greater than 50% in coordination of care (as documented) at patient's floor/unit and/or counseling patient: Coding Level of Care Code 55208 SUB INP/OBS CARE 2/35MIN Diagnoses Admitted to intensive care unit Z78.9 Shock R57.9 DKA (diabetic ketoacidosis) E13.11 Diabetes mellitus complication detail: with coma Diabetes mellitus type: other specified (including SHILPA) ARF (acute renal failure) N17.9 Encephalopathy G93.40 Metabolic acidosis E87.20 (3) DKA (diabetic ketoacidosis) Diabetes mellitus complication detail: with coma Diabetes mellitus type: othe r specified (including SHILPA) Qualified Code(s): E13.11 - Other specified diabetes mellitus with ketoacidosis with coma
--- NOTE | 2024-09-12 11:58 | Nephrology Progress Note ---
Date of Service September 12, 2024 Assessment & Plan (1) LIDIA (acute kidney injury): Plan: LIDIA attributed to ATN in setting of DKA, hypotension + volume depletion. Baseline creatinine <1 mg/dL. Renal ultrasound with mild right-sided hydronephrosis but otherwise unremarkable. Temporary dialysis catheter placed on 09/01/24 has been removed. Started HD 09/01. TDC was placed 09/05/[address] Fitzgerald. Creatinine continues to rise between HD treatments. Orders for HD today were entered into the EHR and reviewed with the hydraulic operator. Tania was seen and evaluated during treatment. She is tolerating dialysis well. No complications with treatment. Will monitor over weekend for evidence of renal recovery. Document I/O's. Repeat serum metabolic profile tomorrow AM. Medications are appropriately dosed for kidney function. (2) Hematuria: Plan: Stacy continues draining slightly pink urine but clearing. Urology consult completed. Outpatient evaluation planned. No concerning lesions on CT. (3) Difficulty swallowing liquids: Plan: Remains NPO on TPN. Video swallow demonstrated continued aspiration. Possible PEG tube placement. Admission and Anticipated Discharge Date Admission Date: August 28, 2024 Subjective No acute events overnight. Tania was seen and evaluated during hemodialysis this AM. She is tolerating treatment well. Overall, she feels well and has no complaints. Video swallow demonstrated continued aspiration. Review of Systems Review of Systems: All systems reviewed & are unremarkable except as noted in HPI & below Physical Exam Constitutional: well developed; no acute distress Eyes: + anicteric sclerae ENMT: Mouth: + oral mucosal abnormality; oral mucous membranes not dry Neck: normal visual inspection and trachea midline Respiratory: normal respiratory effort Auscultation: lungs clear to auscultation bilaterally Cardiovascular: Rate/Rhythm: regular rate Heart Sounds: normal S1 and normal S2 Extremities: no edema Musculoskeletal: Extremities: no cyanosis and no clubbing Skin: normal turgor; no lesions Neurologic: Motor/Sensory: no tremor and no asterixis Psychiatric: Orientation: alert and oriented x 3 Results & Data Vital Signs (Past 12 Hours) Vital Signs Temp Pulse Pulse Resp BP BP BP 09/12/24 11:30 77 146/81 H 09/12/24 11:00 80 162/87 H 09/12/24 10:30 78 157/91 H 09/12/24 10:00 75 174/85 H 09/12/24 09:30 77 178/89 H 09/12/24 09:00 78 190/90 H 09/12/24 08:52 36.5 C 77 09/12/24 08:08 36.4 C L 76 19 175/85 H 09/12/24 08:00 09/12/24 08:00 70 09/12/24 03:39 36.4 C L 71 18 137/80 Pulse Ox O2 Del Method 09/12/24 11:30 09/12/24 11:00 09/12/24 10:30 09/12/24 10:00 09/12/24 09:30 09/12/24 09:00 09/12/24 08:52 09/12/24 08:08 92 Room Air 09/12/24 08:00 Room Air 09/12/24 08:00 09/12/24 03:39 92 Room Air Laboratory Results Laboratory Results - last 24 hr 09/11/24 09/11/24 09/11/24 15:55 20:12 23:59 WBC RBC Hgb Hct MCV MCH MCHC RDW Std Deviation RDW Coeff of Tressa Plt Count MPV Sodium Potassium Chloride Carbon Dioxide Anion Gap BUN Creatinine Est Cr Clr Drug Dosing eGFR BUN/Creatinine Ratio Glucose POC Glucose 202 H 199 H 186 H Calcium Phosphorus Magnesium Total Bilirubin AST Alkaline Phosphatase 09/12/24 09/12/24 09/12/24 03:32 07:31 08:20 WBC 20.58 H RBC 3.81 L Hgb 11.4 L Hct 32.7 L MCV 85.8 MCH 29.9 MCHC 34.9 RDW Std Deviation 40.7 RDW Coeff of Tressa 13.1 Plt Count 236 MPV 9.9 Sodium 137 Potassium 4.3 Chloride 103 Carbon Dioxide 23 Anion Gap 11 BUN 71 H Creatinine 5.34 H* D Est Cr Clr Drug Dosing 12.5 eGFR 8.48 BUN/Creatinine Ratio 13.3 Glucose 192 H POC Glucose 182 H 218 H Calcium 8.6 Phosphorus 4.7 Magnesium 2.2 Total Bilirubin 0.5 AST 31 Alkaline Phosphatase 78 PG Care Time/CCT Total # of Minutes Spent Total Time Spent with Patient: Total time spent is greater than 50% in coordination of care (as documented) at patient's floor/unit and/or counseling patient: Coding Level of Care Code 04870 SUB INP/OBS CARE 3/50MIN Diagnoses LIDIA (acute kidney injury) N17.9 Hematuria R31.9 Difficulty swallowing liquids R13.10
--- NOTE | 2024-09-12 14:40 | Pharmacy Report ---
Pharmacy Glycemic Short Note 2 - Date of Service September 12, 2024 - Glycemic Short BSG Results (Last 24 hours): 09/11/24 09/11/24 09/11/24 15:55 20:12 23:59 Glucose POC Glucose 202 H 199 H 186 H 09/12/24 09/12/24 09/12/24 03:32 07:31 08:20 Glucose 192 H POC Glucose 182 H 218 H 09/12/24 12:18 Glucose POC Glucose 109 H OUTPATIENT ANTIDIABETIC REGIMEN: * Lantus 15 units SC BID * Novolog 8 units SC AC * A1c = 8.7% (08/28/24) ASSESSMENT: 09/12 * Tania received 56 units of insulin yesterday (30 were basal) * Fasting BSG this AM elevated, will increase basal insulin by at least 15% allowing for extra if BSGs still elevated * No changes to NovoLog at this time, consider tightening carbohydrate ratio if BSGs remain elevated 09/10: * Received 39 units of insulin yesterday, 27 of which were basal. BSGs were: [phone] mg/dL. * Fasting BSG increased to 207 mg/dL this AM. May be due to steroids. Remains on SoluMedrol 40 mg IV every 8 hours. Will increase basal scale by ~20% today. * Continues on Zosyn and PPN. To undergo another HD session today. Plan is to have PICC line placed this afternoon and possibly start TPN tomorrow. Currently covering for dextrose in PN bag with Novolog. 09/09: * Tania received 25 units of insulin yeserday, 17 of which were basal. BSGs were: [phone] mg/dL. This has been about average for the patient since starting on PPN. Did receive HD yesterday. * Fasting BSG improved to 158 mg/dL this AM. No plans for HD today. Remains on 24 hour PPN that contains 60 total g of Dextrose. * Patient also started on Zosyn for pulmonary source today as well as SoluMedrol 40 mg IV every 8 hours. Suspect this will increase her BSGs throughout the evening. * Received previous basal dose of 7 units this AM. Will add 8 units x 1 at lunch given addition of steroids. This matches the patients home dose of 15 units in the AM. Will start a scaled basal dose this evening to provide a max of 15 units BID which is what the patient takes at home. Tightened CF this AM as well. Added a carb ratio of 5 when steroids were started. Instructed RN that PPN will provide 10 g of carbs/dextrose every 4 hours so patient should receive at minimum, 2 units of bolus insulin every 4 hours (does not include correctional dose for BSGs above goal). 09/05: * Pts BSGs have been mostly in goal since yesterday; 111 this morning and 145 at lunch * Pt continues to be in NPO status and was not given her Lantus dose this morning possibly because of going to the OR for cath placement * Pt also starting PPN today d/t NPO status/inability for using tube feeds. * Will keep NovoLog parameters unchanged and continue same Lantus dosing in addition to one time 5 unit dose at lunch to make up for the one she missed this morning. 09/03: * Type 1 diabetic admitted for severe DKA due to ~3 day h/o NV and abdominal pain with omission of insulin, hypotension requiring pressors, severe LIDIA and resp failure requiring intubation. * Severe LIDIA persists, now receiving [employer] G[employer]ACING in the form of intermittent HD (performed 09/01 and 09/02) * Patient was extubated this AM, tube feeds have been discontinued. * Patient will be at risk for hypoglycemia in setting of no IV or enteral carb provision. May need to consider addition of IV dextrose provision to permit ongoing basal insulin administration to type 1 diabetic. Will scale back basal insulin doses, continue to admin BID to allow for greater flexibility to hold a dose if needed. PLAN FOR INPATIENT GLYCEMIC CONTROL: * Basal insulin * Lantus 20 units SQ QAM * Lantus 10-20 units SC HS (see eMAR for more details) * Bolus insulin * NovoLog per scale Q4hrs * Goal Range: Low 110 mg/dL - High 150 mg/dL * Correction Factor: 15 mg/dL/unit * Nutritional / Prandial insulin per carb ratio of 1 unit per 5 grams CHO consumed
[2024-09-12] MEDS: CLINOLIPID 20% IV FAT EMULSION 250 ML IV SCH (15:28)
[2024-09-12] MEDS: PERIPHERAL TPN IV SCH (15:29)
[2024-09-12] MEDS: [UNRECOGNIZED DRUG - OTHER] IV SCH (15:29)
--- NOTE | 2024-09-12 15:41 | Pharmacy Report ---
Pharmacy PN Follow-up Note - Date of Service September 12, 2024 - Subjective Patient is currently on day #[] of [PPN][TPN] for [Indication]. - Objective Height & Weight (Last Documented) Height 5 ft 7 in Weight 91.2 kg Diet Order(s) 09/05/24 00:01 NPO Intake & Ouput (24hrs) 09/11/24 09/12/24 09/13/24 06:59 06:59 06:59 Intake Total 1728.2 / 1728.2 1696.332 / 5368.743 5721.2 / 1378.2 Output Total 725 / 725 750 / 750 300 / 300 Balance 1003.2 / 1003.2 946.332 / 890.578 7123.2 / 1078.2 Selected Laboratory Results 09/12/24 07:31 Sodium 137 Potassium 4.3 Chloride 103 Carbon Dioxide 23 Anion Gap 11 BUN 71 H Creatinine 5.34 H* D BUN/Creatinine Ratio 13.3 Glucose 192 H Calcium 8.6 Phosphorus 4.7 Magnesium 2.2 Total Bilirubin 0.5 AST 31 Alkaline Phosphatase 78 - Assessment & Plan Assessment: 09/12 * Day #8 of PPN. IV team unable to place a PICC line. Plan is to continue PPN up to the max recommended per ASPEN to see if swallowing improves before getting a feeding tube. Patient is agreeable to PEG tube if needed. * Labs stable, dialysis today, no changes to TPN content. * Glycemic control suboptimal, increase SQ insulin today, may need to add some insulin to the PPN bag. 09/09 * Day #5 of PPN. Unsure if ENT will be doing fiberoptic procedure in OR under anaesthesia or not. * Electrolytes have been fine. PPN is limited by both fluid restriction of 1500 mL/day (per provider) as well as osmolarity constraints. We are not close to meeting goal macronutrients with PPN. * Labs are ordered for next several days. Triglycerides mildly elevated at 237 mg/dL initially, improved to 202 mg/dL yesterday. Will one more level tomorrow to ensure trigs continue to trend down given degree of renal impairment. * No plans for HD today. Significant risk for volume overload given degree of renal impairment. Started on Zosyn today. * Will recommend that attending make plans to gain central access for TPN or consider a feeding tube for enteral nutrition as it appears patient will be NPO for several more days. ASPEN recommends a soft max of 7 days PPN with a hard max of 10-14 days total. Would prefer to get patient transitioned to TPN prior to the weekend to optimize nutritional intake. Plan: * For Day #5 of PPN administration, the following will be ordered: * Macronutrients: * Amino Acids: 51 grams/day * Dextrose: 60 grams/day * Lipids: 50 grams/day * Micronutrients: * Sodium chloride: 50 mEq/day * Sodium acetate: 50 mEq/day * Potassium chloride: 20 mEq/day * Magnesium sulfate: 4.06 mEq/day * Calcium gluconate: 4.65 mEq/day * Multivitamins: 10 mL/day * Trace elements: 1 mL/day * Thiamine: 100 mg/day * Folic Acid: 1 mg/day * Total volume of 1278.2 mL will be infused over 24 hours and will provide 908 kcal/day * Patient is on PPN which has a maximum mOsm/L of 900. Final osmolarity of current solution is 833 mOsm/L. * Labs will be ordered per PN protocol. * Pharmacy will follow and adjust PN orders on a daily basis. Thank you!
[2024-09-13] MEDS: bisacodyL 10 MG SUPP PR PRN (05:35)
[2024-09-13 08:06] LABS: Hematocrit (blood only) 33.9 % (37.0-47.0); Hemoglobin 11.7 g/dl (12.0-16.0); Mean Corpuscular Hgb Conc 34.5 g/dL (32.0-36.0); Mean Corpuscular Volume 86.9 fL (80.0-100.0); Mean Platelet Volume 10.2 fL (9.4-12.4); Platelet Count 274 K/uL (130-400); RDW Coefficient of Variation 13.3 % (11.5-14.5); White Blood Count 21.33 K/ul (4.8-10.8)
--- NOTE | 2024-09-13 08:17 | Hospitalist Progress Note ---
Date of Service September 13, 2024 Assessment & Plan (1) Admitted to intensive care unit: (2) Shock: (3) DKA (diabetic ketoacidosis): (4) ARF (acute renal failure): (5) Encephalopathy: (6) Metabolic acidosis: Plan Patient is a 63 yo female with a PMH of PAD, rectal mass on CT awaiting colonoscopy, DM1, diabetic foot ulcer complicated by osteomyelitis, HLD, peripheral neuropathy, hypothyroidism, & lower extremity edema who presented to [facility] on 08/28/24 after being found unresponsive by her family. She was brought to the ED where glucose was 1262 and she was noted to be in DKA with a pH of 6.92. Procalcitonin was elevated on admission. She was intubated for airway protection and initiated on Bicarb and Levophed. Broad spectrum antibiotics were initiated as infectious process could not be ruled out at the time of admission. 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 - cultures negative so far - However, x ray suggests some infiltrates, will start zosyn for suspected aspiration pna (09/09 - 09/16) #Acute renal failure - due to acute tubular necrosis - Now got a tunneled catheter, for HD - Renal function yet to recover - nephro on board, recs appreciated - CM working on outpatient HD chair #DKA with hyperglycemia - resolved - A1c: 8.7 - currently on lantus and sliding scale - continue to monitor #Elevated troponin - suspect demand and poor clearance in the setting of ARF - EKG unremarkable - bedside ECHO with adequate contractility of RV and LV #Metabolic encephalopathy - Resolved - CT head neg #Malnutrition - Prolonged NPO status - failed video swallow 09/11 - Nutritional services on board - will continue PPN for now - Unable to get PICC for TPN - PPN has a window of about 7-14 days maximum, after that, and patient still unable to swallow, she is open to PEG tube #Hematuria - Stacy draining pink urine - Hb stable - urology following peripherally #Deconditioning - PT/OT on board #Rectal mass - colonoscopy when pt is medically stable #PAD s/p right fem endarterectomy #Peripheral neuropathy #Hypothyroidism: on levothyroxine 100mcg at home, change to IV #HLD: rosuvastatin 40mg at home #Chronic lower extremity edema: lasix 40mg daily at home DVT ppx: hep subq , scds Admission and Anticipated Discharge Date Admission Date: August 28, 2024 Subjective No acute events overnight Currently no new complaints Review of Systems Review of Systems: Comprehensive ROS unremarkable Physical Exam Physical Exam: Gen: NAD HEENT: NC/AT, MMM, hoarse voice Lungs: CTAB CVS: s1s2 nl, RRR Abd: protuberant, nl bowel sounds Ext: edema significantly improved Neuro: awake, alert, communicating appropriately Results & Data Results & Data Vital Signs (Past 12 Hours) Vital Signs Temp Pulse Pulse Resp BP BP Pulse Ox 09/13/24 08:00 79 09/13/24 02:51 36.9 C 88 17 160/80 H 97 09/12/24 23:00 79 09/12/24 23:00 09/12/24 22:40 36.7 C 78 18 163/83 H 94 O2 Del Method 09/13/24 08:00 09/13/24 02:51 Room Air 09/12/24 23:00 09/12/24 23:00 Room Air 09/12/24 22:40 Room Air PG Care Time/CCT Total # of Minutes Spent Total Time Spent with Patient: Total time spent is greater than 50% in coordination of care (as documented) at patient's floor/unit and/or counseling patient: Coding Level of Care Code 23458 SUB INP/OBS CARE 2/35MIN Diagnoses Admitted to intensive care unit Z78.9 Shock R57.9 DKA (diabetic ketoacidosis) E13.11 Diabetes mellitus complication detail: with coma Diabetes mellitus type: other specified (including SHILPA) ARF (acute renal failure) N17.9 Encephalopathy G93.40 Metabolic acidosis E87.20 (3) DKA (diabetic ketoacidosis) Diabetes mellitus complication detail: with coma Diabetes mellitus type: other specified (including SHILPA) Qualified Code(s): E13.11 - Other specified diabetes mellitus with ketoacidosis with coma
[2024-09-13 08:29] LABS: Albumin Level 2.9 gm/dl (3.4-5.0); BUN Creatinine Ratio 13.2 (10-20); Calcium 8.4 mg/dl (8.6-10.3); Creatinine Clr Calc Pharmacy 16.6 ml/min; Phosphorus 4.2 mg/dl (2.5-4.9); Potassium 4.1 mmol/L (3.5-5.1)
--- NOTE | 2024-09-13 08:33 | Nephrology Progress Note ---
Date of Service September 13, 2024 Assessment & Plan (1) LIDIA (acute kidney injury): Plan: * LIDIA due to profound dehydration and hypotension related to DKA. Urine microscopy revealed granular casts consistent with ATN * Renal ultrasound was negative for obstruction * Temporary dialysis catheter placed on 09/01/24 has been removed. Started HD 09/01. TCC was placed 09/05/[address] Fitzgerald * Patient was last dialyzed 09/12/2024 for 1.6 L UF. No complications * UO 1700 cc last 24 hours * No acute indication for HD today. Volume status and electrolyte balance remain acceptable. Plan to monitor UO, BMP over weekend for signs of possible renal recovery (2) Hematuria: Plan: * Stacy continues draining slightly pink urine * Urology consult completed. Outpatient evaluation planned. No concerning lesions on CT. (3) Difficulty swallowing liquids: Plan: * Vocal cord dysfunction/dysphonia likely due to intubation * Video swallow demonstrated aspiration * Remains NPO on TPN * Primary service providing steroid and racemic epinephrine therapy per ENT recommendations. If patient fails to respond she may require PEG tube Admission and Anticipated Discharge Date Admission Date: August 28, 2024 Subjective Mrs. Sorenson was evaluated in her hospital room this morning. She was alert and oriented x 3, sitting up in bed. Her voice remains very raspy. She reports that she has not yet been about oral nutrition. She continues to receive nutrition via hyperalimentation. Review of Systems Constitutional: no fever Eyes: no problem reported Ear, Nose, Mouth, Throat: + change in voice and + dysphagia Respiratory: no cough and no dyspnea Cardiovascular: no chest pain Gastrointestinal: no abdominal pain, no nausea, no vomiting and no diarrhea/loose stools Genitourinary: + problem reported Musculoskeletal: no back pain Physical Exam Constitutional: not in distress Eyes: PERRL, conjunctivae normal, anicteric sclerae ENMT: external ear and nose normal, oropharynx normal Neck: trachea midline, no thyromegaly (R IJ TCC with clean dry dressing in place) Respiratory: normal respiratory effort, lungs clear to auscultation Cardiovascular: RRR, no murmur, no edema Gastrointestinal (Abdomen): normal bowel sounds, soft, nontender, no hepatosplenomegaly Musculoskeletal: Extremities: no cyanosis and no clubbing Skin: no rashes, warm and dry Neurologic: awake; not confused Results & Data Vital Signs (Past 12 Hours) Vital Signs Temp Pulse Pulse Resp BP BP Pulse Ox 09/13/24 08:11 36.3 C L 80 18 128/80 93 09/13/24 08:00 79 09/13/24 02:51 36.9 C 88 17 160/80 H 97 09/12/24 23:00 79 09/12/24 23:00 09/12/24 22:40 36.7 C 78 18 163/83 H 94 O2 Del Method 09/13/24 08:11 Room Air 09/13/24 08:00 09/13/24 02:51 Room Air 09/12/24 23:00 09/12/24 23:00 Room Air 09/12/24 22:40 Room Air Laboratory Results Abnormal Lab Results 09/12/24 09/12/24 09/12/24 12:18 16:17 19:53 WBC RBC Hgb Hct MCV MCH MCHC RDW Std Deviation RDW Coeff of Tressa Plt Count MPV Sodium Potassium Chloride Carbon Dioxide Anion Gap BUN Creatinine Est Cr Clr Drug Dosing eGFR BUN/Creatinine Ratio Glucose POC Glucose 109 H 94 137 H Calcium Phosphorus Magnesium Albumin 09/13/24 09/13/24 09/13/24 00:10 04:00 07:49 WBC RBC Hgb Hct MCV MCH MCHC RDW Std Deviation RDW Coeff of Tressa Plt Count MPV Sodium Potassium Chloride Carbon Dioxide Anion Gap BUN Creatinine Est Cr Clr Drug Dosing eGFR BUN/Creatinine Ratio Glucose POC Glucose 160 H 174 H 195 H Calcium Phosphorus Magnesium Albumin 09/13/24 07:50 WBC 21.33 H RBC 3.90 L Hgb 11.7 L Hct 33.9 L MCV 86.9 MCH 30.0 MCHC 34.5 RDW Std Deviation 42.0 RDW Coeff of Tressa 13.3 Plt Count 274 MPV 10.2 Sodium 137 Potassium 4.1 Chloride 103 Carbon Dioxide 23 Anion Gap 11 BUN 53 H Creatinine 4.01 H D Est Cr Clr Drug Dosing 16.6 eGFR 11.96 BUN/Creatinine Ratio 13.2 Glucose 207 H POC Glucose Calcium 8.4 L Phosphorus 4.2 Magnesium 2.0 Albumin 2.9 L PG Care Time/CCT Total # of Minutes Spent Total Time Spent with Patient: Total time spent is greater than 50% in coordination of care (as documented) at patient's floor/unit and/or counseling patient: Coding Level of Care Code 07399 SUB INP/OBS CARE 50MIN Diagnoses LIDIA (acute kidney injury) N17.9 Hematuria R31.9 Difficulty swallowing liquids R13.10
--- NOTE | 2024-09-13 14:11 | Communication Note ---
Date of Service: September 13, 2024 Consult received for possible PEG. Will assess tomorrow for potential procedure on Sunday if possible. Could consider evaluating her rectal mass at that time. Based on patient's stability for sedation and endoscopic procedures. Heparin would need to be on hold for 12 hours prior.
[2024-09-13] MEDS: PERIPHERAL TPN IV SCH (16:39)
[2024-09-13] MEDS: CLINOLIPID 20% IV FAT EMULSION 250 ML IV SCH (16:39)
[2024-09-13] MEDS: [UNRECOGNIZED DRUG - OTHER] IV SCH (16:39)
[2024-09-13] MEDS: methylPREDNISolone 40 MG in SYRINGE 0 ML IV SCH (16:40)
[2024-09-14 08:21] LABS: Basophils # (auto) 0.03 K/uL (0.00-0.20); Basophils % (auto) 0.2 %; Eosinophils # (auto) 0.02 K/uL (0.00-0.50); Eosinophils % (auto) 0.1 %; Hematocrit (blood only) 32.2 % (37.0-47.0); Hemoglobin 10.9 g/dl (12.0-16.0); Immature Granulocytes # (auto) 0.16 K/uL (0.01-0.20); Lymphocytes # (auto) 1.26 K/uL (1.20-3.40); Lymphocytes % (auto) 7.6 %; Mean Corpuscular Hemoglobin 29.4 pg (25.0-34.0); Mean Corpuscular Hgb Conc 33.9 g/dL (32.0-36.0); Mean Corpuscular Volume 86.8 fL (80.0-100.0); Mean Platelet Volume 10.2 fL (9.4-12.4); Monocytes # (auto) 1.04 K/uL (0.11-0.59); Monocytes % (auto) 6.3 %; Neutrophils # (auto) 14.06 K/uL (1.40-6.50); Neutrophils % (auto) 84.8 %; Platelet Count 231 K/uL (130-400); RDW Coefficient of Variation 13.4 % (11.5-14.5); RDW Standard Deviation 42.3 fL (36.4-46.3); Red Blood Count 3.71 M/uL (4.20-5.40); White Blood Count 16.57 K/ul (4.8-10.8)
--- NOTE | 2024-09-14 08:33 | Nephrology Progress Note ---
Date of Service September 14, 2024 Assessment & Plan (1) LIDIA (acute kidney injury): Plan: * LIDIA due to profound dehydration and hypotension related to DKA. Urine microscopy revealed granular casts consistent with ATN * Renal ultrasound was negative for obstruction * Temporary dialysis catheter placed on 09/01/24 has been removed. Started HD 09/01. TCC was placed 09/05/[address] Fitzgerald * Patient was last dialyzed 09/12/2024 for 1.6 L UF. No complications * UO 1060 cc last shift * No acute indication for PLASTICS FABRICATOR OR WELDER today. Will reassess in am * Serum creatinine continues to increase in between treatments. Patient remains within the injury phase of LIDIA. She will likely require dialysis tomorrow. Will need to try to coordinate with GI as they are planning for PEG placement (2) Hematuria: Plan: * Stacy continues draining slightly pink urine * Urology consult completed. Outpatient evaluation planned. No concerning lesions on CT. (3) Difficulty swallowing liquids: Plan: * Vocal cord dysfunction/dysphonia likely due to intubation * Video swallow demonstrated aspiration * Remains NPO on TPN * Primary service providing steroid and racemic epinephrine therapy per ENT recommendations. If patient fails to respond she may require PEG tube Admission and Anticipated Discharge Date Admission Date: August 28, 2024 Subjective Mrs. Sorenson was evaluated in her hospital room this morning. She continues to receive nutrition via hyperalimentation and reports that she is scheduled for PEG tube tomorrow Review of Systems Constitutional: no fever Eyes: no problem reported Ear, Nose, Mouth, Throat: + change in voice and + dysphagia Respiratory: no cough and no dyspnea Cardiovascular: no chest pain Gastrointestinal: no abdominal pain, no nausea, no vomiting and no diarr hea/loose stools Genitourinary: + problem reported Musculoskeletal: no back pain Physical Exam Constitutional: + ill appearing; not in distress Eyes: PERRL, conjunctivae normal, anicteric sclerae ENMT: external ear and nose normal, oropharynx normal Neck: trachea midline, no thyromegaly (R IJ TCC with clean dry dressing in place) Respiratory: normal respiratory effort, lungs clear to auscultation Cardiovascular: RRR, no murmur, no edema Rate/Rhythm: regular rate and regular rhythm Extremities: + edema (2+ dependent pitting edema) Gastrointestinal (Abdomen): normal bowel sounds, soft, nontender, no hepatosplenomegaly Inspection/Auscultation: + hypoactive bowel sounds Percussion/Palpation: abdomen soft Musculoskeletal: Extremities: no cyanosis and no clubbing Skin: no rashes, warm and dry Neurologic: awake; not confused Results & Data Vital Signs (Past 12 Hours) Vital Signs Temp Pulse Pulse Pulse Resp BP Pulse Ox 09/14/24 07:11 36.4 C L 76 17 153/86 H 95 09/14/24 02:52 36.6 C 78 19 136/66 97 09/13/24 23:00 84 09/13/24 22:53 36.8 C 77 19 122/79 97 09/13/24 22:30 O2 Del Method 09/14/24 07:11 Room Air 09/14/24 02:52 Room Air 09/13/24 23:00 09/13/24 22:53 Room Air 09/13/24 22:30 Room Air Laboratory Results Laboratory Results - last 24 hr 09/13/24 09/13/24 09/13/24 11:49 14:14 16:30 WBC RBC Hgb Hct MCV MCH MCHC RDW Std Deviation RDW Coeff of Tressa Plt Count MPV Immature Gran % (Auto) Neut % (Auto) Lymph % (Auto) [place] % (Auto) Eos % (Auto) Baso % (Auto) Neut # (Auto) Lymph # (Auto) [place] # (Auto) Eos # (Auto) Baso # (Auto) Immature Gran # (Auto) PT INR Sodium Potassium Chloride Carbon Dioxide Anion Gap BUN Creatinine Est Cr Clr Drug Dosing eGFR BUN/Creatinine Ratio Glucose POC Glucose 252 H 197 H 188 H Fasting Glucose Calcium Phosphorus Magnesium 09/13/24 09/14/24 09/14/24 20:05 00:02 03:50 WBC RBC Hgb Hct MCV MCH MCHC RDW Std Deviation RDW Coeff of Tressa Plt Count MPV Immature Gran % (Auto) Neut % (Auto) Lymph % (Auto) [place] % (Auto) Eos % (Auto) Baso % (Auto) Neut # (Auto) Lymph # (Auto) [place] # (Auto) Eos # (Auto) Baso # (Auto) Immature Gran # (Auto) PT INR Sodium Potassium Chloride Carbon Dioxide Anion Gap BUN Creatinine Est Cr Clr Drug Dosing eGFR BUN/Creatinine Ratio Glucose POC Glucose 170 H 187 H 121 H Fasting Glucose Calcium Phosphorus Magnesium 09/14/24 09/14/24 07:12 08:00 WBC 16.57 H RBC 3.71 L Hgb 10.9 L Hct 32.2 L MCV 86.8 MCH 29.4 MCHC 33.9 RDW Std Deviation 42.3 RDW Coeff of Tressa 13.4 Plt Count 231 MPV 10.2 Immature Gran % (Auto) 1.0 Neut % (Auto) 84.8 Lymph % (Auto) 7.6 [place] % (Auto) 6.3 Eos % (Auto) 0.1 Baso % (Auto) 0.2 Neut # (Auto) 14.06 H Lymph # (Auto) 1.26 [place] # (Auto) 1.04 H Eos # (Auto) 0.02 Baso # (Auto) 0.03 Immature Gran # (Auto) 0.16 PT 10.9 INR 1.0 Sodium 138 Potassium 3.9 Chloride 105 Carbon Dioxide 25 Anion Gap 8 BUN 71 H Creatinine 4.50 H D Est Cr Clr Drug Dosing 14.8 eGFR 10.41 BUN/Creatinine Ratio 15.8 Glucose 136 H POC Glucose 115 H Fasting Glucose 136 H Calcium 8.3 L Phosphorus 4.5 Magnesium 2.1 PG Care Time/CCT Total # of Minutes Spent Total Time Spent with Patient: Total time spent is greater than 50% in coordination of care (as documented) at patient's floor/unit and/or counseling patient: Coding Level of Care Code 10690 SUB INP/OBS CARE 3/50MIN Diagnoses LIDIA (acute kidney injury) N17.9 Hematuria R31.9 Difficulty swallowing liquids R13.10
[2024-09-14 08:39] LABS: BUN Creatinine Ratio 15.8 (10-20); Calcium 8.3 mg/dl (8.6-10.3); Creatinine Clr Calc Pharmacy 14.8 ml/min; Magnesium 2.1 mg/dl (1.7-2.4); Phosphorus 4.5 mg/dl (2.5-4.9); Potassium 3.9 mmol/L (3.5-5.1)
[2024-09-14 08:46] LABS: Prothrombin Time 10.9 Seconds (9.0-12.0)
[2024-09-14] MEDS: LANTUS PER UNIT CHARGE SC SCH (09:15)
--- NOTE | 2024-09-14 09:15 | Gastrointestinal Consultation ---
Date of Consultation September 14, 2024 Assessment & Plan (1) Difficulty swallowing liquids: No specific contraindications to PEG at this time. Reviewed risks and benefits with the patient which can include infection peritonitis bleeding bowel perforation splenic injury. Patient agreeable to proceed. (2) Dysphagia: (3) Nutritional deficiency: (4) Mass in rectum: Patient has questionable mass in the rectum noted on pelvic CT scan. Workup had been deferred based on medical instability. Perform flexible sigmoidoscopy after PEG placement. Same sedation. History of Present Illness Reason for Consultation: Vocal cord paralysis. Aspiration risk. For PEG placement. Attending Physician: Amy Schneider MD History of Present Illness Prolonged hospitalization. Patient currently is on dialysis. However there has been feeding issues. She is failed a videofluoroscopy swallow study. Currently receiving TPN which is not ideal in patients in general long-term but especially so in patients who are on dialysis in regards to fluid and electrolyte maintenance. PEG placement is requested. Patient is getting heparin which we will need to hold for 12 hours prior to the procedure. Her abdomen shows a fairly large hysterectomy scar extending above the umbilicus but not involving the left upper quadrant. Abdomen is soft and benign. She does have some dysphonia related to vocal cord dysfunction. Though is tolerating room air with good saturations. Lungs CTAB Review of previous notes suggest a rectal mass workup was deferred based on severity of her medical condition and medical instability. Suggest we do a Fleet enema to evaluate the rectum at time of PEG placement. Allergies Allergy/AdvReac Type Severity Reaction Status Date / Time tetanus toxoid, adsorbed AdvReac Intermediate SWELLING Verified 08/15/24 13:04 AT SITE AND REDNESS Home Medications Medication Instructions Recorded Confirmed Type blood sugar diagnostic (OneTouch 09/04/22 08/28/24 History Ultra Test strips) blood-glucose meter (OneTouch 09/04/22 08/28/24 History Ultra2 Meter) blood-glucose meter,continuous #1 ea 02/26/23 08/28/24 Rx (Dexcom G7 Secondary History Teacher) pen needle, diabetic 32 gauge x #100 ea 02/26/23 08/28/24 Rx 5/16" (Comfort EZ Pen [place]) ibuprofen 200 mg tablet (Advil) 600 mg (3 x 200 mg) PO QID PRN 08/30/23 08/28/24 Rx fever or pain #30 tabs insulin syringe-needle U-100 0.3 #300 ea 02/08/24 08/28/24 Rx mL 31 gauge x 5/16" (BD Insulin Syringe Ultra-Fine) blood-glucose sensor (Dexcom G7 #9 ea 02/14/24 08/28/24 Rx Sensor device) furosemide 40 mg tablet (Lasix) 40 mg PO QAM 06/03/24 08/28/24 History glucagon 3 mg/actuation nasal spray 3 mg intranasal ONCE PRN 06/03/24 08/28/24 History Hypoglycemia oxycodone-acetaminophen 5 mg-325 1 - 2 tab PO Q6H PRN pain #20 tabs 06/06/24 08/28/24 Rx mg tablet (Percocet) insulin glargine 100 unit/mL (3 15 unit (0.15 mL) subcut BID #30 mL 07/23/24 08/28/24 Rx mL) subcutaneous pen (Lantus Solostar U-100 Insulin) levothyroxine 100 mcg tablet 100 mcg PO QAM #90 tabs 07/23/24 08/28/24 Rx rosuvastatin 40 mg tablet 40 mg PO QAM 07/31/24 08/28/24 History insulin aspart U-100 100 unit/mL See Rx Instructions .Route .COMPLEX 08/28/24 08/28/24 History subcutaneous solution Patient History Medical History Post op infection is using a silver coated strip for surgical site infection from the femoral endarterectomy. following with Dr. Fitzgerald's office. Rectal mass found in CT end of June 2024 - reason for upcoming procedure Hx of hypotension (01/2024) Hx of fall (02/04/24) no major injuries Dental caries pt. reports decayed teeth, needs dentures, not loose Sleep-disordered breathing denies sleep study- sister told pt. 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 dickerson - states his PA did not hear a cardiac murmur (05/14/24) Sensory neuropathy feet 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) hx-right foot Lower extremity edema hx - swelling has been much better since starting lasix Shoulder pain left, r/t arthritis Peripheral arterial disease Hx of angiography 06/2023, [facility], bilateral and abdominal aortogram Hyperlipidemia Hypothyroidism Surgical History History of endarterectomy (05/2024) right femoral endarterectomy History of cholecystectomy (1988) during hyster History of appendectomy (1988) during hyster History of tooth extraction History of cataract surgery (02/2024) rt/left History of partial amputation of toe of right foot (07/2023) pt. reports clipping toe nails and accidentally removing entire toe nail, which lead to infection History of carpal tunnel release (08/2023) left Hx of colonoscopy History of tonsillectomy and adenoidectomy (1972) initial sx age 2, revision age 12 Hx of total hysterectomy with removal of both tubes and ovaries at age 28, also removed gallbladder and appendix at same time Family History Mother Myocardial infarction Other No family history of adverse response to anesthesia Denies family history of Ovarian cancer Prostate cancer Breast cancer Colorectal cancer Social History Smoking Status: Never smoker Second Hand Exposure: Yes; Do You Dip or Chew Tobacco: No; Hx Alcohol Use: Yes Alcohol type: beer Alcohol Intake Frequency: Monthly or Less Hx Substance Use: No Preferred Language: Ugandan Communication Ability: Impaired Visual Impairment: No Limitations Hearing Ability: Normal Direct Support Professional Home Health Required: No Beliefs That Will Affect Care: None marital status: Single Current Living Situation: Family Current Living Situation Comment: lives with sister's family current occupational status: retired Feels Safe at Home: Yes Childhood Exposure to Second-Hand Smoke: Yes Diet: low carbohydrate caffeine: Yes during the past year weight has: remained stable Dental Care, Regularly: No Physical Activity Frequency: 5-6 Times per Week Seatbelt Use: always Sunscreen Use: No Assistive Devices: None Review of Systems Review of Systems: Patient denies any chest pain or shortness of breath at present. Denies any abdominal pain. Review of systems otherwise Physical Exam Physical Exam: Pleasant 63-year-old female does not appear in any acute distress. Watching TV. Alert and answers questions appropriately. The eyes feel no jaundice Chest CTAB Heart sounds no S3-S4 Abdomen benign. Large midline surgical scar extending from the symphysis pubis to just above the bellybutton. Left upper quadrant not involved in the scar. TAX SPECIALIST no focal neurological changes Psych affect was normal Exam otherwise negative Results & Data Vital Signs (Past 12 Hours) Vital Signs Temp Pulse Pulse Pulse Resp BP Pulse Ox 09/14/24 07:11 36.4 C L 76 17 153/86 H 95 09/14/24 02:52 36.6 C 78 19 136/66 97 09/13/24 23:00 84 09/13/24 22:53 36.8 C 77 19 122/79 97 09/13/24 22:30 O2 Del Method 09/14/24 07:11 Room Air 09/14/24 02:52 Room Air 09/13/24 23:00 09/13/24 22:53 Room Air 09/13/24 22:30 Room Air Laboratory Results Elevated white count, normal platelets, normal INR Diagnostic Findings Abnormal rectal and pelvic CT in June. Failed videofluoroscopy PG Care Time/CCT Total # of Minutes Spent Total Time Spent with Patient: Total time spent is greater than 50% in coordination of care (as documented) at patient's floor/unit and/or counseling patient: Coding Level of Care Code 22584 Inpt Consult Level 1 Diagnoses Difficulty swallowing liquids R13.10 Oropharyngeal dysphagia R13.12 Dysphagia type: oropharyngeal phase Nutritional deficiency E63.9 Mass in rectum K62.89 (2) Dysphagia Dysphagia type: oropharyngeal phase Qualified Code(s): R13.12 - Dysphagia, oropharyngeal phase
--- NOTE | 2024-09-14 15:11 | Hospitalist Progress Note ---
Date of Service September 14, 2024 Assessment & Plan (1) Admitted to intensive care unit: (2) Shock: (3) DKA (diabetic ketoacidosis): (4) ARF (acute renal failure): (5) Encephalopathy: (6) Metabolic acidosis: Plan Patient is a 63 yo female with a PMH of PAD, rectal mass on CT awaiting colonoscopy, DM1, diabetic foot ulcer complicated by osteomyelitis, HLD, peripheral neuropathy, hypothyroidism, & lower extremity edema who presented to [facility] on 08/28/24 after being found unresponsive by her family. She was brought to the ED where glucose was 1262 and she was noted to be in DKA with a pH of 6.92. Procalcitonin was elevated on admission. She was intubated for airway protection and initiated on Bicarb and Levophed. Broad spectrum antibiotics were initiated as infectious process could not be ruled out at the time of admission. Now with worsening renal function and in need of HD #Vocal cord malfunction/dysphonia - likely from intubation - ENT was on board recommended steroids, pt's symptoms improved with steroids and racemic epinephrine - currently on solumedrol 40 IV q8h, titrate down to q12h - pt currently on PPN due to inability to insert PICC for TPN - pt failed repeat video swallow on 09/11, final GRAIN ORIGINATION SPECIALIST recs appreciated - pt understands PEG is needed and she is agreeable - cont glycopyrrolate to help with secretions - GI on board, plan for PEG on 09/15/24, last dose of hep subq is on 09/14 at 9p #Leucocytosis - Most likely from steroids - wbc was normal prior to starting steroids #Shock - Resolved #Hypoxic resp failure - Resolved - Now extubated - Saturating well on room air - completed a course of cefazolin for suspected PNA. - cultures negative so far - However, x ray suggests some infiltrates, on zosyn for suspected aspiration pna (09/09 - 09/16) #Acute renal failure - due to acute tubular necrosis - Now got a tunneled catheter, for HD - Renal function yet to recover - nephro on board, recs appreciated - CM working on outpatient HD chair #DKA with hyperglycemia - resolved - A1c: 8.7 - currently on lantus and sliding scale - continue to monitor #Elevated troponin - suspect demand and poor clearance in the setting of ARF - EKG unremarkable - bedside ECHO with adequate contractility of RV and LV #Metabolic encephalopathy - Resolved - CT head neg #Malnutrition - Prolonged NPO status - failed video swallow 09/11 - Nutritional services on board - will continue PPN for now - Unable to get PICC for TPN - PPN has a window of about 7-14 days maximum, after that, and patient still unable to swallow, she is open to PEG tube - pt will need to be evaluated for tube feeds once PEG is in place #Hematuria - Stacy draining pink urine - Hb stable - urology following peripherally #Deconditioning - PT/OT on board #Rectal mass - colonoscopy when pt is medically stable #PAD s/p right fem endarterectomy #Peripheral neuropathy #Hypothyroidism: on levothyroxine 100mcg at home, change to IV #HLD: rosuvastatin 40mg at home #Chronic lower extremity edema: lasix 40mg daily at home DVT ppx: hep subq , scds Admission and Anticipated Discharge Date Admission Date: August 28, 2024 Subjective No acute events overnight Currently no new complaints Review of Systems Review of Systems: Comprehensive ROS unremarkable Physical Exam Physical Exam: Gen: NAD HEENT: NC/AT, MMM, hoarse voice Lungs: CTAB CVS: s1s2 nl, RRR Abd: protuberant, nl bowel sounds Ext: edema significantly improved Neuro: awake, alert, communicating appropriately Results & Data Results & Data Vital Signs (Past 12 Hours) Vital Signs Temp Pulse Pulse Resp BP Pulse Ox O2 Del Method 09/14/24 13:51 78 09/14/24 10:56 77 19 145/86 H 94 Room Air 09/14/24 08:00 84 09/14/24 08:00 Room Air 09/14/24 07:11 36.4 C L 76 17 153/86 H 95 Room Air PG Care Time/CCT Total # of Minutes Spent Total Time Spent with Patient: Total time spent is greater than 50% in coordination of care (as documented) at patient's floor/unit and/or counseling patient: Coding Level of Care Code 16884 SUB INP/OBS CARE 2/35MIN Diagnoses Admitted to intensive care unit Z78.9 Shock R57.9 DKA (diabetic ketoacidosis) E13.11 Diabetes mellitus complication detail: with coma Diabetes mellitus type: other specified (including SHILPA) ARF (acute renal failure) N17.9 Encephalopathy G93.40 Metabolic acidosis E87.20 (3) DKA (diabetic ketoacidosis) Diabetes mellitus complication detail: with coma Diabetes mellitus type: other specified (including SHILPA) Qualified Code(s): E13.11 - Other specified diabetes mellitus with ketoacidosis with coma
[2024-09-14] MEDS: CLINOLIPID 20% IV FAT EMULSION 250 ML IV SCH (16:04)
[2024-09-14] MEDS: PERIPHERAL TPN IV SCH (16:06)
[2024-09-14] MEDS: [UNRECOGNIZED DRUG - OTHER] IV SCH (16:06)
[2024-09-15 08:01] LABS: Hematocrit (blood only) 31.2 % (37.0-47.0); Hemoglobin 10.6 g/dl (12.0-16.0); Mean Corpuscular Hemoglobin 29.2 pg (25.0-34.0); Mean Platelet Volume 10.3 fL (9.4-12.4); Platelet Count 220 K/uL (130-400); RDW Coefficient of Variation 13.4 % (11.5-14.5); RDW Standard Deviation 41.7 fL (36.4-46.3); Red Blood Count 3.63 M/uL (4.20-5.40); White Blood Count 14.35 K/ul (4.8-10.8)
[2024-09-15 08:15] LABS: BUN Creatinine Ratio 16.3 (10-20); Calcium 8.4 mg/dl (8.6-10.3); Creatinine Clr Calc Pharmacy 13.1 ml/min; Magnesium 2.2 mg/dl (1.7-2.4); Phosphorus 4.6 mg/dl (2.5-4.9); Potassium 3.9 mmol/L (3.5-5.1)
--- NOTE | 2024-09-15 08:35 | Nephrology Progress Note ---
Date of Service September 15, 2024 Assessment & Plan (1) LIDIA (acute kidney injury): Plan: * LIDIA due to profound dehydration and hypotension related to DKA. Urine microscopy revealed granular casts consistent with ATN * Renal ultrasound was negative for obstruction * Temporary dialysis catheter placed on 09/01/24 has been removed. Started HD 09/01. TCC was placed 09/05/[address] Fitzgerald * Patient was last dialyzed 09/12/2024 for 1.6 L UF. No complications * UO 1650 cc last shift * Serum creatinine continues to increase in between treatments. Patient remains within the injury phase of LIDIA. Will provide HD this morning prior to PEG placement. HD RN notified and orders have been entered into EMR (2) Hematuria: Plan: * Stacy continues draining slightly pink urine * Urology consult completed. Outpatient evaluation planned. No concerning lesions on CT. (3) Difficulty swallowing liquids: Plan: * Vocal cord dysfunction/dysphonia likely due to intubation * Video swallow demonstrated aspiration * Remains NPO on TPN * Patient is scheduled for PEG tube placement this afternoon Admission and Anticipated Discharge Date Admission Date: August 28, 2024 Subjective Mrs. Sorenson was evaluated in her hospital room this morning. She continues to receive nutrition via hyperalimentation and reports that she is scheduled for PEG tube this afternoon. Voice is improved. Review of Systems Constitutional: no fever Eyes: no problem reported Ear, Nose, Mouth, Throat: + dysphagia Respiratory: no cough and no dyspnea Cardiovascular: no chest pain Gastrointestinal: no abdominal pain, no nausea, no vomiting and no diarrhea/loose stools Genitourinary: + problem reported Musculoskeletal: no back pain Physical Exam Constitutional: + ill appearing; not in distress Eyes: PERRL, conjunctivae normal, anicteric sclerae ENMT: external ear and nose normal, oropharynx normal Neck: trachea midline, no thyromegaly (R IJ TCC with clean dry dressing in place) Respiratory: normal respiratory effort, lungs clear to auscultation Cardiovascular: RRR, no murmur, no edema Rate/Rhythm: regular rate and regular rhythm Extremities: + edema (2+ dependent pitting edema) Gastrointestinal (Abdomen): normal bowel sounds, soft, nontender, no hepatosplenomegaly Inspection/Auscultation: normal bowel sounds Percussion/Palpation: abdomen soft Musculoskeletal: Extremities: no cyanosis and no clubbing Skin: no rashes, warm and dry Neurologic: awake; not confused Results & Data Vital Signs (Past 12 Hours) Vital Signs Temp Pulse Pulse Pulse Resp BP Pulse Ox 09/15/24 08:21 09/15/24 07:04 36.4 C L 72 18 114/72 93 09/15/24 03:22 36.8 C 80 18 126/86 98 09/15/24 00:00 86 09/14/24 23:23 36.6 C 85 16 140/33 L 97 O2 Del Method 09/15/24 08:21 Room Air 09/15/24 07:04 Room Air 09/15/24 03:22 Room Air 09/15/24 00:00 09/14/24 23:23 Room Air Laboratory Results Laboratory Results - last 24 hr 09/14/24 09/14/24 09/14/24 08:00 11:21 16:03 WBC RBC Hgb Hct MCV MCH MCHC RDW Std Deviation RDW Coeff of Tressa Plt Count MPV PT 10.9 INR 1.0 Sodium 138 Potassium 3.9 Chloride 105 Carbon Dioxide 25 Anion Gap 8 BUN 71 H Creatinine 4.50 H D Est Cr Clr Drug Dosing 14.8 eGFR 10.41 BUN/Creatinine Ratio 15.8 Glucose 136 H POC Glucose 172 H 146 H Fasting Glucose 136 H Calcium 8.3 L Phosphorus 4.5 Magnesium 2.1 09/14/24 09/15/24 09/15/24 20:00 00:03 00:04 WBC RBC Hgb Hct MCV MCH MCHC RDW Std Deviation RDW Coeff of Tressa Plt Count MPV PT INR Sodium Potassium Chloride Carbon Dioxide Anion Gap BUN Creatinine Est Cr Clr Drug Dosing eGFR BUN/Creatinine Ratio Glucose POC Glucose 177 H 212 H 198 H Fasting Glucose Calcium Phosphorus Magnesium 09/15/24 09/15/24 09/15/24 03:58 07:36 08:01 WBC 14.35 H RBC 3.63 L Hgb 10.6 L Hct 31.2 L MCV 86.0 MCH 29.2 MCHC 34.0 RDW Std Deviation 41.7 RDW Coeff of Tressa 13.4 Plt Count 220 MPV 10.3 PT INR Sodium 139 Potassium 3.9 Chloride 107 Carbon Dioxide 23 Anion Gap 9 BUN 83 H Creatinine 5.08 H* D Est Cr Clr Drug Dosing 13.1 eGFR 9.00 BUN/Creatinine Ratio 16.3 Glucose 136 H POC Glucose 141 H 139 H Fasting Glucose Calcium 8.4 L Phosphorus 4.6 Magnesium 2.2 PG Care Time/CCT Total # of Minutes Spent Total Time Spent with Patient: Total time spent is greater than 50% in coordination of care (as documented) at patient's floor/unit and/or counseling patient: Coding Level of Care Code 97395 SUB INP/OBS CARE 3/50MIN Diagnoses LIDIA (acute kidney injury) N17.9 Hematuria R31.9 Difficulty swallowing liquids R13.10
--- NOTE | 2024-09-15 09:15 | Pharmacy Report ---
Pharmacy Glycemic Short Note 2 - Date of Service September 15, 2024 - Glycemic Short BSG Results (Last 24 hours): 09/14/24 09/14/24 09/14/24 11:21 16:03 20:00 Glucose POC Glucose 172 H 146 H 177 H 09/15/24 09/15/24 09/15/24 00:03 00:04 03:58 Glucose POC Glucose 212 H 198 H 141 H 09/15/24 09/15/24 07:36 08:01 Glucose 136 H POC Glucose 139 H OUTPATIENT ANTIDIABETIC REGIMEN: * Lantus 15 units SC BID * Novolog 8 units SC AC * A1c = 8.7% (08/28/24) ASSESSMENT: 09/15/24: * Blood sugars reasonably controlled over past 48 hours * Patient has been receiving PPN for 10 days, failed PICC placement. PEG placement scheduled for today. * PPN to be held after currently infusing bag finishes. * Remains on methylprednisolone 40 mg IV q12h 09/12 * Tania received 56 units of insulin yesterday (30 were basal) * Fasting BSG this AM elevated, will increase basal insulin by at least 15% allowing for extra if BSGs still elevated * No changes to NovoLog at this time, consider tightening carbohydrate ratio if BSGs remain elevated 09/10: * Received 39 units of insulin yesterday, 27 of which were basal. BSGs were: [phone] mg/dL. * Fasting BSG increased to 207 mg/dL this AM. May be due to steroids. Remains on SoluMedrol 40 mg IV every 8 hours. Will increase basal scale by ~20% today. * Continues on Zosyn and PPN. To undergo another HD session today. Plan is to have PICC line placed this afternoon and possibly start TPN tomorrow. Currently covering for dextrose in PN bag with Novolog. 09/09: * Tania received 25 units of insulin yeserday, 17 of which were basal. BSGs we re: [phone] mg/dL. This has been about average for the patient since starting on PPN. Did receive HD yesterday. * Fasting BSG improved to 158 mg/dL this AM. No plans for HD today. Remains on 2 4 hour PPN that contains 60 total g of Dextrose. * Patient also started on Zosyn for pulmonary source today as well as SoluMedrol 40 mg IV every 8 hours. Suspect this will increase her BSGs throughout the evening. * Received previous basal dose of 7 units this AM. Will add 8 units x 1 at lunch given addition of steroids. This matches the patients home dose of 15 units in the AM. Will start a scaled basal dose this evening to provide a max of 15 units BID which is what the patient takes at home. Tightened CF this AM as well. Added a carb ratio of 5 when steroids were started. Instructed RN that PPN will provide 10 g of carbs/dextrose every 4 hours so patient should receive at minimum, 2 units of bolus insulin every 4 hours (does not include correctional dose for BSGs above goal). 09/05: * Pts BSGs have been mostly in goal since yesterday; 111 this morning and 145 at lunch * Pt continues to be in NPO status and was not given her Lantus dose this morning possibly because of going to the OR for cath placement * Pt also starting PPN today d/t NPO status/inability for using tube feeds. * Will keep NovoLog parameters unchanged and continue same Lantus dosing in addition to one time 5 unit dose at lunch to make up for the one she missed this morning. 09/03: * Type 1 diabetic admitted for severe DKA due to ~3 day h/o NV and abdominal pain with omission of insulin, hypotension requiring pressors, severe LIDIA and resp failure requiring intubation. * Severe LIDIA persists, now receiving USER EXPERIENCE DESIGNER in the form of intermittent HD (performed 09/01 and 09/02) * Patient was extubated this AM, tube feeds have been discontinued. * Patient will be at risk for hypoglycemia in setting of no IV or enteral carb provision. May need to consider addition of IV dextrose provision to permit ongoing basal insulin administration to type 1 diabetic. Will scale back basal insulin doses, continue to admin BID to allow for greater flexibility to hold a dose if needed. PLAN FOR INPATIENT GLYCEMIC CONTROL: * Basal insulin * Lantus 10 units SC daily * Lantus 5-10-15 units SC HS (see EHR for details) * Bolus insulin * NovoLog per scale Q4hrs * Goal Range: Low 110 mg/dL - High 150 mg/dL * Correction Factor: 15 mg/dL/unit * Nutritional / Prandial insulin per carb ratio of 1 unit per 5 grams CHO consumed
--- NOTE | 2024-09-15 14:35 | Anesthesiology Consultation ---
Date of Service September 15, 2024 Assessment & Plan Chart Review Chart Review: Acceptable Risk for Surgery Consults Requested none History Surgery Operation Date: 09/05/24 09:55 Proposed Procedures p Insertion Perm Catheter - Gavino Fitzgerald MD Operation Date: 09/15/24 17:00 Proposed Procedures p Colonoscopy and EGD with Gastric Tube Placement Dr. Tito Francis MD Height/Weight Height: 5 ft 7 in Weight: 90.8 kg Allergies Allergy/AdvReac Type Severity Reaction Status Date / Time tetanus toxoid, adsorbed AdvReac Intermediate SWELLING Verified 08/15/24 13:04 AT SITE AND REDNESS Medications Home Medications Medication Instructions Recorded Confirmed Last Taken blood sugar diagnostic (OneTouch 09/04/22 08/28/24 08/29/23 Ultra Test strips) blood-glucose meter (OneTouch 09/04/22 08/28/24 08/29/23 Ultra2 Meter) blood-glucose meter,continuous #1 ea 02/26/23 08/28/24 08/29/23 (Dexcom G7 [place] Operator) pen needle, diabetic 32 gauge x #100 ea 02/26/23 08/28/24 08/29/23 5/16" (Comfort EZ Pen [place]) ibuprofen 200 mg tablet (Advil) 600 mg (3 x 200 mg) PO QID PRN 08/30/23 08/28/24 Unknown fever or pain #30 tabs insulin syringe-needle U-100 0.3 #300 ea 02/08/24 08/28/24 Unknown mL 31 gauge x 5/16" (BD Insulin Syringe Ultra-Fine) blood-glucose sensor (Dexcom G7 #9 ea 02/14/24 08/28/24 Unknown Sensor device) furosemide 40 mg tablet (Lasix) 40 mg PO QAM 06/03/24 08/28/24 06/03/24 07:00 glucagon 3 mg/actuation nasal spray 3 mg intranasal ONCE PRN 06/03/24 08/28/24 Unknown Hypoglycemia oxycodone-acetaminophen 5 mg-325 1 - 2 tab PO Q6H PRN pain #20 tabs 06/06/24 08/28/24 Unknown mg tablet (Percocet) insulin glargine 100 unit/mL (3 15 unit (0.15 mL) subcut BID #30 mL 07/23/24 08/28/24 Unknown mL) subcutaneous pen (Lantus Solostar U-100 Insulin) levothyroxine 100 mcg tablet 100 mcg PO QAM #90 tabs 07/23/24 08/28/24 Unknown rosuvastatin 40 mg tablet 40 mg PO QAM 07/31/24 08/28/24 Unknown insulin aspart U-100 100 unit/mL See Rx Instructions .Route .COMPLEX 08/28/24 08/28/24 Unknown subcutaneous solution Active Medications Generic Name Dose Route Start Last Admin Trade Name Freq PRN Reason Stop Dose Admin Albuterol 3 ml 08/28/24 22:10 09/04/24 08:28 Albut/Ipratrop 3mg/0.5mg Neb 3 Ml Vial NEB 09/27/24 22:09 3 ml Q2H PRN Administration dyspnea Protocol Bisacodyl 10 mg 09/12/24 21:52 09/13/24 05:35 Bisacodyl 10 Mg Supp [place] 10/12/24 21:51 10 mg DAILY PRN Administration Constipation Docusate Sodium 100 mg 09/01/24 10:00 09/15/24 07:39 Docusate Sodium Syrup 100 Mg/10 Ml Udc PO 10/01/24 09:59 Not Given BID KELLY Glycopyrrolate 1 mg 09/11/24 11:30 09/15/24 07:39 Glycopyrrolate 1 Mg Tab PO 10/11/24 11:29 Not Given DAILY KELLY Heparin Sodium (Porcine) 5,000 units 09/04/24 09:00 09/14/24 20:10 Heparin Sod 5,000 Unit/0.5 Ml Vial SQ 10/04/24 08:59 5,000 units Q12H KELLY Administration Piperacillin Sod/Tazobactam Sod 4.5 gm in 100 mls @ 25 mls/hr 09/09/24 18:00 09/15/24 10:10 Zosyn IV 09/16/24 17:59 Infused Q12H KELLY Infusion Protocol Levothyroxine Sodium 75 mcg/ 3.75 mls @ 2 mls/min 09/10/24 11:00 09/13/24 10:19 Syringe IV 10/10/24 10:59 Not Given Q72H KELLY Methylprednisolone 40 mg/ 0.64 mls @ 1.5 mls/min 09/13/24 16:00 09/15/24 04:32 Syringe IV 10/13/24 15:59 1.5 mls/min Q12H KELLY Administration Amino Acids 1,278.2 ml/ 1,278.2 mls @ 53.5 mls/hr 09/14/24 16:00 09/14/24 16:06 Nutrition (Parenteral) IV 09/15/24 15:52 53.5 mls/hr .[id number] KELLY Administration Protocol Insulin Aspart 0 units 09/06/24 12:00 09/15/24 13:15 Insulin Aspart Per Unit Charge SC 10/06/24 11:59 Not Given Q4 KELLY Lansoprazole 30 mg 09/05/24 09:30 09/15/24 07:39 Lansoprazole 30 Mg Soltab PO 10/05/24 09:29 Not Given DAILY KELLY Levothyroxine Sodium 100 mcg 09/05/24 09:30 09/10/24 05:58 Levothyroxine Sodium 100 Mcg Tablet PO 10/05/24 09:29 Not Given DAILYBB KELLY Miscellaneous 1 each 09/15/24 07:00 09/15/24 11:49 No Heparin In Dialysis N/A 09/15/24 20:00 Not Given TODAY@0700 KELLY NPO Date Last Intake of Fluids: 09/04/24 Time Last Intake of Fluids: 20:00 Date Last Intake of Solids: 09/04/24 Time Last Intake of Solids: 13:00 Past Medical History Medical History Post op infection is using a silver coated strip for surgical site infection from the femoral endarterectomy. following with Dr. Fitzgerald's office. Rectal mass found in CT end of June 2024 - reason for upcoming procedure Hx of hypotension (01/2024) Hx of fall (02/04/24) no major injuries Dental caries pt. reports decayed teeth, needs dentures, not loose Sleep-disordered breathing denies sleep study- sister told pt. 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 dickerson - states his PA did not hear a cardiac murmur (05/14/24) Sensory neuropathy feet 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) hx-right foot Lower extremity edema hx - swelling has been much better since starting lasix Shoulder pain left, r/t arthritis Peripheral arterial disease Hx of angiography 06/2023, [facility], bilateral and abdominal aortogram Hyperlipidemia Hypothyroidism Past Family History Family History Mother Myocardial infarction Other No family history of adverse response to anesthesia Denies family history of Ovarian cancer Prostate cancer Breast cancer Colorectal cancer Past Surgical History Surgical History History of endarterectomy (05/2024) right femoral endarterectomy History of cholecystectomy (1988) during hyster History of appendectomy (1988) during hyster History of tooth extraction History of cataract surgery (02/2024) rt/left History of partial amputation of toe of right foot (07/2023) pt. reports clipping toe nails and accidentally removing entire toe nail, which lead to infection History of carpal tunnel release (08/2023) left Hx of colonoscopy History of tonsillectomy and adenoidectomy (1972) initial sx age 2, revision age 12 Hx of total hysterectomy with removal of both tubes and ovaries at age 28, also removed gallbladder and appendix at same time Social History Smoking Status: Never smoker Do You Dip or Chew Tobacco: No Hx Alcohol Use: Yes Alcohol type: beer alcohol intake frequency: a few times a month Hx Substance Use: No substance use type: does not use Physical Exam Vital Signs Last Vital Signs Temp 36.4 C L 09/15/24 12:40 Pulse 76 09/15/24 12:40 Resp 18 09/15/24 07:04 BP 156/88 H 09/15/24 12:40 Pulse Ox 93 09/15/24 07:04 O2 Del Method Room Air 09/15/24 08:21 O2 Flow Rate 2 09/09/24 07:39 FiO2 30 09/03/24 09:17 Testing Laboratory Results 09/15/24 07:36 09/15/24 07:36 PT 10.9 Seconds (9.0-12.0) 09/14/24 08:00 INR 1.0 (0.9-1.1) 09/14/24 08:00 APTT 36 Seconds (21-31) H 08/31/24 04:04 Hemoglobin A1c 8.7 % (4.5-5.6) H 08/28/24 20:39 Urine Color [place] 08/29/24 Unknown Urine Appearance Cloudy (Clear) A 08/29/24 Unknown Urine pH 5.5 (4.5-7.5) 08/29/24 Unknown Ur Specific [place] 1.020 (1.000-1.030) 08/29/24 Unknown Urine Protein 3+ (Negative) H 08/29/24 Unknown Urine Glucose (UA) 3+ (Negative) H 08/29/24 Unknown Urine Ketones 1+ (Negative) H 08/29/24 Unknown Urine Nitrite Negative (Negative) 08/29/24 Unknown Ur Leukocyte Esterase Trace (Negative) H 08/29/24 Unknown Urine WBC (Auto) 11-20 /hpf (0-5) H 08/29/24 Unknown Urine RBC (Auto) 11-20 /hpf (0-2) H 08/29/24 Unknown U Hyaline Cast (Auto) 3-5 /lpf (0-2) H 08/29/24 Unknown U Epithel Cells (Auto) 0-2 /hpf (0-2) 08/29/24 Unknown Urine Bacteria (Auto) 2+ (None Seen) H 08/29/24 Unknown 08/28/24 22:47 Aerobic Blood Culture - Final Blood No growth in Aerobic bottle after 5 days. Anaerobic Blood Culture - Final No growth in Anaerobic bottle after 5 days. 08/28/24 22:47 Aerobic Blood Culture - Final Blood No growth in Aerobic bottle after 5 days. Anaerobic Blood Culture - Final No growth in Anaerobic bottle after 5 days. 08/29/24 Unknown Urine Culture - Final Urine,Straight Cath No growth - less than 1,000 colonies/mL. 09/15/24 09/15/24 08:01 03:58 POC Glucose 139 H 141 H
--- NOTE | 2024-09-15 15:00 | Gastroenterology Progress Note ---
Date of Service September 15, 2024 Assessment & Plan (1) Dysphagia: Plan: EGD with PEG placed (2) Rectal mass: Plan: Flexible sigmoidoscopy Admission and Anticipated Discharge Date Admission Date: August 28, 2024 Subjective Patient for PEG today. Feeding difficulties. See failed video fluoroscopy. Is also a history of an abnormal mass in the rectum on CT scan in June. Will perform flex sig today. Patient's heparin is on hold. She is getting broad-spectrum antibiotics INR is normal platelets are normal Physical Exam Physical Exam: Benign abdominal exam. She does have a fairly large midline incision. Though this stops just above the umbilicus does not extend into the epigastric or left upper quadrant. Should not preclude PEG placement. Results & Data Results & Data Vital Signs (Past 12 Hours) Vital Signs Temp Pulse Pulse Pulse Pulse Resp BP 09/15/24 14:34 36.2 C L 83 16 09/15/24 12:40 36.4 C L 76 09/15/24 12:30 79 131/87 09/15/24 12:00 82 135/84 09/15/24 11:30 83 140/89 09/15/24 11:00 85 151/81 H 09/15/24 10:30 80 148/91 H 09/15/24 10:00 71 147/95 H 09/15/24 09:36 77 171/97 H 09/15/24 09:33 36.4 C L 76 09/15/24 08:21 09/15/24 07:04 36.4 C L 72 18 09/15/24 03:22 36.8 C 80 18 BP BP Pulse Ox O2 Del Method 09/15/24 14:34 180/90 H 93 Room Air 09/15/24 12:40 156/88 H 09/15/24 12:30 09/15/24 12:00 09/15/24 11:30 09/15/24 11:00 09/15/24 10:30 09/15/24 10:00 09/15/24 09:36 09/15/24 09:33 09/15/24 08:21 Room Air 09/15/24 07:04 114/72 93 Room Air 09/15/24 03:22 126/86 98 Room Air PG Care Time/CCT Total # of Minutes Spent Total Time Spent with Patient: Total time spent is greater than 50% in coordination of care (as documented) at patient's floor/unit and/or counseling patient: Coding Level of Care Code None Diagnoses Oropharyngeal dysphagia R13.12 Dysphagia type: oropharyngeal phase Rectal mass K62.89 (1) Dysphagia Dysphagia type: oropharyngeal phase Qualified Code(s): R13.12 - Dysphagia, oropharyngeal phase
--- NOTE | 2024-09-15 16:09 | GI REPORT ---
[facility] Patient: JUDY SAWYER : 1960 Sex at : Female Age: 63 Years Procedure: Upper GI endoscopy Date: 09/15/2024 Attending Physician: Sourav Francis MD Referring MD: Radha Briseno Rn Indications: - EGD for PEG placement, failed swallowing study. Medications: - Monitored Anesthesia Care Complications: - No immediate complications. Estimated Blood Loss: - Estimated blood loss was minimal. Procedure: - The egd scope was introduced through the mouth and advanced to the second part of the duodenum. - The upper GI endoscopy was accomplished without difficulty. Findings: - LA Grade C (one or more mucosal breaks continuous between tops of 2 or more mucosal folds, less than 75% circumference) esophagitis with no bleeding was found at the gastroesophageal junction (on retroflexion). - Hematin (altered blood/jwvunj-jiwqnz-qgvc material) was found in the gastric body and in the gastric antrum. Biopsies were taken with a cold forceps for histology. - Diffuse stress gastritis with surface hemorrhage altered heme. No kat ulcers. - Patchy moderate inflammation characterized by erythema and granularity was found in the first portion of the duodenum and in the second portion of the duodenum. - After endoscopy the upper GI tract the patient was rotated onto her back. The abdomen was transilluminated. Patient has significant abdominal adiposity. With the lights down and palpating the light reflex was seen in the left upper quadrant. Palpation this area freely transmitted to the gastric lumen. The area then was marked prepped and draped in a sterile fashion a 22 blind escort needle was inserted through the abdominal wall and easily entered the stomach. The needle was withdrawn. Lidocaine was injected in the skin itself. An X shaped incision then was made in the abdominal wall. A Angiocath then was inserted through the abdominal wall once again freely into the gastric lumen. A guidewire was inserted through this Angiocath and snared and pulled retrogradely through the oropharynx a pull-type Cook gastrostomy tube was inserted over this guidewire and pulled antegrade through the oropharynx and out through the abdominal wall the PEG was fixed to the abdominal wall with external bolster. Proper placement of the PEG was confirmed byDirect visualization by reintroducing the upper endoscope. Procedure was completed patient tolerated well. Impression: - Diffuse stress gastritis with surface hemorrhage altered heme. No kat ulcers. - After endoscopy the upper GI tract the patient was rotated onto her back. The abdomen was transilluminated. Patient has significant abdominal adiposity. With the lights down and palpating the light reflex was seen in the left upper quadrant. Palpation this area freely transmitted to the gastric lumen. The area then was marked prepped and draped in a sterile fashion a 22 blind escort needle was inserted through the abdominal wall and easily entered the stomach. The needle was withdrawn. Lidocaine was injected in the skin itself. An X shaped incision then was made in the abdominal wall. A Angiocath then was inserted through the abdominal wall once again freely into the gastric lumen. A guidewire was inserted through this Angiocath and snared and pulled retrogradely through the oropharynx a pull-type Cook gastrostomy tube was inserted over this guidewire and pulled antegrade through the oropharynx and out through the abdominal wall the PEG was fixed to the abdominal wall with external bolster. Proper placement of the PEG was confirmed byDirect visualization by reintroducing the upper endoscope. Procedure was completed patient tolerated well. - LA Grade C reflux esophagitis with no bleeding. - Hematin (altered blood/uespsd-qqppec-smch material) in the gastric body and in the gastric antrum. Biopsied. - Duodenitis, characterized by erythema and granularity. - Uncomplicated PEG placement. Recommendation: - Await pathology results. - Increase Prevacid to twice daily. Add some Carafate for the diffuse esophagitis gastritis and duodenitis encountered. - May use the PEG tube for feeds and medications tomorrow Procedure Code(s): - 82615, Esophagogastroduodenoscopy, flexible, transoral; with biopsy, single or multiple Diagnosis Code(s): - K21.00, Gastro-esophageal reflux disease with esophagitis, without bleeding - K92.2, Gastrointestinal hemorrhage, unspecified - K29.80, Duodenitis without bleeding CPT(R) - 2023 copyright [employer]. All Rights Reserved. The CPT codes, CCI edits and ICD codes generated are intended as suggestions and were generated based on input data. These codes are preliminary and upon jewelry store manager review may be revised to meet current compliance and payer requirements. The provider is responsible for the final determination of appropriate codes, and modifiers. Sourav Francis MD This document has been electronically signed. Note Initiated:09/15/2024 Note Completed:09/15/2024 4:07 PM \\[email or web address]\Provation\Results\LIVE\[id number].pdf
--- NOTE | 2024-09-15 16:11 | GI REPORT ---
[facility] Patient: JUDY SAWYER : 1960 Sex at : Female Age: 63 Years Procedure: Flexible Sigmoidoscopy Date: 09/15/2024 Attending Physician: Sourav Francis MD Referring MD: Radha Briseno Rn Indications: - Possible rectal mass on CT scan. Medications: - The lower GI prep was not good. Extensive lavage was undertaken to visualize the lumen and mucosa. By this method were able to get fairly good visualization of the rectum rectosigmoid and distal sigmoid there was approximately 1 cm sessile polyp of the rectum. We sampled this did not remove it. Based on patient's numerous medical problems at present the need for dialysis and heparinization I do not think the risk of a rectal bleed by is warranted by removing what appeared to be a benign polyp. Await pathology. In the absence of atypia dysplasia would recommend returning in 6 months or so with potentially full colonoscopy at that time patient's health permitting for polypectomy of this and other polyps that may be present. Complications: Procedure: - The adult colonoscope was introduced through the anus and advanced to the sigmoid colon. - The flexible sigmoidoscopy was accomplished without difficulty. - The quality of the bowel preparation was poor. Findings: Impression: - Preparation of the colon was poor. - No specimens collected. Recommendation: Procedure Code(s): - 61900, Sigmoidoscopy, flexible; diagnostic, including collection of specimen(s) by brushing or washing, when performed (separate procedure) CPT(R) - 2023 copyright [employer]. All Rights Reserved. The CPT codes, CCI edits and ICD codes generated are intended as suggestions and were generated based on input data. These codes are preliminary and upon geospatial image analyst review may be revised to meet current compliance and payer requirements. The provider is responsible for the final determination of appropriate codes, and modifiers. Sourav Francis MD This document has been electronically signed. Note Initiated:09/15/2024 Note Completed:09/15/2024 4:09 PM \\[email or web address]\Provation\Results\[email or web address]\[id number]
--- NOTE | 2024-09-15 16:30 | Anesthesiology Progress Note ---
Date of Service September 15, 2024 Anesthesia Post Procedure Vital Signs Vital Signs: Temp Pulse Pulse Pulse Pulse Resp BP 09/15/24 16:18 96 H 20 09/15/24 16:03 89 22 09/15/24 14:34 36.2 C L 83 16 09/15/24 12:40 36.4 C L 76 09/15/24 12:30 79 131/87 09/15/24 12:00 82 135/84 09/15/24 11:30 83 140/89 09/15/24 11:00 85 151/81 H 09/15/24 10:30 80 148/91 H 09/15/24 10:00 71 147/95 H 09/15/24 09:36 77 171/97 H 09/15/24 09:33 36.4 C L 76 09/15/24 08:21 09/15/24 07:04 36.4 C L 72 18 09/15/24 03:22 36.8 C 80 18 09/15/24 00:00 86 09/14/24 23:23 36.6 C 85 16 09/14/24 20:32 36.7 C 72 16 09/14/24 20:00 BP BP Pulse Ox O2 Del Method O2 Flow Rate 09/15/24 16:18 165/85 H 98 Room Air 09/15/24 16:03 151/73 H 98 Oxymask 4 09/15/24 14:34 180/90 H 93 Room Air 09/15/24 12:40 156/88 H 09/15/24 12:30 09/15/24 12:00 09/15/24 11:30 09/15/24 11:00 09/15/24 10:30 09/15/24 10:00 09/15/24 09:36 09/15/24 09:33 09/15/24 08:21 Room Air 09/15/24 07:04 114/72 93 Room Air 09/15/24 03:22 126/86 98 Room Air 09/15/24 00:00 09/14/24 23:23 140/33 L 97 Room Air 09/14/24 20:32 115/70 93 Room Air 09/14/24 20:00 Room Air Transfer of Care Handoff Completed per policy Notes Mental Status: alert / awake / arousable Patient Amnestic to Procedure: Yes Nausea / Vomiting: adequately controlled Pain: adequately controlled Airway Patency, RR, SpO2: stable & adequate BP & HR: stable & adequate Hydration State: stable & adequate Anesthetic Complications: no major complications apparent and Pt Satisfied with anesthetic care
--- NOTE | 2024-09-15 16:37 | Hospitalist Progress Note ---
Date of Service September 15, 2024 Assessment & Plan (1) Admitted to intensive care unit: (2) Shock: (3) DKA (diabetic ketoacidosis): (4) ARF (acute renal failure): (5) Encephalopathy: (6) Metabolic acidosis: Plan Patient is a 63 yo female with a PMH of PAD, rectal mass on CT awaiting colonoscopy, DM1, diabetic foot ulcer complicated by osteomyelitis, HLD, peripheral neuropathy, hypothyroidism, & lower extremity edema who presented to [facility] on 08/28/24 after being found unresponsive by her family. She was brought to the ED where glucose was 1262 and she was noted to be in DKA with a pH of 6.92. Procalcitonin was elevated on admission. She was intubated for airway protection and initiated on Bicarb and Levophed. Broad spectrum antibiotics were initiated as infectious process could not be ruled out at the time of admission. Now with worsening renal function and in need of HD #Vocal cord malfunction/dysphonia - likely from intubation - ENT was on board recommended steroids, pt's symptoms improved with steroids and racemic epinephrine - currently on solumedrol 40 IV q12h. Titrated down to daily - pt currently on PPN due to inability to insert PICC for TPN - pt failed repeat video swallow on 09/11, final [employer] recs appreciated -PEG tube placed today 09/15 EGD showed gastritis/esophagitis. Lansoprazole increased to twice daily dosing. Started Carafate per GI recommendations. - cont glycopyrrolate to help with secretions #Leucocytosis - Most likely from steroids - wbc was normal prior to starting steroids #Shock - Resolved #Hypoxic resp failure - Resolved - Now extubated - Saturating well on room air - completed a course of cefazolin for suspected PNA. - cultures negative so far - However, x ray suggests some infiltrates, on zosyn for suspected aspiration pna (09/09 - 09/16) #Acute renal failure - due to acute tubular necrosis - Now got a tunneled catheter, for HD - Renal function yet to recover - nephro on board, recs appreciated - CM working on outpatient HD chair #DKA with hyperglycemia - resolved - A1c: 8.7 - currently on lantus and sliding scale - continue to monitor #Elevated troponin - suspect demand and poor clearance in the setting of ARF - EKG unremarkable - bedside ECHO with adequate contractility of RV and LV #Metabolic encephalopathy - Resolved - CT head neg #Malnutrition - Prolonged NPO status - failed video swallow 09/11 - Nutritional services on board -Discontinue PPN now that PEG tube is in place Will be able to start tube feeds via PEG tube tomorrow Will speak to dietitian about tube feeds #Hematuria - Stacy draining pink urine - Hb stable - urology following peripherally #Deconditioning - PT/OT on board #Rectal mass -Sigmoidoscopy done today showed rectal polyp and no mass #PAD s/p right fem endarterectomy #Peripheral neuropathy #Hypothyroidism: on levothyroxine 100mcg at home, change to IV #HLD: rosuvastatin 40mg at home #Chronic lower extremity edema: lasix 40mg daily at home DVT ppx: hep subq , scds Admission and Anticipated Discharge Date Admission Date: August 28, 2024 Subjective Patient was seen and examined at dialysis today at 12:35 PM. No chest pain or shortness of breath. She is aware that she will have a PEG tube placed today. Review of Systems Review of Systems: All systems reviewed & are unremarkable except as noted in Subjective Physical Exam Physical Exam: General: Awake, conversant. Chronically ill-appearing Heart: S1, S2/regular rate and rhythm, no murmur rubs or gallops Lungs: Clear to auscultation bilaterally. Normal effort Abdomen: Soft/nontender/nondistended. No hepatosplenomegaly Extremities: No clubbing/cyanosis. No edema Behavior: Appropriate, cooperative Results & Data Results & Data Vital Signs (Past 12 Hours) Vital Signs Temp Pulse Pulse Pulse Pulse Resp BP 09/15/24 16:18 96 H 20 09/15/24 16:03 89 22 09/15/24 14:34 36.2 C L 83 16 09/15/24 12:40 36.4 C L 76 09/15/24 12:30 79 131/87 09/15/24 12:00 82 135/84 09/15/24 11:30 83 140/89 09/15/24 11:00 85 151/81 H 09/15/24 10:30 80 148/91 H 09/15/24 10:00 71 147/95 H 09/15/24 09:36 77 171/97 H 09/15/24 09:33 36.4 C L 76 09/15/24 08:21 09/15/24 07:04 36.4 C L 72 18 BP BP Pulse Ox O2 Del Method O2 Flow Rate 09/15/24 16:18 165/85 H 98 Room Air 09/15/24 16:03 151/73 H 98 Oxymask 4 09/15/24 14:34 180/90 H 93 Room Air 09/15/24 12:40 156/88 H 09/15/24 12:30 09/15/24 12:00 09/15/24 11:30 09/15/24 11:00 09/15/24 10:30 09/15/24 10:00 09/15/24 09:36 09/15/24 09:33 09/15/24 08:21 Room Air 09/15/24 07:04 114/72 93 Room Air Laboratory Results Abnormal lab results 09/14/24 09/15/24 09/15/24 Range/Units 20:00 00:03 00:04 WBC (4.8-10.8) K/ul RBC (4.20-5.40) M/uL Hgb (12.0-16.0) g/dl Hct (37.0-47.0) % BUN (6-23) mg/dl Creatinine (0.6-1.2) mg/dl Glucose (70-99(Fasting)) mg/dl POC Glucose 177 H 212 H 198 H (70-99) mg/dl Calcium (8.6-10.3) mg/dl 09/15/24 09/15/24 09/15/24 Range/Units 03:58 07:36 08:01 WBC 14.35 H (4.8-10.8) K/ul RBC 3.63 L (4.20-5.40) M/uL Hgb 10.6 L (12.0-16.0) g/dl Hct 31.2 L (37.0-47.0) % BUN 83 H (6-23) mg/dl Creatinine 5.08 H* D (0.6-1.2) mg/dl Glucose 136 H (70-99(Fasting)) mg/dl POC Glucose 141 H 139 H (70-99) mg/dl Calcium 8.4 L (8.6-10.3) mg/dl PG Care Time/CCT Total # of Minutes Spent Total Time Spent with Patient: Total time spent is greater than 50% in coordination of care (as documented) at patient's floor/unit and/or counseling patient: Coding Level of Care Code 19474 SUB INP/OBS CARE 2/35MIN Diagnoses Admitted to intensive care unit Z78.9 Shock R57.9 DKA (diabetic ketoacidosis) E13.11 Diabetes mellitus complication detail: with coma Diabetes mellitus type: other specified (including SHILPA) ARF (acute renal failure) N17.9 Encephalopathy G93.40 Metabolic acidosis E87.20 (3) DKA (diabetic ketoacidosis) Diabetes mellitus complication detail: with coma Diabetes mellitus type: other specified (including SHILPA) Qualified Code(s): E13.11 - Other specified diabetes mellitus with ketoacidosis with coma
[2024-09-15] MEDS: PROPOFOL IV EMULSION 10 MG/ML 20 ML VIAL IV ONE ×2 (16:55)
[2024-09-15] MEDS: LIDOCAINE 2% 2 ML VIAL/AMP(20MG/ML) INFIL ONE (16:55)
[2024-09-15] MEDS: LANTUS PER UNIT CHARGE SC SCH ×2 (17:07→21:19)
[2024-09-15] MEDS: [UNRECOGNIZED DRUG - REMARK] ONE (17:08)
--- NOTE | 2024-09-15 17:35 | Communication Note ---
Date of Service: September 15, 2024 Patient examined post PEG placed. Sleeping arouses to voice. States her stomach feels a little uncomfortable 2 out of 10. This would be expected. Abd omen soft bowel sounds present. Reviewed PEG placement and rectal findings which include a polyp not removed. Sampled. Recommend full colonoscopy 6 months once that her acute issues have resolved.
[2024-09-15] MEDS: D5W AND NSS 1,000 ML IV SCH (17:37)
[2024-09-15] MEDS: SUCRALFATE 1 GM/10 ML UDC PO SCH (21:23)
[2024-09-15] MEDS: LANSOPRAZOLE 30 MG SOLTAB PO SCH (21:24)
[2024-09-16 08:00] LABS: Hematocrit (blood only) 30.6 % (37.0-47.0); Hemoglobin 10.3 g/dl (12.0-16.0); Mean Corpuscular Hemoglobin 29.6 pg (25.0-34.0); Mean Corpuscular Hgb Conc 33.7 g/dL (32.0-36.0); Mean Corpuscular Volume 87.9 fL (80.0-100.0); Mean Platelet Volume 10.4 fL (9.4-12.4); Platelet Count 220 K/uL (130-400); RDW Coefficient of Variation 13.6 % (11.5-14.5); RDW Standard Deviation 43.4 fL (36.4-46.3); Red Blood Count 3.48 M/uL (4.20-5.40); White Blood Count 13.09 K/ul (4.8-10.8)
--- NOTE | 2024-09-16 08:22 | Gastroenterology Progress Note ---
Date of Service September 16, 2024 Assessment & Plan (1) PEG (percutaneous endoscopic gastrostomy) status: Plan: Clinically stable, can begin to use the PEG Admission and Anticipated Discharge Date Admission Date: August 28, 2024 Subjective Patient examined at the bedside. Watching TV. Notes some discomfort at the PEG site though less than last evening. Abdomen is benign bowel sounds present white count and hemoglobin stable Can begin to use the PEG today. Physical Exam Constitutional: Exam as noted above Results & Data Results & Data Vital Signs (Past 12 Hours) Vital Signs Temp Pulse Pulse Pulse Resp BP Pulse Ox 09/16/24 07:31 36.4 C L 79 18 128/79 94 09/16/24 02:59 36.7 C 80 17 145/84 H 93 09/16/24 00:00 84 09/15/24 22:55 36.7 C 81 16 124/81 95 O2 Del Method 09/16/24 07:31 Room Air 09/16/24 02:59 Room Air 09/16/24 00:00 09/15/24 22:55 Room Air PG Care Time/CCT Total # of Minutes Spent Total Time Spent with Patient: Total time spent is greater than 50% in coordination of care (as documented) at patient's floor/unit and/or counseling patient: Coding Level of Care Code None Diagnoses PEG (percutaneous endoscopic gastrostomy) status Z93.1
[2024-09-16 08:24] LABS: BUN Creatinine Ratio 13.4 (10-20); Calcium 8.2 mg/dl (8.6-10.3); Creatinine Clr Calc Pharmacy 16.9 ml/min; Potassium 3.3 mmol/L (3.5-5.1)
--- NOTE | 2024-09-16 08:31 | Nephrology Progress Note ---
Date of Service September 16, 2024 Assessment & Plan (1) LIDIA (acute kidney injury): Plan: * LIDIA due to profound dehydration and hypotension related to DKA. Urine microscopy revealed granular casts consistent with ATN * Renal ultrasound was negative for obstruction * Temporary dialysis catheter placed on 09/01/24 has been removed. Started HD 09/01. TCC was placed 09/05/[address] Fitzgerald * Patient was last dialyzed 09/12/2024 for 1.6 L UF. No complications * UO 1350 cc last shift * Serum creatinine continues to increase in between treatments. Patient remains within the injury phase of LIDIA. * Will check BMP in am and tentatively plan on next HD tomorrow (2) Hematuria: Plan: * Stacy remains in place * Urology consult completed. Outpatient evaluation planned. No concerning lesions on CT. (3) Difficulty swallowing liquids: Plan: * Vocal cord dysfunction/dysphonia likely due to intubation * Video swallow demonstrated aspiration * s/p PEG placement 09/15/24 * Plan 6 weeks PEG tube feeding and then reassess ability to swallow Admission and Anticipated Discharge Date Admission Date: August 28, 2024 Subjective Mrs. Sorenson was evaluated in her hospital room this morning. She recieved HD yesterday followed by PEG tube insertion. She reports no new medical concerns this am. Voice is improved. Review of Systems Constitutional: no fever Eyes: no problem reported Ear, Nose, Mouth, Throat: + dysphagia Respiratory: no cough and no dyspnea Cardiovascular: no chest pain Gastrointestinal: no abdominal pain, no nausea, no vomiting and no diarrhea/loose stools Genitourinary: no problem reported Musculoskeletal: no back pain Physical Exam Constitutional: not in distress Eyes: PERRL, conjunctivae normal, anicteric sclerae ENMT: external ear and nose normal, oropharynx normal Neck: trachea midline, no thyromegaly (R IJ TCC with clean dry dressing in place) Respiratory: normal respiratory effort, lungs clear to auscultation Cardiovascular: RRR, no murmur, no edema Rate/Rhythm: regular rate and regular rhythm Extremities: + edema (1+ dependent pitting edema) Gastrointestinal (Abdomen): normal bowel sounds, soft, nontender, no hepatosplenomegaly Inspection/Auscultation: normal bowel sounds and + hypoactive bowel sounds Percussion/Palpation: abdomen soft Musculoskeletal: Extremities: no cyanosis and no clubbing Skin: no rashes, warm and dry Neurologic: awake; not confused Results & Data Vital Signs (Past 12 Hours) Vital Signs Temp Pulse Pulse Pulse Resp BP Pulse Ox 09/16/24 07:31 36.4 C L 79 18 128/79 94 09/16/24 02:59 36.7 C 80 17 145/84 H 93 09/16/24 00:00 84 09/15/24 22:55 36.7 C 81 16 124/81 95 O2 Del Method 09/16/24 07:31 Room Air 09/16/24 02:59 Room Air 09/16/24 00:00 09/15/24 22:55 Room Air Laboratory Results Laboratory Results - last 24 hr 09/15/24 09/15/24 09/16/24 16:53 19:47 00:04 WBC RBC Hgb Hct MCV MCH MCHC RDW Std Deviation RDW Coeff of Tressa Plt Count MPV Sodium Potassium Chloride Carbon Dioxide Anion Gap BUN Creatinine Est Cr Clr Drug Dosing eGFR BUN/Creatinine Ratio Glucose POC Glucose 155 H 166 H 119 H Calcium 09/16/24 09/16/24 09/16/24 04:00 07:28 07:41 WBC 13.09 H RBC 3.48 L Hgb 10.3 L Hct 30.6 L MCV 87.9 MCH 29.6 MCHC 33.7 RDW Std Deviation 43.4 RDW Coeff of Tressa 13.6 Plt Count 220 MPV 10.4 Sodium 140 Potassium 3.3 L Chloride 108 H Carbon Dioxide 24 Anion Gap 8 BUN 52 H D Creatinine 3.88 H D Est Cr Clr Drug Dosing 16.9 eGFR 12.44 BUN/Creatinine Ratio 13.4 Glucose 85 POC Glucose 86 83 Calcium 8.2 L PG Care Time/CCT Total # of Minutes Spent Total Time Spent with Patient: Total time spent is greater than 50% in coordination of care (as documented) at patient's floor/unit and/or counseling patient: Coding Level of Care Code 80680 SUB INP/OBS CARE 3/50MIN Diagnoses LIDIA (acute kidney injury) N17.9 Hematuria R31.9 Difficulty swallowing liquids R13.10
[2024-09-16] MEDS: methylPREDNISolone 40 MG in SYRINGE 0 ML IV SCH (11:21)
--- NOTE | 2024-09-16 14:02 | Pharmacy Report ---
Pharmacy Glycemic Short Note 2 - Date of Service September 16, 2024 - Glycemic Short BSG Results (Last 24 hours): 09/15/24 09/15/24 09/16/24 16:53 19:47 00:04 Glucose POC Glucose 155 H 166 H 119 H 09/16/24 09/16/24 09/16/24 04:00 07:28 07:41 Glucose 85 POC Glucose 86 83 09/16/24 11:54 Glucose POC Glucose 78 OUTPATIENT ANTIDIABETIC REGIMEN: * Lantus 15 units SC BID * Novolog 8 units SC AC * A1c = 8.7% (08/28/24) ASSESSMENT: 09/16/24: * Blood sugars, while reasonably controlled through the end of 09/15, have dropped below the goal range ranging from 78-86 mg/dL on 09/16. Consequently, Novolog parameters have been loosened and bedtime Lantus dose has been lessened to prevent hypoglycemia. * Methylprednisolone was decreased from 40 mg IV q12h to daily on 09/15, likely contributing to lower BSGs today. * Patient will be tube fed starting at 1600 on 09/16. Patient also receiving D5W [place] [address]209/16. 09/15/24: * Blood sugars reasonably controlled over past 48 hours * Patient has been receiving PPN for 10 days, failed PICC placement. PEG placement scheduled for today. * PPN to be held after currently infusing bag finishes. * Remains on methylprednisolone 40 mg IV q12h 09/12 * Tania received 56 units of insulin yesterday (30 were basal) * Fasting BSG this AM elevated, will increase basal insulin by at least 15% allowing for extra if BSGs still elevated * No changes to NovoLog at this time, consider tightening carbohydrate ratio if BSGs remain elevated 09/10: * Received 39 units of insulin yesterday, 27 of which were basal. BSGs were: [phone] mg/dL. * Fasting BSG increased to 207 mg/dL this AM. May be due to steroids. Remains on SoluMedrol 40 mg IV every 8 hours. Will increase basal scale by ~20% today. * Continues on Zosyn and PPN. To undergo another HD session today. Plan is to have PICC line placed this afternoon and possibly start TPN tomorrow. Currently covering for dextrose in PN bag with Novolog. 09/09: * Tania received 25 units of insulin yeserday, 17 of which were basal. BSGs were: [phone] mg/dL. This has been about average for the patient since starting on PPN. Did receive HD yesterday. * Fasting BSG improved to 158 mg/dL this AM. No plans for HD today. Remains on 24 hour PPN that contains 60 total g of Dextrose. * Patient also started on Zosyn for pulmonary source today as well as SoluMedrol 40 mg IV every 8 hours. Suspect this will increase her BSGs throughout the evening. * Received previous basal dose of 7 units this AM. Will add 8 units x 1 at lunch given addition of steroids. This matches the patients home dose of 15 units in the AM. Will start a scaled basal dose this evening to provide a max of 15 units BID which is what the patient takes at home. Tightened CF this AM as well. Added a carb ratio of 5 when steroids were started. Instructed RN that PPN will provide 10 g of carbs/dextrose every 4 hours so patient should receive at minimum, 2 units of bolus insulin every 4 hours (does not include correctional dose for BSGs above goal). 09/05: * Pts BSGs have been mostly in goal since yesterday; 111 this morning and 145 at lunch * Pt continues to be in NPO status and was not given her Lantus dose this morning possibly because of going to the OR for cath placement * Pt also starting PPN today d/t NPO status/inability for using tube feeds. * Will keep NovoLog parameters unchanged and continue same Lantus dosing in addition to one time 5 unit dose at lunch to make up for the one she missed this morning. 09/03: * Type 1 diabetic admitted for severe DKA due to ~3 day h/o NV and abdominal pain with omission of insulin, hypotension requiring pressors, severe LIDIA and resp failure requiring intubation. * Severe LIDIA persists, now receiving [employer]MENT [employer]TERATION EXAMINER in the form of intermittent HD (pe rformed 09/01 and 09/02) * Patient was extubated this AM, tube feeds have been discontinued. * Patient will be at risk for hypoglycemia in setting of no IV or enteral carb provision. May need to consider addition of IV dextrose provision to permit ongoing basal insulin administration to type 1 diabetic. Will scale back basal insulin doses, continue to admin BID to allow for greater flexibility to hold a dose if needed. PLAN FOR INPATIENT GLYCEMIC CONTROL: * Basal insulin * Lantus 10 units SC daily * Lantus 0-5-10 units SC HS (see EHR for details) * Bolus insulin * NovoLog per scale Q4hrs * Goal Range: Low 110 mg/dL - High 150 mg/dL * Correction Factor: 30 mg/dL/unit * Nutritional / Prandial insulin per carb ratio of 1 unit per 10 grams CHO consumed
--- NOTE | 2024-09-16 16:11 | Hospitalist Progress Note ---
Date of Service September 16, 2024 Assessment & Plan (1) Admitted to intensive care unit: (2) Shock: (3) DKA (diabetic ketoacidosis): (4) ARF (acute renal failure): (5) Encephalopathy: (6) Metabolic acidosis: Plan Patient is a 63 yo female with a PMH of PAD, rectal mass on CT awaiting colonoscopy, DM1, diabetic foot ulcer complicated by osteomyelitis, HLD, peripheral neuropathy, hypothyroidism, & lower extremity edema who presented to [facility] on 08/28/24 after being found unresponsive by her family. She was brought to the ED where glucose was 1262 and she was noted to be in DKA with a pH of 6.92. Procalcitonin was elevated on admission. She was intubated for airway protection and initiated on Bicarb and Levophed. Broad spectrum antibiotics were initiated as infectious process could not be ruled out at the time of admission. Now with worsening renal function and in need of HD #Vocal cord malfunction/dysphonia - likely from intubation - ENT was on board recommended steroids, pt's symptoms improved with steroids and racemic epinephrine - currently on solumedrol 40 IV q12h. Titrated down to daily on 09/15. Will titrate down further - pt currently on PPN due to inability to insert PICC for TPN - pt failed repeat video swallow on 09/11, final AMBULATORY CARE recs appreciated -PEG tube placed 09/15 EGD showed gastritis/esophagitis. Lansoprazole increased to twice daily dosing. Started Carafate per GI recommendations. - cont glycopyrrolate to help with secretions #Leucocytosis - Most likely from steroids Titrate steroids down - wbc was normal prior to starting steroids #Shock - Resolved #Hypoxic resp failure - Resolved - Now extubated - Saturating well on room air - completed a course of cefazolin for suspected PNA. - cultures negative so far - However, x ray suggests some infiltrates, on zosyn for suspected aspiration pna (09/09 - 09/16) #Acute renal failure - due to acute tubular necrosis - Now got a tunneled catheter, for HD - Renal function yet to recover - nephro on board, recs appreciated - CM working on outpatient HD chair #DKA with hyperglycemia - resolved - A1c: 8.7 - currently on lantus and sliding scale - continue to monitor Discontinue D5 normal saline that was started while she was n.p.o. now that she is going to be started on tube feeds #Elevated troponin - suspect demand and poor clearance in the setting of ARF - EKG unremarkable - bedside ECHO with adequate contractility of RV and LV #Metabolic encephalopathy - Resolved - CT head neg #Malnutrition - Prolonged NPO status - failed video swallow 09/11 - Nutritional services on board -Discontinued PPN now that PEG tube is in place Will be able to start tube feeds via PEG tube today #Hematuria - Stacy draining pink urine - Hb stable - urology following peripherally #Deconditioning - PT/OT on board #Rectal mass -Sigmoidoscopy done today showed rectal polyp and no mass #PAD s/p right fem endarterectomy #Peripheral neuropathy #Hypothyroidism: on levothyroxine 100mcg at home, change to IV #HLD: rosuvastatin 40mg at home #Chronic lower extremity edema: lasix 40mg daily at home DVT ppx: hep subq , scds CODE STATUS: Addressed 09/16. She wishes to be a DO NOT RESUSCITATE/DO NOT INTUBATE. Documented Admission and Anticipated Discharge Date Admission Date: August 28, 2024 Subjective Patient was seen and examined at 12:25 PM. She feels well overall. She denied any chest pain or shortness of breath. She denies abdominal pain. She had a PEG tube placed on 09/15. Review of Systems Review of Systems: All systems reviewed & are unremarkable except as noted in Subjective Physical Exam Physical Exam: General: Awake, conversant. Chronically ill-appearing Heart: S1, S2/regular rate and rhythm, no murmur rubs or gallops Lungs: Clear to auscultation bilaterally. Normal effort Abdomen: Soft/nontender/nondistended. No hepatosplenomegaly Extremities: No clubbing/cyanosis. No edema Behavior: Appropriate, cooperative Results & Data Results & Data Vital Signs (Past 12 Hours) Vital Signs Temp Pulse Pulse Pulse Resp BP Pulse Ox 09/16/24 15:32 36.9 C 87 18 135/80 98 09/16/24 11:50 36.7 C 79 79 18 162/83 H 95 09/16/24 10:34 09/16/24 08:00 72 09/16/24 07:31 36.4 C L 79 18 128/79 94 O2 Del Method 09/16/24 15:32 Room Air 09/16/24 11:50 Room Air 09/16/24 10:34 Room Air 09/16/24 08:00 09/16/24 07:31 Room Air Laboratory Results Abnormal lab results 09/15/24 09/15/24 09/16/24 Range/Units 16:53 19:47 00:04 WBC (4.8-10.8) K/ul RBC (4.20-5.40) M/uL Hgb (12.0-16.0) g/dl Hct (37.0-47.0) % Potassium (3.5-5.1) mmol/L Chloride (98-107) mmol/L BUN (6-23) mg/dl Creatinine (0.6-1.2) mg/dl POC Glucose 155 H 166 H 119 H (70-99) mg/dl Calcium (8.6-10.3) mg/dl 09/16/24 Range/Units 07:41 WBC 13.09 H (4.8-10.8) K/ul RBC 3.48 L (4.20-5.40) M/uL Hgb 10.3 L (12.0-16.0) g/dl Hct 30.6 L (37.0-47.0) % Potassium 3.3 L (3.5-5.1) mmol/L Chloride 108 H (98-107) mmol/L BUN 52 H D (6-23) mg/dl Creatinine 3.88 H D (0.6-1.2) mg/dl POC Glucose (70-99) mg/dl Calcium 8.2 L (8.6-10.3) mg/dl PG Care Time/CCT Total # of Minutes Spent Total Time Spent with Patient: Total time spent is greater than 50% in coordination of care (as documented) at patient's floor/unit and/or counseling patient: Coding Level of Care Code 98947 SUB INP/OBS CARE 2/35MIN Diagnoses Admitted to intensive care unit Z78.9 Shock R57.9 DKA (diabetic ketoacidosis) E13.11 Diabetes mellitus complication detail: with coma Diabetes mellitus type: other specified (including SHILPA) ARF (acute renal failure) N17.9 Encephalopathy G93.40 Metabolic acidosis E87.20 (3) DKA (diabetic ketoacidosis) Diabetes mellitus complication detail: with coma Diabetes mellitus type: other specified (including SHILPA) Qualified Code(s): E13.11 - Other specified diabetes mellitus with ketoacidosis with coma
[2024-09-16] MEDS: NOVASOURCE RENAL 2.0 CAL 1000ML BAG PEG SCH (17:04)
[2024-09-16] MEDS: TUBE FEEDING WATER FLUSH PEG SCH (17:15)
--- NOTE | 2024-09-17 08:17 | Gastroenterology Progress Note ---
Date of Service September 17, 2024 Assessment & Plan (1) PEG (percutaneous endoscopic gastrostomy) status: Plan: PEG site clean. External bolster loosened slightly. GI will sign off reconsult as needed Patient does have significant stress gastritis and moderate severe esophagitis. Discharge on daily PPI which should be continued indefinitely. Carafate twice daily x 1 month. (2) Rectal polyp: Plan: Follow-up outpatient 3 to 4 months. Depending on health situation full colonoscopy in 5 to 6 months for removal of rectal polyp and examination of the remainder of the colon. Pathology and polyp shows benign adenoma without dysplasia stomach biopsies do not show evidence for H. pylori. Admission and Anticipated Discharge Date Admission Date: August 28, 2024 Subjective Follow-up today 2 post PEG placed Patient sleeping arouses to voice. Denies significant abdominal pain. Previous discomfort resolved. Tube feeds started Physical Exam Physical Exam: PEG site examined. Site clean dry without significant induration or discharge. External bolster fixed to the abdomen at approximately 5.5 cm, loosened to 6 cm's. Fairly rotatable but still opposition to the abdominal wall. Results & Data Results & Data Vital Signs (Past 12 Hours) Vital Signs Temp Pulse Pulse Pulse Resp BP Pulse Ox 09/17/24 08:00 36.5 C 77 18 147/80 H 95 09/17/24 03:21 36.7 C 78 17 134/84 95 09/17/24 00:00 78 09/16/24 23:07 36.6 C 73 16 148/87 H 93 O2 Del Method 09/17/24 08:00 Room Air 09/17/24 03:21 Room Air 09/17/24 00:00 09/16/24 23:07 Room Air PG Care Time/CCT Total # of Minutes Spent Total Time Spent with Patient: Total time spent is greater than 50% in coordination of care (as documented) at patient's floor/unit and/or counseling patient: Coding Level of Care Code None Diagnoses PEG (percutaneous endoscopic gastrostomy) status Z93.1 Rectal polyp K62.1
--- NOTE | 2024-09-17 08:26 | Nephrology Progress Note ---
Date of Service September 17, 2024 Assessment & Plan (1) LIDIA (acute kidney injury): Plan: * LIDIA due to profound dehydration and hypotension related to DKA. Urine microscopy revealed granular casts consistent with ATN * Renal ultrasound was negative for obstruction * Temporary dialysis catheter placed on 09/01/24 has been removed. Started HD 09/01. TCC was placed 09/05/[address] Fitzgerald * Patient was last dialyzed 09/12/2024 for 1.6 L UF. No complications * Patient is nonoliguric UO 1650 cc last shift * Serum creatinine continues to increase in between treatments. Patient remains within the injury phase of LIDIA. * Will provide HD this morning. Orders have been placed in EMR and HD RN notified (2) Hematuria: Plan: * Stacy remains in place * Urology consult completed. Outpatient evaluation planned. No concerning lesions on CT. (3) Difficulty swallowing liquids: Plan: * Vocal cord dysfunction/dysphonia likely due to intubation * Video swallow demonstrated aspiration * s/p PEG placement 09/15/24 * Plan 6 weeks PEG tube feeding and then reassess ability to swallow Admission and Anticipated Discharge Date Admission Date: August 28, 2024 Subjective Mrs. Sorenson was evaluated in her hospital room this morning. She is tolerating PEG tube feedings without complication. She voices no medical concerns Review of Systems Constitutional: no fever Eyes: no problem reported Ear, Nose, Mouth, Throat: + dysphagia Respiratory: no cough and no dyspnea Cardiovascular: no chest pain Gastrointestinal: no abdominal pain, no nausea, no vomiting and no diarrhea/loose stools Genitourinary: no problem reported Musculoskeletal: no back pain Physical Exam Constitutional: not in distress Eyes: PERRL, conjunctivae normal, anicteric sclerae ENMT: external ear and nose normal, oropharynx normal Neck: trachea midline, no thyromegaly (R IJ TCC with clean dry dressing in place) Respiratory: normal respiratory effort, lungs clear to auscultation Cardiovascular: RRR, no murmur, no edema Rate/Rhythm: regular rate and regular rhythm Extremities: + edema (1+ dependent pitting edema) Gastrointestinal (Abdomen): normal bowel sounds, soft, nontender, no hepatosplenomegaly (PEG tube in place w/ clean, dry dressing) Musculoskeletal: Extremities: no cyanosis and no clubbing Skin: no rashes, warm and dry Neurologic: awake; not confused Results & Data Vital Signs (Past 12 Hours) Vital Signs Temp Pulse Pulse Pulse Resp BP Pulse Ox 09/17/24 08:00 36.5 C 77 18 147/80 H 95 09/17/24 03:21 36.7 C 78 17 134/84 95 09/17/24 00:00 78 09/16/24 23:07 36.6 C 73 16 148/87 H 93 O2 Del Method 09/17/24 08:00 Room Air 09/17/24 03:21 Room Air 09/17/24 00:00 09/16/24 23:07 Room Air Laboratory Results Laboratory Results - last 24 hr 09/16/24 09/16/24 09/16/24 11:54 16:30 20:05 WBC RBC Hgb Hct MCV MCH MCHC RDW Std Deviation RDW Coeff of Tressa Plt Count MPV Sodium Potassium Chloride Carbon Dioxide Anion Gap BUN Creatinine Est Cr Clr Drug Dosing eGFR BUN/Creatinine Ratio Glucose POC Glucose 78 117 H 131 H Calcium 09/17/24 09/17/24 09/17/24 00:07 04:09 08:04 WBC RBC Hgb Hct MCV MCH MCHC RDW Std Deviation RDW Coeff of Tressa Plt Count MPV Sodium Potassium Chloride Carbon Dioxide Anion Gap BUN Creatinine Est Cr Clr Drug Dosing eGFR BUN/Creatinine Ratio Glucose POC Glucose 147 H 131 H 162 H Calcium 09/17/24 08:37 WBC 12.44 H RBC 3.54 L Hgb 10.5 L Hct 30.6 L MCV 86.4 MCH 29.7 MCHC 34.3 RDW Std Deviation 43.1 RDW Coeff of Tressa 13.9 Plt Count 225 MPV 10.3 Sodium 140 Potassium 3.9 Chloride 108 H Carbon Dioxide 25 Anion Gap 7 BUN 55 H Creatinine 4.23 H D Est Cr Clr Drug Dosing 15.5 eGFR 11.22 BUN/Creatinine Ratio 13.0 Glucose 166 H POC Glucose Calcium 8.4 L PG Care Time/CCT Total # of Minutes Spent Total Time Spent with Patient: Total time spent is greater than 50% in coordination of care (as documented) at patient's floor/unit and/or counseling patient: Coding Level of Care Code 33895 SUB INP/OBS CARE 3/50MIN Diagnoses LIDIA (acute kidney injury) N17.9 Hematuria R31.9 Difficulty swallowing liquids R13.10
[2024-09-17 08:51] LABS: Hematocrit (blood only) 30.6 % (37.0-47.0); Hemoglobin 10.5 g/dl (12.0-16.0); Mean Corpuscular Hemoglobin 29.7 pg (25.0-34.0); Mean Corpuscular Hgb Conc 34.3 g/dL (32.0-36.0); Mean Corpuscular Volume 86.4 fL (80.0-100.0); Mean Platelet Volume 10.3 fL (9.4-12.4); Platelet Count 225 K/uL (130-400); RDW Coefficient of Variation 13.9 % (11.5-14.5); RDW Standard Deviation 43.1 fL (36.4-46.3); Red Blood Count 3.54 M/uL (4.20-5.40); White Blood Count 12.44 K/ul (4.8-10.8)
[2024-09-17 09:07] LABS: Calcium 8.4 mg/dl (8.6-10.3); Creatinine Clr Calc Pharmacy 15.5 ml/min; Potassium 3.9 mmol/L (3.5-5.1)
[2024-09-17] MEDS: HEPARIN SOD (PORCINE) 1000 UNIT/ML IV ONE (12:00)
[2024-09-17] MEDS: HEPARIN SOD (PORCINE) 1000 UNIT/ML IV SCH (12:00)
--- NOTE | 2024-09-17 14:59 | Hospitalist Progress Note ---
Date of Service September 17, 2024 Assessment & Plan (1) Admitted to intensive care unit: (2) Shock: (3) DKA (diabetic ketoacidosis): (4) ARF (acute renal failure): (5) Encephalopathy: (6) Metabolic acidosis: Plan Patient is a 63 yo female with a PMH of PAD, rectal mass on CT awaiting colonoscopy, DM1, diabetic foot ulcer complicated by osteomyelitis, HLD, peripheral neuropathy, hypothyroidism, & lower extremity edema who presented to [facility] on 08/28/24 after being found unresponsive by her family. She was brought to the ED where glucose was 1262 and she was noted to be in DKA with a pH of 6.92. Procalcitonin was elevated on admission. She was intubated for airway protection and initiated on Bicarb and Levophed. Broad spectrum antibiotics were initiated as infectious process could not be ruled out at the time of admission. Now with worsening renal function and in need of HD #Vocal cord malfunction/dysphonia - likely from intubation - ENT was on board recommended steroids, pt's symptoms improved with steroids and racemic epinephrine - currently on solumedrol 40 IV q12h. Titrated down to daily on 09/15. 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 Lansoprazole increased to twice daily dosing. Started Carafate per GI recommendations. - cont glycopyrrolate to help with secretions #Leucocytosis - Most likely from steroids Titrate steroids down - wbc was normal prior to starting steroids #Shock - Resolved #Hypoxic resp failure - Resolved - Now extubated - Saturating well on room air - completed a course of cefazolin for suspected PNA. - cultures negative so far - However, x ray suggests some infiltrates, completed zosyn for suspected aspiration pna (09/09 - 09/16) #Acute renal failure - due to acute tubular necrosis - Now got a tunneled catheter, for HD - Renal function yet to recover - nephro on board, recs appreciated - CM working on outpatient HD chair #DKA with hyperglycemia - resolved - A1c: 8.7 - currently on lantus and sliding scale - continue to monitor #Elevated troponin - suspect demand and poor clearance in the setting of ARF - EKG unremarkable - bedside ECHO with adequate contractility of RV and LV #Metabolic encephalopathy - Resolved - CT head neg #Malnutrition - Prolonged NPO status - failed video swallow 09/11 - Nutritional services on board -Discontinued PPN now that PEG tube is in place Will be able to start tube feeds via PEG tube 09/16 #Hematuria - Stacy draining pink urine - Hb stable - urology following peripherally #Deconditioning - PT/OT on board sr. strategic sourcing manager working on placement #Rectal mass -Sigmoidoscopy done today showed rectal polyp and no mass #PAD s/p right fem endarterectomy #Peripheral neuropathy #Hypothyroidism: on levothyroxine 100mcg at home, change to IV #HLD: rosuvastatin 40mg at home #Chronic lower extremity edema: lasix 40mg daily at home DVT ppx: hep subq , scds CODE STATUS: Addressed 09/16. She wishes to be a DO NOT RESUSCITATE/DO NOT INTUBATE. Documented Disposition: Case management working on placement Admission and Anticipated Discharge Date Admission Date: August 28, 2024 Subjective Patient was seen and examined at 8:50 AM. Denies chest pain or shortness of breath. No new complaints. Review of Systems Review of Systems: All systems reviewed & are unremarkable except as noted in Subjective Physical Exam Physical Exam: General: Awake, conversant. Chronically ill-appearing Heart: S1, S2/regular rate and rhythm, no murmur rubs or gallops Lungs: Clear to auscultation bilaterally. Normal effort Abdomen: Soft/nontender/nondistended. No hepatosplenomegaly Extremities: No clubbing/cyanosis. No edema Behavior: Appropriate, cooperative Results & Data Results & Data Vital Signs (Past 12 Hours) Vital Signs Temp Pulse Pulse Pulse Pulse Resp BP 09/17/24 14:11 86 09/17/24 13:20 36.5 C 82 09/17/24 13:00 85 127/67 09/17/24 12:30 86 120/75 09/17/24 12:00 82 126/69 09/17/24 11:30 78 145/82 H 09/17/24 11:00 78 140/80 09/17/24 10:30 78 145/82 H 09/17/24 10:16 78 169/78 H 09/17/24 10:09 36.4 C L 78 09/17/24 09:29 09/17/24 08:00 76 01/22/25 08:00 36.5 C 77 18 09/17/24 03:21 36.7 C 78 17 BP BP Pulse Ox O2 Del Method 09/17/24 14:11 09/17/24 13:20 155/79 H 09/17/24 13:00 09/17/24 12:30 09/17/24 12:00 09/17/24 11:30 09/17/24 11:00 09/17/24 10:30 09/17/24 10:16 09/17/24 10:09 09/17/24 09:29 Room Air 09/17/24 08:00 09/17/24 08:00 147/80 H 95 Room Air 09/17/24 03:21 134/84 95 Room Air PG Care Time/CCT Total # of Minutes Spent Total Time Spent with Patient: Total time spent is greater than 50% in coordination of care (as documented) at patient's floor/unit and/or counseling patient: Coding Level of Care Code 57909 SUB INP/OBS CARE 2/35MIN Diagnoses Admitted to intensive care unit Z78.9 Shock R57.9 DKA (diabetic ketoacidosis) E13.11 Diabetes mellitus complication detail: with coma Diabetes mellitus type: other specified (including SHILPA) ARF (acute renal failure) N17.9 Encephalopathy G93.40 Metabolic acidosis E87.20 (3) DKA (diabetic ketoacidosis) Diabetes mellitus complication detail: with coma Diabetes mellitus type: other specified (including SHILPA) Qualified Code(s): E13.11 - Other specified diabetes mellitus with ketoacidosis with coma
[2024-09-18] MEDS: LANTUS PER UNIT CHARGE SC SCH (08:11)
[2024-09-18 09:27] LABS: Anion Gap 6 (3-11); BUN Creatinine Ratio 12.2 (10-20); Blood Urea Nitrogen 42 mg/dl (6-23); Calcium 8.3 mg/dl (8.6-10.3); Carbon Dioxide 26 mmol/L (21-32); Chloride 106 mmol/L (98-107); Glucose 189 mg/dl (70-99(Fasting)); Sodium 138 mmol/L (136-145)
--- NOTE | 2024-09-18 10:45 | Nephrology Progress Note ---
Date of Service September 18, 2024 Assessment & Plan (1) LIDIA (acute kidney injury): Plan: * LIDIA due to profound dehydration and hypotension related to DKA. Urine microscopy revealed granular casts consistent with ATN * Renal ultrasound was negative for obstruction * Temporary dialysis catheter placed on 09/01/24 has been removed. Started HD 09/01. TCC was placed 09/05/[address] Fitzgerald * Patient maintains good UO * No acute indication for HD today * Will schedule next HD for am (2) Hematuria: Plan: * Consider removing Stacy when patient is able to get up and use bedside commode * Urology consult completed. Outpatient evaluation planned. No concerning lesions on CT. (3) Difficulty swallowing liquids: Plan: * Vocal cord dysfunction/dysphonia likely due to intubation * Video swallow demonstrated aspiration * s/p PEG placement 09/15/24 * Plan 6 weeks PEG tube feeding and then reassess ability to swallow Admission and Anticipated Discharge Date Admission Date: August 28, 2024 Subjective Mrs. Sorenson was evaluated in her hospital room this morning. She is tolerating PEG tube feedings without complication. She voices no medical concerns Review of Systems Constitutional: no fever Eyes: no problem reported Ear, Nose, Mouth, Throat: + dysphagia Respiratory: no cough and no dyspnea Cardiovascular: no chest pain Gastrointestinal: no abdominal pain, no nausea, no vomiting and no diarrhea/loose stools Genitourinary: no problem reported Musculoskeletal: no back pain Physical Exam Constitutional: not in distress Eyes: PERRL, conjunctivae normal, anicteric sclerae ENMT: external ear and nose normal, oropharynx normal Neck: trachea midline, no thyromegaly (R IJ TCC with clean dry dressing in place) Respiratory: normal respiratory effort, lungs clear to auscultation Cardiovascular: RRR, no murmur, no edema Rate/Rhythm: regular rate and regular rhythm Extremities: + edema (1+ dependent pitting edema) Gastrointestinal (Abdomen): normal bowel sounds, soft, nontender, no hepatosplenomegaly (PEG tube in place w/ clean, dry dressing) Musculoskeletal: Extremities: no cyanosis and no clubbing Skin: no rashes, warm and dry Neurologic: awake; not confused Results & Data Vital Signs (Past 12 Hours) Vital Signs Temp Pulse Pulse Resp BP Pulse Ox O2 Del Method 09/18/24 07:42 36.7 C 79 18 123/72 94 Room Air 01/23/25 07:31 75 09/18/24 03:01 36.6 C 82 17 116/72 94 Room Air 09/18/24 00:00 83 09/17/24 23:10 36.8 C 83 17 118/75 92 Room Air Laboratory Results Laboratory Results - last 24 hr 09/17/24 09/17/24 09/17/24 14:25 16:37 19:58 Sodium Potassium Chloride Carbon Dioxide Anion Gap BUN Creatinine Est Cr Clr Drug Dosing eGFR BUN/Creatinine Ratio Glucose POC Glucose 176 H 214 H 210 H Calcium 09/18/24 09/18/24 09/18/24 00:10 03:58 07:46 Sodium Potassium Chloride Carbon Dioxide Anion Gap BUN Creatinine Est Cr Clr Drug Dosing eGFR BUN/Creatinine Ratio Glucose POC Glucose 179 H 214 H 183 H Calcium 09/18/24 09/18/24 08:43 09:35 Sodium 138 Potassium TNP 3.1 L D Chloride 106 Carbon Dioxide 26 Anion Gap 6 BUN 42 H Creatinine 3.45 H D Est Cr Clr Drug Dosing 19.0 eGFR 14.32 BUN/Creatinine Ratio 12.2 Glucose 189 H POC Glucose Calcium 8.3 L PG Care Time/CCT Total # of Minutes Spent Total Time Spent with Patient: Total time spent is greater than 50% in coordination of care (as documented) at patient's floor/unit and/or counseling patient: Coding Level of Care Code 07773 SUB INP/OBS CARE 3/50MIN Diagnoses LIDIA (acute kidney injury) N17.9 Hematuria R31.9 Difficulty swallowing liquids R13.10
[2024-09-18 11:36] VITALS: TEMP 97.7
[2024-09-18] MEDS: POTASSIUM CHLORIDE 20 MEQ/15 ML UDC PEG STA (12:10)
[2024-09-18] MEDS ORDERED: PHARMACY GLYCEMIC MGMT CONSULT PRN (13:06)
--- NOTE | 2024-09-18 14:15 | Discharge Summary ---
Date of Service September 18, 2024 Admission HPI Per Admitting Provider The patient is a 63-year-old female with a past medical history including rectal mass, peripheral arterial disease, diabetic foot ulcer with osteomyelitis, lipidemia, peripheral neuropathy, hypothyroidism, and lower extremity edema. She presents to the emergency department via EMS, after family check on her for not having significant previous 3 days. They found her unresponsive lying in bed, and she reportedly had a glucose ordered by by EMS. The patient was assessed by emergency department personnel, patient was intubated for airway protection, and was presented to the hospitalist service and ICU for admission. Admission Exam Per Admitting Provider The patient is intubated, unresponsive on the ventilator HEENT--PERRL, EOMI, mucous membranes and oropharynx dry. Neck--supple. No JVD. No bruits. Thyroid normal, trachea midline, no adenopathy. Heart--normal S1 and S2. No murmurs, rubs or gallops. Lungs--few coarse breath sounds bilaterally. Abdomen--normal bowel sounds and soft. Mildly tympanitic and mildly distended Extremities--no cyanosis or clubbing. No edema. Dermatologic--normal skin turgor, normal color, no abnormal lymph nodes, no rash. Neurologic--limited exam Rheumatologic--limited exam Psychiatric--intubated and sedated Principal Diagnosis DKA. Resolved Demand ischemia Metabolic encephalopathy Hypoxic respiratory failure due to pneumonia. Completed antibiotic course. Extubated Acute kidney injury due to acute tubular necrosis, now on dialysis Malnutrition due to prolonged n.p.o. status. Now has PEG tube in place. Tube feeds in progress Vocal cord malfunction/dysphonia. Likely from intubation. Failed swallow eval. PEG tube in place. Deconditioning Rectal mass. Turned out to be rectal polyp Discharge Exam General: Awake, conversant. Chronically ill-appearing Heart: S1, S2/regular rate and rhythm, no murmur rubs or gallops Lungs: Clear to auscultation bilaterally. Normal effort Abdomen: Soft/nontender/nondistended. No hepatosplenomegaly Extremities: No clubbing/cyanosis. No edema Behavior: Appropriate, cooperative Discharge Data Allergies Allergy/AdvReac Type Severity Reaction Status Date / Time tetanus toxoid, adsorbed AdvReac Intermediate SWELLING Verified 08/15/24 13:04 AT SITE AND REDNESS Consultations 08/28/24 20:16 ED Decision to Admit Stat 08/28/24 20:41 Consult Roller Mill Operator Stat 08/28/24 22:10 Consult Roller Mill Operator Routine 08/30/24 06:13 Consult Nephrology Routine 09/01/24 08:48 Consult Gastroenterology Routine 09/04/24 10:38 Consult Vascular Surgery Routine 09/05/24 11:29 Consult Physician Routine 09/07/24 18:48 Consult Urology Routine 09/12/24 17:31 Consult Gastroenterology Routine Procedures Performed Operation Date: 09/15/24 17:00 Actual Procedures p EGD Gastric Tube Placement - Sourav Francis MD s EGD Biopsy Cytology - Sourav Francis MD s Flexible Sigmoidoscopy Biopsy - Sourav Francis MD Ordered Studies Chest X-Ray 08/28/24 18:31 EXAM: X-ray chest one-view portable CLINICAL HISTORY: Stroke alert PRIORS: 03/31/2024 TECHNIQUE: Frontal view chest FINDINGS: An endotracheal tube is present, terminating approximately 1.5 cm above the muna. Lung volumes are diminished. Heart size is normal. No pneumothorax. Osseous structures demonstrate no acute abnormality. No radiopaque foreign body. IMPRESSION: Endotracheal tube terminating 1.5 cm superior to the muna. Tube could be withdrawn approximately 3 cm or as appropriate. Electronically signed by Talisha Colvin 08-28-2024 7:[address] 08/28/24 18:31 Exam(s): CT HEAD Without Contrast EXAM: CT Head Without Intravenous Contrast CLINICAL HISTORY: Reason for exam: ams. TECHNIQUE: Axial computed tomography images of the head/brain without intravenous contrast. CTDI is 63.9 mGy and DLP is mGy-cm. Automated exposure control was utilized for the study. A dose lowering technique was utilized adhering to the principles of ALARA. COMPARISON: 02/23/24 FINDINGS: Brain: No intracranial hemorrhage. Senescent changes. No apparent acute cortical infarct. No midline shift. Ventricles: No hydrocephalus. Bones/joints: No acute fracture. Soft tissues: Unremarkable. Sinuses: Minimal sinus mucosal thickening. Mastoid air cells: No mastoid effusion. Orbits: Exophthalmos and bilateral cataract surgery. Endotracheal tube. IMPRESSION: No intracranial hemorrhage. Senescent changes. Electronically signed by: Agustin Waggoner M.D. 08/28/24 20:33 PM Chest X-Ray 08/28/24 19:29 Exam(s): XR CXR 1 VIEW EXAM: XR Chest, 1 View CLINICAL HISTORY: Reason for exam: line placement. TECHNIQUE: Frontal view of the chest. COMPARISON: No relevant prior studies available. FINDINGS: Lungs: Mild consolidative atelectasis in the left lung base. Reduced lung volumes. Pleural space: No pneumothorax. Mediastinum: Unremarkable. Bones/joints: Instrumentation related to the left humerus. Tubes, lines and devices: Endotracheal tube just above the orifice of the right mainstem bronchus. Right IJ central line near the junction of the right atrium and IVC. Upper abdomen: Cholecystectomy clips. IMPRESSION: 1. Endotracheal tube just above the orifice of the right mainstem bronchus. Reposition. 2. Right IJ central line near the junction of the right atrium and IVC. Electronically signed by: Agustin Waggoner M.D. 08/28/24 20:24 PM Chest X-Ray 08/30/24 06:00 XR chest 1V portable CLINICAL HISTORY: eval lines/tubes/lung esteban COMPARISON STUDY: Chest radiograph August 28, 2024. FINDINGS: Tip of endotracheal tube is 2.2 cm above the muna. Tip of nasogastric tube is below the lower aspect of this image but at least within the mid body of the stomach. Right internal jugular central line remains in place. There is no pneumothorax. Low lung volumes are unchanged. Interstitial thickening has mildly progressed. There are small bilateral pleural effusions associated bibasilar opacities. These have slightly progressed. IMPRESSION: 1. Satisfactory positioning of lines and tubes. 2. No pneumothorax. 3. Mild progression of pulmonary edema. 4. Small bilateral pleural effusions with associated bibasilar opacities which could reflect atelectasis or pneumonia. These have progressed. ACT 112: Negative or not required by law. Electronically signed by: Navjot Live M.D. 08/30/2024 8:29 AM Chest X-Ray 08/30/24 18:30 Chest radiograph, one view History: Intubated Comparison: 08/28/2024 Findings: Single AP view of the chest performed. The endotracheal tube tip is now 3.3 cm above the muna. Right IJ central venous catheter tip is at the low SVC. There is loss of distinction of the costophrenic angle bilaterally, as may be seen with pleural effusions. No pneumothorax. The cardiomediastinal silhouette is within normal limits. Normal pulmonary vascularity. No evidence for lymphadenopathy. No visualized bony or soft tissue abnormality. Impression: ET tube as above. Possible pleural effusions are now present. Electronically signed by Haja Palomo 08-30-2024 6:50 PM Chest X-Ray 08/31/24 06:00 EXAM: XR chest 1V portable CLINICAL HISTORY: EVALUATE LINES/TUBES/ LUNG FIELD WHILE INTUBATED. TECHNIQUE: An X-ray image of the chest is obtained in 1 view: AP projection. COMPARISON: Prior X-ray study dated 08/30/2024. FINDINGS: Endotracheal tube is seen with its tip 5 cm from the muna. Stationary position of right CVL and NG tube. Pulmonary Parenchyma: Stationary bilateral basal diffuse opacities, obliterated costophrenic angles, prominent broncho vascular markings, and hilar vascularity, suggesting pulmonary congestion with pleural effusion. Heart and Mediastinum: Heart size and shape are normal. No mediastinal widening or masses. No hilar or mediastinal lymphadenopathy. Bony Thorax: Bony thorax appears intact without fractures or deformities. Soft Tissues: Soft tissues overlying the chest wall are unremarkable. IMPRESSION: 1. Endotracheal tube seen with its tip 5cm from muna. 2. Stationary position of right CVL and NG tube. 3. Stationary bilateral basal diffuse opacities, obliterated costophrenic angles, prominent broncho vascular marking,s and hilar vascularity, suggesting pulmonary congestion with pleural effusion. Electronically signed by Annamaria Murcia 08-31-2024 07:29 AM Renal Ultrasound 08/31/24 11:26 RENAL ULTRASOUND CLINICAL HISTORY: Acute kidney injury. COMPARISON STUDY: None. TECHNIQUE: Sonography of the kidneys and the urinary bladder was performed. FINDINGS: This exam is compromised by suboptimal hydration. The right kidney measures 12.8 x 5.9 x 6.2 cm and the left kidney measures 11.9 x 5.7 x 6.5 cm. There is mild right hydronephrosis. There is no left hydronephrosis. Renal size and echogenicity are normal. There is a Stacy within the bladder. IMPRESSION: 1. Mild right hydronephrosis. No left hydronephrosis. 2. Exam mildly compromised by suboptimal penetration. ACT 112: Negative or not required by law. Electronically signed by: Navjot Live M.D. 08/31/2024 2:51 PM Chest X-Ray 09/01/24 06:00 EXAM: XR chest 1V portable CLINICAL HISTORY: EVAL LINES/TUBES/LUNG ESTEBAN WHILE INTUBATED. TECHNIQUE: X-ray image of the chest obtained in frontal projection. COMPARISON: Prior X-ray dated 08/31/2024 for comparison. FINDINGS: ETT with tip 5.3 cm above the muna. Right CVL and NG tube in situ. Pulmonary Parenchyma: Stable bilateral basal lung opacities and obscured costophrenic angles are likely pleural effusions. Prominent bilateral parahilar markings. Heart and Mediastinum: Heart size and shape are normal. No mediastinal widening or masses. No hilar or mediastinal lymphadenopathy. Bony Thorax: Bony thorax appears intact without fractures or deformities. Soft Tissues: Soft tissues overlying the chest wall are unremarkable. IMPRESSION: 1. ETT with tip 5.3 cm above the muna. 2. Right CVL and NG tube in situ. 3. Stable bilateral basal lung opacities and obscured costophrenic angles likely pleural effusion. Electronically signed by Annamaria Murcia 09-01-2024 08:08 AM Chest X-Ray 09/07/24 11:21 XR chest 1V portable CLINICAL HISTORY: follow up TECHNIQUE: Single frontal radiograph of the chest was obtained. Comparison: Comparison is made to chest radiograph 09/01/2024 FINDINGS: Lines and tubes are stable. The cardiomediastinal silhouette is normal. Right mid and lower lung airspace opacities are seen. No evidence of pleural effusion or pneumothorax. IMPRESSION: Right mid and lower lung airspace opacities are minimally more conspicuous than in the prior exam. This may represent atelectasis, pneumonia, and/or aspiration. ACT 112: Negative or not required by law. Electronically signed by: Иван Jeronimo M.D. 09/07/2024 11:44 AM Videofluoroscopic Swallow 09/11/24 10:00 FL video swallow CLINICAL HISTORY: 63 years-old Female with r/o aspiration. TECHNIQUE: Video fluoroscopic evaluation of swallowing was performed in the AP and lateral projections by the speech pathology staff. The patient is fed varying consistencies of barium. FLUOROSCOPY TIME: 1.32 minutes. 2684 images. 4.51 mGy. COMPARISON STUDY: None. FINDINGS: There is abnormal hyoid excursion and epiglottic deflection. Disordered and delayed oropharyngeal transit. Aspiration with thin liquid barium. Retention noted within the valleculae and piriform sinuses with multiple consistencies. IMPRESSION: 1. Aspiration with thin liquid barium. 2. Please see the speech pathologist report for detailed findings and recommendations. ACT 112: Negative or not required by law. Electronically signed by: Wyatt Wolf M.D. 09/11/2024 12:13 PM 08/28/24 18:31 CT head/brain wo con Stat 08/31/24 11:26 US renal/blad retro comp Routine 09/05/24 07:31 EV cvc insrt tunnel wo prt/welfare adviser Routine US EV guide vascular access Routine 09/11/24 10:00 FL video swallow Routine Hospital Course (1) Admitted to intensive care unit: (2) Shock: (3) DKA (diabetic ketoacidosis): (4) ARF (acute renal failure): (5) Encephalopathy: (6) Metabolic acidosis: Plan Patient is a 63 yo female with a PMH of PAD, rectal mass on CT awaiting colonoscopy, DM1, diabetic foot ulcer complicated by osteomyelitis, HLD, peripheral neuropathy, hypothyroidism, & lower extremity edema who presented to [facility] on 08/28/24 after being found unresponsive by her family. She was brought to the ED where glucose was 1262 and she was noted to be in DKA with a pH of 6.92. Procalcitonin was elevated on admission. She was intubated for airway protection and initiated on Bicarb and Levophed. Broad spectrum antibiotics were initiated as infectious process could not be ruled out at the time of admission. Now with worsening renal function and in need of HD #Vocal cord malfunction/dysphonia - likely from intubation - ENT was on board recommended steroids, pt's symptoms improved with steroids and racemic epinephrine -Was treated with IV Solu-Medrol. Will discharge on p.o. prednisone tapering dose - pt was on PPN due to inability to insert PICC for TPN - pt failed repeat video swallow on 09/11, final SWEAT BOX ATTENDANT recs appreciated -PEG tube placed 09/15 EGD showed gastritis/esophagitis. Will discharge on lansoprazole. Started Carafate per GI recommendations to be continued for a month #Leucocytosis - Most likely from steroids Titrate steroids down - wbc was normal prior to starting steroids #Shock - Resolved #Hypoxic resp failure - Resolved - Now extubated - Saturating well on room air - completed a course of cefazolin for suspected PNA. - cultures negative so far - However, x ray suggests some infiltrates, completed zosyn for suspected aspiration pna (09/09 - 09/16) #Acute renal failure - due to acute tubular necrosis - Now got a tunneled catheter, for HD - Renal function yet to recover #DKA with hyperglycemia - resolved - A1c: 8.7 - currently on lantus and sliding scale - continue to monitor #Elevated troponin - suspect demand and poor clearance in the setting of ARF - EKG unremarkable - bedside ECHO with adequate contractility of RV and LV #Metabolic encephalopathy - Resolved - CT head neg #Malnutrition - Prolonged NPO status - failed video swallow 09/11 - Nutritional services on board -Discontinued PPN now that PEG tube is in place PEG tube feeds started on 09/16 #Hematuria - Stacy draining pink urine - Hb stable - urology following peripherally #Deconditioning - PT/OT on board Going to rehab #Rectal mass -Sigmoidoscopy done 09/16 showed rectal polyp and no mass #PAD s/p right fem endarterectomy #Peripheral neuropathy #Hypothyroidism: on levothyroxine 100mcg at home, change to IV #HLD: rosuvastatin 40mg at home #Chronic lower extremity edema: lasix 40mg daily at home. Now on dialysis DVT ppx: hep subq , scds CODE STATUS: Addressed 09/16. She wishes to be a DO NOT RESUSCITATE/DO NOT INTUBATE. Documented Disposition: [facility]charge to [facility] today Total Time Total Time Spent Total Time Spent (In Minutes): 35 Discharge Plan Discharge Items Patient Disposition: Transfer Inpatient Rehab Fac Reason For Visit: DKA,SHOCK,HYPOTENSION Discharge Diagnosis: DKA. Resolved Demand ischemia Metabolic encephalopathy Hypoxic respiratory failure due to pneumonia. Completed antibiotic course. Extubated Acute kidney injury due to acute tubular necrosis, now on dialysis Malnutrition due to prolonged n.p.o. status. Now has PEG tube in place. Tube feeds in progress Vocal cord malfunction/dysphonia. Likely from intubation. Failed swallow eval. PEG tube in place. Deconditioning Rectal mass. Turned out to be rectal polyp Activity: As commented below Activity Comment: Per PT/OT recommendations Non-emergency contact: Primary Care Provider Call non-emergency contact if: you have any medication questions and your symptoms worsen Follow-up/Referrals: Radha Briseno CRNP [Primary Care Provider] - Diet: Nothing by Mouth Diet Comment: Tube feeds Addtl Attending Provider Instructions: Tube feeds: Tube feeds at goal will provide 960 mL TV, 1920 kcal, 87 g protein, 678 mL free water, 176 g carbohydrate Add 100 mL free water flushes via PEG tube every 4 hours Keep head of bed elevated greater than 30 to 45 degrees at all times, provide mouth care twice daily Monitor need for bowel movement Once at rehab, supervisor carding may work towards transitioning patient to bolus feeds once aspiration risk minimized. Pending Studies at Discharge: No Stand-Alone Forms: My [facility] [employer] Skilled Items Patient informed of condition?: Yes DNR: Yes Discharge Level of Care: Acute rehab Communicable Disease: No Discharge Prognosis: Stable Lines: None Urinary Catheter: No Medications and DC Order Prescriptions: New lansoprazole [Prevacid SoluTab] 30 mg Tablet,Disintegrat, Delay Rel 30 mg feeding tube DAILY 30 Days Qty: 30 0RF sucralfate 100 mg/mL Suspension 1 g PO BID 30 Days Qty: 600 0RF prednisone 10 mg tablet 10 mg PO DAILY Qty: 20 0RF Rx Instructions: 4 tabs for 2 days, then drop by 1 tab every 2 days, then stop Continued (DME) pen needle, diabetic [Comfort EZ Pen [place]] 32 gauge x 5/16" needle See Rx Instructions .Route Qty: 100 5RF Rx Instructions: Use 2 per day (DME) insulin syringe-needle U-100 [BD Insulin Syringe Ultra-Fine] 0.3 mL 31 gauge x 5/16" syringe See Rx Instructions .Route Qty: 300 3RF Rx Instructions: use with insulin injections TID (DME) Dexcom G7 Sensor Device See Rx Instructions .ROUTE .MEDSUPPLY Qty: 9 3RF Rx Instructions: change every 10 days (DME) blood-glucose meter [OneTouch Ultra2 Meter] Misc See Rx Instructions .Route Rx Instructions: As directed (DME) OneTouch Ultra Test Strip See Rx Instructions .Route Rx Instructions: As directed (DME) Dexcom G7 Marine Engine [employer]ic Misc See Rx Instructions .ROUTE .MEDSUPPLY Qty: 1 5RF Rx Instructions: As directed insulin glargine [Lantus Solostar U-100 Insulin] 100 unit/mL (3 mL) insulin pen 15 unit subcut BID Qty: 30 5RF Rx Instructions: Inject 15 units twice a day. levothyroxine 100 mcg tablet 100 mcg PO QAM Qty: 90 5RF Rx Instructions: take 1 tablet in AM 30-45 minutes before meal and other medications. glucagon 3 mg/actuation spray,non-aerosol 3 mg intranasal ONCE PRN (Reason: Hypoglycemia) Rx Instructions: To be used in emergency hypoglycemia. insulin aspart U-100 100 unit/mL solution See Rx Instructions .ROUTE .COMPLEX Rx Instructions: INJECT 8 UNITS SUBCUTANEOUSLY WITH EACH MEAL AND SLIDING SCALE DOSING UP TO 40 UNITS DAILY Changed oxycodone-acetaminophen [Percocet] 5-325 mg Tablet 1 - 2 tab feeding tube Q6H PRN (Reason: pain) Qty: 20 0RF ibuprofen [Advil] 200 mg tablet 600 mg feeding tube QID PRN (Reason: fever or pain) Qty: 30 0RF rosuvastatin 40 mg tablet 40 mg feeding tube QAM Qty: 0 0RF Rx Instructions: Take one tablet by mouth once a day. Discontinued furosemide [Lasix] 40 mg tablet 40 mg PO QAM Discharge Orders: Discharge Order (Routine); Ordered 09/18/24 Ordered By: Carmela Altamirano/Other Patient Handouts: Treating Dysphagia, Understanding Dysphagia Admission Data Admit Date/Time: 08/28/24 20:53 Attending Provider: Carmela Huitron Admit Provider: Huber Gayle Primary Care Provider: Radha Briseno Other Providers: Issac Perez; [facility]; [facility]; Huber Gayle; Adin Sow; Luis M Holm; Wes Lam; Taryn Curry; Sandie Xiong; Jenn Guzmán; Hailee Pineda; Lalo Gaytan; Aline Diaz; Oneil Chavez; Evelyn Panda; Jennifer Leonardo; Cherise Jackson; Yolanda Vital; Maria Eugenia Mix; Kerri Arias; Douglas Garcia; Reba Rosa; Rashel Cleveland Jr; Scottie Brewer.; Yair Haynes; Marquise Paz; Edward Zaragoza; Elizabeth Watson.; Toby Velazco I; Nyasia Caballero; Sourav Francis; Gavino Fitzgerald; Nate Floyd; Samuel Tomlin.; Nirmal Simon [facility]
[2024-09-18 15:51] VITALS: BP 143/86; PULSE 86; RESP 18; O2SAT 98
[2024-09-19] MEDS ORDERED: HEPARIN SOD (PORCINE) 1000 UNIT/ML IV ONE (07:00)
[2024-09-19] MEDS ORDERED: EPOETIN ALFA 10,000 UNITS/ML VIAL IV ONE (07:00)
--- NOTE | 2024-09-19 14:04 | Coding Query ---
SEPSIS To promote full compliance with coding requirements relating to patient care, physician participation is requested in all cases of end packer uncertainty. Please assist us with the question(s) below: In responding to this query, please exercise your independent professional judgement. The fact that a question is asked does not imply that any particular answer is desired or expected. We appreciate your clarification on this issue. Throughout the medical record, you have clearly documented a localized infection and your patient has clinical evidence of a generalized sepsis or severe sepsis. The term urosepsis is a nonspecific entity and is coded as an UTI. If the patient has sepsis, severe sepsis, from an urinary source or some other source, please clarify in your response below. The medical record reflects the following clinical findings: (With dates as appropriate) (Body temperature of >38.3 C(101 F) or <36 C(96.8F), pulse >90/minute, respirations >20/minute, WBC count >12,000 or <4,000, altered mental status, significant edema or positive fluid balance, hyperglycemia without diabetes, hypotension, metabolic acidosis (elev. lactate level, anion gap or reduced blood pH), shock, positive blood culture (enter organism) ____ ()Bacteremia (Nonspecific laboratory finding of bacteria in the blood) Specify Organism () Present on Admission () Not present on admission () Unable to clinically determine () Septicemia (Systemic disease associated with the presence of pathogenic microorganisms in the blood): Specify Organism () Present on Admission () Not present on admission () Unable to clinically determine () Sepsis Specify Organism Specify Associated Condition/Diagnosis () Present on Admission () Not present on admission () Unable to clinically determine () Severe Sepsis (Sepsis associated with acute organ dysfunction) Specify Organism Specify Associated Condition/Diagnosis () Present on Admission () Not present on admission () Unable to clinically determine () Septic Shock (Severe sepsis with acute circulatory failure, unexplained by other causes) () Present on Admission () Not present on admission () Unable to clinically determine (x) Other, patient has: Leukocytosis that was steroid-induced. She had DKA. She did not have sepsis MTDD
== END 2024-09-18 18:10 | DRG 637 ==
LOC: ED 18:16 → SUATTDRO 20:53 → 1E 20:53 → 2S 09-04 18:41 → UNDODISIN 09-12 12:42